=== PATIENT | female | born 1970 | race Caucasian/White ===

== ENCOUNTER 2016-12-20 16:10 | Emergency (ER) | payer BC ==
--- NOTE | 2016-12-20 17:06 | EDM.PDOC ---
ED HPI GENERAL MEDICAL PROBLEM - General Chief Complaint: Genitourinary Problem Stated Complaint: Dysuria Time Seen by Provider: 12/20/16 16:40 Source of Information: Reports: Patient History Limitations: Reports: No Limitations - History of Present Illness INITIAL COMMENTS - FREE TEXT/NARRATIVE: HISTORY AND PHYSICAL: History of present illness: [A she presents to the emergency room today with complaints of vaginal itching with discharge, irritation and discomfort to the internal and external genitalia , low back pain, appetite x 5 days. Reports that she thought [id number] Monistat insert with topical cream which she used 5 days ago. States she had mild relief with medication but continued to have symptoms. Continues to use the topical cream with no relief. This morning she woke up with low back pain, dark urine, and dysuria. Reports that she is and in a monogamous relationship with no concerns of STI's.] Review of systems: As per history of present illness and below otherwise all systems reviewed and negative. Past medical history: As per history of present illness and as reviewed below otherwise noncontributory. Surgical history: As per history of present illness and as reviewed below otherwise noncontributory. Social history: No reported history of drug or alcohol abuse. Family history: As per history of present illness and as reviewed below otherwise noncontributory. Physical exam: Gen.: 46-year-old female appears nontoxic. Appropriate for age HEENT: Atraumatic, normocephalic. Lungs: Clear to auscultation, breath sounds equal bilaterally, chest nontender. Heart: S1S2, regular, negative for clicks, rubs, or JVD. Abdomen: Soft, nondistended, mild suprapubic tenderness with palpation. Negative for masses or hepatosplenomegaly. Right costovertebral tenderness with palpation. Pelvis: Stable nontender. Genitourinary: External and internal genitalia appears inflamed and irritated. Yeast-like drainage noted. Genitalia is tender to touch. No speculum exam was completed at this time. Rectal: Deferred. Extremities: Atraumatic, negative for cords or calf pain. Neurovascular unremarkable. Neuro: Awake, alert, oriented. Motor and sensory unremarkable throughout. Exam nonfocal. Diagnostics: [UA, urine ] Therapeutics: [None] Impression: [Vulvovaginitis Cutaneous candidiasis, external genitalia] Plan: [Rx written for Diflucan 150 mg #2 sig one by mouth now, repeat in 3 days 0 refills, nystatin 100,000 units per gram #1 large tube sig apply to affected area 3 times a day 0 refills. Discussed with patient that her urinalysis appears unremarkable. Recommend she follow-up with her PCP if she is not improving later this week. Strict return precautions are reviewed with patient. All of her questions are answered and concerns are addressed.] Definitive disposition and diagnosis as appropriate pending reevaluation and review of above. 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: Endocrine/Metabolic History: Reports: Diabetes, Type II - Infectious Disease History Infectious Disease History: Reports: Chicken Pox - Past Surgical History Female Surgical History: Reports: Hysterectomy Social & Family History - Family History Family Medical History: Noncontributory Cardiac: Reports: Heart Failure, Hypertension, [place] - Tobacco Use Smoking Status *Q: Never Smoker Second Hand Smoke Exposure: No - Caffeine Use Caffeine Use: Reports: Coffee - Recreational Drug Use Recreational Drug Use: No ED ROS GENERAL - Review of Systems Review Of Systems: ROS reveals no pertinent complaints other than HPI. ED EXAM, RENAL/ - Physical Exam Exam: See Below (The history of present illness) Course - Vital Signs Last Recorded V/S: Last Vital Signs Temp 97.1 F 12/20/16 16:23 Pulse 90 12/20/16 16:23 Resp 20 12/20/16 16:23 BP 181/95 H 12/20/16 16:23 Pulse Ox 99 12/20/16 16:23 - Orders/Labs/Meds Labs: Laboratory Tests 12/20/16 12/20/16 Range/Units 16:48 16:48 Urine Color YELLOW Urine Appearance SLT CLOUDY Urine pH 6.0 (5.0-8.0) Ur Specific [place] 1.025 (1.001-1.035) Urine Protein NEGATIVE (NEGATIVE) mg/dL Urine Glucose (UA) >=1000 (NEGATIVE) mg/dL Urine Ketones NEGATIVE (NEGATIVE) mg/dL Urine Occult Blood SMALL H (NEGATIVE) Urine Nitrite NEGATIVE (NEGATIVE) Urine Bilirubin NEGATIVE (NEGATIVE) Urine Urobilinogen 4.0 H (<2.0) EU/dL Ur Leukocyte Esterase NEGATIVE (NEGATIVE) Urine RBC 1-2 (0-2/HPF) Urine WBC 3-5 (0-5/HPF) Ur Epithelial Cells MODERATE (NONE-FEW) Urine Bacteria FEW (NEGATIVE) Urine Yeast MODERATE Urine HCG, Qual NEGATIVE (NEGATIVE) Departure - Departure Time of Disposition: 17:41 Disposition: Home, Self-Care 01 Condition: Good Clinical Impression: Vulvovaginitis, Cutaneous candidiasis - Discharge Information Forms: ED Department Discharge Additional Instructions: The following information is given to patients seen in the emergency department who are being discharged to home. This information is to outline your options for follow-up care. We provide all patients seen in our emergency department with a follow-up referral. The need for follow-up, as well as the timing and circumstances, are variable depending upon the specifics of your emergency department visit. If you don't have a primary care physician on staff, we will provide you with a referral. We always advise you to contact your personal physician following an emergency department visit to inform them of the circumstance of the visit and for follow-up with them and/or the need for any referrals to a consulting specialist. The emergency department will also refer you to a specialist when appropriate. This referral assures that you have the opportunity for follow-up care with a specialist. All of these measure are taken in an effort to provide you with optimal care, which includes your follow-up. Under all circumstances we always encourage you to contact your private physician who remains a resource for coordinating your care. When calling for follow-up care, please make the office aware that this follow-up is from your recent emergency room visit. If for any reason you are refused follow-up, please contact the [facility] emergency department at and asked to speak to the emergency department charge nurse. [facility] [address] [place] [id number] Follow-up with your primary care provider at the clinic listed above in 48-72 hours. Take medications as prescribed. Return to ER as needed as discussed.
[2016-12-20 17:50] VITALS: BP 138/79
== END 2016-12-20 17:56 | disposition home or self-care (01) ==
LOC: MW.ED 16:10
DX: N76.0 Acute vaginitis (principal); B37.3 Candidiasis of vulva and vagina; E78.00 Pure hypercholesterolemia, unspecified; I10 Essential (primary) hypertension; J45.909 Unspecified asthma, uncomplicated; E11.9 Type 2 diabetes mellitus without complications; Z90.710 Acquired absence of both cervix and uterus; Z79.4 Long term (current) use of insulin; Z79.84 Long term (current) use of oral hypoglycemic drugs
CPT/HCPCS: 81001; 81025; 99283

== ENCOUNTER 2017-08-10 15:16 | Emergency (ER) | payer BC ==
[2017-08-10 15:39] VITALS: BP 171/77
--- NOTE | 2017-08-10 16:25 | EDM.PDOC ---
ED HPI GENERAL MEDICAL PROBLEM - General Chief Complaint: ENT Problem Stated Complaint: BLOODY NOSE 3RD TIME TODAY Time Seen by Provider: 08/10/17 16:05 Source of Information: Reports: Patient History Limitations: Reports: No Limitations - History of Present Illness INITIAL COMMENTS - FREE TEXT/NARRATIVE: HISTORY AND PHYSICAL: History of present illness: [Patient comes to the emergency room complaining of bloody she has had 3 today: 3 AM, 8:30 AM and 2:30 this afternoon. No known precipitating factor. No trauma. Checked her blood pressure at the time of her bloody nose this afternoon and had readings of 170s over 70s. Has been passing clots. States that she has filled 5 dish towels with blood. Was recently started on diclofenac for knee pain. Started medication on Tuesday. History of hypertension and type 2 diabetes. Most recent A1c was in May and was over 12. Denies headache, sore throat. No recent illness or infection. No chest pain shortness of breath and difficulty breathing.] Review of systems: As per history of present illness and below otherwise all systems reviewed and negative. Past medical history: As per history of present illness and as reviewed below otherwise noncontributory. Surgical history: As per history of present illness and as reviewed below otherwise noncontributory. Social history: No reported history of drug or alcohol abuse. Family history: As per history of present illness and as reviewed below otherwise noncontributory. Physical exam: HEENT: Atraumatic, normocephalic. Oral mucous membranes are pink and moist. Tonsillar swelling erythema or exudate. Dry blood in right nare. No active bleeding is appreciated. Unable to locate the source of bleeding. Neck supple, no lymphadenopathy. Lungs: Clear to auscultation, breath sounds equal bilaterally. Heart: S1S2, regular rate and rhythm. Abdomen: Soft, nondistended, nontender. Pelvis: Stable nontender. Genitourinary: Deferred. Rectal: Deferred. Extremities: Atraumatic. Neurovascular unremarkable. Neuro: Awake, alert, oriented. Motor and sensory unremarkable throughout. Exam nonfocal. Diagnostics: [CBC, BMP, PT/INR, TSH] Impression: [epistaxis ] Plan: [Cotton swabs soaked in lidocaine with epinephrine are inserted in R nare. Rhino Rocket are placed in R nare w/o difficulty. 8mL of air injected into bulb. Procedure is performed without difficulty. F/u in ER for removal in 72 hours. Strict return precautions are reviewed. ] Definitive disposition and diagnosis as appropriate pending reevaluation and review of above. 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: Musculoskeletal History: Reports: Fibromyalgia Endocrine/Metabolic History: Reports: Diabetes, Type II - Infectious Disease History Infectious Disease History: Reports: Chicken Pox - Past Surgical History Female Surgical History: Reports: Hysterectomy Social & Family History - Family History Family Medical History: Noncontributory Cardiac: Reports: Heart Failure, Hypertension, [place] Endocrine/Metabolic: Reports: Diabetes, type II - Tobacco Use Smoking Status *Q: Former Smoker Years of Tobacco use: 20 Packs/Tins Daily: 0 Used Tobacco, but Quit: Yes Month/Year Tobacco Last Used: 13 years ago Second Hand Smoke Exposure: No - Caffeine Use Caffeine Use: Reports: Coffee, Tea - Alcohol Use Days Per Week of Alcohol Use: 1 Number of Drinks Per Day: 2 Total Drinks Per Week: 2 - Recreational Drug Use Recreational Drug Use: No ED ROS ENT - Review of Systems Review Of Systems: ROS reveals no pertinent complaints other than HPI. ED EXAM, ENT - Physical Exam Exam: See Below Course - Vital Signs Last Recorded V/S: Last Vital Signs Temp 97.6 F 08/10/17 15:37 Pulse 93 08/10/17 15:37 Resp 18 08/10/17 15:37 BP 171/77 H 08/10/17 15:37 Pulse Ox 98 08/10/17 15:37 - Orders/Labs/Meds Labs: Laboratory Tests 08/10/17 08/10/17 08/10/17 Range/Units 16:30 16:30 16:30 WBC 4.49 (4.0-11.0) K/uL RBC 4.20 L (4.30-5.90) M/uL Hgb 11.4 L (12.0-16.0) g/dL Hct 34.7 L (36.0-46.0) % MCV 82.6 (80.0-98.0) fL MCH 27.1 (27.0-32.0) pg MCHC 32.9 (31.0-37.0) g/dL RDW Std Deviation 40.4 (28.0-62.0) fl RDW Coeff of Speedy 13 (11.0-15.0) % Plt Count 133 L (150-400) K/uL MPV 10.10 (7.40-12.00) fL Neut % (Auto) 72.6 (48.0-80.0) % Lymph % (Auto) 18.5 (16.0-40.0) % [place] % (Auto) 7.1 (0.0-15.0) % Eos % (Auto) 1.6 (0.0-7.0) % Baso % (Auto) 0.2 (0.0-1.5) % Neut # (Auto) 3.3 (1.4-5.7) K/uL Lymph # (Auto) 0.8 (0.6-2.4) K/uL [place] # (Auto) 0.3 (0.0-0.8) K/uL Eos # (Auto) 0.1 (0.0-0.7) K/uL Baso # (Auto) 0.0 (0.0-0.1) K/uL Nucleated RBC % 0.0 /100WBC Nucleated RBCs # 0 K/uL INR 1.04 APTT (18.6-31.3) SEC Sodium 142 (136-145) mmol/L Potassium 3.8 (3.5-5.1) mmol/L Chloride 106 (98-107) mmol/L Carbon Dioxide 28.8 (21.0-32.0) mmol/L BUN 19 H (7.0-18.0) mg/dL Creatinine 1.0 (0.6-1.0) mg/dL Est Cr Clr Drug Dosing 69.81 mL/min Estimated GFR (MDRD) > 60.0 ml/min Glucose 143 H (74-106) mg/dL Calcium 8.6 (8.5-10.1) mg/dL TSH 3rd Generation 1.69 (0.36-3.74) uIU/mL 08/10/17 Range/Units 16:30 WBC (4.0-11.0) K/uL RBC (4.30-5.90) M/uL Hgb (12.0-16.0) g/dL Hct (36.0-46.0) % MCV (80.0-98.0) fL MCH (27.0-32.0) pg MCHC (31.0-37.0) g/dL RDW Std Deviation (28.0-62.0) fl RDW Coeff of Speedy (11.0-15.0) % Plt Count (150-400) K/uL MPV (7.40-12.00) fL Neut % (Auto) (48.0-80.0) % Lymph % (Auto) (16.0-40.0) % [place] % (Auto) (0.0-15.0) % Eos % (Auto) (0.0-7.0) % Baso % (Auto) (0.0-1.5) % Neut # (Auto) (1.4-5.7) K/uL Lymph # (Auto) (0.6-2.4) K/uL [place] # (Auto) (0.0-0.8) K/uL Eos # (Auto) (0.0-0.7) K/uL Baso # (Auto) (0.0-0.1) K/uL Nucleated RBC % /100WBC Nucleated RBCs # K/uL INR APTT 27.5 (18.6-31.3) SEC Sodium (136-145) mmol/L Potassium (3.5-5.1) mmol/L Chloride (98-107) mmol/L Carbon Dioxide (21.0-32.0) mmol/L BUN (7.0-18.0) mg/dL Creatinine (0.6-1.0) mg/dL Est Cr Clr Drug Dosing mL/min Estimated GFR (MDRD) ml/min Glucose (74-106) mg/dL Calcium (8.5-10.1) mg/dL TSH 3rd Generation (0.36-3.74) uIU/mL Meds: Medications Discontinued Medications Generic Name Dose Route Start Last Admin Trade Name Cliff PRN Reason Stop Dose Admin Lidocaine/Epinephrine 20 ml 08/10/17 17:10 08/10/17 17:48 Xylocaine 1% With Epinephrine 1:100,000 INJECT 08/10/17 17:11 20 ml ONETIME ONE Administration Departure - Departure Time of Disposition: 17:15 Disposition: Home, Self-Care 01 Condition: Good Clinical Impression: Epistaxis - Discharge Information Instructions: Nosebleed, Adult, [id number] Referrals: Dianna Munoz PA [Primary Care Provider] - Forms: ED Department Discharge Additional Instructions: The following information is given to patients seen in the emergency department who are being discharged to home. This information is to outline your options for follow-up care. We provide all patients seen in our emergency department with a follow-up referral. The need for follow-up, as well as the timing and circumstances, are variable depending upon the specifics of your emergency department visit. If you don't have a primary care physician on staff, we will provide you with a referral. We always advise you to contact your personal physician following an emergency department visit to inform them of the circumstance of the visit and for follow-up with them and/or the need for any referrals to a consulting specialist. The emergency department will also refer you to a specialist when appropriate. This referral assures that you have the opportunity for follow-up care with a specialist. All of these measure are taken in an effort to provide you with optimal care, which includes your follow-up. Under all circumstances we always encourage you to contact your private physician who remains a resource for coordinating your care. When calling for follow-up care, please make the office aware that this follow-up is from your recent emergency room visit. If for any reason you are refused follow-up, please contact the [facility] emergency department at and asked to speak to the emergency department charge nurse. [facility] [address] [place] [id number] Return to the ER in 72 hours to have a Rhino Rocket removed. Take antibiotics as prescribed. Stop diclofenac. Return to ER as needed as discussed.
[2017-08-10] MEDS ORDERED: Lidocaine 1% with EPINEPHrine 1:100,000 20 ML MDV INJECT ONE (17:10)
[2017-08-10 17:12] LABS: CHLORIDE,CL 106 mmol/L (98-107); SODIUM,NA 142 mmol/L (136-145)
== END 2017-08-10 17:44 | disposition home or self-care (01) ==
LOC: MW.ED 15:16
DX: R04.0 Epistaxis (principal); I10 Essential (primary) hypertension; E11.9 Type 2 diabetes mellitus without complications; J45.909 Unspecified asthma, uncomplicated; Z87.891 Personal history of nicotine dependence
CPT/HCPCS: 30903; 36415; 80048; 84443; 85025; 85610; 85730; 99282; 99283

== ENCOUNTER 2018-09-06 08:29 | Observation (INO) | payer BC ==
[2018-09-06] MEDS ORDERED: Sodium Chloride 0.9% 10 ML Syringe FLUSH PRN (08:48)
[2018-09-06] MEDS ORDERED: Sodium Chloride 0.9% 1,000 ML IV ONE (08:48)
[2018-09-06] MEDS ORDERED: Sodium Chloride 0.9% 2.5 ML Syringe FLUSH PRN (08:48)
--- NOTE | 2018-09-06 08:53 | EDM.PDOC ---
ED HPI GENERAL MEDICAL PROBLEM - General Chief Complaint: Syncope Stated Complaint: SYNCOPE Time Seen by Provider: 09/06/18 08:39 - History of Present Illness INITIAL COMMENTS - FREE TEXT/NARRATIVE: HISTORY AND PHYSICAL: History of present illness: The patient is a 47-year-old male with a history of diabetes which is insulin requiring and follows in our clinic but has not been seen in the last one year and presents with a syncopal event that occurred at work. The patient says her blood sugar has been running in the 200 and 300s range and she has not followed up but she has been eating and drinking normally. The patient says she was having a normal morning when she bent over to pick something up and when she stood up she felt lightheaded and warm and then passed out briefly. 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 She currently complains of some neck soreness as well as a large lump on the left side of her scalp and is dizzy but not nauseated. She is awake alert and oriented and has no other complaints of extremity pain or back pain. She has been having some vague abdominal discomfort over the last few weeks which is not new or different. The patient had a total hysterectomy and denies . Patient has no cardiac history that she is aware of and has no syncope in the past. Review of systems: As per history of present illness and below otherwise all systems reviewed and negative. Past medical history: As per history of present illness and as reviewed below otherwise noncontributory. Surgical history: As per history of present illness and as reviewed below otherwise noncontributory. Social history: No reported history of drug or alcohol abuse. Family history: As per history of present illness and as reviewed below otherwise noncontributory. Physical exam: General: Well-developed well-nourished female who is nontoxic and is on a board and c-collar and the board was removed throughout the course of my examination but the c-collar was maintained. HEENT:normocephalic, pupils reactive, negative for conjunctival pallor or scleral icterus, mucous membranes moist, throat clear, neck supple, nontender, trachea midline. There is no evidence of any facial injury or or bony defects and TMs are normal bilaterally and there is no soft tissue swelling or bony defects of the face. There is a large scalp hematoma noted at the left parietal area which is tender but no bony defects or abrasions. There are no midline step -offs or defects appreciated of the cervical spine but there is some diffuse tenderness appreciated more on the left side so the c-collar was maintained Lungs: Clear to auscultation, breath sounds equal bilaterally, chest nontender. Heart: S1S2, regular rate and rhythm no overt murmurs Abdomen: Soft, nondistended, minimal diffuse tenderness without localization and bowel sounds are normoactive. Negative for masses or hepatosplenomegaly. Negative for costovertebral tenderness. Pelvis: Stable nontender. Genitourinary: Deferred. Rectal: Deferred. Extremities: Atraumatic, range of motion without defects or deformities or soft tissue swelling, negative for cords or calf pain. Neurovascular unremarkable. Neuro: Awake, alert, oriented. Cranial nerves II through XII unremarkable. Cerebellum unremarkable. Motor and sensory unremarkable throughout. Exam nonfocal. Back: There are no midline step-offs tenderness defects of the thoracic or lumbar spine no posterior rib or posterior pelvis tenderness and no soft tissue injuries are appreciated Diagnostics: EKG CBC CMP troponin TSH UA with reflex hemoglobin A1c chest x-ray CT scan of the head and C-spine [employer]: IV O2 monitor IV fluids Tylenol C-collar was removed after CT scan results were obtained 1025: This was discussed with our hospitalist Dr. Morris as well as with the patient and at bedside and we have all agreed on observation admission. Impression: Syncopal event, poorly controlled diabetes Definitive disposition and diagnosis as appropriate pending reevaluation and review of above. 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 ED EXAM, GENERAL - Physical Exam Exam: See Below (See dictation) Course - Vital Signs Last Recorded V/S: Last Vital Signs Temp 35.4 C 09/06/18 08:30 Pulse 81 09/06/18 08:30 Resp 18 09/06/18 08:30 BP 193/109 H 09/06/18 08:30 Pulse Ox 96 09/06/18 08:30 - Orders/Labs/Meds Orders: Active Orders 24 hr Category Date Time Status Patient Status [ADT] Stat ADT 09/06/18 10:25 Ordered Blood Glucose Check, Bedside [RC] ONETIME Care 09/06/18 08:47 Active Cardiac Monitoring [RC] . DIRECTED Care 09/06/18 08:47 Active EKG Documentation Completion [RC] STAT Care 09/06/18 08:47 Active Oxygen Therapy, ED [RC] ASDIRECTED Care 09/06/18 08:47 Active Pulse Oximetry [RC] ASDIRECTED Care 09/06/18 08:47 Active UA RFX SCAR AND CULT IF INDIC [URIN] Stat Lab 09/06/18 08:48 Ordered Sodium Chloride 0.9% [Saline Flush] Med 09/06/18 08:48 Active 10 ml FLUSH ASDIRECTED PRN Sodium Chloride 0.9% [Saline Flush] Med 09/06/18 08:48 Active 2.5 ml FLUSH ASDIRECTED PRN Saline Lock Insert [OM.PC] Stat Oth 09/06/18 08:47 Ordered Medication Orders Sodium Chloride (Saline Flush) 10 ml FLUSH ASDIRECTED PRN PRN Reason: Keep Vein Open Last Admin: 09/06/18 09:17 Dose: 10 ml Sodium Chloride (Saline Flush) 2.5 ml FLUSH ASDIRECTED PRN PRN Reason: Keep Vein Open Labs: Laboratory Tests 09/06/18 09/06/18 09/06/18 Range/Units 08:40 08:40 08:40 WBC 4.09 (4.0-11.0) K/uL RBC 4.81 (4.30-5.90) M/uL Hgb 13.2 (12.0-16.0) g/dL Hct 39.9 (36.0-46.0) % MCV 83.0 (80.0-98.0) fL MCH 27.4 (27.0-32.0) pg MCHC 33.1 (31.0-37.0) g/dL RDW Std Deviation 37.7 (28.0-62.0) fl RDW Coeff of Speedy 13 (11.0-15.0) % Plt Count 119 L (150-400) K/uL MPV 11.00 (7.40-12.00) fL Neut % (Auto) 73.9 (48.0-80.0) % Lymph % (Auto) 15.2 L (16.0-40.0) % [place] % (Auto) 9.5 (0.0-15.0) % Eos % (Auto) 1.2 (0.0-7.0) % Baso % (Auto) 0.2 (0.0-1.5) % Neut # (Auto) 3.0 (1.4-5.7) K/uL Lymph # (Auto) 0.6 (0.6-2.4) K/uL [place] # (Auto) 0.4 (0.0-0.8) K/uL Eos # (Auto) 0.1 (0.0-0.7) K/uL Baso # (Auto) 0.0 (0.0-0.1) K/uL Nucleated RBC % 0.0 /100WBC Nucleated RBCs # 0 K/uL Sodium 138 (136-145) mmol/L Potassium 4.2 (3.5-5.1) mmol/L Chloride 101 (98-107) mmol/L Carbon Dioxide 25.6 (21.0-32.0) mmol/L BUN 13 (7.0-18.0) mg/dL Creatinine 0.8 (0.6-1.0) mg/dL Est Cr Clr Drug Dosing 89.58 mL/min Estimated GFR (MDRD) > 60.0 ml/min Glucose 368 H (74-106) mg/dL Hemoglobin A1c 11.5 H (4.5-6.2) % Calcium 9.0 (8.5-10.1) mg/dL Total Bilirubin 0.8 (0.2-1.0) mg/dL AST 18 (15-37) IU/L ALT 44 (14-63) IU/L Alkaline Phosphatase 82 (46-116) U/L Troponin I < 0.050 (0.000-0.056) ng/mL Total Protein 7.0 (6.4-8.2) g/dL Albumin 3.6 (3.4-5.0) g/dL Globulin 3.4 (2.6-4.0) g/dL Albumin/Globulin Ratio 1.1 (0.9-1.6) TSH 3rd Generation 1.03 (0.36-3.74) uIU/mL Meds: Medications Generic Name Dose Route Start Last Admin Trade Name Freq PRN Reason Stop Dose Admin Sodium Chloride 10 ml 09/06/18 08:48 09/06/18 09:17 Saline Flush FLUSH 10 ml ASDIRECTED PRN Administration Keep Vein Open Sodium Chloride 2.5 ml 09/06/18 08:48 Saline Flush FLUSH ASDIRECTED PRN Keep Vein Open Discontinued Medications Generic Name Dose Route Start Last Admin Trade Name Freq PRN Reason Stop Dose Admin Acetaminophen 1,000 mg 09/06/18 10:13 Tylenol Extra Strength PO 09/06/18 10:14 ONETIME ONE Sodium Chloride 1,000 mls @ 999 mls/hr 09/06/18 08:48 09/06/18 09:12 Normal Saline IV 09/06/18 09:48 999 mls/hr STAT ONE Administration Departure - Departure Time of Disposition: 10:26 Disposition: Refer to Observation Condition: Good Clinical Impression: Syncope Qualifiers: Syncope type: unspecified Qualified Code(s): R55 - Syncope and collapse - Discharge Information Referrals: PCP,Unknown [Primary Care Provider] - Forms: ED Department Discharge - My Orders Last 24 Hours: My Active Orders 09/06/18 08:47 Blood Glucose Check, Bedside [RC] ONETIME Cardiac Monitoring [RC] . DIRECTED EKG Documentation Completion [RC] STAT Oxygen Therapy, ED [RC] ASDIRECTED Pulse Oximetry [RC] ASDIRECTED Saline Lock Insert [OM.PC] Stat 09/06/18 08:48 UA RFX SCAR AND CULT IF INDIC [URIN] Stat Sodium Chloride 0.9% [Saline Flush] 10 ml FLUSH ASDIRECTED PRN Sodium Chloride 0.9% [Saline Flush] 2.5 ml FLUSH ASDIRECTED PRN 09/06/18 10:25 Patient Status [ADT] Stat - Assessment/Plan Last 24 Hours: My Active Orders 09/06/18 08:47 Blood Glucose Check, Bedside [RC] ONETIME Cardiac Monitoring [RC] . DIRECTED EKG Documentation Completion [RC] STAT Oxygen Therapy, ED [RC] ASDIRECTED Pulse Oximetry [RC] ASDIRECTED Saline Lock Insert [OM.PC] Stat 09/06/18 08:48 UA RFX SCAR AND CULT IF INDIC [URIN] Stat Sodium Chloride 0.9% [Saline Flush] 10 ml FLUSH ASDIRECTED PRN Sodium Chloride 0.9% [Saline Flush] 2.5 ml FLUSH ASDIRECTED PRN 09/06/18 10:25 Patient Status [ADT] Stat
[2018-09-06 09:28] LABS: CHLORIDE,CL 101 mmol/L (98-107); SODIUM,NA 138 mmol/L (136-145)
[2018-09-06 09:32] LABS: HEMOGLOBIN A1C 11.5 % (4.5-6.2)
--- NOTE | 2018-09-06 09:34 | CR ---
EXAMINATION: Portable chest radiograph. HISTORY: Shortness of breath. FINDINGS: The trachea is midline. The cardiomediastinal silhouette is within normal limits. No consolidations, effusions or pneumothorax. Mild interstitial prominence noted bilaterally. Osseous structures appear unremarkable. IMPRESSION: 1. Interstitial prominence noted bilaterally, nonspecific. This could represent an atypical infectious process or early edema.
--- NOTE | 2018-09-06 09:47 | CT ---
EXAMINATION: Non contrast CT head. Coronal and sagittal reformats. HISTORY: Pain FINDINGS: No evidence of intra or extra axial hemorrhage, mass, midline shift, hydrocephalus or edema. No hypoattenuation changes in the major vascular territories to suggest acute infarct. No abnormal intracranial calcifications are detected. No evidence of substantial vascular calcifications. Paranasal sinuses and mastoid air cells are well aerated without substantial findings. Pituitary fossa appears unremarkable. Soft tissue hematoma overlying the left parietal region. Orbits and globes are symmetric. Calvarium is intact. No evidence of skull fracture. IMPRESSION: No acute intracranial findings.
--- NOTE | 2018-09-06 09:52 | CT ---
EXAMINATION: CT cervical spine HISTORY: Pain COMPARISON: None TECHNIQUE: Axial CT imaging obtained through the cervical spine without contrast. Coronal and sagittal reconstructions obtained. FINDINGS: There is straightening of the normal cervical lordosis. Vertebral body heights and disc spaces appear well-maintained. Bone mineralization is normal. There is no fracture or acute osseous abnormality. Paravertebral soft tissues appear normal. Multiple borderline lymph nodes noted within the superior mediastinum. Vague 1 cm pleural-based nodular area within the right upper lobe posteriorly. Likely mild interlobular septal thickening within the apices as well. IMPRESSION: 1. No acute cervical spinal abnormality. 2. Vague 1 cm pleural-based nodule within the right apex, short-term follow-up may be beneficial. 3. Possible mild intralobular septal thickening within the apices, this may suggest pulmonary edema. 4. Multiple nonspecific borderline superior mediastinal lymph nodes, possibly reactive however these could be followed up nodule.
[2018-09-06] MEDS ORDERED: Acetaminophen 500 MG Tab PO ONE (10:13)
--- NOTE | 2018-09-06 13:43 | PCM.HP ---
<Joanne Lezama M - Last Filed: 09/06/18 16:53> H&P History of Present Illness - General Date of Service: 09/06/18 Admit Problem/Dx: Admission Diagnosis/Problem Admission Diagnosis/Problem Syncope Source of Information: Patient History Limitations: Reports: No Limitations - History of Present Illness Initial Comments - Free Text/Narative: This 47 year old female with pmh of DM Type 2, non complaint with medication regimen, and sarcoidosis presented to the ED via EMS after she had a syncopal episode at work. She reports she has been feeling well prior to today and even up to event. She denies any recent URI symptoms. 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 She felt off and dizzy and was in the process of reaching around for her water bottle and then woke up with people around her and she was on the floor. She did hit her head, has a mild head ache and neck strain, she thinks from the C collar placed by EMS. She also has a large bump on the left side of her head which is tender. She denies blurred vision or double vision. She denies chest pain or SOB. She denies urinary concerns. No diarrhea or constipation and no abdominal pain. She reports she stopped taking her metformin 2 1/2 months ago as well as insulin, she was not seeing improvement with her blood sugars, so she figured Ill just stop all these medications. She denies recreational drug use, rare alcohol use, and no tobacco use, but is exposed to second hand smoke. In the ED Labwork WNL. Glucose 368 and A1c 11.5. Troponin negative. EKG SR with no acute ST segment changes, LVH noted. Head CT negative. CT cervical spine negative for acute cervical spine abnormalities. It did reveal vague 1 cm pleural based nodule in the R apex. Possible intralobular septal thickening, may suggest pulmonary edema, multiple non specific borderline superior mediastinal lymph nodes. She was given Tylenol for a headache. Admitted observation for syncope. left head Pain Score (Numeric/FACES): 8 - Related Data Allergies/Adverse Reactions: Allergies Allergy/AdvReac Type Severity Reaction Status Date / Time No Known Allergies Allergy Verified 09/06/18 08:48 Home Medications: Home Meds metFORMIN HCl [Metformin HCl] 1,000 mg PO BID 12/20/16 [History] Past Medical History HEENT History: Reports: None Cardiovascular History: Reports: High Cholesterol, Hypertension. Denies: Afib, Blood Clots/VTE/DVT, CAD, MD Respiratory History: Reports: Asthma, Other (See Below) (Sarcoidosis, with enlarged lymph nodes in chest) Gastrointestinal History: Reports: None. Denies: GERD, GI Bleed Genitourinary History: Reports: None. 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 Denies: CVA, Migraines, TIA Psychiatric History: Reports: None Endocrine/Metabolic History: Reports: Diabetes, Type II, Obesity/BMI 30+ Hematologic History: Reports: None Immunologic History: Reports: None Oncologic (Cancer) History: Reports: None Dermatologic History: Reports: None - Infectious Disease History Infectious Disease History: Reports: Chicken Pox - Past Surgical History Head Surgeries/Procedures: Reports: None HEENT Surgical History: Reports: None Respiratory Surgical History: Reports: Lung Biopsies GI Surgical History: Reports: None Female Surgical History: Reports: Hysterectomy Neurological Surgical History: Reports: None Oncologic Surgical History: Reports: None Dermatological Surgical History: Reports: None Social & Family History - Family History Family Medical History: Noncontributory Cardiac: Reports: Heart Failure, Hypertension, MD Endocrine/Metabolic: Reports: Diabetes, type II - Tobacco Use Smoking Status *Q: Never Smoker Second Hand Smoke Exposure: Yes - Caffeine Use Caffeine Use: Reports: Coffee - Alcohol Use Alcohol Use History: No - Recreational Drug Use Recreational Drug Use: No - Living Situation & Occupation Living situation: Reports: Occupation: Employed H&P Review of Systems - Review of Systems: Review Of Systems: See Below General: Reports: No Symptoms. Denies: Fever, Chills, Malaise, Weakness HEENT: Reports: Headaches, Vertigo. Denies: Ear Pain, Sinus Congestion, Visual Changes Pulmonary: Reports: No Symptoms. Denies: Shortness of Breath, Wheezing, Cough, Sputum Cardiovascular: Reports: Syncope. Denies: Chest Pain, Edema Gastrointestinal: Reports: No Symptoms. Denies: Abdominal Pain, Black Stool, Bloody Stool, Nausea, Vomiting Genitourinary: Reports: No Symptoms. Denies: Dysuria, Frequency, Burning Musculoskeletal: Reports: No Symptoms Skin: Reports: No Symptoms Psychiatric: Reports: No Symptoms Neurological: Reports: No Symptoms. Denies: Confusion, Headache, Numbness, Paresthesia, Tremors, Difficulty Walking, Weakness Hematologic/Lymphatic: Reports: No Symptoms Immunologic: Reports: No Symptoms Exam - Exam Exam: See Below - Vital Signs Vital Signs: Last Vital Signs Temp 97.4 F 09/06/18 11:25 Pulse 84 09/06/18 11:25 Resp 18 09/06/18 11:25 BP 179/82 H 09/06/18 11:25 Pulse Ox 97 09/06/18 11:25 Orthostatic Blood Pressure [ 146/73 Standing] Orthostatic Blood Pressure [ 143/74 Sitting] Orthostatic Blood Pressure [ 145/73 Supine] Weight: 122.47 kg - Exam General: Alert, Oriented, Cooperative HEENT: Conjunctiva Clear, Hearing Intact, Mucosa Moist & [place], Posterior Pharynx Clear, Pupils Reactive, TMs Clear, Other (swelling noted to L top of scalp from fall) Neck: Supple, Trachea Midline, Full Range of Motion. No: Lymphadenopathy Lungs: Clear to Auscultation, Normal Respiratory Effort Cardiovascular: Regular Rate, Regular Rhythm, Normal S1, Normal S2. No: Systolic Murmur GI/Abdominal Exam: Normal Bowel Sounds, Soft, Non-Tender, No Distention Extremities: Normal Inspection, Normal Range of Motion, Non-Tender, No Pedal Edema Neurological: Cranial Nerves Intact Neuro Extensive - Mental Status: Alert, Oriented x3 Neuro Extensive - Motor, Sensory, Reflexes: CN II-XII Intact, Normal Gait, Normal Reflexes, Other (Nystagmus noted with Head turn to R with increased dizziness, minimal when turning to L.) - Patient Data Lab Results Last 24 hrs: Laboratory Results - last 24 hr 09/06/18 09/06/18 09/06/18 Range/Units 08:40 08:40 08:40 WBC 4.09 (4.0-11.0) K/uL RBC 4.81 (4.30-5.90) M/uL Hgb 13.2 (12.0-16.0) g/dL Hct 39.9 (36.0-46.0) % MCV 83.0 (80.0-98.0) fL MCH 27.4 (27.0-32.0) pg MCHC 33.1 (31.0-37.0) g/dL RDW Std Deviation 37.7 (28.0-62.0) fl RDW Coeff of Speedy 13 (11.0-15.0) % Plt Count 119 L (150-400) K/uL MPV 11.00 (7.40-12.00) fL Neut % (Auto) 73.9 (48.0-80.0) % Lymph % (Auto) 15.2 L (16.0-40.0) % Mil[place] % (Auto) 9.5 (0.0-15.0) % Eos % (Auto) 1.2 (0.0-7.0) % Baso % (Auto) 0.2 (0.0-1.5) % Neut # (Auto) 3.0 (1.4-5.7) K/uL Lymph # (Auto) 0.6 (0.6-2.4) K/uL Mil[place] # (Auto) 0.4 (0.0-0.8) K/uL Eos # (Auto) 0.1 (0.0-0.7) K/uL Baso # (Auto) 0.0 (0.0-0.1) K/uL Nucleated RBC % 0.0 /100WBC Nucleated RBCs # 0 K/uL Sodium 138 (136-145) mmol/L Potassium 4.2 (3.5-5.1) mmol/L Chloride 101 (98-107) mmol/L Carbon Dioxide 25.6 (21.0-32.0) mmol/L BUN 13 (7.0-18.0) mg/dL Creatinine 0.8 (0.6-1.0) mg/dL Est Cr Clr Drug Dosing 89.58 mL/min Estimated GFR (MDRD) > 60.0 ml/min Glucose 368 H (74-106) mg/dL Hemoglobin A1c 11.5 H (4.5-6.2) % Calcium 9.0 (8.5-10.1) mg/dL Total Bilirubin 0.8 (0.2-1.0) mg/dL AST 18 (15-37) IU/L ALT 44 (14-63) IU/L Alkaline Phosphatase 82 (46-116) U/L Troponin I < 0.050 (0.000-0.056) ng/mL Total Protein 7.0 (6.4-8.2) g/dL Albumin 3.6 (3.4-5.0) g/dL Globulin 3.4 (2.6-4.0) g/dL Albumin/Globulin Ratio 1.1 (0.9-1.6) TSH 3rd Generation 1.03 (0.36-3.74) uIU/mL Urine Color Urine Appearance Urine pH (5.0-8.0) Ur Specific [place] (1.001-1.035) Urine Protein (NEGATIVE) mg/dL Urine Glucose (UA) (NEGATIVE) mg/dL Urine Ketones (NEGATIVE) mg/dL Urine Occult Blood (NEGATIVE) Urine Nitrite (NEGATIVE) Urine Bilirubin (NEGATIVE) Urine Urobilinogen (<2.0) EU/dL Ur Leukocyte Esterase (NEGATIVE) Urine RBC (0-2/HPF) Urine WBC (0-5/HPF) Ur Epithelial Cells (NONE-FEW) Urine Bacteria (NEGATIVE) Urine Yeast 09/06/18 Range/Units 12:20 WBC (4.0-11.0) K/uL RBC (4.30-5.90) M/uL Hgb (12.0-16.0) g/dL Hct (36.0-46.0) % MCV (80.0-98.0) fL MCH (27.0-32.0) pg MCHC (31.0-37.0) g/dL RDW Std Deviation (28.0-62.0) fl RDW Coeff of Speedy (11.0-15.0) % Plt Count (150-400) K/uL MPV (7.40-12.00) fL Neut % (Auto) (48.0-80.0) % Lymph % (Auto) (16.0-40.0) % [place] % (Auto) (0.0-15.0) % Eos % (Auto) (0.0-7.0) % Baso % (Auto) (0.0-1.5) % Neut # (Auto) (1.4-5.7) K/uL Lymph # (Auto) (0.6-2.4) K/uL [place] # (Auto) (0.0-0.8) K/uL Eos # (Auto) (0.0-0.7) K/uL Baso # (Auto) (0.0-0.1) K/uL Nucleated RBC % /100WBC Nucleated RBCs # K/uL Sodium (136-145) mmol/L Potassium (3.5-5.1) mmol/L Chloride (98-107) mmol/L Carbon Dioxide (21.0-32.0) mmol/L BUN (7.0-18.0) mg/dL Creatinine (0.6-1.0) mg/dL Est Cr Clr Drug Dosing mL/min Estimated GFR (MDRD) ml/min Glucose (74-106) mg/dL Hemoglobin A1c (4.5-6.2) % Calcium (8.5-10.1) mg/dL Total Bilirubin (0.2-1.0) mg/dL AST (15-37) IU/L ALT (14-63) IU/L Alkaline Phosphatase (46-116) U/L Troponin I (0.000-0.056) ng/mL Total Protein (6.4-8.2) g/dL Albumin (3.4-5.0) g/dL Globulin (2.6-4.0) g/dL Albumin/Globulin Ratio (0.9-1.6) TSH 3rd Generation (0.36-3.74) uIU/mL Urine Color YELLOW Urine Appearance SLT CLOUDY Urine pH 6.0 (5.0-8.0) Ur Specific [place] 1.020 (1.001-1.035) Urine Protein 30 H (NEGATIVE) mg/dL Urine Glucose (UA) >=1000 (NEGATIVE) mg/dL Urine Ketones NEGATIVE (NEGATIVE) mg/dL Urine Occult Blood TRACE-INTACT H (NEGATIVE) Urine Nitrite NEGATIVE (NEGATIVE) Urine Bilirubin NEGATIVE (NEGATIVE) Urine Urobilinogen 0.2 (<2.0) EU/dL Ur Leukocyte Esterase NEGATIVE (NEGATIVE) Urine RBC 0-1 (0-2/HPF) Urine WBC 0-1 (0-5/HPF) Ur Epithelial Cells OCCASIONAL (NONE-FEW) Urine Bacteria RARE (NEGATIVE) Urine Yeast MODERATE Result Diagrams: 09/06/18 08:40 09/06/18 08:40 EKG INTERPRETATION EKG Date: 09/06/18 Rhythm: NSR Rate (Beats/Min): 80 Roberts: LAD-Left Roberts Deviation P-Wave: Present QRS: Normal (LVH noted) ST-T: Normal QT: Normal - Problem List (1) Vertigo SNOMED Code(s): 157338281 ICD Code: R42 - DIZZINESS AND GIDDINESS Status: Acute Current Visit: Yes (2) Syncope SNOMED Code(s): 619486142 ICD Code: R55 - SYNCOPE AND COLLAPSE Status: Acute Current Visit: Yes Qualifiers: Syncope type: unspecified Qualified Code(s): R55 - Syncope and collapse (3) Sarcoidosis of lung SNOMED Code(s): 46866314 ICD Code: D86.0 - SARCOIDOSIS OF LUNG Status: Chronic Current Visit: Yes (4) DM type 2 (diabetes mellitus, type 2) SNOMED Code(s): 86283827 ICD Code: E11.9 - TYPE 2 DIABETES MELLITUS WITHOUT COMPLICATIONS Status: Chronic Current Visit: Yes Qualifiers: 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: without senior living use Diabetes mellitus complication status: with hyperglycemia Qualified Code(s): E11.65 - Type 2 diabetes mellitus with hyperglycemia (5) Non-compliance with treatment SNOMED Code(s): 5023167 ICD Code: Z91.19 - PATIENT'S NONCOMPLIANCE W OTH MEDICAL TREATMENT AND REGIMEN Status: Chronic Current Visit: Yes (6) Obesity SNOMED Code(s): 304464156, 161476912 ICD Code: E66.9 - OBESITY, UNSPECIFIED Status: Chronic Current Visit: Yes (7) Pulmonary nodule SNOMED Code(s): 358533277 ICD Code: R91.1 - SOLITARY PULMONARY NODULE Status: Chronic Current Visit : No Problem List Initiated/Reviewed/Updated: Yes Orders Last 24hrs: Active Orders 24 hr Category Date Time Status Patient Status [ADT] Stat ADT 09/06/18 10:25 Active Blood Glucose Check, Bedside [RC] ONETIME Care 09/06/18 08:47 Active Blood Glucose Check, Bedside [RC] TIDAC Care 09/06/18 12:47 Active Cardiac Monitoring [RC] . DIRECTED Care 09/06/18 08:47 Active EKG Documentation Completion [RC] STAT Care 09/06/18 08:47 Active Intake and Output [RC] QSHIFT Care 09/06/18 12:45 Active Orthostatic Vital Signs [RC] ASDIRECTED Care 09/06/18 11:17 Active Oxygen Therapy [RC] PRN Care 09/06/18 12:45 Active Oxygen Therapy, ED [RC] ASDIRECTED Care 09/06/18 08:47 Active Pulse Oximetry [RC] ASDIRECTED Care 09/06/18 08:47 Active Telemetry Monitoring [Cardiac Monitoring] [RC] . Care 09/06/18 12:46 Active DIRECTED Up With Assistance [RC] ASDIRECTED Care 09/06/18 12:45 Active Up to Chair [RC] ASDIRECTED Care 09/06/18 12:45 Active VTE/DVT Education [RC] PER UNIT ROUTINE Care 09/06/18 12:45 Active Vital Signs [RC] Q4H Care 09/06/18 12:45 Active Consult to DM [Consult to Diabetic Nurse Specialist] [ Cons 09/06/18 13:33 Ordered CONS] Routine Consult to Physical Therapy [PT Evaluation and Cons 09/06/18 13:33 Ordered Treatment] [CONS] Routine [place] Diet [DIET] Diet 09/06/18 Lunch Active Acetaminophen [Tylenol] Med 09/06/18 12:45 Active 650 mg PO Q4H PRN Insulin Aspart [NovoLOG] Med 09/06/18 12:47 Active See Protocol SUBCUT TIDAC Insulin Glarg,Human.Rec.Analog [LantUS Solostar] Med 09/06/18 21:00 Active 12 units SUBCUT BEDTIME Sodium Chloride 0.9% [Saline Flush] Med 09/06/18 08:48 Active 10 ml FLUSH ASDIRECTED PRN Sodium Chloride 0.9% [Saline Flush] Med 09/06/18 08:48 Active 2.5 ml FLUSH ASDIRECTED PRN Saline Lock Insert [OM.PC] Stat Oth 09/06/18 08:47 Ordered Resuscitation Status Routine Resus Stat 09/06/18 12:45 Ordered Medication Orders Acetaminophen (Tylenol) 650 mg PO Q4H PRN PRN Reason: Pain (mild 1-3) Insulin Aspart (Novolog) 0 unit SUBCUT TIDAC DUNIA; Protocol Insulin Glargine (Lantus Solostar) 12 units SUBCUT BEDTIME DUNIA Sodium Chloride (Saline Flush) 10 ml FLUSH ASDIRECTED PRN PRN Reason: Keep Vein Open Last Admin: 09/06/18 09:17 Dose: 10 ml Sodium Chloride (Saline Flush) 2.5 ml FLUSH ASDIRECTED PRN PRN Reason: Keep Vein Open Last Admin: 09/06/18 10:41 Dose: 2.5 ml Assessment/Plan Comment:: This 47 year old female admitted with syncope and noted to be non complaint with DM Type 2 treatment. 1. Vertigo: Consider BPPV due to nystagmus with movement of head to R. Consult PT for vestibular evaluation and treatment. Orthostatic BPs WNL. 2. DM Type 2: Discussed with her the concerns of not treating BP and the consequences of this. She verbally understood. She agreed with Novolog pre meals and Lantus tonight. Will Consult DM educator. 3. HTN: Elevated in the ED, reports BP is normally 120-140/80s. Will monitor, may consider starting KATHY if they remain elevated. VTE prophylaxis: SCDs Dispo: 1-2 days <Michael Morris - Last Filed: 09/06/18 17:01> H&P History of Present Illness - General Admit Problem/Dx: Admission Diagnosis/Problem Admission Diagnosis/Problem Syncope I have seen and examined to patient independently of Joanne Lezama CNP. I have discussed the case for care of this patient with her. I have reviewed and approve of the plan of care as outlined by GRAVITY PROSPECTING OBSERVER. Please see orders. Exam - Vital Signs Vital Signs: Last Vital Signs Temp 36.3 C 09/06/18 11:25 Pulse 84 09/06/18 11:25 Resp 18 09/06/18 11:25 BP 179/82 H 09/06/18 11:25 Pulse Ox 97 09/06/18 11:25 Orthostatic Blood Pressure [ 146/73 Standing] Orthostatic Blood Pressure [ 143/74 Sitting] Orthostatic Blood Pressure [ 145/73 Supine] - Patient Data Lab Results Last 24 hrs: Laboratory Results - last 24 hr 09/06/18 09/06/18 09/06/18 Range/Units 08:40 08:40 08:40 WBC 4.09 (4.0-11.0) K/uL RBC 4.81 (4.30-5.90) M/uL Hgb 13.2 (12.0-16.0) g/dL Hct 39.9 (36.0-46.0) % MCV 83.0 (80.0-98.0) fL MCH 27.4 (27.0-32.0) pg MCHC 33.1 (31.0-37.0) g/dL RDW Std Deviation 37.7 (28.0-62.0) fl RDW Coeff of Speedy 13 (11.0-15.0) % Plt Count 119 L (150-400) K/uL MPV 11.00 (7.40-12.00) fL Neut % (Auto) 73.9 (48.0-80.0) % Lymph % (Auto) 15.2 L (16.0-40.0) % [place] % (Auto) 9.5 (0.0-15.0) % Eos % (Auto) 1.2 (0.0-7.0) % Baso % (Auto) 0.2 (0.0-1.5) % Neut # (Auto) 3.0 (1.4-5.7) K/uL Lymph # (Auto) 0.6 (0.6-2.4) K/uL [place] # (Auto) 0.4 (0.0-0.8) K/uL Eos # (Auto) 0.1 (0.0-0.7) K/uL Baso # (Auto) 0.0 (0.0-0.1) K/uL Nucleated RBC % 0.0 /100WBC Nucleated RBCs # 0 K/uL Sodium 138 (136-145) mmol/L Potassium 4.2 (3.5-5.1) mmol/L Chloride 101 (98-107) mmol/L Carbon Dioxide 25.6 (21.0-32.0) mmol/L BUN 13 (7.0-18.0) mg/dL Creatinine 0.8 (0.6-1.0) mg/dL Est Cr Clr Drug Dosing 89.58 mL/min Estimated GFR (MDRD) > 60.0 ml/min Glucose 368 H (74-106) mg/dL POC Glucose (60-110) mg/dL Hemoglobin A1c 11.5 H (4.5-6.2) % Calcium 9.0 (8.5-10.1) mg/dL Total Bilirubin 0.8 (0.2-1.0) mg/dL AST 18 (15-37) IU/L ALT 44 (14-63) IU/L Alkaline Phosphatase 82 (46-116) U/L Troponin I < 0.050 (0.000-0.056) ng/mL Total Protein 7.0 (6.4-8.2) g/dL Albumin 3.6 (3.4-5.0) g/dL Globulin 3.4 (2.6-4.0) g/dL Albumin/Globulin Ratio 1.1 (0.9-1.6) TSH 3rd Generation 1.03 (0.36-3.74) uIU/mL Urine Color Urine Appearance Urine pH (5.0-8.0) Ur Specific [place] (1.001-1.035) Urine Protein (NEGATIVE) mg/dL Urine Glucose (UA) (NEGATIVE) mg/dL Urine Ketones (NEGATIVE) mg/dL Urine Occult Blood (NEGATIVE) Urine Nitrite (NEGATIVE) Urine Bilirubin (NEGATIVE) Urine Urobilinogen (<2.0) EU/dL Ur Leukocyte Esterase (NEGATIVE) Urine RBC (0-2/HPF) Urine WBC (0-5/HPF) Ur Epithelial Cells (NONE-FEW) Urine Bacteria (NEGATIVE) Urine Yeast 09/06/18 09/06/18 Range/Units 12:20 13:33 WBC (4.0-11.0) K/uL RBC (4.30-5.90) M/uL Hgb (12.0-16.0) g/dL Hct (36.0-46.0) % MCV (80.0-98.0) fL MCH (27.0-32.0) pg MCHC (31.0-37.0) g/dL RDW Std Deviation (28.0-62.0) fl RDW Coeff of Speedy (11.0-15.0) % Plt Count (150-400) K/uL MPV (7.40-12.00) fL Neut % (Auto) (48.0-80.0) % Lymph % (Auto) (16.0-40.0) % [place] % (Auto) (0.0-15.0) % Eos % (Auto) (0.0-7.0) % Baso % (Auto) (0.0-1.5) % Neut # (Auto) (1.4-5.7) K/uL Lymph # (Auto) (0.6-2.4) K/uL [place] # (Auto) (0.0-0.8) K/uL Eos # (Auto) (0.0-0.7) K/uL Baso # (Auto) (0.0-0.1) K/uL Nucleated RBC % /100WBC Nucleated RBCs # K/uL Sodium (136-145) mmol/L Potassium (3.5-5.1) mmol/L Chloride (98-107) mmol/L Carbon Dioxide (21.0-32.0) mmol/L BUN (7.0-18.0) mg/dL Creatinine (0.6-1.0) mg/dL Est Cr Clr Drug Dosing mL/min Estimated GFR (MDRD) ml/min Glucose (74-106) mg/dL POC Glucose 259 H (60-110) mg/dL Hemoglobin A1c (4.5-6.2) % Calcium (8.5-10.1) mg/dL Total Bilirubin (0.2-1.0) mg/dL AST (15-37) IU/L ALT (14-63) IU/L Alkaline Phosphatase (46-116) U/L Troponin I (0.000-0.056) ng/mL Total Protein (6.4-8.2) g/dL Albumin (3.4-5.0) g/dL Globulin (2.6-4.0) g/dL Albumin/Globulin Ratio (0.9-1.6) TSH 3rd Generation (0.36-3.74) uIU/mL Urine Color YELLOW Urine Appearance SLT CLOUDY Urine pH 6.0 (5.0-8.0) Ur Specific [place] 1.020 (1.001-1.035) Urine Protein 30 H (NEGATIVE) mg/dL Urine Glucose (UA) >=1000 (NEGATIVE) mg/dL Urine Ketones NEGATIVE (NEGATIVE) mg/dL Urine Occult Blood TRACE-INTACT H (NEGATIVE) Urine Nitrite NEGATIVE (NEGATIVE) Urine Bilirubin NEGATIVE (NEGATIVE) Urine Urobilinogen 0.2 (<2.0) EU/dL Ur Leukocyte Esterase NEGATIVE (NEGATIVE) Urine RBC 0-1 (0-2/HPF) Urine WBC 0-1 (0-5/HPF) Ur Epithelial Cells OCCASIONAL (NONE-FEW) Urine Bacteria RARE (NEGATIVE) Urine Yeast MODERATE Result Diagrams: 09/06/18 08:40 09/06/18 08:40 Orders Last 24hrs: Active Orders 24 hr Category Date Time Status Patient Status [ADT] Stat ADT 09/06/18 10:25 Active Blood Glucose Check, Bedside [RC] ONETIME Care 09/06/18 08:47 Active Blood Glucose Check, Bedside [RC] TIDAC Care 09/06/18 12:47 Active Cardiac Monitoring [RC] . DIRECTED Care 09/06/18 08:47 Active EKG Documentation Completion [RC] STAT Care 09/06/18 08:47 Active Intake and Output [RC] QSHIFT Care 09/06/18 12:45 Active Orthostatic Vital Signs [RC] ASDIRECTED Care 09/06/18 11:17 Active Oxygen Therapy [RC] PRN Care 09/06/18 12:45 Active Oxygen Therapy, ED [RC] ASDIRECTED Care 09/06/18 08:47 Active Pulse Oximetry [RC] ASDIRECTED Care 09/06/18 08:47 Active Telemetry Monitoring [Cardiac Monitoring] [RC] . Care 09/06/18 12:46 Active DIRECTED Up With Assistance [RC] ASDIRECTED Care 09/06/18 12:45 Active Up to Chair [RC] ASDIRECTED Care 09/06/18 12:45 Active VTE/DVT Education [RC] PER UNIT ROUTINE Care 09/06/18 12:45 Active Vital Signs [RC] Q4H Care 09/06/18 12:45 Active Consult to DM [Consult to Diabetic Nurse Specialist] [ Cons 09/06/18 13:33 Active CONS] Routine Consult to Physical Therapy [PT Evaluation and Cons 09/06/18 13:33 Active Treatment] [CONS] Routine [employer] [place] Diet [DIET] Diet 09/06/18 Lunch Active Acetaminophen [Tylenol] Med 09/06/18 12:45 Active 650 mg PO Q4H PRN Insulin Aspart [NovoLOG] Med 09/06/18 12:47 Active See Protocol SUBCUT TIDAC Insulin Glarg,Human.Rec.Analog [LantUS Solostar] Med 09/06/18 21:00 Active 12 units SUBCUT BEDTIME Sodium Chloride 0.9% [Saline Flush] Med 09/06/18 08:48 Active 10 ml FLUSH ASDIRECTED PRN Sodium Chloride 0.9% [Saline Flush] Med 09/06/18 08:48 Active 2.5 ml FLUSH ASDIRECTED PRN Saline Lock Insert [OM.PC] Stat Oth 09/06/18 08:47 Ordered Resuscitation Status Routine Resus Stat 09/06/18 12:45 Ordered Medication Orders Acetaminophen (Tylenol) 650 mg PO Q4H PRN PRN Reason: Pain (mild 1-3) Insulin Aspart (Novolog) 0 unit SUBCUT TIDAC DUNIA; Protocol Last Admin: 09/06/18 14:47 Dose: 6 units Insulin Glargine (Lantus Solostar) 12 units SUBCUT BEDTIME DUNIA Sodium Chloride (Saline Flush) 10 ml FLUSH ASDIRECTED PRN PRN Reason: Keep Vein Open Last Admin: 09/06/18 09:17 Dose: 10 ml Sodium Chloride (Saline Flush) 2.5 ml FLUSH ASDIRECTED PRN PRN Reason: Keep Vein Open Last Admin: 09/06/18 10:41 Dose: 2.5 ml
[2018-09-06] MEDS: Insulin Aspart 100 Units/ML 3 ML Pen SUBCUT SCH ×2 (14:47→18:16)
[2018-09-06] MEDS: Acetaminophen 325 MG Tab PO PRN (18:39)
[2018-09-06] MEDS ORDERED: Insulin Glargine,Human Rec. Analog 100 Units/ML 3 ML Pen SUBCUT SCH (21:00)
[2018-09-06] MEDS ORDERED: traMADol 50 MG Tab PO ONE (21:20)
[2018-09-07] MEDS: Acetaminophen 325 MG Tab PO PRN ×4 (03:51→21:22)
[2018-09-07] MEDS: Insulin Aspart 100 Units/ML 3 ML Pen SUBCUT SCH ×3 (07:49→18:22)
[2018-09-07] MEDS ORDERED: Gadobenate Dimeglumine 529 MG/ML 20 ML SDV IVPUSH STA (09:49)
--- NOTE | 2018-09-07 11:29 | PCM.PN ---
<Joanne Lezama M - Last Filed: 09/07/18 11:18> - General Info Date of Service: 09/07/18 Admission Dx/Problem (Free Text): Admission Diagnosis/Problem Admission Diagnosis/Problem Syncope Subjective Update: Feeling ok this morning, up with PT. and felt like she was going to pass out with examining vertebral artery. No further evaluation. No chest pain or SOB. - Review of Systems HEENT: Denies: Headaches, Visual Changes Pulmonary: Reports: No Symptoms. Denies: Shortness of Breath Cardiovascular: Reports: No Symptoms. Denies: Chest Pain Gastrointestinal: Reports: No Symptoms. Denies: Abdominal Pain, Nausea, Vomiting Genitourinary: Reports: No Symptoms Musculoskeletal: Reports: No Symptoms Skin: Reports: No Symptoms Neurological: Reports: Dizziness Psychiatric: Reports: No Symptoms - Patient Data Vitals - Most Recent: Last Vital Signs Temp 96.8 F 09/07/18 07:52 Pulse 71 09/07/18 07:52 Resp 17 09/07/18 07:52 BP 141/71 H 09/07/18 07:52 Pulse Ox 96 09/07/18 07:52 Orthostatic Blood Pressure [ 146/73 Standing] Orthostatic Blood Pressure [ 143/74 Sitting] Orthostatic Blood Pressure [ 145/73 Supine] Weight - Most Recent: 122.47 kg I&O - Last 24 Hours: Intake & Output 09/06/18 09/07/18 09/07/18 22:59 06:59 14:59 Intake Total 650 1700 Output Total 500 1900 Balance 150 -200 Lab Results Last 24 Hours: Laboratory Results - last 24 hr 09/06/18 09/06/18 09/06/18 Range/Units 12:20 13:33 17:29 POC Glucose 259 H 277 H (60-110) mg/dL Urine Color YELLOW Urine Appearance SLT CLOUDY Urine pH 6.0 (5.0-8.0) Ur Specific [place] 1.020 (1.001-1.035) Urine Protein 30 H (NEGATIVE) mg/dL Urine Glucose (UA) >=1000 (NEGATIVE) mg/dL Urine Ketones NEGATIVE (NEGATIVE) mg/dL Urine Occult Blood TRACE-INTACT H (NEGATIVE) Urine Nitrite NEGATIVE (NEGATIVE) Urine Bilirubin NEGATIVE (NEGATIVE) Urine Urobilinogen 0.2 (<2.0) EU/dL Ur Leukocyte Esterase NEGATIVE (NEGATIVE) Urine RBC 0-1 (0-2/HPF) Urine WBC 0-1 (0-5/HPF) Ur Epithelial Cells OCCASIONAL (NONE-FEW) Urine Bacteria RARE (NEGATIVE) Urine Yeast MODERATE 09/06/18 09/07/18 Range/Units 21:16 06:32 POC Glucose 213 H 220 H (60-110) mg/dL Urine Color Urine Appearance Urine pH (5.0-8.0) Ur Specific [place] (1.001-1.035) Urine Protein (NEGATIVE) mg/dL Urine Glucose (UA) (NEGATIVE) mg/dL Urine Ketones (NEGATIVE) mg/dL Urine Occult Blood (NEGATIVE) Urine Nitrite (NEGATIVE) Urine Bilirubin (NEGATIVE) Urine Urobilinogen (<2.0) EU/dL Ur Leukocyte Esterase (NEGATIVE) Urine RBC (0-2/HPF) Urine WBC (0-5/HPF) Ur Epithelial Cells (NONE-FEW) Urine Bacteria (NEGATIVE) Urine Yeast Med Orders - Current: Current Medications Acetaminophen (Tylenol) 650 mg PO Q4H PRN PRN Reason: Pain (mild 1-3) Last Admin: 09/07/18 09:14 Dose: 650 mg Insulin Aspart (Novolog) 0 unit SUBCUT [facility]AC [facility]; Protocol Last Admin: 09/07/18 07:49 Dose: 4 units Insulin Glargine (Lantus Solostar) 12 units SUBCUT BEDTIME DUNIA Last Admin: 09/06/18 21:34 Dose: 12 units Sodium Chloride (Saline Flush) 10 ml FLUSH ASDIRECTED PRN PRN Reason: Keep Vein Open Last Admin: 09/06/18 09:17 Dose: 10 ml Sodium Chloride (Saline Flush) 2.5 ml FLUSH ASDIRECTED PRN PRN Reason: Keep Vein Open Last Admin: 09/06/18 10:41 Dose: 2.5 ml Discontinued Medications Acetaminophen (Tylenol Extra Strength) 1,000 mg PO ONETIME ONE Stop: 09/06/18 10:14 Last Admin: 09/06/18 10:41 Dose: 1,000 mg Gadobenate Dimeglumine (Multihance) 20 ml IVPUSH ONETIME STA Stop: 09/07/18 09:50 Sodium Chloride (Normal Saline) 1,000 mls @ 999 mls/hr IV STAT ONE Stop: 09/06/18 09:48 Last Admin: 09/06/18 09:12 Dose: 999 mls/hr Tramadol HCl (Ultram) 50 mg PO ONETIME ONE Stop: 09/06/18 21:21 Last Admin: 09/06/18 21:32 Dose: 50 mg - Exam General: Alert, Oriented, Cooperative, Other (mild dizziness) Neck: Supple Lungs: Clear to Auscultation, Normal Respiratory Effort Cardiovascular: Regular Rate, Regular Rhythm GI/Abdominal Exam: Normal Bowel Sounds, Soft, Non-Tender Extremities: Normal Inspection, Normal Range of Motion, Non-Tender, No Pedal Edema Neurological: No New Focal Deficit Psy/Mental Status: Alert, Normal Affect, Normal Mood - Problem List & Annotations (1) Vertigo SNOMED Code(s): 679752592 Code(s): R42 - DIZZINESS AND GIDDINESS Status: Acute Current Visit: Yes (2) Syncope SNOMED Code(s): 976855024 Code(s): R55 - SYNCOPE AND COLLAPSE Status: Acute Current Visit: Yes Qualifiers: Syncope type: unspecified Qualified Code(s): R55 - Syncope and collapse (3) Sarcoidosis of lung SNOMED Code(s): 51845893 Code(s): D86.0 - SARCOIDOSIS OF LUNG Status: Chronic Current Visit: Yes (4) DM type 2 (diabetes mellitus, type 2) SNOMED Code(s): 68752764 Code(s): E11.9 - TYPE 2 DIABETES MELLITUS WITHOUT COMPLICATIONS Status: Chronic Current Visit: Yes Qualifiers: Diabetes mellitus senior care insulin use: without oysterman use Diabetes mellitus complication status: with hyperglycemia Qualified Code(s): E11.65 - Type 2 diabetes mellitus with hyperglycemia (5) Non-compliance with treatment SNOMED Code(s): 9150595 Code(s): Z91.19 - PATIENT'S NONCOMPLIANCE W OTH MEDICAL TREATMENT AND REGIMEN Status: Chronic Current Visit: Yes (6) Obesity SNOMED Code(s): 193985165, 158609096 Code(s): E66.9 - OBESITY, UNSPECIFIED Status: Chronic Current Visit: Yes (7) Pulmonary nodule SNOMED Code(s): 968721985 Code(s): R91.1 - SOLITARY PULMONARY NODULE Status: Chronic Current Visit : No - Problem List Review Problem List Initiated/Reviewed/Updated: Yes - My Orders Last 24 Hours: My Active Orders 09/06/18 11:17 Orthostatic Vital Signs [RC] ASDIRECTED 09/06/18 12:45 Intake and Output [RC] QSHIFT Oxygen Therapy [RC] PRN Up With Assistance [RC] ASDIRECTED Up to Chair [RC] ASDIRECTED VTE/DVT Education [RC] PER UNIT ROUTINE Vital Signs [RC] Q4H Acetaminophen [Tylenol] 650 mg PO Q4H PRN Resuscitation Status Routine 09/06/18 12:47 Blood Glucose Check, Bedside [RC] TIDAC Insulin Aspart [NovoLOG] See Protocol SUBCUT TIDAC 09/06/18 13:33 Consult to DM [Consult to Diabetic Nurse Specialist] [CONS] Routine Consult to Physical Therapy [PT Evaluation and Treatment] [CONS] Routine 09/06/18 21:00 Insulin Glarg,Human.Rec.Analog [LantUS Solostar] 12 units SUBCUT BEDTIME 09/06/18 Lunch [employer] Diet [DIET] 09/07/18 09:16 Ang Head wo Cont [MR] Urgent 09/07/18 09:17 Ang Neck w wo Cont [MR] Urgent - Plan Plan:: This 47 year old female admitted with syncope and noted to be non complaint with DM Type 2 treatment. 1. Vertigo: Consult PT for vestibular evaluation and treatment. PT saw this morning, when testing vertebral arteries, she nearly passed out. Will order MRA of head and neck. Orthostatic BPs WNL. 2. DM Type 2: Discussed with her the concerns of not treating BP and the consequences of this. She verbally understood. She agreed with Novolog pre meals and Lantus tonight. Will Consult DM educator. 3. HTN: Stabilized 120-140/80s. Will monitor, may consider starting KATHY if they remain elevated and findings on MRA. Lipid panel in am. VTE prophylaxis: SCDs Dispo: 1-2 days <Michael Morris - Last Filed: 09/07/18 13:15> - General Info Admission Dx/Problem (Free Text): I have seen and examined to patient independently of Joanne Lezama CNP. I have discussed the case for care of this patient with her. I have reviewed and approve of the plan of care as outlined by ANTONIO. Please see orders. - Patient Data Vitals - Most Recent: Last Vital Signs Temp 36.4 C 09/07/18 12:00 Pulse 70 09/07/18 12:00 Resp 18 09/07/18 12:00 BP 151/74 H 09/07/18 12:00 Pulse Ox 96 09/07/18 12:00 Orthostatic Blood Pressure [ 146/73 Standing] Orthostatic Blood Pressure [ 143/74 Sitting] Orthostatic Blood Pressure [ 145/73 Supine] I&O - Last 24 Hours: Intake & Output 09/06/18 09/07/18 09/07/18 22:59 06:59 14:59 Intake Total 650 1700 Output Total 500 1900 Balance 150 -200 Lab Results Last 24 Hours: Laboratory Results - last 24 hr 09/06/18 09/06/18 09/06/18 Range/Units 12:20 13:33 17:29 POC Glucose 259 H 277 H (60-110) mg/dL Urine RBC 0-1 (0-2/HPF) Urine WBC 0-1 (0-5/HPF) Ur Epithelial Cells OCCASIONAL (NONE-FEW) Urine Bacteria RARE (NEGATIVE) Urine Yeast MODERATE 09/06/18 09/07/18 09/07/18 Range/Units 21:16 06:32 11:43 POC Glucose 213 H 220 H 205 H (60-110) mg/dL Urine RBC (0-2/HPF) Urine WBC (0-5/HPF) Ur Epithelial Cells (NONE-FEW) Urine Bacteria (NEGATIVE) Urine Yeast Med Orders - Current: Current Medications Acetaminophen (Tylenol) 650 mg PO Q4H PRN PRN Reason: Pain (mild 1-3) Last Admin: 09/07/18 09:14 Dose: 650 mg Insulin Aspart (Novolog) 0 unit SUBCUT [facility]; Protocol Last Admin: 09/07/18 13:01 Dose: 4 units Insulin Glargine (Lantus Solostar) 12 units SUBCUT BEDTIME [facility] Last Admin: 09/06/18 21:34 Dose: 12 units Sodium Chloride (Saline Flush) 10 ml FLUSH ASDIRECTED PRN PRN Reason: Keep Vein Open Last Admin: 09/06/18 09:17 Dose: 10 ml Sodium Chloride (Saline Flush) 2.5 ml FLUSH ASDIRECTED PRN PRN Reason: Keep Vein Open Last Admin: 09/06/18 10:41 Dose: 2.5 ml Discontinued Medications Acetaminophen (Tylenol Extra Strength) 1,000 mg PO ONETIME ONE Stop: 09/06/18 10:14 Last Admin: 09/06/18 10:41 Dose: 1,000 mg Gadobenate Dimeglumine (Multihance) 20 ml IVPUSH ONETIME STA Stop: 09/07/18 09:50 Sodium Chloride (Normal Saline) 1,000 mls @ 999 mls/hr IV STAT ONE Stop: 09/06/18 09:48 Last Admin: 09/06/18 09:12 Dose: 999 mls/hr Tramadol HCl (Ultram) 50 mg PO ONETIME ONE Stop: 09/06/18 21:21 Last Admin: 09/06/18 21:32 Dose: 50 mg
--- NOTE | 2018-09-07 15:48 | MR ---
EXAMINATION: MRA head without contrast, MRA neck with and without contrast HISTORY: Syncope COMPARISON: CT dated 09/06/2018 TECHNIQUE: Axial [id number] imaging obtained through the neck with map reconstructions. Coronal pre and postcontrast imaging obtained of the neck with metal reconstructions. A total of 20 mL MultiHance was administered. FINDINGS: MRA neck: There is a normal three-vessel origin on the aortic arch. The common carotid arteries appear normal. The proximal internal carotid arteries are unremarkable. There is high-grade stenosis of the supraclinoid segment of the left ICA, also confirmed on the postcontrast imaging of the neck. The right internal carotid artery appears normal. The right vertebral artery is dominant. The left vertebral artery is diminutive and the origin is not well imaged. The basilar artery is normal. There is a origin of the right posterior cerebral artery. The left posterior cerebral artery appears normal. The middle and anterior cerebral arteries are otherwise unremarkable. Anterior communicating artery is normal. No aneurysm identified. IMPRESSION: 1. High-grade focal stenosis within the supraclinoid left ICA. 2. The right vertebral artery is dominant with a diminutive left vertebral artery. 3. origin right posterior cerebral artery.
--- NOTE | 2018-09-07 16:55 | PCM.SN ---
<Joanne Lezama M - Last Filed: 09/07/18 16:51> - Free Text/Narrative Note: MRA returned with high grade focal stenosis within the supraclinoid left ICA. I spoke with Dr Espinosa who directed me to Hardeep Talavera for further recommendations. I was able to speak with Dr Harris, Endovascular surgeon. He recommended medical management at this time versus invasive treatment. He felt the syncopal episode may be completely unrelated. He recommended blood pressure control, cholesterol control, and blood sugar control. He recommended adding ASA daily as well. Myself and Dr Morris spoke with patient and family regarding findings and discussion with Dr Harris. They are in agreement. We highly stressed compliance with medication regimen to reduce the risk of CVA in the future. Will start ASA , statin, and Lisinopril tonight. Increase Lantus. Will order fasting lipid panel for in the morning as well as c peptid. All questions and concerns addressed with family. <Michael Morris M - Last Filed: 09/07/18 17:11> - Free Text/Narrative Note: I have seen and examined to patient independently of Joanne Lezama CNP. I have discussed the case for care of this patient with her. I have reviewed and approve of the plan of care as outlined by ANTONIO. Please see orders.
[2018-09-07] MEDS: Aspirin 81 MG Tab.Chew PO SCH (17:40)
[2018-09-07] MEDS: Lisinopril 5 MG Tab PO SCH (17:41)
[2018-09-07] MEDS ORDERED: Insulin Glargine,Human Rec. Analog 100 Units/ML 3 ML Pen SUBCUT SCH (21:00)
[2018-09-07] MEDS ORDERED: atorvaSTATin 40 MG Tab PO SCH (21:00)
[2018-09-08 06:14] LABS: CHLORIDE,CL 103 mmol/L (98-107); SODIUM,NA 139 mmol/L (136-145)
[2018-09-08 08:12] VITALS: BP 139/86
[2018-09-08] MEDS: Insulin Aspart 100 Units/ML 3 ML Pen SUBCUT SCH (08:21)
[2018-09-08] MEDS: Aspirin 81 MG Tab.Chew PO SCH (08:24)
[2018-09-08] MEDS: Lisinopril 5 MG Tab PO SCH (08:24)
[2018-09-08] MEDS: Acetaminophen 325 MG Tab PO PRN (08:25)
[2018-09-08] MEDS ORDERED: Meclizine 25 MG Tab PO ONE (09:36)
--- NOTE | 2018-09-08 09:52 | PCM.DCSUM1 ---
<Joanne Lezama M - Last Filed: 09/08/18 10:49> Discharge Summary - Hospital Course Brief History: This 47 year old female with pmh of DM Type 2, non complaint with medication regimen, and sarcoidosis presented to the ED via EMS after she had a syncopal episode at work. She reports she has been feeling well prior to today and even up to event. She denies any recent URI symptoms. 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 She felt off and dizzy and was in the process of reaching around for her water bottle and then woke up with people around her and she was on the floor. She did hit her head, has a mild head ache and neck strain, she thinks from the C collar placed by EMS. She also has a large bump on the left side of her head which is tender. She denies blurred vision or double vision. She denies chest pain or SOB. She denies urinary concerns. No diarrhea or constipation and no abdominal pain. She reports she stopped taking her metformin 2 1/2 months ago as well as insulin, she was not seeing improvement with her blood sugars, so she figured Ill just stop all these medications. She denies recreational drug use, rare alcohol use, and no tobacco use, but is exposed to second hand smoke. In the ED Labwork WNL. Glucose 368 and A1c 11.5. Troponin negative. EKG SR with no acute ST segment changes, LVH noted. Head CT negative. CT cervical spine negative for acute cervical spine abnormalities. It did reveal vague 1 cm pleural based nodule in the R apex. Possible intralobular septal thickening, may suggest pulmonary edema, multiple non specific borderline superior mediastinal lymph nodes. She was given Tylenol for a headache. Admitted observation for syncope. Diagnosis: Stroke: No - Discharge Data Discharge Date: 09/08/18 Discharge Disposition: Home, Self-Care 01 Condition: Good - Discharge Diagnosis/Problem(s) (1) Vertigo SNOMED Code(s): 812923792 ICD Code: R42 - DIZZINESS AND GIDDINESS Status: Acute (2) Syncope SNOMED Code(s): 921346822 ICD Code: R55 - SYNCOPE AND COLLAPSE Status: Acute Qualifiers: Syncope type: unspecified Qualified Code(s): R55 - Syncope and collapse (3) Sarcoidosis of lung SNOMED Code(s): 53738921 ICD Code: D86.0 - SARCOIDOSIS OF LUNG Status: Chronic (4) DM type 2 (diabetes mellitus, type 2) SNOMED Code(s): 86293101 ICD Code: E11.9 - TYPE 2 DIABETES MELLITUS WITHOUT COMPLICATIONS Status: Chronic Qualifiers: Diabetes mellitus mcfp insulin use: without mcfp use Diabetes mellitus complication status: with hyperglycemia Qualified Code(s): E11.65 - Type 2 diabetes mellitus with hyperglycemia (5) Non-compliance with treatment SNOMED Code(s): 4601342 ICD Code: Z91.19 - PATIENT'S NONCOMPLIANCE W OTH MEDICAL TREATMENT AND REGIMEN Status: Chronic (6) Obesity SNOMED Code(s): 801691704, 726659657 ICD Code: E66.9 - OBESITY, UNSPECIFIED Status: Chronic (7) Pulmonary nodule SNOMED Code(s): 716718562 ICD Code: R91.1 - SOLITARY PULMONARY NODULE Status: Chronic (8) Internal carotid artery stenosis SNOMED Code(s): 992518253 ICD Code: I65.29 - OCCLUSION AND STENOSIS OF UNSPECIFIED CAROTID ARTERY Status: Acute Qualifiers: Laterality: left Qualified Code(s): I65.22 - Occlusion and stenosis of left carotid artery - Patient Summary/Data Consults: Consultations 09/06/18 13:33 Consult to DM [Consult to Diabetic Nurse Specialist] [CONS] Routine Consult to Physical Therapy [PT Evaluation and Treatment] [CONS] Routine - Patient Instructions Diet: Heart Healthy Diet, Diabetic Diet Activity: As Tolerated, Rest and Relax Today Showering/Bathing: May Shower Notify Provider of: Fever, Increased Pain, Swelling and Redness, Drainage, Nausea and/or Vomiting Other/Special Instructions: Monitor Blood sugars fasting in the morning, prior to each meal and at bedtime. Monitor BP every few days, keep log for primary care provider. - Discharge Plan *PRESCRIPTION DRUG MONITORING PROGRAM REVIEWED*: Not Applicable *COPY OF PRESCRIPTION DRUG MONITORING REPORT IN PATIENT YIN: Not Applicable Prescriptions/Med Rec: atorvaSTATin [Lipitor] 80 mg PO BEDTIME #60 tablet Insulin Aspart [NovoLOG] See Protocol SUBCUT TIDAC #1 box Insulin Degludec [Tresiba] 40 unit SQ BEDTIME #1 box Lisinopril [Prinivil] 5 mg PO DAILY #30 tablet metFORMIN HCl [Metformin HCl] 1,000 mg PO BID #60 tablet Pen Needle, Diabetic [Pen Needle] 1 each QID #1 box Home Medications: Home Meds Aspirin 81 mg PO DAILY tab.chew 09/08/18 [Rx] Insulin Aspart [NovoLOG] See Protocol SUBCUT TIDAC #1 box 09/08/18 [Rx] Insulin Degludec [Tresiba] 40 unit SQ BEDTIME #1 box 09/08/18 [Rx] Lisinopril [Prinivil] 5 mg PO DAILY #30 tablet 09/08/18 [Rx] Pen Needle, Diabetic [Pen Needle] 1 each QID #1 box 09/08/18 [Rx] atorvaSTATin [Lipitor] 80 mg PO BEDTIME #60 tablet 09/08/18 [Rx] metFORMIN HCl [Metformin HCl] 1,000 mg PO BID #60 tablet 09/08/18 [Rx] Oxygen Therapy Mode: Room Air Patient Handouts: Insulin Aspart injection, Coping With Diabetes, Near-Syncope , [id number], Type 2 Diabetes Mellitus, Self Care, Adult, [id number], Atorvastatin tablets, Lisinopril tablets, Metformin tablets, Insulin Degludec injection Referrals: Keiry Espinosa MD [Physician] - 11/23/18 3:00 pm (You have been placed on a cancellation list. If something comes up earlier, they will call you for a new appointment. ) Rachel Koch MD [Physician] - 09/19/18 10:00 am - Discharge Summary/Plan Comment DC Time >30 min.: No Discharge Summary/Plan Comment: Admitting Diagnoses: Syncope Discharge Diagnoses: Left ICA stenosis, high grade Vertigo HTN Dyslipidemia Other PMH: DM Type 2, A1c 11.5 Mehnaz was admitted secondary to syncopal episode at home. She had no lateralizing deficits or TIA like symptoms. She initially was being evaluated by PT for BPPV. She had another near syncopal event with PT when testing vertebral arteries. MRA of head and neck obtained secondary to this. This revealed high grade stenosis to supraclinoid left ICA. I initially spoke with Dr Espinosa regarding these findings and she directed me to [facility] in [place] for recommendations. I spoke with Dr Harris, Endovascular surgery. He recommended medical management as invasive therapy currently not recommended. He felt her syncope is likely unrelated. Telemetry has not shown any arrhythmia. She was started on statin therapy, Atorvastatin 80 mg, along with ASA and Lisinopril 5 mg. She will be continued on Tresiba at bedtime and Fiasp with meals. She will also be restarted on Metformin 1,000 mg daily. We discussed at length her new diagnoses and the extreme importance of compliance with diet and medications to reduce the risk of CVA. She was educated on side effects of new medications, including myalgias with high dose statins. She was told to call PCP if these should arise. She was also educated on signs of a stroke and educated if she or family notice these she should seek medical attention immediately. She and her verbalized understanding. We also discussed lifestyle change with diet and exercise, in which she says things will definitely be changing. As for vertigo, I will give her outpatient script for PT evaluation and treatment for vestibular assessment if she continues to have dizziness. Trial some Meclizine as well. She will be discharged home today. She is to follow up with Dr Espinosa, neurology, PCP, Dr Koch and Diabetic management. She is to return to ED or clinic if concerns should arise. - General Info Date of Service: 09/08/18 Admission Dx/Problem (Free Text: Syncope Subjective Update: Doing well this morning, mild to faint dizziness but otherwise is good. No chest pain or SOB. No focal neurologic symptoms. No visual concerns. Functional Status: Reports: Pain Controlled, Tolerating Diet, Ambulating, Urinating - Review of Systems General: Reports: No Symptoms. Denies: Fever, Weakness, Fatigue HEENT: Denies: Sinus Congestion, Sore Throat, Visual Changes Pulmonary: Reports: No Symptoms. Denies: Shortness of Breath, Cough, Sputum Cardiovascular: Reports: No Symptoms. Denies: Chest Pain, Palpitations, Edema Gastrointestinal: Reports: No Symptoms. Denies: Abdominal Pain, Nausea, Vomiting Genitourinary: Reports: No Symptoms Musculoskeletal: Reports: No Symptoms Skin: Reports: No Symptoms Neurological: Reports: Dizziness (mild). Denies: Numbness, Paresthesia, Trouble Speaking, Difficulty Walking, Change in Speech Psychiatric: Reports: No Symptoms - Patient Data Vitals - Most Recent: Last Vital Signs Temp 96.7 F 09/08/18 08:25 Pulse 74 09/08/18 08:00 Resp 18 09/08/18 08:00 BP 139/86 09/08/18 08:24 Pulse Ox 95 09/08/18 08:00 Orthostatic Blood Pressure [ 146/73 Standing] Orthostatic Blood Pressure [ 143/74 Sitting] Orthostatic Blood Pressure [ 145/73 Supine] Weight - Most Recent: 122.47 kg I&O - Last 24 hours: Intake & Output 09/07/18 09/08/18 09/08/18 22:59 06:59 14:59 Intake Total 890 740 Output Total 1900 4070 Balance -1010 -1110 Lab Results - Last 24 hrs: Laboratory Results - last 24 hr 09/07/18 09/07/18 09/07/18 Range/Units 11:43 16:35 21:15 WBC (4.0-11.0) K/uL RBC (4.30-5.90) M/uL Hgb (12.0-16.0) g/dL Hct (36.0-46.0) % MCV (80.0-98.0) fL MCH (27.0-32.0) pg MCHC (31.0-37.0) g/dL RDW Std Deviation (28.0-62.0) fl RDW Coeff of Speedy (11.0-15.0) % Plt Count (150-400) K/uL MPV (7.40-12.00) fL Neut % (Auto) (48.0-80.0) % Lymph % (Auto) (16.0-40.0) % [place] % (Auto) (0.0-15.0) % Eos % (Auto) (0.0-7.0) % Baso % (Auto) (0.0-1.5) % Neut # (Auto) (1.4-5.7) K/uL Lymph # (Auto) (0.6-2.4) K/uL [place] # (Auto) (0.0-0.8) K/uL Eos # (Auto) (0.0-0.7) K/uL Baso # (Auto) (0.0-0.1) K/uL Nucleated RBC % /100WBC Nucleated RBCs # K/uL Sodium (136-145) mmol/L Potassium (3.5-5.1) mmol/L Chloride (98-107) mmol/L Carbon Dioxide (21.0-32.0) mmol/L BUN (7.0-18.0) mg/dL Creatinine (0.6-1.0) mg/dL Est Cr Clr Drug Dosing mL/min Estimated GFR (MDRD) ml/min Glucose (74-106) mg/dL POC Glucose 205 H 218 H 199 H (60-110) mg/dL Calcium (8.5-10.1) mg/dL Magnesium (1.8-2.4) mg/dL Total Bilirubin (0.2-1.0) mg/dL AST (15-37) IU/L ALT (14-63) IU/L Alkaline Phosphatase (46-116) U/L Total Protein (6.4-8.2) g/dL Albumin (3.4-5.0) g/dL Globulin (2.6-4.0) g/dL Albumin/Globulin Ratio (0.9-1.6) Triglycerides (0-200) mg/dL Cholesterol (50-200) mg/dL LDL Cholesterol, Calc (60-180) mg/dL VLDL Cholesterol (5-55) mg/dL HDL Cholesterol (40-60) mg/dL Cholesterol/HDL Ratio (3.3-6.0) 09/08/18 09/08/18 09/08/18 Range/Units 05:08 05:08 06:24 WBC 3.76 L (4.0-11.0) K/uL RBC 4.65 (4.30-5.90) M/uL Hgb 12.7 (12.0-16.0) g/dL Hct 38.9 (36.0-46.0) % MCV 83.7 (80.0-98.0) fL MCH 27.3 (27.0-32.0) pg MCHC 32.6 (31.0-37.0) g/dL RDW Std Deviation 38.5 (28.0-62.0) fl RDW Coeff of Speedy 13 (11.0-15.0) % Plt Count 128 L (150-400) K/uL MPV 11.10 (7.40-12.00) fL Neut % (Auto) 64.9 (48.0-80.0) % Lymph % (Auto) 20.7 (16.0-40.0) % [place] % (Auto) 12.5 (0.0-15.0) % Eos % (Auto) 1.6 (0.0-7.0) % Baso % (Auto) 0.3 (0.0-1.5) % Neut # (Auto) 2.4 (1.4-5.7) K/uL Lymph # (Auto) 0.8 (0.6-2.4) K/uL [place] # (Auto) 0.5 (0.0-0.8) K/uL Eos # (Auto) 0.1 (0.0-0.7) K/uL Baso # (Auto) 0.0 (0.0-0.1) K/uL Nucleated RBC % 0.0 /100WBC Nucleated RBCs # 0 K/uL Sodium 139 (136-145) mmol/L Potassium 3.9 (3.5-5.1) mmol/L Chloride 103 (98-107) mmol/L Carbon Dioxide 30.0 (21.0-32.0) mmol/L BUN 13 (7.0-18.0) mg/dL Creatinine 0.7 (0.6-1.0) mg/dL Est Cr Clr Drug Dosing 102.38 mL/min Estimated GFR (MDRD) > 60.0 ml/min Glucose 194 H (74-106) mg/dL POC Glucose 200 H (60-110) mg/dL Calcium 8.9 (8.5-10.1) mg/dL Magnesium 1.8 (1.8-2.4) mg/dL Total Bilirubin 0.6 (0.2-1.0) mg/dL AST 21 (15-37) IU/L ALT 43 (14-63) IU/L Alkaline Phosphatase 73 (46-116) U/L Total Protein 6.7 (6.4-8.2) g/dL Albumin 3.3 L (3.4-5.0) g/dL Globulin 3.4 (2.6-4.0) g/dL Albumin/Globulin Ratio 1.0 (0.9-1.6) Triglycerides 199 (0-200) mg/dL Cholesterol 208 H (50-200) mg/dL LDL Cholesterol, Calc 134 (60-180) mg/dL VLDL Cholesterol 39 (5-55) mg/dL HDL Cholesterol 34 L (40-60) mg/dL Cholesterol/HDL Ratio 6.1 H (3.3-6.0) Med Orders - Current: Current Medications Acetaminophen (Tylenol) 650 mg PO Q4H PRN PRN Reason: Pain (mild 1-3) Last Admin: 09/08/18 08:25 Dose: 650 mg Aspirin (Aspirin) 81 mg PO DAILY [facility] Last Admin: 09/08/18 08:24 Dose: 81 mg Atorvastatin Calcium (Lipitor) 80 mg PO BEDTIME [facility] Last Admin: 09/07/18 21:22 Dose: 80 mg Insulin Aspart (Novolog) 0 unit SUBCUT TIDAC [facility]; Protocol Last Admin: 09/08/18 08:21 Dose: 4 units Insulin Glargine (Lantus Solostar) 20 units SUBCUT BEDTIME [facility] Last Admin: 09/07/18 21:23 Dose: 20 units Lisinopril (Prinivil) 5 mg PO DAILY [facility] Last Admin: 09/08/18 08:24 Dose: 5 mg Sodium Chloride (Saline Flush) 10 ml FLUSH ASDIRECTED PRN PRN Reason: Keep Vein Open Last Admin: 09/06/18 09:17 Dose: 10 ml Sodium Chloride (Saline Flush) 2.5 ml FLUSH ASDIRECTED PRN PRN Reason: Keep Vein Open Last Admin: 09/06/18 10:41 Dose: 2.5 ml Discontinued Medications Acetaminophen (Tylenol Extra Strength) 1,000 mg PO ONETIME ONE Stop: 09/06/18 10:14 Last Admin: 09/06/18 10:41 Dose: 1,000 mg Gadobenate Dimeglumine (Multihance) 20 ml IVPUSH ONETIME STA Stop: 09/07/18 09:50 Last Admin: 09/07/18 19:30 Dose: Not Given Sodium Chloride (Normal Saline) 1,000 mls @ 999 mls/hr IV STAT ONE Stop: 09/06/18 09:48 Last Admin: 09/06/18 09:12 Dose: 999 mls/hr Insulin Glargine (Lantus Solostar) 12 units SUBCUT BEDTIME [facility] Last Admin: 09/06/18 21:34 Dose: 12 units Meclizine HCl (Antivert) 25 mg PO ONETIME ONE Stop: 09/08/18 09:37 Last Admin: 09/08/18 09:47 Dose: 25 mg Tramadol HCl (Ultram) 50 mg PO ONETIME ONE Stop: 09/06/18 21:21 Last Admin: 09/06/18 21:32 Dose: 50 mg - Exam General: Reports: Alert, Oriented, Cooperative, No Acute Distress Lungs: Reports: Clear to Auscultation, Normal Respiratory Effort Cardiovascular: Reports: Regular Rate, Regular Rhythm GI/Abdominal Exam: Normal Bowel Sounds, Soft, Non-Tender Extremities: Normal Inspection, Normal Range of Motion, Non-Tender, No Pedal Edema Neurological: Reports: No New Focal Deficit Psy/Mental Status: Reports: Alert, Normal Affect, Normal Mood <Michael Morris - Last Filed: 09/08/18 13:07> Discharge Summary - Hospital Course HPI Initial Comments: I have seen and examined to patient independently of Joanne Lezama CNP. I have discussed the case for care of this patient with her. I have reviewed and approve of the plan of care as outlined by ANTONIO. Please see orders. Strongly counselled on maintaining tight blood glucose control. - Patient Summary/Data Consults: Consultations 09/06/18 13:33 Consult to DM [Consult to Diabetic Nurse Specialist] [CONS] Routine Consult to Physical Therapy [PT Evaluation and Treatment] [CONS] Routine - Patient Data Vitals - Most Recent: Last Vital Signs Temp 35.9 C 09/08/18 08:25 Pulse 74 09/08/18 08:00 Resp 18 09/08/18 08:00 BP 139/86 09/08/18 08:24 Pulse Ox 95 09/08/18 08:00 Orthostatic Blood Pressure [ 146/73 Standing] Orthostatic Blood Pressure [ 143/74 Sitting] Orthostatic Blood Pressure [ 145/73 Supine] I&O - Last 24 hours: Intake & Output 09/07/18 09/08/18 09/08/18 22:59 06:59 14:59 Intake Total 890 740 500 Output Total 1900 1850 900 Balance -1010 -1110 -400 Lab Results - Last 24 hrs: Laboratory Results - last 24 hr 09/07/18 09/07/18 09/08/18 Range/Units 16:35 21:15 05:08 WBC (4.0-11.0) K/uL RBC (4.30-5.90) M/uL Hgb (12.0-16.0) g/dL Hct (36.0-46.0) % MCV (80.0-98.0) fL MCH (27.0-32.0) pg MCHC (31.0-37.0) g/dL RDW Std Deviation (28.0-62.0) fl RDW Coeff of Speedy (11.0-15.0) % Plt Count (150-400) K/uL MPV (7.40-12.00) fL Neut % (Auto) (48.0-80.0) % Lymph % (Auto) (16.0-40.0) % [place] % (Auto) (0.0-15.0) % Eos % (Auto) (0.0-7.0) % Baso % (Auto) (0.0-1.5) % Neut # (Auto) (1.4-5.7) K/uL Lymph # (Auto) (0.6-2.4) K/uL [place] # (Auto) (0.0-0.8) K/uL Eos # (Auto) (0.0-0.7) K/uL Baso # (Auto) (0.0-0.1) K/uL Nucleated RBC % /100WBC Nucleated RBCs # K/uL Sodium 139 (136-145) mmol/L Potassium 3.9 (3.5-5.1) mmol/L Chloride 103 (98-107) mmol/L Carbon Dioxide 30.0 (21.0-32.0) mmol/L BUN 13 (7.0-18.0) mg/dL Creatinine 0.7 (0.6-1.0) mg/dL Est Cr Clr Drug Dosing 102.38 mL/min Estimated GFR (MDRD) > 60.0 ml/min Glucose 194 H (74-106) mg/dL POC Glucose 218 H 199 H (60-110) mg/dL Calcium 8.9 (8.5-10.1) mg/dL Magnesium 1.8 (1.8-2.4) mg/dL Total Bilirubin 0.6 (0.2-1.0) mg/dL AST 21 (15-37) IU/L ALT 43 (14-63) IU/L Alkaline Phosphatase 73 (46-116) U/L Total Protein 6.7 (6.4-8.2) g/dL Albumin 3.3 L (3.4-5.0) g/dL Globulin 3.4 (2.6-4.0) g/dL Albumin/Globulin Ratio 1.0 (0.9-1.6) Triglycerides 199 (0-200) mg/dL Cholesterol 208 H (50-200) mg/dL LDL Cholesterol, Calc 134 (60-180) mg/dL VLDL Cholesterol 39 (5-55) mg/dL HDL Cholesterol 34 L (40-60) mg/dL Cholesterol/HDL Ratio 6.1 H (3.3-6.0) 09/08/18 09/08/18 Range/Units 05:08 06:24 WBC 3.76 L (4.0-11.0) K/uL RBC 4.65 (4.30-5.90) M/uL Hgb 12.7 (12.0-16.0) g/dL Hct 38.9 (36.0-46.0) % MCV 83.7 (80.0-98.0) fL MCH 27.3 (27.0-32.0) pg MCHC 32.6 (31.0-37.0) g/dL RDW Std Deviation 38.5 (28.0-62.0) fl RDW Coeff of Speedy 13 (11.0-15.0) % Plt Count 128 L (150-400) K/uL MPV 11.10 (7.40-12.00) fL Neut % (Auto) 64.9 (48.0-80.0) % Lymph % (Auto) 20.7 (16.0-40.0) % [place] % (Auto) 12.5 (0.0-15.0) % Eos % (Auto) 1.6 (0.0-7.0) % Baso % (Auto) 0.3 (0.0-1.5) % Neut # (Auto) 2.4 (1.4-5.7) K/uL Lymph # (Auto) 0.8 (0.6-2.4) K/uL [place] # (Auto) 0.5 (0.0-0.8) K/uL Eos # (Auto) 0.1 (0.0-0.7) K/uL Baso # (Auto) 0.0 (0.0-0.1) K/uL Nucleated RBC % 0.0 /100WBC Nucleated RBCs # 0 K/uL Sodium (136-145) mmol/L Potassium (3.5-5.1) mmol/L Chloride (98-107) mmol/L Carbon Dioxide (21.0-32.0) mmol/L BUN (7.0-18.0) mg/dL Creatinine (0.6-1.0) mg/dL Est Cr Clr Drug Dosing mL/min Estimated GFR (MDRD) ml/min Glucose (74-106) mg/dL POC Glucose 200 H (60-110) mg/dL Calcium (8.5-10.1) mg/dL Magnesium (1.8-2.4) mg/dL Total Bilirubin (0.2-1.0) mg/dL AST (15-37) IU/L ALT (14-63) IU/L Alkaline Phosphatase (46-116) U/L Total Protein (6.4-8.2) g/dL Albumin (3.4-5.0) g/dL Globulin (2.6-4.0) g/dL Albumin/Globulin Ratio (0.9-1.6) Triglycerides (0-200) mg/dL Cholesterol (50-200) mg/dL LDL Cholesterol, Calc (60-180) mg/dL VLDL Cholesterol (5-55) mg/dL HDL Cholesterol (40-60) mg/dL Cholesterol/HDL Ratio (3.3-6.0) Med Orders - Current: Current Medications Discontinued Medications Acetaminophen (Tylenol Extra Strength) 1,000 mg PO ONETIME ONE Stop: 09/06/18 10:14 Last Admin: 09/06/18 10:41 Dose: 1,000 mg Acetaminophen (Tylenol) 650 mg PO Q4H PRN PRN Reason: Pain (mild 1-3) Last Admin: 09/08/18 08:25 Dose: 650 mg Aspirin (Aspirin) 81 mg PO DAILY [facility] Last Admin: 09/08/18 08:24 Dose: 81 mg Atorvastatin Calcium (Lipitor) 80 mg PO BEDTIME DUNIA Last Admin: 09/07/18 21:22 Dose: 80 mg Gadobenate Dimeglumine (Multihance) 20 ml IVPUSH ONETIME STA Stop: 09/07/18 09:50 Last Admin: 09/07/18 19:30 Dose: Not Given Sodium Chloride (Normal Saline) 1,000 mls @ 999 mls/hr IV STAT ONE Stop: 09/06/18 09:48 Last Admin: 09/06/18 09:12 Dose: 999 mls/hr Insulin Aspart (Novolog) 0 unit SUBCUT TIDAC [facility]; Protocol Last Admin: 09/08/18 08:21 Dose: 4 units Insulin Glargine (Lantus Solostar) 12 units SUBCUT BEDTIME [facility] Last Admin: 09/06/18 21:34 Dose: 12 units Insulin Glargine (Lantus Solostar) 20 units SUBCUT BEDTIME [facility] Last Admin: 09/07/18 21:23 Dose: 20 units Lisinopril (Prinivil) 5 mg PO DAILY [facility] Last Admin: 09/08/18 08:24 Dose: 5 mg Meclizine HCl (Antivert) 25 mg PO ONETIME ONE Stop: 09/08/18 09:37 Last Admin: 09/08/18 09:47 Dose: 25 mg Sodium Chloride (Saline Flush) 10 ml FLUSH ASDIRECTED PRN PRN Reason: Keep Vein Open Last Admin: 09/06/18 09:17 Dose: 10 ml Sodium Chloride (Saline Flush) 2.5 ml FLUSH ASDIRECTED PRN PRN Reason: Keep Vein Open Last Admin: 09/06/18 10:41 Dose: 2.5 ml Tramadol HCl (Ultram) 50 mg PO ONETIME ONE Stop: 09/06/18 21:21 Last Admin: 09/06/18 21:32 Dose: 50 mg
== END 2018-09-08 11:30 | disposition home or self-care (01) ==
LOC: MW.ED 08:29 → MW.MS 11:20
PROVIDERS: ADMIT Internal Medicine; ATTEND Internal Medicine
DX: R55 Syncope and collapse (principal); R42 Dizziness and giddiness; I65.22 Occlusion and stenosis of left carotid artery; I10 Essential (primary) hypertension; E11.65 Type 2 diabetes mellitus with hyperglycemia; E78.00 Pure hypercholesterolemia, unspecified; D86.0 Sarcoidosis of lung; J45.909 Unspecified asthma, uncomplicated; R91.1 Solitary pulmonary nodule; E66.9 Obesity, unspecified; Z68.41 Body mass index [BMI] 40.0-44.9, adult; Z91.19 Patient's noncompliance with other medical treatment and regimen; Z79.82 Long term (current) use of aspirin; Z79.4 Long term (current) use of insulin; Z79.899 Other long term (current) drug therapy
CPT/HCPCS: 36415; 70450; 70544; 70549; 71045; 72125; 80053; 80061; 81001; 82962; 83036; 83735; 84443; 84484; 84681; 85025; 93005; 96360; 97162; 99285; A9270; G0378; J1815; J7040; 99284

== ENCOUNTER 2018-09-20 10:08 | Emergency (ER) | payer BC ==
[2018-09-20] MEDS ORDERED: Sodium Chloride 0.9% 10 ML SDV IV PRN (10:12)
[2018-09-20] MEDS ORDERED: Sodium Chloride 0.9% 10 ML Syringe FLUSH PRN (10:12)
[2018-09-20] MEDS ORDERED: Labetalol 20 MG/4 ML Syringe IVPUSH ONE (10:12)
[2018-09-20] MEDS ORDERED: Sodium Chloride 0.9% 2.5 ML Syringe FLUSH PRN (10:12)
--- NOTE | 2018-09-20 10:12 | EDM.PDOC ---
ED HPI GENERAL MEDICAL PROBLEM - General Stated Complaint: WEAKNESS Time Seen by Provider: 09/20/18 10:10 Source of Information: Reports: Patient History Limitations: Reports: No Limitations - History of Present Illness INITIAL COMMENTS - FREE TEXT/NARRATIVE: History of present illness: []Patient arrives with history of dizziness that began at 7:30 this morning while driving into work and then noted left arm weakness and numbness at 9 AM. A stroke code was called patient's glucose was 104 she was noted to be hypertensive at 200/100. Patient had a syncopal episode and was worked up 2 weeks ago and worked up here here with an MRI/MRA. No cause was found. Review of systems: As per history of present illness and below otherwise all systems reviewed and negative. Past medical history: As per history of present illness and as reviewed below otherwise noncontributory. Surgical history: As per history of present illness and as reviewed below otherwise noncontributory. Social history: No reported history of drug or alcohol abuse. Family history: As per history of present illness and as reviewed below otherwise noncontributory. Physical exam: General: Well developed, well nourished in NAD HEENT: Atraumatic, normocephalic, pupils reactive, negative for conjunctival pallor or scleral icterus, mucous membranes moist, throat clear, neck supple, nontender, trachea midline. Lungs: Clear to auscultation, breath sounds equal bilaterally, chest nontender. Heart: S1S2, regular, negative for clicks, rubs, or JVD. Abdomen: NABS, Soft, nondistended, nontender. Negative for masses or hepatosplenomegaly. Negative for costovertebral tenderness. Pelvis: Stable nontender. Genitourinary: Deferred. Rectal: Deferred. Extremities: Atraumatic, negative for cords or calf pain. Neurovascular unremarkable. Neuro: Awake, alert, oriented. Left-sided facial droop noted Cerebellum unremarkable. Positive drip of left upper extremity and heel to olvera on left also decreased. Exam nonfocal. Skin:warm and dry Diagnostics: CT head-negative for bleed, CBC, chemistry, coags, troponin, EKG, NIH 9-12 fluctuating Therapeutics: Patient was given 20 mg labetalol for BP equals 200/[address] Espinosa and Dr. Light, neurologist at [facility], who recommended starting TPA ED Course: Stable, blood pressure was decreased with labetalol to 140/60s, TPA 9mg bolus was pushed at 11:02 and drip started. Flight crew was in the ED at bedside at the time of CK bolus and will be flying this patient to [facility]. Impression: CVA Prescriptions: N/a Plan: Patient is being transferred to [facility] to neurology by flight Definitive disposition and diagnosis as appropriate pending reevaluation and review of above. n - Related Data Allergies Allergy/AdvReac Type Severity Reaction Status Date / Time No Known Allergies Allergy Verified 09/20/18 10:16 Home Meds: Home Meds Aspirin 81 mg PO DAILY tab.chew 09/08/18 [Rx] Insulin Aspart [NovoLOG] See Protocol SUBCUT TIDAC #1 box 09/08/18 [Rx] Insulin Degludec [Tresiba] 40 unit SQ BEDTIME #1 box 09/08/18 [Rx] Lisinopril [Prinivil] 5 mg PO DAILY #30 tablet 09/08/18 [Rx] Pen Needle, Diabetic [Pen Needle] 1 each MC QID #1 box 09/08/18 [Rx] atorvaSTATin [Lipitor] 80 mg PO BEDTIME #60 tablet 09/08/18 [Rx] metFORMIN HCl [Metformin HCl] 1,000 mg PO BID #60 tablet 09/08/18 [Rx] Past Medical History HEENT History: Reports: None Cardiovascular History: Reports: High Cholesterol, Hypertension. Denies: Afib, Blood Clots/VTE/DVT, CAD, [place] Respiratory History: Reports: Asthma, Other (See Below) (Sarcoidosis, with enlarged lymph nodes in chest) Gastrointestinal History: Reports: None. Denies: GERD, GI Bleed Genitourinary History: Reports: None. 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 Denies: CVA, Migraines, TIA Psychiatric History: Reports: None Endocrine/Metabolic History: Reports: Diabetes, Type II, Obesity/BMI 30+ Hematologic History: Reports: None Immunologic History: Reports: None Oncologic (Cancer) History: Reports: None Dermatologic History: Reports: None - Infectious Disease History Infectious Disease History: Reports: Chicken Pox - Past Surgical History Head Surgeries/Procedures: Reports: None HEENT Surgical History: Reports: None Respiratory Surgical History: Reports: Lung Biopsies GI Surgical History: Reports: None Female Surgical History: Reports: Hysterectomy Neurological Surgical History: Reports: None Oncologic Surgical History: Reports: None Dermatological Surgical History: Reports: None Social & Family History - Family History Family Medical History: Noncontributory Cardiac: Reports: Heart Failure, Hypertension, [place] Endocrine/Metabolic: Reports: Diabetes, type II - Caffeine Use Caffeine Use: Reports: Coffee - Living Situation & Occupation Living situation: Reports: Occupation: Employed ED ROS GENERAL - Review of Systems Review Of Systems: ROS reveals no pertinent complaints other than HPI. ED EXAM, NEURO - Physical Exam Exam: See Below (See history of present illness) Course - Vital Signs Last Recorded V/S: Last Vital Signs Temp 97.1 F 09/20/18 11:03 Pulse 77 09/20/18 11:03 Resp 16 09/20/18 11:03 BP 145/67 H 09/20/18 11:03 Pulse Ox 97 09/20/18 11:03 - Orders/Labs/Meds Orders: Active Orders 24 hr Category Date Time Status Assess Neurological Status [RC] ASDIRECTED Care 09/20/18 10:12 Active Bedrest [RC] ASDIRECTED Care 09/20/18 10:12 Active Cardiac Monitoring [RC] . DIRECTED Care 09/20/18 10:12 Active EKG Documentation Completion [RC] STAT Care 09/20/18 10:12 Active Height and Weight [RC] UPON Care 09/20/18 10:12 Active Initiate Acute Stroke Protocol [RC] STAT Care 09/20/18 10:12 Active Insert Baird Catheter [Insert Urinary Catheter] [OM.PC] Care 09/20/18 11:30 Ordered Q24H NIH Stroke Scale [RC] ASDIRECTED Care 09/20/18 10:12 Active Nursing Bedside Swallow Screen [RC] ASDIRECTED Care 09/20/18 10:12 Active Oxygen Therapy [RC] ASDIRECTED Care 09/20/18 10:12 Active Stroke Education, General [RC] Click to Edit Care 09/20/18 10:12 Active Urinary Catheter Assessment [RC] ASDIRECTED Care 09/20/18 11:19 Active Vital Signs [RC] Q15M Care 09/20/18 10:12 Active Alteplase [Activase] Med 09/20/18 11:15 Active 9 mg IVPUSH .BOLUS Alteplase [Activase] 81 mg Med 09/20/18 11:15 Active Premix Bag 1 bag IV .INFUSION Sodium Chloride 0.9% [Normal Saline] Med 09/20/18 10:12 Active 10 ml IV ASDIRECTED PRN Sodium Chloride 0.9% [Saline Flush] Med 09/20/18 10:12 Active 10 ml FLUSH ASDIRECTED PRN Sodium Chloride 0.9% [Saline Flush] Med 09/20/18 10:12 Active 2.5 ml FLUSH ASDIRECTED PRN Peripheral IV Insertion Adult [OM.PC] Stat Ot 09/20/18 10:12 Ordered Peripheral IV Insertion Adult [OM.PC] Stat Ot 09/20/18 10:12 Ordered Medication Orders Alteplase, Recombinant (Activase) 9 mg IVPUSH .BOLUS [facility] Last Admin: 09/20/18 12:19 Dose: 9 mg Alteplase, Recombinant 81 mg/ (Premix) 0 mls @ 0 mls/hr IV .INFUSION [facility] Last Admin: 09/20/18 12:20 Dose: 81 mls/hr Sodium Chloride (Saline Flush) 10 ml FLUSH ASDIRECTED PRN PRN Reason: Keep Vein Open Sodium Chloride (Saline Flush) 2.5 ml FLUSH ASDIRECTED PRN PRN Reason: Keep Vein Open Sodium Chloride (Normal Saline) 10 ml IV ASDIRECTED PRN PRN Reason: IV Use Labs: Laboratory Tests 09/20/18 09/20/18 09/20/18 Range/Units 10:10 10:10 10:10 WBC 4.97 (4.0-11.0) K/uL RBC 4.72 (4.30-5.90) M/uL Hgb 13.0 (12.0-16.0) g/dL Hct 39.8 (36.0-46.0) % MCV 84.3 (80.0-98.0) fL MCH 27.5 (27.0-32.0) pg MCHC 32.7 (31.0-37.0) g/dL RDW Std Deviation 38.2 (28.0-62.0) fl RDW Coeff of Speedy 13 (11.0-15.0) % Plt Count 143 L (150-400) K/uL MPV 11.20 (7.40-12.00) fL Neut % (Auto) 68.2 (48.0-80.0) % Lymph % (Auto) 20.1 (16.0-40.0) % [place] % (Auto) 10.7 (0.0-15.0) % Eos % (Auto) 0.8 (0.0-7.0) % Baso % (Auto) 0.2 (0.0-1.5) % Neut # (Auto) 3.4 (1.4-5.7) K/uL Lymph # (Auto) 1.0 (0.6-2.4) K/uL [place] # (Auto) 0.5 (0.0-0.8) K/uL Eos # (Auto) 0.0 (0.0-0.7) K/uL Baso # (Auto) 0.0 (0.0-0.1) K/uL Nucleated RBC % 0.0 /100WBC Nucleated RBCs # 0 K/uL INR 1.00 APTT 28.0 (18.6-31.3) SEC Sodium 141 (136-145) mmol/L Potassium 4.2 (3.5-5.1) mmol/L Chloride 105 (98-107) mmol/L Carbon Dioxide 27.8 (21.0-32.0) mmol/L BUN 21 H (7.0-18.0) mg/dL Creatinine 0.7 (0.6-1.0) mg/dL Est Cr Clr Drug Dosing 102.38 mL/min Estimated GFR (MDRD) > 60.0 ml/min Glucose 166 H (74-106) mg/dL Calcium 9.2 (8.5-10.1) mg/dL Total Bilirubin 0.5 (0.2-1.0) mg/dL AST 24 (15-37) IU/L ALT 47 (14-63) IU/L Alkaline Phosphatase 111 (46-116) U/L Troponin I < 0.050 (0.000-0.056) ng/mL Total Protein 7.6 (6.4-8.2) g/dL Albumin 3.7 (3.4-5.0) g/dL Globulin 3.9 (2.6-4.0) g/dL Albumin/Globulin Ratio 0.9 (0.9-1.6) TSH 3rd Generation 1.49 (0.36-3.74) uIU/mL Meds: Medications Generic Name Dose Route Start Last Admin Trade Name Freq PRN Reason Stop Dose Admin Alteplase, Recombinant 9 mg 09/20/18 11:15 09/20/18 12:19 Activase IVPUSH 9 mg .BOLUS DUNIA Administration Alteplase, Recombinant 81 mg/ 0 mls @ 0 mls/hr 09/20/18 11:15 09/20/18 12:20 Premix IV 81 mls/hr .INFUSION DUNIA Administration Sodium Chloride 10 ml 09/20/18 10:12 Saline Flush FLUSH ASDIRECTED PRN Keep Vein Open Sodium Chloride 2.5 ml 09/20/18 10:12 Saline Flush FLUSH ASDIRECTED PRN Keep Vein Open Sodium Chloride 10 ml 09/20/18 10:12 Normal Saline IV ASDIRECTED PRN IV Use Discontinued Medications Generic Name Dose Route Start Last Admin Trade Name Freq PRN Reason Stop Dose Admin Alteplase, Recombinant Confirm 09/20/18 10:52 09/20/18 12:19 Activase Administered 09/20/18 10:53 Not Given Dose 100 mg .ROUTE .STK-MED ONE Labetalol HCl 20 mg 09/20/18 10:12 09/20/18 10:23 Normodyne IVPUSH 09/20/18 10:13 20 mg NOW ONE Administration Protocol Labetalol HCl Confirm 09/20/18 10:20 09/20/18 10:46 Normodyne Administered 09/20/18 10:21 Not Given Dose 100 mg .ROUTE .STK-MED ONE Departure - Departure Time of Disposition: 11:13 Disposition: Home, Self-Care 01 Condition: Serious Clinical Impression: CVA (cerebral vascular accident) Qualifiers: CVA mechanism: unspecified Qualified Code(s): I63.9 - Cerebral infarction, unspecified - Discharge Information *PRESCRIPTION DRUG MONITORING PROGRAM REVIEWED*: No *COPY OF PRESCRIPTION DRUG MONITORING REPORT IN PATIENT YIN: No Referrals: PCP,None [Primary Care Provider] - - My Orders Last 24 Hours: My Active Orders 09/20/18 10:12 Assess Neurological Status [RC] ASDIRECTED Bedrest [RC] ASDIRECTED Cardiac Monitoring [RC] . DIRECTED EKG Documentation Completion [RC] STAT Height and Weight [RC] UPON Initiate Acute Stroke Protocol [RC] STAT NIH Stroke Scale [RC] ASDIRECTED Nursing Bedside Swallow Screen [RC] ASDIRECTED Oxygen Therapy [RC] ASDIRECTED Stroke Education, General [RC] Click to Edit Vital Signs [RC] Q15M Sodium Chloride 0.9% [Normal Saline] 10 ml IV ASDIRECTED PRN Sodium Chloride 0.9% [Saline Flush] 10 ml FLUSH ASDIRECTED PRN Sodium Chloride 0.9% [Saline Flush] 2.5 ml FLUSH ASDIRECTED PRN Peripheral IV Insertion Adult [OM.PC] Stat Peripheral IV Insertion Adult [OM.PC] Stat 09/20/18 11:15 Alteplase [Activase] 9 mg IVPUSH .BOLUS Alteplase [Activase] 81 mg Premix Bag 1 bag IV .INFUSION 09/20/18 11:19 Urinary Catheter Assessment [RC] ASDIRECTED 09/20/18 11:30 Insert Baird Catheter [Insert Urinary Catheter] [OM.PC] Q24H - Assessment/Plan Last 24 Hours: My Active Orders 09/20/18 10:12 Assess Neurological Status [RC] ASDIRECTED Bedrest [RC] ASDIRECTED Cardiac Monitoring [RC] . DIRECTED EKG Documentation Completion [RC] STAT Height and Weight [RC] UPON Initiate Acute Stroke Protocol [RC] STAT NIH Stroke Scale [RC] ASDIRECTED Nursing Bedside Swallow Screen [RC] ASDIRECTED Oxygen Therapy [RC] ASDIRECTED Stroke Education, General [RC] Click to Edit Vital Signs [RC] Q15M Sodium Chloride 0.9% [Normal Saline] 10 ml IV ASDIRECTED PRN Sodium Chloride 0.9% [Saline Flush] 10 ml FLUSH ASDIRECTED PRN Sodium Chloride 0.9% [Saline Flush] 2.5 ml FLUSH ASDIRECTED PRN Peripheral IV Insertion Adult [OM.PC] Stat Peripheral IV Insertion Adult [OM.PC] Stat 09/20/18 11:15 Alteplase [Activase] 9 mg IVPUSH .BOLUS Alteplase [Activase] 81 mg Premix Bag 1 bag IV .INFUSION 09/20/18 11:19 Urinary Catheter Assessment [RC] ASDIRECTED 09/20/18 11:30 Insert Baird Catheter [Insert Urinary Catheter] [OM.PC] Q24H
[2018-09-20] MEDS ORDERED: Labetalol 100 MG/20 ML MDV ONE (10:20)
--- NOTE | 2018-09-20 10:31 | CT ---
EXAMINATION: Non contrast CT head. Coronal and sagittal reformats. HISTORY: Stroke code FINDINGS: No evidence of intra or extra axial hemorrhage, mass, midline shift, hydrocephalus or edema. No hypoattenuation changes in the major vascular territories to suggest acute infarct. No abnormal intracranial calcifications are detected. No evidence of substantial vascular calcifications. Paranasal sinuses and mastoid air cells are well aerated without substantial findings. Pituitary fossa appears unremarkable. Orbits and globes are symmetric. Degenerative changes noted within the temporomandibular joints, left greater than right. Calvarium is intact. No evidence of skull fracture. IMPRESSION: No acute intracranial findings. Above findings were called to the ER at 10:28 AM.
[2018-09-20 10:51] LABS: CHLORIDE,CL 105 mmol/L (98-107); SODIUM,NA 141 mmol/L (136-145)
[2018-09-20 11:04] VITALS: BP 145/67
[2018-09-20] MEDS ORDERED: Alteplase 81 MG in Premix Bag 1 BAG IV SCH (11:15)
[2018-09-20] MEDS ORDERED: Alteplase 81 MG in Premix Bag 1 BAG IV ONE (12:20)
--- NOTE | 2018-09-20 12:40 | EDM.PDOC ---
ED HPI GENERAL MEDICAL PROBLEM - General Chief Complaint: Neuro Symptoms/Deficits Stated Complaint: WEAKNESS Time Seen by Provider: 09/20/18 10:10 Source of Information: Reports: Patient History Limitations: Reports: No Limitations - History of Present Illness INITIAL COMMENTS - FREE TEXT/NARRATIVE: History of present illness: []Patient arrives with history of dizziness that began at 7:30 this morning while driving into work and then noted left arm weakness and numbness at 9 AM. A stroke code was called patient's glucose was 104 she was noted to be hypertensive at 200/100. Patient had a syncopal episode and was worked up 2 weeks ago and worked up here here with an MRI/MRA. No cause was found. Review of systems: As per history of present illness and below otherwise all systems reviewed and negative. Past medical history: As per history of present illness and as reviewed below otherwise noncontributory. Surgical history: As per history of present illness and as reviewed below otherwise noncontributory. Social history: 69 year old man with history of HTN, hypothyroidism, CAD, bipolar disorder presenting for follow up cognitive decline In April 2016 , one day, his hand writing was "gone". In 2015, his memory issues started. It was mild initially, short term issue immediately but progressed rapidly. He started making mistakes at work, and he stopped working in June 2016. His hand writing actually recovered over a year. He also has a history of impaired balance that was more severe when he was drinking 6 beers / day. 1.5 weeks ago, she had a syncopal episode and was admitted. MRA head and neck at that time was notable for severe stenosis of the left supraclinoid ICA. This morning at 7:30 am, she developed light-headedness while she was in car about to go into work. She decided to go home. Between 9 and 9:30, she developed numbness and weakness of the left side. It has been the same since it started. She still feels light headed. No history of stroke. No GI or bleeding, intracranial bleeding. after labetalol. She has poorly controlled DM. Glucose this am was 130s. - Related Data Allergies Allergy/AdvReac Type Severity Reaction Status Date / Time No Known Allergies Allergy Verified 09/20/18 10:16 Home Meds: Home Meds Aspirin 81 mg PO DAILY tab.chew 09/08/18 [Rx] Insulin Aspart [NovoLOG] See Protocol SUBCUT TIDAC #1 box 09/08/18 [Rx] Insulin Degludec [Tresiba] 40 unit SQ BEDTIME #1 box 09/08/18 [Rx] Lisinopril [Prinivil] 5 mg PO DAILY #30 tablet 09/08/18 [Rx] Pen Needle, Diabetic [Pen Needle] 1 each MC QID #1 box 09/08/18 [Rx] atorvaSTATin [Lipitor] 80 mg PO BEDTIME #60 tablet 09/08/18 [Rx] metFORMIN HCl [Metformin HCl] 1,000 mg PO BID #60 tablet 09/08/18 [Rx] Past Medical History HEENT History: Reports: None Cardiovascular History: Reports: High Cholesterol, Hypertension. Denies: Afib, Blood Clots/VTE/DVT, CAD, AR Respiratory History: Reports: Asthma, Other (See Below) (Sarcoidosis, with enlarged lymph nodes in chest) Gastrointestinal History: Reports: None. Denies: GERD, GI Bleed Genitourinary History: Reports: None. 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 Denies: CVA, Migraines, TIA Psychiatric History: Reports: None Endocrine/Metabolic History: Reports: Diabetes, Type II, Obesity/BMI 30+ Hematologic History: Reports: None Immunologic History: Reports: None Oncologic (Cancer) History: Reports: None Dermatologic History: Reports: None - Infectious Disease History Infectious Disease History: Reports: Chicken Pox - Past Surgical History Head Surgeries/Procedures: Reports: None HEENT Surgical History: Reports: None Respiratory Surgical History: Reports: Lung Biopsies GI Surgical History: Reports: None Female Surgical History: Reports: Hysterectomy Neurological Surgical History: Reports: None Oncologic Surgical History: Reports: None Dermatological Surgical History: Reports: None Social & Family History - Family History Family Medical History: Noncontributory Cardiac: Reports: Heart Failure, Hypertension, AR Endocrine/Metabolic: Reports: Diabetes, type II - Tobacco Use Smoking Status *Q: Never Smoker Second Hand Smoke Exposure: No - Caffeine Use Caffeine Use: Reports: Coffee - Recreational Drug Use Recreational Drug Use: No - Living Situation & Occupation Living situation: Reports: Occupation: Employed ED ROS GENERAL - Review of Systems Review Of Systems: See Below Constitutional: Reports: No Symptoms Respiratory: Reports: No Symptoms Cardiovascular: Reports: No Symptoms GI/Abdominal: Reports: No Symptoms Neurological: Reports: Dizziness, Syncope, Weakness Free Text/Narrative/Comment: Constitutional: No acute distress Psychiatric: Mood/Affect: blunted affect Neurological: Mental Status: General: Paucity of speech, blunted a Level of consciousness: Awake, alert. Orientation: Oriented to person, place, time and situation. Naming and repeation intact. Cranial Nerves: Pupils equally round and reactive to light. Visual horowitz impaired left hemifield. Gaze conjugate, EOMI. Sensation intact and symmetric to light touch. Facial strength is full and symmetric. Palate elevates symmetrically. Normal shrug bilaterally. Tongue protrudes midline Motor: Normal tone in all groups. Left arm and leg drift. Left arm drifts down without pronation. [place] in LUE/LLE Sensation: Sensation is decreased to light touch and temp left upper and lower limb. Deep tendon reflexes: Diminished . Coordination: Finger to nose intact, heel to olvera limited on left ED EXAM, NEURO - Physical Exam Exam: See Below Comments: Constitutional: No acute distress Psychiatric: Mood/Affect: blunted affect Neurological: Mental Status: General: Paucity of speech, blunted a Level of consciousness: Awake, alert. Orientation: Oriented to person, place, time and situation. Naming and repeation intact. Cranial Nerves: Pupils equally round and reactive to light. Visual horowitz impaired left hemifield. Gaze conjugate, EOMI. Sensation intact and symmetric to light touch. Facial strength is full and symmetric. Palate elevates symmetrically. Normal shrug bilaterally. Tongue protrudes midline Motor: Normal tone in all groups. Left arm and leg drift. Left arm drifts down without pronation. [place] in LUE/LLE Sensation: Sensation is decreased to light touch and temp left upper and lower limb. Deep tendon reflexes: Diminished . Coordination: Finger to nose intact, heel to olvera limited on left Course - Vital Signs Last Recorded V/S: Last Vital Signs Temp 36.2 C 09/20/18 11:03 Pulse 77 09/20/18 11:03 Resp 16 09/20/18 11:03 BP 145/67 H 09/20/18 11:03 Pulse Ox 97 09/20/18 11:03 - Orders/Labs/Meds Orders: Active Orders 24 hr Category Date Time Status Assess Neurological Status [RC] ASDIRECTED Care 09/20/18 10:12 Active Bedrest [RC] ASDIRECTED Care 09/20/18 10:12 Active Cardiac Monitoring [RC] . DIRECTED Care 09/20/18 10:12 Active EKG Documentation Completion [RC] STAT Care 09/20/18 10:12 Active Height and Weight [RC] UPON Care 09/20/18 10:12 Active Initiate Acute Stroke Protocol [RC] STAT Care 09/20/18 10:12 Active Insert Baird Catheter [Insert Urinary Catheter] [OM.PC] Care 09/20/18 11:30 Ordered Q24H NIH Stroke Scale [RC] ASDIRECTED Care 09/20/18 10:12 Active Nursing Bedside Swallow Screen [RC] ASDIRECTED Care 09/20/18 10:12 Active Oxygen Therapy [RC] ASDIRECTED Care 09/20/18 10:12 Active Stroke Education, General [] Click to Edit Care 09/20/18 10:12 Active Urinary Catheter Assessment [RC] ASDIRECTED Care 09/20/18 11:19 Active Vital Signs [RC] Q15M Care 09/20/18 10:12 Active Alteplase [Activase] Med 09/20/18 11:15 Active 9 mg IVPUSH .BOLUS Alteplase [Activase] 81 mg Med 09/20/18 11:15 Active Premix Bag 1 bag IV .INFUSION Sodium Chloride 0.9% [Normal Saline] Med 09/20/18 10:12 Active 10 ml IV ASDIRECTED PRN Sodium Chloride 0.9% [Saline Flush] Med 09/20/18 10:12 Active 10 ml FLUSH ASDIRECTED PRN Sodium Chloride 0.9% [Saline Flush] Med 09/20/18 10:12 Active 2.5 ml FLUSH ASDIRECTED PRN Peripheral IV Insertion Adult [OM.PC] Stat Oth 09/20/18 10:12 Ordered Peripheral IV Insertion Adult [OM.PC] Stat Oth 09/20/18 10:12 Ordered Medication Orders Alteplase, Recombinant (Activase) 9 mg IVPUSH .BOLUS DUNIA Last Admin: 09/20/18 12:19 Dose: 9 mg Alteplase, Recombinant 81 mg/ (Premix) 0 mls @ 0 mls/hr IV .INFUSION DUNIA Last Admin: 09/20/18 12:20 Dose: 81 mls/hr Sodium Chloride (Saline Flush) 10 ml FLUSH ASDIRECTED PRN PRN Reason: Keep Vein Open Sodium Chloride (Saline Flush) 2.5 ml FLUSH ASDIRECTED PRN PRN Reason: Keep Vein Open Sodium Chloride (Normal Saline) 10 ml IV ASDIRECTED PRN PRN Reason: IV Use Labs: Laboratory Tests 09/20/18 09/20/18 09/20/18 Range/Units 10:10 10:10 10:10 WBC 4.97 (4.0-11.0) K/uL RBC 4.72 (4.30-5.90) M/uL Hgb 13.0 (12.0-16.0) g/dL Hct 39.8 (36.0-46.0) % MCV 84.3 (80.0-98.0) fL MCH 27.5 (27.0-32.0) pg MCHC 32.7 (31.0-37.0) g/dL RDW Std Deviation 38.2 (28.0-62.0) fl RDW Coeff of Speedy 13 (11.0-15.0) % Plt Count 143 L (150-400) K/uL MPV 11.20 (7.40-12.00) fL Neut % (Auto) 68.2 (48.0-80.0) % Lymph % (Auto) 20.1 (16.0-40.0) % [place] % (Auto) 10.7 (0.0-15.0) % Eos % (Auto) 0.8 (0.0-7.0) % Baso % (Auto) 0.2 (0.0-1.5) % Neut # (Auto) 3.4 (1.4-5.7) K/uL Lymph # (Auto) 1.0 (0.6-2.4) K/uL [place] # (Auto) 0.5 (0.0-0.8) K/uL Eos # (Auto) 0.0 (0.0-0.7) K/uL Baso # (Auto) 0.0 (0.0-0.1) K/uL Nucleated RBC % 0.0 /100WBC Nucleated RBCs # 0 K/uL INR 1.00 APTT 28.0 (18.6-31.3) SEC Sodium 141 (136-145) mmol/L Potassium 4.2 (3.5-5.1) mmol/L Chloride 105 (98-107) mmol/L Carbon Dioxide 27.8 (21.0-32.0) mmol/L BUN 21 H (7.0-18.0) mg/dL Creatinine 0.7 (0.6-1.0) mg/dL Est Cr Clr Drug Dosing 102.38 mL/min Estimated GFR (MDRD) > 60.0 ml/min Glucose 166 H (74-106) mg/dL Calcium 9.2 (8.5-10.1) mg/dL Total Bilirubin 0.5 (0.2-1.0) mg/dL AST 24 (15-37) IU/L ALT 47 (14-63) IU/L Alkaline Phosphatase 111 (46-116) U/L Troponin I < 0.050 (0.000-0.056) ng/mL Total Protein 7.6 (6.4-8.2) g/dL Albumin 3.7 (3.4-5.0) g/dL Globulin 3.9 (2.6-4.0) g/dL Albumin/Globulin Ratio 0.9 (0.9-1.6) TSH 3rd Generation 1.49 (0.36-3.74) uIU/mL Meds: Medications Generic Name Dose Route Start Last Admin Trade Name Freq PRN Reason Stop Dose Admin Alteplase, Recombinant 9 mg 09/20/18 11:15 09/20/18 12:19 Activase IVPUSH 9 mg .BOLUS DUNIA Administration Alteplase, Recombinant 81 mg/ 0 mls @ 0 mls/hr 09/20/18 11:15 09/20/18 12:20 Premix IV 81 mls/hr .INFUSION DUNIA Administration Sodium Chloride 10 ml 09/20/18 10:12 Saline Flush FLUSH ASDIRECTED PRN Keep Vein Open Sodium Chloride 2.5 ml 09/20/18 10:12 Saline Flush FLUSH ASDIRECTED PRN Keep Vein Open Sodium Chloride 10 ml 09/20/18 10:12 Normal Saline IV ASDIRECTED PRN IV Use Discontinued Medications Generic Name Dose Route Start Last Admin Trade Name Freq PRN Reason Stop Dose Admin Alteplase, Recombinant Confirm 09/20/18 10:52 09/20/18 12:19 Activase Administered 09/20/18 10:53 Not Given Dose 100 mg .ROUTE .STK-MED ONE Labetalol HCl 20 mg 09/20/18 10:12 09/20/18 10:23 Normodyne IVPUSH 09/20/18 10:13 20 mg NOW ONE Administration Protocol Labetalol HCl Confirm 09/20/18 10:20 09/20/18 10:46 Normodyne Administered 09/20/18 10:21 Not Given Dose 100 mg .ROUTE .STK-MED ONE Departure - Departure Time of Disposition: 10:30 Disposition: Home, Self-Care 01 Condition: Serious Clinical Impression: CVA (cerebral vascular accident) Qualifiers: CVA mechanism: unspecified Qualified Code(s): I63.9 - Cerebral infarction, unspecified - Discharge Information *PRESCRIPTION DRUG MONITORING PROGRAM REVIEWED*: No *COPY OF PRESCRIPTION DRUG MONITORING REPORT IN PATIENT YIN: No Referrals: PCP,None [Primary Care Provider] - - Problem List & Annotations (1) CVA (cerebral vascular accident) SNOMED Code(s): 575196087 Code(s): I63.9 - CEREBRAL INFARCTION, UNSPECIFIED Status: Acute Current Visit: Yes Qualifiers: CVA mechanism: unspecified Qualified Code(s): I63.9 - Cerebral infarction, unspecified - Problem List Review Problem List Initiated/Reviewed/Updated: Yes - Assessment/Plan Assessment:: NIHSS 7 Suspected stroke with functional overlay. Symptoms are unrelated to L ICA stenosis (wrong side). TPA and transfer to [facility] as they have vascular neurologist and neurosurgeons to address treatment of severe intracranial stenosis, which is not available at [facility].
== END 2018-09-20 11:40 | disposition home or self-care (01) ==
LOC: MW.ED 10:08
DX: I63.9 Cerebral infarction, unspecified (principal); R29.707 NIHSS score 7; I10 Essential (primary) hypertension; E78.00 Pure hypercholesterolemia, unspecified; J45.909 Unspecified asthma, uncomplicated; E11.9 Type 2 diabetes mellitus without complications; Z79.4 Long term (current) use of insulin; Z79.82 Long term (current) use of aspirin; Z79.899 Other long term (current) drug therapy
CPT/HCPCS: 36415; 70450; 80053; 84443; 84484; 85025; 85610; 85730; 93005; 96365; 96375; 99285; A4217; J2997; J3490; 99283

== ENCOUNTER 2019-07-10 06:46 | Emergency (ER) | payer BC ==
[2019-07-10 08:05] VITALS: PULSE 94
[2019-07-10 08:08] VITALS: BP 179/88
[2019-07-10] MEDS ORDERED: Amoxicillin/Clavulanate K 875-125 MG Tab PO ONE (08:18)
--- NOTE | 2019-07-10 08:20 | EDM.PDOC ---
ED [facility] GENERAL MEDICAL PROBLEM - General Chief Complaint: ENT Problem Stated Complaint: RT EAR BLEEDING AND DRAINING Time Seen by Provider: 07/10/19 08:07 - History of Present Illness INITIAL COMMENTS - FREE TEXT/NARRATIVE: HPI 48-year-old morbidly obese female with DM II, medication noncompliance, IC stenosis, and CVA presents for evaluation of right ear pain of one day duration. No fevers, chills, changes in vision or hearing, headache. Patient reports she put a Q-tip that her ear this morning, no discovery, and scant amount bright red blood. Denies a history trauma, dental, or jaw pain. M/S/F/SocHx notable for: please see HPI; remainder reviewed with patient and in chart. ROS: Negative constitutional, eye, cardiovascular, pulmonary, GI, , MSK, skin , neurologic, psychiatric, endocrine unless noted in the HPI. Exam HR 94, RR 18, BP 179/88, T 36.1C, SaO2 97% on room air. Gen: Pleasant, non-toxic appearing, resting comfortably. Head: Normocephalic, atraumatic. Ears - Left TM clear, with the external auditory canal without erythema, inflammation, or swelling, mastoid nontender without overlying erythema, swelling, tenderness to palpation, or warmth. - Right TM with purulent effusion, with the external auditory canal with a mild area of excoriation and scant bright red blood without active bleeding and approximately 3 oclock position intimately lateral to the tympanic membrane, otherwise without erythema, inflammation, or swelling, mastoid nontender without overlying erythema, swelling, tenderness to palpation, or warmth. Eyes - Bilateral eyes without injection, swelling, or discharge, EOMI without pain, no proptosis or periorbital erythema, swelling, warmth, or tenderness. Mouth - Anterior oropharynx with MMM, no lesions appreciated, floor of the mouth is soft and without swelling. Posterior oropharynx without swelling, exudate, erythema, lesions, or post-nasal drip, uvula midline. Nose - Nares without crusting or discharge. Neck - Neck supple without posterior anterior cervical chain lymphadenopathy bilaterally. Resp: Clear to auscultation bilaterally, normal work of breathing without accessory muscle usage. Card: Regular rate and rhythm with no murmurs, rubs or gallops. Extremities warm and well perfused. GI: Non-tender to palpation throughout all quadrants, no masses or organomegaly appreciated. : Deferred MSK: No visible deformities, strength and tone visually normal. Skin: Normal color with no visible lesions. Neuro: No facial asymmetry, EOMI, PERRL, moving all extremities without visible deficit. Heme: Deferred MDM Previous chart, nursing note, and vitals reviewed. A: 48-year-old morbidly obese female with DM II, medication noncompliance, IC stenosis, and CVA presents for evaluation of right ear pain of one day duration. DDx: AOM, otitis externa, mastoiditis, trauma, dental or TMJ pain. Evaluation: Given the normal external auditory canals there is no evidence of otitis externa, mastoids are similarly unremarkable, there is no discernible trauma on history or exam[, and the patient also has no reported history of dental or jaw pain. Given the ear pain and effusion noted on exam, the patient was prescribed Augmentin and discharged with instructions for primary care physician follow up. Impression: Acute otitis media. right ear Pain Score (Numeric/FACES): 7 - Related Data Allergies Allergy/AdvReac Type Severity Reaction Status Date / Time No Known Allergies Allergy Verified 07/10/19 08:03 Home Meds: Home Meds Aspirin 81 mg PO DAILY tab.chew 09/08/18 [Rx] Insulin Aspart [NovoLOG] See Protocol SUBCUT TIDAC #1 box 09/08/18 [Rx] Insulin Degludec [Tresiba] 40 unit SQ BEDTIME #1 box 09/08/18 [Rx] Pen Needle, Diabetic [Pen Needle] 1 each QID #1 box 09/08/18 [Rx] atorvaSTATin [Lipitor] 80 mg PO BEDTIME #60 tablet 09/08/18 [Rx] lisinopriL [Prinivil] 5 mg PO DAILY #30 tablet 09/08/18 [Rx] Amoxicillin/Clavulanate K [Augmentin 875-125 MG] 1 tab PO BID #19 tablet [Rx] Sertraline HCl [Zoloft] 200 mg PO DAILY 07/10/19 [History] Past Medical History HEENT History: Reports: None Cardiovascular History: Reports: High Cholesterol, Hypertension Respiratory History: Reports: Asthma, Other (See Below) Gastrointestinal History: Reports: None Genitourinary History: Reports: None 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: Musculoskeletal History: Reports: Fibromyalgia Neurological History: Reports: CVA Psychiatric History: Reports: Depression Endocrine/Metabolic History: Reports: Diabetes, Type II, Obesity/BMI 30+ Hematologic History: Reports: None Immunologic History: Reports: None Oncologic (Cancer) History: Reports: None Dermatologic History: Reports: None - Infectious Disease History Infectious Disease History: Reports: Chicken Pox - Past Surgical History Head Surgeries/Procedures: Reports: None HEENT Surgical History: Reports: None Cardiovascular Surgical History: Reports: None Respiratory Surgical History: Reports: Lung Biopsies GI Surgical History: Reports: None Female Surgical History: Reports: Hysterectomy Endocrine Surgical History: Reports: None Neurological Surgical History: Reports: None Musculoskeletal Surgical History: Reports: None Oncologic Surgical History: Reports: None Dermatological Surgical History: Reports: None Social & Family History - Family History Family Medical History: Noncontributory Cardiac: Reports: Heart Failure, Hypertension, [place] Endocrine/Metabolic: Reports: Diabetes, type II - Tobacco Use Smoking Status *Q: Never Smoker Second Hand Smoke Exposure: No - Caffeine Use Caffeine Use: Reports: Coffee - Recreational Drug Use Recreational Drug Use: No - Living Situation & Occupation Living situation: Reports: Occupation: Employed ED ROS GENERAL - Review of Systems Review Of Systems: See Below ED EXAM, GENERAL - Physical Exam Exam: See Below Course - Vital Signs Last Recorded V/S: Last Vital Signs Temp 36.1 C 07/10/19 07:59 Pulse 94 07/10/19 07:59 Resp 18 07/10/19 07:59 BP 179/88 H 07/10/19 07:59 Pulse Ox 97 07/10/19 07:59 - Orders/Labs/Meds Orders: Active Orders 24 hr Category Date Time Status Amoxicillin/Clavulanate K [Augmentin 875 MG/125 MG] Med 07/10/19 08:18 Once 1 tab PO ONETIME ONE Departure - Departure Time of Disposition: 08:19 Disposition: Home, Self-Care 01 Clinical Impression: Otitis media - Discharge Information Prescriptions: Amoxicillin/Clavulanate K [Augmentin 875-125 MG] 1 tab PO BID #19 tablet Referrals: Rachel Koch MD [Primary Care Provider] - Additional Instructions: You were in seen in the [facility] Emergency Department for evaluation of ear pain. Please read and follow all of the instructions below. Please follow up with your primary care physician within 24 hours repeat evaluation of your right your infection as well as your asymptomatic hypertension. When calling for follow-up care, please make the office aware that this follow-up is from your recent emergency room visit. If for any reason you are refused follow-up, please contact the [facility] Emergency Department at and asked to speak to the emergency department charge nurse. Your care today was limited to identifying and treating emergent medical problems only. Many people have subtle differences in their test results that require follow up with their outpatient physician(s) to correctly determine if this represents a normal variation or concerning abnormality with respect to your specific health. The care given to you today was limited to identifying and treating emergent medical problems - you need to request a copy of all of your medical records from today's visit and follow up with your outpatient physician(s) to review both today's visit and your overall health. If you have any new symptoms or if you are at all concerned about your health please return immediately to the emergency department. Prescriptions: If you are uninsured or have financial difficulties with filling your prescription(s), you may consider using a free pharmacy discount service such as [employer] (Interface21) or [employer] (SCOUPY). These services allow you to search for a medication on your phone (or computer) and obtain a coupon that usually has a significant discount from the list reddy at a pharmacy. Your physician as well as [facility] does not have a financial relationship with either of these services. You may also wish to speak with your physician to determine if lower cost prescriptions are possible. Obtaining primary care: 1. [facility] provides pediatrics (children), family medicine (children, adults, and some obstetrical care), and internal medicine (adults). Further specialty care is also available. Same day appointments are available. They may be contacted at [phone] and are open Tuesday through Tuesday 8 AM to 5 PM. The [facility] are located at [facility], [address] [place] [address]. 2. [facility] offers family medicine, internal medicine, womens health, and further specialty care. [facility] may be contacted at [phone]. [facility] is located at [address] [place], [address]. 3. If you have health insurance, please also contact your insurer for a list of accepting providers under your policy, you may contact these providers for further health care. Occupational health: Work related injuries may consider following up with [facility], . Occupational health services are located at [address] [place] [id number] and are open Tuesday through Tuesday from 7: 30 am to 5:00 pm. Obstetrical and Gynecological Care: [facility], , Tuesday through Tuesday 8 AM to 5 PM. [address], [place] [address]. Eyecare: If you have an eye injury you should follow up with your woodwork salvage inspector or with [facility], at [phone] or [phone] , they are located at [address] [place] [address]. Dental Care Wyatt Norris DDS. [address] [place], [place]. Ph. [phone] Saqib Norris DDS MS. [address] [facility] [address], [place], [place]. Ph. Isai Gold DDS. [address] [place] [address]. Ph. [phone] Rory Metz DDS. [address] [facility] 4 [place], [place]. Ph. [phone] [facility]. [address] [facility] [address] [place], [place]. Ph. [phone] Meet Yoo DDS. [address] [facility]. Ph. [phone] [facility]. [address] [place], [place]. Ph. [phone] [facility]. [address] [place] [address], [place], [place]. Ph. [phone] [facility] [address] [place] [address]. Ph. [facility]. [address] [place] [address] [address] [place]. Ph. [facility]. [address] [facility] [address], [place], [place]. Ph. Acute otitis media - Infection of the middle ear. You were diagnosed with an infection of middle ear. These infections are most commonly caused by viruses and bacteria. Based upon the exam today, it appears that you have a bacterial infection. Expect the symptoms to remain similar or slightly worsen over the next 12- 24 hours. After that you should start noticing an improvement with treatment. Please take the full course of the prescribed antibiotic, even if you feel better. However, if you believe you are having a drug reaction, please discontinue the medication and follow up with your primary care physician or return to the emergency department (please read the drug precautions below). Please return to the emergency department if you have a headache, neck stiffness, rash, becomes sensitive to bright light, are lethargic, or if you are otherwise concerned about your health. If you have not significantly improved over the next 2-3 days, please follow up promptly with your physician for a repeat evaluation. Rarely a new infection may be present or a change in antibiotics may be needed. Amoxicillin/Clavulanic Acid (Brand Name: Augmentin) Please take this medication as prescribed. Please take the medication for the full duration of the precription. If you feel you are experiencing a side effect, please call your physician or the emergency department. This is a penicillin type medicine used to treat a wide variety of bacterial infections. Amoxicillin/Clavulanic Acid Side Effects: Diarrhea, nausea, or vomiting may occur. If any of these effects persist or worsen, tell the doctor or pharmacist promptly. Taking this medication with food will help to reduce stomach upset. Tell the doctor right away if any of these rare but serious side effects occur: dark urine, persistent nausea/vomiting, severe stomach/abdominal pain, yellowing eyes/skin, easy bruising/bleeding, new signs of infection (such as fever, persistent sore throat), unusual tiredness. This medication may rarely cause a severe intestinal condition (Clostridium difficile-associated diarrhea) due to a type of resistant bacteria. This condition may occur during treatment or weeks to months after treatment has stopped. Do not use anti-diarrhea products or narcotic pain medications if you have any of the following symptoms because these products may make them worse. Tell the doctor right away if you develop: persistent diarrhea, abdominal or stomach pain/cramping, blood/mucus in your stool. Use of this medication for prolonged or repeated periods may result in oral thrush or a new yeast infection. Contact the doctor if you notice white patches in your mouth, a change in vaginal discharge or other new symptoms. A very serious allergic reaction to this drug is rare. However, get medical help right away if you notice any symptoms of a serious allergic reaction, including: rash, itching/swelling (especially of the face/tongue/throat), severe dizziness, trouble breathing. Amoxicillin can commonly cause a mild rash that is usually not serious. However, you may not be able to tell it apart from a rare rash that could be a sign of a severe allergic reaction. Therefore, get medical help right away if you develop any rash. Amoxicillin/Clavulanic Acid Precautions: Before taking this product, tell your doctor or pharmacist if you are allergic to amoxicillin or clavulanic acid; or to penicillin or cephalosporin antibiotics; or if you have any other allergies. This product may contain inactive ingredients, which can cause allergic reactions or other problems. Talk to your pharmacist for more details. Before using this medication, tell the doctor or pharmacist your medical history, especially of: liver disease (including liver problems caused by previous use of amoxicillin/clavulanic acid), kidney disease, a certain type of viral infection (infectious mononucleosis). This medication may contain aspartame. If you have phenylketonuria (PKU) or any other condition that requires you to limit/avoid aspartame (or phenylalanine ) in your diet, ask your doctor or pharmacist about using this medication safely. Before having surgery, tell your doctor or dentist about all the products you use (including prescription drugs, nonprescription drugs, and herbal products). This product may cause live bacterial vaccines (such as typhoid vaccine) not to work as well. Therefore, do not have any immunizations/vaccinations while using this medication without the consent of your doctor. During , this medication should be used only when clearly needed. Discuss the risks and benefits with your doctor. This medication passes into breast milk. Consult your doctor before breast- feeding. Amoxicillin/Clavulanic Acid Drug Interactions: Drug interactions may change how your medications work or increase your risk for serious side effects. This document does not contain all possible drug interactions. Keep a list of all the products you use (including prescription/ nonprescription drugs and herbal products) and share it with your doctor and pharmacist. Do not start, stop, or change the dosage of any medicines without your doctor's approval. Products that may interact with this drug include: methotrexate. Although most antibiotics are unlikely to affect hormonal control such as pills, patch, or ring, a few antibiotics (such as rifampin, rifabutin) can decrease their effectiveness. This could result in . If you use hormonal control, ask your doctor or pharmacist for more details. This medication may interfere with certain laboratory tests (including certain urine glucose tests), possibly causing false test results. Make sure laboratory personnel and all your doctors know you use this drug. High Blood Pressure (Hypertension) When you were in the emergency department you had an abnormally high blood pressure. High blood pressure can be without symptoms. However high blood pressure can lead to many medical problems including kidney disease, strokes, and heart attacks. Your blood pressure may have been elevated due to pain or the stress of being in the emergency department, however half of people with an elevated blood pressure in the emergency department have intermission coordinator problems with high blood pressure. Please see your primary care physician in 2-3 days for a repeat check of your blood pressure. This may help prevent many health serious problems in the future. Please return to the emergency department if you develop any of the following: chest pain, shortness of breath, new or severe headache, changes in vision or hearing, weakness, or if you are otherwise concerned about your health. Sepsis Event Note - Evaluation Sepsis Screening Result: No Definite Risk - Focused Exam Vital Signs: Vital Signs Temp Pulse Resp BP Pulse Ox 07/10/19 07:59 36.1 C 94 18 179/88 H 97 Date Exam was Performed: 07/10/19 Time Exam was Performed: 08:19 - My Orders Last 24 Hours: My Active Orders 07/10/19 08:18 Amoxicillin/Clavulanate K [Augmentin 875 MG/125 MG] 1 tab PO ONETIME ONE - Assessment/Plan Last 24 Hours: My Active Orders 07/10/19 08:18 Amoxicillin/Clavulanate K [Augmentin 875 MG/125 MG] 1 tab PO ONETIME ONE
== END 2019-07-10 08:40 | disposition home or self-care (01) ==
LOC: MW.ED 07:43
DX: H66.91 Otitis media, unspecified, right ear (principal); I10 Essential (primary) hypertension; E78.00 Pure hypercholesterolemia, unspecified; E11.9 Type 2 diabetes mellitus without complications; J45.909 Unspecified asthma, uncomplicated; E66.9 Obesity, unspecified; Z68.42 Body mass index [BMI] 45.0-49.9, adult; Z86.73 Personal history of transient ischemic attack (TIA), and cerebral infarction without residual deficits; Z79.4 Long term (current) use of insulin; Z79.899 Other long term (current) drug therapy
CPT/HCPCS: 99282; A9270; 99283

== ENCOUNTER 2020-03-12 09:31 | Inpatient (IN) | payer BC ==
[2020-03-12] MEDS ORDERED: Sodium Chloride 0.9% 2.5 ML Syringe FLUSH PRN ×2 (09:47→14:01)
[2020-03-12] MEDS: Sodium Chloride 0.9% 10 ML Syringe FLUSH PRN (10:00)
[2020-03-12 10:22] LABS: BLOOD UREA NITROGEN,BUN 22 mg/dL (7.0-18.0); CARBON DIOXIDE,CO2 30.5 mmol/L (21.0-32.0); CHLORIDE,CL 102 mmol/L (98-107); GLUCOSE RANDOM 113 mg/dL (74-106); POTASSIUM,K 3.9 mmol/L (3.5-5.1); SODIUM,NA 141 mmol/L (136-145)
--- NOTE | 2020-03-12 10:39 | EDM.PDOC ---
ED HPI GENERAL MEDICAL PROBLEM - General Chief Complaint: Chest Pain Stated Complaint: CHEST PAIN Time Seen by Provider: 03/12/20 09:50 - History of Present Illness INITIAL COMMENTS - FREE TEXT/NARRATIVE: HISTORY AND PHYSICAL: History of present illness: Female with a history significant for hypertension, diabetes, asthma, sarcoidosis, coronary artery disease status post stent x2 in her proximal and mid LAD that was performed in [place] approximately 1 to 2 weeks ago who presents ER today complaining of left-sided sharp chest pain that started last night. Patient reports that when she was diagnosed with her coronary disease she had gone in for a routine physical. She reports that her routine physical exam consisted of a stress test that was abnormal resulting in a transfer for further evaluation which revealed an abnormal cardiac cath requiring 2 stents. patient reports that she was not experiencing any chest discomfort or pressure, shortness of breath, nausea, arm, back pain when she was diagnosed with her c oronary obstruction requiring stents. Patient reports that yesterday she started having a nonproductive cough. Patient reports yesterday while at work she started experiencing chest pain in the left midsternal region that she describes a sharp and pressure sensation. Patient denies any shortness of breath, diaphoresis, nausea, pain radiating to her arm jaw or back with this episode. Patient reports that the pain is worse when she walks and takes a deep breath in or coughs. She reports that there is no change when she sits and rests. Patient denies any calf tenderness although she reports that she does have bilateral lower extremity edema that she feels is secondary to retention. Patient reports that she took 1 sublingual nitroglycerin at home as well as aspirin without any change in her symptoms. Patient denies any tobacco, alcohol, drugs Patient reports that she has had a lung biopsy and was diagnosed with sarcoidosis Review of systems: As per history of present illness and below otherwise all systems reviewed and negative. Past medical history: As per history of present illness and as reviewed below otherwise noncontributory. Surgical history: As per history of present illness and as reviewed below otherwise noncontributory. Social history: No reported history of drug or alcohol abuse. Family history: As per history of present illness and as reviewed below otherwise noncontributory. Physical exam: Constitutional: Patient is oriented to person, place, and time. Appears well- developed and well-nourished. No distress. HEENT: Moist mucous membranes Head: Normocephalic and atraumatic Eyes: Right eye exhibits no discharge. Left eye exhibits no discharge. No scleral icterus Neck: Normal range of motion. No tracheal deviation present. Cardiovascular: Normal rate and regular rhythm. Pulmonary: Effort normal, no respiratory distress. Abdominal: No distention Musculoskeletal: Normal range of motion Neurologic: Alert and oriented to person, place and time. Skin: [place], warm and dry. Psychiatric: Normal mood and affect. Behavior is normal. Judgment and thought content normal. Nursing note and vital signs have been reviewed Patient's ER physical exam is significant for tenderness to palpation to her left anterior chest wall. Patient's pain is reproducible when asked take a deep breath then or cough in the ED. Diagnostics: Chest Xray: Normal cardiac silhouette No infiltrates or effusions identified. No PTX No evidence of acute bony fracture. As interpreted by ER MDCeleste Nayak EKG: Normal sinus rhythm heart rate of [address]-T wave abnormalities Normal axis No evidence of ST elevation ID As interpreted by ER physician: [employer]: Assessment and plan: This is a 49-year-old female who presents ER today complaining of chest pain. Patient's history is complicated by a recent stent that was placed secondary to abnormal test that were performed by her primary care physician. Patient reports that she has a stent in her proximal and mid LAD. Patient's pain today is sharp in nature and increases deep inspiration and palpation and cough. Although the pain in the ED appears to be more consistent with musculoskeletal discomfort given that it increases with deep inspiration and cough, given her history of hypertension, diabetes, recent coronary artery disease with stent placement, patient is extremely high risk and will need to be admitted to the hospital for observation. Patient's D-dimer was elevated. Patient received a CTA of her chest to rule out PE given her complaint of lower extremity edema. Case discussed with Dr. Davila who agrees with observation level of care. Definitive disposition and diagnosis as appropriate pending reevaluation and review of above. Chest Pain Score (Numeric/FACES): 6 - Related Data Allergies Allergy/AdvReac Type Severity Reaction Status Date / Time No Known Allergies Allergy Verified 03/12/20 09:43 Home Meds: Home Meds Aspirin 81 mg PO DAILY tab.chew 09/08/18 [Rx] Insulin Aspart [NovoLOG] See Protocol SUBCUT TIDAC #1 box 09/08/18 [Rx] Insulin Degludec [Tresiba] 40 unit SQ BEDTIME #1 box 09/08/18 [Rx] Pen Needle, Diabetic [Pen Needle] 1 each MC QID #1 box 09/08/18 [Rx] atorvaSTATin [Lipitor] 80 mg PO BEDTIME #60 tablet 09/08/18 [Rx] lisinopriL [Prinivil] 5 mg PO DAILY #30 tablet 09/08/18 [Rx] Amoxicillin/Clavulanate K [Augmentin 875-125 MG] 1 tab PO BID #19 tablet 07/10/19 [Rx] Sertraline HCl [Zoloft] 200 mg PO DAILY 07/10/19 [History] Past Medical History HEENT History: Reports: None Cardiovascular History: Reports: High Cholesterol, Hypertension, Stents Other Cardiovascular History: two stents placed on 02/28 at [facility] Respiratory History: Reports: Asthma, Other (See Below) Gastrointestinal History: Reports: None Genitourinary History: Reports: None IT SUPPORT SPECIALIST History: Reports: Musculoskeletal History: Reports: Fibromyalgia Neurological History: Reports: CVA Psychiatric History: Reports: Depression Endocrine/Metabolic History: Reports: Diabetes, Type II, Obesity/BMI 30+ Hematologic History: Reports: None Immunologic History: Reports: None Oncologic (Cancer) History: Reports: None Dermatologic History: Reports: None - Infectious Disease History Infectious Disease History: Reports: None - Past Surgical History Head Surgeries/Procedures: Reports: None HEENT Surgical History: Reports: None Cardiovascular Surgical History: Reports: None Respiratory Surgical History: Reports: Lung Biopsies GI Surgical History: Reports: None Female Surgical History: Reports: Hysterectomy Endocrine Surgical History: Reports: None Neurological Surgical History: Reports: None Musculoskeletal Surgical History: Reports: None Oncologic Surgical History: Reports: None Dermatological Surgical History: Reports: None Social & Family History - Family History Family Medical History: Noncontributory Cardiac: Reports: Heart Failure, Hypertension, ID Endocrine/Metabolic: Reports: Diabetes, type II - Tobacco Use Tobacco Use Status *Q: Never Tobacco User - Caffeine Use Caffeine Use: Reports: None - Recreational Drug Use Recreational Drug Use: No - Living Situation & Occupation Living situation: Reports: Occupation: Employed ED ROS GENERAL - Review of Systems Review Of Systems: See Below ED EXAM, GENERAL - Physical Exam Exam: See Below #1 Interpretation EKG Interpretation Comments: EKG: Normal sinus rhythm heart rate of [address]-T wave abnormalities Normal axis No evidence of ST elevation ID As interpreted by ER physician: Nael Course - Vital Signs Last Recorded V/S: Last Vital Signs Temp 97.6 F 03/12/20 09:44 Pulse 80 03/12/20 10:55 Resp 20 03/12/20 10:55 BP 163/71 H 03/12/20 10:55 Pulse Ox 94 L 03/12/20 10:55 - Orders/Labs/Meds Orders: Active Orders 24 hr Category Date Time Status Patient Status [ADT] Routine ADT 03/12/20 12:46 Ordered EKG Documentation Completion [RC] STAT Care 03/12/20 09:47 Active CORONAVIRUS COVID-19 EDDIE [MOLEC] Stat Lab 03/12/20 12:15 Received Sodium Chloride 0.9% [Saline Flush] Med 03/12/20 09:47 Active 10 ml FLUSH ASDIRECTED PRN Sodium Chloride 0.9% [Saline Flush] Med 03/12/20 09:47 Active 2.5 ml FLUSH ASDIRECTED PRN Saline Lock Insert [OM.PC] Stat Oth 03/12/20 09:47 Ordered Medication Orders Sodium Chloride (Saline Flush) 10 ml FLUSH ASDIRECTED PRN PRN Reason: Keep Vein Open Sodium Chloride (Saline Flush) 2.5 ml FLUSH ASDIRECTED PRN PRN Reason: Keep Vein Open Labs: Laboratory Tests 03/12/20 03/12/20 03/12/20 Range/Units 09:40 09:40 09:40 WBC 4.63 (4.0-11.0) K/uL RBC 4.29 L (4.30-5.90) M/uL Hgb 11.5 L (12.0-16.0) g/dL Hct 37.1 (36.0-46.0) % MCV 86.5 (80.0-98.0) fL MCH 26.8 L (27.0-32.0) pg MCHC 31.0 (31.0-37.0) g/dL RDW Std Deviation 42.9 (28.0-62.0) fl RDW Coeff of Speedy 14 (11.0-15.0) % Plt Count 146 L (150-400) K/uL MPV 10.60 (7.40-12.00) fL Neut % (Auto) 83.2 H (48.0-80.0) % Lymph % (Auto) 7.8 L (16.0-40.0) % [place] % (Auto) 7.3 (0.0-15.0) % Eos % (Auto) 1.5 (0.0-7.0) % Baso % (Auto) 0.2 (0.0-1.5) % Neut # (Auto) 3.9 (1.4-5.7) K/uL Lymph # (Auto) 0.4 L (0.6-2.4) K/uL [place] # (Auto) 0.3 (0.0-0.8) K/uL Eos # (Auto) 0.1 (0.0-0.7) K/uL Baso # (Auto) 0.0 (0.0-0.1) K/uL Nucleated RBC % 0.0 /100WBC Nucleated RBCs # 0 K/uL D-Dimer, Quantitative 1.28 H (0.0-0.50) mg/L FEU Sodium 141 (136-145) mmol/L Potassium 3.9 (3.5-5.1) mmol/L Chloride 102 (98-107) mmol/L Carbon Dioxide 30.5 (21.0-32.0) mmol/L BUN 22 H (7.0-18.0) mg/dL Creatinine 0.9 (0.6-1.0) mg/dL Est Cr Clr Drug Dosing 75.15 mL/min Estimated GFR (MDRD) > 60.0 ml/min Glucose 113 H (74-106) mg/dL Calcium 9.0 (8.5-10.1) mg/dL Total Bilirubin 0.8 (0.2-1.0) mg/dL AST 15 (15-37) IU/L ALT 34 (14-63) IU/L Alkaline Phosphatase 121 H (46-116) U/L Troponin I < 0.050 (0.000-0.056) ng/mL Total Protein 7.5 (6.4-8.2) g/dL Albumin 3.7 (3.4-5.0) g/dL Globulin 3.8 (2.6-4.0) g/dL Albumin/Globulin Ratio 1.0 (0.9-1.6) Meds: Medications Generic Name Dose Route Start Last Admin Trade Name Freq PRN Reason Stop Dose Admin Sodium Chloride 10 ml 03/12/20 09:47 Saline Flush FLUSH ASDIRECTED PRN Keep Vein Open Sodium Chloride 2.5 ml 03/12/20 09:47 Saline Flush FLUSH ASDIRECTED PRN Keep Vein Open Discontinued Medications Generic Name Dose Route Start Last Admin Trade Name Cliff PRN Reason Stop Dose Admin Iopamidol 75 ml 03/12/20 11:47 03/12/20 11:56 Isovue Multipack-370 (76%) IVPUSH 03/12/20 11:48 75 ml ONETIME STA Administration Departure - Departure Time of Disposition: 12:47 Disposition: Refer to Observation Condition: Good Clinical Impression: Acute coronary syndrome, Atypical chest pain - Discharge Information Referrals: PCP,None [Primary Care Provider] - Forms: ED Department Discharge Sepsis Event Note (ED) - Evaluation Sepsis Screening Result: No Definite Risk - Focused Exam Vital Signs: Vital Signs Temp Pulse Resp BP Pulse Ox 03/12/20 10:55 80 20 163/71 H 94 L 03/12/20 10:40 82 20 173/76 H 95 03/12/20 10:25 79 21 H 165/80 H 95 03/12/20 10:10 80 20 160/71 H 95 03/12/20 09:55 79 18 153/82 H 95 03/12/20 09:44 97.6 F 77 18 161/63 H 97 - My Orders Last 24 Hours: My Active Orders 03/12/20 09:47 EKG Documentation Completion [RC] STAT Sodium Chloride 0.9% [Saline Flush] 10 ml FLUSH ASDIRECTED PRN Sodium Chloride 0.9% [Saline Flush] 2.5 ml FLUSH ASDIRECTED PRN Saline Lock Insert [OM.PC] Stat 03/12/20 12:15 CORONAVIRUS COVID-19 EDDIE [MOLEC] Stat 03/12/20 12:46 Patient Status [ADT] Routine - Assessment/Plan Last 24 Hours: My Active Orders 03/12/20 09:47 EKG Documentation Completion [RC] STAT Sodium Chloride 0.9% [Saline Flush] 10 ml FLUSH ASDIRECTED PRN Sodium Chloride 0.9% [Saline Flush] 2.5 ml FLUSH ASDIRECTED PRN Saline Lock Insert [OM.PC] Stat 03/12/20 12:15 CORONAVIRUS COVID-19 EDDIE [MOLEC] Stat 03/12/20 12:46 Patient Status [ADT] Routine
--- NOTE | 2020-03-12 10:41 | CR ---
INDICATION: Chest pain COMPARISON: May 10, 2019 TECHNIQUE: Synovial portable chest radiograph FINDINGS: TUBES AND LINES: None. HEART AND MEDIASTINUM: Heart size top normal. LUNGS AND PLEURAL SPACES: Given soft tissue attenuation factors, AP technique and low lung volumes, the lungs appear to be clear.There pleural spaces are unremarkable. OSSEOUS STRUCTURES: Age-appropriate appearance. No acute focal finding. IMPRESSION: Top-normal size heart. Given technical factors, the lungs appear to be clear. Dictated by Lenny Bravo MD @ Mar 12 2020 10:38AM Signed by Dr. Lenny Bravo @ Mar 12 2020 10:40AM
[2020-03-12] MEDS ORDERED: Iopamidol 755 MG/ML 500 ML Multipack Bottle IVPUSH STA (11:47)
--- NOTE | 2020-03-12 12:26 | CT ---
INDICATION: Chest pain; elevated D-dimer. COMPARISON: CT coronary angio February 19, 2020; a report available for a chest CT with intravenous contrast dated June 07, 2015; images are not available . Technique: CT angio chest with intravenous contrast; coronal and sagittal reformats. FINDINGS: Evidence of bilateral pleural effusion as well as pericardial effusion. Normal size cardiac silhouette. Abnormal mediastinal and bilateral hilar lymphadenopathy; by report, appears stable when compared to 2016; rule out sarcoidosis. No evidence of pulmonary thromboembolism. no evidence of aortic aneurysm or dissection. Coronary artery calcifications. No discrete abnormal intra pulmonary nodular densities are identified. Limited CT through the upper abdomen is unremarkable. IMPRESSION: 1. No CT evidence of pulmonary thromboembolism. 2. No evidence of aortic aneurysm or dissection. 3. Evidence of bilateral pleural effusion and pericardial effusion. 4. Abnormal mediastinal and bilateral hilar lymphadenopathy; by comparing with the previous report, appears to be stable since 2016; rule out sarcoidosis; comparison with the actual imaging is suggested. Please note that all CT scans at this facility use dose modulation, iterative reconstruction, and/or weight-based dosing when appropriate to reduce radiation dose to as low as reasonably achievable. Dictated by Serafin Santo MD @ Mar 12 2020 12:18PM Signed by Dr. Serafin Santo @ Mar 12 2020 12:25PM
[2020-03-12] MEDS ORDERED: Ondansetron 4 MG/2 ML SDV IVPUSH PRN (14:01)
--- NOTE | 2020-03-12 14:01 | PCM.HP.2 ---
H&P History of Present Illness - General Date of Service: 03/12/20 Admit Problem/Dx: Admission Diagnosis/Problem Admission Diagnosis/Problem Chest pain with acute on chronic CHF exacerbation, acute hypoxic respiratory failure and COVID 19 infection Source of Information: Patient, Old Records (recent [facility] appointment) History Limitations: Reports: No Limitations - History of Present Illness Initial Comments - Free Text/Narative: This 49 year old female with pmh of DM type 2, HTN, HLD, diabetic neuropathy, and CAD with recent stent placement to proximal and mid LAD on 02/26/2020 presents to the ED with complaints of chest and and dyspnea. She reports the dyspnea has been present since her stent placement but progressively worsening along with leg swelling and all over feelings of being swollen. She reports she is short of breath with anything especially with movement and noted when lying flat. She reports the chest pain is mostly a pressure feeling with intermittent sharp pain with exertion that radiates to her back and neck at times. She reports some nausea. She reports a dry cough that started yesterday, with mild chills today but no overt fever. No productive cough. No headache. Feels very tired/fatigued. She denies urinary concerns. No diarrhea, constipation or black or bloody BMs. She used to smoke but quit 16 years ago, no alcohol use and no recreational drug use. Her mother and maternal grandfather of CAD in their late 40s and early 50s. In the ER no leukocytosis noted platelets 146,000 D-dimer mildly elevated at 1.28, BUN 22 creatinine 0.9 troponin was negative chest x-ray showed no acute cardiopulmonary concerns mildly enlarged heart. CTA of her chest was obtained which showed bilateral pleural effusions and a pericardial effusion. No PE noted EKG sinus rhythm heart rate [address] elevation or signs of acute ischemia. Blood pressure is elevated in the ER 160s- 170s/ 80s. Sats 89-90% on RA. Culture returned positive. She will be admitted inpatient for acute hypoxic respiratory failure, acute on chronic CHF and COVID-19 infection. PCP, Dr Koch Chest Pain Score (Numeric/FACES): 6 - Related Data Allergies/Adverse Reactions: Allergies Allergy/AdvReac Type Severity Reaction Status Date / Time No Known Allergies Allergy Verified 03/12/20 09:43 Home Medications: Home Meds Aspirin 81 mg PO DAILY tab.chew 09/08/18 [Rx] Insulin Aspart [NovoLOG] See Protocol SUBCUT TIDAC #1 box 09/08/18 [Rx] Insulin Degludec [Tresiba] 40 unit SQ BEDTIME #1 box 09/08/18 [Rx] Pen Needle, Diabetic [Pen Needle] 1 each MC QID #1 box 09/08/18 [Rx] atorvaSTATin [Lipitor] 80 mg PO BEDTIME #60 tablet 09/08/18 [Rx] lisinopriL [Prinivil] 5 mg PO DAILY #30 tablet 09/08/18 [Rx] Amoxicillin/Clavulanate K [Augmentin 875-125 MG] 1 tab PO BID #19 tablet 07/10/19 [Rx] Sertraline HCl [Zoloft] 200 mg PO DAILY 07/10/19 [History] Past Medical History HEENT History: Reports: None Cardiovascular History: Reports: CAD, Heart Failure, High Cholesterol, Hypertension, Stents. 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: Musculoskeletal History: Reports: Fibromyalgia Neurological History: Reports: CVA, Other (See Below) (carotid stenosis, L ICA) Psychiatric History: Reports: Depression Endocrine/Metabolic History: Reports: Diabetes, Type II, Obesity/BMI 30+ Hematologic History: Reports: None Immunologic History: Reports: None Oncologic (Cancer) History: Reports: None Dermatologic History: Reports: None - Infectious Disease History Infectious Disease History: Reports: None - Past Surgical History Head Surgeries/Procedures: Reports: None HEENT Surgical History: Reports: None Cardiovascular Surgical History: Reports: None Respiratory Surgical History: Reports: Lung Biopsies GI Surgical History: Reports: None Female Surgical History: Reports: Hysterectomy Endocrine Surgical History: Reports: None Neurological Surgical History: Reports: None Musculoskeletal Surgical History: Reports: None Oncologic Surgical History: Reports: None Dermatological Surgical History: Reports: None Social & Family History - Family History Cardiac: Reports: CAD (mother and maternal grandfather late 40s and early 50s from CAD), Heart Failure, Hypertension, MD Endocrine/Metabolic: Reports: Diabetes, type II - Tobacco Use Tobacco Use Status *Q: Former Tobacco User Tobacco Use Within Last Twelve Months: No Month/Year Tobacco Last Used: quit 16 years ago, very light smoker - Caffeine Use Caffeine Use: Reports: None - Alcohol Use Alcohol Use History: No Alcohol Use Frequency: Rarely - Recreational Drug Use Recreational Drug Use: No - Living Situation & Occupation Living situation: Reports: Occupation: Employed H&P Review of Systems - Review of Systems: Review Of Systems: See Below General: Reports: Chills, Malaise, Fatigue HEENT: Denies: Headaches, Sore Throat Pulmonary: Reports: Shortness of Breath Cardiovascular: Reports: Chest Pain, Dyspnea on Exertion, Orthopnea, Edema. Denies: Syncope Gastrointestinal: Reports: Nausea. Denies: Abdominal Pain, Black Stool, Bloody Stool, Vomiting Genitourinary: Reports: No Symptoms. Denies: Dysuria, Frequency, Burning Musculoskeletal: Reports: No Symptoms Skin: Reports: No Symptoms Psychiatric: Reports: No Symptoms Neurological: Reports: No Symptoms Exam - Exam Exam: See Below - Vital Signs Vital Signs: Last Vital Signs Temp 97.6 F 03/12/20 09:44 Pulse 88 03/12/20 13:11 Resp 18 03/12/20 13:11 BP 190/74 H 03/12/20 13:11 Pulse Ox 94 L 03/12/20 13:11 Weight: 153.768 kg - Exam Quality Assessment: Supplemental Oxygen, DVT Prophylaxis General: Alert, Oriented, Cooperative, Mild Distress (mild dyspnea with speech) HEENT: Conjunctiva Clear, Mucosa Moist & [place], Posterior Pharynx Clear Neck: Supple, JVD Lungs: Decreased Breath Sounds (bilaterally), Rales. No: Normal Respiratory Effort (dyspnea with speech and exertion) Cardiovascular: Regular Rate, Regular Rhythm GI/Abdominal Exam: Normal Bowel Sounds, Soft, Non-Tender Extremities: Normal Inspection, Normal Range of Motion, Pedal Edema (+2 edema with mild pitting) Skin: Warm, Dry, Intact Neuro Extensive - Mental Status: Alert, Oriented x3, Normal Mood/Affect Neuro Extensive - Motor, Sensory, Reflexes: CN II-XII Intact Psychiatric: Alert, Normal Affect, Normal Mood - Patient Data Lab Results Last 24 hrs: Laboratory Results - last 24 hr 03/12/20 03/12/20 03/12/20 Range/Units 09:40 09:40 09:40 WBC 4.63 (4.0-11.0) K/uL RBC 4.29 L (4.30-5.90) M/uL Hgb 11.5 L (12.0-16.0) g/dL Hct 37.1 (36.0-46.0) % MCV 86.5 (80.0-98.0) fL MCH 26.8 L (27.0-32.0) pg MCHC 31.0 (31.0-37.0) g/dL RDW Std Deviation 42.9 (28.0-62.0) fl RDW Coeff of Speedy 14 (11.0-15.0) % Plt Count 146 L (150-400) K/uL MPV 10.60 (7.40-12.00) fL Neut % (Auto) 83.2 H (48.0-80.0) % Lymph % (Auto) 7.8 L (16.0-40.0) % [place] % (Auto) 7.3 (0.0-15.0) % Eos % (Auto) 1.5 (0.0-7.0) % Baso % (Auto) 0.2 (0.0-1.5) % Neut # (Auto) 3.9 (1.4-5.7) K/uL Lymph # (Auto) 0.4 L (0.6-2.4) K/uL [place] # (Auto) 0.3 (0.0-0.8) K/uL Eos # (Auto) 0.1 (0.0-0.7) K/uL Baso # (Auto) 0.0 (0.0-0.1) K/uL Nucleated RBC % 0.0 /100WBC Nucleated RBCs # 0 K/uL D-Dimer, Quantitative 1.28 H (0.0-0.50) mg/L FEU Sodium 141 (136-145) mmol/L Potassium 3.9 (3.5-5.1) mmol/L Chloride 102 (98-107) mmol/L Carbon Dioxide 30.5 (21.0-32.0) mmol/L BUN 22 H (7.0-18.0) mg/dL Creatinine 0.9 (0.6-1.0) mg/dL Est Cr Clr Drug Dosing 75.15 mL/min Estimated GFR (MDRD) > 60.0 ml/min Glucose 113 H (74-106) mg/dL Calcium 9.0 (8.5-10.1) mg/dL Total Bilirubin 0.8 (0.2-1.0) mg/dL AST 15 (15-37) IU/L ALT 34 (14-63) IU/L Alkaline Phosphatase 121 H (46-116) U/L Troponin I < 0.050 (0.000-0.056) ng/mL Total Protein 7.5 (6.4-8.2) g/dL Albumin 3.7 (3.4-5.0) g/dL Globulin 3.8 (2.6-4.0) g/dL Albumin/Globulin Ratio 1.0 (0.9-1.6) SARS-CoV-2 RNA (EDDIE) (NEGATIVE) 03/12/20 Range/Units 12:15 WBC (4.0-11.0) K/uL RBC (4.30-5.90) M/uL Hgb (12.0-16.0) g/dL Hct (36.0-46.0) % MCV (80.0-98.0) fL MCH (27.0-32.0) pg MCHC (31.0-37.0) g/dL RDW Std Deviation (28.0-62.0) fl RDW Coeff of Speedy (11.0-15.0) % Plt Count (150-400) K/uL MPV (7.40-12.00) fL Neut % (Auto) (48.0-80.0) % Lymph % (Auto) (16.0-40.0) % [place] % (Auto) (0.0-15.0) % Eos % (Auto) (0.0-7.0) % Baso % (Auto) (0.0-1.5) % Neut # (Auto) (1.4-5.7) K/uL Lymph # (Auto) (0.6-2.4) K/uL [place] # (Auto) (0.0-0.8) K/uL Eos # (Auto) (0.0-0.7) K/uL Baso # (Auto) (0.0-0.1) K/uL Nucleated RBC % /100WBC Nucleated RBCs # K/uL D-Dimer, Quantitative (0.0-0.50) mg/L FEU Sodium (136-145) mmol/L Potassium (3.5-5.1) mmol/L Chloride (98-107) mmol/L Carbon Dioxide (21.0-32.0) mmol/L BUN (7.0-18.0) mg/dL Creatinine (0.6-1.0) mg/dL Est Cr Clr Drug Dosing mL/min Estimated GFR (MDRD) ml/min Glucose (74-106) mg/dL Calcium (8.5-10.1) mg/dL Total Bilirubin (0.2-1.0) mg/dL AST (15-37) IU/L ALT (14-63) IU/L Alkaline Phosphatase (46-116) U/L Troponin I (0.000-0.056) ng/mL Total Protein (6.4-8.2) g/dL Albumin (3.4-5.0) g/dL Globulin (2.6-4.0) g/dL Albumin/Globulin Ratio (0.9-1.6) SARS-CoV-2 RNA (EDDIE) POSITIVE H (NEGATIVE) Result Diagrams: 03/12/20 09:40 03/12/20 09:40 Sepsis Event Note - Evaluation Sepsis Screening Result: No Definite Risk - Focused Exam Vital Signs: Vital Signs Temp Pulse Resp BP Pulse Ox 03/12/20 13:11 88 18 190/74 H 94 L 03/12/20 12:40 87 17 155/91 H 92 L 03/12/20 12:25 89 19 173/78 H 93 L 03/12/20 12:11 89 18 209/97 H 94 L 03/12/20 11:55 86 18 177/84 H 92 L 03/12/20 11:10 82 18 165/77 H 94 L 03/12/20 10:55 80 20 163/71 H 94 L 03/12/20 10:40 82 20 173/76 H 95 03/12/20 10:25 79 21 H 165/80 H 95 03/12/20 10:10 80 20 160/71 H 95 03/12/20 09:55 79 18 153/82 H 95 03/12/20 09:44 97.6 F 77 18 161/63 H 97 - Problem List (1) Acute respiratory failure with hypoxia SNOMED Code(s): 26661101, 540740878 ICD Code: J96.01 - ACUTE RESPIRATORY FAILURE WITH HYPOXIA Status: Acute Current Visit: Yes (2) (HFpEF) heart failure with preserved ejection fraction SNOMED Code(s): 775644507 ICD Code: I50.30 - UNSPECIFIED DIASTOLIC (CONGESTIVE) HEART FAILURE Status: Acute Current Visit: Yes Qualifiers: Heart failure chronicity: acute on chronic Qualified Code(s): I50.33 - Acute on chronic diastolic (congestive) heart failure (3) COVID-19 SNOMED Code(s): 831090012 ICD Code: U07.1 - COVID-19 Status: Acute Current Visit: Yes (4) DM type 2 (diabetes mellitus, type 2) SNOMED Code(s): 94880937 ICD Code: E11.9 - TYPE 2 DIABETES MELLITUS WITHOUT COMPLICATIONS Status: Chronic Current Visit: No Qualifiers: 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 use Diabetes mellitus complication status: with hyperglycemia Qualified Code(s): E11.65 - Type 2 diabetes mellitus with hyperglycemia; Z79.4 - termination clerk (current) use of insulin (5) Obesity SNOMED Code(s): 374218099, 307158522 ICD Code: E66.9 - OBESITY, UNSPECIFIED Status: Chronic Current Visit: No (6) Carotid stenosis Status: Chronic Current Visit: Yes (7) CVA (cerebral vascular accident) SNOMED Code(s): 891568669 ICD Code: I63.9 - CEREBRAL INFARCTION, UNSPECIFIED Status: Acute Current Visit: No Qualifiers: CVA mechanism: unspecified Qualified Code(s): I63.9 - Cerebral infarction, unspecified (8) HTN (hypertension) SNOMED Code(s): 26745439 ICD Code: I10 - ESSENTIAL (PRIMARY) HYPERTENSION Status: Chronic Current Visit: Yes (9) HLD (hyperlipidemia) SNOMED Code(s): 86443733 ICD Code: E78.5 - HYPERLIPIDEMIA, UNSPECIFIED Status: Chronic Current Visit: Yes Problem List Initiated/Reviewed/Updated: Yes Orders Last 24hrs: Active Orders 24 hr Category Date Time Status Admission Status [Patient Status] [ADT] Stat ADT 03/12/20 13:26 Active EKG Documentation Completion [RC] STAT Care 03/12/20 09:47 Active Sodium Chloride 0.9% [Saline Flush] Med 03/12/20 09:47 Active 10 ml FLUSH ASDIRECTED PRN Sodium Chloride 0.9% [Saline Flush] Med 03/12/20 09:47 Active 2.5 ml FLUSH ASDIRECTED PRN Saline Lock Insert [OM.PC] Stat Oth 03/12/20 09:47 Ordered Medication Orders Sodium Chloride (Saline Flush) 10 ml FLUSH ASDIRECTED PRN PRN Reason: Keep Vein Open Sodium Chloride (Saline Flush) 2.5 ml FLUSH ASDIRECTED PRN PRN Reason: Keep Vein Open Assessment/Plan Comment:: 1. Acute on chronic HFpEF with acute hypoxic respiratory failure -Will start on Lasix 40 mg IV twice daily -Low sodium ADA diet with 2 L fluid restriction -Strict I's and O's and daily weights -We will continue her carvedilol 12.5 twice a day lisinopril 40 daily and amlodipine 5 mg once a day. -Recent echo shows left ventricular ejection fraction 55% mild LVH grade 1 diastolic dysfunction. - Obtain BNP - Monitor labwork daily - Dr Haddad notified of admission and symptoms 2. COVID-19 infection -Start Remdesivir 200 mg x 1 dose then 100 mg daily IV x4 days -Dexamethasone 6 mg p.o. daily x10 days -Oxygen therapy to keep sats greater than 92%, wean as possible -Encouraged proning or at least left lateral decubitus position -IS and flutter -Combivent inhaler every 4 hours as needed dyspnea -Lovenox 40 mg subcut daily - Monitor liver function daily - Did discuss Remdesivir treatment with patient including potential allergic reaction as well as liver dysfunction. She verbally agreed with treatment with this. 3. CAD/hypertension/CVA/Carotid stenosis - Continue aspirin and Plavix - Continue statin and Zetia - hx of high grade stenosis L ICA, with TPA administration and CVA in 2019. 4. Dm Type 2 -Uncontrolled, last A1c 9.8 - Hold Fiasp - Tresiba 50 units subcut daily or Lantus is she is unable to bring her own pen in. - NovoLog sliding scale with TIDAC VTE prophylaxis: Lovenox CODE STATUS: FULL CODE Dispo: 2 to 3 days pending improvement
[2020-03-12] MEDS ORDERED: Albuterol/Ipratropium 4 GM Inhalation Spray INH PRN (14:17)
[2020-03-12] MEDS ORDERED: 50% Dextrose in Water 50 ML Syringe IV PRN (14:18)
[2020-03-12] MEDS ORDERED: Glucagon,Human Recombinant 1 MG Vial IM PRN (14:18)
[2020-03-12] MEDS: Enoxaparin 40 MG/0.4 ML Syringe SUBCUT SCH (14:23)
[2020-03-12] MEDS: Furosemide 40 MG/4 ML VIAL IVPUSH SCH (14:24)
[2020-03-12] MEDS: Dexamethasone 4 MG Tab PO SCH (14:24)
[2020-03-12] MEDS ORDERED: Furosemide 40 MG/4 ML VIAL IVPUSH ONE (16:19)
[2020-03-12] MEDS: Insulin Aspart 100 Units/ML 3 ML Pen SUBCUT SCH (18:14)
[2020-03-12] MEDS: Carvedilol 12.5 MG Tab PO SCH (20:55)
[2020-03-12] MEDS ORDERED: Insulin Glargine,Human Rec. Analog 100 Units/ML 3 ML Pen SUBCUT SCH (21:00)
[2020-03-13 05:49] LABS: CARBON DIOXIDE,CO2 29.7 mmol/L (21.0-32.0); POTASSIUM,K 3.7 mmol/L (3.5-5.1)
[2020-03-13] MEDS: Insulin Aspart 100 Units/ML 3 ML Pen SUBCUT SCH ×3 (07:39→18:09)
[2020-03-13] MEDS ORDERED: amLODIPine 5 MG Tab PO SCH (09:00)
--- NOTE | 2020-03-13 09:22 | PCM.PN ---
- General Info Date of Service: 03/13/20 Admission Dx/Problem (Free Text): Admission Diagnosis/Problem Admission Diagnosis/Problem Chest pain with acute on chronic CHF exacerbation, acute hypoxic respiratory failure and COVID 19 infection Subjective Update: Feeling mild improvement with swelling this morning. Her legs feel last painful and tight. No chest pain. Reports significant dry hacking cough overnight. Nonproductive. Has some mild shortness of breath. She has been ambulating back and forth to the bathroom and her bed tolerating this well. No concerns this morning. Functional Status: Reports: Pain Controlled, Tolerating Diet, Ambulating, Urinating - Review of Systems General: Reports: Weakness, Fatigue, Malaise Pulmonary: Reports: Shortness of Breath, Cough. Denies: Sputum, Hemoptysis, Wheezing Cardiovascular: Reports: Dyspnea on Exertion, Edema. Denies: Chest Pain Gastrointestinal: Reports: Nausea. Denies: Abdominal Pain Genitourinary: Reports: No Symptoms. Denies: Dysuria, Frequency, Burning Musculoskeletal: Reports: No Symptoms. Denies: Neck Pain, Shoulder Pain Skin: Reports: No Symptoms Neurological: Reports: No Symptoms Psychiatric: Reports: No Symptoms - Patient Data Vitals - Most Recent: Last Vital Signs Temp 99.2 F 03/13/20 04:20 Pulse 85 03/13/20 04:20 Resp 18 03/13/20 04:20 BP 158/75 H 03/13/20 04:20 Pulse Ox 92 L 03/13/20 04:20 Weight - Most Recent: 149.504 kg I&O - Last 24 Hours: Intake & Output 03/12/20 03/13/20 03/13/20 22:59 06:59 14:59 Intake Total 1600 Output Total 1600 3000 Balance -1600 -1400 Lab Results Last 24 Hours: Laboratory Results - last 24 hr 03/12/20 03/12/20 03/12/20 Range/Units 09:40 09:40 09:40 WBC 4.63 (4.0-11.0) K/uL RBC 4.29 L (4.30-5.90) M/uL Hgb 11.5 L (12.0-16.0) g/dL Hct 37.1 (36.0-46.0) % MCV 86.5 (80.0-98.0) fL MCH 26.8 L (27.0-32.0) pg MCHC 31.0 (31.0-37.0) g/dL RDW Std Deviation 42.9 (28.0-62.0) fl RDW Coeff of Speedy 14 (11.0-15.0) % Plt Count 146 L (150-400) K/uL MPV 10.60 (7.40-12.00) fL Neut % (Auto) 83.2 H (48.0-80.0) % Lymph % (Auto) 7.8 L (16.0-40.0) % Blaine % (Auto) 7.3 (0.0-15.0) % Eos % (Auto) 1.5 (0.0-7.0) % Baso % (Auto) 0.2 (0.0-1.5) % Neut # (Auto) 3.9 (1.4-5.7) K/uL Lymph # (Auto) 0.4 L (0.6-2.4) K/uL Blaine # (Auto) 0.3 (0.0-0.8) K/uL Eos # (Auto) 0.1 (0.0-0.7) K/uL Baso # (Auto) 0.0 (0.0-0.1) K/uL Nucleated RBC % 0.0 /100WBC Nucleated RBCs # 0 K/uL D-Dimer, Quantitative 1.28 H (0.0-0.50) mg/L FEU Sodium 141 (136-145) mmol/L Potassium 3.9 (3.5-5.1) mmol/L Chloride 102 (98-107) mmol/L Carbon Dioxide 30.5 (21.0-32.0) mmol/L BUN 22 H (7.0-18.0) mg/dL Creatinine 0.9 (0.6-1.0) mg/dL Est Cr Clr Drug Dosing 75.15 mL/min Estimated GFR (MDRD) > 60.0 ml/min Glucose 113 H (74-106) mg/dL POC Glucose (60-110) mg/dL Calcium 9.0 (8.5-10.1) mg/dL Magnesium (1.8-2.4) mg/dL Total Bilirubin 0.8 (0.2-1.0) mg/dL AST 15 (15-37) IU/L ALT 34 (14-63) IU/L Alkaline Phosphatase 121 H (46-116) U/L Troponin I < 0.050 (0.000-0.056) ng/mL B-Natriuretic Peptide (<100) PG/ML Total Protein 7.5 (6.4-8.2) g/dL Albumin 3.7 (3.4-5.0) g/dL Globulin 3.8 (2.6-4.0) g/dL Albumin/Globulin Ratio 1.0 (0.9-1.6) SARS-CoV-2 RNA (EDDIE) (NEGATIVE) 03/12/20 03/12/20 03/12/20 Range/Units 09:40 12:15 15:10 WBC (4.0-11.0) K/uL RBC (4.30-5.90) M/uL Hgb (12.0-16.0) g/dL Hct (36.0-46.0) % MCV (80.0-98.0) fL MCH (27.0-32.0) pg MCHC (31.0-37.0) g/dL RDW Std Deviation (28.0-62.0) fl RDW Coeff of Speedy (11.0-15.0) % Plt Count (150-400) K/uL MPV (7.40-12.00) fL Neut % (Auto) (48.0-80.0) % Lymph % (Auto) (16.0-40.0) % Blaine % (Auto) (0.0-15.0) % Eos % (Auto) (0.0-7.0) % Baso % (Auto) (0.0-1.5) % Neut # (Auto) (1.4-5.7) K/uL Lymph # (Auto) (0.6-2.4) K/uL Blaine # (Auto) (0.0-0.8) K/uL Eos # (Auto) (0.0-0.7) K/uL Baso # (Auto) (0.0-0.1) K/uL Nucleated RBC % /100WBC Nucleated RBCs # K/uL D-Dimer, Quantitative (0.0-0.50) mg/L FEU Sodium (136-145) mmol/L Potassium (3.5-5.1) mmol/L Chloride (98-107) mmol/L Carbon Dioxide (21.0-32.0) mmol/L BUN (7.0-18.0) mg/dL Creatinine (0.6-1.0) mg/dL Est Cr Clr Drug Dosing mL/min Estimated GFR (MDRD) ml/min Glucose (74-106) mg/dL POC Glucose (60-110) mg/dL Calcium (8.5-10.1) mg/dL Magnesium (1.8-2.4) mg/dL Total Bilirubin (0.2-1.0) mg/dL AST (15-37) IU/L ALT (14-63) IU/L Alkaline Phosphatase (46-116) U/L Troponin I < 0.050 (0.000-0.056) ng/mL B-Natriuretic Peptide 60 (<100) PG/ML Total Protein (6.4-8.2) g/dL Albumin (3.4-5.0) g/dL Globulin (2.6-4.0) g/dL Albumin/Globulin Ratio (0.9-1.6) SARS-CoV-2 RNA (EDDIE) POSITIVE H (NEGATIVE) 03/12/20 03/12/20 03/12/20 Range/Units 16:04 20:58 21:10 WBC (4.0-11.0) K/uL RBC (4.30-5.90) M/uL Hgb (12.0-16.0) g/dL Hct (36.0-46.0) % MCV (80.0-98.0) fL MCH (27.0-32.0) pg MCHC (31.0-37.0) g/dL RDW Std Deviation (28.0-62.0) fl RDW Coeff of Speedy (11.0-15.0) % Plt Count (150-400) K/uL MPV (7.40-12.00) fL Neut % (Auto) (48.0-80.0) % Lymph % (Auto) (16.0-40.0) % Blaine % (Auto) (0.0-15.0) % Eos % (Auto) (0.0-7.0) % Baso % (Auto) (0.0-1.5) % Neut # (Auto) (1.4-5.7) K/uL Lymph # (Auto) (0.6-2.4) K/uL Blaine # (Auto) (0.0-0.8) K/uL Eos # (Auto) (0.0-0.7) K/uL Baso # (Auto) (0.0-0.1) K/uL Nucleated RBC % /100WBC Nucleated RBCs # K/uL D-Dimer, Quantitative (0.0-0.50) mg/L FEU Sodium (136-145) mmol/L Potassium (3.5-5.1) mmol/L Chloride (98-107) mmol/L Carbon Dioxide (21.0-32.0) mmol/L BUN (7.0-18.0) mg/dL Creatinine (0.6-1.0) mg/dL Est Cr Clr Drug Dosing mL/min Estimated GFR (MDRD) ml/min Glucose (74-106) mg/dL POC Glucose 143 H 249 H (60-110) mg/dL Calcium (8.5-10.1) mg/dL Magnesium (1.8-2.4) mg/dL Total Bilirubin (0.2-1.0) mg/dL AST (15-37) IU/L ALT (14-63) IU/L Alkaline Phosphatase (46-116) U/L Troponin I < 0.050 (0.000-0.056) ng/mL B-Natriuretic Peptide (<100) PG/ML Total Protein (6.4-8.2) g/dL Albumin (3.4-5.0) g/dL Globulin (2.6-4.0) g/dL Albumin/Globulin Ratio (0.9-1.6) SARS-CoV-2 RNA (EDDIE) (NEGATIVE) 03/13/20 03/13/20 03/13/20 Range/Units 05:00 05:00 06:39 WBC 2.75 L (4.0-11.0) K/uL RBC 3.75 L (4.30-5.90) M/uL Hgb 10.0 L (12.0-16.0) g/dL Hct 31.6 L (36.0-46.0) % MCV 84.3 (80.0-98.0) fL MCH 26.7 L (27.0-32.0) pg MCHC 31.6 (31.0-37.0) g/dL RDW Std Deviation 40.7 (28.0-62.0) fl RDW Coeff of Speedy 14 (11.0-15.0) % Plt Count 125 L (150-400) K/uL MPV 10.90 (7.40-12.00) fL Neut % (Auto) 79.6 (48.0-80.0) % Lymph % (Auto) 9.5 L (16.0-40.0) % Blaine % (Auto) 10.9 (0.0-15.0) % Eos % (Auto) 0.0 (0.0-7.0) % Baso % (Auto) 0.0 (0.0-1.5) % Neut # (Auto) 2.2 (1.4-5.7) K/uL Lymph # (Auto) 0.3 L (0.6-2.4) K/uL Blaine # (Auto) 0.3 (0.0-0.8) K/uL Eos # (Auto) 0.0 (0.0-0.7) K/uL Baso # (Auto) 0.0 (0.0-0.1) K/uL Nucleated RBC % 0.0 /100WBC Nucleated RBCs # 0 K/uL D-Dimer, Quantitative (0.0-0.50) mg/L FEU Sodium 138 (136-145) mmol/L Potassium 3.7 (3.5-5.1) mmol/L Chloride 101 (98-107) mmol/L Carbon Dioxide 29.7 (21.0-32.0) mmol/L BUN 22 H (7.0-18.0) mg/dL Creatinine 1.0 (0.6-1.0) mg/dL Est Cr Clr Drug Dosing 67.63 mL/min Estimated GFR (MDRD) 59.4 ml/min Glucose 255 H (74-106) mg/dL POC Glucose 200 H (60-110) mg/dL Calcium 8.7 (8.5-10.1) mg/dL Magnesium 1.7 L (1.8-2.4) mg/dL Total Bilirubin 0.6 (0.2-1.0) mg/dL AST 18 (15-37) IU/L ALT 30 (14-63) IU/L Alkaline Phosphatase 100 (46-116) U/L Troponin I (0.000-0.056) ng/mL B-Natriuretic Peptide (<100) PG/ML Total Protein 6.6 (6.4-8.2) g/dL Albumin 3.2 L (3.4-5.0) g/dL Globulin 3.4 (2.6-4.0) g/dL Albumin/Globulin Ratio 0.9 (0.9-1.6) SARS-CoV-2 RNA (EDDIE) (NEGATIVE) Med Orders - Current: Current Medications Acetaminophen (Tylenol) 650 mg PO Q4H PRN PRN Reason: Pain (Mild 1-3)/fever Albuterol/Ipratropium (Combivent Respimat) 0 gm INH Q4H PRN PRN Reason: Dyspnea Amlodipine Besylate (Norvasc) 5 mg PO DAILY [facility] Carvedilol (Coreg) 12.5 mg PO BID [facility] Last Admin: 03/12/20 20:55 Dose: 12.5 mg Documented by: Dexamethasone (Dexamethasone) 6 mg PO DAILY [facility] Stop: 03/21/20 09:01 Last Admin: 03/12/20 14:24 Dose: 6 mg Documented by: Dextrose/Water (Dextrose 50% In Water) 50 ml IV ASDIRECTED PRN PRN Reason: Hypoglycemia Enoxaparin Sodium (Lovenox) 40 mg SUBCUT Q24H [facility] Last Admin: 03/12/20 14:23 Dose: 40 mg Documented by: Furosemide (Lasix) 40 mg IVPUSH BIDDIURETIC [facility] Last Admin: 03/12/20 14:24 Dose: 40 mg Documented by: Glucagon (Glucagen) 1 mg IM ASDIRECTED PRN PRN Reason: Hypoglycemia Remdesivir 100 mg/ Sodium (Chloride) 100 mls @ 100 mls/hr IV Q24H [facility] Stop: 03/16/20 15:14 Insulin Aspart (Novolog) 0 unit SUBCUT TIDAC [facility]; Protocol Last Admin: 03/13/20 07:39 Dose: 2 units Documented by: Insulin Glargine (Lantus Solostar) 30 units SUBCUT BEDTIME [facility] Last Admin: 03/12/20 20:58 Dose: 30 units Documented by: Lisinopril (Prinivil) 40 mg PO DAILY [facility] Ondansetron HCl (Zofran) 4 mg IVPUSH Q4H PRN PRN Reason: Nausea Sodium Chloride (Saline Flush) 2.5 ml FLUSH ASDIRECTED PRN PRN Reason: Keep Vein Open Last Admin: 03/12/20 10:00 Dose: 2.5 ml Documented by: Discontinued Medications Furosemide (Lasix) 40 mg IVPUSH NOW ONE Stop: 03/12/20 16:20 Last Admin: 03/12/20 16:58 Dose: 40 mg Documented by: Remdesivir 200 mg/ Sodium (Chloride) 250 mls @ 250 mls/hr IV ONETIME ONE Stop: 03/12/20 14:13 Last Admin: 03/12/20 15:54 Dose: 250 mls/hr Documented by: Iopamidol (Isovue Multipack-370 (76%)) 75 ml IVPUSH ONETIME STA Stop: 03/12/20 11:48 Last Admin: 03/12/20 11:56 Dose: 75 ml Documented by: Sodium Chloride (Saline Flush) 10 ml FLUSH ASDIRECTED PRN PRN Reason: Keep Vein Open Last Admin: 03/12/20 10:00 Dose: 10 ml Documented by: Sodium Chloride (Saline Flush) 2.5 ml FLUSH ASDIRECTED PRN PRN Reason: Keep Vein Open Last Admin: 03/12/20 10:00 Dose: 2.5 ml Documented by: - Exam Quality Assessment: Supplemental Oxygen, DVT Prophylaxis (Lovenox) General: Alert, Oriented Neck: Supple, JVD (Improving) Lungs: Decreased Breath Sounds, Rales Cardiovascular: Regular Rate, Regular Rhythm GI/Abdominal Exam: Normal Bowel Sounds, Soft, Non-Tender Extremities: Normal Inspection, Normal Range of Motion, Non-Tender, Pedal Edema (+2 nonpitting with significant improvement from yesterday) Wound/Incisions: Healing Well Neurological: No New Focal Deficit Psy/Mental Status: Alert, Normal Affect, Normal Mood Sepsis Event Note - Evaluation Sepsis Screening Result: No Definite Risk - Focused Exam Vital Signs: Vital Signs Temp Pulse Resp BP Pulse Ox 03/13/20 04:20 99.2 F 85 18 158/75 H 92 L 03/12/20 23:02 97.9 F 82 18 154/65 H 92 L - Problem List & Annotations (1) Acute respiratory failure with hypoxia SNOMED Code(s): 55076185, 000804952 Code(s): J96.01 - ACUTE RESPIRATORY FAILURE WITH HYPOXIA Status: Acute Current Visit: Yes (2) (HFpEF) heart failure with preserved ejection fraction SNOMED Code(s): 758449288 Code(s): I50.30 - UNSPECIFIED DIASTOLIC (CONGESTIVE) HEART FAILURE Status: Acute Current Visit: Yes Qualifiers: Heart failure chronicity: acute on chronic Qualified Code(s): I50.33 - Acute on chronic diastolic (congestive) heart failure (3) COVID-19 SNOMED Code(s): 182956677 Code(s): U07.1 - COVID-19 Status: Acute Current Visit: Yes (4) DM type 2 (diabetes mellitus, type 2) SNOMED Code(s): 90812168 Code(s): E11.9 - TYPE 2 DIABETES MELLITUS WITHOUT COMPLICATIONS Status: Chronic Current Visit: No Qualifiers: Diabetes mellitus intermediate frame tender insulin use: with chcf use Diabetes mellitus complication status: with hyperglycemia Qualified Code(s): E11.65 - Type 2 diabetes mellitus with hyperglycemia; Z79.4 - buttermaker continuous churn (current) use of insulin (5) Obesity SNOMED Code(s): 664380065, 169893771 Code(s): E66.9 - OBESITY, UNSPECIFIED Status: Chronic Current Visit: No (6) Carotid stenosis Status: Chronic Current Visit: Yes (7) CVA (cerebral vascular accident) SNOMED Code(s): 446972842 Code(s): I63.9 - CEREBRAL INFARCTION, UNSPECIFIED Status: Acute Current Visit: No Qualifiers: CVA mechanism: unspecified Qualified Code(s): I63.9 - Cerebral infarction, unspecified (8) HTN (hypertension) SNOMED Code(s): 96819166 Code(s): I10 - ESSENTIAL (PRIMARY) HYPERTENSION Status: Chronic Current Visit: Yes (9) HLD (hyperlipidemia) SNOMED Code(s): 54088478 Code(s): E78.5 - HYPERLIPIDEMIA, UNSPECIFIED Status: Chronic Current Visit: Yes - Problem List Review Problem List Initiated/Reviewed/Updated: Yes - My Orders Last 24 Hours: My Active Orders 03/12/20 Lunch [employer] Diet [DIET] 03/12/20 14:01 Blood Glucose Check, Bedside [RC] TIDMEALS Height and Weight [RC] DAILY Oxygen Therapy [RC] PRN Up With Assistance [RC] ASDIRECTED Up to Chair [RC] ASDIRECTED VTE/DVT Education [RC] DAILY Vital Signs [RC] Q4H Acetaminophen [TylenoL] 650 mg PO Q4H PRN Ondansetron [Zofran] 4 mg IVPUSH Q4H PRN Sodium Chloride 0.9% [Saline Flush] 2.5 ml FLUSH ASDIRECTED PRN Saline Lock Insert [OM.PC] Routine Resuscitation Status Routine 03/12/20 14:14 Intake and Output Strict [RC] Q12H 03/12/20 14:15 Enoxaparin [Lovenox] 40 mg SUBCUT Q24H Furosemide [Lasix] 40 mg IVPUSH BIDDIURETIC dexAMETHasone 6 mg PO DAILY Isolation [COMM] Routine 03/12/20 14:16 Communication Order [RC] DAILY Nurse Communication: Isolation [RC] ASDIRECTED RT Incentive Spirometry [RC] Q1HWA RT Flutter Valve Therapy [RT Acapella] [RESPCARE] Routine 03/12/20 14:17 RT Post Treatment Assessment [RC] Click to Edit RT Pre-Treatment Assessment [RC] Click to Edit Albuterol/Ipratropium [Combivent Respimat] See Dose Instructions INH Q4H PRN 03/12/20 14:18 Dextrose 50% in Water 50 ml IV ASDIRECTED PRN Glucagon,Human Recombinant [GlucaGen] 1 mg IM ASDIRECTED PRN 03/12/20 15:00 Telemetry Monitoring [Cardiac Monitoring] [RC] Q8H 03/12/20 17:00 Insulin Aspart [NovoLOG] See Protocol SUBCUT TIDAC 03/12/20 21:00 Insulin Glarg,Human.Rec.Analog [LantUS Solostar] 30 units SUBCUT BEDTIME carvediloL [Coreg] 12.5 mg PO BID 03/13/20 09:00 amLODIPine [Norvasc] 5 mg PO DAILY lisinopriL [Prinivil] 40 mg PO DAILY 03/13/20 14:15 Remdesivir (Eua) [Remdesivir (EUA)] 100 mg Sodium Chloride 0.9% [Normal Saline] 100 ml IV Q24H 03/14/20 05:11 CBC WITH AUTO DIFF [HEME] AM COMPREHENSIVE METABOLIC PN,CMP [CHEM] AM MAGNESIUM [CHEM] AM 03/15/20 05:11 CBC WITH AUTO DIFF [HEME] AM COMPREHENSIVE METABOLIC PN,CMP [CHEM] AM MAGNESIUM [CHEM] AM - Plan Plan:: This 49-year-old female admitted with acute on chronic HFpEF with acute hypoxic respiratory failure and COVID-19 infection 1. Acute on chronic HFpEF with acute hypoxic respiratory failure -Continue Lasix 40 mg IV twice daily, had great diuresis. -3 L and down in weight. -Low sodium ADA diet with 2 L fluid restriction -Strict I's and O's and daily weights -continue her carvedilol 12.5 twice a day lisinopril 40 daily and amlodipine 5 mg once a day. -Recent echo shows left ventricular ejection fraction 55% mild LVH grade 1 diastolic dysfunction. We will repeat echo today. - BNP 60 - Monitor labwork daily - Dr Haddad notified of admission, agrees with current treatment plan. 2. COVID-19 infection -Continue remdesivir 100 mg daily IV x4 days -Dexamethasone 6 mg p.o. daily x10 days -Oxygen therapy to keep sats greater than 92%, wean as possible -Encouraged proning or at least left lateral decubitus position. Did talk more to her about this today encouraging this as much as possible along with the pathophysiology of how this to help oxygenation. She verbalized understanding -IS and flutter -Combivent inhaler every 4 hours as needed dyspnea -Lovenox 40 mg subcut daily - Monitor liver function daily 3. CAD/hypertension/CVA/Carotid stenosis -Blood pressure elevated this morning Dr. Prasad recommended increasing amlodipine to 10 mg. Will give 5 mg extra to equal 10 total today. - Continue aspirin and Plavix - Continue statin and Zetia - hx of high grade stenosis L ICA, with TPA administration and CVA in 2019. 4. Dm Type 2 -Uncontrolled, last A1c 9.8 - Hold Fiasp - Lantus 50 units subcutaneously in the evening - NovoLog sliding scale with TIDAC VTE prophylaxis: Lovenox CODE STATUS: FULL CODE Dispo: 2 to 3 days pending improvement.
[2020-03-13] MEDS ORDERED: Magnesium Sulfate/Water 2 GM/50 ML Premix Bag IV ONE (09:24)
[2020-03-13] MEDS ORDERED: Potassium Chloride 20 MEQ Tab.ER PO ONE (09:24)
[2020-03-13] MEDS ORDERED: Magnesium Sulfate/Water 2 GM/50 ML BAG IV ONE (09:45)
[2020-03-13] MEDS: Furosemide 40 MG/4 ML VIAL IVPUSH SCH ×2 (09:54→13:07)
[2020-03-13] MEDS: Lisinopril 10 MG Tab PO SCH (09:55)
[2020-03-13] MEDS: Carvedilol 12.5 MG Tab PO SCH ×2 (09:55→21:52)
[2020-03-13] MEDS: Dexamethasone 4 MG Tab PO SCH (09:55)
[2020-03-13] MEDS: Sodium Chloride 0.9% 10 ML Syringe FLUSH PRN (09:56)
[2020-03-13] MEDS: Clopidogrel 75 MG Tab PO SCH (10:15)
[2020-03-13] MEDS: Sertraline 100 MG Tab PO SCH (10:15)
[2020-03-13] MEDS: Aspirin 81 MG Tab.Chew PO SCH (10:15)
[2020-03-13] MEDS ORDERED: amLODIPine 5 MG Tab PO ONE (12:14)
[2020-03-13] MEDS: Benzonatate 100 MG Cap PO PRN ×2 (13:03→21:54)
[2020-03-13] MEDS: Enoxaparin 40 MG/0.4 ML Syringe SUBCUT SCH (14:45)
[2020-03-13] MEDS: REMDESIVIR (EUA) 100 MG in Sodium Chloride 0.9% 100 ML IV SCH (14:46)
[2020-03-13] MEDS: atorvaSTATin 40 MG Tab PO SCH (21:51)
[2020-03-13] MEDS: Acetaminophen 325 MG Tab PO PRN (21:54)
[2020-03-13] MEDS: Insulin Glargine,Human Rec. Analog 100 Units/ML 3 ML Pen SUBCUT SCH (21:58)
[2020-03-14 05:35] LABS: BLOOD UREA NITROGEN,BUN 23 mg/dL (7.0-18.0); CARBON DIOXIDE,CO2 32.6 mmol/L (21.0-32.0); CHLORIDE,CL 98 mmol/L (98-107); GLUCOSE RANDOM 332 mg/dL (74-106); POTASSIUM,K 4.2 mmol/L (3.5-5.1); SODIUM,NA 136 mmol/L (136-145)
[2020-03-14] MEDS: Benzonatate 100 MG Cap PO PRN ×2 (06:13→21:12)
[2020-03-14] MEDS: Insulin Aspart 100 Units/ML 3 ML Pen SUBCUT SCH ×5 (08:12→18:35)
[2020-03-14] MEDS: Omeprazole 20 MG Cap.CR PO SCH (08:15)
[2020-03-14] MEDS: Furosemide 40 MG/4 ML VIAL IVPUSH SCH ×2 (08:15→14:54)
[2020-03-14] MEDS: Sertraline 100 MG Tab PO SCH (08:16)
[2020-03-14] MEDS: Carvedilol 12.5 MG Tab PO SCH ×2 (08:16→21:13)
[2020-03-14] MEDS: amLODIPine 5 MG Tab PO SCH (08:16)
[2020-03-14] MEDS: Dexamethasone 4 MG Tab PO SCH (08:17)
[2020-03-14] MEDS: Aspirin 81 MG Tab.Chew PO SCH (08:17)
[2020-03-14] MEDS: Lisinopril 10 MG Tab PO SCH (08:17)
[2020-03-14] MEDS: Clopidogrel 75 MG Tab PO SCH (08:18)
[2020-03-14] MEDS ORDERED: Aspirin 81 MG Tab.Chew PO SCH (09:00)
--- NOTE | 2020-03-14 09:20 | PCM.PN ---
- General Info Date of Service: 03/14/20 Admission Dx/Problem (Free Text): Admission Diagnosis/Problem Admission Diagnosis/Problem Chest pain with acute on chronic CHF exacerbation, acute hypoxic respiratory failure and COVID 19 infection Subjective Update: Reports she is feeling better today, feels less edematous. Shortness of breath is significantly improved. She is walking to the bathroom without any oxygen. She did sleep with oxygen last night and slept mainly on her stomach. She denies any chest pain. No abdominal pain. Reports that coughing is getting worse remains nonproductive. Mary Rich are helping intermediately. Feels tired and fatigued. Functional Status: Reports: Pain Controlled, Tolerating Diet, Ambulating, Urinating - Review of Systems General: Reports: Fatigue, Malaise HEENT: Denies: Headaches, Sore Throat, Visual Changes Pulmonary: Reports: Shortness of Breath, Cough. Denies: Sputum, Hemoptysis, Wheezing Cardiovascular: Reports: Dyspnea on Exertion (Continues to improve), Edema (Improving). Denies: Chest Pain, Palpitations Gastrointestinal: Reports: No Symptoms. Denies: Abdominal Pain, Nausea, Vomiting Genitourinary: Reports: No Symptoms. Denies: Dysuria, Frequency Musculoskeletal: Reports: No Symptoms Skin: Reports: No Symptoms Neurological: Reports: No Symptoms Psychiatric: Reports: No Symptoms - Patient Data Vitals - Most Recent: Last Vital Signs Temp 98.9 F 03/14/20 08:00 Pulse 67 03/14/20 08:16 Resp 20 03/14/20 08:00 BP 159/79 H 03/14/20 08:17 Pulse Ox 94 L 03/14/20 08:00 Weight - Most Recent: 146.51 kg I&O - Last 24 Hours: Intake & Output 03/13/20 03/14/20 03/14/20 22:59 06:59 14:59 Intake Total 1640 1200 Output Total 3700 2700 Balance -2060 -1500 Lab Results Last 24 Hours: Laboratory Results - last 24 hr 03/13/20 03/13/20 03/14/20 Range/Units 12:16 18:05 05:03 WBC 2.16 L (4.0-11.0) K/uL RBC 3.89 L (4.30-5.90) M/uL Hgb 10.3 L (12.0-16.0) g/dL Hct 32.8 L (36.0-46.0) % MCV 84.3 (80.0-98.0) fL MCH 26.5 L (27.0-32.0) pg MCHC 31.4 (31.0-37.0) g/dL RDW Std Deviation 40.3 (28.0-62.0) fl RDW Coeff of Speedy 14 (11.0-15.0) % Plt Count 124 L (150-400) K/uL MPV 10.80 (7.40-12.00) fL Neut % (Auto) 70.4 (48.0-80.0) % Lymph % (Auto) 13.4 L (16.0-40.0) % Grant % (Auto) 16.2 H (0.0-15.0) % Eos % (Auto) 0.0 (0.0-7.0) % Baso % (Auto) 0.0 (0.0-1.5) % Neut # (Auto) 1.5 (1.4-5.7) K/uL Lymph # (Auto) 0.3 L (0.6-2.4) K/uL Grant # (Auto) 0.4 (0.0-0.8) K/uL Eos # (Auto) 0.0 (0.0-0.7) K/uL Baso # (Auto) 0.0 (0.0-0.1) K/uL Nucleated RBC % 0.0 /100WBC Nucleated RBCs # 0 K/uL Sodium (136-145) mmol/L Potassium (3.5-5.1) mmol/L Chloride (98-107) mmol/L Carbon Dioxide (21.0-32.0) mmol/L BUN (7.0-18.0) mg/dL Creatinine (0.6-1.0) mg/dL Est Cr Clr Drug Dosing mL/min Estimated GFR (MDRD) ml/min Glucose (74-106) mg/dL POC Glucose 267 H 301 H (60-110) mg/dL Calcium (8.5-10.1) mg/dL Magnesium (1.8-2.4) mg/dL Total Bilirubin (0.2-1.0) mg/dL AST (15-37) IU/L ALT (14-63) IU/L Alkaline Phosphatase (46-116) U/L Total Protein (6.4-8.2) g/dL Albumin (3.4-5.0) g/dL Globulin (2.6-4.0) g/dL Albumin/Globulin Ratio (0.9-1.6) 03/14/20 03/14/20 Range/Units 05:03 06:33 WBC (4.0-11.0) K/uL RBC (4.30-5.90) M/uL Hgb (12.0-16.0) g/dL Hct (36.0-46.0) % MCV (80.0-98.0) fL MCH (27.0-32.0) pg MCHC (31.0-37.0) g/dL RDW Std Deviation (28.0-62.0) fl RDW Coeff of Speedy (11.0-15.0) % Plt Count (150-400) K/uL MPV (7.40-12.00) fL Neut % (Auto) (48.0-80.0) % Lymph % (Auto) (16.0-40.0) % Grant % (Auto) (0.0-15.0) % Eos % (Auto) (0.0-7.0) % Baso % (Auto) (0.0-1.5) % Neut # (Auto) (1.4-5.7) K/uL Lymph # (Auto) (0.6-2.4) K/uL Grant # (Auto) (0.0-0.8) K/uL Eos # (Auto) (0.0-0.7) K/uL Baso # (Auto) (0.0-0.1) K/uL Nucleated RBC % /100WBC Nucleated RBCs # K/uL Sodium 136 (136-145) mmol/L Potassium 4.2 (3.5-5.1) mmol/L Chloride 98 (98-107) mmol/L Carbon Dioxide 32.6 H (21.0-32.0) mmol/L BUN 23 H (7.0-18.0) mg/dL Creatinine 0.9 (0.6-1.0) mg/dL Est Cr Clr Drug Dosing 75.15 mL/min Estimated GFR (MDRD) > 60.0 ml/min Glucose 332 H (74-106) mg/dL POC Glucose 337 H (60-110) mg/dL Calcium 8.7 (8.5-10.1) mg/dL Magnesium 1.9 (1.8-2.4) mg/dL Total Bilirubin 0.5 (0.2-1.0) mg/dL AST 22 (15-37) IU/L ALT 36 (14-63) IU/L Alkaline Phosphatase 107 (46-116) U/L Total Protein 6.9 (6.4-8.2) g/dL Albumin 3.3 L (3.4-5.0) g/dL Globulin 3.6 (2.6-4.0) g/dL Albumin/Globulin Ratio 0.9 (0.9-1.6) Med Orders - Current: Current Medications Acetaminophen (Tylenol) 650 mg PO Q4H PRN PRN Reason: Pain (Mild 1-3)/fever Last Admin: 03/13/20 21:54 Dose: 650 mg Documented by: Albuterol/Ipratropium (Combivent Respimat) 0 gm INH Q4H PRN PRN Reason: Dyspnea Amlodipine Besylate (Norvasc) 10 mg PO DAILY [facility] Last Admin: 03/14/20 08:16 Dose: 10 mg Documented by: Aspirin (Aspirin) 81 mg PO DAILY [facility] Last Admin: 03/14/20 08:17 Dose: 81 mg Documented by: Atorvastatin Calcium (Lipitor) 80 mg PO BEDTIME [facility] Last Admin: 03/13/20 21:51 Dose: 80 mg Documented by: Benzonatate (Tessalon Perles) 200 mg PO TID PRN PRN Reason: Cough Last Admin: 03/14/20 06:13 Dose: 200 mg Documented by: Carvedilol (Coreg) 25 mg PO BID [facility] Last Admin: 03/14/20 08:16 Dose: 25 mg Documented by: Clopidogrel Bisulfate (Plavix) 75 mg PO DAILY [facility] Last Admin: 03/14/20 08:18 Dose: 75 mg Documented by: Dexamethasone (Dexamethasone) 6 mg PO DAILY [facility] Stop: 03/21/20 09:01 Last Admin: 03/14/20 08:17 Dose: 6 mg Documented by: Dextrose/Water (Dextrose 50% In Water) 50 ml IV ASDIRECTED PRN PRN Reason: Hypoglycemia Enoxaparin Sodium (Lovenox) 40 mg SUBCUT Q24H [facility] Last Admin: 03/13/20 14:45 Dose: 40 mg Documented by: Furosemide (Lasix) 40 mg IVPUSH BIDDIURETIC [facility] Last Admin: 03/14/20 08:15 Dose: 40 mg Documented by: Glucagon (Glucagen) 1 mg IM ASDIRECTED PRN PRN Reason: Hypoglycemia Remdesivir 100 mg/ Sodium (Chloride) 100 mls @ 100 mls/hr IV Q24H [facility] Stop: 03/16/20 15:14 Last Admin: 03/13/20 14:46 Dose: 100 mls/hr Documented by: Insulin Aspart (Novolog) 0 unit SUBCUT TIDAC [facility]; Protocol Last Admin: 03/14/20 08:12 Dose: 4 units Documented by: Insulin Aspart (Novolog) 8 unit SUBCUT TIDAC [facility] Insulin Glargine (Lantus Solostar) 50 units SUBCUT BEDTIME [facility] Last Admin: 03/13/20 21:58 Dose: 50 unit Documented by: Lisinopril (Prinivil) 40 mg PO DAILY [facility] Last Admin: 03/14/20 08:17 Dose: 40 mg Documented by: Omeprazole (Omeprazole) 40 mg PO ACBREAKFAST [facility] Last Admin: 03/14/20 08:15 Dose: 40 mg Documented by: Ondansetron HCl (Zofran) 4 mg IVPUSH Q4H PRN PRN Reason: Nausea Sertraline HCl (Zoloft) 200 mg PO DAILY [facility] Last Admin: 03/14/20 08:16 Dose: 200 mg Documented by: Sodium Chloride (Saline Flush) 2.5 ml FLUSH ASDIRECTED PRN PRN Reason: Keep Vein Open Last Admin: 03/12/20 10:00 Dose: 2.5 ml Documented by: Discontinued Medications Amlodipine Besylate (Norvasc) 5 mg PO DAILY [facility] Last Admin: 03/13/20 09:55 Dose: 5 mg Documented by: Amlodipine Besylate (Norvasc) 5 mg PO ONETIME ONE Stop: 03/13/20 12:15 Last Admin: 03/13/20 13:02 Dose: 5 mg Documented by: Aspirin (Aspirin) 81 mg PO DAILY [facility] Carvedilol (Coreg) 12.5 mg PO BID [facility] Last Admin: 03/13/20 09:55 Dose: 12.5 mg Documented by: Furosemide (Lasix) 40 mg IVPUSH NOW ONE Stop: 03/12/20 16:20 Last Admin: 03/12/20 16:58 Dose: 40 mg Documented by: Remdesivir 200 mg/ Sodium (Chloride) 250 mls @ 250 mls/hr IV ONETIME ONE Stop: 03/12/20 14:13 Last Admin: 03/12/20 15:54 Dose: 250 mls/hr Documented by: Magnesium Sulfate (Magnesium Sulfate In Water Premix) 2 gm in 50 mls @ 50 mls/hr IV ONETIME ONE Stop: 03/13/20 10:44 Last Admin: 03/13/20 10:07 Dose: 50 mls/hr Documented by: Insulin Glargine (Lantus Solostar) 30 units SUBCUT BEDTIME [facility] Last Admin: 03/12/20 20:58 Dose: 30 units Documented by: Iopamidol (Isovue Multipack-370 (76%)) 75 ml IVPUSH ONETIME STA Stop: 03/12/20 11:48 Last Admin: 03/12/20 11:56 Dose: 75 ml Documented by: Potassium Chloride (Klor-Con M20) 40 meq PO ONETIME ONE Stop: 03/13/20 09:25 Last Admin: 03/13/20 10:06 Dose: 40 meq Documented by: Sodium Chloride (Saline Flush) 10 ml FLUSH ASDIRECTED PRN PRN Reason: Keep Vein Open Last Admin: 03/13/20 09:56 Dose: 10 ml Documented by: Sodium Chloride (Saline Flush) 2.5 ml FLUSH ASDIRECTED PRN PRN Reason: Keep Vein Open Last Admin: 03/12/20 10:00 Dose: 2.5 ml Documented by: - Exam General: Alert, Oriented, Cooperative, No Acute Distress Lungs: Normal Respiratory Effort, Decreased Breath Sounds Cardiovascular: Regular Rate, Regular Rhythm GI/Abdominal Exam: Normal Bowel Sounds, Soft, Non-Tender Extremities: Normal Inspection, Normal Range of Motion, Non-Tender, Pedal Edema (Continues to improve, +1 nonpitting) Neurological: No New Focal Deficit Psy/Mental Status: Alert, Normal Affect, Normal Mood Sepsis Event Note - Evaluation Sepsis Screening Result: No Definite Risk - Focused Exam Vital Signs: Vital Signs Temp Pulse Pulse Resp BP BP Pulse Ox 03/14/20 08:17 159/79 H 03/14/20 08:16 67 159/79 H 03/14/20 08:00 98.9 F 67 20 159/79 H 94 L 03/14/20 04:00 97.0 F 70 20 160/82 H 95 03/14/20 00:00 97.6 F 73 20 147/61 H 93 L 03/13/20 21:52 70 159/59 H - Problem List & Annotations (1) Acute respiratory failure with hypoxia SNOMED Code(s): 08643916, 646117851 Code(s): J96.01 - ACUTE RESPIRATORY FAILURE WITH HYPOXIA Status: Acute Current Visit: Yes (2) (HFpEF) heart failure with preserved ejection fraction SNOMED Code(s): 265760490 Code(s): I50.30 - UNSPECIFIED DIASTOLIC (CONGESTIVE) HEART FAILURE Status: Acute Current Visit: Yes Qualifiers: Heart failure chronicity: acute on chronic Qualified Code(s): I50.33 - Acute on chronic diastolic (congestive) heart failure (3) COVID-19 SNOMED Code(s): 572315079 Code(s): U07.1 - COVID-19 Status: Acute Current Visit: Yes (4) DM type 2 (diabetes mellitus, type 2) SNOMED Code(s): 35395698 Code(s): E11.9 - TYPE 2 DIABETES MELLITUS WITHOUT COMPLICATIONS Status: Chronic Current Visit: No Qualifiers: Diabetes mellitus exterminator helper termite insulin use: with exterminator helper termite use Diabetes mellitus complication status: with hyperglycemia Qualified Code(s): E11.65 - Type 2 diabetes mellitus with hyperglycemia; Z79.4 - intermediate teacher (current) use of insulin (5) Obesity SNOMED Code(s): 644887644, 363747755 Code(s): E66.9 - OBESITY, UNSPECIFIED Status: Chronic Current Visit: No (6) Carotid stenosis Status: Chronic Current Visit: Yes (7) CVA (cerebral vascular accident) SNOMED Code(s): 557198512 Code(s): I63.9 - CEREBRAL INFARCTION, UNSPECIFIED Status: Acute Current Visit: No Qualifiers: CVA mechanism: unspecified Qualified Code(s): I63.9 - Cerebral infarction, unspecified (8) HTN (hypertension) SNOMED Code(s): 14513537 Code(s): I10 - ESSENTIAL (PRIMARY) HYPERTENSION Status: Chronic Current Visit: Yes (9) HLD (hyperlipidemia) SNOMED Code(s): 39076580 Code(s): E78.5 - HYPERLIPIDEMIA, UNSPECIFIED Status: Chronic Current Visit: Yes - Problem List Review Problem List Initiated/Reviewed/Updated: Yes - My Orders Last 24 Hours: My Active Orders 03/13/20 09:00 lisinopriL [Prinivil] 40 mg PO DAILY 03/13/20 09:22 Benzonatate [Tessalon Perles] 200 mg PO TID PRN 03/13/20 09:58 Aspirin 81 mg PO DAILY 03/13/20 10:00 Clopidogrel [Plavix] 75 mg PO DAILY Sertraline [Zoloft] 200 mg PO DAILY 03/13/20 11:52 Echo Comp wo Cont [US] Urgent 03/13/20 14:15 Remdesivir (Eua) [Remdesivir (EUA)] 100 mg Sodium Chloride 0.9% [Normal Saline] 100 ml IV Q24H 03/13/20 21:00 Insulin Glarg,Human.Rec.Analog [LantUS Solostar] 50 units SUBCUT BEDTIME atorvaSTATin [Lipitor] 80 mg PO BEDTIME carvediloL [Coreg] 25 mg PO BID 03/14/20 07:30 Omeprazole 40 mg PO ACBREAKFAST 03/14/20 09:00 amLODIPine [Norvasc] 10 mg PO DAILY 03/14/20 09:14 Codeine/guaiFENesin [Robitussin AC] 5 ml PO Q6H PRN 03/14/20 11:30 Insulin Aspart [NovoLOG] 8 unit SUBCUT TIDAC 03/15/20 05:11 CBC WITH AUTO DIFF [HEME] AM COMPREHENSIVE METABOLIC PN,CMP [CHEM] AM MAGNESIUM [CHEM] AM - Plan Plan:: This 49-year-old female admitted with acute on chronic HFpEF with acute hypoxic respiratory failure and COVID-19 infection 1. Acute on chronic HFpEF -Continue Lasix 40 mg IV twice daily, continues to have good diuresis -Low sodium ADA diet with 2 L fluid restriction -Strict I's and O's and daily weights -carvedilol increased to 25 mg twice a day lisinopril 40 daily and amlodipine also increased to 10 mg once a day. -Echo pending - Monitor labwork daily - Dr Haddad notified of admission, agrees with current treatment plan. -Acute hypoxic respiratory failure resolved 2. COVID-19 infection -Feels more fatigue and coughing is worsening. Shortness of breath is stable. Currently on room air. -Continue remdesivir 100 mg daily IV x4 days -Dexamethasone 6 mg p.o. daily x10 days -Oxygen therapy to keep sats greater than 92%, wean as possible -Encouraged proning or at least left lateral decubitus position. Did talk more to her about this today encouraging this as much as possible along with the pathophysiology of how this to help oxygenation. She verbalized understanding -IS and flutter -Combivent inhaler every 4 hours as needed dyspnea -Lovenox 40 mg subcut daily - Monitor liver function daily -We will add guaifenesin with codeine as needed cough along with Tessalon Perles 3. CAD/hypertension/CVA/Carotid stenosis -Continue carvedilol 25 mg twice daily lisinopril 40 daily and amlodipine 10 mg daily for HTN - Continue aspirin and Plavix - Continue statin and Zetia - hx of high grade stenosis L ICA, with TPA administration and CVA in 2019. 4. Dm Type 2 -Blood sugars elevated likely secondary to dexamethasone -We will give 8 units with each meal plus sliding scale NovoLog -Uncontrolled, last A1c 9.8 - Hold Fiasp - Lantus 50 units subcutaneously in the evening - NovoLog sliding scale with TIDAC VTE prophylaxis: Lovenox CODE STATUS: FULL CODE Dispo: 2 to 3 days pending improvement.
[2020-03-14] MEDS: Codeine/guaiFENesin 10-100 MG/5 ML Syrup 5 ML Cup PO PRN (11:33)
[2020-03-14] MEDS: Enoxaparin 40 MG/0.4 ML Syringe SUBCUT SCH (14:54)
[2020-03-14] MEDS: REMDESIVIR (EUA) 100 MG in Sodium Chloride 0.9% 100 ML IV SCH (15:17)
[2020-03-14] MEDS: atorvaSTATin 40 MG Tab PO SCH (21:12)
[2020-03-14] MEDS: Acetaminophen 325 MG Tab PO PRN (21:12)
[2020-03-14] MEDS: Insulin Glargine,Human Rec. Analog 100 Units/ML 3 ML Pen SUBCUT SCH (21:14)
[2020-03-15] MEDS: Codeine/guaiFENesin 10-100 MG/5 ML Syrup 5 ML Cup PO PRN ×2 (04:02→18:59)
[2020-03-15 06:42] LABS: BLOOD UREA NITROGEN,BUN 25 mg/dL (7.0-18.0); CARBON DIOXIDE,CO2 33.8 mmol/L (21.0-32.0); CHLORIDE,CL 96 mmol/L (98-107); GLUCOSE RANDOM 253 mg/dL (74-106); POTASSIUM,K 3.8 mmol/L (3.5-5.1); SODIUM,NA 134 mmol/L (136-145)
[2020-03-15] MEDS: Insulin Aspart 100 Units/ML 3 ML Pen SUBCUT SCH ×6 (08:17→17:55)
[2020-03-15] MEDS: Furosemide 40 MG/4 ML VIAL IVPUSH SCH ×2 (08:20→14:44)
[2020-03-15] MEDS: Omeprazole 20 MG Cap.CR PO SCH (08:20)
[2020-03-15] MEDS: Sertraline 100 MG Tab PO SCH (10:03)
[2020-03-15] MEDS: amLODIPine 5 MG Tab PO SCH (10:03)
[2020-03-15] MEDS: Clopidogrel 75 MG Tab PO SCH (10:04)
[2020-03-15] MEDS: Carvedilol 12.5 MG Tab PO SCH ×2 (10:04→20:27)
[2020-03-15] MEDS: Lisinopril 10 MG Tab PO SCH (10:04)
[2020-03-15] MEDS: Dexamethasone 4 MG Tab PO SCH (10:04)
[2020-03-15] MEDS: Aspirin 81 MG Tab.Chew PO SCH (10:05)
[2020-03-15] MEDS: Benzonatate 100 MG Cap PO PRN ×2 (10:34→20:26)
[2020-03-15] MEDS: Enoxaparin 40 MG/0.4 ML Syringe SUBCUT SCH (14:44)
[2020-03-15] MEDS: REMDESIVIR (EUA) 100 MG in Sodium Chloride 0.9% 100 ML IV SCH (14:45)
--- NOTE | 2020-03-15 15:00 | PCM.PN ---
- General Info Date of Service: 03/15/20 - Review of Systems Systems Review Comment:: shortness of breath has improved, reports nonproductive cough - Patient Data Vitals - Most Recent: Last Vital Signs Temp 36.9 C 03/15/20 08:00 Pulse 84 03/15/20 10:04 Resp 18 03/15/20 08:00 BP 149/82 H 03/15/20 10:04 Pulse Ox 96 03/15/20 08:00 Weight - Most Recent: 142.8 kg I&O - Last 24 Hours: Intake & Output 03/14/20 03/15/20 03/15/20 22:59 06:59 14:59 Intake Total 1500 700 Output Total 4200 1500 Balance -2700 -800 Lab Results Last 24 Hours: Laboratory Results - last 24 hr 03/14/20 03/15/20 03/15/20 Range/Units 18:32 05:30 05:30 WBC 2.98 L (4.0-11.0) K/uL RBC 3.98 L (4.30-5.90) M/uL Hgb 10.6 L (12.0-16.0) g/dL Hct 33.0 L (36.0-46.0) % MCV 82.9 (80.0-98.0) fL MCH 26.6 L (27.0-32.0) pg MCHC 32.1 (31.0-37.0) g/dL RDW Std Deviation 39.6 (28.0-62.0) fl RDW Coeff of Speedy 13 (11.0-15.0) % Plt Count 142 L (150-400) K/uL MPV 11.00 (7.40-12.00) fL Neut % (Auto) 69.8 (48.0-80.0) % Lymph % (Auto) 15.8 L (16.0-40.0) % Toole % (Auto) 14.4 (0.0-15.0) % Eos % (Auto) 0.0 (0.0-7.0) % Baso % (Auto) 0.0 (0.0-1.5) % Neut # (Auto) 2.1 (1.4-5.7) K/uL Lymph # (Auto) 0.5 L (0.6-2.4) K/uL Toole # (Auto) 0.4 (0.0-0.8) K/uL Eos # (Auto) 0.0 (0.0-0.7) K/uL Baso # (Auto) 0.0 (0.0-0.1) K/uL Nucleated RBC % 0.0 /100WBC Nucleated RBCs # 0 K/uL Sodium 134 L (136-145) mmol/L Potassium 3.8 (3.5-5.1) mmol/L Chloride 96 L (98-107) mmol/L Carbon Dioxide 33.8 H (21.0-32.0) mmol/L BUN 25 H (7.0-18.0) mg/dL Creatinine 0.8 (0.6-1.0) mg/dL Est Cr Clr Drug Dosing 84.54 mL/min Estimated GFR (MDRD) > 60.0 ml/min Glucose 253 H (74-106) mg/dL POC Glucose 396 H (60-110) mg/dL Calcium 8.5 (8.5-10.1) mg/dL Magnesium 1.8 (1.8-2.4) mg/dL Total Bilirubin 0.5 (0.2-1.0) mg/dL AST 21 (15-37) IU/L ALT 34 (14-63) IU/L Alkaline Phosphatase 102 (46-116) U/L Total Protein 6.9 (6.4-8.2) g/dL Albumin 3.4 (3.4-5.0) g/dL Globulin 3.5 (2.6-4.0) g/dL Albumin/Globulin Ratio 1.0 (0.9-1.6) 03/15/20 03/15/20 Range/Units 06:18 12:30 WBC (4.0-11.0) K/uL RBC (4.30-5.90) M/uL Hgb (12.0-16.0) g/dL Hct (36.0-46.0) % MCV (80.0-98.0) fL MCH (27.0-32.0) pg MCHC (31.0-37.0) g/dL RDW Std Deviation (28.0-62.0) fl RDW Coeff of Speedy (11.0-15.0) % Plt Count (150-400) K/uL MPV (7.40-12.00) fL Neut % (Auto) (48.0-80.0) % Lymph % (Auto) (16.0-40.0) % Toole % (Auto) (0.0-15.0) % Eos % (Auto) (0.0-7.0) % Baso % (Auto) (0.0-1.5) % Neut # (Auto) (1.4-5.7) K/uL Lymph # (Auto) (0.6-2.4) K/uL Toole # (Auto) (0.0-0.8) K/uL Eos # (Auto) (0.0-0.7) K/uL Baso # (Auto) (0.0-0.1) K/uL Nucleated RBC % /100WBC Nucleated RBCs # K/uL Sodium (136-145) mmol/L Potassium (3.5-5.1) mmol/L Chloride (98-107) mmol/L Carbon Dioxide (21.0-32.0) mmol/L BUN (7.0-18.0) mg/dL Creatinine (0.6-1.0) mg/dL Est Cr Clr Drug Dosing mL/min Estimated GFR (MDRD) ml/min Glucose (74-106) mg/dL POC Glucose 237 H 136 H (60-110) mg/dL Calcium (8.5-10.1) mg/dL Magnesium (1.8-2.4) mg/dL Total Bilirubin (0.2-1.0) mg/dL AST (15-37) IU/L ALT (14-63) IU/L Alkaline Phosphatase (46-116) U/L Total Protein (6.4-8.2) g/dL Albumin (3.4-5.0) g/dL Globulin (2.6-4.0) g/dL Albumin/Globulin Ratio (0.9-1.6) Med Orders - Current: Current Medications Acetaminophen (Tylenol) 650 mg PO Q4H PRN PRN Reason: Pain (Mild 1-3)/fever Last Admin: 03/14/20 21:12 Dose: 650 mg Documented by: Albuterol/Ipratropium (Combivent Respimat) 0 gm INH Q4H PRN PRN Reason: Dyspnea Amlodipine Besylate (Norvasc) 10 mg PO DAILY [facility] Last Admin: 03/15/20 10:03 Dose: 10 mg Documented by: Aspirin (Aspirin) 81 mg PO DAILY [facility] Last Admin: 03/15/20 10:05 Dose: 81 mg Documented by: Atorvastatin Calcium (Lipitor) 80 mg PO BEDTIME [facility] Last Admin: 03/14/20 21:12 Dose: 80 mg Documented by: Benzonatate (Tessalon Perles) 200 mg PO TID PRN PRN Reason: Cough Last Admin: 03/15/20 10:34 Dose: 200 mg Documented by: Carvedilol (Coreg) 25 mg PO BID [facility] Last Admin: 03/15/20 10:04 Dose: 25 mg Documented by: Clopidogrel Bisulfate (Plavix) 75 mg PO DAILY [facility] Last Admin: 03/15/20 10:04 Dose: 75 mg Documented by: Dexamethasone (Dexamethasone) 6 mg PO DAILY [facility] Stop: 03/21/20 09:01 Last Admin: 03/15/20 10:04 Dose: 6 mg Documented by: Dextrose/Water (Dextrose 50% In Water) 50 ml IV ASDIRECTED PRN PRN Reason: Hypoglycemia Enoxaparin Sodium (Lovenox) 40 mg SUBCUT Q24H [facility] Last Admin: 03/15/20 14:44 Dose: 40 mg Documented by: Furosemide (Lasix) 40 mg IVPUSH BIDDIURETIC [facility] Last Admin: 03/15/20 14:44 Dose: 40 mg Documented by: Glucagon (Glucagen) 1 mg IM ASDIRECTED PRN PRN Reason: Hypoglycemia Guaifenesin/Codeine Phosphate (Robitussin Ac) 5 ml PO Q6H PRN PRN Reason: Cough Last Admin: 03/15/20 04:02 Dose: 5 ml Documented by: Remdesivir 100 mg/ Sodium (Chloride) 100 mls @ 100 mls/hr IV Q24H [facility] Stop: 03/16/20 15:14 Last Admin: 03/15/20 14:45 Dose: 100 mls/hr Documented by: Insulin Aspart (Novolog) 0 unit SUBCUT TIDAC [facility]; Protocol Last Admin: 03/15/20 12:55 Dose: Not Given Documented by: Insulin Aspart (Novolog) 8 unit SUBCUT TIDAC [facility] Last Admin: 03/15/20 13:02 Dose: 8 unit Documented by: Insulin Glargine (Lantus Solostar) 50 units SUBCUT BEDTIME [facility] Last Admin: 03/14/20 21:14 Dose: 50 unit Documented by: Lisinopril (Prinivil) 40 mg PO DAILY [facility] Last Admin: 03/15/20 10:04 Dose: 40 mg Documented by: Omeprazole (Omeprazole) 40 mg PO ACBREAKFAST [facility] Last Admin: 03/15/20 08:20 Dose: 40 mg Documented by: Ondansetron HCl (Zofran) 4 mg IVPUSH Q4H PRN PRN Reason: Nausea Sertraline HCl (Zoloft) 200 mg PO DAILY [facility] Last Admin: 03/15/20 10:03 Dose: 200 mg Documented by: Sodium Chloride (Saline Flush) 2.5 ml FLUSH ASDIRECTED PRN PRN Reason: Keep Vein Open Last Admin: 03/12/20 10:00 Dose: 2.5 ml Documented by: Discontinued Medications Amlodipine Besylate (Norvasc) 5 mg PO DAILY [facility] Last Admin: 03/13/20 09:55 Dose: 5 mg Documented by: Amlodipine Besylate (Norvasc) 5 mg PO ONETIME ONE Stop: 03/13/20 12:15 Last Admin: 03/13/20 13:02 Dose: 5 mg Documented by: Aspirin (Aspirin) 81 mg PO DAILY [facility] Carvedilol (Coreg) 12.5 mg PO BID [facility] Last Admin: 03/13/20 09:55 Dose: 12.5 mg Documented by: Furosemide (Lasix) 40 mg IVPUSH NOW ONE Stop: 03/12/20 16:20 Last Admin: 03/12/20 16:58 Dose: 40 mg Documented by: Remdesivir 200 mg/ Sodium (Chloride) 250 mls @ 250 mls/hr IV ONETIME ONE Stop: 03/12/20 14:13 Last Admin: 03/12/20 15:54 Dose: 250 mls/hr Documented by: Magnesium Sulfate (Magnesium Sulfate In Water Premix) 2 gm in 50 mls @ 50 mls/hr IV ONETIME ONE Stop: 03/13/20 10:44 Last Admin: 03/13/20 10:07 Dose: 50 mls/hr Documented by: Insulin Glargine (Lantus Solostar) 30 units SUBCUT BEDTIME [facility] Last Admin: 03/12/20 20:58 Dose: 30 units Documented by: Iopamidol (Isovue Multipack-370 (76%)) 75 ml IVPUSH ONETIME STA Stop: 03/12/20 11:48 Last Admin: 03/12/20 11:56 Dose: 75 ml Documented by: Potassium Chloride (Klor-Con M20) 40 meq PO ONETIME ONE Stop: 03/13/20 09:25 Last Admin: 03/13/20 10:06 Dose: 40 meq Documented by: Sodium Chloride (Saline Flush) 10 ml FLUSH ASDIRECTED PRN PRN Reason: Keep Vein Open Last Admin: 03/13/20 09:56 Dose: 10 ml Documented by: Sodium Chloride (Saline Flush) 2.5 ml FLUSH ASDIRECTED PRN PRN Reason: Keep Vein Open Last Admin: 03/12/20 10:00 Dose: 2.5 ml Documented by: - Exam General: Alert, Oriented Neck: Supple Cardiovascular: Regular Rate, Regular Rhythm Extremities: Non-Tender, No Pedal Edema Skin: Warm, Dry, Intact Neurological: No New Focal Deficit Sepsis Event Note - Evaluation Sepsis Screening Result: No Definite Risk - Focused Exam Vital Signs: Vital Signs Temp Pulse Pulse Resp BP BP Pulse Ox 03/15/20 10:04 84 149/82 H 03/15/20 10:03 149/82 H 03/15/20 08:00 36.9 C 62 18 149/65 H 96 03/15/20 04:05 35.9 C L 62 20 169/84 H 95 - Problem List Review Problem List Initiated/Reviewed/Updated: Yes - My Orders Last 24 Hours: My Active Orders 03/16/20 05:11 BASIC METABOLIC PANEL,BMP [CHEM] AM CBC WITH AUTO DIFF [HEME] AM MAGNESIUM [CHEM] AM - Plan Plan:: This 49-year-old female admitted with acute on chronic HFpEF with acute hypoxic respiratory failure and COVID-19 infection 1. Acute on chronic HFpEF -Continue Lasix 40 mg IV twice daily, continues to have good diuresis -Low sodium ADA diet with 2 L fluid restriction -Strict I's and O's and daily weights -carvedilol increased to 25 mg twice a day lisinopril 40 daily and amlodipine also increased to 10 mg once a day. -Echo reports EF of 60-65% - Monitor labwork daily 2. COVID-19 infection --Continue remdesivir 100 mg daily IV x4 days -Dexamethasone 6 mg p.o. daily x10 days -Lovenox 40 mg subcut daily - Monitor liver function daily 3. CAD/hypertension/CVA/Carotid stenosis -Continue carvedilol 25 mg twice daily lisinopril 40 daily and amlodipine 10 mg daily for HTN - Continue aspirin and Plavix - Continue statin and Zetia - hx of high grade stenosis L ICA, with TPA administration and CVA in 2019. 4. Dm Type 2 -Blood sugars elevated likely secondary to dexamethasone -We will give 8 units with each meal plus sliding scale NovoLog -Uncontrolled, last A1c 9.8 - Lantus 50 units subcutaneously in the evening - NovoLog sliding scale with TIDAC VTE prophylaxis: Lovenox CODE STATUS: FULL CODE Dispo: 2 to 3 days pending improvement.
[2020-03-15] MEDS: atorvaSTATin 40 MG Tab PO SCH (20:27)
[2020-03-15] MEDS: Acetaminophen 325 MG Tab PO PRN (20:30)
[2020-03-15] MEDS: Insulin Glargine,Human Rec. Analog 100 Units/ML 3 ML Pen SUBCUT SCH (20:36)
[2020-03-16] MEDS: Codeine/guaiFENesin 10-100 MG/5 ML Syrup 5 ML Cup PO PRN ×2 (03:44→21:19)
[2020-03-16 06:50] LABS: BLOOD UREA NITROGEN,BUN 27 mg/dL (7.0-18.0); CARBON DIOXIDE,CO2 33.9 mmol/L (21.0-32.0); CHLORIDE,CL 97 mmol/L (98-107); GLUCOSE RANDOM 325 mg/dL (74-106); SODIUM,NA 136 mmol/L (136-145)
[2020-03-16] MEDS: Insulin Aspart 100 Units/ML 3 ML Pen SUBCUT SCH ×6 (08:12→17:31)
[2020-03-16] MEDS: Omeprazole 20 MG Cap.CR PO SCH (08:15)
[2020-03-16] MEDS: Sertraline 100 MG Tab PO SCH (08:16)
[2020-03-16] MEDS: Furosemide 40 MG/4 ML VIAL IVPUSH SCH ×2 (08:16→14:40)
[2020-03-16] MEDS: Carvedilol 12.5 MG Tab PO SCH ×2 (08:17→21:18)
[2020-03-16] MEDS: Clopidogrel 75 MG Tab PO SCH (08:17)
[2020-03-16] MEDS: amLODIPine 5 MG Tab PO SCH (08:17)
[2020-03-16] MEDS: Aspirin 81 MG Tab.Chew PO SCH (08:17)
[2020-03-16] MEDS: Lisinopril 10 MG Tab PO SCH (08:17)
[2020-03-16] MEDS: Dexamethasone 4 MG Tab PO SCH (08:18)
[2020-03-16] MEDS: Benzonatate 100 MG Cap PO PRN (11:47)
--- NOTE | 2020-03-16 14:35 | PCM.PN ---
- General Info Date of Service: 03/16/20 Admission Dx/Problem (Free Text): Admission Diagnosis/Problem Admission Diagnosis/Problem Chest pain with acute on chronic CHF exacerbation, acute hypoxic respiratory failure and COVID 19 infection Subjective Update: feels better, breathing and swelling is better. Functional Status: Reports: Tolerating Diet, Ambulating, Urinating - Review of Systems General: Reports: Weakness. Denies: Fever, Fatigue, Malaise HEENT: Denies: Contact Lenses, Dysphasia, Ear Pain Pulmonary: Denies: Shortness of Breath, Pleuritic Chest Pain Cardiovascular: Denies: Chest Pain, Palpitations, Dyspnea on Exertion Gastrointestinal: Denies: Abdominal Pain, Constipation, Decreased Appetite Genitourinary: Denies: Dysuria, Frequency, Burning Musculoskeletal: Denies: Neck Pain, Shoulder Pain, Arm Pain - Patient Data Vitals - Most Recent: Last Vital Signs Temp 36.4 C 03/16/20 11:51 Pulse 62 03/16/20 11:51 Resp 18 03/16/20 11:51 BP 166/87 H 03/16/20 11:51 Pulse Ox 92 L 03/16/20 11:51 Weight - Most Recent: 141.475 kg I&O - Last 24 Hours: Intake & Output 03/15/20 03/16/20 03/16/20 22:59 06:59 14:59 Intake Total 800 800 Output Total 5040 2350 Balance -4240 -1550 Lab Results Last 24 Hours: Laboratory Results - last 24 hr 03/15/20 03/16/20 03/16/20 Range/Units 17:53 05:58 05:58 WBC 3.84 L (4.0-11.0) K/uL RBC 4.42 (4.30-5.90) M/uL Hgb 11.7 L (12.0-16.0) g/dL Hct 36.3 (36.0-46.0) % MCV 82.1 (80.0-98.0) fL MCH 26.5 L (27.0-32.0) pg MCHC 32.2 (31.0-37.0) g/dL RDW Std Deviation 39.2 (28.0-62.0) fl RDW Coeff of Speedy 13 (11.0-15.0) % Plt Count 142 L (150-400) K/uL MPV 10.90 (7.40-12.00) fL Neut % (Auto) 77.3 (48.0-80.0) % Lymph % (Auto) 12.0 L (16.0-40.0) % [place] % (Auto) 10.7 (0.0-15.0) % Eos % (Auto) 0.0 (0.0-7.0) % Baso % (Auto) 0.0 (0.0-1.5) % Neut # (Auto) 3.0 (1.4-5.7) K/uL Lymph # (Auto) 0.5 L (0.6-2.4) K/uL [place] # (Auto) 0.4 (0.0-0.8) K/uL Eos # (Auto) 0.0 (0.0-0.7) K/uL Baso # (Auto) 0.0 (0.0-0.1) K/uL Nucleated RBC % 0.0 /100WBC Nucleated RBCs # 0 K/uL Sodium 136 (136-145) mmol/L Potassium 4.0 (3.5-5.1) mmol/L Chloride 97 L (98-107) mmol/L Carbon Dioxide 33.9 H (21.0-32.0) mmol/L BUN 27 H (7.0-18.0) mg/dL Creatinine 0.9 (0.6-1.0) mg/dL Est Cr Clr Drug Dosing 75.15 mL/min Estimated GFR (MDRD) > 60.0 ml/min Glucose 325 H (74-106) mg/dL POC Glucose 213 H (60-110) mg/dL Calcium 8.7 (8.5-10.1) mg/dL Magnesium 1.9 (1.8-2.4) mg/dL 03/16/20 03/16/20 Range/Units 06:09 11:49 WBC (4.0-11.0) K/uL RBC (4.30-5.90) M/uL Hgb (12.0-16.0) g/dL Hct (36.0-46.0) % MCV (80.0-98.0) fL MCH (27.0-32.0) pg MCHC (31.0-37.0) g/dL RDW Std Deviation (28.0-62.0) fl RDW Coeff of Speedy (11.0-15.0) % Plt Count (150-400) K/uL MPV (7.40-12.00) fL Neut % (Auto) (48.0-80.0) % Lymph % (Auto) (16.0-40.0) % [place] % (Auto) (0.0-15.0) % Eos % (Auto) (0.0-7.0) % Baso % (Auto) (0.0-1.5) % Neut # (Auto) (1.4-5.7) K/uL Lymph # (Auto) (0.6-2.4) K/uL [place] # (Auto) (0.0-0.8) K/uL Eos # (Auto) (0.0-0.7) K/uL Baso # (Auto) (0.0-0.1) K/uL Nucleated RBC % /100WBC Nucleated RBCs # K/uL Sodium (136-145) mmol/L Potassium (3.5-5.1) mmol/L Chloride (98-107) mmol/L Carbon Dioxide (21.0-32.0) mmol/L BUN (7.0-18.0) mg/dL Creatinine (0.6-1.0) mg/dL Est Cr Clr Drug Dosing mL/min Estimated GFR (MDRD) ml/min Glucose (74-106) mg/dL POC Glucose 309 H 328 H (60-110) mg/dL Calcium (8.5-10.1) mg/dL Magnesium (1.8-2.4) mg/dL Med Orders - Current: Current Medications Acetaminophen (Tylenol) 650 mg PO Q4H PRN PRN Reason: Pain (Mild 1-3)/fever Last Admin: 03/15/20 20:30 Dose: 650 mg Documented by: Albuterol/Ipratropium (Combivent Respimat) 0 gm INH Q4H PRN PRN Reason: Dyspnea Amlodipine Besylate (Norvasc) 10 mg PO DAILY [facility] Last Admin: 03/16/20 08:17 Dose: 10 mg Documented by: Aspirin (Aspirin) 81 mg PO DAILY [facility] Last Admin: 03/16/20 08:17 Dose: 81 mg Documented by: Atorvastatin Calcium (Lipitor) 80 mg PO BEDTIME [facility] Last Admin: 03/15/20 20:27 Dose: 80 mg Documented by: Benzonatate (Tessalon Perles) 200 mg PO TID PRN PRN Reason: Cough Last Admin: 03/16/20 11:47 Dose: 200 mg Documented by: Carvedilol (Coreg) 25 mg PO BID [facility] Last Admin: 03/16/20 08:17 Dose: 25 mg Documented by: Clopidogrel Bisulfate (Plavix) 75 mg PO DAILY [facility] Last Admin: 03/16/20 08:17 Dose: 75 mg Documented by: Dexamethasone (Dexamethasone) 6 mg PO DAILY [facility] Stop: 03/21/20 09:01 Last Admin: 03/16/20 08:18 Dose: 6 mg Documented by: Dextrose/Water (Dextrose 50% In Water) 50 ml IV ASDIRECTED PRN PRN Reason: Hypoglycemia Enoxaparin Sodium (Lovenox) 40 mg SUBCUT Q24H [facility] Last Admin: 03/15/20 14:44 Dose: 40 mg Documented by: Furosemide (Lasix) 40 mg IVPUSH BIDDIURETIC [facility] Last Admin: 03/16/20 08:16 Dose: 40 mg Documented by: Glucagon (Glucagen) 1 mg IM ASDIRECTED PRN PRN Reason: Hypoglycemia Guaifenesin/Codeine Phosphate (Robitussin Ac) 5 ml PO Q6H PRN PRN Reason: Cough Last Admin: 03/16/20 03:44 Dose: 5 ml Documented by: Remdesivir 100 mg/ Sodium (Chloride) 100 mls @ 100 mls/hr IV Q24H [facility] Stop: 03/16/20 15:14 Last Admin: 03/15/20 14:45 Dose: 100 mls/hr Documented by: Insulin Aspart (Novolog) 0 unit SUBCUT TIDAC [facility]; Protocol Last Admin: 03/16/20 12:42 Dose: 4 units Documented by: Insulin Aspart (Novolog) 8 unit SUBCUT TIDAC [facility] Last Admin: 03/16/20 12:43 Dose: 8 unit Documented by: Insulin Glargine (Lantus Solostar) 50 units SUBCUT BEDTIME [facility] Last Admin: 03/15/20 20:36 Dose: 50 unit Documented by: Lisinopril (Prinivil) 40 mg PO DAILY [facility] Last Admin: 03/16/20 08:17 Dose: 40 mg Documented by: Omeprazole (Omeprazole) 40 mg PO ACBREAKFAST [facility] Last Admin: 03/16/20 08:15 Dose: 40 mg Documented by: Ondansetron HCl (Zofran) 4 mg IVPUSH Q4H PRN PRN Reason: Nausea Sertraline HCl (Zoloft) 200 mg PO DAILY [facility] Last Admin: 03/16/20 08:16 Dose: 200 mg Documented by: Sodium Chloride (Saline Flush) 2.5 ml FLUSH ASDIRECTED PRN PRN Reason: Keep Vein Open Last Admin: 03/12/20 10:00 Dose: 2.5 ml Documented by: Discontinued Medications Amlodipine Besylate (Norvasc) 5 mg PO DAILY [facility] Last Admin: 03/13/20 09:55 Dose: 5 mg Documented by: Amlodipine Besylate (Norvasc) 5 mg PO ONETIME ONE Stop: 03/13/20 12:15 Last Admin: 03/13/20 13:02 Dose: 5 mg Documented by: Aspirin (Aspirin) 81 mg PO DAILY [facility] Carvedilol (Coreg) 12.5 mg PO BID [facility] Last Admin: 03/13/20 09:55 Dose: 12.5 mg Documented by: Furosemide (Lasix) 40 mg IVPUSH NOW ONE Stop: 03/12/20 16:20 Last Admin: 03/12/20 16:58 Dose: 40 mg Documented by: Remdesivir 200 mg/ Sodium (Chloride) 250 mls @ 250 mls/hr IV ONETIME ONE Stop: 03/12/20 14:13 Last Admin: 03/12/20 15:54 Dose: 250 mls/hr Documented by: Magnesium Sulfate (Magnesium Sulfate In Water Premix) 2 gm in 50 mls @ 50 mls/hr IV ONETIME ONE Stop: 03/13/20 10:44 Last Admin: 03/13/20 10:07 Dose: 50 mls/hr Documented by: Insulin Glargine (Lantus Solostar) 30 units SUBCUT BEDTIME [facility] Last Admin: 03/12/20 20:58 Dose: 30 units Documented by: Iopamidol (Isovue Multipack-370 (76%)) 75 ml IVPUSH ONETIME STA Stop: 03/12/20 11:48 Last Admin: 03/12/20 11:56 Dose: 75 ml Documented by: Potassium Chloride (Klor-Con M20) 40 meq PO ONETIME ONE Stop: 03/13/20 09:25 Last Admin: 03/13/20 10:06 Dose: 40 meq Documented by: Sodium Chloride (Saline Flush) 10 ml FLUSH ASDIRECTED PRN PRN Reason: Keep Vein Open Last Admin: 03/13/20 09:56 Dose: 10 ml Documented by: Sodium Chloride (Saline Flush) 2.5 ml FLUSH ASDIRECTED PRN PRN Reason: Keep Vein Open Last Admin: 03/12/20 10:00 Dose: 2.5 ml Documented by: - Exam General: Alert, Oriented, Cooperative Neck: Supple Lungs: Normal Respiratory Effort, Crackles. No: Clear to Auscultation, Decreased Breath Sounds, Rhonchi, Wheezing Cardiovascular: Regular Rate, Regular Rhythm GI/Abdominal Exam: Normal Bowel Sounds, Soft, Non-Tender Extremities: Normal Inspection, Normal Range of Motion Sepsis Event Note - Evaluation Sepsis Screening Result: No Definite Risk - Focused Exam Vital Signs: Vital Signs Temp Pulse Pulse Resp BP BP Pulse Ox 03/16/20 11:51 36.4 C 62 18 166/87 H 92 L 03/16/20 08:17 62 163/87 H 03/16/20 08:00 36.4 C 62 20 163/87 H 92 L 03/16/20 03:45 36.2 C 66 20 167/95 H 95 - Problem List & Annotations (1) (HFpEF) heart failure with preserved ejection fraction SNOMED Code(s): 889918440 Code(s): I50.30 - UNSPECIFIED DIASTOLIC (CONGESTIVE) HEART FAILURE Status: Acute Current Visit: Yes Qualifiers: Heart failure chronicity: acute on chronic Qualified Code(s): I50.33 - Acute on chronic diastolic (congestive) heart failure (2) Acute coronary syndrome SNOMED Code(s): 577472842 Code(s): I24.9 - ACUTE ISCHEMIC HEART DISEASE, UNSPECIFIED Status: Acute Current Visit: Yes (3) Atypical chest pain SNOMED Code(s): 615355026 Code(s): R07.89 - OTHER CHEST PAIN Status: Acute Current Visit: Yes (4) COVID-19 SNOMED Code(s): 697707491 Code(s): U07.1 - COVID-19 Status: Acute Current Visit: Yes (5) Carotid stenosis Status: Chronic Current Visit: Yes (6) HLD (hyperlipidemia) SNOMED Code(s): 03181985 Code(s): E78.5 - HYPERLIPIDEMIA, UNSPECIFIED Status: Chronic Current Visit: Yes (7) HTN (hypertension) SNOMED Code(s): 37138982 Code(s): I10 - ESSENTIAL (PRIMARY) HYPERTENSION Status: Chronic Current Visit: Yes - Problem List Review Problem List Initiated/Reviewed/Updated: Yes - Plan Plan:: This 49-year-old female admitted with acute on chronic HFpEF with acute hypoxic respiratory failure and COVID-19 infection 1. Acute on chronic HFpEF -Continue Lasix 40 mg IV twice daily, continues to have good diuresis, -5L today , swutch to PO in AM -Low sodium ADA diet with 2 L fluid restriction -Strict I's and O's and daily weights -carvedilol increased to 25 mg twice a day lisinopril 40 daily and amlodipine also increased to 10 mg once a day. -Echo reports EF of 60-65% - Monitor labwork daily 2. COVID-19 infection --Continue remdesivir 100 mg daily IV x4 days -Dexamethasone 6 mg p.o. daily x10 days -Lovenox 40 mg subcut daily - Monitor liver function daily 3. CAD/hypertension/CVA/Carotid stenosis -Continue carvedilol 25 mg twice daily lisinopril 40 daily and amlodipine 10 mg daily for HTN - Continue aspirin and Plavix - Continue statin and Zetia - hx of high grade stenosis L ICA, with TPA administration and CVA in 2019. 4. Dm Type 2 -Blood sugars elevated likely secondary to dexamethasone -We will give 8 units with each meal plus sliding scale NovoLog -Uncontrolled, last A1c 9.8 - Lantus 50 units subcutaneously in the evening - NovoLog sliding scale with TIDAC VTE prophylaxis: Lovenox CODE STATUS: FULL CODE Dispo: 2 to 3 days pending improvement.
[2020-03-16] MEDS ORDERED: Magnesium Oxide 400 MG Tab PO ONE (14:37)
[2020-03-16] MEDS: Enoxaparin 40 MG/0.4 ML Syringe SUBCUT SCH (14:45)
[2020-03-16] MEDS: REMDESIVIR (EUA) 100 MG in Sodium Chloride 0.9% 100 ML IV SCH (14:46)
[2020-03-16] MEDS: Insulin Glargine,Human Rec. Analog 100 Units/ML 3 ML Pen SUBCUT SCH (21:19)
[2020-03-16] MEDS: atorvaSTATin 40 MG Tab PO SCH (21:19)
[2020-03-17] MEDS: Benzonatate 100 MG Cap PO PRN (04:45)
[2020-03-17 06:14] LABS: CARBON DIOXIDE,CO2 34.9 mmol/L (21.0-32.0)
[2020-03-17] MEDS: Omeprazole 20 MG Cap.CR PO SCH (06:35)
[2020-03-17 07:48] VITALS: PULSE 57
[2020-03-17] MEDS: Insulin Aspart 100 Units/ML 3 ML Pen SUBCUT SCH ×2 (07:50→07:51)
[2020-03-17] MEDS: Furosemide 40 MG/4 ML VIAL IVPUSH SCH (07:52)
[2020-03-17] MEDS: Dexamethasone 4 MG Tab PO SCH (08:53)
[2020-03-17] MEDS: Aspirin 81 MG Tab.Chew PO SCH (08:53)
[2020-03-17] MEDS: Clopidogrel 75 MG Tab PO SCH (08:54)
[2020-03-17] MEDS: amLODIPine 5 MG Tab PO SCH (08:54)
[2020-03-17] MEDS: Sertraline 100 MG Tab PO SCH (08:55)
[2020-03-17] MEDS: Lisinopril 10 MG Tab PO SCH (08:56)
[2020-03-17 08:57] VITALS: BP 112/52
[2020-03-17] MEDS ORDERED: Carvedilol 25 MG Tab PO SCH (09:00)
--- NOTE | 2020-03-17 10:28 | PCM.DCSUM1 ---
Discharge Summary - Hospital Course Brief History: This 49 year old female with pmh of DM type 2, HTN, HLD, diabetic neuropathy, and CAD with recent stent placement to proximal and mid LAD on 02/26/2020 presents to the ED with complaints of chest and and dyspnea. She reports the dyspnea has been present since her stent placement but progressively worsening along with leg swelling and all over feelings of being swollen. She reports she is short of breath with anything especially with movement and noted when lying flat. She reports the chest pain is mostly a pressure feeling with intermittent sharp pain with exertion that radiates to her back and neck at times. She reports some nausea. She reports a dry cough that started yesterday, with mild chills today but no overt fever. No productive cough. No headache. Feels very tired/fatigued. She denies urinary concerns. No diarrhea, constipation or black or bloody BMs. She used to smoke but quit 16 years ago, no alcohol use and no recreational drug use. Her mother and maternal grandfather of CAD in their late 40s and early 50s. In the ER no leukocytosis noted platelets 146,000 D-dimer mildly elevated at 1.28, BUN 22 creatinine 0.9 troponin was negative chest x-ray showed no acute cardiopulmonary concerns mildly enlarged heart. CTA of her chest was obtained which showed bilateral pleural effusions and a pericardial effusion. No PE noted EKG sinus rhythm heart rate [address] elevation or signs of acute ischemia. Blood pressure is elevated in the ER 160s- 170s/ 80s. Sats 89-90% on RA. Culture returned positive. She will be admitted inpatient for acute hypoxic respiratory failure, acute on chronic CHF and COVID-19 infection. PCP, Dr Koch Diagnosis: Stroke: No - Discharge Data Discharge Date: 03/17/20 Discharge Disposition: Home, Self-Care 01 Condition: Good - Referral to Home Health Primary Care Physician: PCP None - Discharge Diagnosis/Problem(s) (1) Acute respiratory failure with hypoxia SNOMED Code(s): 93128307, 431983556 ICD Code: J96.01 - ACUTE RESPIRATORY FAILURE WITH HYPOXIA Status: Acute (2) (HFpEF) heart failure with preserved ejection fraction SNOMED Code(s): 549987722 ICD Code: I50.30 - UNSPECIFIED DIASTOLIC (CONGESTIVE) HEART FAILURE Status: Acute Qualifiers: Heart failure chronicity: acute on chronic Qualified Code(s): I50.33 - Acute on chronic diastolic (congestive) heart failure (3) COVID-19 SNOMED Code(s): 284774363 ICD Code: U07.1 - COVID-19 Status: Acute (4) DM type 2 (diabetes mellitus, type 2) SNOMED Code(s): 41557969 ICD Code: E11.9 - TYPE 2 DIABETES MELLITUS WITHOUT COMPLICATIONS Status: Chronic Qualifiers: Diabetes mellitus longterm insulin use: with longterm use Diabetes mellitus complication status: with hyperglycemia Qualified Code(s): E11.65 - Type 2 diabetes mellitus with hyperglycemia; Z79.4 - senior living (current) use of insulin (5) Obesity SNOMED Code(s): 763768881, 043359221 ICD Code: E66.9 - OBESITY, UNSPECIFIED Status: Chronic Qualifiers: Serious obesity comorbidity presence: with serious comorbidity (6) Carotid stenosis Status: Chronic (7) CVA (cerebral vascular accident) SNOMED Code(s): 369603390 ICD Code: I63.9 - CEREBRAL INFARCTION, UNSPECIFIED Status: Acute Qualifiers: CVA mechanism: unspecified Qualified Code(s): I63.9 - Cerebral infarction, unspecified (8) HTN (hypertension) SNOMED Code(s): 84286370 ICD Code: I10 - ESSENTIAL (PRIMARY) HYPERTENSION Status: Chronic (9) HLD (hyperlipidemia) SNOMED Code(s): 42462643 ICD Code: E78.5 - HYPERLIPIDEMIA, UNSPECIFIED Status: Chronic - Patient Summary/Data Hospital Course: Admission diagnoses Acute respiratory failure with hypoxia Acute on chronic HFpEF COVID-19 infection Discharge diagnoses Acute respiratory failure with hypoxia-resolved Acute on chronic HFpEF COVID-19 infection Other PMH DM type II Obesity Carotid stenosis CVA HTN HLD This 49-year-old female was admitted with acute hypoxic respiratory failure secondary to acute on chronic HFpEF and COVID-19 infection. She was started on Lasix 40 mg IV twice daily along with low-sodium diet and fluid restriction. Dr. Prasad was notified of admission and agreed with treatment plan. Echo was obtained showing EF preserved at 65%, otherwise imaging poor quality unable to determine more information. During her time in the hospital she diuresed well 3 to 5 L daily on the 40 mg IV twice daily of Lasix. She was weaned off oxygen after 2 days in the hospital. And dyspnea improved significantly. Peripheral edema also improved. She went from 330 pounds on admission to 306 today which is her dry weight. During her stay amlodipine was increased to 10 mg daily along with Coreg increased to 25 mg twice daily due to hypertension. Pressure has been well controlled along with heart rate on these increased doses. She remains on lisinopril 40 mg as well. Regarding COVID-19 infection she was treated with dexamethasone 6 mg p.o. daily as well as Remdesivir 200 mg IV initially then 4 doses of 100 mg. This course was completed for total of 5 days. She continues to have dry hacking cough and mild shortness of breath but this is significantly improved. Continues to have fatigue during the day. She is currently afebrile. She was educated on quarantining for total of 20 days since she was hospitalized with severe illness. Work release was provided for another 2 weeks of quarantine. She was counseled on mask wearing at home as well as mask wearing while in public if it is that she needs to go out. She was also counseled on monitoring daily weights along with diet for increased sodium intake. She is monitor blood pressures at home and keep a log for Dr. Prasad, cardiology. I will stop her omeprazole due to her now being on Plavix. I will send prescription for Protonix for her to take instead. She is to follow-up with her PCP in 1 week and has an appointment to see Dr. Prasad on April 08. She is to return to the ER sooner if concerns should arise. - Patient Instructions Diet: Heart Healthy Diet, Diabetic Diet Fluid Restriction: 2000 mL Activity: As Tolerated, No Strenuous Activities, Rest and Relax Today Showering/Bathing: May Shower Notify Provider of: Fever, Increased Pain, Swelling and Redness, Drainage, Nausea and/or Vomiting Other/Special Instructions: Weigh yourself daily and log weights. If you should notice increase of 2 to 3 pounds in 1 to 2 days consider taking an extra Lasix. If you continue to gain weight please notify PCP or Dr. Prasad. Return to ER if chest pain returns. Monitor blood sugars closely at home with steroid use. Quarantine for a total of 20 days. End of quarantine would be April 01. Consider wearing a mask at home to limit exposure to others in the home. Also limit going out into the community, but if this is needed you must wear a mask at all times. - Discharge Plan *PRESCRIPTION DRUG MONITORING PROGRAM REVIEWED*: Not Applicable *COPY OF PRESCRIPTION DRUG MONITORING REPORT IN PATIENT YIN: Not Applicable Prescriptions/Med Rec: carvediloL [Coreg] 25 mg PO BID #60 tablet dexAMETHasone [Dexamethasone] 6 mg PO DAILY #6 tablet amLODIPine [Norvasc] 10 mg PO DAILY #60 tablet Pantoprazole Sodium [Protonix] 20 mg PO DAILY #30 tablet. Benzonatate [Tessalon Perle] 200 mg PO TID PRN #30 capsule PRN Reason: Cough Home Medications: Home Meds Aspirin 81 mg PO DAILY tab.chew 09/08/18 [Rx] Insulin Aspart [NovoLOG] See Protocol SUBCUT TIDAC #1 box 09/08/18 [Rx] Pen Needle, Diabetic [Pen Needle] 1 each MC QID #1 box 09/08/18 [Rx] atorvaSTATin [Lipitor] 80 mg PO BEDTIME #60 tablet 09/08/18 [Rx] Insulin Degludec [Tresiba] 56 unit SQ BEDTIME 03/12/20 [History] Clopidogrel [Plavix] 75 mg PO DAILY 03/13/20 [History] Fluticasone Propionate [Flovent HFA 110 MCG] 2 inh IH BID 03/13/20 [History] Furosemide 40 mg PO BID 03/13/20 [History] Nitroglycerin 0.4 mg SL .EVERY 5 MINUTES PRN 03/13/20 [History] Potassium Chloride [Klor-Con M20] 20 meq PO BID 03/13/20 [History] Sertraline [Zoloft] 200 mg PO DAILY 03/13/20 [History] atorvaSTATin [Lipitor] 80 mg PO DAILY 03/13/20 [History] Albuterol/Ipratropium [Combivent Respimat] 1 puff INH Q4H PRN inhaler 03/17/20 [Rx] Benzonatate [Tessalon Perle] 200 mg PO TID PRN #30 capsule 03/17/20 [Rx] Pantoprazole Sodium [Protonix] 20 mg PO DAILY #30 tablet. 03/17/20 [Rx] amLODIPine [Norvasc] 10 mg PO DAILY #60 tablet 03/17/20 [Rx] carvediloL [Coreg] 25 mg PO BID #60 tablet 03/17/20 [Rx] dexAMETHasone [Dexamethasone] 6 mg PO DAILY #6 tablet 03/17/20 [Rx] lisinopriL [Prinivil] 40 mg PO DAILY tablet 03/17/20 [Rx] Oxygen Therapy Mode: Room Air Patient Handouts: COVID-19 Frequently Asked Questions, Heart Failure, Self Care, [id number], COVID-19: How to Protect Yourself and Others - [facility] Referrals: Jayleen Haddad MD [Physician] - 04/08/20 3:00 pm Rachel Koch MD [Physician] - 03/28/20 9:30 am (Please arrive 15mins early, bring ID, insurance information and own mask.) - Discharge Summary/Plan Comment DC Time >30 min.: No - Patient Data Vitals - Most Recent: Last Vital Signs Temp 98.6 F 03/17/20 07:47 Pulse 57 L 03/17/20 08:55 Resp 18 03/17/20 07:47 BP 112/52 L 03/17/20 08:56 Pulse Ox 95 03/17/20 07:47 Weight - Most Recent: 141.475 kg I&O - Last 24 hours: Intake & Output 03/16/20 03/17/20 03/17/20 22:59 06:59 14:59 Intake Total 1610 1200 Output Total 3550 1500 Balance -1940 -300 Lab Results - Last 24 hrs: Laboratory Results - last 24 hr 03/16/20 03/16/20 03/16/20 Range/Units 11:49 17:24 21:17 WBC (4.0-11.0) K/uL RBC (4.30-5.90) M/uL Hgb (12.0-16.0) g/dL Hct (36.0-46.0) % MCV (80.0-98.0) fL MCH (27.0-32.0) pg MCHC (31.0-37.0) g/dL RDW Std Deviation (28.0-62.0) fl RDW Coeff of Speedy (11.0-15.0) % Plt Count (150-400) K/uL MPV (7.40-12.00) fL Neut % (Auto) (48.0-80.0) % Lymph % (Auto) (16.0-40.0) % [place] % (Auto) (0.0-15.0) % Eos % (Auto) (0.0-7.0) % Baso % (Auto) (0.0-1.5) % Neut # (Auto) (1.4-5.7) K/uL Lymph # (Auto) (0.6-2.4) K/uL [place] # (Auto) (0.0-0.8) K/uL Eos # (Auto) (0.0-0.7) K/uL Baso # (Auto) (0.0-0.1) K/uL Nucleated RBC % /100WBC Nucleated RBCs # K/uL Sodium (136-145) mmol/L Potassium (3.5-5.1) mmol/L Chloride (98-107) mmol/L Carbon Dioxide (21.0-32.0) mmol/L BUN (7.0-18.0) mg/dL Creatinine (0.6-1.0) mg/dL Est Cr Clr Drug Dosing mL/min Estimated GFR (MDRD) ml/min Glucose (74-106) mg/dL POC Glucose 328 H 333 H 355 H (60-110) mg/dL Calcium (8.5-10.1) mg/dL Phosphorus (2.6-4.7) mg/dL Magnesium (1.8-2.4) mg/dL 03/17/20 03/17/20 03/17/20 Range/Units 05:20 05:20 06:37 WBC 5.32 (4.0-11.0) K/uL RBC 4.83 (4.30-5.90) M/uL Hgb 12.7 (12.0-16.0) g/dL Hct 39.1 (36.0-46.0) % MCV 81.0 (80.0-98.0) fL MCH 26.3 L (27.0-32.0) pg MCHC 32.5 (31.0-37.0) g/dL RDW Std Deviation 38.4 (28.0-62.0) fl RDW Coeff of Speedy 13 (11.0-15.0) % Plt Count 160 (150-400) K/uL MPV 10.60 (7.40-12.00) fL Neut % (Auto) 79.7 (48.0-80.0) % Lymph % (Auto) 10.5 L (16.0-40.0) % [place] % (Auto) 9.8 (0.0-15.0) % Eos % (Auto) 0.0 (0.0-7.0) % Baso % (Auto) 0.0 (0.0-1.5) % Neut # (Auto) 4.2 (1.4-5.7) K/uL Lymph # (Auto) 0.6 (0.6-2.4) K/uL [place] # (Auto) 0.5 (0.0-0.8) K/uL Eos # (Auto) 0.0 (0.0-0.7) K/uL Baso # (Auto) 0.0 (0.0-0.1) K/uL Nucleated RBC % 0.0 /100WBC Nucleated RBCs # 0 K/uL Sodium 133 L (136-145) mmol/L Potassium 4.0 (3.5-5.1) mmol/L Chloride 95 L (98-107) mmol/L Carbon Dioxide 34.9 H (21.0-32.0) mmol/L BUN 28 H (7.0-18.0) mg/dL Creatinine 1.0 (0.6-1.0) mg/dL Est Cr Clr Drug Dosing 67.63 mL/min Estimated GFR (MDRD) 59.4 ml/min Glucose 264 H (74-106) mg/dL POC Glucose 244 H (60-110) mg/dL Calcium 9.1 (8.5-10.1) mg/dL Phosphorus 4.4 (2.6-4.7) mg/dL Magnesium 2.1 (1.8-2.4) mg/dL Med Orders - Current: Current Medications Acetaminophen (Tylenol) 650 mg PO Q4H PRN PRN Reason: Pain (Mild 1-3)/fever Last Admin: 03/15/20 20:30 Dose: 650 mg Documented by: Albuterol/Ipratropium (Combivent Respimat) 0 gm INH Q4H PRN PRN Reason: Dyspnea Last Admin: 03/17/20 04:47 Dose: 1 puff Documented by: Amlodipine Besylate (Norvasc) 10 mg PO DAILY [facility] Last Admin: 03/17/20 08:54 Dose: 10 mg Documented by: Aspirin (Aspirin) 81 mg PO DAILY [facility] Last Admin: 03/17/20 08:53 Dose: 81 mg Documented by: Atorvastatin Calcium (Lipitor) 80 mg PO BEDTIME [facility] Last Admin: 03/16/20 21:19 Dose: 80 mg Documented by: Benzonatate (Tessalon Perles) 200 mg PO TID PRN PRN Reason: Cough Last Admin: 03/17/20 04:45 Dose: 200 mg Documented by: Carvedilol (Coreg) 25 mg PO BID [facility] Last Admin: 03/17/20 08:55 Dose: 25 mg Documented by: Clopidogrel Bisulfate (Plavix) 75 mg PO DAILY [facility] Last Admin: 03/17/20 08:54 Dose: 75 mg Documented by: Dexamethasone (Dexamethasone) 6 mg PO DAILY [facility] Stop: 03/21/20 09:01 Last Admin: 03/17/20 08:53 Dose: 6 mg Documented by: Dextrose/Water (Dextrose 50% In Water) 50 ml IV ASDIRECTED PRN PRN Reason: Hypoglycemia Enoxaparin Sodium (Lovenox) 40 mg SUBCUT Q24H [facility] Last Admin: 03/16/20 14:45 Dose: 40 mg Documented by: Furosemide (Lasix) 40 mg IVPUSH BIDDIURETIC [facility] Last Admin: 03/17/20 07:52 Dose: 40 mg Documented by: Glucagon (Glucagen) 1 mg IM ASDIRECTED PRN PRN Reason: Hypoglycemia Guaifenesin/Codeine Phosphate (Robitussin Ac) 5 ml PO Q6H PRN PRN Reason: Cough Last Admin: 03/16/20 21:19 Dose: 5 ml Documented by: Insulin Aspart (Novolog) 0 unit SUBCUT TIDAC [facility]; Protocol Last Admin: 03/17/20 07:50 Dose: 2 units Documented by: Insulin Aspart (Novolog) 8 unit SUBCUT TIDAC [facility] Last Admin: 03/17/20 07:51 Dose: 8 unit Documented by: Insulin Glargine (Lantus Solostar) 50 units SUBCUT BEDTIME [facility] Last Admin: 03/16/20 21:19 Dose: 50 unit Documented by: Lisinopril (Prinivil) 40 mg PO DAILY [facility] Last Admin: 03/17/20 08:56 Dose: 40 mg Documented by: Omeprazole (Omeprazole) 40 mg PO ACBREAKFAST [facility] Last Admin: 03/17/20 06:35 Dose: 40 mg Documented by: Ondansetron HCl (Zofran) 4 mg IVPUSH Q4H PRN PRN Reason: Nausea Sertraline HCl (Zoloft) 200 mg PO DAILY [facility] Last Admin: 03/17/20 08:55 Dose: 200 mg Documented by: Sodium Chloride (Saline Flush) 2.5 ml FLUSH ASDIRECTED PRN PRN Reason: Keep Vein Open Last Admin: 03/12/20 10:00 Dose: 2.5 ml Documented by: Discontinued Medications Amlodipine Besylate (Norvasc) 5 mg PO DAILY [facility] Last Admin: 03/13/20 09:55 Dose: 5 mg Documented by: Amlodipine Besylate (Norvasc) 5 mg PO ONETIME ONE Stop: 03/13/20 12:15 Last Admin: 03/13/20 13:02 Dose: 5 mg Documented by: Aspirin (Aspirin) 81 mg PO DAILY [facility] Carvedilol (Coreg) 12.5 mg PO BID [facility] Last Admin: 03/13/20 09:55 Dose: 12.5 mg Documented by: Carvedilol (Coreg) 25 mg PO BID [facility] Last Admin: 03/16/20 21:18 Dose: 25 mg Documented by: Furosemide (Lasix) 40 mg IVPUSH NOW ONE Stop: 03/12/20 16:20 Last Admin: 03/12/20 16:58 Dose: 40 mg Documented by: Remdesivir 200 mg/ Sodium (Chloride) 250 mls @ 250 mls/hr IV ONETIME ONE Stop: 03/12/20 14:13 Last Admin: 03/12/20 15:54 Dose: 250 mls/hr Documented by: Remdesivir 100 mg/ Sodium (Chloride) 100 mls @ 100 mls/hr IV Q24H [facility] Stop: 03/16/20 15:14 Last Admin: 03/16/20 14:46 Dose: 100 mls/hr Documented by: Magnesium Sulfate (Magnesium Sulfate In Water Premix) 2 gm in 50 mls @ 50 mls/hr IV ONETIME ONE Stop: 03/13/20 10:44 Last Admin: 03/13/20 10:07 Dose: 50 mls/hr Documented by: Insulin Glargine (Lantus Solostar) 30 units SUBCUT BEDTIME [facility] Last Admin: 03/12/20 20:58 Dose: 30 units Documented by: Iopamidol (Isovue Multipack-370 (76%)) 75 ml IVPUSH ONETIME STA Stop: 03/12/20 11:48 Last Admin: 03/12/20 11:56 Dose: 75 ml Documented by: Magnesium Oxide (Magnesium Oxide) 400 mg PO ONETIME ONE Stop: 03/16/20 14:38 Last Admin: 03/16/20 14:59 Dose: 400 mg Documented by: Potassium Chloride (Klor-Con M20) 40 meq PO ONETIME ONE Stop: 03/13/20 09:25 Last Admin: 03/13/20 10:06 Dose: 40 meq Documented by: Sodium Chloride (Saline Flush) 10 ml FLUSH ASDIRECTED PRN PRN Reason: Keep Vein Open Last Admin: 03/13/20 09:56 Dose: 10 ml Documented by: Sodium Chloride (Saline Flush) 2.5 ml FLUSH ASDIRECTED PRN PRN Reason: Keep Vein Open Last Admin: 03/12/20 10:00 Dose: 2.5 ml Documented by:
--- NOTE | 2020-03-17 12:56 | ECHO ---
EXAM DATE: 03/12/20 PATIENT'S AGE: 49 The ECHO report has been scanned into [employer] and can be seen in this patient's EMR (Electronic Medical Record) under the REPORTS section. The report has also been scanned into PACS. [facility]
== END 2020-03-17 13:17 | disposition home or self-care (01) | DRG 137 ==
LOC: MW.ED 09:31 → MW.MS 13:26
PROVIDERS: ADMIT Internal Medicine; ATTEND Internal Medicine
PROC: 8E0ZXY6 Isolation (ICD-10-PCS; principal; 2020-03-12)
PROC: XW033E5 Introduction of Remdesivir Anti-infective into Peripheral Vein, Percutaneous Approach, New Technology Group 5 (ICD-10-PCS; 2020-03-12)
DX: U07.1 COVID-19 (principal); I50.33 Acute on chronic diastolic (congestive) heart failure; J96.01 Acute respiratory failure with hypoxia; E66.9 Obesity, unspecified; E11.65 Type 2 diabetes mellitus with hyperglycemia; I11.0 Hypertensive heart disease with heart failure; E78.5 Hyperlipidemia, unspecified; E11.42 Type 2 diabetes mellitus with diabetic polyneuropathy; I25.10 Atherosclerotic heart disease of native coronary artery without angina pectoris; E78.00 Pure hypercholesterolemia, unspecified; G47.30 Sleep apnea, unspecified; F32.9 Major depressive disorder, single episode, unspecified; M79.7 Fibromyalgia; J45.909 Unspecified asthma, uncomplicated; I65.29 Occlusion and stenosis of unspecified carotid artery; Z90.710 Acquired absence of both cervix and uterus; Z95.5 Presence of coronary angioplasty implant and graft; Z79.4 Long term (current) use of insulin; Z87.891 Personal history of nicotine dependence; Z86.73 Personal history of transient ischemic attack (TIA), and cerebral infarction without residual deficits; Z79.82 Long term (current) use of aspirin; Z79.899 Other long term (current) drug therapy
CPT/HCPCS: 36415; 71045; 71045-26; 71275; 71275-26; 80048; 80053; 82962; 83735; 83880; 84100; 84484; 85025; 85379; 93005; 93306; A9270-GY; J1650; J1815-GY; J1940; J3475; J7050; J8540; Q9967; U0002

== ENCOUNTER 2020-03-23 14:22 | Inpatient (IN) | payer BC ==
[2020-03-23] MEDS ORDERED: Sodium Chloride 0.9% 2.5 ML Syringe FLUSH PRN (14:25)
[2020-03-23] MEDS ORDERED: Sodium Chloride 0.9% 10 ML Syringe FLUSH PRN (14:25)
--- NOTE | 2020-03-23 14:28 | EDM.PDOC ---
ED HPI GENERAL MEDICAL PROBLEM - General Stated Complaint: EMS ARRIVAL Time Seen by Provider: 03/23/20 14:24 Source of Information: Reports: Patient History Limitations: Reports: No Limitations - History of Present Illness INITIAL COMMENTS - FREE TEXT/NARRATIVE: HISTORY AND PHYSICAL: History of present illness: Patient is a 49-year-old female who presents to the emergency room with complaints of numerous syncopal events, chest pain, shortness of breath, cough and fatigue over the past 2 to 3 days. She states at the end of February she had stents placed for coronary blockage. This was done in a controlled/elective setting. A few days after she started to have fluid retention in her lower extremities and felt short of breath. She presented to the emergency room on 03/12/2020 and was newly diagnosed with congestive heart failure and COVID-19. She states she was hospitalized until 03/17/20. She states she was started on Lasix and has lost over 40 pounds in water weight over the past 2 weeks. She also has had her blood pressure medications adjusted. Patient's COVID quarantine ended yesterday. She felt her COVID symptoms were improving but over the past 2 to 3 days has developed shortness of breath, cough and chest pain. This is improved with rest and worse with physical activity. She also has had several syncopal episodes, including a few today. She states she will go from lying to standing and feel very lightheaded and "before I know I am passed out". She does not recall if she has had any major hits to the head although has not had any pain to her head, headache, change in vision or confusion. 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 Patient denies any fever, chills, headache, change in vision, abdominal pain, nausea, vomiting, diarrhea, constipation or dysuria. Has not noted any blood in urine or stool. Patient has been eating and drinking appropriately. Review of systems: As per history of present illness and below otherwise all systems reviewed and negative. Past medical history: As per history of present illness and as reviewed below otherwise noncontributory. Surgical history: As per history of present illness and as reviewed below otherwise noncontributory. Social history: See social history for further information Family history: As per history of present illness and as reviewed below otherwise noncontributory. Physical exam: General: Well developed and well nourished 49-year-old female. Alert and orientated x 3. Nontoxic in appearance and in no acute distress. Vital signs are stable and have been reviewed by me. Nursing notes were reviewed. HEENT: Atraumatic, normocephalic, pupils equal and reactive bilaterally, negative for conjunctival pallor or scleral icterus, mucous membranes moist, TMs normal bilaterally, throat clear, neck supple, nontender, trachea midline. No drooling or trismus noted. No meningeal signs. No hot potato voice noted. Lungs: Clear to auscultation, breath sounds equal bilaterally, chest nontender. Normal work of breathing, no accessory muscles used. Heart: S1S2, regular rate and rhythm without overt murmur Abdomen: Soft, obese, nontender. Negative for masses or costovertebral tenderness. Skin: Large healing bruises to the upper abdomen early (states its from previous Lovenox shots). Otherwise skin is intact, warm, dry. No lesions or rashes noted. Hematologic: No petechiae or purpra. Mucosa appropriate color and normal nail bed color and refill. Extremities: Atraumatic, moves all extremities per self without difficulty or deficits, negative for cords or calf pain. No edema to bilateral upper or lower extremities. Neurovascular unremarkable. Neuro: Awake, alert, oriented. Cranial nerves II through XII unremarkable. Cerebellum unremarkable. Motor and sensory unremarkable throughout. Exam nonfocal. Psychiatric: Mood and affect are appropriate. Normal thought process. Answering questions appropriately. Notes: I did have Dr Wolff involved in this patients care as she is complex with multiple co-morbidities. He is agreeable with plan/direction of care. Patient's labs show she has an elevated D-dimer, will do a CTA of the chest to rule out PE. She also has elevated BUN/creatinine at 64/1.4. She did receive 1 liter of IV fluids and 324mg ASA per EMS upon arrival. Initial troponin is within normal limits. Patient initially tested positive for COVID-19 on 03/12/2020, she is off her quarantine and although she tested positive again today this could be just residual. We will continue with the contact precautions. Patient did have a significant drop in her blood pressure with her orthostatic vital signs and was symptomatic. CT of the chest shows no sign of acute PE. Lymph node enlargement is consistent with the history of sarcoidosis. Multifocal groundglass pulmonary opacities. Consider COVID-19 pneumonia. Trace pericardial fluid. Splenomegaly. All diagnostics are shared with the patient. She has been chest pain-free since being assessed by Dr. Wolff. She does have generalized headache and does request some Tylenol. Dr. Davila was consulted on this case and agreeable to taking her for further care and management. 1840: Lola here to see patient. Diagnostics: CBC, CMP, Troponin, EKG, CXR, Head CT, COVID, BNP, INR, CTA chest Therapeutics: IV fluids Impression: Chest pain r/o ND CORNELIA Syncope d/t orthostatic hypotension COVID - 19 Plan: Observation admission to Med/Surg with Telemetry Definitive disposition and diagnosis as appropriate pending reevaluation and review of above. Chest Pain Score (Numeric/FACES): 6 - Related Data Allergies Allergy/AdvReac Type Severity Reaction Status Date / Time No Known Allergies Allergy Verified 03/23/20 14:26 Home Meds: Home Meds Aspirin 81 mg PO DAILY tab.chew 09/08/18 [Rx] Insulin Aspart [NovoLOG] See Protocol SUBCUT TIDAC #1 box 09/08/18 [Rx] Pen Needle, Diabetic [Pen Needle] 1 each QID #1 box 09/08/18 [Rx] atorvaSTATin [Lipitor] 80 mg PO BEDTIME #60 tablet 09/08/18 [Rx] Insulin Degludec [Tresiba] 56 unit SQ BEDTIME 03/12/20 [History] Clopidogrel [Plavix] 75 mg PO DAILY 03/13/20 [History] Fluticasone Propionate [Flovent HFA 110 MCG] 2 inh IH BID 03/13/20 [History] Furosemide 40 mg PO BID 03/13/20 [History] Nitroglycerin 0.4 mg SL .EVERY 5 MINUTES PRN 03/13/20 [History] Potassium Chloride [Klor-Con M20] 20 meq PO BID 03/13/20 [History] Sertraline [Zoloft] 200 mg PO DAILY 03/13/20 [History] atorvaSTATin [Lipitor] 80 mg PO DAILY 03/13/20 [History] Albuterol/Ipratropium [Combivent Respimat] 1 puff INH Q4H PRN inhaler 11/09/20 [Rx] Benzonatate [Tessalon Perle] 200 mg PO TID PRN #30 capsule 03/17/20 [Rx] Pantoprazole Sodium [Protonix] 20 mg PO DAILY #30 tablet. 03/17/20 [Rx] amLODIPine [Norvasc] 10 mg PO DAILY #60 tablet 03/17/20 [Rx] carvediloL [Coreg] 25 mg PO BID #60 tablet 03/17/20 [Rx] lisinopriL [Prinivil] 40 mg PO DAILY tablet 03/17/20 [Rx] Past Medical History HEENT History: Reports: None Cardiovascular History: Reports: CAD, Heart Failure, High Cholesterol, Hypertension, Stents. 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: Musculoskeletal History: Reports: Fibromyalgia Neurological History: Reports: CVA, Other (See Below) (carotid stenosis, L ICA) Psychiatric History: Reports: Depression Endocrine/Metabolic History: Reports: Diabetes, Type II, Obesity/BMI 30+ Hematologic History: Reports: None Immunologic History: Reports: None Oncologic (Cancer) History: Reports: None Dermatologic History: Reports: None - Infectious Disease History Infectious Disease History: Reports: None - Past Surgical History Head Surgeries/Procedures: Reports: None HEENT Surgical History: Reports: None Cardiovascular Surgical History: Reports: None Respiratory Surgical History: Reports: Lung Biopsies GI Surgical History: Reports: None Female Surgical History: Reports: Hysterectomy Endocrine Surgical History: Reports: None Neurological Surgical History: Reports: None Musculoskeletal Surgical History: Reports: None Oncologic Surgical History: Reports: None Dermatological Surgical History: Reports: None Social & Family History - Family History Family Medical History: No Pertinent Family History Cardiac: Reports: CAD (mother and maternal grandfather late 40s and early 50s from CAD), Heart Failure, Hypertension, ND Endocrine/Metabolic: Reports: Diabetes, type II - Caffeine Use Caffeine Use: Reports: None Caffeine Use Comment: 1 cup coffee a day - Living Situation & Occupation Living situation: Reports: Occupation: Employed ED ROS GENERAL - Review of Systems Review Of Systems: Comprehensive ROS is negative, except as noted in HPI. ED EXAM, GENERAL - Physical Exam Exam: See Below (See dictation) Course - Vital Signs Last Recorded V/S: Last Vital Signs Temp 96.0 F L 03/23/20 14:29 Pulse 81 03/23/20 14:29 Resp 20 03/23/20 14:29 BP 95/58 L 03/23/20 14:29 Pulse Ox 99 03/23/20 14:29 - Orders/Labs/Meds Orders: Active Orders 24 hr Category Date Time Status EKG Documentation Completion [RC] STAT Care 03/23/20 14:25 Active Orthostatic Vital Signs [RC] ASDIRECTED Care 03/23/20 14:26 Active Sodium Chloride 0.9% [Normal Saline] 1,000 ml Med 03/23/20 18:08 Active IV STAT Sodium Chloride 0.9% [Saline Flush] Med 03/23/20 14:25 Active 10 ml FLUSH ASDIRECTED PRN Sodium Chloride 0.9% [Saline Flush] Med 03/23/20 14:25 Active 2.5 ml FLUSH ASDIRECTED PRN Saline Lock Insert [OM.PC] Stat Oth 03/23/20 14:25 Ordered Medication Orders Sodium Chloride (Normal Saline) 1,000 mls @ 999 mls/hr IV STAT ONE Stop: 03/23/20 19:08 Sodium Chloride (Saline Flush) 10 ml FLUSH ASDIRECTED PRN PRN Reason: Keep Vein Open Sodium Chloride (Saline Flush) 2.5 ml FLUSH ASDIRECTED PRN PRN Reason: Keep Vein Open Labs: Laboratory Tests 03/23/20 03/23/20 03/23/20 Range/Units 15:10 15:10 15:10 WBC 7.60 (4.0-11.0) K/uL RBC 4.93 (4.30-5.90) M/uL Hgb 13.1 (12.0-16.0) g/dL Hct 41.0 (36.0-46.0) % MCV 83.2 (80.0-98.0) fL MCH 26.6 L (27.0-32.0) pg MCHC 32.0 (31.0-37.0) g/dL RDW Std Deviation 40.8 (28.0-62.0) fl RDW Coeff of Speedy 14 (11.0-15.0) % Plt Count 113 L (150-400) K/uL MPV 11.50 (7.40-12.00) fL Neut % (Auto) 85.0 H (48.0-80.0) % Lymph % (Auto) 6.7 L (16.0-40.0) % [place] % (Auto) 7.9 (0.0-15.0) % Eos % (Auto) 0.4 (0.0-7.0) % Baso % (Auto) 0.0 (0.0-1.5) % Neut # (Auto) 6.5 H (1.4-5.7) K/uL Lymph # (Auto) 0.5 L (0.6-2.4) K/uL [place] # (Auto) 0.6 (0.0-0.8) K/uL Eos # (Auto) 0.0 (0.0-0.7) K/uL Baso # (Auto) 0.0 (0.0-0.1) K/uL Nucleated RBC % 0.0 /100WBC Nucleated RBCs # 0 K/uL INR D-Dimer, Quantitative 1.91 H (0.0-0.50) mg/L FEU Sodium 137 (136-145) mmol/L Potassium 4.5 (3.5-5.1) mmol/L Chloride 100 (98-107) mmol/L Carbon Dioxide 27.4 (21.0-32.0) mmol/L BUN 64 H (7.0-18.0) mg/dL Creatinine 1.4 H (0.6-1.0) mg/dL Est Cr Clr Drug Dosing 50.11 mL/min Estimated GFR (MDRD) 40.3 ml/min Glucose 137 H (74-106) mg/dL Calcium 8.6 (8.5-10.1) mg/dL Total Bilirubin 0.6 (0.2-1.0) mg/dL AST 16 (15-37) IU/L ALT 27 (14-63) IU/L Alkaline Phosphatase 99 (46-116) U/L Troponin I < 0.050 (0.000-0.056) ng/mL B-Natriuretic Peptide (<100) PG/ML Total Protein 6.9 (6.4-8.2) g/dL Albumin 2.9 L (3.4-5.0) g/dL Globulin 4.0 (2.6-4.0) g/dL Albumin/Globulin Ratio 0.7 L (0.9-1.6) Urine Color Urine Appearance Urine pH (5.0-8.0) Ur Specific [place] (1.001-1.035) Urine Protein (NEGATIVE) mg/dL Urine Glucose (UA) (NEGATIVE) mg/dL Urine Ketones (NEGATIVE) mg/dL Urine Occult Blood (NEGATIVE) Urine Nitrite (NEGATIVE) Urine Bilirubin (NEGATIVE) Urine Urobilinogen (<2.0) EU/dL Ur Leukocyte Esterase (NEGATIVE) SARS-CoV-2 RNA (EDDIE) (NEGATIVE) 03/23/20 03/23/20 03/23/20 Range/Units 15:10 15:10 15:35 WBC (4.0-11.0) K/uL RBC (4.30-5.90) M/uL Hgb (12.0-16.0) g/dL Hct (36.0-46.0) % MCV (80.0-98.0) fL MCH (27.0-32.0) pg MCHC (31.0-37.0) g/dL RDW Std Deviation (28.0-62.0) fl RDW Coeff of Speedy (11.0-15.0) % Plt Count (150-400) K/uL MPV (7.40-12.00) fL Neut % (Auto) (48.0-80.0) % Lymph % (Auto) (16.0-40.0) % [place] % (Auto) (0.0-15.0) % Eos % (Auto) (0.0-7.0) % Baso % (Auto) (0.0-1.5) % Neut # (Auto) (1.4-5.7) K/uL Lymph # (Auto) (0.6-2.4) K/uL [place] # (Auto) (0.0-0.8) K/uL Eos # (Auto) (0.0-0.7) K/uL Baso # (Auto) (0.0-0.1) K/uL Nucleated RBC % /100WBC Nucleated RBCs # K/uL INR 1.05 D-Dimer, Quantitative (0.0-0.50) mg/L FEU Sodium (136-145) mmol/L Potassium (3.5-5.1) mmol/L Chloride (98-107) mmol/L Carbon Dioxide (21.0-32.0) mmol/L BUN (7.0-18.0) mg/dL Creatinine (0.6-1.0) mg/dL Est Cr Clr Drug Dosing mL/min Estimated GFR (MDRD) ml/min Glucose (74-106) mg/dL Calcium (8.5-10.1) mg/dL Total Bilirubin (0.2-1.0) mg/dL AST (15-37) IU/L ALT (14-63) IU/L Alkaline Phosphatase (46-116) U/L Troponin I (0.000-0.056) ng/mL B-Natriuretic Peptide 13 (<100) PG/ML Total Protein (6.4-8.2) g/dL Albumin (3.4-5.0) g/dL Globulin (2.6-4.0) g/dL Albumin/Globulin Ratio (0.9-1.6) Urine Color Urine Appearance Urine pH (5.0-8.0) Ur Specific [place] (1.001-1.035) Urine Protein (NEGATIVE) mg/dL Urine Glucose (UA) (NEGATIVE) mg/dL Urine Ketones (NEGATIVE) mg/dL Urine Occult Blood (NEGATIVE) Urine Nitrite (NEGATIVE) Urine Bilirubin (NEGATIVE) Urine Urobilinogen (<2.0) EU/dL Ur Leukocyte Esterase (NEGATIVE) SARS-CoV-2 RNA (EDDIE) POSITIVE H (NEGATIVE) 03/23/20 03/23/20 Range/Units 18:10 18:16 WBC (4.0-11.0) K/uL RBC (4.30-5.90) M/uL Hgb (12.0-16.0) g/dL Hct (36.0-46.0) % MCV (80.0-98.0) fL MCH (27.0-32.0) pg MCHC (31.0-37.0) g/dL RDW Std Deviation (28.0-62.0) fl RDW Coeff of Speedy (11.0-15.0) % Plt Count (150-400) K/uL MPV (7.40-12.00) fL Neut % (Auto) (48.0-80.0) % Lymph % (Auto) (16.0-40.0) % [place] % (Auto) (0.0-15.0) % Eos % (Auto) (0.0-7.0) % Baso % (Auto) (0.0-1.5) % Neut # (Auto) (1.4-5.7) K/uL Lymph # (Auto) (0.6-2.4) K/uL [place] # (Auto) (0.0-0.8) K/uL Eos # (Auto) (0.0-0.7) K/uL Baso # (Auto) (0.0-0.1) K/uL Nucleated RBC % /100WBC Nucleated RBCs # K/uL INR D-Dimer, Quantitative (0.0-0.50) mg/L FEU Sodium (136-145) mmol/L Potassium (3.5-5.1) mmol/L Chloride (98-107) mmol/L Carbon Dioxide (21.0-32.0) mmol/L BUN (7.0-18.0) mg/dL Creatinine (0.6-1.0) mg/dL Est Cr Clr Drug Dosing mL/min Estimated GFR (MDRD) ml/min Glucose (74-106) mg/dL Calcium (8.5-10.1) mg/dL Total Bilirubin (0.2-1.0) mg/dL AST (15-37) IU/L ALT (14-63) IU/L Alkaline Phosphatase (46-116) U/L Troponin I < 0.050 (0.000-0.056) ng/mL B-Natriuretic Peptide (<100) PG/ML Total Protein (6.4-8.2) g/dL Albumin (3.4-5.0) g/dL Globulin (2.6-4.0) g/dL Albumin/Globulin Ratio (0.9-1.6) Urine Color YELLOW Urine Appearance CLEAR Urine pH 5.0 (5.0-8.0) Ur Specific [place] 1.020 (1.001-1.035) Urine Protein NEGATIVE (NEGATIVE) mg/dL Urine Glucose (UA) NEGATIVE (NEGATIVE) mg/dL Urine Ketones NEGATIVE (NEGATIVE) mg/dL Urine Occult Blood NEGATIVE (NEGATIVE) Urine Nitrite NEGATIVE (NEGATIVE) Urine Bilirubin NEGATIVE (NEGATIVE) Urine Urobilinogen 0.2 (<2.0) EU/dL Ur Leukocyte Esterase NEGATIVE (NEGATIVE) SARS-CoV-2 RNA (EDDIE) (NEGATIVE) Meds: Medications Generic Name Dose Route Start Last Admin Trade Name Freq PRN Reason Stop Dose Admin Sodium Chloride 1,000 mls @ 999 mls/hr 03/23/20 18:08 Normal Saline IV 03/23/20 19:08 STAT ONE Sodium Chloride 10 ml 03/23/20 14:25 Saline Flush FLUSH ASDIRECTED PRN Keep Vein Open Sodium Chloride 2.5 ml 03/23/20 14:25 Saline Flush FLUSH ASDIRECTED PRN Keep Vein Open Discontinued Medications Generic Name Dose Route Start Last Admin Trade Name Freq PRN Reason Stop Dose Admin Acetaminophen 650 mg 03/23/20 17:50 Tylenol PO 03/23/20 17:51 NOW ONE Fentanyl 100 mcg 03/23/20 16:28 Fentanyl IVPUSH 03/23/20 16:29 ONETIME ONE Iopamidol 100 ml 03/23/20 17:46 03/23/20 17:46 Isovue Multipack-370 (76%) IVPUSH 03/23/20 17:47 100 ml ONETIME ONE Administration Departure - Departure Time of Disposition: 18:55 Disposition: Refer to Observation Clinical Impression: COVID-19, Orthostatic hypotension, CORNELIA (acute kidney injury), Chest pain, rule out acute myocardial infarction Syncope Qualifiers: Syncope type: unspecified Qualified Code(s): R55 - Syncope and collapse - Discharge Information Sepsis Event Note (ED) - Focused Exam Vital Signs: Vital Signs Temp Pulse Resp BP Pulse Ox 03/23/20 14:29 96.0 F L 81 20 95/58 L 99 - My Orders Last 24 Hours: My Active Orders 03/23/20 14:25 EKG Documentation Completion [RC] STAT Sodium Chloride 0.9% [Saline Flush] 10 ml FLUSH ASDIRECTED PRN Sodium Chloride 0.9% [Saline Flush] 2.5 ml FLUSH ASDIRECTED PRN Saline Lock Insert [OM.PC] Stat 03/23/20 14:26 Orthostatic Vital Signs [RC] ASDIRECTED 03/23/20 18:08 Sodium Chloride 0.9% [Normal Saline] 1,000 ml IV STAT - Assessment/Plan Last 24 Hours: My Active Orders 03/23/20 14:25 EKG Documentation Completion [RC] STAT Sodium Chloride 0.9% [Saline Flush] 10 ml FLUSH ASDIRECTED PRN Sodium Chloride 0.9% [Saline Flush] 2.5 ml FLUSH ASDIRECTED PRN Saline Lock Insert [OM.PC] Stat 03/23/20 14:26 Orthostatic Vital Signs [RC] ASDIRECTED 03/23/20 18:08 Sodium Chloride 0.9% [Normal Saline] 1,000 ml IV STAT
[2020-03-23 15:40] LABS: BLOOD UREA NITROGEN,BUN 64 mg/dL (7.0-18.0); CARBON DIOXIDE,CO2 27.4 mmol/L (21.0-32.0); CHLORIDE,CL 100 mmol/L (98-107); GLUCOSE RANDOM 137 mg/dL (74-106); POTASSIUM,K 4.5 mmol/L (3.5-5.1); SODIUM,NA 137 mmol/L (136-145)
--- NOTE | 2020-03-23 16:25 | PCM.SN.2 ---
- Free Text/Narrative Note: The patient was presented to me by the mid-level provider, who sees patients independently as a licensed independent practitioner by [facility] and [facility] law. Up until the time that I was consulted and assumed supervision, the mid-level provider had been solely and independently caring for this patient and they were responsible for all aspects of care including performing the history and physical, formulating medical decision making, ordering medications, and ordering and evaluating testing. I have personally and independently seen and evaluated the patient at bedside and, if available, have spoken with the with the family. I agree with the history, physical, medical decision making, and plan of treatment as documented by the mid-level provider. I have performed the medical decision making for this patient, including assessing the results of all diagnostic testing and I have instructed the mid-level provider to document the results and carry through with the treatment plan that I deemed appropriate. If needed, any other comments, a focused physical examination, or my own medical decision making are documented below.. 49-year-old female with past medical history of recent stents x2, coronary disease, COVID-19 infection, congestive heart failure with preserved ejection fraction, hypertension, hyperlipidemia, pulmonary sarcoidosis, diabetes mellitus. Presenting today with several days of recurrent syncopal episodes, cough, and shortness of breath. Was hospitalized here from March 12 through the night for COVID-19 and congestive heart failure exacerbation. Several days prior to this she had 2 stents placed electively for coronary artery disease. When she was discharged from our hospital on March 17, she was started on furosemide and had several of her blood pressure medication dosages increased. Over the past several days she has had several syncopal episodes. She states that she has had 4 syncopal episodes today. She does not know if she struck her head. She is on Plavix and aspirin. She reports persistent lightheadedness when she stands up or changes positions to standing. She reports several episodes of intermittent pleuritic type chest pain described as "sharp". Earlier today. She is not having this chest pain at the moment. She does complain of some mild shortness of breath and does have a mild cough. Initially hemodynamically stable, not hypoxic or tachycardic. Twelve-lead EKG shows no acute ischemia. Labs show thrombocytopenia to 113,000. D-dimer elevated at 1.91. Metabolic panel shows elevated creatinine at 1.4 compared to baseline. Initial troponin is negative, BNP is negative. We are going to obtain a CT pulmonary angiogram to evaluate for pulmonary embolism. She was given full dose aspirin and currently has no chest discomfort. Anticipate that she will need to be admitted to the hospital on observation at a minimum given her history of coronary artery disease and multiple syncopal episodes, will need to have troponins trended and overnight telemetry monitoring and will need to have her blood pressure medications reevaluated. 1810: CT pulmonary angiogram looks like a COVID pattern but no obvious pulmonary embolism. We are going to do a second troponin and EKG and plan for overnight observation. 1826: CT pulmonary angiogram negative for pulmonary embolism but did demonstrate patchy bilateral groundglass opacities consistent with known Covid infection and pulmonary sarcoidosis. Will page the hospitalist for overnight admission observation.
[2020-03-23] MEDS ORDERED: fentaNYL 50 MCG/ML SDV IVPUSH ONE (16:28)
--- NOTE | 2020-03-23 16:58 | CR ---
INDICATION: Chest pain TECHNIQUE: Single view chest. Comparison chest x-ray 03/12/2020 FINDINGS: Stable enlarged cardiac silhouette. Low lung volumes. Lungs appear clear. Dictated by Nallely Villagomez MD @ Mar 23 2020 4:56PM Signed by Dr. Nallely Villagomez @ Mar 23 2020 4:57PM
[2020-03-23] MEDS ORDERED: Iopamidol 755 MG/ML 500 ML Multipack Bottle IVPUSH ONE (17:46)
[2020-03-23] MEDS ORDERED: Acetaminophen 325 MG Tab PO ONE (17:50)
[2020-03-23] MEDS ORDERED: Sodium Chloride 0.9% 1,000 ML IV ONE (18:08)
--- NOTE | 2020-03-23 18:21 | CT ---
INDICATION: Pleuritic chest pain Previous history of sarcoidosis. TECHNIQUE : CT scan of the chest. CTA PE protocol. IV contrast. 100 cc of Isovue intravenous FINDINGS: Pulmonary arteries:No pulmonary artery filling defects. Heart/mediastinum:Small amount of pericardial fluid. Enlarged symmetric bilateral mediastinal and hilar lymph nodes. Lungs and pleura:Patchy bilateral peripheral ground-glass opacities. Upper and lower lobe distribution. No effusion. Abdomen/skeletal:Spleen is enlarged. No skeletal abnormality. IMPRESSION: 1. No signs for acute pulmonary embolus. 2. Mediastinal and hilar lymph node enlargement compatible with a stated history of sarcoidosis. 3. Multifocal ground-glass pulmonary opacities. Consider COVID-19 pneumonia. 4. Trace pericardial fluid. 5. Splenomegaly. Please note that all CT scans at this facility use dose modulation, iterative reconstruction, and/or weight-based dosing when appropriate to reduce radiation dose to as low as reasonably achievable. Dictated by Alvaro Raphael MD @ Mar 23 2020 6:14PM Signed by Dr. Alvaro Raphael @ Mar 23 2020 6:20PM
--- NOTE | 2020-03-23 18:34 | CT ---
INDICATION : Falls. Syncope. TECHNIQUE : Noncontrast CT scan of brain. FINDINGS: No acute intra or extra-axial hemorrhage. The ventricles and sulci are normal size, shape and configuration. No visualized intracranial mass or additional abnormal attenuation. Bony calvarium is normal. Small mucous retention cyst maxillary sinus. Ethmoid mucosal thickening. IMPRESSION : No significant intracranial radiographic abnormality. Please note that all CT scans at this facility use dose modulation, iterative reconstruction, and/or weight-based dosing when appropriate to reduce radiation dose to as low as reasonably achievable. Dictated by Alvaro Raphael MD @ Mar 23 2020 6:14PM Signed by Dr. Alvaro Raphael @ Mar 23 2020 6:33PM
[2020-03-23] MEDS ORDERED: Ondansetron 4 MG Tab.DIS PO PRN (19:04)
[2020-03-23] MEDS ORDERED: Albuterol/Ipratropium 3.0-0.5 MG/3 ML Neb Soln NEB PRN (19:04)
[2020-03-23] MEDS ORDERED: Enoxaparin 40 MG/0.4 ML Syringe SUBCUT SCH (19:15)
[2020-03-23] MEDS ORDERED: Nitroglycerin 0.4 MG Tab.SL SL PRN (19:16)
--- NOTE | 2020-03-23 19:42 | PCM.HP.2 ---
H&P History of Present Illness - General Date of Service: 03/23/20 Admit Problem/Dx: Admission Diagnosis/Problem Admission Diagnosis/Problem Syncope due to orthostatic hypotension Source of Information: Patient History Limitations: Reports: No Limitations - History of Present Illness Initial Comments - Free Text/Narative: Patient is a 49-year-old female with a PMHx of CAD requiring stents 2x recently, CHF, HTN, HLD, DMII, TIA, as well as a recent admission for COVID 19. Pt returns with complaints of recurrent syncopal episodes, chest pain, shortness of breath, cough and fatigue since 3 days. Denies any alleviating or aggravating factors. Does mention associated chest pain 3/10 on the pain scale, described as a tightness intermittent in nature. Also shares that she recently had her BP medications adjusted prior to previous discharge. States that she records her blood pressures daily at home and has found a significant change of her systolic typically ranging in the 190's to 90's in the recent days. Furthermore, patient denies any fever, chills, headache, change in vision, abdominal pain, nausea, vomiting, diarrhea, constipation or dysuria or changes in weight or appetite. . Onset of Symptoms: Reports: Gradual Duration of Symptoms: Reports: Day(s): Chest Pain Score (Numeric/FACES): 6 - Related Data Allergies/Adverse Reactions: Allergies Allergy/AdvReac Type Severity Reaction Status Date / Time No Known Allergies Allergy Verified 03/23/20 14:26 Home Medications: Home Meds Aspirin 81 mg PO DAILY tab.chew 09/08/18 [Rx] Insulin Aspart [NovoLOG] See Protocol SUBCUT TIDAC #1 box 09/08/18 [Rx] Pen Needle, Diabetic [Pen Needle] 1 each QID #1 box 09/08/18 [Rx] atorvaSTATin [Lipitor] 80 mg PO BEDTIME #60 tablet 09/08/18 [Rx] Insulin Degludec [Tresiba] 56 unit SQ BEDTIME 03/12/20 [History] Clopidogrel [Plavix] 75 mg PO DAILY 03/13/20 [History] Fluticasone Propionate [Flovent HFA 110 MCG] 2 inh IH BID 03/13/20 [History] Furosemide 40 mg PO BID 03/13/20 [History] Nitroglycerin 0.4 mg SL .EVERY 5 MINUTES PRN 03/13/20 [History] Potassium Chloride [Klor-Con M20] 20 meq PO BID 03/13/20 [History] Sertraline [Zoloft] 200 mg PO DAILY 03/13/20 [History] atorvaSTATin [Lipitor] 80 mg PO DAILY 03/13/20 [History] Albuterol/Ipratropium [Combivent Respimat] 1 puff INH Q4H PRN inhaler 03/17/20 [Rx] Benzonatate [Tessalon Perle] 200 mg PO TID PRN #30 capsule 03/17/20 [Rx] Pantoprazole Sodium [Protonix] 20 mg PO DAILY #30 tablet. 03/17/20 [Rx] amLODIPine [Norvasc] 10 mg PO DAILY #60 tablet 03/17/20 [Rx] carvediloL [Coreg] 25 mg PO BID #60 tablet 03/17/20 [Rx] lisinopriL [Prinivil] 40 mg PO DAILY tablet 03/17/20 [Rx] Past Medical History HEENT History: Reports: None Cardiovascular History: Reports: CAD, Heart Failure, High Cholesterol, Hypertension, Stents. Denies: Afib, Arrhythmia Other Cardiovascular History: two stents placed to mid and proximal LAD on 02/29/[address] [facility] Respiratory History: Reports: Asthma, Sleep Apnea (currently being evaluated for by Dr Haddad) Gastrointestinal History: Reports: None Genitourinary History: Reports: None [employer] History: Reports: Musculoskeletal History: Reports: Fibromyalgia Neurological History: Reports: CVA, Other (See Below) (carotid stenosis, L ICA) Psychiatric History: Reports: Depression Endocrine/Metabolic History: Reports: Diabetes, Type II, Obesity/BMI 30+ Hematologic History: Reports: None Immunologic History: Reports: None Oncologic (Cancer) History: Reports: None Dermatologic History: Reports: None - Infectious Disease History Infectious Disease History: Reports: None - Past Surgical History Head Surgeries/Procedures: Reports: None HEENT Surgical History: Reports: None Cardiovascular Surgical History: Reports: None Respiratory Surgical History: Reports: Lung Biopsies GI Surgical History: Reports: None Female Surgical History: Reports: Hysterectomy Endocrine Surgical History: Reports: None Neurological Surgical History: Reports: None Musculoskeletal Surgical History: Reports: None Oncologic Surgical History: Reports: None Dermatological Surgical History: Reports: None Social & Family History - Family History Family Medical History: No Pertinent Family History Cardiac: Reports: CAD (mother and maternal grandfather late 40s and early 50s from CAD), Heart Failure, Hypertension, MS Endocrine/Metabolic: Reports: Diabetes, type II - Tobacco Use Tobacco Use Status *Q: Former Tobacco User Used Tobacco, but Quit: Yes Month/Year Tobacco Last Used: 15 - Caffeine Use Caffeine Use: Reports: None Caffeine Use Comment: 1 cup coffee a day - Recreational Drug Use Recreational Drug Use: No - Living Situation & Occupation Living situation: Reports: Occupation: Employed H&P Review of Systems - Review of Systems: Review Of Systems: See Below General: Reports: Weakness, Fatigue HEENT: Reports: No Symptoms Pulmonary: Reports: Shortness of Breath, Cough Cardiovascular: Reports: Chest Pain, Syncope, Blood Pressure Problem. Denies: Palpitations, Dyspnea on Exertion, Edema Gastrointestinal: Reports: No Symptoms Genitourinary: Reports: No Symptoms Musculoskeletal: Reports: No Symptoms Skin: Reports: No Symptoms Psychiatric: Reports: No Symptoms Neurological: Reports: No Symptoms Hematologic/Lymphatic: Reports: No Symptoms Immunologic: Reports: No Symptoms Exam - Exam Exam: See Below - Vital Signs Vital Signs: Last Vital Signs Temp 96.0 F L 03/23/20 14:29 Pulse 77 03/23/20 19:10 Resp 20 03/23/20 19:10 BP 95/58 L 03/23/20 14:29 Pulse Ox 94 L 03/23/20 19:10 Weight: 295 lb - Exam Quality Assessment: DVT Prophylaxis General: Alert, Oriented, Cooperative HEENT: Conjunctiva Clear, EOMI, Pupils Equal, Pupils Reactive, PERRLA Neck: Supple, Trachea Midline. No: JVD Lungs: Clear to Auscultation, Normal Respiratory Effort. No: Crackles, Rales, Rhonchi, Rub, Stridor Cardiovascular: Regular Rate, Regular Rhythm GI/Abdominal Exam: Normal Bowel Sounds, Soft, Non-Tender. No: Guarding, Rigid, Rebound, Tender Extremities: Normal Inspection, Normal Range of Motion, Non-Tender, No Pedal Edema, Normal Capillary Refill Peripheral Pulses: 2+: Brachial (L), Brachial (R), Popliteal (L), Popliteal (R) Skin: Warm, Dry, Intact Neurological: Cranial Nerves Intact, Reflexes Equal Bilateral Neuro Extensive - Mental Status: Alert, Oriented x3, Normal Mood/Affect, Normal Cognition, Memory Intact Neuro Extensive - Motor, Sensory, Reflexes: CN II-XII Intact DTR: 2+: Bicep (L), Bicep (R), Patella (L), Patella (R) Psychiatric: Alert, Normal Affect, Normal Mood - Patient Data Lab Results Last 24 hrs: Laboratory Results - last 24 hr 03/23/20 03/23/20 03/23/20 Range/Units 15:10 15:10 15:10 WBC 7.60 (4.0-11.0) K/uL RBC 4.93 (4.30-5.90) M/uL Hgb 13.1 (12.0-16.0) g/dL Hct 41.0 (36.0-46.0) % MCV 83.2 (80.0-98.0) fL MCH 26.6 L (27.0-32.0) pg MCHC 32.0 (31.0-37.0) g/dL RDW Std Deviation 40.8 (28.0-62.0) fl RDW Coeff of Speedy 14 (11.0-15.0) % Plt Count 113 L (150-400) K/uL MPV 11.50 (7.40-12.00) fL Neut % (Auto) 85.0 H (48.0-80.0) % Lymph % (Auto) 6.7 L (16.0-40.0) % [place] % (Auto) 7.9 (0.0-15.0) % Eos % (Auto) 0.4 (0.0-7.0) % Baso % (Auto) 0.0 (0.0-1.5) % Neut # (Auto) 6.5 H (1.4-5.7) K/uL Lymph # (Auto) 0.5 L (0.6-2.4) K/uL [place] # (Auto) 0.6 (0.0-0.8) K/uL Eos # (Auto) 0.0 (0.0-0.7) K/uL Baso # (Auto) 0.0 (0.0-0.1) K/uL Nucleated RBC % 0.0 /100WBC Nucleated RBCs # 0 K/uL INR D-Dimer, Quantitative 1.91 H (0.0-0.50) mg/L FEU Sodium 137 (136-145) mmol/L Potassium 4.5 (3.5-5.1) mmol/L Chloride 100 (98-107) mmol/L Carbon Dioxide 27.4 (21.0-32.0) mmol/L BUN 64 H (7.0-18.0) mg/dL Creatinine 1.4 H (0.6-1.0) mg/dL Est Cr Clr Drug Dosing 50.11 mL/min Estimated GFR (MDRD) 40.3 ml/min Glucose 137 H (74-106) mg/dL Calcium 8.6 (8.5-10.1) mg/dL Total Bilirubin 0.6 (0.2-1.0) mg/dL AST 16 (15-37) IU/L ALT 27 (14-63) IU/L Alkaline Phosphatase 99 (46-116) U/L Troponin I < 0.050 (0.000-0.056) ng/mL B-Natriuretic Peptide (<100) PG/ML Total Protein 6.9 (6.4-8.2) g/dL Albumin 2.9 L (3.4-5.0) g/dL Globulin 4.0 (2.6-4.0) g/dL Albumin/Globulin Ratio 0.7 L (0.9-1.6) Urine Color Urine Appearance Urine pH (5.0-8.0) Ur Specific [place] (1.001-1.035) Urine Protein (NEGATIVE) mg/dL Urine Glucose (UA) (NEGATIVE) mg/dL Urine Ketones (NEGATIVE) mg/dL Urine Occult Blood (NEGATIVE) Urine Nitrite (NEGATIVE) Urine Bilirubin (NEGATIVE) Urine Urobilinogen (<2.0) EU/dL Ur Leukocyte Esterase (NEGATIVE) SARS-CoV-2 RNA (EDDIE) (NEGATIVE) 03/23/20 03/23/20 03/23/20 Range/Units 15:10 15:10 15:35 WBC (4.0-11.0) K/uL RBC (4.30-5.90) M/uL Hgb (12.0-16.0) g/dL Hct (36.0-46.0) % MCV (80.0-98.0) fL MCH (27.0-32.0) pg MCHC (31.0-37.0) g/dL RDW Std Deviation (28.0-62.0) fl RDW Coeff of Speedy (11.0-15.0) % Plt Count (150-400) K/uL MPV (7.40-12.00) fL Neut % (Auto) (48.0-80.0) % Lymph % (Auto) (16.0-40.0) % [place] % (Auto) (0.0-15.0) % Eos % (Auto) (0.0-7.0) % Baso % (Auto) (0.0-1.5) % Neut # (Auto) (1.4-5.7) K/uL Lymph # (Auto) (0.6-2.4) K/uL [place] # (Auto) (0.0-0.8) K/uL Eos # (Auto) (0.0-0.7) K/uL Baso # (Auto) (0.0-0.1) K/uL Nucleated RBC % /100WBC Nucleated RBCs # K/uL INR 1.05 D-Dimer, Quantitative (0.0-0.50) mg/L FEU Sodium (136-145) mmol/L Potassium (3.5-5.1) mmol/L Chloride (98-107) mmol/L Carbon Dioxide (21.0-32.0) mmol/L BUN (7.0-18.0) mg/dL Creatinine (0.6-1.0) mg/dL Est Cr Clr Drug Dosing mL/min Estimated GFR (MDRD) ml/min Glucose (74-106) mg/dL Calcium (8.5-10.1) mg/dL Total Bilirubin (0.2-1.0) mg/dL AST (15-37) IU/L ALT (14-63) IU/L Alkaline Phosphatase (46-116) U/L Troponin I (0.000-0.056) ng/mL B-Natriuretic Peptide 13 (<100) PG/ML Total Protein (6.4-8.2) g/dL Albumin (3.4-5.0) g/dL Globulin (2.6-4.0) g/dL Albumin/Globulin Ratio (0.9-1.6) Urine Color Urine Appearance Urine pH (5.0-8.0) Ur Specific [place] (1.001-1.035) Urine Protein (NEGATIVE) mg/dL Urine Glucose (UA) (NEGATIVE) mg/dL Urine Ketones (NEGATIVE) mg/dL Urine Occult Blood (NEGATIVE) Urine Nitrite (NEGATIVE) Urine Bilirubin (NEGATIVE) Urine Urobilinogen (<2.0) EU/dL Ur Leukocyte Esterase (NEGATIVE) SARS-CoV-2 RNA (EDDIE) POSITIVE H (NEGATIVE) 03/23/20 03/23/20 Range/Units 18:10 18:16 WBC (4.0-11.0) K/uL RBC (4.30-5.90) M/uL Hgb (12.0-16.0) g/dL Hct (36.0-46.0) % MCV (80.0-98.0) fL MCH (27.0-32.0) pg MCHC (31.0-37.0) g/dL RDW Std Deviation (28.0-62.0) fl RDW Coeff of Speedy (11.0-15.0) % Plt Count (150-400) K/uL MPV (7.40-12.00) fL Neut % (Auto) (48.0-80.0) % Lymph % (Auto) (16.0-40.0) % [place] % (Auto) (0.0-15.0) % Eos % (Auto) (0.0-7.0) % Baso % (Auto) (0.0-1.5) % Neut # (Auto) (1.4-5.7) K/uL Lymph # (Auto) (0.6-2.4) K/uL [place] # (Auto) (0.0-0.8) K/uL Eos # (Auto) (0.0-0.7) K/uL Baso # (Auto) (0.0-0.1) K/uL Nucleated RBC % /100WBC Nucleated RBCs # K/uL INR D-Dimer, Quantitative (0.0-0.50) mg/L FEU Sodium (136-145) mmol/L Potassium (3.5-5.1) mmol/L Chloride (98-107) mmol/L Carbon Dioxide (21.0-32.0) mmol/L BUN (7.0-18.0) mg/dL Creatinine (0.6-1.0) mg/dL Est Cr Clr Drug Dosing mL/min Estimated GFR (MDRD) ml/min Glucose (74-106) mg/dL Calcium (8.5-10.1) mg/dL Total Bilirubin (0.2-1.0) mg/dL AST (15-37) IU/L ALT (14-63) IU/L Alkaline Phosphatase (46-116) U/L Troponin I < 0.050 (0.000-0.056) ng/mL B-Natriuretic Peptide (<100) PG/ML Total Protein (6.4-8.2) g/dL Albumin (3.4-5.0) g/dL Globulin (2.6-4.0) g/dL Albumin/Globulin Ratio (0.9-1.6) Urine Color YELLOW Urine Appearance CLEAR Urine pH 5.0 (5.0-8.0) Ur Specific [place] 1.020 (1.001-1.035) Urine Protein NEGATIVE (NEGATIVE) mg/dL Urine Glucose (UA) NEGATIVE (NEGATIVE) mg/dL Urine Ketones NEGATIVE (NEGATIVE) mg/dL Urine Occult Blood NEGATIVE (NEGATIVE) Urine Nitrite NEGATIVE (NEGATIVE) Urine Bilirubin NEGATIVE (NEGATIVE) Urine Urobilinogen 0.2 (<2.0) EU/dL Ur Leukocyte Esterase NEGATIVE (NEGATIVE) SARS-CoV-2 RNA (EDDIE) (NEGATIVE) Result Diagrams: 03/23/20 15:10 03/23/20 15:10 Sepsis Event Note - Evaluation Sepsis Screening Result: No Definite Risk - Focused Exam Vital Signs: Vital Signs Temp Pulse Resp BP Pulse Ox 03/23/20 19:10 77 20 94 L 03/23/20 14:29 96.0 F L 81 20 95/58 L 99 - Problem List (1) CORNELIA (acute kidney injury) SNOMED Code(s): 76291943, 10955896 ICD Code: N17.9 - ACUTE KIDNEY FAILURE, UNSPECIFIED Status: Acute Current Visit: Yes (2) COVID-19 SNOMED Code(s): 209057518 ICD Code: U07.1 - COVID-19 Status: Acute Current Visit: Yes (3) Chest pain, rule out acute myocardial infarction SNOMED Code(s): 48854782 ICD Code: R07.9 - CHEST PAIN, UNSPECIFIED Status: Acute Current Visit: Yes (4) Syncope SNOMED Code(s): 381091735 ICD Code: R55 - SYNCOPE AND COLLAPSE Status: Acute Current Visit: Yes Qualifiers: Syncope type: unspecified Qualified Code(s): R55 - Syncope and collapse Problem List Initiated/Reviewed/Updated: Yes Orders Last 24hrs: Active Orders 24 hr Category Date Time Status Admission Status [Patient Status] [ADT] Stat ADT 03/23/20 18:32 Active Antiembolic Devices [RC] PER UNIT ROUTINE Care 03/23/20 19:06 Ordered Blood Glucose Check, Bedside [RC] TIDMEALS Care 03/23/20 19:04 Ordered EKG Documentation Completion [RC] STAT Care 03/23/20 14:25 Active Orthostatic Vital Signs [RC] ASDIRECTED Care 03/23/20 14:26 Active Oxygen Therapy [RC] PRN Care 03/23/20 19:04 Ordered RT Aerosol Therapy [RC] ASDIRECTED Care 03/23/20 19:09 Active RT Post Treatment Assessment [RC] Click to Edit Care 03/23/20 19:21 Ordered RT Pre-Treatment Assessment [RC] Click to Edit Care 03/23/20 19:21 Ordered Telemetry Monitoring [Cardiac Monitoring] [RC] . Care 03/23/20 19:13 Ordered DIRECTED Up ad Samaria [RC] ASDIRECTED Care 03/23/20 19:04 Ordered VTE/DVT Education [RC] PER UNIT ROUTINE Care 03/23/20 19:04 Ordered Vital Signs [RC] Q4H Care 03/23/20 19:04 Ordered [place] [employer] Diet [DIET] Diet 03/23/20 Dinner Ordered Fluid Restriction [DIET] Diet 03/24/20 Breakfast Ordered Heart Healthy Diet [DIET] Diet 03/23/20 Dinner Ordered CBC WITH AUTO DIFF [HEME] AM Lab 03/24/20 05:11 Ordered COMPREHENSIVE METABOLIC PN,CMP [CHEM] AM Lab 03/24/20 05:11 Ordered LACTATE WITH REFLEX [BG] Stat Lab 03/23/20 19:21 Ordered MAGNESIUM [CHEM] AM Lab 03/24/20 05:11 Ordered MAGNESIUM [CHEM] Stat Lab 03/23/20 19:23 Ordered PHOSPHORUS [CHEM] AM Lab 03/24/20 05:11 Ordered Albuterol/Ipratropium [DuoNeb 3.0-0.5 MG/3 ML] Med 03/23/20 19:04 Ordered 3 ml NEB Q4HRRT PRN Aspirin Med 03/24/20 09:00 Ordered 81 mg PO DAILY Benzonatate [Tessalon Perles] Med 03/23/20 19:16 Ordered 200 mg PO TID PRN Clopidogrel [Plavix] Med 03/24/20 09:00 Ordered 75 mg PO DAILY Fluticasone Propionate [Flovent HFA 110 MCG] Med 03/23/20 21:00 Ordered 2 inh INH BID Levofloxacin/Dextrose 5%-Water [Levaquin in D5W 750 MG/ Med 03/23/20 19:15 Ordered 150 ML] 750 mg Premix Bag 1 bag IV Q48H Nitroglycerin [Nitrostat] Med 03/23/20 19:16 Ordered 0.4 mg SL .EVERY 5 MINUTES PRN Ondansetron [Zofran ODT] Med 03/23/20 19:04 Ordered 4 mg PO Q4H PRN Pantoprazole [ProTONIX] Med 03/24/20 09:00 Ordered 40 mg PO DAILY Sertraline [Zoloft] Med 03/24/20 09:00 Ordered 200 mg PO DAILY Sodium Chloride 0.9% [Saline Flush] Med 03/23/20 14:25 Active 10 ml FLUSH ASDIRECTED PRN Sodium Chloride 0.9% [Saline Flush] Med 03/23/20 14:25 Active 2.5 ml FLUSH ASDIRECTED PRN atorvaSTATin [Lipitor] Med 03/23/20 21:00 Ordered 80 mg PO BEDTIME dexAMETHasone Med 03/23/20 19:30 Ordered 6 mg PO DAILY Saline Lock Insert [OM.PC] Stat Oth 03/23/20 14:25 Ordered Sequential Compression Device [OM.PC] Per Unit Routine Oth 03/23/20 19:05 Ordered Resuscitation Status Routine Resus Stat 03/23/20 19:04 Ordered Medication Orders Albuterol/Ipratropium (Duoneb 3.0-0.5 Mg/3 Ml) 3 ml NEB Q4HRRT PRN PRN Reason: Shortness Of Breath/wheezing Aspirin (Aspirin) 81 mg PO DAILY DUNIA Atorvastatin Calcium (Lipitor) 80 mg PO BEDTIME DUNIA Benzonatate (Tessalon Perles) 200 mg PO TID PRN PRN Reason: Cough Clopidogrel Bisulfate (Plavix) 75 mg PO DAILY [facility] Dexamethasone (Dexamethasone) 6 mg PO DAILY [facility] Fluticasone Propionate (Flovent Hfa 110 Mcg) gm INH BID [facility] Levofloxacin/Dextrose 750 mg/ (Premix) 150 mls @ 100 mls/hr IV Q48H [facility] Nitroglycerin (Nitrostat) 0.4 mg SL .EVERY 5 MINUTES PRN PRN Reason: Chest Pain Ondansetron HCl (Zofran Odt) 4 mg PO Q4H PRN PRN Reason: nausea, able to take PO Pantoprazole Sodium (Protonix) 40 mg PO DAILY [facility] Sertraline HCl (Zoloft) 200 mg PO DAILY [facility] Sodium Chloride (Saline Flush) 10 ml FLUSH ASDIRECTED PRN PRN Reason: Keep Vein Open Last Admin: 03/23/20 19:05 Dose: 10 ml Documented by: JENNY Sodium Chloride (Saline Flush) 2.5 ml FLUSH ASDIRECTED PRN PRN Reason: Keep Vein Open Last Admin: 03/23/20 19:05 Dose: 2.5 ml Documented by: JENNY Assessment/Plan Comment:: Pt Is a 49 y/o F admitted multiple episodes of syncope, weakness, s.o.b, chest pain, with known recent diagnosis/ treatment of COVID 19. 1. Chest pain: s.o.b, left sided intermittent 07/16. Continue to monitor on Tele, trend Troponin's Q6 3x, EKG was normal, CXR- no acute cardiopulmonary findings. CT angio was negative for PE with COVID consist ground glass opacities. 2. Syncope: CT head- pending, electrolytes stable, will continue to monitor with morning BMP. Recent BP medication changes, states typically BP remains elevated as high as 190's systolic. After recent admission in the 90's. Therefore will hold BP medications. Can recheck orthostatics tomorrow. 3. CORNELIA- Bun 64, Cr 1.4, avoid nephrotoxic agents. Was given fluids in ED. H/o CHF, therefore limit fluids. 4.COVID 19: Restart on dexamethasone, combivent Q4H, Levaquin 750 Q48H renally dosed due to CORNELIA. Enoxaparin SubQ 40mg Q24H for DVT ppx. 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 Admit to [facility] for observation, GI ppx 40 pantoprazole, DVT ppx with enoxaparin/ SCD, Diabetic diet with TIDAC accuchecks, H/o CHF therefore strict I/O's and restrict to 2000ml fluids.
[2020-03-23] MEDS: Dexamethasone 4 MG Tab PO SCH (20:32)
[2020-03-23] MEDS: Levofloxacin/Dextrose 5%-Water 750 MG in Premix Bag 1 BAG IV SCH (20:34)
[2020-03-23] MEDS: Enoxaparin 40 MG/0.4 ML Syringe SUBCUT SCH (21:42)
[2020-03-23] MEDS: Fluticasone Propionate 110 MCG/Puff 12 GM Inhaler INH SCH (23:55)
[2020-03-24 06:15] LABS: CARBON DIOXIDE,CO2 25.6 mmol/L (21.0-32.0); POTASSIUM,K 5.3 mmol/L (3.5-5.1)
[2020-03-24] MEDS ORDERED: 50% Dextrose in Water 50 ML Syringe IV PRN ×2 (08:03→20:26)
[2020-03-24] MEDS ORDERED: Glucagon,Human Recombinant 1 MG Vial IM PRN ×4 (08:03→20:44)
--- NOTE | 2020-03-24 08:07 | PCM.PN ---
- General Info Date of Service: 03/24/20 Admission Dx/Problem (Free Text): Admission Diagnosis/Problem Admission Diagnosis/Problem Syncope due to orthostatic hypotension Subjective Update: Feeling very fatigued this morning with complaints of shortness of breath lilian cially with any exertion. Mild chest tightness almost burning within her lungs feeling. Nonproductive dry cough poor appetite. Reports that this shortness of breath is definitely different than previous admission. No peripheral edema Functional Status: Reports: Pain Controlled, Tolerating Diet, Ambulating (To bathroom and back), Urinating - Review of Systems General: Reports: Weakness (Generalized), Malaise HEENT: Reports: Headaches, Sinus Congestion, Sore Throat Pulmonary: Reports: Shortness of Breath, Pleuritic Chest Pain (Burning in her lungs), Cough. Denies: Hemoptysis, Wheezing Cardiovascular: Reports: Dyspnea on Exertion. Denies: Edema Gastrointestinal: Reports: No Symptoms. Denies: Abdominal Pain, Nausea, Vomiting Genitourinary: Reports: No Symptoms Musculoskeletal: Reports: No Symptoms Skin: Reports: No Symptoms Neurological: Reports: No Symptoms Psychiatric: Reports: No Symptoms - Patient Data Vitals - Most Recent: Last Vital Signs Temp 96.3 F L 03/24/20 03:00 Pulse 74 03/24/20 03:00 Resp 20 03/24/20 03:00 BP 130/65 03/24/20 03:00 Pulse Ox 94 L 03/24/20 05:30 Orthostatic Blood Pressure [ 71/37 Standing] Orthostatic Blood Pressure [ 79/40 Sitting] Orthostatic Blood Pressure [ 101/66 Supine] Weight - Most Recent: 136.667 kg I&O - Last 24 Hours: Intake & Output 03/23/20 03/24/20 03/24/20 22:59 06:59 14:59 Intake Total 2150 Output Total 1000 Balance 1150 Lab Results Last 24 Hours: Laboratory Results - last 24 hr 03/23/20 03/23/20 03/23/20 Range/Units 15:10 15:10 15:10 WBC 7.60 (4.0-11.0) K/uL RBC 4.93 (4.30-5.90) M/uL Hgb 13.1 (12.0-16.0) g/dL Hct 41.0 (36.0-46.0) % MCV 83.2 (80.0-98.0) fL MCH 26.6 L (27.0-32.0) pg MCHC 32.0 (31.0-37.0) g/dL RDW Std Deviation 40.8 (28.0-62.0) fl RDW Coeff of Speedy 14 (11.0-15.0) % Plt Count 113 L (150-400) K/uL MPV 11.50 (7.40-12.00) fL Neut % (Auto) 85.0 H (48.0-80.0) % Lymph % (Auto) 6.7 L (16.0-40.0) % [place] % (Auto) 7.9 (0.0-15.0) % Eos % (Auto) 0.4 (0.0-7.0) % Baso % (Auto) 0.0 (0.0-1.5) % Neut # (Auto) 6.5 H (1.4-5.7) K/uL Lymph # (Auto) 0.5 L (0.6-2.4) K/uL [place]igo # (Auto) 0.6 (0.0-0.8) K/uL Eos # (Auto) 0.0 (0.0-0.7) K/uL Baso # (Auto) 0.0 (0.0-0.1) K/uL Nucleated RBC % 0.0 /100WBC Nucleated RBCs # 0 K/uL INR D-Dimer, Quantitative 1.91 H (0.0-0.50) mg/L FEU Lactate (0.20-2.00) mmol/L Sodium 137 (136-145) mmol/L Potassium 4.5 (3.5-5.1) mmol/L Chloride 100 (98-107) mmol/L Carbon Dioxide 27.4 (21.0-32.0) mmol/L BUN 64 H (7.0-18.0) mg/dL Creatinine 1.4 H (0.6-1.0) mg/dL Est Cr Clr Drug Dosing 50.11 mL/min Estimated GFR (MDRD) 40.3 ml/min Glucose 137 H (74-106) mg/dL POC Glucose (60-110) mg/dL Calcium 8.6 (8.5-10.1) mg/dL Phosphorus (2.6-4.7) mg/dL Magnesium (1.8-2.4) mg/dL Total Bilirubin 0.6 (0.2-1.0) mg/dL AST 16 (15-37) IU/L ALT 27 (14-63) IU/L Alkaline Phosphatase 99 (46-116) U/L Troponin I < 0.050 (0.000-0.056) ng/mL B-Natriuretic Peptide (<100) PG/ML Total Protein 6.9 (6.4-8.2) g/dL Albumin 2.9 L (3.4-5.0) g/dL Globulin 4.0 (2.6-4.0) g/dL Albumin/Globulin Ratio 0.7 L (0.9-1.6) Urine Color Urine Appearance Urine pH (5.0-8.0) Ur Specific Newton (1.001-1.035) Urine Protein (NEGATIVE) mg/dL Urine Glucose (UA) (NEGATIVE) mg/dL Urine Ketones (NEGATIVE) mg/dL Urine Occult Blood (NEGATIVE) Urine Nitrite (NEGATIVE) Urine Bilirubin (NEGATIVE) Urine Urobilinogen (<2.0) EU/dL Ur Leukocyte Esterase (NEGATIVE) SARS-CoV-2 RNA (EDDIE) (NEGATIVE) 03/23/20 03/23/20 03/23/20 Range/Units 15:10 15:10 15:35 WBC (4.0-11.0) K/uL RBC (4.30-5.90) M/uL Hgb (12.0-16.0) g/dL Hct (36.0-46.0) % MCV (80.0-98.0) fL MCH (27.0-32.0) pg MCHC (31.0-37.0) g/dL RDW Std Deviation (28.0-62.0) fl RDW Coeff of Speedy (11.0-15.0) % Plt Count (150-400) K/uL MPV (7.40-12.00) fL Neut % (Auto) (48.0-80.0) % Lymph % (Auto) (16.0-40.0) % Vigo % (Auto) (0.0-15.0) % Eos % (Auto) (0.0-7.0) % Baso % (Auto) (0.0-1.5) % Neut # (Auto) (1.4-5.7) K/uL Lymph # (Auto) (0.6-2.4) K/uL [place]igo # (Auto) (0.0-0.8) K/uL Eos # (Auto) (0.0-0.7) K/uL Baso # (Auto) (0.0-0.1) K/uL Nucleated RBC % /100WBC Nucleated RBCs # K/uL INR 1.05 D-Dimer, Quantitative (0.0-0.50) mg/L FEU Lactate (0.20-2.00) mmol/L Sodium (136-145) mmol/L Potassium (3.5-5.1) mmol/L Chloride (98-107) mmol/L Carbon Dioxide (21.0-32.0) mmol/L BUN (7.0-18.0) mg/dL Creatinine (0.6-1.0) mg/dL Est Cr Clr Drug Dosing mL/min Estimated GFR (MDRD) ml/min Glucose (74-106) mg/dL POC Glucose (60-110) mg/dL Calcium (8.5-10.1) mg/dL Phosphorus (2.6-4.7) mg/dL Magnesium (1.8-2.4) mg/dL Total Bilirubin (0.2-1.0) mg/dL AST (15-37) IU/L ALT (14-63) IU/L Alkaline Phosphatase (46-116) U/L Troponin I (0.000-0.056) ng/mL B-Natriuretic Peptide 13 (<100) PG/ML Total Protein (6.4-8.2) g/dL Albumin (3.4-5.0) g/dL Globulin (2.6-4.0) g/dL Albumin/Globulin Ratio (0.9-1.6) Urine Color Urine Appearance Urine pH (5.0-8.0) Ur Specific Newton (1.001-1.035) Urine Protein (NEGATIVE) mg/dL Urine Glucose (UA) (NEGATIVE) mg/dL Urine Ketones (NEGATIVE) mg/dL Urine Occult Blood (NEGATIVE) Urine Nitrite (NEGATIVE) Urine Bilirubin (NEGATIVE) Urine Urobilinogen (<2.0) EU/dL Ur Leukocyte Esterase (NEGATIVE) SARS-CoV-2 RNA (EDDIE) POSITIVE H (NEGATIVE) 03/23/20 03/23/20 03/23/20 Range/Units 18:10 18:16 19:40 WBC (4.0-11.0) K/uL RBC (4.30-5.90) M/uL Hgb (12.0-16.0) g/dL Hct (36.0-46.0) % MCV (80.0-98.0) fL MCH (27.0-32.0) pg MCHC (31.0-37.0) g/dL RDW Std Deviation (28.0-62.0) fl RDW Coeff of Speedy (11.0-15.0) % Plt Count (150-400) K/uL MPV (7.40-12.00) fL Neut % (Auto) (48.0-80.0) % Lymph % (Auto) (16.0-40.0) % Vigo % (Auto) (0.0-15.0) % Eos % (Auto) (0.0-7.0) % Baso % (Auto) (0.0-1.5) % Neut # (Auto) (1.4-5.7) K/uL Lymph # (Auto) (0.6-2.4) K/uL Vigo # (Auto) (0.0-0.8) K/uL Eos # (Auto) (0.0-0.7) K/uL Baso # (Auto) (0.0-0.1) K/uL Nucleated RBC % /100WBC Nucleated RBCs # K/uL INR D-Dimer, Quantitative (0.0-0.50) mg/L FEU Lactate 1.0 (0.20-2.00) mmol/L Sodium (136-145) mmol/L Potassium (3.5-5.1) mmol/L Chloride (98-107) mmol/L Carbon Dioxide (21.0-32.0) mmol/L BUN (7.0-18.0) mg/dL Creatinine (0.6-1.0) mg/dL Est Cr Clr Drug Dosing mL/min Estimated GFR (MDRD) ml/min Glucose (74-106) mg/dL POC Glucose (60-110) mg/dL Calcium (8.5-10.1) mg/dL Phosphorus (2.6-4.7) mg/dL Magnesium (1.8-2.4) mg/dL Total Bilirubin (0.2-1.0) mg/dL AST (15-37) IU/L ALT (14-63) IU/L Alkaline Phosphatase (46-116) U/L Troponin I < 0.050 (0.000-0.056) ng/mL B-Natriuretic Peptide (<100) PG/ML Total Protein (6.4-8.2) g/dL Albumin (3.4-5.0) g/dL Globulin (2.6-4.0) g/dL Albumin/Globulin Ratio (0.9-1.6) Urine Color YELLOW Urine Appearance CLEAR Urine pH 5.0 (5.0-8.0) Ur Specific [place] 1.020 (1.001-1.035) Urine Protein NEGATIVE (NEGATIVE) mg/dL Urine Glucose (UA) NEGATIVE (NEGATIVE) mg/dL Urine Ketones NEGATIVE (NEGATIVE) mg/dL Urine Occult Blood NEGATIVE (NEGATIVE) Urine Nitrite NEGATIVE (NEGATIVE) Urine Bilirubin NEGATIVE (NEGATIVE) Urine Urobilinogen 0.2 (<2.0) EU/dL Ur Leukocyte Esterase NEGATIVE (NEGATIVE) SARS-CoV-2 RNA (EDDIE) (NEGATIVE) 03/23/20 03/24/20 03/24/20 Range/Units 19:40 05:30 05:40 WBC 3.94 L (4.0-11.0) K/uL RBC 4.67 (4.30-5.90) M/uL Hgb 12.5 (12.0-16.0) g/dL Hct 39.1 (36.0-46.0) % MCV 83.7 (80.0-98.0) fL MCH 26.8 L (27.0-32.0) pg MCHC 32.0 (31.0-37.0) g/dL RDW Std Deviation 41.5 (28.0-62.0) fl RDW Coeff of Speedy 14 (11.0-15.0) % Plt Count 100 L (150-400) K/uL MPV 11.40 (7.40-12.00) fL Neut % (Auto) 87.8 H (48.0-80.0) % Lymph % (Auto) 8.1 L (16.0-40.0) % [place]igo % (Auto) 4.1 (0.0-15.0) % Eos % (Auto) 0.0 (0.0-7.0) % Baso % (Auto) 0.0 (0.0-1.5) % Neut # (Auto) 3.5 (1.4-5.7) K/uL Lymph # (Auto) 0.3 L (0.6-2.4) K/uL Vigo # (Auto) 0.2 (0.0-0.8) K/uL Eos # (Auto) 0.0 (0.0-0.7) K/uL Baso # (Auto) 0.0 (0.0-0.1) K/uL Nucleated RBC % 0.0 /100WBC Nucleated RBCs # 0 K/uL INR D-Dimer, Quantitative (0.0-0.50) mg/L FEU Lactate (0.20-2.00) mmol/L Sodium (136-145) mmol/L Potassium (3.5-5.1) mmol/L Chloride (98-107) mmol/L Carbon Dioxide (21.0-32.0) mmol/L BUN (7.0-18.0) mg/dL Creatinine (0.6-1.0) mg/dL Est Cr Clr Drug Dosing mL/min Estimated GFR (MDRD) ml/min Glucose (74-106) mg/dL POC Glucose 380 H (60-110) mg/dL Calcium (8.5-10.1) mg/dL Phosphorus (2.6-4.7) mg/dL Magnesium 1.9 (1.8-2.4) mg/dL Total Bilirubin (0.2-1.0) mg/dL AST (15-37) IU/L ALT (14-63) IU/L Alkaline Phosphatase (46-116) U/L Troponin I (0.000-0.056) ng/mL B-Natriuretic Peptide (<100) PG/ML Total Protein (6.4-8.2) g/dL Albumin (3.4-5.0) g/dL Globulin (2.6-4.0) g/dL Albumin/Globulin Ratio (0.9-1.6) Urine Color Urine Appearance Urine pH (5.0-8.0) Ur Specific Newton (1.001-1.035) Urine Protein (NEGATIVE) mg/dL Urine Glucose (UA) (NEGATIVE) mg/dL Urine Ketones (NEGATIVE) mg/dL Urine Occult Blood (NEGATIVE) Urine Nitrite (NEGATIVE) Urine Bilirubin (NEGATIVE) Urine Urobilinogen (<2.0) EU/dL Ur Leukocyte Esterase (NEGATIVE) SARS-CoV-2 RNA (EDDIE) (NEGATIVE) 03/24/20 Range/Units 05:40 WBC (4.0-11.0) K/uL RBC (4.30-5.90) M/uL Hgb (12.0-16.0) g/dL Hct (36.0-46.0) % MCV (80.0-98.0) fL MCH (27.0-32.0) pg MCHC (31.0-37.0) g/dL RDW Std Deviation (28.0-62.0) fl RDW Coeff of Speedy (11.0-15.0) % Plt Count (150-400) K/uL MPV (7.40-12.00) fL Neut % (Auto) (48.0-80.0) % Lymph % (Auto) (16.0-40.0) % Vigo % (Auto) (0.0-15.0) % Eos % (Auto) (0.0-7.0) % Baso % (Auto) (0.0-1.5) % Neut # (Auto) (1.4-5.7) K/uL Lymph # (Auto) (0.6-2.4) K/uL Vigo # (Auto) (0.0-0.8) K/uL Eos # (Auto) (0.0-0.7) K/uL Baso # (Auto) (0.0-0.1) K/uL Nucleated RBC % /100WBC Nucleated RBCs # K/uL INR D-Dimer, Quantitative (0.0-0.50) mg/L FEU Lactate (0.20-2.00) mmol/L Sodium 135 L (136-145) mmol/L Potassium 5.3 H (3.5-5.1) mmol/L Chloride 100 (98-107) mmol/L Carbon Dioxide 25.6 (21.0-32.0) mmol/L BUN 62 H (7.0-18.0) mg/dL Creatinine 1.4 H (0.6-1.0) mg/dL Est Cr Clr Drug Dosing 50.11 mL/min Estimated GFR (MDRD) 40.3 ml/min Glucose 340 H (74-106) mg/dL POC Glucose (60-110) mg/dL Calcium 8.3 L (8.5-10.1) mg/dL Phosphorus 4.9 H (2.6-4.7) mg/dL Magnesium 2.2 (1.8-2.4) mg/dL Total Bilirubin 0.4 (0.2-1.0) mg/dL AST 19 (15-37) IU/L ALT 27 (14-63) IU/L Alkaline Phosphatase 90 (46-116) U/L Troponin I (0.000-0.056) ng/mL B-Natriuretic Peptide (<100) PG/ML Total Protein 6.8 (6.4-8.2) g/dL Albumin 2.6 L (3.4-5.0) g/dL Globulin 4.2 H (2.6-4.0) g/dL Albumin/Globulin Ratio 0.6 L (0.9-1.6) Urine Color Urine Appearance Urine pH (5.0-8.0) Ur Specific Newton (1.001-1.035) Urine Protein (NEGATIVE) mg/dL Urine Glucose (UA) (NEGATIVE) mg/dL Urine Ketones (NEGATIVE) mg/dL Urine Occult Blood (NEGATIVE) Urine Nitrite (NEGATIVE) Urine Bilirubin (NEGATIVE) Urine Urobilinogen (<2.0) EU/dL Ur Leukocyte Esterase (NEGATIVE) SARS-CoV-2 RNA (EDDIE) (NEGATIVE) Med Orders - Current: Current Medications Albuterol/Ipratropium (Duoneb 3.0-0.5 Mg/3 Ml) 3 ml NEB Q4HRRT PRN PRN Reason: Shortness Of Breath/wheezing Aspirin (Aspirin) 81 mg PO DAILY DUNIA Atorvastatin Calcium (Lipitor) 80 mg PO BEDTIME DUNIA Last Admin: 03/24/20 00:00 Dose: 80 mg Documented by: Benzonatate (Tessalon Perles) 200 mg PO TID PRN PRN Reason: Cough Last Admin: 03/24/20 00:00 Dose: 200 mg Documented by: Clopidogrel Bisulfate (Plavix) 75 mg PO DAILY [facility] Dexamethasone (Dexamethasone) 6 mg PO DAILY [facility] Last Admin: 03/23/20 20:32 Dose: 6 mg Documented by: Dextrose/Water (Dextrose 50% In Water) 50 ml IV ASDIRECTED PRN PRN Reason: Hypoglycemia Enoxaparin Sodium (Lovenox) 40 mg SUBCUT BEDTIME [facility] Last Admin: 03/23/20 21:42 Dose: 40 mg Documented by: Fluticasone Propionate (Flovent Hfa 110 Mcg) 0 gm INH BID [facility] Last Admin: 03/23/20 23:55 Dose: Not Given Documented by: Glucagon (Glucagen) 1 mg IM ASDIRECTED PRN PRN Reason: Hypoglycemia Levofloxacin/Dextrose 750 mg/ (Premix) 150 mls @ 100 mls/hr IV Q24H [facility] Last Admin: 03/23/20 20:34 Dose: 100 mls/hr Documented by: Insulin Aspart (Novolog) 0 unit SUBCUT TIDAC [facility]; Protocol Insulin Aspart (Novolog) 4 unit SUBCUT TIDAC [facility] Nitroglycerin (Nitrostat) 0.4 mg SL .EVERY 5 MINUTES PRN PRN Reason: Chest Pain Ondansetron HCl (Zofran Odt) 4 mg PO Q4H PRN PRN Reason: nausea, able to take PO Pantoprazole Sodium (Protonix) 40 mg PO DAILY [facility] Sertraline HCl (Zoloft) 200 mg PO DAILY [facility] Sodium Chloride (Saline Flush) 10 ml FLUSH ASDIRECTED PRN PRN Reason: Keep Vein Open Last Admin: 03/23/20 19:05 Dose: 10 ml Documented by: Sodium Chloride (Saline Flush) 2.5 ml FLUSH ASDIRECTED PRN PRN Reason: Keep Vein Open Last Admin: 03/23/20 19:05 Dose: 2.5 ml Documented by: Discontinued Medications Acetaminophen (Tylenol) 650 mg PO NOW ONE Stop: 03/23/20 17:51 Last Admin: 03/23/20 19:08 Dose: 650 mg Documented by: Enoxaparin Sodium (Lovenox) 40 mg SUBCUT Q24H [facility] Last Admin: 03/23/20 23:08 Dose: Not Given Documented by: Fentanyl (Fentanyl) 100 mcg IVPUSH ONETIME ONE Stop: 03/23/20 16:29 Last Admin: 03/23/20 19:06 Dose: Not Given Documented by: Sodium Chloride (Normal Saline) 1,000 mls @ 999 mls/hr IV STAT ONE Stop: 03/23/20 19:08 Last Admin: 03/23/20 19:08 Dose: 999 mls/hr Documented by: Iopamidol (Isovue Multipack-370 (76%)) 100 ml IVPUSH ONETIME ONE Stop: 03/23/20 17:47 Last Admin: 03/23/20 17:46 Dose: 100 ml Documented by: - Exam General: Alert, Oriented, Cooperative, Mild Distress (Dyspnea) HEENT: Mucous Membr. Moist/[place] Neck: Supple Lungs: Decreased Breath Sounds, Crackles, Rhonchi. No: Normal Respiratory Effort (Dyspnea) Cardiovascular: Regular Rate, Regular Rhythm, No Murmurs GI/Abdominal Exam: Normal Bowel Sounds, Soft, Non-Tender Back Exam: Normal Inspection, Full Range of Motion Extremities: Normal Inspection, Normal Range of Motion, Non-Tender, No Pedal Edema Neurological: No New Focal Deficit Psy/Mental Status: Alert, Normal Affect, Normal Mood Sepsis Event Note - Evaluation Sepsis Screening Result: No Definite Risk - Focused Exam Vital Signs: Vital Signs Temp Pulse Resp BP Pulse Ox 03/24/20 05:30 94 L 03/24/20 03:00 96.3 F L 74 20 130/65 92 L 03/23/20 23:44 97.3 F 72 20 99/65 92 L - Problem List & Annotations (1) CORNELIA (acute kidney injury) SNOMED Code(s): 55652686, 28259865 Code(s): N17.9 - ACUTE KIDNEY FAILURE, UNSPECIFIED Status: Acute Current Visit: Yes (2) COVID-19 SNOMED Code(s): 114580026 Code(s): U07.1 - COVID-19 Status: Acute Current Visit: Yes (3) Chest pain, rule out acute myocardial infarction SNOMED Code(s): 13413676 Code(s): R07.9 - CHEST PAIN, UNSPECIFIED Status: Acute Current Visit: Yes (4) Orthostatic hypotension SNOMED Code(s): 97891370 Code(s): I95.1 - ORTHOSTATIC HYPOTENSION Status: Acute Current Visit: Yes (5) Syncope SNOMED Code(s): 388861317 Code(s): R55 - SYNCOPE AND COLLAPSE Status: Acute Current Visit: Yes Qualifiers: Syncope type: unspecified Qualified Code(s): R55 - Syncope and collapse (6) (HFpEF) heart failure with preserved ejection fraction SNOMED Code(s): 380795795 Code(s): I50.30 - UNSPECIFIED DIASTOLIC (CONGESTIVE) HEART FAILURE Status: Acute Current Visit: No Qualifiers: Heart failure chronicity: acute on chronic Qualified Code(s): I50.33 - Acute on chronic diastolic (congestive) heart failure (7) Acute respiratory failure with hypoxia SNOMED Code(s): 48336046, 278954532 Code(s): J96.01 - ACUTE RESPIRATORY FAILURE WITH HYPOXIA Status: Acute Current Visit: No (8) DM type 2 (diabetes mellitus, type 2) SNOMED Code(s): 64364590 Code(s): E11.9 - TYPE 2 DIABETES MELLITUS WITHOUT COMPLICATIONS Status: Chronic Current Visit: No Qualifiers: Diabetes mellitus exterminator helper termite insulin use: with exterminator helper termite use Diabetes mellitus complication status: with hyperglycemia Qualified Code(s): E11.65 - Type 2 diabetes mellitus with hyperglycemia; Z79.4 - longterm (current) use of insulin (9) HLD (hyperlipidemia) SNOMED Code(s): 28853621 Code(s): E78.5 - HYPERLIPIDEMIA, UNSPECIFIED Status: Chronic Current Visit: No (10) HTN (hypertension) SNOMED Code(s): 12257653 Code(s): I10 - ESSENTIAL (PRIMARY) HYPERTENSION Status: Chronic Current Visit: No (11) Obesity SNOMED Code(s): 770034466, 202212960 Code(s): E66.9 - OBESITY, UNSPECIFIED Status: Chronic Current Visit: No Qualifiers: Serious obesity comorbidity presence: with serious comorbidity (12) History of CVA (cerebrovascular accident) SNOMED Code(s): 004656353 Code(s): Z86.73 - PRSNL HX OF TIA (TIA), AND CEREB INFRC W/O RESID DEFICITS Status: Acute Current Visit: Yes - Problem List Review Problem List Initiated/Reviewed/Updated: Yes - My Orders Last 24 Hours: My Active Orders 03/24/20 08:03 Dextrose 50% in Water 50 ml IV ASDIRECTED PRN Glucagon,Human Recombinant [GlucaGen] 1 mg IM ASDIRECTED PRN 03/24/20 08:04 Insulin Aspart [NovoLOG] See Protocol SUBCUT TIDAC 03/24/20 08:05 Height and Weight [RC] DAILY Intake and Output Strict [RC] ASDIRECTED 03/24/20 11:30 Insulin Aspart [NovoLOG] 4 unit SUBCUT TIDA - Plan Plan:: This 49-year-old female admitted with multiple syncopal episodes at home with weakness shortness of breath 1. Syncope -Orthostatic hypotension noted, improved today -Holding most antihypertensives will restart Coreg at lower dose. -Blood pressure is improving no further syncopal episodes. -Monitor on telemetry -Troponins trended due to some chest pain. All negative chest pain likely secondary to COVID-19 infection. No acute ACS suspected 2. COVID-19 infection -Feels more fatigue and coughing is worsening. -Currently on 5 to 6 L high flow nasal cannula -Completed remdesivir 5-day treatment course -Dexamethasone 6 mg p.o. daily, did not complete 10-day course previous admission. -Oxygen therapy to keep sats greater than 92%, wean as possible -Encouraged proning or at least left lateral decubitus position. Did talk more to her about this today encouraging this as much as possible along with the pathophysiology of how this to help oxygenation. She verbalized understanding -IS and flutter -Combivent inhaler every 4 hours as needed dyspnea -Lovenox 40 mg subcut daily - Monitor liver function daily -We will add guaifenesin with codeine as needed cough along with Tessalon Perles 3. CORNELIA -BUN 64 creatinine 1.4 stable from admission -Recently had significant diuresis with aggressive Lasix -Hold lisinopril -Antihypertensives were increased on previous admission under guidance of cardiology. Likely had significant drop in BP causing CORNELIA. -Avoid nephrotoxic medications 4. HFpEF/CAD/hypertension/CVA/Carotid stenosis -Daily weights strict I's and O's -Restart carvedilol 12.5 mg twice daily -Hold amlodipine and lisinopril for now. - Continue aspirin and Plavix - Continue statin and Zetia - hx of high grade stenosis L ICA, with TPA administration and CVA in 2019. 5. Dm Type 2 -Blood sugars elevated likely secondary to dexamethasone -We will give 8 units with each meal plus sliding scale NovoLog - Lantus 50 units subcutaneously in the evening - NovoLog sliding scale with TIDAC VTE prophylaxis: Lovenox CODE STATUS: FULL CODE Dispo: 2 to 3 days pending improvement.
[2020-03-24] MEDS: Pantoprazole 40 MG Tab.CR PO SCH (08:24)
[2020-03-24] MEDS: Sertraline 100 MG Tab PO SCH (08:24)
[2020-03-24] MEDS: Clopidogrel 75 MG Tab PO SCH (08:25)
[2020-03-24] MEDS: Aspirin 81 MG Tab.Chew PO SCH (08:25)
[2020-03-24] MEDS: Dexamethasone 4 MG Tab PO SCH (08:25)
[2020-03-24] MEDS: Insulin Aspart 100 Units/ML 3 ML Pen SUBCUT SCH ×4 (08:26→18:55)
[2020-03-24] MEDS: Fluticasone Propionate 110 MCG/Puff 12 GM Inhaler INH SCH ×2 (10:01→21:00)
[2020-03-24] MEDS ORDERED: Insulin Aspart 100 Units/ML 3 ML Pen SUBCUT SCH (11:30)
[2020-03-24] MEDS: Carvedilol 12.5 MG Tab PO SCH ×2 (11:51→19:59)
[2020-03-24] MEDS ORDERED: Insulin Aspart 100 Units/ML 3 ML Pen SUBCUT ONE ×2 (12:03→20:44)
[2020-03-24] MEDS: Benzonatate 100 MG Cap PO PRN ×3 (12:16→20:00)
[2020-03-24] MEDS: Albuterol/Ipratropium 4 GM Inhalation Spray INH SCH ×3 (12:42→23:24)
[2020-03-24 18:35] LABS: CARBON DIOXIDE,CO2 23.4 mmol/L (21.0-32.0); POTASSIUM,K 4.9 mmol/L (3.5-5.1)
[2020-03-24] MEDS: Levofloxacin/Dextrose 5%-Water 750 MG in Premix Bag 1 BAG IV SCH (19:58)
[2020-03-24] MEDS: Enoxaparin 40 MG/0.4 ML Syringe SUBCUT SCH (20:00)
[2020-03-24] MEDS: atorvaSTATin 40 MG Tab PO SCH ×2 (20:00)
[2020-03-24] MEDS ORDERED: Insulin Regular, Human 100 Units/ML 10 ML Vial SUBCUT ONE (20:26)
[2020-03-24] MEDS ORDERED: 50% Dextrose in Water 50 ML Syringe IVPUSH PRN ×2 (20:30→20:44)
[2020-03-24] MEDS: Insulin Glargine,Human Rec. Analog 100 Units/ML 3 ML Pen SUBCUT SCH (20:58)
[2020-03-25] MEDS: Albuterol/Ipratropium 4 GM Inhalation Spray INH SCH ×4 (05:52→23:43)
[2020-03-25 07:14] LABS: BLOOD UREA NITROGEN,BUN 40 mg/dL (7.0-18.0); CARBON DIOXIDE,CO2 26.2 mmol/L (21.0-32.0); CHLORIDE,CL 103 mmol/L (98-107); GLUCOSE RANDOM 261 mg/dL (74-106); POTASSIUM,K 4.5 mmol/L (3.5-5.1); SODIUM,NA 136 mmol/L (136-145)
--- NOTE | 2020-03-25 08:10 | PCM.PN ---
- General Info Date of Service: 03/25/20 Admission Dx/Problem (Free Text): Admission Diagnosis/Problem Admission Diagnosis/Problem Syncope due to orthostatic hypotension Subjective Update: Feeling mildly less short of breath today but continues to have overall body a ches and pains. Continues to deny any peripheral edema. Feels fatigued and generalized malaise. No other complaints. Functional Status: Reports: Pain Controlled, Tolerating Diet, Ambulating, Urinating - Review of Systems General: Reports: Weakness (Generalized), Fatigue, Malaise HEENT: Reports: Sinus Congestion. Denies: Headaches Pulmonary: Reports: Shortness of Breath (Mild improvement), Cough. Denies: Sputum, Wheezing Cardiovascular: Reports: Dyspnea on Exertion Gastrointestinal: Reports: No Symptoms. Denies: Abdominal Pain, Nausea, Vomiting Genitourinary: Reports: No Symptoms. Denies: Dysuria, Frequency, Burning Musculoskeletal: Reports: No Symptoms Skin: Reports: No Symptoms Neurological: Reports: No Symptoms Psychiatric: Reports: No Symptoms - Patient Data Vitals - Most Recent: Last Vital Signs Temp 96.8 F L 03/25/20 03:00 Pulse 73 03/25/20 03:00 Resp 20 03/25/20 03:00 BP 141/86 H 03/25/20 03:00 Pulse Ox 93 L 03/25/20 03:00 Orthostatic Blood Pressure [ 71/37 Standing] Orthostatic Blood Pressure [ 79/40 Sitting] Orthostatic Blood Pressure [ 101/66 Supine] Weight - Most Recent: 135.533 kg I&O - Last 24 Hours: Intake & Output 03/24/20 03/25/20 03/25/20 22:59 06:59 14:59 Intake Total 950 1000 Output Total 1500 1450 Balance -550 -450 Lab Results Last 24 Hours: Laboratory Results - last 24 hr 03/24/20 03/24/20 03/24/20 Range/Units 05:40 11:56 17:05 WBC (4.0-11.0) K/uL RBC (4.30-5.90) M/uL Hgb (12.0-16.0) g/dL Hct (36.0-46.0) % MCV (80.0-98.0) fL MCH (27.0-32.0) pg MCHC (31.0-37.0) g/dL RDW Std Deviation (28.0-62.0) fl RDW Coeff of Speedy (11.0-15.0) % Plt Count (150-400) K/uL MPV (7.40-12.00) fL Neut % (Auto) (48.0-80.0) % Lymph % (Auto) (16.0-40.0) % [place] % (Auto) (0.0-15.0) % Eos % (Auto) (0.0-7.0) % Baso % (Auto) (0.0-1.5) % Neut # (Auto) (1.4-5.7) K/uL Lymph # (Auto) (0.6-2.4) K/uL [place] # (Auto) (0.0-0.8) K/uL Eos # (Auto) (0.0-0.7) K/uL Baso # (Auto) (0.0-0.1) K/uL Nucleated RBC % /100WBC Nucleated RBCs # K/uL Sodium 130 L (136-145) mmol/L Potassium 4.9 (3.5-5.1) mmol/L Chloride 98 (98-107) mmol/L Carbon Dioxide 23.4 (21.0-32.0) mmol/L BUN 52 H (7.0-18.0) mg/dL Creatinine 1.2 H (0.6-1.0) mg/dL Est Cr Clr Drug Dosing 58.46 mL/min Estimated GFR (MDRD) 48.2 ml/min Glucose 482 H (74-106) mg/dL POC Glucose 460 H (60-110) mg/dL Calcium 8.7 (8.5-10.1) mg/dL Magnesium (1.8-2.4) mg/dL Troponin I < 0.050 (0.000-0.056) ng/mL 03/24/20 03/24/20 03/24/20 Range/Units 17:28 18:51 23:15 WBC (4.0-11.0) K/uL RBC (4.30-5.90) M/uL Hgb (12.0-16.0) g/dL Hct (36.0-46.0) % MCV (80.0-98.0) fL MCH (27.0-32.0) pg MCHC (31.0-37.0) g/dL RDW Std Deviation (28.0-62.0) fl RDW Coeff of Speedy (11.0-15.0) % Plt Count (150-400) K/uL MPV (7.40-12.00) fL Neut % (Auto) (48.0-80.0) % Lymph % (Auto) (16.0-40.0) % [place] % (Auto) (0.0-15.0) % Eos % (Auto) (0.0-7.0) % Baso % (Auto) (0.0-1.5) % Neut # (Auto) (1.4-5.7) K/uL Lymph # (Auto) (0.6-2.4) K/uL [place] # (Auto) (0.0-0.8) K/uL Eos # (Auto) (0.0-0.7) K/uL Baso # (Auto) (0.0-0.1) K/uL Nucleated RBC % /100WBC Nucleated RBCs # K/uL Sodium (136-145) mmol/L Potassium (3.5-5.1) mmol/L Chloride (98-107) mmol/L Carbon Dioxide (21.0-32.0) mmol/L BUN (7.0-18.0) mg/dL Creatinine (0.6-1.0) mg/dL Est Cr Clr Drug Dosing mL/min Estimated GFR (MDRD) ml/min Glucose (74-106) mg/dL POC Glucose 468 H > 500 H 334 H (60-110) mg/dL Calcium (8.5-10.1) mg/dL Magnesium (1.8-2.4) mg/dL Troponin I (0.000-0.056) ng/mL 03/25/20 03/25/20 03/25/20 Range/Units 06:03 06:45 06:45 WBC 6.21 (4.0-11.0) K/uL RBC 4.41 (4.30-5.90) M/uL Hgb 11.7 L (12.0-16.0) g/dL Hct 35.9 L (36.0-46.0) % MCV 81.4 (80.0-98.0) fL MCH 26.5 L (27.0-32.0) pg MCHC 32.6 (31.0-37.0) g/dL RDW Std Deviation 39.7 (28.0-62.0) fl RDW Coeff of Speedy 13 (11.0-15.0) % Plt Count 102 L (150-400) K/uL MPV 11.00 (7.40-12.00) fL Neut % (Auto) 88.6 H (48.0-80.0) % Lymph % (Auto) 4.8 L (16.0-40.0) % [place] % (Auto) 6.6 (0.0-15.0) % Eos % (Auto) 0.0 (0.0-7.0) % Baso % (Auto) 0.0 (0.0-1.5) % Neut # (Auto) 5.5 (1.4-5.7) K/uL Lymph # (Auto) 0.3 L (0.6-2.4) K/uL [place] # (Auto) 0.4 (0.0-0.8) K/uL Eos # (Auto) 0.0 (0.0-0.7) K/uL Baso # (Auto) 0.0 (0.0-0.1) K/uL Nucleated RBC % 0.0 /100WBC Nucleated RBCs # 0 K/uL Sodium 136 (136-145) mmol/L Potassium 4.5 (3.5-5.1) mmol/L Chloride 103 (98-107) mmol/L Carbon Dioxide 26.2 (21.0-32.0) mmol/L BUN 40 H (7.0-18.0) mg/dL Creatinine 0.9 (0.6-1.0) mg/dL Est Cr Clr Drug Dosing 77.95 mL/min Estimated GFR (MDRD) > 60.0 ml/min Glucose 261 H (74-106) mg/dL POC Glucose 266 H (60-110) mg/dL Calcium 8.5 (8.5-10.1) mg/dL Magnesium 2.2 (1.8-2.4) mg/dL Troponin I (0.000-0.056) ng/mL Med Orders - Current: Current Medications Albuterol/Ipratropium (Duoneb 3.0-0.5 Mg/3 Ml) 3 ml NEB Q4HRRT PRN PRN Reason: Shortness Of Breath/wheezing Albuterol/Ipratropium (Combivent Respimat) 0 gm INH QID [facility] Last Admin: 03/25/20 05:52 Dose: 1 inhalation Documented by: Aspirin (Aspirin) 81 mg PO DAILY [facility] Last Admin: 03/24/20 08:25 Dose: 81 mg Documented by: Atorvastatin Calcium (Lipitor) 80 mg PO BEDTIME [facility] Last Admin: 03/24/20 20:00 Dose: 80 mg Documented by: Benzonatate (Tessalon Perles) 200 mg PO TID PRN PRN Reason: Cough Last Admin: 03/24/20 20:00 Dose: 200 mg Documented by: Carvedilol (Coreg) 12.5 mg PO BID [facility] Last Admin: 03/24/20 19:59 Dose: 12.5 mg Documented by: Clopidogrel Bisulfate (Plavix) 75 mg PO DAILY [facility] Last Admin: 03/24/20 08:25 Dose: 75 mg Documented by: Dexamethasone (Dexamethasone) 6 mg PO DAILY [facility] Last Admin: 03/24/20 08:25 Dose: 6 mg Documented by: Dextrose/Water (Dextrose 50% In Water) 50 ml IVPUSH ASDIRECTED PRN PRN Reason: Hypoglycemia Enoxaparin Sodium (Lovenox) 40 mg SUBCUT BEDTIME [facility] Last Admin: 03/24/20 20:00 Dose: 40 mg Documented by: Fluticasone Propionate (Flovent Hfa 110 Mcg) 0 gm INH BID [facility] Last Admin: 03/24/20 21:00 Dose: 2 puff Documented by: Glucagon (Glucagen) 1 mg IM ASDIRECTED PRN PRN Reason: Hypoglycemia Levofloxacin/Dextrose 750 mg/ (Premix) 150 mls @ 100 mls/hr IV Q24H [facility] Last Admin: 03/24/20 19:58 Dose: 100 mls/hr Documented by: Insulin Aspart (Novolog) 0 unit SUBCUT TIDAC [facility]; Protocol Last Admin: 03/24/20 18:55 Dose: 10 units Documented by: Insulin Aspart (Novolog) 8 unit SUBCUT TIDAC [facility] Last Admin: 03/24/20 17:34 Dose: 8 units Documented by: Insulin Glargine (Lantus Solostar) 50 units SUBCUT BEDTIME [facility] Last Admin: 03/24/20 20:58 Dose: 50 units Documented by: Nitroglycerin (Nitrostat) 0.4 mg SL .EVERY 5 MINUTES PRN PRN Reason: Chest Pain Nystatin (Nystop) 0 gm TOP TID [facility] Ondansetron HCl (Zofran Odt) 4 mg PO Q4H PRN PRN Reason: nausea, able to take PO Pantoprazole Sodium (Protonix) 40 mg PO DAILY [facility] Last Admin: 03/24/20 08:24 Dose: 40 mg Documented by: Sertraline HCl (Zoloft) 200 mg PO DAILY [facility] Last Admin: 03/24/20 08:24 Dose: 200 mg Documented by: Sodium Chloride (Saline Flush) 10 ml FLUSH ASDIRECTED PRN PRN Reason: Keep Vein Open Last Admin: 03/23/20 19:05 Dose: 10 ml Documented by: Sodium Chloride (Saline Flush) 2.5 ml FLUSH ASDIRECTED PRN PRN Reason: Keep Vein Open Last Admin: 03/23/20 19:05 Dose: 2.5 ml Documented by: Discontinued Medications Acetaminophen (Tylenol) 650 mg PO NOW ONE Stop: 03/23/20 17:51 Last Admin: 03/23/20 19:08 Dose: 650 mg Documented by: Dextrose/Water (Dextrose 50% In Water) 50 ml IV ASDIRECTED PRN PRN Reason: Hypoglycemia Dextrose/Water (Dextrose 50% In Water) 50 ml IV ASDIRECTED PRN PRN Reason: Hypoglycemia Dextrose/Water (Dextrose 50% In Water) 50 ml IVPUSH ASDIRECTED PRN PRN Reason: Hypoglycemia Enoxaparin Sodium (Lovenox) 40 mg SUBCUT Q24H [facility] Last Admin: 03/23/20 23:08 Dose: Not Given Documented by: Fentanyl (Fentanyl) 100 mcg IVPUSH ONETIME ONE Stop: 03/23/20 16:29 Last Admin: 03/23/20 19:06 Dose: Not Given Documented by: Glucagon (Glucagen) 1 mg IM ASDIRECTED PRN PRN Reason: Hypoglycemia Glucagon (Glucagen) 1 mg IM ASDIRECTED PRN PRN Reason: Hypoglycemia Glucagon (Glucagen) 1 mg IM ASDIRECTED PRN PRN Reason: Hypoglycemia Sodium Chloride (Normal Saline) 1,000 mls @ 999 mls/hr IV STAT ONE Stop: 03/23/20 19:08 Last Admin: 03/23/20 19:08 Dose: 999 mls/hr Documented by: Insulin Aspart (Novolog) 4 unit SUBCUT TIDAC [facility] Last Admin: 03/24/20 12:34 Dose: Not Given Documented by: Insulin Aspart (Novolog) 15 unit SUBCUT ONETIME ONE Stop: 03/24/20 12:04 Last Admin: 03/24/20 12:16 Dose: 15 units Documented by: Insulin Aspart (Novolog) 15 unit SUBCUT ONETIME ONE Stop: 03/24/20 20:45 Last Admin: 03/24/20 21:05 Dose: 15 unit Documented by: Iopamidol (Isovue Multipack-370 (76%)) 100 ml IVPUSH ONETIME ONE Stop: 03/23/20 17:47 Last Admin: 03/23/20 17:46 Dose: 100 ml Documented by: - Exam Quality Assessment: Supplemental Oxygen (4 to 5 L), DVT Prophylaxis (Lovenox) General: Alert, Oriented, Cooperative, No Acute Distress Lungs: Normal Respiratory Effort, Crackles (Bibasilar mild) Cardiovascular: Regular Rate, Regular Rhythm GI/Abdominal Exam: Normal Bowel Sounds, Soft, Non-Tender Extremities: Normal Inspection, Normal Range of Motion, Non-Tender, No Pedal Edema Wound/Incisions: Healing Well Neurological: No New Focal Deficit Psy/Mental Status: Alert, Normal Affect, Normal Mood Sepsis Event Note - Evaluation Sepsis Screening Result: No Definite Risk - Focused Exam Vital Signs: Vital Signs Temp Pulse Resp BP Pulse Ox 03/25/20 03:00 96.8 F L 73 20 141/86 H 93 L 03/24/20 23:19 96.1 F L 78 20 140/78 92 L - Problem List & Annotations (1) CORNELIA (acute kidney injury) SNOMED Code(s): 69277596, 42569489 Code(s): N17.9 - ACUTE KIDNEY FAILURE, UNSPECIFIED Status: Acute Current Visit: Yes (2) COVID-19 SNOMED Code(s): 322640855 Code(s): U07.1 - COVID-19 Status: Acute Current Visit: Yes (3) Chest pain, rule out acute myocardial infarction SNOMED Code(s): 12133304 Code(s): R07.9 - CHEST PAIN, UNSPECIFIED Status: Acute Current Visit: Yes (4) Orthostatic hypotension SNOMED Code(s): 91631196 Code(s): I95.1 - ORTHOSTATIC HYPOTENSION Status: Acute Current Visit: Yes (5) Syncope SNOMED Code(s): 453254638 Code(s): R55 - SYNCOPE AND COLLAPSE Status: Acute Current Visit: Yes Qualifiers: Syncope type: unspecified Qualified Code(s): R55 - Syncope and collapse (6) (HFpEF) heart failure with preserved ejection fraction SNOMED Code(s): 213437211 Code(s): I50.30 - UNSPECIFIED DIASTOLIC (CONGESTIVE) HEART FAILURE Status: Acute Current Visit: No Qualifiers: Heart failure chronicity: acute on chronic Qualified Code(s): I50.33 - Acute on chronic diastolic (congestive) heart failure (7) Acute respiratory failure with hypoxia SNOMED Code(s): 91209630, 591925848 Code(s): J96.01 - ACUTE RESPIRATORY FAILURE WITH HYPOXIA Status: Acute Current Visit: No (8) DM type 2 (diabetes mellitus, type 2) SNOMED Code(s): 02018638 Code(s): E11.9 - TYPE 2 DIABETES MELLITUS WITHOUT COMPLICATIONS Status: Chronic Current Visit: No Qualifiers: Diabetes mellitus group home insulin use: with terminologist use Diabetes mellitus complication status: with hyperglycemia Qualified Code(s): E11.65 - Type 2 diabetes mellitus with hyperglycemia; Z79.4 - long term care phlebotomist (current) use of insulin (9) HLD (hyperlipidemia) SNOMED Code(s): 54754109 Code(s): E78.5 - HYPERLIPIDEMIA, UNSPECIFIED Status: Chronic Current Visit: No (10) HTN (hypertension) SNOMED Code(s): 11272276 Code(s): I10 - ESSENTIAL (PRIMARY) HYPERTENSION Status: Chronic Current Visit: No (11) Obesity SNOMED Code(s): 336548487, 487452238 Code(s): E66.9 - OBESITY, UNSPECIFIED Status: Chronic Current Visit: No Qualifiers: Serious obesity comorbidity presence: with serious comorbidity (12) History of CVA (cerebrovascular accident) SNOMED Code(s): 014129825 Code(s): Z86.73 - PRSNL HX OF TIA (TIA), AND CEREB INFRC W/O RESID DEFICITS Status: Acute Current Visit: Yes - Problem List Review Problem List Initiated/Reviewed/Updated: Yes - My Orders Last 24 Hours: My Active Orders 03/24/20 08:04 Insulin Aspart [NovoLOG] See Protocol SUBCUT TIDAC 03/24/20 08:05 Height and Weight [RC] DAILY Intake and Output Strict [RC] Q12H 03/24/20 10:41 RT Post Treatment Assessment [RC] Click to Edit RT Pre-Treatment Assessment [RC] Click to Edit 03/24/20 10:45 carvediloL [Coreg] 12.5 mg PO BID 03/24/20 12:00 Albuterol/Ipratropium [Combivent Respimat] See Dose Instructions INH QID 03/24/20 17:00 Insulin Aspart [NovoLOG] 8 unit SUBCUT TIDAC 03/25/20 08:09 Nystatin [Nystop] See Dose Instructions TOP TID 03/26/20 05:11 BASIC METABOLIC PANEL,BMP [CHEM] AM CBC WITH AUTO DIFF [HEME] AM MG [MAGNESIUM] [CHEM] AM 03/27/20 05:11 BASIC METABOLIC PANEL,BMP [CHEM] AM CBC WITH AUTO DIFF [HEME] AM MG [MAGNESIUM] [CHEM] AM - Plan Plan:: This 49-year-old female admitted with multiple syncopal episodes at home with weakness shortness of breath 1. Syncope -Orthostatic hypotension noted, improved today -Continue Coreg at lower dose, will continue to hold other antihypertensives as she still is slightly orthostatic. -Blood pressure is improving no further syncopal episodes. -Monitor on telemetry, no arrhythmias 2. COVID-19 infection -Mild improvement but continues to have significant fatigue and body aches -Oxygen needs continue to improve slowly 4 to 5 L today. -Continue dexamethasone 6 mg p.o. daily -Oxygen therapy to keep sats greater than 92%, wean as possible -Encouraged proning or at least left lateral decubitus position. -IS and flutter -Combivent inhaler every 4 hours as needed dyspnea -Lovenox 40 mg subcut daily - Monitor liver function daily -Continue guaifenesin with codeine as needed cough along with Tessalon Perles 3. CORNELIA -BUN 40 Cr 0.9 -Significantly improved we will continue to monitor -Avoid nephrotoxic medications 4. HFpEF/CAD/hypertension/CVA/Carotid stenosis -Daily weights strict I's and O's -Continue carvedilol 12.5 mg twice daily -Hold amlodipine and lisinopril for now. - Continue aspirin and Plavix - Continue statin and Zetia - hx of high grade stenosis L ICA, with TPA administration and CVA in 2019. 5. Dm Type 2 -Blood sugars elevated likely secondary to dexamethasone -NovoLog 20 units with each meal - Lantus 50 units subcutaneously in the evening - NovoLog sliding scale with TIDAC VTE prophylaxis: Lovenox CODE STATUS: FULL CODE Dispo: 2 to 3 days pending improvement.
[2020-03-25] MEDS: Insulin Aspart 100 Units/ML 3 ML Pen SUBCUT SCH ×6 (08:27→18:08)
[2020-03-25] MEDS: Clopidogrel 75 MG Tab PO SCH (08:30)
[2020-03-25] MEDS: Pantoprazole 40 MG Tab.CR PO SCH (08:30)
[2020-03-25] MEDS: Carvedilol 12.5 MG Tab PO SCH ×2 (08:31→20:35)
[2020-03-25] MEDS: Dexamethasone 4 MG Tab PO SCH (08:31)
[2020-03-25] MEDS: Aspirin 81 MG Tab.Chew PO SCH (08:31)
[2020-03-25] MEDS: Fluticasone Propionate 110 MCG/Puff 12 GM Inhaler INH SCH ×2 (08:58→20:40)
[2020-03-25] MEDS: Sertraline 100 MG Tab PO SCH (09:28)
[2020-03-25] MEDS: Nystatin Topical Powder 15 GM Bottle TOP SCH ×3 (10:40→23:44)
[2020-03-25] MEDS: Benzonatate 100 MG Cap PO PRN ×2 (10:40→20:35)
[2020-03-25] MEDS: Acetaminophen 325 MG Tab PO PRN (20:35)
[2020-03-25] MEDS: Levofloxacin/Dextrose 5%-Water 750 MG in Premix Bag 1 BAG IV SCH (20:35)
[2020-03-25] MEDS: atorvaSTATin 40 MG Tab PO SCH (20:35)
[2020-03-25] MEDS: Enoxaparin 40 MG/0.4 ML Syringe SUBCUT SCH (20:36)
[2020-03-25] MEDS: Insulin Glargine,Human Rec. Analog 100 Units/ML 3 ML Pen SUBCUT SCH (20:40)
[2020-03-26] MEDS: Albuterol/Ipratropium 4 GM Inhalation Spray INH SCH ×4 (06:20→23:18)
[2020-03-26 06:22] LABS: BLOOD UREA NITROGEN,BUN 29 mg/dL (7.0-18.0); CARBON DIOXIDE,CO2 29.3 mmol/L (21.0-32.0); CHLORIDE,CL 100 mmol/L (98-107); GLUCOSE RANDOM 265 mg/dL (74-106); POTASSIUM,K 5.1 mmol/L (3.5-5.1); SODIUM,NA 135 mmol/L (136-145)
--- NOTE | 2020-03-26 08:15 | PCM.PN ---
- General Info Date of Service: 03/26/20 Admission Dx/Problem (Free Text): Admission Diagnosis/Problem Admission Diagnosis/Problem Syncope due to orthostatic hypotension Subjective Update: Feeling fatigued morning. Reports significant shortness of breath when walking to the bathroom around 4 this morning. She needed high levels of oxygen upwards of 13 L but then was weaned back down to 7 L after she had settled back into bed. Reports chest tightness no chest pain dry cough. And generalized fatigue and malaise. Functional Status: Reports: Pain Controlled, Tolerating Diet, Ambulating - Review of Systems General: Reports: Fatigue, Malaise (Generalized) HEENT: Reports: No Symptoms. Denies: Headaches, Visual Changes Pulmonary: Reports: Shortness of Breath, Pleuritic Chest Pain, Cough Cardiovascular: Reports: No Symptoms Gastrointestinal: Denies: Abdominal Pain, Nausea, Vomiting Genitourinary: Reports: No Symptoms. Denies: Dysuria, Frequency Musculoskeletal: Reports: No Symptoms. Denies: Neck Pain, Shoulder Pain Skin: Reports: No Symptoms Neurological: Reports: No Symptoms Psychiatric: Reports: No Symptoms - Patient Data Vitals - Most Recent: Last Vital Signs Temp 96.2 F L 03/26/20 04:00 Pulse 74 03/26/20 04:00 Resp 22 H 03/26/20 04:00 BP 140/75 03/26/20 04:00 Pulse Ox 90 L 03/26/20 04:00 Orthostatic Blood Pressure [ 71/37 Standing] Orthostatic Blood Pressure [ 79/40 Sitting] Orthostatic Blood Pressure [ 101/66 Supine] Weight - Most Recent: 134.853 kg I&O - Last 24 Hours: Intake & Output 03/25/20 03/26/20 03/26/20 22:59 06:59 14:59 Intake Total 940 400 Output Total 800 1250 Balance 140 -850 Lab Results Last 24 Hours: Laboratory Results - last 24 hr 03/25/20 03/25/20 03/25/20 Range/Units 13:15 17:21 20:28 WBC (4.0-11.0) K/uL RBC (4.30-5.90) M/uL Hgb (12.0-16.0) g/dL Hct (36.0-46.0) % MCV (80.0-98.0) fL MCH (27.0-32.0) pg MCHC (31.0-37.0) g/dL RDW Std Deviation (28.0-62.0) fl RDW Coeff of Speedy (11.0-15.0) % Plt Count (150-400) K/uL MPV (7.40-12.00) fL Neut % (Auto) (48.0-80.0) % Lymph % (Auto) (16.0-40.0) % [place] % (Auto) (0.0-15.0) % Eos % (Auto) (0.0-7.0) % Baso % (Auto) (0.0-1.5) % Neut # (Auto) (1.4-5.7) K/uL Lymph # (Auto) (0.6-2.4) K/uL [place] # (Auto) (0.0-0.8) K/uL Eos # (Auto) (0.0-0.7) K/uL Baso # (Auto) (0.0-0.1) K/uL Nucleated RBC % /100WBC Nucleated RBCs # K/uL Sodium (136-145) mmol/L Potassium (3.5-5.1) mmol/L Chloride (98-107) mmol/L Carbon Dioxide (21.0-32.0) mmol/L BUN (7.0-18.0) mg/dL Creatinine (0.6-1.0) mg/dL Est Cr Clr Drug Dosing mL/min Estimated GFR (MDRD) ml/min Glucose (74-106) mg/dL POC Glucose 254 H 328 H 402 H (60-110) mg/dL Calcium (8.5-10.1) mg/dL Magnesium (1.8-2.4) mg/dL 03/26/20 03/26/20 03/26/20 Range/Units 05:55 05:55 06:24 WBC 5.88 (4.0-11.0) K/uL RBC 4.53 (4.30-5.90) M/uL Hgb 12.1 (12.0-16.0) g/dL Hct 37.0 (36.0-46.0) % MCV 81.7 (80.0-98.0) fL MCH 26.7 L (27.0-32.0) pg MCHC 32.7 (31.0-37.0) g/dL RDW Std Deviation 39.5 (28.0-62.0) fl RDW Coeff of Speedy 13 (11.0-15.0) % Plt Count 107 L (150-400) K/uL MPV 10.70 (7.40-12.00) fL Neut % (Auto) 89.1 H (48.0-80.0) % Lymph % (Auto) 5.1 L (16.0-40.0) % [place] % (Auto) 5.8 (0.0-15.0) % Eos % (Auto) 0.0 (0.0-7.0) % Baso % (Auto) 0.0 (0.0-1.5) % Neut # (Auto) 5.2 (1.4-5.7) K/uL Lymph # (Auto) 0.3 L (0.6-2.4) K/uL [place] # (Auto) 0.3 (0.0-0.8) K/uL Eos # (Auto) 0.0 (0.0-0.7) K/uL Baso # (Auto) 0.0 (0.0-0.1) K/uL Nucleated RBC % 0.0 /100WBC Nucleated RBCs # 0 K/uL Sodium 135 L (136-145) mmol/L Potassium 5.1 (3.5-5.1) mmol/L Chloride 100 (98-107) mmol/L Carbon Dioxide 29.3 (21.0-32.0) mmol/L BUN 29 H (7.0-18.0) mg/dL Creatinine 0.9 (0.6-1.0) mg/dL Est Cr Clr Drug Dosing 77.95 mL/min Estimated GFR (MDRD) > 60.0 ml/min Glucose 265 H (74-106) mg/dL POC Glucose 259 H (60-110) mg/dL Calcium 8.6 (8.5-10.1) mg/dL Magnesium 2.1 (1.8-2.4) mg/dL Med Orders - Current: Current Medications Acetaminophen (Tylenol) 650 mg PO Q4H PRN PRN Reason: Pain Last Admin: 03/25/20 20:35 Dose: 650 mg Documented by: Albuterol/Ipratropium (Duoneb 3.0-0.5 Mg/3 Ml) 3 ml NEB Q4HRRT PRN PRN Reason: Shortness Of Breath/wheezing Albuterol/Ipratropium (Combivent Respimat) 0 gm INH QID [facility] Last Admin: 03/26/20 06:20 Dose: 1 inhalation Documented by: Aspirin (Aspirin) 81 mg PO DAILY [facility] Last Admin: 03/25/20 08:31 Dose: 81 mg Documented by: Atorvastatin Calcium (Lipitor) 80 mg PO BEDTIME [facility] Last Admin: 03/25/20 20:35 Dose: 80 mg Documented by: Benzonatate (Tessalon Perles) 200 mg PO TID PRN PRN Reason: Cough Last Admin: 03/25/20 20:35 Dose: 200 mg Documented by: Carvedilol (Coreg) 12.5 mg PO BID [facility] Last Admin: 03/25/20 20:35 Dose: 12.5 mg Documented by: Clopidogrel Bisulfate (Plavix) 75 mg PO DAILY [facility] Last Admin: 03/25/20 08:30 Dose: 75 mg Documented by: Dexamethasone (Dexamethasone) 6 mg PO DAILY [facility] Last Admin: 03/25/20 08:31 Dose: 6 mg Documented by: Dextrose/Water (Dextrose 50% In Water) 50 ml IVPUSH ASDIRECTED PRN PRN Reason: Hypoglycemia Enoxaparin Sodium (Lovenox) 40 mg SUBCUT BEDTIME [facility] Last Admin: 03/25/20 20:36 Dose: 40 mg Documented by: Fluticasone Propionate (Flovent Hfa 110 Mcg) 0 gm INH BID [facility] Last Admin: 03/25/20 20:40 Dose: 2 puff Documented by: Glucagon (Glucagen) 1 mg IM ASDIRECTED PRN PRN Reason: Hypoglycemia Levofloxacin/Dextrose 750 mg/ (Premix) 150 mls @ 100 mls/hr IV Q24H [facility] Last Admin: 03/25/20 20:35 Dose: 100 mls/hr Documented by: Insulin Aspart (Novolog) 20 unit SUBCUT TIDAC [facility] Last Admin: 03/25/20 18:08 Dose: 20 unit Documented by: Insulin Glargine (Lantus Solostar) 50 units SUBCUT BEDTIME [facility] Last Admin: 03/25/20 20:40 Dose: 50 units Documented by: Nitroglycerin (Nitrostat) 0.4 mg SL .EVERY 5 MINUTES PRN PRN Reason: Chest Pain Nystatin (Nystop) 0 gm TOP TID [facility] Last Admin: 03/25/20 23:44 Dose: Not Given Documented by: Ondansetron HCl (Zofran Odt) 4 mg PO Q4H PRN PRN Reason: nausea, able to take PO Pantoprazole Sodium (Protonix) 40 mg PO DAILY [facility] Last Admin: 03/25/20 08:30 Dose: 40 mg Documented by: Sertraline HCl (Zoloft) 200 mg PO DAILY [facility] Last Admin: 03/25/20 09:28 Dose: Not Given Documented by: Sodium Chloride (Saline Flush) 10 ml FLUSH ASDIRECTED PRN PRN Reason: Keep Vein Open Last Admin: 03/23/20 19:05 Dose: 10 ml Documented by: Sodium Chloride (Saline Flush) 2.5 ml FLUSH ASDIRECTED PRN PRN Reason: Keep Vein Open Last Admin: 03/23/20 19:05 Dose: 2.5 ml Documented by: Discontinued Medications Acetaminophen (Tylenol) 650 mg PO NOW ONE Stop: 03/23/20 17:51 Last Admin: 03/23/20 19:08 Dose: 650 mg Documented by: Dextrose/Water (Dextrose 50% In Water) 50 ml IV ASDIRECTED PRN PRN Reason: Hypoglycemia Dextrose/Water (Dextrose 50% In Water) 50 ml IV ASDIRECTED PRN PRN Reason: Hypoglycemia Dextrose/Water (Dextrose 50% In Water) 50 ml IVPUSH ASDIRECTED PRN PRN Reason: Hypoglycemia Enoxaparin Sodium (Lovenox) 40 mg SUBCUT Q24H [facility] Last Admin: 03/23/20 23:08 Dose: Not Given Documented by: Fentanyl (Fentanyl) 100 mcg IVPUSH ONETIME ONE Stop: 03/23/20 16:29 Last Admin: 03/23/20 19:06 Dose: Not Given Documented by: Glucagon (Glucagen) 1 mg IM ASDIRECTED PRN PRN Reason: Hypoglycemia Glucagon (Glucagen) 1 mg IM ASDIRECTED PRN PRN Reason: Hypoglycemia Glucagon (Glucagen) 1 mg IM ASDIRECTED PRN PRN Reason: Hypoglycemia Sodium Chloride (Normal Saline) 1,000 mls @ 999 mls/hr IV STAT ONE Stop: 03/23/20 19:08 Last Admin: 03/23/20 19:08 Dose: 999 mls/hr Documented by: Insulin Aspart (Novolog) 0 unit SUBCUT TIDAC [facility]; Protocol Last Admin: 03/25/20 13:20 Dose: Not Given Documented by: Insulin Aspart (Novolog) 4 unit SUBCUT TIDAC [facility] Last Admin: 03/24/20 12:34 Dose: Not Given Documented by: Insulin Aspart (Novolog) 15 unit SUBCUT ONETIME ONE Stop: 03/24/20 12:04 Last Admin: 03/24/20 12:16 Dose: 15 units Documented by: Insulin Aspart (Novolog) 8 unit SUBCUT TIDAC [facility] Last Admin: 03/25/20 13:21 Dose: Not Given Documented by: Insulin Aspart (Novolog) 15 unit SUBCUT ONETIME ONE Stop: 03/24/20 20:45 Last Admin: 03/24/20 21:05 Dose: 15 unit Documented by: Iopamidol (Isovue Multipack-370 (76%)) 100 ml IVPUSH ONETIME ONE Stop: 03/23/20 17:47 Last Admin: 03/23/20 17:46 Dose: 100 ml Documented by: - Exam General: Alert, Oriented, Cooperative, No Acute Distress Lungs: Decreased Breath Sounds, Crackles. No: Normal Respiratory Effort (Dyspnea) Cardiovascular: Regular Rate, Regular Rhythm GI/Abdominal Exam: Normal Bowel Sounds, Soft, Non-Tender Back Exam: Normal Inspection, Full Range of Motion Extremities: Normal Inspection, Normal Range of Motion, Non-Tender, No Pedal Edema Neurological: No New Focal Deficit Psy/Mental Status: Alert, Normal Affect, Normal Mood Sepsis Event Note - Evaluation Sepsis Screening Result: No Definite Risk - Focused Exam Vital Signs: Vital Signs Temp Pulse Pulse Resp BP BP BP 03/26/20 04:00 96.2 F L 74 22 H 140/75 03/25/20 23:41 96.0 F L 70 20 138/80 03/25/20 20:35 75 137/91 H 03/25/20 20:29 96.9 F 75 20 137/91 H Pulse Ox 03/26/20 04:00 90 L 03/25/20 23:41 95 03/25/20 20:35 03/25/20 20:29 94 L - Problem List & Annotations (1) CORNELIA (acute kidney injury) SNOMED Code(s): 23500526, 87999822 Code(s): N17.9 - ACUTE KIDNEY FAILURE, UNSPECIFIED Status: Acute Current Visit: Yes (2) COVID-19 SNOMED Code(s): 408674175 Code(s): U07.1 - COVID-19 Status: Acute Current Visit: Yes (3) Chest pain, rule out acute myocardial infarction SNOMED Code(s): 47077934 Code(s): R07.9 - CHEST PAIN, UNSPECIFIED Status: Acute Current Visit: Yes (4) Orthostatic hypotension SNOMED Code(s): 15805405 Code(s): I95.1 - ORTHOSTATIC HYPOTENSION Status: Acute Current Visit: Yes (5) Syncope SNOMED Code(s): 632279724 Code(s): R55 - SYNCOPE AND COLLAPSE Status: Acute Current Visit: Yes Qualifiers: Syncope type: unspecified Qualified Code(s): R55 - Syncope and collapse (6) (HFpEF) heart failure with preserved ejection fraction SNOMED Code(s): 411156264 Code(s): I50.30 - UNSPECIFIED DIASTOLIC (CONGESTIVE) HEART FAILURE Status: Acute Current Visit: No Qualifiers: Heart failure chronicity: acute on chronic Qualified Code(s): I50.33 - Acute on chronic diastolic (congestive) heart failure (7) Acute respiratory failure with hypoxia SNOMED Code(s): 28612251, 400010711 Code(s): J96.01 - ACUTE RESPIRATORY FAILURE WITH HYPOXIA Status: Acute Current Visit: No (8) DM type 2 (diabetes mellitus, type 2) SNOMED Code(s): 03571805 Code(s): E11.9 - TYPE 2 DIABETES MELLITUS WITHOUT COMPLICATIONS Status: Chronic Current Visit: No Qualifiers: Diabetes mellitus usp insulin use: with usp use Diabetes mellitus complication status: with hyperglycemia Qualified Code(s): E11.65 - Type 2 diabetes mellitus with hyperglycemia; Z79.4 - longterm (current) use of insulin (9) HLD (hyperlipidemia) SNOMED Code(s): 77850750 Code(s): E78.5 - HYPERLIPIDEMIA, UNSPECIFIED Status: Chronic Current Visit: No (10) HTN (hypertension) SNOMED Code(s): 50517780 Code(s): I10 - ESSENTIAL (PRIMARY) HYPERTENSION Status: Chronic Current Visit: No (11) Obesity SNOMED Code(s): 614210882, 342138403 Code(s): E66.9 - OBESITY, UNSPECIFIED Status: Chronic Current Visit: No Qualifiers: Serious obesity comorbidity presence: with serious comorbidity (12) History of CVA (cerebrovascular accident) SNOMED Code(s): 364864747 Code(s): Z86.73 - PRSNL HX OF TIA (TIA), AND CEREB INFRC W/O RESID DEFICITS Status: Acute Current Visit: Yes - Problem List Review Problem List Initiated/Reviewed/Updated: Yes - My Orders Last 24 Hours: My Active Orders 03/25/20 08:09 Nystatin [Nystop] See Dose Instructions TOP TID 03/25/20 11:34 Patient Status [ADT] Stat 03/25/20 11:36 Insulin Aspart [NovoLOG] 20 unit SUBCUT TIDAC 03/25/20 12:20 Acetaminophen [TylenoL] 650 mg PO Q4H PRN 03/27/20 05:11 BASIC METABOLIC PANEL,BMP [CHEM] AM CBC WITH AUTO DIFF [HEME] AM MG [MAGNESIUM] [CHEM] AM - Plan Plan:: This 49-year-old female admitted with multiple syncopal episodes at home with weakness shortness of breath 1. Syncope -Obtain orthostatic vital signs today - Continue Coreg - Blood pressure is improving no further syncopal episodes. - Monitor on telemetry, no arrhythmias 2. COVID-19 infection -Mild improvement but continues to have significant fatigue and body aches -Oxygen needs continue at 5 to 6 L today. -Continue dexamethasone 6 mg p.o. daily -Oxygen therapy to keep sats greater than 92%, wean as possible -Encouraged proning or at least left lateral decubitus position. -IS and flutter -Combivent inhaler every 4 hours as needed dyspnea -Lovenox 40 mg subcut twice daily - Monitor liver function daily -Continue guaifenesin with codeine as needed cough along with Tessalon Perles 3. CORNELIA -BUN 20 Cr 0.9 -Significantly improved we will continue to monitor -Avoid nephrotoxic medications 4. HFpEF/CAD/hypertension/CVA/Carotid stenosis -Daily weights strict I's and O's -Continue carvedilol 12.5 mg twice daily -Hold amlodipine and lisinopril for now. - Continue aspirin and Plavix - Continue statin and Zetia - hx of high grade stenosis L ICA, with TPA administration and CVA in 2019. 5. Dm Type 2 -Blood sugars elevated likely secondary to dexamethasone -NovoLog 20 units with each meal - Lantus 50 units subcutaneously in the evening - NovoLog sliding scale with TIDAC VTE prophylaxis: Lovenox twice daily CODE STATUS: FULL CODE Dispo: 2 to 3 days pending improvement. Updated , Adorno, he is in agreement of treatment plan will keep posted on any further changes.
[2020-03-26] MEDS: Nystatin Topical Powder 15 GM Bottle TOP SCH ×3 (08:35→21:02)
[2020-03-26] MEDS: Insulin Aspart 100 Units/ML 3 ML Pen SUBCUT SCH ×4 (08:36→23:20)
[2020-03-26] MEDS: Pantoprazole 40 MG Tab.CR PO SCH (08:38)
[2020-03-26] MEDS: Dexamethasone 4 MG Tab PO SCH (08:38)
[2020-03-26] MEDS: Clopidogrel 75 MG Tab PO SCH (08:38)
[2020-03-26] MEDS: Aspirin 81 MG Tab.Chew PO SCH (08:38)
[2020-03-26] MEDS: Acetaminophen 325 MG Tab PO PRN ×2 (08:39→20:37)
[2020-03-26] MEDS: Carvedilol 12.5 MG Tab PO SCH ×2 (08:40→20:16)
[2020-03-26] MEDS: Sertraline 100 MG Tab PO SCH (08:40)
[2020-03-26] MEDS: Fluticasone Propionate 110 MCG/Puff 12 GM Inhaler INH SCH ×2 (08:46→20:54)
[2020-03-26] MEDS ORDERED: Furosemide 20 MG/2 ML VIAL IVPUSH ONE (11:01)
[2020-03-26] MEDS: Enoxaparin 40 MG/0.4 ML Syringe SUBCUT SCH ×2 (12:43→20:14)
[2020-03-26] MEDS: Levofloxacin/Dextrose 5%-Water 750 MG in Premix Bag 1 BAG IV SCH (20:16)
[2020-03-26] MEDS: atorvaSTATin 40 MG Tab PO SCH (20:37)
[2020-03-26] MEDS: Insulin Glargine,Human Rec. Analog 100 Units/ML 3 ML Pen SUBCUT SCH (20:52)
[2020-03-26] MEDS ORDERED: Glucagon,Human Recombinant 1 MG Vial IM PRN (21:16)
[2020-03-26] MEDS ORDERED: 50% Dextrose in Water 50 ML Syringe IVPUSH PRN (21:16)
[2020-03-26] MEDS ORDERED: Insulin Aspart 100 Units/ML 3 ML Pen SUBCUT ONE (21:18)
[2020-03-27] MEDS: Albuterol/Ipratropium 4 GM Inhalation Spray INH SCH ×4 (06:03→23:23)
[2020-03-27 06:27] LABS: BLOOD UREA NITROGEN,BUN 28 mg/dL (7.0-18.0); CARBON DIOXIDE,CO2 28.3 mmol/L (21.0-32.0); CHLORIDE,CL 100 mmol/L (98-107); GLUCOSE RANDOM 160 mg/dL (74-106); POTASSIUM,K 4.6 mmol/L (3.5-5.1); SODIUM,NA 137 mmol/L (136-145)
[2020-03-27] MEDS: Nystatin Topical Powder 15 GM Bottle TOP SCH ×4 (06:42→21:45)
--- NOTE | 2020-03-27 08:12 | PCM.PN ---
- General Info Date of Service: 03/27/20 Admission Dx/Problem (Free Text): Admission Diagnosis/Problem Admission Diagnosis/Problem Syncope due to orthostatic hypotension Subjective Update: Had significant shortness of breath this morning while checking orthostatics. She needed to increase oxygen to 10 L to keep sats above 90. After that episode she is feeling much better I was able to wean her back down to 6 L nasal cannula satting 93%. She reported some mild quick chest pain without event. Pain quickly resolved within seconds. Chest x-ray obtained at that time as well as troponin. She is feeling much improved but did feel dizzy during that event. Functional Status: Reports: Pain Controlled, Tolerating Diet, Ambulating, Urinating - Review of Systems General: Reports: No Symptoms. Denies: Weakness, Fatigue HEENT: Reports: No Symptoms. Denies: Headaches, Visual Changes Pulmonary: Reports: Shortness of Breath, Cough (Dry) Cardiovascular: Reports: Dyspnea on Exertion, Lightheadedness (With position change) Gastrointestinal: Reports: No Symptoms. Denies: Abdominal Pain, Nausea, Vomi ting Genitourinary: Reports: No Symptoms. Denies: Dysuria, Frequency Musculoskeletal: Reports: No Symptoms. Denies: Neck Pain, Shoulder Pain Skin: Reports: No Symptoms Neurological: Reports: No Symptoms Psychiatric: Reports: No Symptoms - Patient Data Vitals - Most Recent: Last Vital Signs Temp 96.4 F L 03/27/20 05:40 Pulse 69 03/27/20 05:40 Resp 18 03/27/20 05:40 BP 132/68 03/27/20 05:40 Pulse Ox 90 L 03/27/20 06:35 Orthostatic Blood Pressure [ 102/46 Standing] Orthostatic Blood Pressure [ 100/62 Sitting] Orthostatic Blood Pressure [ 121/65 Supine] Weight - Most Recent: 133.764 kg I&O - Last 24 Hours: Intake & Output 03/26/20 03/27/20 03/27/20 22:59 06:59 14:59 Intake Total 950 880 Output Total 1100 1400 Balance -150 -520 Lab Results Last 24 Hours: Laboratory Results - last 24 hr 03/26/20 03/26/20 03/26/20 Range/Units 12:41 18:42 20:36 WBC (4.0-11.0) K/uL RBC (4.30-5.90) M/uL Hgb (12.0-16.0) g/dL Hct (36.0-46.0) % MCV (80.0-98.0) fL MCH (27.0-32.0) pg MCHC (31.0-37.0) g/dL RDW Std Deviation (28.0-62.0) fl RDW Coeff of Speedy (11.0-15.0) % Plt Count (150-400) K/uL MPV (7.40-12.00) fL Neut % (Auto) (48.0-80.0) % Lymph % (Auto) (16.0-40.0) % [place] % (Auto) (0.0-15.0) % Eos % (Auto) (0.0-7.0) % Baso % (Auto) (0.0-1.5) % Neut # (Auto) (1.4-5.7) K/uL Lymph # (Auto) (0.6-2.4) K/uL [place] # (Auto) (0.0-0.8) K/uL Eos # (Auto) (0.0-0.7) K/uL Baso # (Auto) (0.0-0.1) K/uL Nucleated RBC % /100WBC Nucleated RBCs # K/uL Sodium (136-145) mmol/L Potassium (3.5-5.1) mmol/L Chloride (98-107) mmol/L Carbon Dioxide (21.0-32.0) mmol/L BUN (7.0-18.0) mg/dL Creatinine (0.6-1.0) mg/dL Est Cr Clr Drug Dosing mL/min Estimated GFR (MDRD) ml/min Glucose (74-106) mg/dL POC Glucose 279 H 316 H > 500 H (60-110) mg/dL Calcium (8.5-10.1) mg/dL Magnesium (1.8-2.4) mg/dL 03/26/20 03/27/20 03/27/20 Range/Units 23:12 01:02 05:40 WBC 5.49 (4.0-11.0) K/uL RBC 4.63 (4.30-5.90) M/uL Hgb 12.2 (12.0-16.0) g/dL Hct 37.4 (36.0-46.0) % MCV 80.8 (80.0-98.0) fL MCH 26.3 L (27.0-32.0) pg MCHC 32.6 (31.0-37.0) g/dL RDW Std Deviation 39.0 (28.0-62.0) fl RDW Coeff of Speedy 13 (11.0-15.0) % Plt Count 113 L (150-400) K/uL MPV 10.50 (7.40-12.00) fL Neut % (Auto) 87.8 H (48.0-80.0) % Lymph % (Auto) 5.8 L (16.0-40.0) % [place] % (Auto) 6.4 (0.0-15.0) % Eos % (Auto) 0.0 (0.0-7.0) % Baso % (Auto) 0.0 (0.0-1.5) % Neut # (Auto) 4.8 (1.4-5.7) K/uL Lymph # (Auto) 0.3 L (0.6-2.4) K/uL [place] # (Auto) 0.4 (0.0-0.8) K/uL Eos # (Auto) 0.0 (0.0-0.7) K/uL Baso # (Auto) 0.0 (0.0-0.1) K/uL Nucleated RBC % 0.0 /100WBC Nucleated RBCs # 0 K/uL Sodium (136-145) mmol/L Potassium (3.5-5.1) mmol/L Chloride (98-107) mmol/L Carbon Dioxide (21.0-32.0) mmol/L BUN (7.0-18.0) mg/dL Creatinine (0.6-1.0) mg/dL Est Cr Clr Drug Dosing mL/min Estimated GFR (MDRD) ml/min Glucose (74-106) mg/dL POC Glucose 404 H 277 H (60-110) mg/dL Calcium (8.5-10.1) mg/dL Magnesium (1.8-2.4) mg/dL 03/27/20 03/27/20 Range/Units 05:40 06:40 WBC (4.0-11.0) K/uL RBC (4.30-5.90) M/uL Hgb (12.0-16.0) g/dL Hct (36.0-46.0) % MCV (80.0-98.0) fL MCH (27.0-32.0) pg MCHC (31.0-37.0) g/dL RDW Std Deviation (28.0-62.0) fl RDW Coeff of Speedy (11.0-15.0) % Plt Count (150-400) K/uL MPV (7.40-12.00) fL Neut % (Auto) (48.0-80.0) % Lymph % (Auto) (16.0-40.0) % [place] % (Auto) (0.0-15.0) % Eos % (Auto) (0.0-7.0) % Baso % (Auto) (0.0-1.5) % Neut # (Auto) (1.4-5.7) K/uL Lymph # (Auto) (0.6-2.4) K/uL [place] # (Auto) (0.0-0.8) K/uL Eos # (Auto) (0.0-0.7) K/uL Baso # (Auto) (0.0-0.1) K/uL Nucleated RBC % /100WBC Nucleated RBCs # K/uL Sodium 137 (136-145) mmol/L Potassium 4.6 (3.5-5.1) mmol/L Chloride 100 (98-107) mmol/L Carbon Dioxide 28.3 (21.0-32.0) mmol/L BUN 28 H (7.0-18.0) mg/dL Creatinine 0.9 (0.6-1.0) mg/dL Est Cr Clr Drug Dosing 77.95 mL/min Estimated GFR (MDRD) > 60.0 ml/min Glucose 160 H (74-106) mg/dL POC Glucose 158 H (60-110) mg/dL Calcium 8.9 (8.5-10.1) mg/dL Magnesium 2.1 (1.8-2.4) mg/dL Med Orders - Current: Current Medications Acetaminophen (Tylenol) 650 mg PO Q4H PRN PRN Reason: Pain Last Admin: 03/26/20 20:37 Dose: 650 mg Documented by: Albuterol/Ipratropium (Duoneb 3.0-0.5 Mg/3 Ml) 3 ml NEB Q4HRRT PRN PRN Reason: Shortness Of Breath/wheezing Albuterol/Ipratropium (Combivent Respimat) 0 gm INH QID [facility] Last Admin: 03/27/20 06:03 Dose: 1 inhalation Documented by: Aspirin (Aspirin) 81 mg PO DAILY [facility] Last Admin: 03/26/20 08:38 Dose: 81 mg Documented by: Atorvastatin Calcium (Lipitor) 80 mg PO BEDTIME [facility] Last Admin: 03/26/20 20:37 Dose: 80 mg Documented by: Benzonatate (Tessalon Perles) 200 mg PO TID PRN PRN Reason: Cough Last Admin: 03/25/20 20:35 Dose: 200 mg Documented by: Carvedilol (Coreg) 12.5 mg PO BID [facility] Last Admin: 03/26/20 20:16 Dose: 12.5 mg Documented by: Clopidogrel Bisulfate (Plavix) 75 mg PO DAILY [facility] Last Admin: 03/26/20 08:38 Dose: 75 mg Documented by: Dexamethasone (Dexamethasone) 6 mg PO DAILY [facility] Last Admin: 03/26/20 08:38 Dose: 6 mg Documented by: Dextrose/Water (Dextrose 50% In Water) 50 ml IVPUSH ASDIRECTED PRN PRN Reason: Hypoglycemia Enoxaparin Sodium (Lovenox) 40 mg SUBCUT BID [facility] Last Admin: 03/26/20 20:14 Dose: 40 mg Documented by: Fluticasone Propionate (Flovent Hfa 110 Mcg) 0 gm INH BID [facility] Last Admin: 03/26/20 20:54 Dose: 2 puff Documented by: Glucagon (Glucagen) 1 mg IM ASDIRECTED PRN PRN Reason: Hypoglycemia Levofloxacin/Dextrose 750 mg/ (Premix) 150 mls @ 100 mls/hr IV Q24H [facility] Last Admin: 03/26/20 20:16 Dose: 100 mls/hr Documented by: Insulin Aspart (Novolog) 20 unit SUBCUT TIDAC [facility] Last Admin: 03/26/20 18:43 Dose: 20 unit Documented by: Insulin Aspart (Novolog) 0 unit SUBCUT TIDAC [facility]; Protocol Last Admin: 03/26/20 23:20 Dose: 10 unit Documented by: Insulin Glargine (Lantus Solostar) 50 units SUBCUT BEDTIME [facility] Last Admin: 03/26/20 20:52 Dose: 50 units Documented by: Nitroglycerin (Nitrostat) 0.4 mg SL .EVERY 5 MINUTES PRN PRN Reason: Chest Pain Nystatin (Nystop) 0 gm TOP TID [facility] Last Admin: 03/27/20 06:42 Dose: 1 applic Documented by: Ondansetron HCl (Zofran Odt) 4 mg PO Q4H PRN PRN Reason: nausea, able to take PO Pantoprazole Sodium (Protonix) 40 mg PO DAILY [facility] Last Admin: 03/26/20 08:38 Dose: 40 mg Documented by: Sertraline HCl (Zoloft) 200 mg PO DAILY [facility] Last Admin: 03/26/20 08:40 Dose: Not Given Documented by: Sodium Chloride (Saline Flush) 10 ml FLUSH ASDIRECTED PRN PRN Reason: Keep Vein Open Last Admin: 03/23/20 19:05 Dose: 10 ml Documented by: Sodium Chloride (Saline Flush) 2.5 ml FLUSH ASDIRECTED PRN PRN Reason: Keep Vein Open Last Admin: 03/23/20 19:05 Dose: 2.5 ml Documented by: Discontinued Medications Acetaminophen (Tylenol) 650 mg PO NOW ONE Stop: 03/23/20 17:51 Last Admin: 03/23/20 19:08 Dose: 650 mg Documented by: Dextrose/Water (Dextrose 50% In Water) 50 ml IV ASDIRECTED PRN PRN Reason: Hypoglycemia Dextrose/Water (Dextrose 50% In Water) 50 ml IV ASDIRECTED PRN PRN Reason: Hypoglycemia Dextrose/Water (Dextrose 50% In Water) 50 ml IVPUSH ASDIRECTED PRN PRN Reason: Hypoglycemia Dextrose/Water (Dextrose 50% In Water) 50 ml IVPUSH ASDIRECTED PRN PRN Reason: Hypoglycemia Enoxaparin Sodium (Lovenox) 40 mg SUBCUT Q24H [facility] Last Admin: 03/23/20 23:08 Dose: Not Given Documented by: Enoxaparin Sodium (Lovenox) 40 mg SUBCUT BEDTIME [facility] Last Admin: 03/25/20 20:36 Dose: 40 mg Documented by: Fentanyl (Fentanyl) 100 mcg IVPUSH ONETIME ONE Stop: 03/23/20 16:29 Last Admin: 03/23/20 19:06 Dose: Not Given Documented by: Furosemide (Lasix) 20 mg IVPUSH ONETIME ONE Stop: 03/26/20 11:02 Last Admin: 03/26/20 12:43 Dose: 20 mg Documented by: Glucagon (Glucagen) 1 mg IM ASDIRECTED PRN PRN Reason: Hypoglycemia Glucagon (Glucagen) 1 mg IM ASDIRECTED PRN PRN Reason: Hypoglycemia Glucagon (Glucagen) 1 mg IM ASDIRECTED PRN PRN Reason: Hypoglycemia Glucagon (Glucagen) 1 mg IM ASDIRECTED PRN PRN Reason: Hypoglycemia Sodium Chloride (Normal Saline) 1,000 mls @ 999 mls/hr IV STAT ONE Stop: 03/23/20 19:08 Last Admin: 03/23/20 19:08 Dose: 999 mls/hr Documented by: [facility] Protocol Last Admin: 03/25/20 13:20 Dose: Not Given Documented by: [facility]ulin [facility] ([facility]olog) [facility] Last Admin: 03/24/20 12:34 Dose: Not Given Documented by: Insulin Aspart (Novolog) 15 unit SUBCUT ONETIME ONE Stop: 03/24/20 12:04 Last Admin: 03/24/20 12:16 Dose: 15 units Documented by: [facility]ulin Aspart ([facility]olog) [facility] Last Admin: 03/25/20 13:21 Dose: Not Given Documented by: Insulin Aspart (Novolog) 15 unit SUBCUT ONETIME ONE Stop: 03/24/20 20:45 Last Admin: 03/24/20 21:05 Dose: 15 unit Documented by: Insulin Aspart (Novolog) 20 unit SUBCUT ONETIME ONE Stop: 03/27/20 21:19 Insulin Aspart (Novolog) 0 unit SUBCUT TIDAC [facility]; Protocol Insulin Aspart (Novolog) 20 unit SUBCUT ONETIME ONE Stop: 03/26/20 21:19 Last Admin: 03/26/20 21:35 Dose: 20 unit Documented by: Iopamidol (Isovue Multipack-370 (76%)) 100 ml IVPUSH ONETIME ONE Stop: 03/23/20 17:47 Last Admin: 03/23/20 17:46 Dose: 100 ml Documented by: - Exam Quality Assessment: Supplemental Oxygen (6 L), DVT Prophylaxis (Lovenox twice daily) General: Alert, Oriented, Cooperative, No Acute Distress Lungs: Clear to Auscultation, Normal Respiratory Effort Cardiovascular: Regular Rate, Regular Rhythm GI/Abdominal Exam: Normal Bowel Sounds, Soft, Non-Tender Back Exam: Normal Inspection, Full Range of Motion Extremities: Normal Inspection, Normal Range of Motion, Non-Tender, No Pedal Edema Neurological: No New Focal Deficit Psy/Mental Status: Alert, Normal Affect, Normal Mood Sepsis Event Note - Evaluation Sepsis Screening Result: No Definite Risk - Focused Exam Vital Signs: Vital Signs Temp Pulse Pulse Resp BP BP Pulse Ox 03/27/20 06:35 90 L 03/27/20 06:30 78 L 03/27/20 05:40 96.4 F L 69 18 132/68 93 L 03/27/20 01:02 96.2 F L 69 18 136/67 93 L 03/26/20 20:16 71 128/75 - Problem List & Annotations (1) CORNELIA (acute kidney injury) SNOMED Code(s): 08108050, 59675182 Code(s): N17.9 - ACUTE KIDNEY FAILURE, UNSPECIFIED Status: Acute Current Visit: Yes (2) COVID-19 SNOMED Code(s): 290327746 Code(s): U07.1 - COVID-19 Status: Acute Current Visit: Yes (3) Chest pain, rule out acute myocardial infarction SNOMED Code(s): 41693651 Code(s): R07.9 - CHEST PAIN, UNSPECIFIED Status: Acute Current Visit: Yes (4) Orthostatic hypotension SNOMED Code(s): 94947116 Code(s): I95.1 - ORTHOSTATIC HYPOTENSION Status: Acute Current Visit: Yes (5) Syncope SNOMED Code(s): 353254035 Code(s): R55 - SYNCOPE AND COLLAPSE Status: Acute Current Visit: Yes Qualifiers: Syncope type: unspecified Qualified Code(s): R55 - Syncope and collapse (6) (HFpEF) heart failure with preserved ejection fraction SNOMED Code(s): 204727534 Code(s): I50.30 - UNSPECIFIED DIASTOLIC (CONGESTIVE) HEART FAILURE Status: Acute Current Visit: No Qualifiers: Heart failure chronicity: acute on chronic Qualified Code(s): I50.33 - Acute on chronic diastolic (congestive) heart failure (7) Acute respiratory failure with hypoxia SNOMED Code(s): 47227427, 952958364 Code(s): J96.01 - ACUTE RESPIRATORY FAILURE WITH HYPOXIA Status: Acute Current Visit: No (8) DM type 2 (diabetes mellitus, type 2) SNOMED Code(s): 95548518 Code(s): E11.9 - TYPE 2 DIABETES MELLITUS WITHOUT COMPLICATIONS Status: Chronic Current Visit: No Qualifiers: 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: with fci use Diabetes mellitus complication status: with hyperglycemia Qualified Code(s): E11.65 - Type 2 diabetes mellitus with hyperglycemia; Z79.4 - long-term (current) use of insulin (9) HLD (hyperlipidemia) SNOMED Code(s): 18260524 Code(s): E78.5 - HYPERLIPIDEMIA, UNSPECIFIED Status: Chronic Current Visit: No (10) HTN (hypertension) SNOMED Code(s): 42588653 Code(s): I10 - ESSENTIAL (PRIMARY) HYPERTENSION Status: Chronic Current Visit: No (11) Obesity SNOMED Code(s): 405415874, 791632529 Code(s): E66.9 - OBESITY, UNSPECIFIED Status: Chronic Current Visit: No Qualifiers: Serious obesity comorbidity presence: with serious comorbidity (12) History of CVA (cerebrovascular accident) SNOMED Code(s): 992838406 Code(s): Z86.73 - PRSNL HX OF TIA (TIA), AND CEREB INFRC W/O RESID DEFICITS Status: Acute Current Visit: Yes - Problem List Review Problem List Initiated/Reviewed/Updated: Yes - My Orders Last 24 Hours: My Active Orders 03/26/20 12:17 Enoxaparin [Lovenox] 40 mg SUBCUT BID - Plan Plan:: This 49-year-old female admitted with multiple syncopal episodes at home with weakness shortness of breath 1. Syncope -Obtain orthostatic vital signs today, continues to be orthostatic. - Continue Coreg - Monitor on telemetry, no arrhythmias 2. COVID-19 infection -Mild improvement -Oxygen needs continue at 5 to 6 L today. -Continue dexamethasone 6 mg p.o. daily -Oxygen therapy to keep sats greater than 92%, wean as possible -Encouraged proning or at least left lateral decubitus position. -IS and flutter -Combivent inhaler every 4 hours as needed dyspnea -Lovenox 40 mg subcut twice daily - Monitor liver function daily -Continue guaifenesin with codeine as needed cough along with Tessalon Perles -Chest x-ray this morning stable - Due to chest pain and significant hypoxia this morning will obtain repeat CTA to rule out PE. 3. CORNELIA -Resolved 4. HFpEF/CAD/hypertension/CVA/Carotid stenosis -Daily weights strict I's and O's -Continue carvedilol 12.5 mg twice daily -Hold amlodipine and lisinopril for now. - Continue aspirin and Plavix - Continue statin and Zetia - hx of high grade stenosis L ICA, with TPA administration and CVA in 2019. 5. Dm Type 2 -Blood sugars elevated likely secondary to dexamethasone -NovoLog 20 units with each meal - Lantus 50 units subcutaneously in the evening - NovoLog sliding scale with TIDAC VTE prophylaxis: Lovenox twice daily CODE STATUS: FULL CODE Dispo: 2 to 3 days pending improvement.
--- NOTE | 2020-03-27 08:24 | CR ---
Indication: Hypoxia. COVID positive. Technique: Chest 1 view Comparison: CT chest March 23, 2020. Findings/Impression: Cardiovascular and mediastinum: Heart size and vasculature are normal in caliber and appearance. Lungs and pleural space: Subtle ill-defined bilateral pulmonary infiltrates consistent with COVID pneumonia are not significantly changed. No effusions and no pneumothorax. Bones and soft tissues: No acute findings. Dictated by Chalo Duran MD @ Mar 27 2020 8:21AM Signed by Dr. Chalo Duran @ Mar 27 2020 8:22AM
[2020-03-27] MEDS: Sertraline 100 MG Tab PO SCH (09:38)
[2020-03-27] MEDS: Insulin Aspart 100 Units/ML 3 ML Pen SUBCUT SCH ×6 (09:39→17:58)
[2020-03-27] MEDS: Enoxaparin 40 MG/0.4 ML Syringe SUBCUT SCH ×2 (09:42→20:12)
[2020-03-27] MEDS: Dexamethasone 4 MG Tab PO SCH (09:43)
[2020-03-27] MEDS: Acetaminophen 325 MG Tab PO PRN ×2 (09:44→21:15)
[2020-03-27] MEDS: Clopidogrel 75 MG Tab PO SCH (09:45)
[2020-03-27] MEDS: Pantoprazole 40 MG Tab.CR PO SCH (09:45)
[2020-03-27] MEDS: Carvedilol 12.5 MG Tab PO SCH ×2 (09:47→20:12)
[2020-03-27] MEDS: Fluticasone Propionate 110 MCG/Puff 12 GM Inhaler INH SCH ×2 (09:49→20:09)
[2020-03-27] MEDS: Aspirin 81 MG Tab.Chew PO SCH (09:49)
[2020-03-27] MEDS ORDERED: Iopamidol 755 MG/ML 500 ML Multipack Bottle IVPUSH STA ×2 (12:51→14:05)
--- NOTE | 2020-03-27 14:26 | CT ---
Indication: Coronavirus, shortness of breath Technique: Volumetric multidetector CT images of the chest were obtained after the administration of IV contrast. 100 cc Isovue 370 Comparison: CT chest March 23, 2020 Findings: The thoracic inlet and thyroid gland are unremarkable. The thoracic aorta is nonaneurysmal. There is no central filling defect to suggest pulmonary embolism. There are reactive mediastinal, hilar and subcarinal nodes similar to previous exam. There is traction bronchiectasis within the lung bases central bronchial thickening. There are extensive ground-glass opacities seen throughout the bilateral hemithoraces commensurate with extensive multifocal infiltrates which are similar to previous exam. There is no evidence of pulmonary mass or suspicious pulmonary nodule. The partially visualized upper abdominal structures demonstrate hepatosplenomegaly, similar to previous exam. The thoracic vertebral body heights remain intact alignment without significant degenerative change or acute osseous abnormality. Impression: No evidence of pulmonary embolus. Extensive reactive mediastinal adenopathy with diffuse ground-glass and interstitial opacities similar to previous exam commensurate with history of coronavirus Please note that all CT scans at this facility use dose modulation, iterative reconstruction, and/or weight-based dosing when appropriate to reduce radiation dose to as low as reasonably achievable. Dictated by Ernesto Ohara MD @ Mar 27 2020 2:18PM Signed by Dr. Ernesto Ohara @ Mar 27 2020 2:25PM
[2020-03-27] MEDS: Benzonatate 100 MG Cap PO PRN (20:10)
[2020-03-27] MEDS: Levofloxacin/Dextrose 5%-Water 750 MG in Premix Bag 1 BAG IV SCH (20:10)
[2020-03-27] MEDS: Insulin Glargine,Human Rec. Analog 100 Units/ML 3 ML Pen SUBCUT SCH (20:11)
[2020-03-27] MEDS: atorvaSTATin 40 MG Tab PO SCH (20:11)
[2020-03-27] MEDS ORDERED: Insulin Aspart 100 Units/ML 3 ML Pen SUBCUT ONE (21:18)
[2020-03-27] MEDS ORDERED: Insulin Aspart 100 Units/ML 3 ML Pen SUBCUT SCH (22:30)
[2020-03-28] MEDS: Nystatin Topical Powder 15 GM Bottle TOP SCH ×3 (05:06→22:43)
[2020-03-28] MEDS: Albuterol/Ipratropium 4 GM Inhalation Spray INH SCH ×4 (05:06→23:31)
[2020-03-28 06:26] LABS: BLOOD UREA NITROGEN,BUN 25 mg/dL (7.0-18.0); CARBON DIOXIDE,CO2 27.8 mmol/L (21.0-32.0); CHLORIDE,CL 100 mmol/L (98-107); GLUCOSE RANDOM 171 mg/dL (74-106); POTASSIUM,K 3.8 mmol/L (3.5-5.1); SODIUM,NA 137 mmol/L (136-145)
[2020-03-28] MEDS: Insulin Aspart 100 Units/ML 3 ML Pen SUBCUT SCH ×6 (07:37→17:47)
--- NOTE | 2020-03-28 08:05 | PCM.PN ---
- General Info Date of Service: 03/28/20 Admission Dx/Problem (Free Text): Admission Diagnosis/Problem Admission Diagnosis/Problem Syncope due to orthostatic hypotension Subjective Update: Feeling mildly improved. Reports that she is feeling really well last evening but seems like every morning she feels poorly that improved slowly during the day. Denies any chest pain. Dry cough. Tolerating diet well. Reports mild dizziness when she still gets up to the bathroom. Functional Status: Reports: Pain Controlled, Tolerating Diet, Ambulating - Review of Systems General: Reports: Weakness, Fatigue, Malaise HEENT: Reports: Sinus Congestion. Denies: Headaches Pulmonary: Reports: Shortness of Breath, Cough (Try). Denies: Wheezing Cardiovascular: Reports: Lightheadedness (And dizziness with ambulation). Denies: Chest Pain Gastrointestinal: Reports: No Symptoms. Denies: Abdominal Pain, Decreased Appetite, Nausea, Vomiting Genitourinary: Reports: No Symptoms. Denies: Dysuria, Frequency, Burning Musculoskeletal: Reports: No Symptoms Skin: Reports: No Symptoms Neurological: Reports: No Symptoms Psychiatric: Reports: No Symptoms - Patient Data Vitals - Most Recent: Last Vital Signs Temp 97.9 F 03/28/20 07:35 Pulse 76 03/28/20 07:35 Resp 20 03/28/20 07:35 BP 122/67 03/28/20 07:35 Pulse Ox 89 L 03/28/20 07:35 Orthostatic Blood Pressure [ 102/46 Standing] Orthostatic Blood Pressure [ 100/62 Sitting] Orthostatic Blood Pressure [ 121/65 Supine] Weight - Most Recent: 133.084 kg I&O - Last 24 Hours: Intake & Output 03/27/20 03/28/20 03/28/20 22:59 06:59 14:59 Intake Total 900 990 Output Total 1400 800 Balance -500 190 Lab Results Last 24 Hours: Laboratory Results - last 24 hr 03/27/20 03/27/20 03/27/20 Range/Units 08:09 12:58 17:55 WBC (4.0-11.0) K/uL RBC (4.30-5.90) M/uL Hgb (12.0-16.0) g/dL Hct (36.0-46.0) % MCV (80.0-98.0) fL MCH (27.0-32.0) pg MCHC (31.0-37.0) g/dL RDW Std Deviation (28.0-62.0) fl RDW Coeff of Speedy (11.0-15.0) % Plt Count (150-400) K/uL MPV (7.40-12.00) fL Neut % (Auto) (48.0-80.0) % Lymph % (Auto) (16.0-40.0) % Branch % (Auto) (0.0-15.0) % Eos % (Auto) (0.0-7.0) % Baso % (Auto) (0.0-1.5) % Neut # (Auto) (1.4-5.7) K/uL Lymph # (Auto) (0.6-2.4) K/uL Branch # (Auto) (0.0-0.8) K/uL Eos # (Auto) (0.0-0.7) K/uL Baso # (Auto) (0.0-0.1) K/uL Nucleated RBC % /100WBC Nucleated RBCs # K/uL Sodium (136-145) mmol/L Potassium (3.5-5.1) mmol/L Chloride (98-107) mmol/L Carbon Dioxide (21.0-32.0) mmol/L BUN (7.0-18.0) mg/dL Creatinine (0.6-1.0) mg/dL Est Cr Clr Drug Dosing mL/min Estimated GFR (MDRD) ml/min Glucose (74-106) mg/dL POC Glucose 153 H 184 H (60-110) mg/dL Calcium (8.5-10.1) mg/dL Magnesium (1.8-2.4) mg/dL Total Bilirubin (0.2-1.0) mg/dL AST (15-37) IU/L ALT (14-63) IU/L Alkaline Phosphatase (46-116) U/L Troponin I < 0.050 (0.000-0.056) ng/mL Total Protein (6.4-8.2) g/dL Albumin (3.4-5.0) g/dL Globulin (2.6-4.0) g/dL Albumin/Globulin Ratio (0.9-1.6) 11/03/28/20 03/28/20 Range/Units 20:22 05:40 05:40 WBC 6.23 (4.0-11.0) K/uL RBC 4.82 (4.30-5.90) M/uL Hgb 12.7 (12.0-16.0) g/dL Hct 39.2 (36.0-46.0) % MCV 81.3 (80.0-98.0) fL MCH 26.3 L (27.0-32.0) pg MCHC 32.4 (31.0-37.0) g/dL RDW Std Deviation 39.6 (28.0-62.0) fl RDW Coeff of Speedy 13 (11.0-15.0) % Plt Count 121 L (150-400) K/uL MPV 10.80 (7.40-12.00) fL Neut % (Auto) 88.9 H (48.0-80.0) % Lymph % (Auto) 5.9 L (16.0-40.0) % Branch % (Auto) 5.0 (0.0-15.0) % Eos % (Auto) 0.0 (0.0-7.0) % Baso % (Auto) 0.2 (0.0-1.5) % Neut # (Auto) 5.5 (1.4-5.7) K/uL Lymph # (Auto) 0.4 L (0.6-2.4) K/uL Branch # (Auto) 0.3 (0.0-0.8) K/uL Eos # (Auto) 0.0 (0.0-0.7) K/uL Baso # (Auto) 0.0 (0.0-0.1) K/uL Nucleated RBC % 0.0 /100WBC Nucleated RBCs # 0 K/uL Sodium 137 (136-145) mmol/L Potassium 3.8 (3.5-5.1) mmol/L Chloride 100 (98-107) mmol/L Carbon Dioxide 27.8 (21.0-32.0) mmol/L BUN 25 H (7.0-18.0) mg/dL Creatinine 0.9 (0.6-1.0) mg/dL Est Cr Clr Drug Dosing 77.95 mL/min Estimated GFR (MDRD) > 60.0 ml/min Glucose 171 H (74-106) mg/dL POC Glucose 195 H (60-110) mg/dL Calcium 8.5 (8.5-10.1) mg/dL Magnesium 1.9 (1.8-2.4) mg/dL Total Bilirubin 0.4 (0.2-1.0) mg/dL AST 18 (15-37) IU/L ALT 27 (14-63) IU/L Alkaline Phosphatase 94 (46-116) U/L Troponin I (0.000-0.056) ng/mL Total Protein 6.9 (6.4-8.2) g/dL Albumin 2.6 L (3.4-5.0) g/dL Globulin 4.3 H (2.6-4.0) g/dL Albumin/Globulin Ratio 0.6 L (0.9-1.6) 20/20 Range/Units 06:12 WBC (4.0-11.0) K/uL RBC (4.30-5.90) M/uL Hgb (12.0-16.0) g/dL Hct (36.0-46.0) % MCV (80.0-98.0) fL MCH (27.0-32.0) pg MCHC (31.0-37.0) g/dL RDW Std Deviation (28.0-62.0) fl RDW Coeff of Speedy (11.0-15.0) % Plt Count (150-400) K/uL MPV (7.40-12.00) fL Neut % (Auto) (48.0-80.0) % Lymph % (Auto) (16.0-40.0) % Branch % (Auto) (0.0-15.0) % Eos % (Auto) (0.0-7.0) % Baso % (Auto) (0.0-1.5) % Neut # (Auto) (1.4-5.7) K/uL Lymph # (Auto) (0.6-2.4) K/uL Branch # (Auto) (0.0-0.8) K/uL Eos # (Auto) (0.0-0.7) K/uL Baso # (Auto) (0.0-0.1) K/uL Nucleated RBC % /100WBC Nucleated RBCs # K/uL Sodium (136-145) mmol/L Potassium (3.5-5.1) mmol/L Chloride (98-107) mmol/L Carbon Dioxide (21.0-32.0) mmol/L BUN (7.0-18.0) mg/dL Creatinine (0.6-1.0) mg/dL Est Cr Clr Drug Dosing mL/min Estimated GFR (MDRD) ml/min Glucose (74-106) mg/dL POC Glucose 199 H (60-110) mg/dL Calcium (8.5-10.1) mg/dL Magnesium (1.8-2.4) mg/dL Total Bilirubin (0.2-1.0) mg/dL AST (15-37) IU/L ALT (14-63) IU/L Alkaline Phosphatase (46-116) U/L Troponin I (0.000-0.056) ng/mL Total Protein (6.4-8.2) g/dL Albumin (3.4-5.0) g/dL Globulin (2.6-4.0) g/dL Albumin/Globulin Ratio (0.9-1.6) Med Orders - Current: Current Medications Acetaminophen (Tylenol) 650 mg PO Q4H PRN PRN Reason: Pain Last Admin: 03/27/20 21:15 Dose: 650 mg Documented by: Albuterol/Ipratropium (Duoneb 3.0-0.5 Mg/3 Ml) 3 ml NEB Q4HRRT PRN PRN Reason: Shortness Of Breath/wheezing Albuterol/Ipratropium (Combivent Respimat) 0 gm INH QID [facility] Last Admin: 03/28/20 05:06 Dose: 1 inhalation Documented by: Aspirin (Aspirin) 81 mg PO DAILY [facility] Last Admin: 03/27/20 09:49 Dose: 81 mg Documented by: Atorvastatin Calcium (Lipitor) 80 mg PO BEDTIME [facility] Last Admin: 03/27/20 20:11 Dose: 80 mg Documented by: Benzonatate (Tessalon Perles) 200 mg PO TID PRN PRN Reason: Cough Last Admin: 03/27/20 20:10 Dose: 200 mg Documented by: Carvedilol (Coreg) 12.5 mg PO BID [facility] Last Admin: 03/27/20 20:12 Dose: 12.5 mg Documented by: Clopidogrel Bisulfate (Plavix) 75 mg PO DAILY [facility] Last Admin: 03/27/20 09:45 Dose: 75 mg Documented by: Dexamethasone (Dexamethasone) 6 mg PO DAILY [facility] Last Admin: 03/27/20 09:43 Dose: 6 mg Documented by: Dextrose/Water (Dextrose 50% In Water) 50 ml IVPUSH ASDIRECTED PRN PRN Reason: Hypoglycemia Enoxaparin Sodium (Lovenox) 40 mg SUBCUT BID [facility] Last Admin: 03/27/20 20:12 Dose: 40 mg Documented by: Fluticasone Propionate (Flovent Hfa 110 Mcg) 0 gm INH BID [facility] Last Admin: 03/27/20 20:09 Dose: 2 puff Documented by: Glucagon (Glucagen) 1 mg IM ASDIRECTED PRN PRN Reason: Hypoglycemia Levofloxacin/Dextrose 750 mg/ (Premix) 150 mls @ 100 mls/hr IV Q24H [facility] Last Admin: 03/27/20 20:10 Dose: 100 mls/hr Documented by: Insulin Aspart (Novolog) 20 unit SUBCUT TIDAC [facility] Last Admin: 03/28/20 07:37 Dose: 20 unit Documented by: Insulin Aspart (Novolog) 0 unit SUBCUT TIDAC [facility]; Protocol Last Admin: 03/28/20 07:38 Dose: 2 unit Documented by: Insulin Glargine (Lantus Solostar) 50 units SUBCUT BEDTIME [facility] Last Admin: 03/27/20 20:11 Dose: 50 units Documented by: Nitroglycerin (Nitrostat) 0.4 mg SL .EVERY 5 MINUTES PRN PRN Reason: Chest Pain Nystatin (Nystop) 0 gm TOP TID [facility] Last Admin: 03/28/20 05:06 Dose: Not Given Documented by: Ondansetron HCl (Zofran Odt) 4 mg PO Q4H PRN PRN Reason: nausea, able to take PO Pantoprazole Sodium (Protonix) 40 mg PO DAILY [facility] Last Admin: 03/27/20 09:45 Dose: 40 mg Documented by: Sertraline HCl (Zoloft) 200 mg PO DAILY [facility] Last Admin: 03/27/20 09:38 Dose: Not Given Documented by: Sodium Chloride (Saline Flush) 10 ml FLUSH ASDIRECTED PRN PRN Reason: Keep Vein Open Last Admin: 03/23/20 19:05 Dose: 10 ml Documented by: Sodium Chloride (Saline Flush) 2.5 ml FLUSH ASDIRECTED PRN PRN Reason: Keep Vein Open Last Admin: 03/23/20 19:05 Dose: 2.5 ml Documented by: Discontinued Medications Acetaminophen (Tylenol) 650 mg PO NOW ONE Stop: 03/23/20 17:51 Last Admin: 03/23/20 19:08 Dose: 650 mg Documented by: Dextrose/Water (Dextrose 50% In Water) 50 ml IV ASDIRECTED PRN PRN Reason: Hypoglycemia Dextrose/Water (Dextrose 50% In Water) 50 ml IV ASDIRECTED PRN PRN Reason: Hypoglycemia Dextrose/Water (Dextrose 50% In Water) 50 ml IVPUSH ASDIRECTED PRN PRN Reason: Hypoglycemia Dextrose/Water (Dextrose 50% In Water) 50 ml IVPUSH ASDIRECTED PRN PRN Reason: Hypoglycemia Enoxaparin Sodium (Lovenox) 40 mg SUBCUT Q24H [facility] Last Admin: 03/23/20 23:08 Dose: Not Given Documented by: Enoxaparin Sodium (Lovenox) 40 mg SUBCUT BEDTIME [facility] Last Admin: 03/25/20 20:36 Dose: 40 mg Documented by: Fentanyl (Fentanyl) 100 mcg IVPUSH ONETIME ONE Stop: 03/23/20 16:29 Last Admin: 03/23/20 19:06 Dose: Not Given Documented by: Furosemide (Lasix) 20 mg IVPUSH ONETIME ONE Stop: 03/26/20 11:02 Last Admin: 03/26/20 12:43 Dose: 20 mg Documented by: Glucagon (Glucagen) 1 mg IM ASDIRECTED PRN PRN Reason: Hypoglycemia Glucagon (Glucagen) 1 mg IM ASDIRECTED PRN PRN Reason: Hypoglycemia Glucagon (Glucagen) 1 mg IM ASDIRECTED PRN PRN Reason: Hypoglycemia Glucagon (Glucagen) 1 mg IM ASDIRECTED PRN PRN Reason: Hypoglycemia Sodium Chloride (Normal Saline) 1,000 mls @ 999 mls/hr IV STAT ONE Stop: 03/23/20 19:08 Last Admin: 03/23/20 19:08 Dose: 999 mls/hr Documented by: Insulin Aspart (Novolog) 0 unit SUBCUT TIDAC [facility]; Protocol Last Admin: 03/25/20 13:20 Dose: Not Given Documented by: Insulin Aspart (Novolog) 4 unit SUBCUT TIDAC [facility] Last Admin: 03/24/20 12:34 Dose: Not Given Documented by: Insulin Aspart (Novolog) 15 unit SUBCUT ONETIME ONE Stop: 03/24/20 12:04 Last Admin: 03/24/20 12:16 Dose: 15 units Documented by: Insulin Aspart (Novolog) [facility] Last Admin: 03/25/20 13:21 Dose: Not Given Documented by: Insulin Aspart (Novolog) 15 unit SUBCUT ONETIME ONE Stop: 03/24/20 20:45 Last Admin: 03/24/20 21:05 Dose: 15 unit Documented by: Insulin Aspart (Novolog) 20 unit SUBCUT ONETIME ONE Stop: 03/27/20 21:19 Insulin Aspart (Novolog) [facility]; Protocol Insulin Aspart (Novolog) 20 unit SUBCUT ONETIME ONE Stop: 03/26/20 21:19 Last Admin: 03/26/20 21:35 Dose: 20 unit Documented by: Iopamidol (Isovue Multipack-370 (76%)) 100 ml IVPUSH ONETIME ONE Stop: 03/23/20 17:47 Last Admin: 03/23/20 17:46 Dose: 100 ml Documented by: Iopamidol (Isovue Multipack-370 (76%)) 100 ml IVPUSH ONETIME STA Stop: 03/27/20 12:52 Last Admin: 03/27/20 12:52 Dose: 100 ml Documented by: Iopamidol (Isovue Multipack-370 (76%)) 100 ml IVPUSH ONETIME STA Stop: 03/27/20 14:06 Last Admin: 03/27/20 21:46 Dose: Not Given Documented by: - Exam Quality Assessment: Supplemental Oxygen (6 to 7 L high flow nasal cannula), DVT Prophylaxis (Lovenox) General: Alert, Oriented, Cooperative, No Acute Distress Lungs: Decreased Breath Sounds, Crackles (Fine crackles bilaterally continues to improve). No: Normal Respiratory Effort (Dyspnea) Cardiovascular: Regular Rate, Regular Rhythm GI/Abdominal Exam: Normal Bowel Sounds, Soft, Non-Tender Extremities: Normal Inspection, Non-Tender, No Pedal Edema, Normal Capillary Refill Wound/Incisions: Healing Well Neurological: No New Focal Deficit Psy/Mental Status: Alert, Normal Affect, Normal Mood Sepsis Event Note - Evaluation Sepsis Screening Result: No Definite Risk - Focused Exam Vital Signs: Vital Signs Temp Pulse Pulse Resp BP BP Pulse Ox 03/28/20 07:35 97.9 F 76 20 122/67 89 L 03/27/20 23:05 96.1 F L 78 20 134/99 H 90 L 03/27/20 20:23 96.4 F L 70 20 135/71 90 L 03/27/20 20:12 70 135/71 - Problem List & Annotations (1) CORNELIA (acute kidney injury) SNOMED Code(s): 35191593, 44830077 Code(s): N17.9 - ACUTE KIDNEY FAILURE, UNSPECIFIED Status: Acute Current Visit: Yes (2) COVID-19 SNOMED Code(s): 638529394 Code(s): U07.1 - COVID-19 Status: Acute Current Visit: Yes (3) Chest pain, rule out acute myocardial infarction SNOMED Code(s): 19769254 Code(s): R07.9 - CHEST PAIN, UNSPECIFIED Status: Acute Current Visit: Yes (4) Orthostatic hypotension SNOMED Code(s): 55388840 Code(s): I95.1 - ORTHOSTATIC HYPOTENSION Status: Acute Current Visit: Yes (5) Syncope SNOMED Code(s): 079941951 Code(s): R55 - SYNCOPE AND COLLAPSE Status: Acute Current Visit: Yes Qualifiers: Syncope type: unspecified Qualified Code(s): R55 - Syncope and collapse (6) (HFpEF) heart failure with preserved ejection fraction SNOMED Code(s): 095858674 Code(s): I50.30 - UNSPECIFIED DIASTOLIC (CONGESTIVE) HEART FAILURE Status: Acute Current Visit: No Qualifiers: Heart failure chronicity: acute on chronic Qualified Code(s): I50.33 - Acute on chronic diastolic (congestive) heart failure (7) Acute respiratory failure with hypoxia SNOMED Code(s): 08499951, 039394960 Code(s): J96.01 - ACUTE RESPIRATORY FAILURE WITH HYPOXIA Status: Acute Current Visit: No (8) DM type 2 (diabetes mellitus, type 2) SNOMED Code(s): 32476329 Code(s): E11.9 - TYPE 2 DIABETES MELLITUS WITHOUT COMPLICATIONS Status: Chronic Current Visit: No Qualifiers: Diabetes mellitus 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 Diabetes mellitus complication status: with hyperglycemia Qualified Code(s): E11.65 - Type 2 diabetes mellitus with hyperglycemia; Z79.4 - athletics director (current) use of insulin (9) HLD (hyperlipidemia) SNOMED Code(s): 68663353 Code(s): E78.5 - HYPERLIPIDEMIA, UNSPECIFIED Status: Chronic Current Visit: No (10) HTN (hypertension) SNOMED Code(s): 76190566 Code(s): I10 - ESSENTIAL (PRIMARY) HYPERTENSION Status: Chronic Current Visit: No (11) Obesity SNOMED Code(s): 023309994, 040614771 Code(s): E66.9 - OBESITY, UNSPECIFIED Status: Chronic Current Visit: No Qualifiers: Serious obesity comorbidity presence: with serious comorbidity (12) History of CVA (cerebrovascular accident) SNOMED Code(s): 334995568 Code(s): Z86.73 - PRSNL HX OF TIA (TIA), AND CEREB INFRC W/O RESID DEFICITS Status: Acute Current Visit: Yes - Problem List Review Problem List Initiated/Reviewed/Updated: Yes - My Orders Last 24 Hours: My Active Orders 03/29/20 05:11 CBC WITH AUTO DIFF [HEME] AM COMPREHENSIVE METABOLIC PN,CMP [CHEM] AM MG [MAGNESIUM] [CHEM] AM 03/30/20 05:11 CBC WITH AUTO DIFF [HEME] AM COMPREHENSIVE METABOLIC PN,CMP [CHEM] AM MG [MAGNESIUM] [CHEM] AM - Plan Plan:: This 49-year-old female admitted with multiple syncopal episodes at home with weakness shortness of breath 1. Syncope -Continues to be orthostatic. Dizziness with position change. - Continue Coreg - Monitor on telemetry, no arrhythmias 2. COVID-19 infection -Mild improvement -Oxygen needs continue at 5 to 6 L today. -Continue dexamethasone 6 mg p.o. daily today is day 5 -Oxygen therapy to keep sats greater than 92%, wean as possible -Encouraged proning or at least left lateral decubitus position. -IS and flutter -Combivent inhaler every 4 hours as needed dyspnea -Lovenox 40 mg subcut twice daily - Monitor liver function daily -Continue guaifenesin with codeine as needed cough along with Tessalon Perles -Repeat CTA shows no pulmonary embolism continued stable groundglass opacities bilaterally. 3. HFpEF/CAD/hypertension/CVA/Carotid stenosis -Daily weights strict I's and O's -Continue carvedilol 12.5 mg twice daily -Hold amlodipine and lisinopril for now. - Continue aspirin and Plavix - Continue statin and Zetia - hx of high grade stenosis L ICA, with TPA administration and CVA in 2019. 4. Dm Type 2 -Blood sugars continue to be well controlled -NovoLog 20 units with each meal, plus SSI - Lantus 50 units subcutaneously in the evening VTE prophylaxis: Lovenox twice daily CODE STATUS: FULL CODE Dispo: 2 to 3 days pending improvement.
[2020-03-28] MEDS: Fluticasone Propionate 110 MCG/Puff 12 GM Inhaler INH SCH ×2 (08:49→20:52)
[2020-03-28] MEDS: Aspirin 81 MG Tab.Chew PO SCH (09:26)
[2020-03-28] MEDS: Pantoprazole 40 MG Tab.CR PO SCH (09:26)
[2020-03-28] MEDS: Clopidogrel 75 MG Tab PO SCH (09:26)
[2020-03-28] MEDS: Enoxaparin 40 MG/0.4 ML Syringe SUBCUT SCH ×2 (09:27→20:23)
[2020-03-28] MEDS: Dexamethasone 4 MG Tab PO SCH (09:27)
[2020-03-28] MEDS: Sertraline 100 MG Tab PO SCH (09:27)
[2020-03-28] MEDS: Carvedilol 12.5 MG Tab PO SCH ×2 (09:27→20:15)
[2020-03-28] MEDS: Benzonatate 100 MG Cap PO PRN ×2 (09:27→17:45)
[2020-03-28] MEDS: Acetaminophen 325 MG Tab PO PRN ×2 (12:39→20:22)
[2020-03-28] MEDS: Levofloxacin/Dextrose 5%-Water 750 MG in Premix Bag 1 BAG IV SCH (20:15)
[2020-03-28] MEDS: atorvaSTATin 40 MG Tab PO SCH (20:15)
[2020-03-28] MEDS: Insulin Glargine,Human Rec. Analog 100 Units/ML 3 ML Pen SUBCUT SCH (20:25)
[2020-03-29] MEDS: Albuterol/Ipratropium 4 GM Inhalation Spray INH SCH ×4 (06:21→23:53)
[2020-03-29 06:58] LABS: BLOOD UREA NITROGEN,BUN 25 mg/dL (7.0-18.0); CHLORIDE,CL 102 mmol/L (98-107); GLUCOSE RANDOM 101 mg/dL (74-106); POTASSIUM,K 4.3 mmol/L (3.5-5.1); SODIUM,NA 138 mmol/L (136-145)
[2020-03-29] MEDS: Insulin Aspart 100 Units/ML 3 ML Pen SUBCUT SCH ×6 (07:10→17:46)
[2020-03-29] MEDS: Nystatin Topical Powder 15 GM Bottle TOP SCH ×3 (07:11→21:03)
[2020-03-29] MEDS ORDERED: Glucagon,Human Recombinant 1 MG Vial IM PRN (07:54)
[2020-03-29] MEDS ORDERED: 50% Dextrose in Water 50 ML Syringe IV PRN (07:54)
[2020-03-29] MEDS: Dexamethasone 4 MG Tab PO SCH (08:12)
[2020-03-29] MEDS: Clopidogrel 75 MG Tab PO SCH (08:12)
[2020-03-29] MEDS: Aspirin 81 MG Tab.Chew PO SCH (08:13)
[2020-03-29] MEDS: Enoxaparin 40 MG/0.4 ML Syringe SUBCUT SCH ×2 (08:13→20:36)
[2020-03-29] MEDS: Sertraline 100 MG Tab PO SCH (08:13)
[2020-03-29] MEDS: Pantoprazole 40 MG Tab.CR PO SCH (08:13)
[2020-03-29] MEDS: Carvedilol 12.5 MG Tab PO SCH ×2 (08:17→20:24)
[2020-03-29] MEDS: Insulin Aspart 100 Units/ML 3 ML Pen SUBCUT ONE (08:20)
[2020-03-29] MEDS: Fluticasone Propionate 110 MCG/Puff 12 GM Inhaler INH SCH ×2 (08:25→20:36)
[2020-03-29] MEDS: Acetaminophen 325 MG Tab PO PRN (12:00)
[2020-03-29] MEDS: Benzonatate 100 MG Cap PO PRN (12:02)
--- NOTE | 2020-03-29 13:58 | PCM.PN ---
- General Info Date of Service: 03/29/20 Subjective Update: Patient states that she has SOB while ambulating. Also states cough at times. Denies fever, chills, nausea, vomiting. States abdominal pain in RUQ and RLQ with loose stools. - Review of Systems General: Denies: Fever, Chills Pulmonary: Reports: Cough. Denies: Shortness of Breath, Pleuritic Chest Pain Cardiovascular: Reports: Dyspnea on Exertion. Denies: Chest Pain, Palpitations Gastrointestinal: Reports: Abdominal Pain Musculoskeletal: Denies: Back Pain Neurological: Denies: Dizziness, Headache - Patient Data Vitals - Most Recent: Last Vital Signs Temp 97.0 F 03/29/20 11:49 Pulse 73 03/29/20 11:49 Resp 16 03/29/20 11:49 BP 123/69 03/29/20 11:49 Pulse Ox 89 L 03/29/20 11:49 Orthostatic Blood Pressure [ 102/46 Standing] Orthostatic Blood Pressure [ 100/62 Sitting] Orthostatic Blood Pressure [ 121/65 Supine] Weight - Most Recent: 293 lb 6.4 oz I&O - Last 24 Hours: Intake & Output 03/28/20 03/29/20 03/29/20 22:59 06:59 14:59 Intake Total 650 550 202 Output Total 1000 1600 Balance -350 -1050 202 Lab Results Last 24 Hours: Laboratory Results - last 24 hr 03/28/20 03/28/20 03/29/20 Range/Units 17:44 20:25 06:04 WBC 8.08 (4.0-11.0) K/uL RBC 4.67 (4.30-5.90) M/uL Hgb 12.3 (12.0-16.0) g/dL Hct 38.2 (36.0-46.0) % MCV 81.8 (80.0-98.0) fL MCH 26.3 L (27.0-32.0) pg MCHC 32.2 (31.0-37.0) g/dL RDW Std Deviation 39.3 (28.0-62.0) fl RDW Coeff of Speedy 13 (11.0-15.0) % Plt Count 117 L (150-400) K/uL MPV 10.60 (7.40-12.00) fL Neut % (Auto) 91.5 H (48.0-80.0) % Lymph % (Auto) 4.1 L (16.0-40.0) % [place] % (Auto) 4.3 (0.0-15.0) % Eos % (Auto) 0.1 (0.0-7.0) % Baso % (Auto) 0.0 (0.0-1.5) % Neut # (Auto) 7.4 H (1.4-5.7) K/uL Lymph # (Auto) 0.3 L (0.6-2.4) K/uL [place] # (Auto) 0.4 (0.0-0.8) K/uL Eos # (Auto) 0.0 (0.0-0.7) K/uL Baso # (Auto) 0.0 (0.0-0.1) K/uL Nucleated RBC % 0.0 /100WBC Nucleated RBCs # 0 K/uL Sodium (136-145) mmol/L Potassium (3.5-5.1) mmol/L Chloride (98-107) mmol/L Carbon Dioxide (21.0-32.0) mmol/L BUN (7.0-18.0) mg/dL Creatinine (0.6-1.0) mg/dL Est Cr Clr Drug Dosing mL/min Estimated GFR (MDRD) ml/min Glucose (74-106) mg/dL POC Glucose 185 H 285 H (60-110) mg/dL Calcium (8.5-10.1) mg/dL Magnesium (1.8-2.4) mg/dL Total Bilirubin (0.2-1.0) mg/dL AST (15-37) IU/L ALT (14-63) IU/L Alkaline Phosphatase (46-116) U/L Total Protein (6.4-8.2) g/dL Albumin (3.4-5.0) g/dL Globulin (2.6-4.0) g/dL Albumin/Globulin Ratio (0.9-1.6) 03/29/20 03/29/20 03/29/20 Range/Units 06:04 07:10 12:00 WBC (4.0-11.0) K/uL RBC (4.30-5.90) M/uL Hgb (12.0-16.0) g/dL Hct (36.0-46.0) % MCV (80.0-98.0) fL MCH (27.0-32.0) pg MCHC (31.0-37.0) g/dL RDW Std Deviation (28.0-62.0) fl RDW Coeff of Speedy (11.0-15.0) % Plt Count (150-400) K/uL MPV (7.40-12.00) fL Neut % (Auto) (48.0-80.0) % Lymph % (Auto) (16.0-40.0) % [place] % (Auto) (0.0-15.0) % Eos % (Auto) (0.0-7.0) % Baso % (Auto) (0.0-1.5) % Neut # (Auto) (1.4-5.7) K/uL Lymph # (Auto) (0.6-2.4) K/uL [place] # (Auto) (0.0-0.8) K/uL Eos # (Auto) (0.0-0.7) K/uL Baso # (Auto) (0.0-0.1) K/uL Nucleated RBC % /100WBC Nucleated RBCs # K/uL Sodium 138 (136-145) mmol/L Potassium 4.3 (3.5-5.1) mmol/L Chloride 102 (98-107) mmol/L Carbon Dioxide 31.0 (21.0-32.0) mmol/L BUN 25 H (7.0-18.0) mg/dL Creatinine 0.8 (0.6-1.0) mg/dL Est Cr Clr Drug Dosing 87.70 mL/min Estimated GFR (MDRD) > 60.0 ml/min Glucose 101 (74-106) mg/dL POC Glucose 104 118 H (60-110) mg/dL Calcium 8.7 (8.5-10.1) mg/dL Magnesium 1.9 (1.8-2.4) mg/dL Total Bilirubin 0.4 (0.2-1.0) mg/dL AST 17 (15-37) IU/L ALT 24 (14-63) IU/L Alkaline Phosphatase 88 (46-116) U/L Total Protein 6.8 (6.4-8.2) g/dL Albumin 2.5 L (3.4-5.0) g/dL Globulin 4.3 H (2.6-4.0) g/dL Albumin/Globulin Ratio 0.6 L (0.9-1.6) Med Orders - Current: Current Medications Acetaminophen (Tylenol) 650 mg PO Q4H PRN PRN Reason: Pain Last Admin: 03/29/20 12:00 Dose: 650 mg Documented by: Albuterol/Ipratropium (Duoneb 3.0-0.5 Mg/3 Ml) 3 ml NEB Q4HRRT PRN PRN Reason: Shortness Of Breath/wheezing Albuterol/Ipratropium (Combivent Respimat) 0 gm INH QID [facility] Last Admin: 03/29/20 06:21 Dose: 1 inhalation Documented by: Aspirin (Aspirin) 81 mg PO DAILY [facility] Last Admin: 03/29/20 08:13 Dose: 81 mg Documented by: Atorvastatin Calcium (Lipitor) 80 mg PO BEDTIME [facility] Last Admin: 03/28/20 20:15 Dose: 80 mg Documented by: Benzonatate (Tessalon Perles) 200 mg PO TID PRN PRN Reason: Cough Last Admin: 03/29/20 12:02 Dose: 200 mg Documented by: Carvedilol (Coreg) 12.5 mg PO BID [facility] Last Admin: 03/29/20 08:17 Dose: 12.5 mg Documented by: Clopidogrel Bisulfate (Plavix) 75 mg PO DAILY [facility] Last Admin: 03/29/20 08:12 Dose: 75 mg Documented by: Dexamethasone (Dexamethasone) 6 mg PO DAILY [facility] Last Admin: 03/29/20 08:12 Dose: 6 mg Documented by: Dextrose/Water (Dextrose 50% In Water) 50 ml IVPUSH ASDIRECTED PRN PRN Reason: Hypoglycemia Dextrose/Water (Dextrose 50% In Water) 50 ml IV ASDIRECTED PRN PRN Reason: Hypoglycemia Enoxaparin Sodium (Lovenox) 40 mg SUBCUT BID [facility] Last Admin: 03/29/20 08:13 Dose: 40 mg Documented by: Fluticasone Propionate (Flovent Hfa 110 Mcg) 0 gm INH BID [facility] Last Admin: 03/29/20 08:25 Dose: 2 puff Documented by: Glucagon (Glucagen) 1 mg IM ASDIRECTED PRN PRN Reason: Hypoglycemia Glucagon (Glucagen) 1 mg IM ASDIRECTED PRN PRN Reason: Hypoglycemia Levofloxacin/Dextrose 750 mg/ (Premix) 150 mls @ 100 mls/hr IV Q24H [facility] Last Admin: 03/28/20 20:15 Dose: 100 mls/hr Documented by: Insulin Aspart (Novolog) 20 unit SUBCUT TIDAC [facility] Last Admin: 03/29/20 12:06 Dose: 20 unit Documented by: Insulin Aspart (Novolog) 0 unit SUBCUT TIDAC [facility]; Protocol Last Admin: 03/29/20 12:07 Dose: Not Given Documented by: Insulin Aspart (Novolog) 10 unit SUBCUT ACBREAKFAST ONE Stop: 03/30/20 08:01 Last Admin: 03/29/20 08:20 Dose: 10 unit Documented by: Insulin Glargine (Lantus Solostar) 50 units SUBCUT BEDTIME [facility] Last Admin: 03/28/20 20:25 Dose: 50 units Documented by: Nitroglycerin (Nitrostat) 0.4 mg SL .EVERY 5 MINUTES PRN PRN Reason: Chest Pain Nystatin (Nystop) 0 gm TOP TID [facility] Last Admin: 03/29/20 07:11 Dose: 1 applic Documented by: Ondansetron HCl (Zofran Odt) 4 mg PO Q4H PRN PRN Reason: nausea, able to take PO Pantoprazole Sodium (Protonix) 40 mg PO DAILY [facility] Last Admin: 03/29/20 08:13 Dose: 40 mg Documented by: Sertraline HCl (Zoloft) 200 mg PO DAILY [facility] Last Admin: 03/29/20 08:13 Dose: 200 mg Documented by: Sodium Chloride (Saline Flush) 10 ml FLUSH ASDIRECTED PRN PRN Reason: Keep Vein Open Last Admin: 03/23/20 19:05 Dose: 10 ml Documented by: Sodium Chloride (Saline Flush) 2.5 ml FLUSH ASDIRECTED PRN PRN Reason: Keep Vein Open Last Admin: 03/23/20 19:05 Dose: 2.5 ml Documented by: Discontinued Medications Acetaminophen (Tylenol) 650 mg PO NOW ONE Stop: 03/23/20 17:51 Last Admin: 03/23/20 19:08 Dose: 650 mg Documented by: Dextrose/Water (Dextrose 50% In Water) 50 ml IV ASDIRECTED PRN PRN Reason: Hypoglycemia Dextrose/Water (Dextrose 50% In Water) 50 ml IV ASDIRECTED PRN PRN Reason: Hypoglycemia Dextrose/Water (Dextrose 50% In Water) 50 ml IVPUSH ASDIRECTED PRN PRN Reason: Hypoglycemia Dextrose/Water (Dextrose 50% In Water) 50 ml IVPUSH ASDIRECTED PRN PRN Reason: Hypoglycemia Enoxaparin Sodium (Lovenox) 40 mg SUBCUT Q24H [facility] Last Admin: 03/23/20 23:08 Dose: Not Given Documented by: Enoxaparin Sodium (Lovenox) 40 mg SUBCUT BEDTIME [facility] Last Admin: 03/25/20 20:36 Dose: 40 mg Documented by: Fentanyl (Fentanyl) 100 mcg IVPUSH ONETIME ONE Stop: 03/23/20 16:29 Last Admin: 03/23/20 19:06 Dose: Not Given Documented by: Furosemide (Lasix) 20 mg IVPUSH ONETIME ONE Stop: 03/26/20 11:02 Last Admin: 03/26/20 12:43 Dose: 20 mg Documented by: Glucagon (Glucagen) 1 mg IM ASDIRECTED PRN PRN Reason: Hypoglycemia Glucagon (Glucagen) 1 mg IM ASDIRECTED PRN PRN Reason: Hypoglycemia Glucagon (Glucagen) 1 mg IM ASDIRECTED PRN PRN Reason: Hypoglycemia Glucagon (Glucagen) 1 mg IM ASDIRECTED PRN PRN Reason: Hypoglycemia Sodium Chloride (Normal Saline) 1,000 mls @ 999 mls/hr IV STAT ONE Stop: 03/23/20 19:08 Last Admin: 03/23/20 19:08 Dose: 999 mls/hr Documented by: Insulin Aspart (Novolog) 0 unit SUBCUT TIDAC [facility]; Protocol Last Admin: 03/25/20 13:20 Dose: Not Given Documented by: Insulin Aspart (Novolog) 4 unit SUBCUT TIDAC [facility] Last Admin: 03/24/20 12:34 Dose: Not Given Documented by: Insulin Aspart (Novolog) 15 unit SUBCUT ONETIME ONE Stop: 03/24/20 12:04 Last Admin: 03/24/20 12:16 Dose: 15 units Documented by: [facility] Admin: 11/17/20 13:21 Dose: Not Given Documented by: Insulin Aspart (Novolog) 15 unit SUBCUT ONETIME ONE Stop: 03/24/20 20:45 Last Admin: 03/24/20 21:05 Dose: 15 unit Documented by: Insulin Aspart (Novolog) 20 unit SUBCUT ONETIME ONE Stop: 03/27/20 21:19 Insulin Aspart (Novolog) 0 unit SUBCUT [facility]; Protocol Insulin Aspart (Novolog) 20 unit SUBCUT ONETIME ONE Stop: 03/26/20 21:19 Last Admin: 03/26/20 21:35 Dose: 20 unit Documented by: Iopamidol (Isovue Multipack-370 (76%)) 100 ml IVPUSH ONETIME ONE Stop: 03/23/20 17:47 Last Admin: 03/23/20 17:46 Dose: 100 ml Documented by: Iopamidol (Isovue Multipack-370 (76%)) 100 ml IVPUSH ONETIME STA Stop: 03/27/20 12:52 Last Admin: 03/27/20 12:52 Dose: 100 ml Documented by: Iopamidol (Isovue Multipack-370 (76%)) 100 ml IVPUSH ONETIME STA Stop: 03/27/20 14:06 Last Admin: 03/27/20 21:46 Dose: Not Given Documented by: - Exam Quality Assessment: Supplemental Oxygen General: Alert Lungs: Clear to Auscultation, Normal Respiratory Effort Cardiovascular: Regular Rate, Regular Rhythm GI/Abdominal Exam: Normal Bowel Sounds, Soft, Non-Tender Psy/Mental Status: Alert, Normal Mood Sepsis Event Note - Evaluation Sepsis Screening Result: No Definite Risk - Focused Exam Vital Signs: Vital Signs Temp Pulse Pulse Resp BP BP BP 03/29/20 11:49 97.0 F 73 16 123/69 03/29/20 08:17 73 120/78 03/29/20 08:15 96.9 F 73 17 120/78 03/29/20 04:16 03/29/20 03:51 96.3 F L 76 20 121/60 Pulse Ox 03/29/20 11:49 89 L 03/29/20 08:17 03/29/20 08:15 92 L 03/29/20 04:16 92 L 03/29/20 03:51 - Problem List Review Problem List Initiated/Reviewed/Updated: Yes - My Orders Last 24 Hours: My Active Orders 03/29/20 07:54 Dextrose 50% in Water 50 ml IV ASDIRECTED PRN Glucagon,Human Recombinant [GlucaGen] 1 mg IM ASDIRECTED PRN 03/30/20 08:00 Insulin Aspart [NovoLOG] 10 unit SUBCUT ACBREAKFAST ONE - Plan Plan:: Syncope Continues to be orthostatic. Dizziness with position change. Continue Coreg Monitor on telemetry, no arrhythmias COVID-19 infection Oxygen needs continue at 5L today. Continue dexamethasone 6 mg p.o. daily Oxygen therapy to keep sats greater than 92%, wean as possible Encouraged proning or at least left lateral decubitus position. IS and flutter Combivent inhaler every 4 hours as needed dyspnea Lovenox 40 mg subcut twice daily Continue guaifenesin with codeine as needed cough along with Tessandy Rich CAD/hypertension/CVA/Carotid stenosis Daily weights strict I's and O's Continue carvedilol 12.5 mg twice daily Hold amlodipine and lisinopril for now. Continue aspirin and Plavix Continue statin and Zetia Dm Type 2 Patient regularly gets NovoLog 20 units with each meal, plus SSI. This moring Patient given 10 units due to blood sugar of 104. Resume 20 units with further meals based on glucose levels AC MEALS Lantus 50 units subcutaneously in the evening
[2020-03-29] MEDS: Levofloxacin/Dextrose 5%-Water 750 MG in Premix Bag 1 BAG IV SCH (20:22)
[2020-03-29] MEDS: atorvaSTATin 40 MG Tab PO SCH (20:28)
[2020-03-29] MEDS: Insulin Glargine,Human Rec. Analog 100 Units/ML 3 ML Pen SUBCUT SCH (20:34)
[2020-03-30] MEDS: Benzonatate 100 MG Cap PO PRN ×2 (02:51→09:41)
[2020-03-30 06:58] LABS: BLOOD UREA NITROGEN,BUN 25 mg/dL (7.0-18.0); CARBON DIOXIDE,CO2 30.1 mmol/L (21.0-32.0); CHLORIDE,CL 102 mmol/L (98-107); GLUCOSE RANDOM 99 mg/dL (74-106); POTASSIUM,K 4.3 mmol/L (3.5-5.1); SODIUM,NA 138 mmol/L (136-145)
[2020-03-30] MEDS: Albuterol/Ipratropium 4 GM Inhalation Spray INH SCH ×2 (07:03→12:25)
[2020-03-30] MEDS: Nystatin Topical Powder 15 GM Bottle TOP SCH ×3 (07:04→23:40)
[2020-03-30] MEDS: Insulin Aspart 100 Units/ML 3 ML Pen SUBCUT SCH ×6 (07:17→17:34)
[2020-03-30] MEDS: Insulin Aspart 100 Units/ML 3 ML Pen SUBCUT ONE (08:14)
[2020-03-30] MEDS: Fluticasone Propionate 110 MCG/Puff 12 GM Inhaler INH SCH ×2 (08:18→22:22)
--- NOTE | 2020-03-30 09:28 | PCM.PN ---
- General Info Date of Service: 03/30/20 - Review of Systems Systems Review Comment:: patient felt faint while standing on scale today layed back in bed and passed out briefly, symptoms did not linger long, blood pressure stable, was noted to be hypoxic in the 70s so was placed on 10 L NC and now satting 90% - Patient Data Vitals - Most Recent: Last Vital Signs Temp 36.0 C L 03/30/20 08:05 Pulse 73 03/30/20 08:05 Resp 18 03/30/20 08:05 BP 108/62 03/30/20 08:05 Pulse Ox 90 L 03/30/20 08:18 Orthostatic Blood Pressure [ 102/46 Standing] Orthostatic Blood Pressure [ 100/62 Sitting] Orthostatic Blood Pressure [ 121/65 Supine] Weight - Most Recent: 133.1 kg I&O - Last 24 Hours: Intake & Output 03/29/20 03/30/20 03/30/20 22:59 06:59 14:59 Intake Total 1122 520 Output Total 1400 1250 Balance -278 -730 Lab Results Last 24 Hours: Laboratory Results - last 24 hr 03/29/20 03/29/20 03/30/20 Range/Units 12:00 16:53 06:20 WBC 9.02 (4.0-11.0) K/uL RBC 4.53 (4.30-5.90) M/uL Hgb 12.1 (12.0-16.0) g/dL Hct 37.0 (36.0-46.0) % MCV 81.7 (80.0-98.0) fL MCH 26.7 L (27.0-32.0) pg MCHC 32.7 (31.0-37.0) g/dL RDW Std Deviation 39.5 (28.0-62.0) fl RDW Coeff of Speedy 13 (11.0-15.0) % Plt Count 113 L (150-400) K/uL MPV 10.20 (7.40-12.00) fL Neut % (Auto) 91.4 H (48.0-80.0) % Lymph % (Auto) 4.9 L (16.0-40.0) % [place] % (Auto) 3.4 (0.0-15.0) % Eos % (Auto) 0.3 (0.0-7.0) % Baso % (Auto) 0.0 (0.0-1.5) % Neut # (Auto) 8.2 H (1.4-5.7) K/uL Lymph # (Auto) 0.4 L (0.6-2.4) K/uL [place] # (Auto) 0.3 (0.0-0.8) K/uL Eos # (Auto) 0.0 (0.0-0.7) K/uL Baso # (Auto) 0.0 (0.0-0.1) K/uL Nucleated RBC % 0.0 /100WBC Nucleated RBCs # 0 K/uL Sodium (136-145) mmol/L Potassium (3.5-5.1) mmol/L Chloride (98-107) mmol/L Carbon Dioxide (21.0-32.0) mmol/L BUN (7.0-18.0) mg/dL Creatinine (0.6-1.0) mg/dL Est Cr Clr Drug Dosing mL/min Estimated GFR (MDRD) ml/min Glucose (74-106) mg/dL POC Glucose 118 H 184 H (60-110) mg/dL Calcium (8.5-10.1) mg/dL Magnesium (1.8-2.4) mg/dL Total Bilirubin (0.2-1.0) mg/dL AST (15-37) IU/L ALT (14-63) IU/L Alkaline Phosphatase (46-116) U/L Total Protein (6.4-8.2) g/dL Albumin (3.4-5.0) g/dL Globulin (2.6-4.0) g/dL Albumin/Globulin Ratio (0.9-1.6) 03/30/20 03/30/20 Range/Units 06:20 07:02 WBC (4.0-11.0) K/uL RBC (4.30-5.90) M/uL Hgb (12.0-16.0) g/dL Hct (36.0-46.0) % MCV (80.0-98.0) fL MCH (27.0-32.0) pg MCHC (31.0-37.0) g/dL RDW Std Deviation (28.0-62.0) fl RDW Coeff of Speedy (11.0-15.0) % Plt Count (150-400) K/uL MPV (7.40-12.00) fL Neut % (Auto) (48.0-80.0) % Lymph % (Auto) (16.0-40.0) % [place] % (Auto) (0.0-15.0) % Eos % (Auto) (0.0-7.0) % Baso % (Auto) (0.0-1.5) % Neut # (Auto) (1.4-5.7) K/uL Lymph # (Auto) (0.6-2.4) K/uL [place] # (Auto) (0.0-0.8) K/uL Eos # (Auto) (0.0-0.7) K/uL Baso # (Auto) (0.0-0.1) K/uL Nucleated RBC % /100WBC Nucleated RBCs # K/uL Sodium 138 (136-145) mmol/L Potassium 4.3 (3.5-5.1) mmol/L Chloride 102 (98-107) mmol/L Carbon Dioxide 30.1 (21.0-32.0) mmol/L BUN 25 H (7.0-18.0) mg/dL Creatinine 0.8 (0.6-1.0) mg/dL Est Cr Clr Drug Dosing 87.70 mL/min Estimated GFR (MDRD) > 60.0 ml/min Glucose 99 (74-106) mg/dL POC Glucose 111 H (60-110) mg/dL Calcium 8.8 (8.5-10.1) mg/dL Magnesium 2.0 (1.8-2.4) mg/dL Total Bilirubin 0.4 (0.2-1.0) mg/dL AST 15 (15-37) IU/L ALT 23 (14-63) IU/L Alkaline Phosphatase 85 (46-116) U/L Total Protein 6.7 (6.4-8.2) g/dL Albumin 2.5 L (3.4-5.0) g/dL Globulin 4.2 H (2.6-4.0) g/dL Albumin/Globulin Ratio 0.6 L (0.9-1.6) Med Orders - Current: Current Medications Acetaminophen (Tylenol) 650 mg PO Q4H PRN PRN Reason: Pain Last Admin: 03/29/20 12:00 Dose: 650 mg Documented by: Albuterol/Ipratropium (Duoneb 3.0-0.5 Mg/3 Ml) 3 ml NEB Q4HRRT PRN PRN Reason: Shortness Of Breath/wheezing Albuterol/Ipratropium (Combivent Respimat) [address] [facility] Last Admin: 03/30/20 07:03 Dose: 1 inhalation Documented by: Aspirin (Aspirin) [address] [facility] Last Admin: 03/29/20 08:13 Dose: 81 mg Documented by: Atorvastatin Calcium (Lipitor) [address] [facility] Last Admin: 03/29/20 20:28 Dose: 80 mg Documented by: Benzonatate (Tessalon Perles) 200 mg PO TID PRN PRN Reason: Cough Last Admin: 03/30/20 02:51 Dose: 200 mg Documented by: Carvedilol (Coreg) 12.[address] [facility] Last Admin: 03/29/20 20:24 Dose: 12.5 mg Documented by: Clopidogrel Bisulfate (Plavix) [address] [facility] Last Admin: 03/29/20 08:12 Dose: 75 mg Documented by: Dexamethasone (Dexamethasone) [address] [facility] Last Admin: 03/29/20 08:12 Dose: 6 mg Documented by: Dextrose/Water (Dextrose 50% In Water) 50 ml IVPUSH ASDIRECTED PRN PRN Reason: Hypoglycemia Dextrose/Water (Dextrose 50% In Water) 50 ml IV ASDIRECTED PRN PRN Reason: Hypoglycemia Enoxaparin Sodium (Lovenox) [address] [facility] Last Admin: 03/29/20 20:36 Dose: 40 mg Documented by: Fluticasone Propionate (Flovent Hfa 110 Mcg) [address] [facility] Last Admin: 03/30/20 08:18 Dose: 2 puff Documented by: Glucagon (Glucagen) 1 mg IM ASDIRECTED PRN PRN Reason: Hypoglycemia Glucagon (Glucagen) 1 mg IM ASDIRECTED PRN PRN Reason: Hypoglycemia Levofloxacin/Dextrose 750 mg/ (Premix) 150 mls @ 100 mls/hr IV Q24H [facility] Last Admin: 03/29/20 20:22 Dose: 100 mls/hr Documented by: Insulin Aspart (Novolog) [address] [facility] Last Admin: 03/30/20 08:13 Dose: 20 unit Documented by: Insulin Aspart (Novolog) [address] [facility]; Protocol Last Admin: 03/30/20 07:17 Dose: Not Given Documented by: Insulin Glargine (Lantus Solostar) [address] [facility] Last Admin: 03/29/20 20:34 Dose: 50 units Documented by: Nitroglycerin (Nitrostat) 0.4 mg SL .EVERY 5 MINUTES PRN PRN Reason: Chest Pain Nystatin (Nystop) [address] [facility] Last Admin: 03/30/20 07:04 Dose: Not Given Documented by: Ondansetron HCl (Zofran Odt) 4 mg PO Q4H PRN PRN Reason: nausea, able to take PO Pantoprazole Sodium (Protonix) [address] [facility] Last Admin: 03/29/20 08:13 Dose: 40 mg Documented by: Sertraline HCl (Zoloft) [address] [facility] Last Admin: 03/29/20 08:13 Dose: 200 mg Documented by: Sodium Chloride (Saline Flush) 10 ml FLUSH ASDIRECTED PRN PRN Reason: Keep Vein Open Last Admin: 03/23/20 19:05 Dose: 10 ml Documented by: Sodium Chloride (Saline Flush) 2.5 ml FLUSH ASDIRECTED PRN PRN Reason: Keep Vein Open Last Admin: 03/23/20 19:05 Dose: 2.5 ml Documented by: Discontinued Medications Acetaminophen (Tylenol) 650 mg PO NOW ONE Stop: 03/23/20 17:51 Last Admin: 03/23/20 19:08 Dose: 650 mg Documented by: Dextrose/Water (Dextrose 50% In Water) 50 ml IV ASDIRECTED PRN PRN Reason: Hypoglycemia Dextrose/Water (Dextrose 50% In Water) 50 ml IV ASDIRECTED PRN PRN Reason: Hypoglycemia Dextrose/Water (Dextrose 50% In Water) 50 ml IVPUSH ASDIRECTED PRN PRN Reason: Hypoglycemia Dextrose/Water (Dextrose 50% In Water) 50 ml IVPUSH ASDIRECTED PRN PRN Reason: Hypoglycemia Enoxaparin Sodium (Lovenox) [address] [facility] Last Admin: 03/23/20 23:08 Dose: Not Given Documented by: Enoxaparin Sodium (Lovenox) 40 mg SUBCUT BEDTIME [facility] Last Admin: 03/25/20 20:36 Dose: 40 mg Documented by: Fentanyl (Fentanyl) 100 mcg IVPUSH ONETIME ONE Stop: 03/23/20 16:29 Last Admin: 03/23/20 19:06 Dose: Not Given Documented by: Furosemide (Lasix) 20 mg IVPUSH ONETIME ONE Stop: 03/26/20 11:02 Last Admin: 03/26/20 12:43 Dose: 20 mg Documented by: Glucagon (Glucagen) 1 mg IM ASDIRECTED PRN PRN Reason: Hypoglycemia Glucagon (Glucagen) 1 mg IM ASDIRECTED PRN PRN Reason: Hypoglycemia Glucagon (Glucagen) 1 mg IM ASDIRECTED PRN PRN Reason: Hypoglycemia Glucagon (Glucagen) 1 mg IM ASDIRECTED PRN PRN Reason: Hypoglycemia Sodium Chloride (Normal Saline) 1,000 mls @ 999 mls/hr IV STAT ONE Stop: 03/23/20 19:08 Last Admin: 03/23/20 19:08 Dose: 999 mls/hr Documented by: Insulin Aspart (Novolog) 0 unit SUBCUT [facility]; Protocol Last Admin: 03/25/20 13:20 Dose: Not Given Documented by: [facility]) [facility] Last Admin: 03/24/20 12:34 Dose: Not Given Documented by: Insulin Aspart (Novolog) 15 unit SUBCUT ONETIME ONE Stop: 03/24/20 12:04 Last Admin: 03/24/20 12:16 Dose: 15 units Documented by: Insulin Aspart (Novolog) [facility] Last Admin: 03/25/20 13:21 Dose: Not Given Documented by: Insulin Aspart (Novolog) 15 unit SUBCUT ONETIME ONE Stop: 03/24/20 20:45 Last Admin: 03/24/20 21:05 Dose: 15 unit Documented by: Insulin Aspart (Novolog) 20 unit SUBCUT ONETIME ONE Stop: 03/27/20 21:19 [facility] ([facility]olog[facility]; Protocol Insulin Aspart (Novolog) 20 unit SUBCUT ONETIME ONE Stop: 03/26/20 21:19 Last Admin: 03/26/20 21:35 Dose: 20 unit Documented by: Insulin Aspart (Novolog) 10 unit SUBCUT ACBREAKFAST ONE Stop: 03/30/20 08:01 Last Admin: 03/30/20 08:14 Dose: Not Given Documented by: Iopamidol (Isovue Multipack-370 (76%)) 100 ml IVPUSH ONETIME ONE Stop: 03/23/20 17:47 Last Admin: 03/23/20 17:46 Dose: 100 ml Documented by: Iopamidol (Isovue Multipack-370 (76%)) 100 ml IVPUSH ONETIME STA Stop: 03/27/20 12:52 Last Admin: 03/27/20 12:52 Dose: 100 ml Documented by: Iopamidol (Isovue Multipack-370 (76%)) 100 ml IVPUSH ONETIME STA Stop: 03/27/20 14:06 Last Admin: 03/27/20 21:46 Dose: Not Given Documented by: - Exam General: Alert, Oriented Neck: Supple Lungs: Clear to Auscultation, Normal Respiratory Effort Cardiovascular: Regular Rate, Regular Rhythm GI/Abdominal Exam: Soft, Non-Tender, No Distention Extremities: Non-Tender, No Pedal Edema Skin: Warm, Dry, Intact Neurological: No New Focal Deficit Sepsis Event Note - Evaluation Sepsis Screening Result: No Definite Risk - Focused Exam Vital Signs: Vital Signs Temp Pulse Resp BP BP Pulse Ox 03/30/20 08:18 90 L 03/30/20 08:05 36.0 C L 73 18 108/62 03/30/20 04:00 36.5 C 68 18 128/65 95 03/30/20 00:00 36.7 C 72 19 125/64 96 03/29/20 22:00 36.7 C 72 18 122/65 91 L - Problem List Review Problem List Initiated/Reviewed/Updated: Yes - Plan Plan:: Syncope Continues to be orthostatic. Dizziness with position change. Hypoxia from covid may be worsening symptoms Continue Coreg Monitor on telemetry, no arrhythmias COVID-19 infection continue NC O2 Continue dexamethasone 6 mg p.o. daily Oxygen therapy to keep sats greater than 92%, wean as possible Encouraged proning or at least left lateral decubitus position. IS and flutter Combivent inhaler every 4 hours as needed dyspnea Lovenox 40 mg subcut twice daily Continue guaifenesin with codeine as needed cough along with Mary Rich CAD/hypertension/CVA/Carotid stenosis Daily weights strict I's and O's Continue carvedilol 12.5 mg twice daily Hold amlodipine and lisinopril for now. Continue aspirin and Plavix Continue statin and Zetia
[2020-03-30] MEDS: Aspirin 81 MG Tab.Chew PO SCH (09:35)
[2020-03-30] MEDS: Sertraline 100 MG Tab PO SCH (09:35)
[2020-03-30] MEDS: Clopidogrel 75 MG Tab PO SCH (09:36)
[2020-03-30] MEDS: Dexamethasone 4 MG Tab PO SCH (09:36)
[2020-03-30] MEDS: Carvedilol 12.5 MG Tab PO SCH ×2 (09:37→22:17)
[2020-03-30] MEDS: Pantoprazole 40 MG Tab.CR PO SCH (09:38)
[2020-03-30] MEDS: Enoxaparin 40 MG/0.4 ML Syringe SUBCUT SCH ×2 (09:38→22:17)
[2020-03-30] MEDS: Acetaminophen 325 MG Tab PO PRN ×3 (09:41→22:16)
--- NOTE | 2020-03-30 14:45 | CR ---
INDICATION: Hypoxia TECHNIQUE: Single view chest. Prior chest x-ray could not be retrieved at the time of interpretation. 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 Diffuse ground-glass opacities without significant change. Dictated by Nallely Villagomez MD @ Mar 30 2020 2:42PM Signed by Dr. Nallely Villagomez @ Mar 30 2020 2:45PM
[2020-03-30] MEDS: Albuterol/Ipratropium 4 GM Inhalation Spray INH PRN ×2 (17:33→22:22)
[2020-03-30] MEDS: Levofloxacin/Dextrose 5%-Water 750 MG in Premix Bag 1 BAG IV SCH (20:00)
[2020-03-30] MEDS: atorvaSTATin 40 MG Tab PO SCH (22:17)
[2020-03-30] MEDS: Insulin Glargine,Human Rec. Analog 100 Units/ML 3 ML Pen SUBCUT SCH (22:19)
[2020-03-31] MEDS: Acetaminophen 325 MG Tab PO PRN ×3 (06:23→22:10)
[2020-03-31] MEDS: Benzonatate 100 MG Cap PO PRN ×2 (06:23→22:10)
[2020-03-31] MEDS: Fluticasone Propionate 110 MCG/Puff 12 GM Inhaler INH SCH ×3 (06:25→20:47)
[2020-03-31] MEDS: Albuterol/Ipratropium 4 GM Inhalation Spray INH PRN (06:25)
[2020-03-31] MEDS: Nystatin Topical Powder 15 GM Bottle TOP SCH ×3 (06:51→22:11)
--- NOTE | 2020-03-31 08:16 | PCM.PN ---
- General Info Date of Service: 03/31/20 Admission Dx/Problem (Free Text): Admission Diagnosis/Problem Admission Diagnosis/Problem Syncope due to orthostatic hypotension Subjective Update: Doing ok this morning, dyspnea continues intermittently. Lays on left side samantha quently, unable to tolerate prone. No chest pain and no further syncopal episodes. Functional Status: Reports: Pain Controlled, Tolerating Diet - Review of Systems General: Reports: Fatigue, Malaise Pulmonary: Reports: Shortness of Breath, Cough. Denies: Sputum Cardiovascular: Reports: Dyspnea on Exertion, Lightheadedness. Denies: Chest Pain, Edema Gastrointestinal: Reports: No Symptoms. Denies: Abdominal Pain, Nausea, Vomiting Genitourinary: Reports: No Symptoms. Denies: Dysuria, Frequency Musculoskeletal: Reports: No Symptoms Skin: Reports: No Symptoms Neurological: Reports: No Symptoms Psychiatric: Reports: No Symptoms - Patient Data Vitals - Most Recent: Last Vital Signs Temp 96.6 F L 03/31/20 03:54 Pulse 70 03/31/20 03:54 Resp 20 03/31/20 03:54 BP 115/64 03/31/20 03:54 Pulse Ox 93 L 03/31/20 03:54 Orthostatic Blood Pressure [ 102/46 Standing] Orthostatic Blood Pressure [ 100/62 Sitting] Orthostatic Blood Pressure [ 121/65 Supine] Weight - Most Recent: 134.9 kg I&O - Last 24 Hours: Intake & Output 03/30/20 03/31/20 03/31/20 22:59 06:59 14:59 Intake Total 1244 730 Output Total 650 Balance 594 730 Lab Results Last 24 Hours: Laboratory Results - last 24 hr 03/30/20 03/30/20 03/31/20 Range/Units 11:54 16:19 06:29 POC Glucose 139 H 201 H 268 H (60-110) mg/dL Med Orders - Current: Current Medications Acetaminophen (Tylenol) 650 mg PO Q4H PRN PRN Reason: Pain Last Admin: 03/31/20 06:23 Dose: 650 mg Documented by: Albuterol/Ipratropium (Duoneb 3.0-0.5 Mg/3 Ml) 3 ml NEB Q4HRRT PRN PRN Reason: Shortness Of Breath/wheezing Albuterol/Ipratropium (Combivent Respimat) 0 gm INH Q4HRRT PRN PRN Reason: Shortness of Breath Last Admin: 03/31/20 06:25 Dose: 1 puff Documented by: Aspirin (Aspirin) 81 mg PO DAILY [facility] Last Admin: 03/30/20 09:35 Dose: 81 mg Documented by: Atorvastatin Calcium (Lipitor) 80 mg PO BEDTIME [facility] Last Admin: 03/30/20 22:17 Dose: 80 mg Documented by: Benzonatate (Tessalon Perles) 200 mg PO TID PRN PRN Reason: Cough Last Admin: 03/31/20 06:23 Dose: 200 mg Documented by: Carvedilol (Coreg) 12.5 mg PO BID [facility] Last Admin: 03/30/20 22:17 Dose: 12.5 mg Documented by: Clopidogrel Bisulfate (Plavix) 75 mg PO DAILY [facility] Last Admin: 03/30/20 09:36 Dose: 75 mg Documented by: Dexamethasone (Dexamethasone) 6 mg PO DAILY [facility] Stop: 04/01/20 09:01 Last Admin: 03/30/20 09:36 Dose: 6 mg Documented by: Dextrose/Water (Dextrose 50% In Water) 50 ml IVPUSH ASDIRECTED PRN PRN Reason: Hypoglycemia Enoxaparin Sodium (Lovenox) 40 mg SUBCUT BID [facility] Last Admin: 03/30/20 22:17 Dose: 40 mg Documented by: Fluticasone Propionate (Flovent Hfa 110 Mcg) 0 gm INH BID [facility] Last Admin: 03/31/20 06:25 Dose: 2 puff Documented by: Glucagon (Glucagen) 1 mg IM ASDIRECTED PRN PRN Reason: Hypoglycemia Levofloxacin/Dextrose 750 mg/ (Premix) 150 mls @ 100 mls/hr IV Q24H [facility] Last Admin: 03/30/20 20:00 Dose: 100 mls/hr Documented by: Insulin Aspart (Novolog) 20 unit SUBCUT TIDAC [facility] Last Admin: 03/30/20 17:34 Dose: 20 unit Documented by: Insulin Aspart (Novolog) 0 unit SUBCUT [facility]ID[facility]; Protocol Last Admin: 03/30/20 17:34 Dose: 4 unit Documented by: Insulin Glargine (Lantus Solostar) 50 units SUBCUT BEDTIME [facility] Last Admin: 03/30/20 22:19 Dose: 50 units Documented by: Nitroglycerin (Nitrostat) 0.4 mg SL .EVERY 5 MINUTES PRN PRN Reason: Chest Pain Nystatin (Nystop) 0 gm TOP TID [facility] Last Admin: 03/31/20 06:51 Dose: Not Given Documented by: Ondansetron HCl (Zofran Odt) 4 mg PO Q4H PRN PRN Reason: nausea, able to take PO Pantoprazole Sodium (Protonix) 40 mg PO DAILY [facility] Last Admin: 03/30/20 09:38 Dose: 40 mg Documented by: Sertraline HCl (Zoloft) 200 mg PO DAILY [facility] Last Admin: 03/30/20 09:35 Dose: 200 mg Documented by: Sodium Chloride (Saline Flush) 10 ml FLUSH ASDIRECTED PRN PRN Reason: Keep Vein Open Last Admin: 03/23/20 19:05 Dose: 10 ml Documented by: Sodium Chloride (Saline Flush) 2.5 ml FLUSH ASDIRECTED PRN PRN Reason: Keep Vein Open Last Admin: 03/23/20 19:05 Dose: 2.5 ml Documented by: Discontinued Medications Acetaminophen (Tylenol) 650 mg PO NOW ONE Stop: 03/23/20 17:51 Last Admin: 03/23/20 19:08 Dose: 650 mg Documented by: Albuterol/Ipratropium (Combivent Respimat) 0 gm INH QID [facility] Last Admin: 03/30/20 12:25 Dose: 1 inhalation Documented by: Dextrose/Water (Dextrose 50% In Water) 50 ml IV ASDIRECTED PRN PRN Reason: Hypoglycemia Dextrose/Water (Dextrose 50% In Water) 50 ml IV ASDIRECTED PRN PRN Reason: Hypoglycemia Dextrose/Water (Dextrose 50% In Water) 50 ml IVPUSH ASDIRECTED PRN PRN Reason: Hypoglycemia Dextrose/Water (Dextrose 50% In Water) 50 ml IVPUSH ASDIRECTED PRN PRN Reason: Hypoglycemia Dextrose/Water (Dextrose 50% In Water) 50 ml IV ASDIRECTED PRN PRN Reason: Hypoglycemia Enoxaparin Sodium (Lovenox) 40 mg SUBCUT Q24H [facility] Last Admin: 03/23/20 23:08 Dose: Not Given Documented by: Enoxaparin Sodium (Lovenox) 40 mg SUBCUT BEDTIME [facility] Last Admin: 03/25/20 20:36 Dose: 40 mg Documented by: Fentanyl (Fentanyl) 100 mcg IVPUSH ONETIME ONE Stop: 03/23/20 16:29 Last Admin: 03/23/20 19:06 Dose: Not Given Documented by: Furosemide (Lasix) 20 mg IVPUSH ONETIME ONE Stop: 03/26/20 11:02 Last Admin: 03/26/20 12:43 Dose: 20 mg Documented by: Glucagon (Glucagen) 1 mg IM ASDIRECTED PRN PRN Reason: Hypoglycemia Glucagon (Glucagen) 1 mg IM ASDIRECTED PRN PRN Reason: Hypoglycemia Glucagon (Glucagen) 1 mg IM ASDIRECTED PRN PRN Reason: Hypoglycemia Glucagon (Glucagen) 1 mg IM ASDIRECTED PRN PRN Reason: Hypoglycemia Glucagon (Glucagen) 1 mg IM ASDIRECTED PRN PRN Reason: Hypoglycemia Sodium Chloride (Normal Saline) 1,000 mls @ 999 mls/hr IV STAT ONE Stop: 03/23/20 19:08 Last Admin: 03/23/20 19:08 Dose: 999 mls/hr Documented by: Insulin Asp[facility] ([facility]) [facility]; Protocol Last Admin: 03/25/20 13:20 Dose: Not Given Documented by: Insulin Aspart (Novolog) [facility] Last Admin: 03/24/20 12:34 Dose: Not Given Documented by: Insulin Aspart (Novolog) 15 unit SUBCUT ONETIME ONE Stop: 03/24/20 12:04 Last Admin: 03/24/20 12:16 Dose: 15 units Documented by: Insulin Aspart (Novolog) [facility] Last Admin: 03/25/20 13:21 Dose: Not Given Documented by: Insulin Aspart (Novolog) 15 unit SUBCUT ONETIME ONE Stop: 03/24/20 20:45 Last Admin: 03/24/20 21:05 Dose: 15 unit Documented by: Insulin Aspart (Novolog) 20 unit SUBCUT ONETIME ONE Stop: 03/27/20 21:19 Insulin Aspart (Novolog) 0 unit SUBCUT TIDAC [facility]; Protocol Insulin Aspart (Novolog) 20 unit SUBCUT ONETIME ONE Stop: 03/26/20 21:19 Last Admin: 03/26/20 21:35 Dose: 20 unit Documented by: Insulin Aspart (Novolog) 10 unit SUBCUT [facility] ONE Stop: 03/30/20 08:01 Last Admin: 03/30/20 08:14 Dose: Not Given Documented by: Iopamidol (Isovue Multipack-370 (76%)) 100 ml IVPUSH ONETIME ONE Stop: 03/23/20 17:47 Last Admin: 03/23/20 17:46 Dose: 100 ml Documented by: Iopamidol (Isovue Multipack-370 (76%)) 100 ml IVPUSH ONETIME STA Stop: 03/27/20 12:52 Last Admin: 03/27/20 12:52 Dose: 100 ml Documented by: Iopamidol (Isovue Multipack-370 (76%)) 100 ml IVPUSH ONETIME STA Stop: 03/27/20 14:06 Last Admin: 03/27/20 21:46 Dose: Not Given Documented by: - Exam General: Alert, Oriented, Cooperative, No Acute Distress HEENT: Pupils Equal, Pupils Reactive Neck: Supple Lungs: Decreased Breath Sounds. No: Normal Respiratory Effort Cardiovascular: Regular Rate, Regular Rhythm GI/Abdominal Exam: Normal Bowel Sounds, Soft, Non-Tender Back Exam: Normal Inspection, Full Range of Motion Extremities: Normal Inspection, Normal Range of Motion, Non-Tender, No Pedal Edema Neurological: No New Focal Deficit, Cranial Nerves Intact Psy/Mental Status: Alert, Normal Affect Sepsis Event Note - Evaluation Sepsis Screening Result: No Definite Risk - Focused Exam Vital Signs: Vital Signs Temp Pulse Pulse Resp BP BP BP 03/31/20 03:54 96.6 F L 70 20 115/64 03/31/20 00:21 69 20 03/30/20 22:23 96.4 F L 71 18 145/88 H 03/30/20 22:17 71 145/88 H Pulse Ox 03/31/20 03:54 93 L 03/31/20 00:21 97 03/30/20 22:23 96 03/30/20 22:17 - Problem List & Annotations (1) CORNELIA (acute kidney injury) SNOMED Code(s): 99096129, 43651186 Code(s): N17.9 - ACUTE KIDNEY FAILURE, UNSPECIFIED Status: Resolved Current Visit: Yes (2) COVID-19 SNOMED Code(s): 323521575 Code(s): U07.1 - COVID-19 Status: Acute Current Visit: Yes (3) Chest pain, rule out acute myocardial infarction SNOMED Code(s): 53704060 Code(s): R07.9 - CHEST PAIN, UNSPECIFIED Status: Resolved Current Visit: Yes (4) Orthostatic hypotension SNOMED Code(s): 55119532 Code(s): I95.1 - ORTHOSTATIC HYPOTENSION Status: Acute Current Visit: Yes (5) Syncope SNOMED Code(s): 511108256 Code(s): R55 - SYNCOPE AND COLLAPSE Status: Acute Current Visit: Yes Qualifiers: Syncope type: unspecified Qualified Code(s): R55 - Syncope and collapse (6) (HFpEF) heart failure with preserved ejection fraction SNOMED Code(s): 812812045 Code(s): I50.30 - UNSPECIFIED DIASTOLIC (CONGESTIVE) HEART FAILURE Status: Acute Current Visit: No Qualifiers: Heart failure chronicity: acute on chronic Qualified Code(s): I50.33 - Acute on chronic diastolic (congestive) heart failure (7) Acute respiratory failure with hypoxia SNOMED Code(s): 22523047, 393003219 Code(s): J96.01 - ACUTE RESPIRATORY FAILURE WITH HYPOXIA Status: Acute Current Visit: No (8) DM type 2 (diabetes mellitus, type 2) SNOMED Code(s): 62578453 Code(s): E11.9 - TYPE 2 DIABETES MELLITUS WITHOUT COMPLICATIONS Status: Chronic Current Visit: No Qualifiers: Diabetes mellitus jail insulin use: with jail use Diabetes mellitus complication status: with hyperglycemia Qualified Code(s): E11.65 - Type 2 diabetes mellitus with hyperglycemia; Z79.4 - manager long term care (current) use of insulin (9) HLD (hyperlipidemia) SNOMED Code(s): 66358821 Code(s): E78.5 - HYPERLIPIDEMIA, UNSPECIFIED Status: Chronic Current Visit: No (10) HTN (hypertension) SNOMED Code(s): 23836858 Code(s): I10 - ESSENTIAL (PRIMARY) HYPERTENSION Status: Chronic Current Visit: No (11) Obesity SNOMED Code(s): 714444863, 506679091 Code(s): E66.9 - OBESITY, UNSPECIFIED Status: Chronic Current Visit: No Qualifiers: Serious obesity comorbidity presence: with serious comorbidity (12) History of CVA (cerebrovascular accident) SNOMED Code(s): 559246632 Code(s): Z86.73 - PRSNL HX OF TIA (TIA), AND CEREB INFRC W/O RESID DEFICITS Status: Acute Current Visit: Yes - Problem List Review Problem List Initiated/Reviewed/Updated: Yes - Plan Plan:: This 49-year-old female admitted with multiple syncopal episodes at home with weakness shortness of breath 1. COVID-19 pneumonia with acute hypoxic respiratory failure - Continues to have dizziness and hypoxia with movement. needing increased oxygen demands with walking to bathroom. - Mild improvement - Oxygen needs continue at 5 to 6 L today. - Continue dexamethasone 6 mg p.o. daily today is day 8, will continue for 10 days total. - Oxygen therapy to keep sats greater than 92%, wean as possible - Encouraged proning or at least left lateral decubitus position. - IS and flutter - Combivent inhaler every 4 hours as needed dyspnea - Lovenox 40 mg subcut twice daily - Monitor liver function daily - Guaifenesin with codeine as needed cough along with Tessalon Perles 2. HFpEF/CAD/hypertension/CVA/Carotid stenosis - Daily weights strict I's and O's - Restart Lasxi 40 mg PO today. - Continue carvedilol 12.5 mg twice daily - Holding amlodipine and lisinopril due to orthostatic hypotension - Continue aspirin and Plavix - Continue statin and Zetia 3. Dm Type 2 - Blood sugars continue to be well controlled - NovoLog 20 units with each meal, plus SSI - Lantus 50 units subcutaneously in the evening VTE prophylaxis: Lovenox twice daily CODE STATUS: FULL CODE Dispo: 2 to 3 days pending improvement.
[2020-03-31] MEDS: Insulin Aspart 100 Units/ML 3 ML Pen SUBCUT SCH ×6 (08:32→18:40)
[2020-03-31] MEDS: Pantoprazole 40 MG Tab.CR PO SCH (08:35)
[2020-03-31] MEDS: Sertraline 100 MG Tab PO SCH (08:45)
[2020-03-31] MEDS: Carvedilol 12.5 MG Tab PO SCH ×2 (08:46→20:47)
[2020-03-31] MEDS: Clopidogrel 75 MG Tab PO SCH (08:46)
[2020-03-31] MEDS: Aspirin 81 MG Tab.Chew PO SCH (08:47)
[2020-03-31] MEDS: Dexamethasone 4 MG Tab PO SCH (08:47)
[2020-03-31] MEDS: Enoxaparin 40 MG/0.4 ML Syringe SUBCUT SCH ×2 (08:48→20:48)
[2020-03-31] MEDS: Furosemide 40 MG Tab PO SCH (12:39)
[2020-03-31] MEDS: atorvaSTATin 40 MG Tab PO SCH (20:47)
[2020-03-31] MEDS: Insulin Glargine,Human Rec. Analog 100 Units/ML 3 ML Pen SUBCUT SCH (20:48)
[2020-04-01] MEDS: Nystatin Topical Powder 15 GM Bottle TOP SCH ×3 (06:44→21:11)
[2020-04-01 06:59] LABS: BLOOD UREA NITROGEN,BUN 25 mg/dL (7.0-18.0); CARBON DIOXIDE,CO2 32.7 mmol/L (21.0-32.0); CHLORIDE,CL 101 mmol/L (98-107); GLUCOSE RANDOM 121 mg/dL (74-106); POTASSIUM,K 4.4 mmol/L (3.5-5.1); SODIUM,NA 138 mmol/L (136-145)
--- NOTE | 2020-04-01 08:14 | PCM.PN ---
- General Info Date of Service: 04/01/20 Admission Dx/Problem (Free Text): Admission Diagnosis/Problem Admission Diagnosis/Problem COVID 19 pneumonia, acute hypoxic respiratory failure, syncope Subjective Update: Continues to feel shortness of breath with exertion. Denies any chest pain. Tends to have mornings that are worse with increased oxygen needs then as the day goes on needs to drop to 5 to 6 L nasal cannula. Reports appetite since overnight. Requesting something for her nasal dryness. Cough continues but is dry nonproductive no peripheral edema. Functional Status: Reports: Pain Controlled, Tolerating Diet. Denies: Ambula ting (Using bedside commode due to exertional hypoxia and dyspnea) - Review of Systems General: Reports: Fatigue, Malaise HEENT: Reports: Sinus Congestion, Other (Bloody nose overnight) Pulmonary: Reports: Shortness of Breath, Cough (Dry) Cardiovascular: Reports: Dyspnea on Exertion Gastrointestinal: Reports: No Symptoms. Denies: Abdominal Pain, Nausea, Vomiting Genitourinary: Reports: No Symptoms. Denies: Dysuria, Frequency, Burning Musculoskeletal: Reports: No Symptoms Skin: Reports: No Symptoms Neurological: Reports: No Symptoms Psychiatric: Reports: No Symptoms - Patient Data Vitals - Most Recent: Last Vital Signs Temp 97.7 F 04/01/20 04:05 Pulse 72 04/01/20 04:05 Resp 20 04/01/20 05:35 BP 132/75 04/01/20 04:05 Pulse Ox 92 L 04/01/20 05:35 Orthostatic Blood Pressure [ 102/46 Standing] Orthostatic Blood Pressure [ 100/62 Sitting] Orthostatic Blood Pressure [ 121/65 Supine] Weight - Most Recent: 132.993 kg I&O - Last 24 Hours: Intake & Output 03/31/20 04/01/20 04/01/20 22:59 06:59 14:59 Intake Total 850 650 Output Total 600 950 Balance 250 -300 Lab Results Last 24 Hours: Laboratory Results - last 24 hr 03/31/20 03/31/20 03/31/20 Range/Units 12:19 18:33 20:46 WBC (4.0-11.0) K/uL RBC (4.30-5.90) M/uL Hgb (12.0-16.0) g/dL Hct (36.0-46.0) % MCV (80.0-98.0) fL MCH (27.0-32.0) pg MCHC (31.0-37.0) g/dL RDW Std Deviation (28.0-62.0) fl RDW Coeff of Speedy (11.0-15.0) % Plt Count (150-400) K/uL MPV (7.40-12.00) fL Neut % (Auto) (48.0-80.0) % Lymph % (Auto) (16.0-40.0) % [place] % (Auto) (0.0-15.0) % Eos % (Auto) (0.0-7.0) % Baso % (Auto) (0.0-1.5) % Neut # (Auto) (1.4-5.7) K/uL Lymph # (Auto) (0.6-2.4) K/uL [place] # (Auto) (0.0-0.8) K/uL Eos # (Auto) (0.0-0.7) K/uL Baso # (Auto) (0.0-0.1) K/uL Nucleated RBC % /100WBC Nucleated RBCs # K/uL Sodium (136-145) mmol/L Potassium (3.5-5.1) mmol/L Chloride (98-107) mmol/L Carbon Dioxide (21.0-32.0) mmol/L BUN (7.0-18.0) mg/dL Creatinine (0.6-1.0) mg/dL Est Cr Clr Drug Dosing mL/min Estimated GFR (MDRD) ml/min Glucose (74-106) mg/dL POC Glucose 295 H 324 H 348 H (60-110) mg/dL Calcium (8.5-10.1) mg/dL Magnesium (1.8-2.4) mg/dL 04/01/20 04/01/20 04/01/20 Range/Units 06:16 06:32 06:32 WBC 8.73 (4.0-11.0) K/uL RBC 4.48 (4.30-5.90) M/uL Hgb 12.0 (12.0-16.0) g/dL Hct 36.9 (36.0-46.0) % MCV 82.4 (80.0-98.0) fL MCH 26.8 L (27.0-32.0) pg MCHC 32.5 (31.0-37.0) g/dL RDW Std Deviation 39.9 (28.0-62.0) fl RDW Coeff of Speedy 13 (11.0-15.0) % Plt Count 135 L (150-400) K/uL MPV 10.50 (7.40-12.00) fL Neut % (Auto) 93.0 H (48.0-80.0) % Lymph % (Auto) 4.2 L (16.0-40.0) % [place] % (Auto) 2.5 (0.0-15.0) % Eos % (Auto) 0.3 (0.0-7.0) % Baso % (Auto) 0.0 (0.0-1.5) % Neut # (Auto) 8.1 H (1.4-5.7) K/uL Lymph # (Auto) 0.4 L (0.6-2.4) K/uL [place] # (Auto) 0.2 (0.0-0.8) K/uL Eos # (Auto) 0.0 (0.0-0.7) K/uL Baso # (Auto) 0.0 (0.0-0.1) K/uL Nucleated RBC % 0.0 /100WBC Nucleated RBCs # 0 K/uL Sodium 138 (136-145) mmol/L Potassium 4.4 (3.5-5.1) mmol/L Chloride 101 (98-107) mmol/L Carbon Dioxide 32.7 H (21.0-32.0) mmol/L BUN 25 H (7.0-18.0) mg/dL Creatinine 0.8 (0.6-1.0) mg/dL Est Cr Clr Drug Dosing 87.70 mL/min Estimated GFR (MDRD) > 60.0 ml/min Glucose 121 H (74-106) mg/dL POC Glucose 121 H (60-110) mg/dL Calcium 8.8 (8.5-10.1) mg/dL Magnesium 2.0 (1.8-2.4) mg/dL Med Orders - Current: Current Medications Acetaminophen (Tylenol) 650 mg PO Q4H PRN PRN Reason: Pain Last Admin: 03/31/20 22:10 Dose: 650 mg Documented by: Albuterol/Ipratropium (Duoneb 3.0-0.5 Mg/3 Ml) 3 ml NEB Q4HRRT PRN PRN Reason: Shortness Of Breath/wheezing Albuterol/Ipratropium (Combivent Respimat) 0 gm INH Q4HRRT PRN PRN Reason: Shortness of Breath Last Admin: 03/31/20 06:25 Dose: 1 puff Documented by: Aspirin (Aspirin) 81 mg PO DAILY [facility] Last Admin: 03/31/20 08:47 Dose: 81 mg Documented by: Atorvastatin Calcium (Lipitor) 80 mg PO BEDTIME [facility] Last Admin: 03/31/20 20:47 Dose: 80 mg Documented by: Benzonatate (Tessalon Perles) 200 mg PO TID PRN PRN Reason: Cough Last Admin: 03/31/20 22:10 Dose: 200 mg Documented by: Carvedilol (Coreg) 12.5 mg PO BID [facility] Last Admin: 03/31/20 20:47 Dose: 12.5 mg Documented by: Clopidogrel Bisulfate (Plavix) 75 mg PO DAILY [facility] Last Admin: 03/31/20 08:46 Dose: 75 mg Documented by: Dexamethasone (Dexamethasone) 6 mg PO DAILY [facility] Stop: 04/01/20 09:01 Last Admin: 03/31/20 08:47 Dose: 6 mg Documented by: Dextrose/Water (Dextrose 50% In Water) 50 ml IVPUSH ASDIRECTED PRN PRN Reason: Hypoglycemia Enoxaparin Sodium (Lovenox) 40 mg SUBCUT BID [facility] Last Admin: 03/31/20 20:48 Dose: 40 mg Documented by: Fluticasone Propionate (Flovent Hfa 110 Mcg) 0 gm INH BID [facility] Last Admin: 03/31/20 20:47 Dose: 2 puff Documented by: Furosemide (Lasix) 40 mg PO DAILY [facility] Last Admin: 03/31/20 12:39 Dose: 40 mg Documented by: Glucagon (Glucagen) 1 mg IM ASDIRECTED PRN PRN Reason: Hypoglycemia Insulin Aspart (Novolog) 20 unit SUBCUT TIDAC [facility] Last Admin: 03/31/20 18:39 Dose: 20 unit Documented by: Insulin Aspart (Novolog) 0 unit SUBCUT TIDAC [facility]; Protocol Last Admin: 03/31/20 18:40 Dose: 8 unit Documented by: Insulin Glargine (Lantus Solostar) 50 units SUBCUT BEDTIME [facility] Last Admin: 03/31/20 20:48 Dose: 50 units Documented by: Nitroglycerin (Nitrostat) 0.4 mg SL .EVERY 5 MINUTES PRN PRN Reason: Chest Pain Nystatin (Nystop) 0 gm TOP TID [facility] Last Admin: 04/01/20 06:44 Dose: Not Given Documented by: Ondansetron HCl (Zofran Odt) 4 mg PO Q4H PRN PRN Reason: nausea, able to take PO Pantoprazole Sodium (Protonix) 40 mg PO DAILY [facility] Last Admin: 03/31/20 08:35 Dose: 40 mg Documented by: Sertraline HCl (Zoloft) 200 mg PO DAILY [facility] Last Admin: 03/31/20 08:45 Dose: 200 mg Documented by: Sodium Chloride (Saline Flush) 10 ml FLUSH ASDIRECTED PRN PRN Reason: Keep Vein Open Last Admin: 03/23/20 19:05 Dose: 10 ml Documented by: Sodium Chloride (Saline Flush) 2.5 ml FLUSH ASDIRECTED PRN PRN Reason: Keep Vein Open Last Admin: 03/23/20 19:05 Dose: 2.5 ml Documented by: Discontinued Medications Acetaminophen (Tylenol) 650 mg PO NOW ONE Stop: 03/23/20 17:51 Last Admin: 03/23/20 19:08 Dose: 650 mg Documented by: Albuterol/Ipratropium (Combivent Respimat) 0 gm INH QID [facility] Last Admin: 03/30/20 12:25 Dose: 1 inhalation Documented by: Dextrose/Water (Dextrose 50% In Water) 50 ml IV ASDIRECTED PRN PRN Reason: Hypoglycemia Dextrose/Water (Dextrose 50% In Water) 50 ml IV ASDIRECTED PRN PRN Reason: Hypoglycemia Dextrose/Water (Dextrose 50% In Water) 50 ml IVPUSH ASDIRECTED PRN PRN Reason: Hypoglycemia Dextrose/Water (Dextrose 50% In Water) 50 ml IVPUSH ASDIRECTED PRN PRN Reason: Hypoglycemia Dextrose/Water (Dextrose 50% In Water) 50 ml IV ASDIRECTED PRN PRN Reason: Hypoglycemia Enoxaparin Sodium (Lovenox) 40 mg SUBCUT Q24H [facility] Last Admin: 03/23/20 23:08 Dose: Not Given Documented by: Enoxaparin Sodium (Lovenox) 40 mg SUBCUT BEDTIME [facility] Last Admin: 03/25/20 20:36 Dose: 40 mg Documented by: Fentanyl (Fentanyl) 100 mcg IVPUSH ONETIME ONE Stop: 03/23/20 16:29 Last Admin: 03/23/20 19:06 Dose: Not Given Documented by: Furosemide (Lasix) 20 mg IVPUSH ONETIME ONE Stop: 03/26/20 11:02 Last Admin: 03/26/20 12:43 Dose: 20 mg Documented by: Glucagon (Glucagen) 1 mg IM ASDIRECTED PRN PRN Reason: Hypoglycemia Glucagon (Glucagen) 1 mg IM ASDIRECTED PRN PRN Reason: Hypoglycemia Glucagon (Glucagen) 1 mg IM ASDIRECTED PRN PRN Reason: Hypoglycemia Glucagon (Glucagen) 1 mg IM ASDIRECTED PRN PRN Reason: Hypoglycemia Glucagon (Glucagen) 1 mg IM ASDIRECTED PRN PRN Reason: Hypoglycemia Sodium Chloride (Normal Saline) 1,000 mls @ 999 mls/hr IV STAT ONE Stop: 03/23/20 19:08 Last Admin: 03/23/20 19:08 Dose: 999 mls/hr Documented by: Levofloxacin/Dextrose 750 mg/ (Premix) 150 mls @ 100 mls/hr IV Q24H [facility] Last Admin: 03/30/20 20:00 Dose: 100 mls/hr Documented by: [facility]) [facility] Protocol Last Admin: 03/25/20 13:20 Dose: Not Given Documented by: Insulin Aspart (Novolog) 4 unit SUBCUT TIDAC [facility] Last Admin: 03/24/20 12:34 Dose: Not Given Documented by: Insulin Aspart (Novolog) 15 unit SUBCUT ONETIME ONE Stop: 03/24/20 12:04 Last Admin: 03/24/20 12:16 Dose: 15 units Documented by: Insulin Aspart (Novolog) 8 unit SUBCUT TIDAC [facility] Last Admin: 03/25/20 13:21 Dose: Not Given Documented by: Insulin Aspart (Novolog) 15 unit SUBCUT ONETIME ONE Stop: 03/24/20 20:45 Last Admin: 03/24/20 21:05 Dose: 15 unit Documented by: Insulin Aspart (Novolog) 20 unit SUBCUT ONETIME ONE Stop: 03/27/20 21:19 Insulin Aspart (Novolog) 0 unit SUBCUT TIDAC [facility]; Protocol Insulin Aspart (Novolog) 20 unit SUBCUT ONETIME ONE Stop: 03/26/20 21:19 Last Admin: 03/26/20 21:35 Dose: 20 unit Documented by: Insulin Aspart (Novolog) 10 unit SUBCUT ACBREAKFAST ONE Stop: 03/30/20 08:01 Last Admin: 03/30/20 08:14 Dose: Not Given Documented by: Iopamidol (Isovue Multipack-370 (76%)) 100 ml IVPUSH ONETIME ONE Stop: 03/23/20 17:47 Last Admin: 03/23/20 17:46 Dose: 100 ml Documented by: Iopamidol (Isovue Multipack-370 (76%)) 100 ml IVPUSH ONETIME STA Stop: 03/27/20 12:52 Last Admin: 03/27/20 12:52 Dose: 100 ml Documented by: Iopamidol (Isovue Multipack-370 (76%)) 100 ml IVPUSH ONETIME STA Stop: 03/27/20 14:06 Last Admin: 03/27/20 21:46 Dose: Not Given Documented by: - Exam Quality Assessment: Supplemental Oxygen, DVT Prophylaxis General: Alert, Oriented, Cooperative, No Acute Distress HEENT: Pupils Equal, Pupils Reactive, Other (Old blood noted around nares. Saw Vaseline on bedside table counseled she is not to use Vaseline within her nares. Will order saline gel for this) Neck: Supple Lungs: Decreased Breath Sounds, Crackles (Bibasilar and fine). No: Normal Respiratory Effort (Dyspnea with exertion) Cardiovascular: Regular Rate, Regular Rhythm, No Murmurs GI/Abdominal Exam: Normal Bowel Sounds, Soft, Non-Tender Extremities: Normal Inspection, Normal Range of Motion, Non-Tender, No Pedal Edema Wound/Incisions: Healing Well Neurological: No New Focal Deficit Psy/Mental Status: Alert, Normal Affect, Normal Mood Sepsis Event Note - Evaluation Sepsis Screening Result: No Definite Risk - Focused Exam Vital Signs: Vital Signs Temp Pulse Pulse Resp BP BP Pulse Ox 04/01/20 05:35 20 92 L 04/01/20 04:05 97.7 F 72 18 132/75 95 03/31/20 23:39 98 F 74 18 138/78 94 L 03/31/20 20:47 72 128/71 03/31/20 20:41 97.4 F 72 18 128/71 94 L - Problem List & Annotations (1) CORNELIA (acute kidney injury) SNOMED Code(s): 48513092, 57901130 Code(s): N17.9 - ACUTE KIDNEY FAILURE, UNSPECIFIED Status: Resolved Current Visit: Yes (2) COVID-19 SNOMED Code(s): 229815618 Code(s): U07.1 - COVID-19 Status: Acute Current Visit: Yes (3) Chest pain, rule out acute myocardial infarction SNOMED Code(s): 96281665 Code(s): R07.9 - CHEST PAIN, UNSPECIFIED Status: Resolved Current Visit: Yes (4) Orthostatic hypotension SNOMED Code(s): 39697042 Code(s): I95.1 - ORTHOSTATIC HYPOTENSION Status: Acute Current Visit: Yes (5) Syncope SNOMED Code(s): 780645163 Code(s): R55 - SYNCOPE AND COLLAPSE Status: Acute Current Visit: Yes Qualifiers: Syncope type: unspecified Qualified Code(s): R55 - Syncope and collapse (6) (HFpEF) heart failure with preserved ejection fraction SNOMED Code(s): 373134072 Code(s): I50.30 - UNSPECIFIED DIASTOLIC (CONGESTIVE) HEART FAILURE Status: Acute Current Visit: No Qualifiers: Heart failure chronicity: acute on chronic Qualified Code(s): I50.33 - Acute on chronic diastolic (congestive) heart failure (7) Acute respiratory failure with hypoxia SNOMED Code(s): 30788832, 071365267 Code(s): J96.01 - ACUTE RESPIRATORY FAILURE WITH HYPOXIA Status: Acute Current Visit: No (8) DM type 2 (diabetes mellitus, type 2) SNOMED Code(s): 12036121 Code(s): E11.9 - TYPE 2 DIABETES MELLITUS WITHOUT COMPLICATIONS Status: Chronic Current Visit: No Qualifiers: 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: with termite control service representative use Diabetes mellitus complication status: with hyperglycemia Qualified Code(s): E11.65 - Type 2 diabetes mellitus with hyperglycemia; Z79.4 - senior living (current) use of insulin (9) HLD (hyperlipidemia) SNOMED Code(s): 44341770 Code(s): E78.5 - HYPERLIPIDEMIA, UNSPECIFIED Status: Chronic Current Visit: No (10) HTN (hypertension) SNOMED Code(s): 31266347 Code(s): I10 - ESSENTIAL (PRIMARY) HYPERTENSION Status: Chronic Current Visit: No (11) Obesity SNOMED Code(s): 483562424, 319402872 Code(s): E66.9 - OBESITY, UNSPECIFIED Status: Chronic Current Visit: No Qualifiers: Serious obesity comorbidity presence: with serious comorbidity (12) History of CVA (cerebrovascular accident) SNOMED Code(s): 077239456 Code(s): Z86.73 - PRSNL HX OF TIA (TIA), AND CEREB INFRC W/O RESID DEFICITS Status: Acute Current Visit: Yes - Problem List Review Problem List Initiated/Reviewed/Updated: Yes - My Orders Last 24 Hours: My Active Orders 03/31/20 11:30 Furosemide [Lasix] 40 mg PO DAILY 04/02/20 05:11 BASIC METABOLIC PANEL,BMP [CHEM] AM CBC WITH AUTO DIFF [HEME] AM MAGNESIUM [CHEM] AM 04/03/20 05:11 BASIC METABOLIC PANEL,BMP [CHEM] AM CBC WITH AUTO DIFF [HEME] AM MAGNESIUM [CHEM] AM 04/04/20 05:11 BASIC METABOLIC PANEL,BMP [CHEM] AM CBC WITH AUTO DIFF [HEME] AM MAGNESIUM [CHEM] AM - Plan Plan:: This 49-year-old female admitted with multiple syncopal episodes at home with weakness shortness of breath 1. COVID-19 pneumonia with acute hypoxic respiratory failure - Continues to have dizziness and hypoxia with movement. needing increased oxygen demands with walking to bathroom. - Mild improvement - Oxygen needs continue at 5 to 6 L today. -Completed course of dexamethasone and Levaquin - Oxygen therapy to keep sats greater than 92%, wean as possible - Encouraged proning or at least left lateral decubitus position. - IS and flutter - Combivent inhaler every 4 hours as needed dyspnea - Guaifenesin with codeine as needed cough along with Tessalon Perles - AYR nasal saline gel for nasal dryness. Educated on not using Vaseline to nares while on oxygen. 2. HFpEF/CAD/hypertension/CVA/Carotid stenosis - Daily weights strict I's and O's - Restart Lasix 40 mg PO today. - Continue carvedilol 12.5 mg twice daily - Holding amlodipine and lisinopril due to orthostatic hypotension - Continue aspirin and Plavix - Continue statin and Zetia 3. Dm Type 2 - Blood sugars continue to be well controlled - NovoLog 20 units with each meal, plus SSI - Lantus 50 units subcutaneously in the evening VTE prophylaxis: Lovenox twice daily CODE STATUS: FULL CODE Dispo: 2 to 3 days pending improvement.
[2020-04-01] MEDS: Insulin Aspart 100 Units/ML 3 ML Pen SUBCUT SCH ×6 (08:25→16:43)
[2020-04-01] MEDS: Enoxaparin 40 MG/0.4 ML Syringe SUBCUT SCH ×2 (08:28→21:14)
[2020-04-01] MEDS: Sertraline 100 MG Tab PO SCH (08:30)
[2020-04-01] MEDS: Furosemide 40 MG Tab PO SCH (08:31)
[2020-04-01] MEDS: Aspirin 81 MG Tab.Chew PO SCH (08:31)
[2020-04-01] MEDS: Dexamethasone 4 MG Tab PO SCH (08:32)
[2020-04-01] MEDS: Pantoprazole 40 MG Tab.CR PO SCH (08:32)
[2020-04-01] MEDS: Clopidogrel 75 MG Tab PO SCH (08:32)
[2020-04-01] MEDS: Carvedilol 12.5 MG Tab PO SCH ×2 (08:36→21:13)
[2020-04-01] MEDS: Albuterol/Ipratropium 4 GM Inhalation Spray INH PRN ×2 (09:10→21:11)
[2020-04-01] MEDS: Fluticasone Propionate 110 MCG/Puff 12 GM Inhaler INH SCH ×2 (09:11→21:11)
[2020-04-01] MEDS: Aloe Vera/Sodium Chloride Gel 14.1 GM Tube NAS PRN (10:13)
[2020-04-01] MEDS: Acetaminophen 325 MG Tab PO PRN ×2 (10:18→21:13)
[2020-04-01] MEDS: Benzonatate 100 MG Cap PO PRN ×2 (10:19→21:12)
[2020-04-01] MEDS: atorvaSTATin 40 MG Tab PO SCH (21:13)
[2020-04-01] MEDS: Insulin Glargine,Human Rec. Analog 100 Units/ML 3 ML Pen SUBCUT SCH (21:15)
[2020-04-02] MEDS: Nystatin Topical Powder 15 GM Bottle TOP SCH ×3 (05:16→21:42)
[2020-04-02 07:16] LABS: BLOOD UREA NITROGEN,BUN 28 mg/dL (7.0-18.0); CARBON DIOXIDE,CO2 34.1 mmol/L (21.0-32.0); CHLORIDE,CL 102 mmol/L (98-107); GLUCOSE RANDOM 133 mg/dL (74-106); POTASSIUM,K 4.3 mmol/L (3.5-5.1); SODIUM,NA 138 mmol/L (136-145)
[2020-04-02] MEDS: Aspirin 81 MG Tab.Chew PO SCH (08:12)
[2020-04-02] MEDS: Furosemide 40 MG Tab PO SCH (08:13)
[2020-04-02] MEDS: Pantoprazole 40 MG Tab.CR PO SCH (08:13)
[2020-04-02] MEDS: Sertraline 100 MG Tab PO SCH (08:13)
[2020-04-02] MEDS: Clopidogrel 75 MG Tab PO SCH (08:13)
[2020-04-02] MEDS: Enoxaparin 40 MG/0.4 ML Syringe SUBCUT SCH ×2 (08:13→21:36)
[2020-04-02] MEDS: Carvedilol 12.5 MG Tab PO SCH ×2 (08:16→21:30)
[2020-04-02] MEDS: Insulin Aspart 100 Units/ML 3 ML Pen SUBCUT SCH ×6 (08:19→17:40)
[2020-04-02] MEDS: Fluticasone Propionate 110 MCG/Puff 12 GM Inhaler INH SCH ×2 (08:27→21:41)
[2020-04-02] MEDS: Albuterol/Ipratropium 4 GM Inhalation Spray INH PRN (09:54)
[2020-04-02] MEDS: Acetaminophen 325 MG Tab PO PRN ×2 (09:58→18:31)
[2020-04-02] MEDS: Benzonatate 100 MG Cap PO PRN (09:59)
--- NOTE | 2020-04-02 11:31 | PCM.PN ---
- General Info Date of Service: 04/02/20 Admission Dx/Problem (Free Text): Admission Diagnosis/Problem Admission Diagnosis/Problem COVID 19 pneumonia, acute hypoxic respiratory failure, syncope Subjective Update: Continues to feel shortness of breath with exertion, still feels dizzy when getting up. Denies any chest pain. per nursing patient isnt engaging in much ICS, is mostly laying on her back and barely getting out of bed, Functional Status: Reports: Pain Controlled, Tolerating Diet, Urinating - Review of Systems General: Reports: Weakness. Denies: Fever, Fatigue, Malaise, Chills Pulmonary: Reports: Shortness of Breath, Cough. Denies: Pleuritic Chest Pain Cardiovascular: Reports: Dyspnea on Exertion. Denies: Chest Pain, Palpitations, Orthopnea Gastrointestinal: Denies: Abdominal Pain, Constipation, Decreased Appetite, Diarrhea Genitourinary: Denies: Dysuria, Frequency, Burning - Patient Data Vitals - Most Recent: Last Vital Signs Temp 35.7 C L 04/02/20 08:23 Pulse 78 04/02/20 10:15 Resp 18 04/02/20 10:09 BP 107/63 04/02/20 10:15 Pulse Ox 93 L 04/02/20 10:09 Orthostatic Blood Pressure [ 102/46 Standing] Orthostatic Blood Pressure [ 100/62 Sitting] Orthostatic Blood Pressure [ 121/65 Supine] Weight - Most Recent: 132.494 kg I&O - Last 24 Hours: Intake & Output 04/01/20 04/02/20 04/02/20 22:59 06:59 14:59 Intake Total 908 650 Output Total 2650 850 Balance -1742 -200 Lab Results Last 24 Hours: Laboratory Results - last 24 hr 04/01/20 04/01/20 04/02/20 Range/Units 11:28 16:41 06:00 WBC 7.20 (4.0-11.0) K/uL RBC 4.20 L (4.30-5.90) M/uL Hgb 11.2 L (12.0-16.0) g/dL Hct 34.6 L (36.0-46.0) % MCV 82.4 (80.0-98.0) fL MCH 26.7 L (27.0-32.0) pg MCHC 32.4 (31.0-37.0) g/dL RDW Std Deviation 40.6 (28.0-62.0) fl RDW Coeff of Speedy 13 (11.0-15.0) % Plt Count 120 L (150-400) K/uL MPV 10.10 (7.40-12.00) fL Neut % (Auto) 90.0 H (48.0-80.0) % Lymph % (Auto) 5.1 L (16.0-40.0) % Crook % (Auto) 3.8 (0.0-15.0) % Eos % (Auto) 1.1 (0.0-7.0) % Baso % (Auto) 0.0 (0.0-1.5) % Neut # (Auto) 6.5 H (1.4-5.7) K/uL Lymph # (Auto) 0.4 L (0.6-2.4) K/uL Crook # (Auto) 0.3 (0.0-0.8) K/uL Eos # (Auto) 0.1 (0.0-0.7) K/uL Baso # (Auto) 0.0 (0.0-0.1) K/uL Nucleated RBC % 0.0 /100WBC Nucleated RBCs # 0 K/uL Sodium (136-145) mmol/L Potassium (3.5-5.1) mmol/L Chloride (98-107) mmol/L Carbon Dioxide (21.0-32.0) mmol/L BUN (7.0-18.0) mg/dL Creatinine (0.6-1.0) mg/dL Est Cr Clr Drug Dosing mL/min Estimated GFR (MDRD) ml/min Glucose (74-106) mg/dL POC Glucose 137 H 225 H (60-110) mg/dL Calcium (8.5-10.1) mg/dL Magnesium (1.8-2.4) mg/dL 04/02/20 04/02/20 Range/Units 06:00 06:25 WBC (4.0-11.0) K/uL RBC (4.30-5.90) M/uL Hgb (12.0-16.0) g/dL Hct (36.0-46.0) % MCV (80.0-98.0) fL MCH (27.0-32.0) pg MCHC (31.0-37.0) g/dL RDW Std Deviation (28.0-62.0) fl RDW Coeff of Speedy (11.0-15.0) % Plt Count (150-400) K/uL MPV (7.40-12.00) fL Neut % (Auto) (48.0-80.0) % Lymph % (Auto) (16.0-40.0) % Crook % (Auto) (0.0-15.0) % Eos % (Auto) (0.0-7.0) % Baso % (Auto) (0.0-1.5) % Neut # (Auto) (1.4-5.7) K/uL Lymph # (Auto) (0.6-2.4) K/uL Crook # (Auto) (0.0-0.8) K/uL Eos # (Auto) (0.0-0.7) K/uL Baso # (Auto) (0.0-0.1) K/uL Nucleated RBC % /100WBC Nucleated RBCs # K/uL Sodium 138 (136-145) mmol/L Potassium 4.3 (3.5-5.1) mmol/L Chloride 102 (98-107) mmol/L Carbon Dioxide 34.1 H (21.0-32.0) mmol/L BUN 28 H (7.0-18.0) mg/dL Creatinine 0.8 (0.6-1.0) mg/dL Est Cr Clr Drug Dosing 87.70 mL/min Estimated GFR (MDRD) > 60.0 ml/min Glucose 133 H (74-106) mg/dL POC Glucose 137 H (60-110) mg/dL Calcium 8.8 (8.5-10.1) mg/dL Magnesium 2.0 (1.8-2.4) mg/dL Med Orders - Current: Current Medications Acetaminophen (Tylenol) 650 mg PO Q4H PRN PRN Reason: Pain Last Admin: 04/02/20 09:58 Dose: 650 mg Documented by: Albuterol/Ipratropium (Duoneb 3.0-0.5 Mg/3 Ml) 3 ml NEB Q4HRRT PRN PRN Reason: Shortness Of Breath/wheezing Albuterol/Ipratropium (Combivent Respimat) 0 gm INH Q4HRRT PRN PRN Reason: Shortness of Breath Last Admin: 04/02/20 09:54 Dose: 1 puff Documented by: Aspirin (Aspirin) 81 mg PO DAILY [facility] Last Admin: 04/02/20 08:12 Dose: 81 mg Documented by: Atorvastatin Calcium (Lipitor) 80 mg PO BEDTIME [facility] Last Admin: 04/01/20 21:13 Dose: 80 mg Documented by: Benzonatate (Tessalon Perles) 200 mg PO TID PRN PRN Reason: Cough Last Admin: 04/02/20 09:59 Dose: 200 mg Documented by: Carvedilol (Coreg) 12.5 mg PO BID [facility] Last Admin: 04/02/20 08:16 Dose: Not Given Documented by: Clopidogrel Bisulfate (Plavix) 75 mg PO DAILY [facility] Last Admin: 04/02/20 08:13 Dose: 75 mg Documented by: Dextrose/Water (Dextrose 50% In Water) 50 ml IVPUSH ASDIRECTED PRN PRN Reason: Hypoglycemia Enoxaparin Sodium (Lovenox) 40 mg SUBCUT BID [facility] Last Admin: 04/02/20 08:13 Dose: 40 mg Documented by: Fluticasone Propionate (Flovent Hfa 110 Mcg) 0 gm INH BID [facility] Last Admin: 04/02/20 08:27 Dose: 2 puff Documented by: Furosemide (Lasix) 40 mg PO DAILY [facility] Last Admin: 04/02/20 08:13 Dose: 40 mg Documented by: Glucagon (Glucagen) 1 mg IM ASDIRECTED PRN PRN Reason: Hypoglycemia Insulin Aspart (Novolog) 20 unit SUBCUT TIDAC [facility] Last Admin: 04/02/20 08:19 Dose: 20 unit Documented by: Insulin Aspart (Novolog) 0 unit SUBCUT TIDAC [facility]; Protocol Last Admin: 04/02/20 08:19 Dose: Not Given Documented by: Insulin Glargine (Lantus Solostar) 50 units SUBCUT BEDTIME [facility] Last Admin: 04/01/20 21:15 Dose: 50 units Documented by: Nitroglycerin (Nitrostat) 0.4 mg SL .EVERY 5 MINUTES PRN PRN Reason: Chest Pain Nystatin (Nystop) 0 gm TOP TID [facility] Last Admin: 04/02/20 05:16 Dose: Not Given Documented by: Ondansetron HCl (Zofran Odt) 4 mg PO Q4H PRN PRN Reason: nausea, able to take PO Pantoprazole Sodium (Protonix) 40 mg PO DAILY [facility] Last Admin: 04/02/20 08:13 Dose: 40 mg Documented by: Sertraline HCl (Zoloft) 200 mg PO DAILY [facility] Last Admin: 04/02/20 08:13 Dose: 200 mg Documented by: Sodium Chloride (Saline Flush) 10 ml FLUSH ASDIRECTED PRN PRN Reason: Keep Vein Open Last Admin: 03/23/20 19:05 Dose: 10 ml Documented by: Sodium Chloride (Saline Flush) 2.5 ml FLUSH ASDIRECTED PRN PRN Reason: Keep Vein Open Last Admin: 03/23/20 19:05 Dose: 2.5 ml Documented by: Sodium Chloride ([place] Saline Nasal Gel) 0 gm EZE ASDIRECTED PRN PRN Reason: Nasal Dryness Last Admin: 04/01/20 10:13 Dose: 1 each Documented by: Discontinued Medications Acetaminophen (Tylenol) 650 mg PO NOW ONE Stop: 03/23/20 17:51 Last Admin: 03/23/20 19:08 Dose: 650 mg Documented by: Albuterol/Ipratropium (Combivent Respimat) 0 gm INH QID [facility] Last Admin: 03/30/20 12:25 Dose: 1 inhalation Documented by: Dexamethasone (Dexamethasone) 6 mg PO DAILY [facility] Stop: 04/01/20 09:01 Last Admin: 04/01/20 08:32 Dose: 6 mg Documented by: Dextrose/Water (Dextrose 50% In Water) 50 ml IV ASDIRECTED PRN PRN Reason: Hypoglycemia Dextrose/Water (Dextrose 50% In Water) 50 ml IV ASDIRECTED PRN PRN Reason: Hypoglycemia Dextrose/Water (Dextrose 50% In Water) 50 ml IVPUSH ASDIRECTED PRN PRN Reason: Hypoglycemia Dextrose/Water (Dextrose 50% In Water) 50 ml IVPUSH ASDIRECTED PRN PRN Reason: Hypoglycemia Dextrose/Water (Dextrose 50% In Water) 50 ml IV ASDIRECTED PRN PRN Reason: Hypoglycemia Enoxaparin Sodium (Lovenox) 40 mg SUBCUT Q24H [facility] Last Admin: 03/23/20 23:08 Dose: Not Given Documented by: Enoxaparin Sodium (Lovenox) 40 mg SUBCUT BEDTIME [facility] Last Admin: 03/25/20 20:36 Dose: 40 mg Documented by: Fentanyl (Fentanyl) 100 mcg IVPUSH ONETIME ONE Stop: 03/23/20 16:29 Last Admin: 03/23/20 19:06 Dose: Not Given Documented by: Furosemide (Lasix) 20 mg IVPUSH ONETIME ONE Stop: 03/26/20 11:02 Last Admin: 03/26/20 12:43 Dose: 20 mg Documented by: Glucagon (Glucagen) 1 mg IM ASDIRECTED PRN PRN Reason: Hypoglycemia Glucagon (Glucagen) 1 mg IM ASDIRECTED PRN PRN Reason: Hypoglycemia Glucagon (Glucagen) 1 mg IM ASDIRECTED PRN PRN Reason: Hypoglycemia Glucagon (Glucagen) 1 mg IM ASDIRECTED PRN PRN Reason: Hypoglycemia Glucagon (Glucagen) 1 mg IM ASDIRECTED PRN PRN Reason: Hypoglycemia Sodium Chloride (Normal Saline) 1,000 mls @ 999 mls/hr IV STAT ONE Stop: 03/23/20 19:08 Last Admin: 03/23/20 19:08 Dose: 999 mls/hr Documented by: Levofloxacin/Dextrose 750 mg/ (Premix) 150 mls @ 100 mls/hr IV Q24H [facility] Last Admin: 03/30/20 20:00 Dose: 100 mls/hr Documented by: Insulin Aspart (Novolog) 0 unit SUBCUT TIDAC [facility]; Protocol Last Admin: 03/25/20 13:20 Dose: Not Given Documented by: Insulin Aspart (Novolog) 4 unit SUBCUT TIDAC [facility] Last Admin: 03/24/20 12:34 Dose: Not Given Documented by: Insulin Aspart (Novolog) 15 unit SUBCUT ONETIME ONE Stop: 03/24/20 12:04 Last Admin: 03/24/20 12:16 Dose: 15 units Documented by: Insulin Aspart (Novolog) 8 unit SUBCUT TIDAC [facility] Last Admin: 03/25/20 13:21 Dose: Not Given Documented by: Insulin Aspart (Novolog) 15 unit SUBCUT ONETIME ONE Stop: 03/24/20 20:45 Last Admin: 03/24/20 21:05 Dose: 15 unit Documented by: Insulin Aspart (Novolog) 20 unit SUBCUT ONETIME ONE Stop: 03/27/20 21:19 Insulin Aspart (Novolog) 0 unit SUBCUT TIDAC [facility]; Protocol Insulin Aspart (Novolog) 20 unit SUBCUT ONETIME ONE Stop: 03/26/20 21:19 Last Admin: 03/26/20 21:35 Dose: 20 unit Documented by: Insulin Aspart (Novolog) 10 unit SUBCUT ACBREAKFAST ONE Stop: 03/30/20 08:01 Last Admin: 03/30/20 08:14 Dose: Not Given Documented by: Iopamidol (Isovue Multipack-370 (76%)) 100 ml IVPUSH ONETIME ONE Stop: 03/23/20 17:47 Last Admin: 03/23/20 17:46 Dose: 100 ml Documented by: Iopamidol (Isovue Multipack-370 (76%)) 100 ml IVPUSH ONETIME STA Stop: 03/27/20 12:52 Last Admin: 03/27/20 12:52 Dose: 100 ml Documented by: Iopamidol (Isovue Multipack-370 (76%)) 100 ml IVPUSH ONETIME STA Stop: 03/27/20 14:06 Last Admin: 03/27/20 21:46 Dose: Not Given Documented by: - Exam Quality Assessment: Supplemental Oxygen General: Alert, Oriented Neck: Supple Lungs: Decreased Breath Sounds, Crackles, Rales Cardiovascular: Regular Rate, Regular Rhythm GI/Abdominal Exam: Normal Bowel Sounds, Soft, Non-Tender Extremities: Normal Inspection, Normal Range of Motion Peripheral Pulses: 3+: Popliteal (R), Posterior Tibial (L) Sepsis Event Note - Evaluation Sepsis Screening Result: No Definite Risk - Focused Exam Vital Signs: Vital Signs Temp Pulse Pulse Resp BP BP BP 04/02/20 10:15 78 107/63 04/02/20 10:09 81 18 83/51 L 04/02/20 08:23 35.7 C L 79 16 96/55 L 04/02/20 08:16 75 96/55 L 04/02/20 04:46 33.3 C L 72 18 101/58 L 04/02/20 00:12 72 18 Pulse Ox 04/02/20 10:15 04/02/20 10:09 93 L 04/02/20 08:23 96 04/02/20 08:16 04/02/20 04:46 92 L 04/02/20 00:12 95 - Problem List & Annotations (1) COVID-19 SNOMED Code(s): 983689049 Code(s): U07.1 - COVID-19 Status: Acute Current Visit: Yes (2) History of CVA (cerebrovascular accident) SNOMED Code(s): 433472464 Code(s): Z86.73 - PRSNL HX OF TIA (TIA), AND CEREB INFRC W/O RESID DEFICITS Status: Acute Current Visit: Yes (3) Orthostatic hypotension SNOMED Code(s): 70792957 Code(s): I95.1 - ORTHOSTATIC HYPOTENSION Status: Acute Current Visit: Yes (4) Syncope SNOMED Code(s): 933611390 Code(s): R55 - SYNCOPE AND COLLAPSE Status: Acute Current Visit: Yes Qualifiers: Syncope type: unspecified Qualified Code(s): R55 - Syncope and collapse (5) CORNELIA (acute kidney injury) SNOMED Code(s): 02134302, 79032337 Code(s): N17.9 - ACUTE KIDNEY FAILURE, UNSPECIFIED Status: Resolved Current Visit: Yes (6) Chest pain, rule out acute myocardial infarction SNOMED Code(s): 07557757 Code(s): R07.9 - CHEST PAIN, UNSPECIFIED Status: Resolved Current Visit: Yes (7) (HFpEF) heart failure with preserved ejection fraction SNOMED Code(s): 033679570 Code(s): I50.30 - UNSPECIFIED DIASTOLIC (CONGESTIVE) HEART FAILURE Status: Acute Current Visit: No Qualifiers: Heart failure chronicity: acute on chronic Qualified Code(s): I50.33 - Acute on chronic diastolic (congestive) heart failure (8) Acute coronary syndrome SNOMED Code(s): 248987915 Code(s): I24.9 - ACUTE ISCHEMIC HEART DISEASE, UNSPECIFIED Status: Acute Current Visit: No (9) Acute respiratory failure with hypoxia SNOMED Code(s): 83417411, 791409380 Code(s): J96.01 - ACUTE RESPIRATORY FAILURE WITH HYPOXIA Status: Acute Current Visit: No - Problem List Review Problem List Initiated/Reviewed/Updated: Yes - Plan Plan:: This 49-year-old female admitted with multiple syncopal episodes at home with weakness shortness of breath 1. COVID-19 pneumonia with acute hypoxic respiratory failure - Continues to have dizziness and hypoxia with movement. needing increased oxygen demands with walking to bathroom. - Mild improvement - Oxygen needs continue at 10 L today. -Completed course of dexamethasone and Levaquin - Oxygen therapy to keep sats greater than 92%, wean as possible - Encouraged proning or at least left lateral decubitus position. - IS and flutter - Combivent inhaler every 4 hours as needed dyspnea - Guaifenesin with codeine as needed cough along with Tessalon Perles - AYR nasal saline gel for nasal dryness. Educated on not using Vaseline to nares while on oxygen. - Reenforced importance of proning, and frequent ICS 2. HFpEF/CAD/hypertension/CVA/Carotid stenosis - Daily weights strict I's and O's - Restart Lasix 40 mg PO today, may need extra dose of lasix today - Continue carvedilol 12.5 mg twice daily - Holding amlodipine and lisinopril due to orthostatic hypotension - Continue aspirin and Plavix - Continue statin and Zetia 3. Dm Type 2 - Blood sugars continue to be well controlled - NovoLog 20 units with each meal, plus SSI - Lantus 50 units subcutaneously in the evening VTE prophylaxis: Lovenox twice daily CODE STATUS: FULL CODE Dispo: 2 to 3 days pending improvement.
[2020-04-02] MEDS ORDERED: Furosemide 20 MG/2 ML VIAL IVPUSH ONE (13:06)
[2020-04-02] MEDS: atorvaSTATin 40 MG Tab PO SCH (21:35)
[2020-04-02] MEDS: Insulin Glargine,Human Rec. Analog 100 Units/ML 3 ML Pen SUBCUT SCH (21:39)
[2020-04-03] MEDS: Nystatin Topical Powder 15 GM Bottle TOP SCH ×3 (05:59→22:45)
[2020-04-03] MEDS: Insulin Aspart 100 Units/ML 3 ML Pen SUBCUT SCH ×6 (06:50→17:34)
[2020-04-03 07:24] LABS: BLOOD UREA NITROGEN,BUN 35 mg/dL (7.0-18.0); CARBON DIOXIDE,CO2 31.6 mmol/L (21.0-32.0); CHLORIDE,CL 101 mmol/L (98-107); GLUCOSE RANDOM 82 mg/dL (74-106); POTASSIUM,K 4.7 mmol/L (3.5-5.1); SODIUM,NA 138 mmol/L (136-145)
[2020-04-03] MEDS: Acetaminophen 325 MG Tab PO PRN ×2 (08:19→21:00)
[2020-04-03] MEDS: Benzonatate 100 MG Cap PO PRN ×2 (08:19→21:00)
[2020-04-03] MEDS: Clopidogrel 75 MG Tab PO SCH (08:20)
[2020-04-03] MEDS: Sertraline 100 MG Tab PO SCH (08:21)
[2020-04-03] MEDS: Pantoprazole 40 MG Tab.CR PO SCH (08:21)
[2020-04-03] MEDS: Furosemide 40 MG Tab PO SCH (08:21)
[2020-04-03] MEDS: Aspirin 81 MG Tab.Chew PO SCH (08:22)
[2020-04-03] MEDS: Fluticasone Propionate 110 MCG/Puff 12 GM Inhaler INH SCH ×2 (08:23→21:03)
[2020-04-03] MEDS: Enoxaparin 40 MG/0.4 ML Syringe SUBCUT SCH ×2 (08:24→21:01)
[2020-04-03] MEDS: Carvedilol 12.5 MG Tab PO SCH ×2 (11:58→20:59)
--- NOTE | 2020-04-03 13:17 | PCM.PN ---
- General Info Date of Service: 04/03/20 Admission Dx/Problem (Free Text): Admission Diagnosis/Problem Admission Diagnosis/Problem COVID 19 pneumonia, acute hypoxic respiratory failure, syncope Subjective Update: Continues to feel shortness of breath with exertion, but recovery time has improved, dizziness is better. has been using IS and getting OOB to chair often, Functional Status: Reports: Pain Controlled, Tolerating Diet, Ambulating, Urinating - Review of Systems General: Reports: Weakness. Denies: Fever, Fatigue, Malaise Pulmonary: Reports: Shortness of Breath. Denies: Pleuritic Chest Pain, Cough, Sputum Cardiovascular: Reports: Dyspnea on Exertion. Denies: Chest Pain, Palpitations, Orthopnea Gastrointestinal: Denies: Abdominal Pain, Constipation, Decreased Appetite Genitourinary: Denies: Dysuria, Frequency, Burning Musculoskeletal: Denies: Neck Pain, Shoulder Pain, Arm Pain, Hand Pain Skin: Reports: Dryness. Denies: Cyanosis, Jaundice, Mottled - Patient Data Vitals - Most Recent: Last Vital Signs Temp 35.9 C L 04/03/20 08:27 Pulse 88 04/03/20 08:27 Resp 20 04/03/20 08:27 BP 97/66 04/03/20 08:27 Pulse Ox 99 04/03/20 08:27 Orthostatic Blood Pressure [ 102/46 Standing] Orthostatic Blood Pressure [ 100/62 Sitting] Orthostatic Blood Pressure [ 121/65 Supine] Weight - Most Recent: 133.7 kg I&O - Last 24 Hours: Intake & Output 04/02/20 04/03/20 04/03/20 22:59 06:59 14:59 Intake Total 825 800 Balance 825 800 Lab Results Last 24 Hours: Laboratory Results - last 24 hr 04/02/20 04/02/20 04/03/20 Range/Units 15:45 21:38 06:42 WBC (4.0-11.0) K/uL RBC (4.30-5.90) M/uL Hgb (12.0-16.0) g/dL Hct (36.0-46.0) % MCV (80.0-98.0) fL MCH (27.0-32.0) pg MCHC (31.0-37.0) g/dL RDW Std Deviation (28.0-62.0) fl RDW Coeff of Speedy (11.0-15.0) % Plt Count (150-400) K/uL MPV (7.40-12.00) fL Neut % (Auto) (48.0-80.0) % Lymph % (Auto) (16.0-40.0) % Braxton % (Auto) (0.0-15.0) % Eos % (Auto) (0.0-7.0) % Baso % (Auto) (0.0-1.5) % Neut # (Auto) (1.4-5.7) K/uL Lymph # (Auto) (0.6-2.4) K/uL Braxton # (Auto) (0.0-0.8) K/uL Eos # (Auto) (0.0-0.7) K/uL Baso # (Auto) (0.0-0.1) K/uL Nucleated RBC % /100WBC Nucleated RBCs # K/uL Sodium (136-145) mmol/L Potassium (3.5-5.1) mmol/L Chloride (98-107) mmol/L Carbon Dioxide (21.0-32.0) mmol/L BUN (7.0-18.0) mg/dL Creatinine (0.6-1.0) mg/dL Est Cr Clr Drug Dosing mL/min Estimated GFR (MDRD) ml/min Glucose (74-106) mg/dL POC Glucose 151 H 106 92 (60-110) mg/dL Calcium (8.5-10.1) mg/dL Magnesium (1.8-2.4) mg/dL 04/03/20 04/03/20 04/03/20 Range/Units 06:43 06:43 12:26 WBC 6.67 (4.0-11.0) K/uL RBC 4.27 L (4.30-5.90) M/uL Hgb 11.3 L (12.0-16.0) g/dL Hct 35.6 L (36.0-46.0) % MCV 83.4 (80.0-98.0) fL MCH 26.5 L (27.0-32.0) pg MCHC 31.7 (31.0-37.0) g/dL RDW Std Deviation 41.2 (28.0-62.0) fl RDW Coeff of Speedy 14 (11.0-15.0) % Plt Count 121 L (150-400) K/uL MPV 10.20 (7.40-12.00) fL Neut % (Auto) 88.1 H (48.0-80.0) % Lymph % (Auto) 6.1 L (16.0-40.0) % Braxton % (Auto) 3.6 (0.0-15.0) % Eos % (Auto) 2.2 (0.0-7.0) % Baso % (Auto) 0.0 (0.0-1.5) % Neut # (Auto) 5.9 H (1.4-5.7) K/uL Lymph # (Auto) 0.4 L (0.6-2.4) K/uL Braxton # (Auto) 0.2 (0.0-0.8) K/uL Eos # (Auto) 0.2 (0.0-0.7) K/uL Baso # (Auto) 0.0 (0.0-0.1) K/uL Nucleated RBC % 0.0 /100WBC Nucleated RBCs # 0 K/uL Sodium 138 (136-145) mmol/L Potassium 4.7 (3.5-5.1) mmol/L Chloride 101 (98-107) mmol/L Carbon Dioxide 31.6 (21.0-32.0) mmol/L BUN 35 H (7.0-18.0) mg/dL Creatinine 0.8 (0.6-1.0) mg/dL Est Cr Clr Drug Dosing 87.70 mL/min Estimated GFR (MDRD) > 60.0 ml/min Glucose 82 (74-106) mg/dL POC Glucose 119 H (60-110) mg/dL Calcium 8.8 (8.5-10.1) mg/dL Magnesium 2.1 (1.8-2.4) mg/dL Med Orders - Current: Current Medications Acetaminophen (Tylenol) 650 mg PO Q4H PRN PRN Reason: Pain Last Admin: 04/03/20 08:19 Dose: 650 mg Documented by: Albuterol/Ipratropium (Duoneb 3.0-0.5 Mg/3 Ml) 3 ml NEB Q4HRRT PRN PRN Reason: Shortness Of Breath/wheezing Albuterol/Ipratropium (Combivent Respimat) 0 gm INH Q4HRRT PRN PRN Reason: Shortness of Breath Last Admin: 04/02/20 09:54 Dose: 1 puff Documented by: Aspirin (Aspirin) 81 mg PO DAILY [facility] Last Admin: 04/03/20 08:22 Dose: 81 mg Documented by: Atorvastatin Calcium (Lipitor) 80 mg PO BEDTIME [facility] Last Admin: 04/02/20 21:35 Dose: 80 mg Documented by: Benzonatate (Tessalon Perles) 200 mg PO TID PRN PRN Reason: Cough Last Admin: 04/03/20 08:19 Dose: 200 mg Documented by: Carvedilol (Coreg) 12.5 mg PO BID [facility] Last Admin: 04/03/20 11:58 Dose: Not Given Documented by: Clopidogrel Bisulfate (Plavix) 75 mg PO DAILY [facility] Last Admin: 04/03/20 08:20 Dose: 75 mg Documented by: Dextrose/Water (Dextrose 50% In Water) 50 ml IVPUSH ASDIRECTED PRN PRN Reason: Hypoglycemia Enoxaparin Sodium (Lovenox) 40 mg SUBCUT BID [facility] Last Admin: 04/03/20 08:24 Dose: 40 mg Documented by: Fluticasone Propionate (Flovent Hfa 110 Mcg) 0 gm INH BID [facility] Last Admin: 04/03/20 08:23 Dose: 2 puff Documented by: Furosemide (Lasix) 40 mg PO DAILY [facility] Last Admin: 04/03/20 08:21 Dose: 40 mg Documented by: Glucagon (Glucagen) 1 mg IM ASDIRECTED PRN PRN Reason: Hypoglycemia Insulin Aspart (Novolog) 20 unit SUBCUT TIDAC [facility] Last Admin: 04/03/20 12:29 Dose: 20 unit Documented by: Insulin Aspart (Novolog) 0 unit SUBCUT TIDAC [facility]; Protocol Last Admin: 04/03/20 12:28 Dose: Not Given Documented by: Insulin Glargine (Lantus Solostar) 50 units SUBCUT BEDTIME [facility] Last Admin: 04/02/20 21:39 Dose: 50 units Documented by: Nitroglycerin (Nitrostat) 0.4 mg SL .EVERY 5 MINUTES PRN PRN Reason: Chest Pain Nystatin (Nystop) 0 gm TOP TID [facility] Last Admin: 04/03/20 05:59 Dose: Not Given Documented by: Ondansetron HCl (Zofran Odt) 4 mg PO Q4H PRN PRN Reason: nausea, able to take PO Pantoprazole Sodium (Protonix) 40 mg PO DAILY [facility] Last Admin: 04/03/20 08:21 Dose: 40 mg Documented by: Sertraline HCl (Zoloft) 200 mg PO DAILY [facility] Last Admin: 04/03/20 08:21 Dose: 200 mg Documented by: Sodium Chloride (Saline Flush) 10 ml FLUSH ASDIRECTED PRN PRN Reason: Keep Vein Open Last Admin: 03/23/20 19:05 Dose: 10 ml Documented by: Sodium Chloride (Saline Flush) 2.5 ml FLUSH ASDIRECTED PRN PRN Reason: Keep Vein Open Last Admin: 03/23/20 19:05 Dose: 2.5 ml Documented by: Sodium Chloride ([place] Saline Nasal Gel) 0 gm EZE ASDIRECTED PRN PRN Reason: Nasal Dryness Last Admin: 04/01/20 10:13 Dose: 1 each Documented by: Discontinued Medications Acetaminophen (Tylenol) 650 mg PO NOW ONE Stop: 03/23/20 17:51 Last Admin: 03/23/20 19:08 Dose: 650 mg Documented by: Albuterol/Ipratropium (Combivent Respimat) 0 gm INH QID [facility] Last Admin: 03/30/20 12:25 Dose: 1 inhalation Documented by: Dexamethasone (Dexamethasone) 6 mg PO DAILY [facility] Stop: 04/01/20 09:01 Last Admin: 04/01/20 08:32 Dose: 6 mg Documented by: Dextrose/Water (Dextrose 50% In Water) 50 ml IV ASDIRECTED PRN PRN Reason: Hypoglycemia Dextrose/Water (Dextrose 50% In Water) 50 ml IV ASDIRECTED PRN PRN Reason: Hypoglycemia Dextrose/Water (Dextrose 50% In Water) 50 ml IVPUSH ASDIRECTED PRN PRN Reason: Hypoglycemia Dextrose/Water (Dextrose 50% In Water) 50 ml IVPUSH ASDIRECTED PRN PRN Reason: Hypoglycemia Dextrose/Water (Dextrose 50% In Water) 50 ml IV ASDIRECTED PRN PRN Reason: Hypoglycemia Enoxaparin Sodium (Lovenox) 40 mg SUBCUT Q24H [facility] Last Admin: 03/23/20 23:08 Dose: Not Given Documented by: Enoxaparin Sodium (Lovenox) 40 mg SUBCUT BEDTIME [facility] Last Admin: 03/25/20 20:36 Dose: 40 mg Documented by: Fentanyl (Fentanyl) 100 mcg IVPUSH ONETIME ONE Stop: 03/23/20 16:29 Last Admin: 03/23/20 19:06 Dose: Not Given Documented by: Furosemide (Lasix) 20 mg IVPUSH ONETIME ONE Stop: 03/26/20 11:02 Last Admin: 03/26/20 12:43 Dose: 20 mg Documented by: Furosemide (Lasix) 20 mg IVPUSH ONETIME ONE Stop: 04/02/20 13:07 Last Admin: 04/02/20 14:12 Dose: 20 mg Documented by: Glucagon (Glucagen) 1 mg IM ASDIRECTED PRN PRN Reason: Hypoglycemia Glucagon (Glucagen) 1 mg IM ASDIRECTED PRN PRN Reason: Hypoglycemia Glucagon (Glucagen) 1 mg IM ASDIRECTED PRN PRN Reason: Hypoglycemia Glucagon (Glucagen) 1 mg IM ASDIRECTED PRN PRN Reason: Hypoglycemia Glucagon (Glucagen) 1 mg IM ASDIRECTED PRN PRN Reason: Hypoglycemia Sodium Chloride (Normal Saline) 1,000 mls @ 999 mls/hr IV STAT ONE Stop: 03/23/20 19:08 Last Admin: 03/23/20 19:08 Dose: 999 mls/hr Documented by: Levofloxacin/Dextrose 750 mg/ (Premix) 150 mls @ 100 mls/hr IV Q24H [facility] Last Admin: 03/30/20 20:00 Dose: 100 mls/hr Documented by: Insulin Aspart (Novolog) 0 unit SUBCUT TIDAC [facility]; Protocol Last Admin: 03/25/20 13:20 Dose: Not Given Documented by: [facility] Last Admin: 03/24/20 12:34 Dose: Not Given Documented by: Insulin Aspart (Novolog) 15 unit SUBCUT ONETIME ONE Stop: 03/24/20 12:04 Last Admin: 03/24/20 12:16 Dose: 15 units Documented by: Insulin Aspart (Novolog) [facility] Last Admin: 03/25/20 13:21 Dose: Not Given Documented by: Insulin Aspart (Novolog) 15 unit SUBCUT ONETIME ONE Stop: 03/24/20 20:45 Last Admin: 03/24/20 21:05 Dose: 15 unit Documented by: Insulin Aspart (Novolog) 20 unit SUBCUT ONETIME ONE Stop: 03/27/20 21:19 Insulin Aspart (Novolog) 0 unit SUBCUT TIDAC [facility]; Protocol Insulin Aspart (Novolog) 20 unit SUBCUT ONETIME ONE Stop: 03/26/20 21:19 Last Admin: 03/26/20 21:35 Dose: 20 unit Documented by: Insulin Aspart (Novolog) 10 unit SUBCUT ACBREAKFAST ONE Stop: 03/30/20 08:01 Last Admin: 03/30/20 08:14 Dose: Not Given Documented by: Iopamidol (Isovue Multipack-370 (76%)) 100 ml IVPUSH ONETIME ONE Stop: 03/23/20 17:47 Last Admin: 03/23/20 17:46 Dose: 100 ml Documented by: Iopamidol (Isovue Multipack-370 (76%)) 100 ml IVPUSH ONETIME STA Stop: 03/27/20 12:52 Last Admin: 03/27/20 12:52 Dose: 100 ml Documented by: Iopamidol (Isovue Multipack-370 (76%)) 100 ml IVPUSH ONETIME STA Stop: 03/27/20 14:06 Last Admin: 03/27/20 21:46 Dose: Not Given Documented by: - Exam Quality Assessment: Supplemental Oxygen General: Alert, Oriented, Cooperative, No Acute Distress Neck: Supple Lungs: Normal Respiratory Effort, Decreased Breath Sounds, Rales Cardiovascular: Regular Rate, Regular Rhythm GI/Abdominal Exam: Normal Bowel Sounds, Soft, Non-Tender Sepsis Event Note - Evaluation Sepsis Screening Result: No Definite Risk - Focused Exam Vital Signs: Vital Signs Temp Pulse Resp BP Pulse Ox 04/03/20 08:27 35.9 C L 88 20 97/66 99 04/03/20 04:30 36.2 C 75 20 105/54 L 95 - Problem List & Annotations (1) COVID-19 SNOMED Code(s): 885842513 Code(s): U07.1 - COVID-19 Status: Acute Current Visit: Yes (2) History of CVA (cerebrovascular accident) SNOMED Code(s): 766594313 Code(s): Z86.73 - PRSNL HX OF TIA (TIA), AND CEREB INFRC W/O RESID DEFICITS Status: Acute Current Visit: Yes (3) Orthostatic hypotension SNOMED Code(s): 34222955 Code(s): I95.1 - ORTHOSTATIC HYPOTENSION Status: Acute Current Visit: Yes (4) Syncope SNOMED Code(s): 392572489 Code(s): R55 - SYNCOPE AND COLLAPSE Status: Acute Current Visit: Yes Qualifiers: Syncope type: unspecified Qualified Code(s): R55 - Syncope and collapse (5) CORNELIA (acute kidney injury) SNOMED Code(s): 57379239, 75150361 Code(s): N17.9 - ACUTE KIDNEY FAILURE, UNSPECIFIED Status: Resolved Current Visit: Yes (6) Chest pain, rule out acute myocardial infarction SNOMED Code(s): 44075356 Code(s): R07.9 - CHEST PAIN, UNSPECIFIED Status: Resolved Current Visit: Yes (7) (HFpEF) heart failure with preserved ejection fraction SNOMED Code(s): 679017974 Code(s): I50.30 - UNSPECIFIED DIASTOLIC (CONGESTIVE) HEART FAILURE Status: Acute Current Visit: No Qualifiers: Heart failure chronicity: acute on chronic Qualified Code(s): I50.33 - Acute on chronic diastolic (congestive) heart failure (8) Acute coronary syndrome SNOMED Code(s): 364958785 Code(s): I24.9 - ACUTE ISCHEMIC HEART DISEASE, UNSPECIFIED Status: Acute Current Visit: No (9) Acute respiratory failure with hypoxia SNOMED Code(s): 15485606, 540776948 Code(s): J96.01 - ACUTE RESPIRATORY FAILURE WITH HYPOXIA Status: Acute Current Visit: No - Problem List Review Problem List Initiated/Reviewed/Updated: Yes - My Orders Last 24 Hours: My Active Orders 04/02/20 13:05 Flutter Valve Therapy [RT Chest Physiotherapy] [RC] ASDIRECTED - Plan Plan:: This 49-year-old female admitted with multiple syncopal episodes at home with weakness shortness of breath 1. COVID-19 pneumonia with acute hypoxic respiratory failure - Some improvement in dizziness - Oxygen needs continue at 10 L today, wean off as able. -Completed course of dexamethasone and Levaquin - Oxygen therapy to keep sats greater than 92%, wean as possible - Encouraged proning or at least left lateral decubitus position. - IS and flutter - Combivent inhaler every 4 hours as needed dyspnea - Guaifenesin with codeine as needed cough along with Tessalon Perles - AYR nasal saline gel for nasal dryness. Educated on not using Vaseline to nares while on oxygen. - Reenforced importance of proning, and frequent ICS 2. HFpEF/CAD/hypertension/CVA/Carotid stenosis - Daily weights strict I's and O's - Restart Lasix 40 mg PO today, negative balance today - Continue carvedilol 12.5 mg twice daily - Holding amlodipine and lisinopril due to orthostatic hypotension - Continue aspirin and Plavix - Continue statin and Zetia 3. Dm Type 2 - Blood sugars continue to be well controlled - NovoLog 20 units with each meal, plus SSI - Lantus 50 units subcutaneously in the evening VTE prophylaxis: Lovenox twice daily CODE STATUS: FULL CODE Dispo: 2 to 3 days pending improvement.
[2020-04-03] MEDS: atorvaSTATin 40 MG Tab PO SCH (20:59)
[2020-04-03] MEDS: Insulin Glargine,Human Rec. Analog 100 Units/ML 3 ML Pen SUBCUT SCH (21:04)
[2020-04-04] MEDS: Insulin Aspart 100 Units/ML 3 ML Pen SUBCUT SCH ×6 (06:44→18:10)
[2020-04-04 06:56] LABS: BLOOD UREA NITROGEN,BUN 35 mg/dL (7.0-18.0); CARBON DIOXIDE,CO2 33.7 mmol/L (21.0-32.0); CHLORIDE,CL 101 mmol/L (98-107); GLUCOSE RANDOM 72 mg/dL (74-106); POTASSIUM,K 4.1 mmol/L (3.5-5.1); SODIUM,NA 138 mmol/L (136-145)
[2020-04-04] MEDS: Acetaminophen 325 MG Tab PO PRN ×2 (09:28→21:04)
[2020-04-04] MEDS: Benzonatate 100 MG Cap PO PRN ×2 (09:29→21:03)
[2020-04-04] MEDS: Clopidogrel 75 MG Tab PO SCH (09:29)
[2020-04-04] MEDS: Pantoprazole 40 MG Tab.CR PO SCH (09:30)
[2020-04-04] MEDS: Furosemide 40 MG Tab PO SCH (09:30)
[2020-04-04] MEDS: Aspirin 81 MG Tab.Chew PO SCH (09:30)
[2020-04-04] MEDS: Sertraline 100 MG Tab PO SCH (09:34)
[2020-04-04] MEDS: Nystatin Topical Powder 15 GM Bottle TOP SCH ×3 (09:36→21:23)
[2020-04-04] MEDS: Fluticasone Propionate 110 MCG/Puff 12 GM Inhaler INH SCH ×2 (09:37→21:02)
[2020-04-04] MEDS: Carvedilol 12.5 MG Tab PO SCH (11:24)
[2020-04-04] MEDS: Carvedilol 6.25 MG Tab PO SCH ×2 (11:25→21:04)
[2020-04-04] MEDS: Enoxaparin 40 MG/0.4 ML Syringe SUBCUT SCH ×2 (11:26→21:03)
--- NOTE | 2020-04-04 12:34 | PCM.PN ---
- General Info Date of Service: 04/04/20 Admission Dx/Problem (Free Text): Admission Diagnosis/Problem Admission Diagnosis/Problem COVID 19 pneumonia, acute hypoxic respiratory failure, syncope Subjective Update: sitting in chair, feels much better, oxygen requirement has improved significantly Functional Status: Reports: Pain Controlled, Tolerating Diet, Ambulating, Urinating - Review of Systems General: Denies: Fever, Weakness, Fatigue Pulmonary: Reports: Shortness of Breath. Denies: Pleuritic Chest Pain, Cough Cardiovascular: Reports: Dyspnea on Exertion. Denies: Chest Pain, Palpitations Gastrointestinal: Denies: Abdominal Pain, Constipation, Decreased Appetite Genitourinary: Denies: Dysuria, Frequency, Burning - Patient Data Vitals - Most Recent: Last Vital Signs Temp 36.2 C 04/04/20 11:22 Pulse 76 04/04/20 11:25 Resp 18 04/04/20 11:22 BP 113/64 04/04/20 11:25 Pulse Ox 98 04/04/20 11:22 Orthostatic Blood Pressure [ 102/46 Standing] Orthostatic Blood Pressure [ 100/62 Sitting] Orthostatic Blood Pressure [ 121/65 Supine] Weight - Most Recent: 133.6 kg I&O - Last 24 Hours: Intake & Output 04/03/20 04/04/20 04/04/20 22:59 06:59 14:59 Intake Total 1000 1070 Output Total 1200 1900 Balance -200 -830 Lab Results Last 24 Hours: Laboratory Results - last 24 hr 04/03/20 04/04/20 04/04/20 Range/Units 17:32 05:52 05:52 WBC 4.62 (4.0-11.0) K/uL RBC 3.99 L (4.30-5.90) M/uL Hgb 10.5 L (12.0-16.0) g/dL Hct 33.5 L (36.0-46.0) % MCV 84.0 (80.0-98.0) fL MCH 26.3 L (27.0-32.0) pg MCHC 31.3 (31.0-37.0) g/dL RDW Std Deviation 41.4 (28.0-62.0) fl RDW Coeff of Speedy 14 (11.0-15.0) % Plt Count 114 L (150-400) K/uL MPV 10.00 (7.40-12.00) fL Neut % (Auto) 79.7 (48.0-80.0) % Lymph % (Auto) 9.5 L (16.0-40.0) % [place] % (Auto) 6.5 (0.0-15.0) % Eos % (Auto) 4.1 (0.0-7.0) % Baso % (Auto) 0.2 (0.0-1.5) % Neut # (Auto) 3.7 (1.4-5.7) K/uL Lymph # (Auto) 0.4 L (0.6-2.4) K/uL [place] # (Auto) 0.3 (0.0-0.8) K/uL Eos # (Auto) 0.2 (0.0-0.7) K/uL Baso # (Auto) 0.0 (0.0-0.1) K/uL Nucleated RBC % 0.0 /100WBC Nucleated RBCs # 0 K/uL Sodium 138 (136-145) mmol/L Potassium 4.1 (3.5-5.1) mmol/L Chloride 101 (98-107) mmol/L Carbon Dioxide 33.7 H (21.0-32.0) mmol/L BUN 35 H (7.0-18.0) mg/dL Creatinine 0.9 (0.6-1.0) mg/dL Est Cr Clr Drug Dosing 77.95 mL/min Estimated GFR (MDRD) > 60.0 ml/min Glucose 72 L (74-106) mg/dL POC Glucose 106 (60-110) mg/dL Calcium 8.4 L (8.5-10.1) mg/dL Phosphorus 4.2 (2.6-4.7) mg/dL Magnesium 2.2 (1.8-2.4) mg/dL Total Bilirubin 0.3 (0.2-1.0) mg/dL AST 18 (15-37) IU/L ALT 21 (14-63) IU/L Alkaline Phosphatase 73 (46-116) U/L Total Protein 6.5 (6.4-8.2) g/dL Albumin 2.0 L (3.4-5.0) g/dL Globulin 4.5 H (2.6-4.0) g/dL Albumin/Globulin Ratio 0.4 L (0.9-1.6) 04/04/20 04/04/20 Range/Units 06:39 12:28 WBC (4.0-11.0) K/uL RBC (4.30-5.90) M/uL Hgb (12.0-16.0) g/dL Hct (36.0-46.0) % MCV (80.0-98.0) fL MCH (27.0-32.0) pg MCHC (31.0-37.0) g/dL RDW Std Deviation (28.0-62.0) fl RDW Coeff of Speedy (11.0-15.0) % Plt Count (150-400) K/uL MPV (7.40-12.00) fL Neut % (Auto) (48.0-80.0) % Lymph % (Auto) (16.0-40.0) % [place] % (Auto) (0.0-15.0) % Eos % (Auto) (0.0-7.0) % Baso % (Auto) (0.0-1.5) % Neut # (Auto) (1.4-5.7) K/uL Lymph # (Auto) (0.6-2.4) K/uL [place] # (Auto) (0.0-0.8) K/uL Eos # (Auto) (0.0-0.7) K/uL Baso # (Auto) (0.0-0.1) K/uL Nucleated RBC % /100WBC Nucleated RBCs # K/uL Sodium (136-145) mmol/L Potassium (3.5-5.1) mmol/L Chloride (98-107) mmol/L Carbon Dioxide (21.0-32.0) mmol/L BUN (7.0-18.0) mg/dL Creatinine (0.6-1.0) mg/dL Est Cr Clr Drug Dosing mL/min Estimated GFR (MDRD) ml/min Glucose (74-106) mg/dL POC Glucose 84 98 (60-110) mg/dL Calcium (8.5-10.1) mg/dL Phosphorus (2.6-4.7) mg/dL Magnesium (1.8-2.4) mg/dL Total Bilirubin (0.2-1.0) mg/dL AST (15-37) IU/L ALT (14-63) IU/L Alkaline Phosphatase (46-116) U/L Total Protein (6.4-8.2) g/dL Albumin (3.4-5.0) g/dL Globulin (2.6-4.0) g/dL Albumin/Globulin Ratio (0.9-1.6) Med Orders - Current: Current Medications Acetaminophen (Tylenol) 650 mg PO Q4H PRN PRN Reason: Pain Last Admin: 04/04/20 09:28 Dose: 650 mg Documented by: Albuterol/Ipratropium (Duoneb 3.0-0.5 Mg/3 Ml) 3 ml NEB Q4HRRT PRN PRN Reason: Shortness Of Breath/wheezing Albuterol/Ipratropium (Combivent Respimat) 0 gm INH Q4HRRT PRN PRN Reason: Shortness of Breath Last Admin: 04/02/20 09:54 Dose: 1 puff Documented by: Aspirin (Aspirin) 81 mg PO DAILY [facility] Last Admin: 04/04/20 09:30 Dose: 81 mg Documented by: Atorvastatin Calcium (Lipitor) 80 mg PO BEDTIME [facility] Last Admin: 04/03/20 20:59 Dose: 80 mg Documented by: Benzonatate (Tessalon Perles) 200 mg PO TID PRN PRN Reason: Cough Last Admin: 04/04/20 09:29 Dose: 200 mg Documented by: Carvedilol (Coreg) 6.25 mg PO BID [facility] Last Admin: 04/04/20 11:25 Dose: 6.25 mg Documented by: Clopidogrel Bisulfate (Plavix) 75 mg PO DAILY [facility] Last Admin: 04/04/20 09:29 Dose: 75 mg Documented by: Dextrose/Water (Dextrose 50% In Water) 50 ml IVPUSH ASDIRECTED PRN PRN Reason: Hypoglycemia Enoxaparin Sodium (Lovenox) 40 mg SUBCUT BID [facility] Last Admin: 04/04/20 11:26 Dose: 40 mg Documented by: Fluticasone Propionate (Flovent Hfa 110 Mcg) 0 gm INH BID [facility] Last Admin: 04/04/20 09:37 Dose: 1 puff Documented by: Furosemide (Lasix) 40 mg PO DAILY [facility] Last Admin: 04/04/20 09:30 Dose: 40 mg Documented by: Glucagon (Glucagen) 1 mg IM ASDIRECTED PRN PRN Reason: Hypoglycemia Insulin Aspart (Novolog) 20 unit SUBCUT TIDAC [facility] Last Admin: 04/04/20 12:30 Dose: 20 unit Documented by: Insulin Aspart (Novolog) 0 unit SUBCUT TIDAC [facility]; Protocol Last Admin: 04/04/20 12:30 Dose: Not Given Documented by: Insulin Glargine (Lantus Solostar) 50 units SUBCUT BEDTIME [facility] Last Admin: 04/03/20 21:04 Dose: 50 units Documented by: Nitroglycerin (Nitrostat) 0.4 mg SL .EVERY 5 MINUTES PRN PRN Reason: Chest Pain Nystatin (Nystop) 0 gm TOP TID [facility] Last Admin: 04/04/20 09:36 Dose: 1 applic Documented by: Ondansetron HCl (Zofran Odt) 4 mg PO Q4H PRN PRN Reason: nausea, able to take PO Pantoprazole Sodium (Protonix) 40 mg PO DAILY [facility] Last Admin: 04/04/20 09:30 Dose: 40 mg Documented by: Sertraline HCl (Zoloft) 200 mg PO DAILY [facility] Last Admin: 04/04/20 09:34 Dose: Not Given Documented by: Sodium Chloride (Saline Flush) 10 ml FLUSH ASDIRECTED PRN PRN Reason: Keep Vein Open Last Admin: 03/23/20 19:05 Dose: 10 ml Documented by: Sodium Chloride (Saline Flush) 2.5 ml FLUSH ASDIRECTED PRN PRN Reason: Keep Vein Open Last Admin: 03/23/20 19:05 Dose: 2.5 ml Documented by: Sodium Chloride ([place] Saline Nasal Gel) 0 gm EZE ASDIRECTED PRN PRN Reason: Nasal Dryness Last Admin: 04/01/20 10:13 Dose: 1 each Documented by: Discontinued Medications Acetaminophen (Tylenol) 650 mg PO NOW ONE Stop: 03/23/20 17:51 Last Admin: 03/23/20 19:08 Dose: 650 mg Documented by: Albuterol/Ipratropium (Combivent Respimat) 0 gm INH QID [facility] Last Admin: 03/30/20 12:25 Dose: 1 inhalation Documented by: Carvedilol (Coreg) 12.5 mg PO BID [facility] Last Admin: 04/04/20 11:24 Dose: Not Given Documented by: Dexamethasone (Dexamethasone) 6 mg PO DAILY [facility] Stop: 04/01/20 09:01 Last Admin: 04/01/20 08:32 Dose: 6 mg Documented by: Dextrose/Water (Dextrose 50% In Water) 50 ml IV ASDIRECTED PRN PRN Reason: Hypoglycemia Dextrose/Water (Dextrose 50% In Water) 50 ml IV ASDIRECTED PRN PRN Reason: Hypoglycemia Dextrose/Water (Dextrose 50% In Water) 50 ml IVPUSH ASDIRECTED PRN PRN Reason: Hypoglycemia Dextrose/Water (Dextrose 50% In Water) 50 ml IVPUSH ASDIRECTED PRN PRN Reason: Hypoglycemia Dextrose/Water (Dextrose 50% In Water) 50 ml IV ASDIRECTED PRN PRN Reason: Hypoglycemia Enoxaparin Sodium (Lovenox) 40 mg SUBCUT Q24H [facility] Last Admin: 03/23/20 23:08 Dose: Not Given Documented by: Enoxaparin Sodium (Lovenox) 40 mg SUBCUT BEDTIME [facility] Last Admin: 03/25/20 20:36 Dose: 40 mg Documented by: Fentanyl (Fentanyl) 100 mcg IVPUSH ONETIME ONE Stop: 03/23/20 16:29 Last Admin: 03/23/20 19:06 Dose: Not Given Documented by: Furosemide (Lasix) 20 mg IVPUSH ONETIME ONE Stop: 03/26/20 11:02 Last Admin: 03/26/20 12:43 Dose: 20 mg Documented by: Furosemide (Lasix) 20 mg IVPUSH ONETIME ONE Stop: 04/02/20 13:07 Last Admin: 04/02/20 14:12 Dose: 20 mg Documented by: Glucagon (Glucagen) 1 mg IM ASDIRECTED PRN PRN Reason: Hypoglycemia Glucagon (Glucagen) 1 mg IM ASDIRECTED PRN PRN Reason: Hypoglycemia Glucagon (Glucagen) 1 mg IM ASDIRECTED PRN PRN Reason: Hypoglycemia Glucagon (Glucagen) 1 mg IM ASDIRECTED PRN PRN Reason: Hypoglycemia Glucagon (Glucagen) 1 mg IM ASDIRECTED PRN PRN Reason: Hypoglycemia Sodium Chloride (Normal Saline) 1,000 mls @ 999 mls/hr IV STAT ONE Stop: 03/23/20 19:08 Last Admin: 03/23/20 19:08 Dose: 999 mls/hr Documented by: Levofloxacin/Dextrose 750 mg/ (Premix) 150 mls @ 100 mls/hr IV Q24H [facility] Last Admin: 03/30/20 20:00 Dose: 100 mls/hr Documented by: Insulin Aspart (Novolog) 0 unit SUBCUT TIDAC [facility]; Protocol Last Admin: 03/25/20 13:20 Dose: Not Given Documented by: Insulin Aspart (Novolog) 4 unit SUBCUT TIDAC [facility] Last Admin: 03/24/20 12:34 Dose: Not Given Documented by: Insulin Aspart (Novolog) 15 unit SUBCUT ONETIME ONE Stop: 03/24/20 12:04 Last Admin: 03/24/20 12:16 Dose: 15 units Documented by: Insulin Aspart (Novolog) 8 unit SUBCUT TIDAC [facility] Last Admin: 03/25/20 13:21 Dose: Not Given Documented by: Insulin Aspart (Novolog) 15 unit SUBCUT ONETIME ONE Stop: 03/24/20 20:45 Last Admin: 03/24/20 21:05 Dose: 15 unit Documented by: Insulin Aspart (Novolog) 20 unit SUBCUT ONETIME ONE Stop: 03/27/20 21:19 [facility] Insulin Aspart (Novolog) 20 unit SUBCUT ONETIME ONE Stop: 03/26/20 21:19 Last Admin: 03/26/20 21:35 Dose: 20 unit Documented by: Insulin Aspart (Novolog) 10 unit SUBCUT ACBREAKFAST ONE Stop: 03/30/20 08:01 Last Admin: 03/30/20 08:14 Dose: Not Given Documented by: Iopamidol (Isovue Multipack-370 (76%)) 100 ml IVPUSH ONETIME ONE Stop: 03/23/20 17:47 Last Admin: 03/23/20 17:46 Dose: 100 ml Documented by: Iopamidol (Isovue Multipack-370 (76%)) 100 ml IVPUSH ONETIME STA Stop: 03/27/20 12:52 Last Admin: 03/27/20 12:52 Dose: 100 ml Documented by: Iopamidol (Isovue Multipack-370 (76%)) 100 ml IVPUSH ONETIME STA Stop: 03/27/20 14:06 Last Admin: 03/27/20 21:46 Dose: Not Given Documented by: - Exam Quality Assessment: Supplemental Oxygen General: Alert, Oriented, Cooperative Neck: Supple Lungs: Normal Respiratory Effort, Decreased Breath Sounds (improved), Rales Cardiovascular: Regular Rate, Regular Rhythm, No Murmurs GI/Abdominal Exam: Normal Bowel Sounds, Soft, Non-Tender Sepsis Event Note - Evaluation Sepsis Screening Result: No Definite Risk - Focused Exam Vital Signs: Vital Signs Temp Pulse Pulse Resp BP BP Pulse Ox 04/04/20 11:25 76 113/64 04/04/20 11:22 36.2 C 76 18 113/64 98 04/04/20 09:00 36.4 C 76 20 98/65 100 04/04/20 05:16 98 04/04/20 04:45 20 94 L 04/04/20 04:40 20 79 L 04/04/20 04:32 36.1 C 78 20 98/54 L 98 04/04/20 01:00 19 98 - Problem List & Annotations (1) COVID-19 SNOMED Code(s): 601003325 Code(s): U07.1 - COVID-19 Status: Acute Current Visit: Yes (2) History of CVA (cerebrovascular accident) SNOMED Code(s): 953721676 Code(s): Z86.73 - PRSNL HX OF TIA (TIA), AND CEREB INFRC W/O RESID DEFICITS Status: Acute Current Visit: Yes (3) Orthostatic hypotension SNOMED Code(s): 53035638 Code(s): I95.1 - ORTHOSTATIC HYPOTENSION Status: Acute Current Visit: Yes (4) Syncope SNOMED Code(s): 688015487 Code(s): R55 - SYNCOPE AND COLLAPSE Status: Acute Current Visit: Yes Qualifiers: Syncope type: unspecified Qualified Code(s): R55 - Syncope and collapse (5) CORNELIA (acute kidney injury) SNOMED Code(s): 87910417, 56220160 Code(s): N17.9 - ACUTE KIDNEY FAILURE, UNSPECIFIED Status: Resolved Current Visit: Yes (6) Chest pain, rule out acute myocardial infarction SNOMED Code(s): 90291154 Code(s): R07.9 - CHEST PAIN, UNSPECIFIED Status: Resolved Current Visit: Yes (7) (HFpEF) heart failure with preserved ejection fraction SNOMED Code(s): 039834666 Code(s): I50.30 - UNSPECIFIED DIASTOLIC (CONGESTIVE) HEART FAILURE Status: Acute Current Visit: No Qualifiers: Heart failure chronicity: acute on chronic Qualified Code(s): I50.33 - Acute on chronic diastolic (congestive) heart failure (8) Acute coronary syndrome SNOMED Code(s): 303815626 Code(s): I24.9 - ACUTE ISCHEMIC HEART DISEASE, UNSPECIFIED Status: Acute Current Visit: No (9) Acute respiratory failure with hypoxia SNOMED Code(s): 72789085, 568877285 Code(s): J96.01 - ACUTE RESPIRATORY FAILURE WITH HYPOXIA Status: Acute Current Visit: No - Problem List Review Problem List Initiated/Reviewed/Updated: Yes - Plan Plan:: This 49-year-old female admitted with multiple syncopal episodes at home with weakness shortness of breath 1. COVID-19 pneumonia with acute hypoxic respiratory failure - Some improvement in dizziness - Oxygen requirement has improved to 5 lts. -Completed course of dexamethasone and Levaquin - Oxygen therapy to keep sats greater than 92%, wean as possible - Encouraged proning or at least left lateral decubitus position. - IS and flutter - Combivent inhaler every 4 hours as needed dyspnea - Guaifenesin with codeine as needed cough along with Tessalon Perles - AYR nasal saline gel for nasal dryness. Educated on not using Vaseline to nares while on oxygen. - Reenforced importance of proning, and frequent ICS -Pelsor of BiPAP today for few hours 2. HFpEF/CAD/hypertension/CVA/Carotid stenosis - Daily weights strict I's and O's - Restart Lasix 40 mg PO today, negative balance today - decrease dose of carvedilol secondary to soft pressures - Holding amlodipine and lisinopril due to orthostatic hypotension - Continue aspirin and Plavix - Continue statin and Zetia 3. Dm Type 2 - Blood sugars continue to be well controlled - NovoLog 20 units with each meal, plus SSI - Lantus 50 units subcutaneously in the evening VTE prophylaxis: Lovenox twice daily CODE STATUS: FULL CODE Dispo: 2 to 3 days pending improvement.
[2020-04-04] MEDS: Albuterol/Ipratropium 4 GM Inhalation Spray INH PRN (21:02)
[2020-04-04] MEDS: atorvaSTATin 40 MG Tab PO SCH (21:04)
[2020-04-04] MEDS: Insulin Glargine,Human Rec. Analog 100 Units/ML 3 ML Pen SUBCUT SCH (21:11)
[2020-04-05] MEDS: Nystatin Topical Powder 15 GM Bottle TOP SCH ×3 (05:29→21:54)
[2020-04-05 07:34] LABS: BLOOD UREA NITROGEN,BUN 31 mg/dL (7.0-18.0); CARBON DIOXIDE,CO2 31.8 mmol/L (21.0-32.0); CHLORIDE,CL 102 mmol/L (98-107); GLUCOSE RANDOM 124 mg/dL (74-106); POTASSIUM,K 4.3 mmol/L (3.5-5.1); SODIUM,NA 137 mmol/L (136-145)
[2020-04-05] MEDS: Clopidogrel 75 MG Tab PO SCH (08:30)
[2020-04-05] MEDS: Furosemide 40 MG Tab PO SCH (08:30)
[2020-04-05] MEDS: Aspirin 81 MG Tab.Chew PO SCH (08:30)
[2020-04-05] MEDS: Carvedilol 6.25 MG Tab PO SCH ×2 (08:30→20:47)
[2020-04-05] MEDS: Benzonatate 100 MG Cap PO PRN ×2 (08:30→20:47)
[2020-04-05] MEDS: Pantoprazole 40 MG Tab.CR PO SCH (08:31)
[2020-04-05] MEDS: Acetaminophen 325 MG Tab PO PRN ×3 (08:31→20:47)
[2020-04-05] MEDS: Enoxaparin 40 MG/0.4 ML Syringe SUBCUT SCH ×2 (08:31→20:47)
[2020-04-05] MEDS: Insulin Aspart 100 Units/ML 3 ML Pen SUBCUT SCH ×6 (08:33→18:08)
[2020-04-05] MEDS: Sertraline 100 MG Tab PO SCH (08:40)
[2020-04-05] MEDS: Fluticasone Propionate 110 MCG/Puff 12 GM Inhaler INH SCH ×2 (08:40→20:51)
--- NOTE | 2020-04-05 13:07 | PCM.PN ---
- General Info Date of Service: 04/05/20 Admission Dx/Problem (Free Text): Admission Diagnosis/Problem Admission Diagnosis/Problem COVID 19 pneumonia, acute hypoxic respiratory failure, syncope Subjective Update: sitting in chair, feels much better, oxygen requirement has improved significantly Functional Status: Reports: Tolerating Diet, Ambulating, Urinating - Review of Systems General: Reports: Fever, Weakness, Fatigue Pulmonary: Denies: Shortness of Breath, Cough, Sputum, Hemoptysis, Wheezing Cardiovascular: Reports: Dyspnea on Exertion. Denies: Chest Pain, Palpitations Gastrointestinal: Denies: Abdominal Pain, Constipation, Decreased Appetite, Diarrhea Musculoskeletal: Denies: Neck Pain, Shoulder Pain, Arm Pain, Hand Pain Skin: Denies: Cyanosis, Jaundice, Mottled, Pallor Neurological: Denies: Confusion, Dizziness, Headache, Numbness - Patient Data Vitals - Most Recent: Last Vital Signs Temp 36.0 C L 04/05/20 12:00 Pulse 79 04/05/20 12:00 Resp 18 04/05/20 12:00 BP 104/70 04/05/20 12:00 Pulse Ox 95 04/05/20 12:00 Orthostatic Blood Pressure [ 102/46 Standing] Orthostatic Blood Pressure [ 100/62 Sitting] Orthostatic Blood Pressure [ 121/65 Supine] Weight - Most Recent: 133.447 kg I&O - Last 24 Hours: Intake & Output 04/04/20 04/05/20 04/05/20 22:59 06:59 14:59 Intake Total 1410 800 Output Total 1150 1900 Balance 260 -1100 Lab Results Last 24 Hours: Laboratory Results - last 24 hr 04/04/20 04/04/20 04/05/20 Range/Units 17:42 20:59 06:21 WBC (4.0-11.0) K/uL RBC (4.30-5.90) M/uL Hgb (12.0-16.0) g/dL Hct (36.0-46.0) % MCV (80.0-98.0) fL MCH (27.0-32.0) pg MCHC (31.0-37.0) g/dL RDW Std Deviation (28.0-62.0) fl RDW Coeff of Speedy (11.0-15.0) % Plt Count (150-400) K/uL MPV (7.40-12.00) fL Neut % (Auto) (48.0-80.0) % Lymph % (Auto) (16.0-40.0) % [place] % (Auto) (0.0-15.0) % Eos % (Auto) (0.0-7.0) % Baso % (Auto) (0.0-1.5) % Neut # (Auto) (1.4-5.7) K/uL Lymph # (Auto) (0.6-2.4) K/uL [place] # (Auto) (0.0-0.8) K/uL Eos # (Auto) (0.0-0.7) K/uL Baso # (Auto) (0.0-0.1) K/uL Nucleated RBC % /100WBC Nucleated RBCs # K/uL Sodium (136-145) mmol/L Potassium (3.5-5.1) mmol/L Chloride (98-107) mmol/L Carbon Dioxide (21.0-32.0) mmol/L BUN (7.0-18.0) mg/dL Creatinine (0.6-1.0) mg/dL Est Cr Clr Drug Dosing mL/min Estimated GFR (MDRD) ml/min Glucose (74-106) mg/dL POC Glucose 58 L 149 H 129 H (60-110) mg/dL Calcium (8.5-10.1) mg/dL Total Bilirubin (0.2-1.0) mg/dL AST (15-37) IU/L ALT (14-63) IU/L Alkaline Phosphatase (46-116) U/L Total Protein (6.4-8.2) g/dL Albumin (3.4-5.0) g/dL Globulin (2.6-4.0) g/dL Albumin/Globulin Ratio (0.9-1.6) 04/05/20 04/05/20 04/05/20 Range/Units 06:25 06:25 12:09 WBC 4.63 (4.0-11.0) K/uL RBC 3.82 L (4.30-5.90) M/uL Hgb 10.2 L (12.0-16.0) g/dL Hct 32.3 L (36.0-46.0) % MCV 84.6 (80.0-98.0) fL MCH 26.7 L (27.0-32.0) pg MCHC 31.6 (31.0-37.0) g/dL RDW Std Deviation 41.8 (28.0-62.0) fl RDW Coeff of Speedy 14 (11.0-15.0) % Plt Count 125 L (150-400) K/uL MPV 10.00 (7.40-12.00) fL Neut % (Auto) 79.2 (48.0-80.0) % Lymph % (Auto) 8.9 L (16.0-40.0) % [place] % (Auto) 8.2 (0.0-15.0) % Eos % (Auto) 3.7 (0.0-7.0) % Baso % (Auto) 0.0 (0.0-1.5) % Neut # (Auto) 3.7 (1.4-5.7) K/uL Lymph # (Auto) 0.4 L (0.6-2.4) K/uL [place] # (Auto) 0.4 (0.0-0.8) K/uL Eos # (Auto) 0.2 (0.0-0.7) K/uL Baso # (Auto) 0.0 (0.0-0.1) K/uL Nucleated RBC % 0.0 /100WBC Nucleated RBCs # 0 K/uL Sodium 137 (136-145) mmol/L Potassium 4.3 (3.5-5.1) mmol/L Chloride 102 (98-107) mmol/L Carbon Dioxide 31.8 (21.0-32.0) mmol/L BUN 31 H (7.0-18.0) mg/dL Creatinine 0.9 (0.6-1.0) mg/dL Est Cr Clr Drug Dosing 77.95 mL/min Estimated GFR (MDRD) > 60.0 ml/min Glucose 124 H (74-106) mg/dL POC Glucose 132 H (60-110) mg/dL Calcium 8.3 L (8.5-10.1) mg/dL Total Bilirubin 0.3 (0.2-1.0) mg/dL AST 19 (15-37) IU/L ALT 23 (14-63) IU/L Alkaline Phosphatase 76 (46-116) U/L Total Protein 6.4 (6.4-8.2) g/dL Albumin 2.0 L (3.4-5.0) g/dL Globulin 4.4 H (2.6-4.0) g/dL Albumin/Globulin Ratio 0.5 L (0.9-1.6) Med Orders - Current: Current Medications Acetaminophen (Tylenol) 650 mg PO Q4H PRN PRN Reason: Pain Last Admin: 04/05/20 08:31 Dose: 650 mg Documented by: Albuterol/Ipratropium (Duoneb 3.0-0.5 Mg/3 Ml) 3 ml NEB Q4HRRT PRN PRN Reason: Shortness Of Breath/wheezing Albuterol/Ipratropium (Combivent Respimat) 0 gm INH Q4HRRT PRN PRN Reason: Shortness of Breath Last Admin: 04/04/20 21:02 Dose: 1 puff Documented by: Aspirin (Aspirin) 81 mg PO DAILY [facility] Last Admin: 04/05/20 08:30 Dose: 81 mg Documented by: Atorvastatin Calcium (Lipitor) 80 mg PO BEDTIME [facility] Last Admin: 04/04/20 21:04 Dose: 80 mg Documented by: Benzonatate (Tessalon Perles) 200 mg PO TID PRN PRN Reason: Cough Last Admin: 04/05/20 08:30 Dose: 200 mg Documented by: Carvedilol (Coreg) 6.25 mg PO BID [facility] Last Admin: 04/05/20 08:30 Dose: 6.25 mg Documented by: Clopidogrel Bisulfate (Plavix) 75 mg PO DAILY [facility] Last Admin: 04/05/20 08:30 Dose: 75 mg Documented by: Dextrose/Water (Dextrose 50% In Water) 50 ml IVPUSH ASDIRECTED PRN PRN Reason: Hypoglycemia Enoxaparin Sodium (Lovenox) 40 mg SUBCUT BID [facility] Last Admin: 04/05/20 08:31 Dose: 40 mg Documented by: Fluticasone Propionate (Flovent Hfa 110 Mcg) 0 gm INH BID [facility] Last Admin: 04/05/20 08:40 Dose: 1 puff Documented by: Furosemide (Lasix) 40 mg PO DAILY [facility] Last Admin: 04/05/20 08:30 Dose: 40 mg Documented by: Glucagon (Glucagen) 1 mg IM ASDIRECTED PRN PRN Reason: Hypoglycemia Insulin Aspart (Novolog) 20 unit SUBCUT TIDAC [facility] Last Admin: 04/05/20 12:15 Dose: 20 unit Documented by: Insulin Aspart (Novolog) 0 unit SUBCUT TIDAC [facility]; Protocol Last Admin: 04/05/20 12:16 Dose: Not Given Documented by: Insulin Glargine (Lantus Solostar) 50 units SUBCUT BEDTIME [facility] Last Admin: 04/04/20 21:11 Dose: Not Given Documented by: Nitroglycerin (Nitrostat) 0.4 mg SL .EVERY 5 MINUTES PRN PRN Reason: Chest Pain Nystatin (Nystop) 0 gm TOP TID [facility] Last Admin: 04/05/20 05:29 Dose: Not Given Documented by: Ondansetron HCl (Zofran Odt) 4 mg PO Q4H PRN PRN Reason: nausea, able to take PO Pantoprazole Sodium (Protonix) 40 mg PO DAILY [facility] Last Admin: 04/05/20 08:31 Dose: 40 mg Documented by: Sertraline HCl (Zoloft) 200 mg PO DAILY [facility] Last Admin: 04/05/20 08:40 Dose: Not Given Documented by: Sodium Chloride (Saline Flush) 10 ml FLUSH ASDIRECTED PRN PRN Reason: Keep Vein Open Last Admin: 03/23/20 19:05 Dose: 10 ml Documented by: Sodium Chloride (Saline Flush) 2.5 ml FLUSH ASDIRECTED PRN PRN Reason: Keep Vein Open Last Admin: 03/23/20 19:05 Dose: 2.5 ml Documented by: Sodium Chloride ([place] Saline Nasal Gel) 0 gm EZE ASDIRECTED PRN PRN Reason: Nasal Dryness Last Admin: 04/01/20 10:13 Dose: 1 each Documented by: Discontinued Medications Acetaminophen (Tylenol) 650 mg PO NOW ONE Stop: 03/23/20 17:51 Last Admin: 03/23/20 19:08 Dose: 650 mg Documented by: Albuterol/Ipratropium (Combivent Respimat) 0 gm INH QID [facility] Last Admin: 03/30/20 12:25 Dose: 1 inhalation Documented by: Carvedilol (Coreg) 12.5 mg PO BID [facility] Last Admin: 04/04/20 11:24 Dose: Not Given Documented by: Dexamethasone (Dexamethasone) 6 mg PO DAILY [facility] Stop: 04/01/20 09:01 Last Admin: 04/01/20 08:32 Dose: 6 mg Documented by: Dextrose/Water (Dextrose 50% In Water) 50 ml IV ASDIRECTED PRN PRN Reason: Hypoglycemia Dextrose/Water (Dextrose 50% In Water) 50 ml IV ASDIRECTED PRN PRN Reason: Hypoglycemia Dextrose/Water (Dextrose 50% In Water) 50 ml IVPUSH ASDIRECTED PRN PRN Reason: Hypoglycemia Dextrose/Water (Dextrose 50% In Water) 50 ml IVPUSH ASDIRECTED PRN PRN Reason: Hypoglycemia Dextrose/Water (Dextrose 50% In Water) 50 ml IV ASDIRECTED PRN PRN Reason: Hypoglycemia Enoxaparin Sodium (Lovenox) 40 mg SUBCUT Q24H [facility] Last Admin: 03/23/20 23:08 Dose: Not Given Documented by: Enoxaparin Sodium (Lovenox) 40 mg SUBCUT BEDTIME [facility] Last Admin: 03/25/20 20:36 Dose: 40 mg Documented by: Fentanyl (Fentanyl) 100 mcg IVPUSH ONETIME ONE Stop: 03/23/20 16:29 Last Admin: 03/23/20 19:06 Dose: Not Given Documented by: Furosemide (Lasix) 20 mg IVPUSH ONETIME ONE Stop: 03/26/20 11:02 Last Admin: 03/26/20 12:43 Dose: 20 mg Documented by: Furosemide (Lasix) 20 mg IVPUSH ONETIME ONE Stop: 04/02/20 13:07 Last Admin: 04/02/20 14:12 Dose: 20 mg Documented by: Glucagon (Glucagen) 1 mg IM ASDIRECTED PRN PRN Reason: Hypoglycemia Glucagon (Glucagen) 1 mg IM ASDIRECTED PRN PRN Reason: Hypoglycemia Glucagon (Glucagen) 1 mg IM ASDIRECTED PRN PRN Reason: Hypoglycemia Glucagon (Glucagen) 1 mg IM ASDIRECTED PRN PRN Reason: Hypoglycemia Glucagon (Glucagen) 1 mg IM ASDIRECTED PRN PRN Reason: Hypoglycemia Sodium Chloride (Normal Saline) 1,000 mls @ 999 mls/hr IV STAT ONE Stop: 03/23/20 19:08 Last Admin: 03/23/20 19:08 Dose: 999 mls/hr Documented by: Levofloxacin/Dextrose 750 mg/ (Premix) 150 mls @ 100 mls/hr IV Q24H [facility] Last Admin: 03/30/20 20:00 Dose: 100 mls/hr Documented by: Insulin Aspart (Novolog) 0 unit SUBCUT TIDAC [facility]; Protocol Last Admin: 03/25/20 13:20 Dose: Not Given Documented by: Insulin Aspart (Novolog) 4 unit SUBCUT TIDAC [facility] Last Admin: 03/24/20 12:34 Dose: Not Given Documented by: Insulin Aspart (Novolog) 15 unit SUBCUT ONETIME ONE Stop: 03/24/20 12:04 Last Admin: 03/24/20 12:16 Dose: 15 units Documented by: Insulin Aspart (Novolog) 8 unit SUBCUT TIDAC [facility] Last Admin: 03/25/20 13:21 Dose: Not Given Documented by: Insulin Aspart (Novolog) 15 unit SUBCUT ONETIME ONE Stop: 03/24/20 20:45 Last Admin: 03/24/20 21:05 Dose: 15 unit Documented by: Insulin Aspart (Novolog) 20 unit SUBCUT ONETIME ONE Stop: 03/27/20 21:19 [facility] Insulin Aspart (Novolog) 20 unit SUBCUT ONETIME ONE Stop: 03/26/20 21:19 Last Admin: 03/26/20 21:35 Dose: 20 unit Documented by: Insulin Aspart (Novolog) 10 unit SUBCUT ACBREAKFAST ONE Stop: 03/30/20 08:01 Last Admin: 03/30/20 08:14 Dose: Not Given Documented by: Iopamidol (Isovue Multipack-370 (76%)) 100 ml IVPUSH ONETIME ONE Stop: 03/23/20 17:47 Last Admin: 03/23/20 17:46 Dose: 100 ml Documented by: Iopamidol (Isovue Multipack-370 (76%)) 100 ml IVPUSH ONETIME STA Stop: 03/27/20 12:52 Last Admin: 03/27/20 12:52 Dose: 100 ml Documented by: Iopamidol (Isovue Multipack-370 (76%)) 100 ml IVPUSH ONETIME STA Stop: 03/27/20 14:06 Last Admin: 03/27/20 21:46 Dose: Not Given Documented by: - Exam Quality Assessment: Supplemental Oxygen General: Alert, Oriented, Cooperative, No Acute Distress Lungs: Clear to Auscultation, Normal Respiratory Effort Cardiovascular: Regular Rate, Regular Rhythm GI/Abdominal Exam: Normal Bowel Sounds, Soft, Non-Tender Sepsis Event Note - Evaluation Sepsis Screening Result: No Definite Risk - Focused Exam Vital Signs: Vital Signs Temp Pulse Pulse Resp BP BP Pulse Ox 04/05/20 12:00 36.0 C L 79 18 104/70 95 04/05/20 08:30 89 125/69 04/05/20 08:00 35.9 C L 89 18 125/69 94 L 04/05/20 04:05 36.2 C 88 18 118/66 95 - Problem List & Annotations (1) COVID-19 SNOMED Code(s): 919885316 Code(s): U07.1 - COVID-19 Status: Acute Current Visit: Yes (2) History of CVA (cerebrovascular accident) SNOMED Code(s): 318587323 Code(s): Z86.73 - PRSNL HX OF TIA (TIA), AND CEREB INFRC W/O RESID DEFICITS Status: Acute Current Visit: Yes (3) Orthostatic hypotension SNOMED Code(s): 41643429 Code(s): I95.1 - ORTHOSTATIC HYPOTENSION Status: Acute Current Visit: Yes (4) Syncope SNOMED Code(s): 280629775 Code(s): R55 - SYNCOPE AND COLLAPSE Status: Acute Current Visit: Yes Qualifiers: Syncope type: unspecified Qualified Code(s): R55 - Syncope and collapse (5) CORNELIA (acute kidney injury) SNOMED Code(s): 73879097, 49107000 Code(s): N17.9 - ACUTE KIDNEY FAILURE, UNSPECIFIED Status: Resolved Current Visit: Yes (6) Chest pain, rule out acute myocardial infarction SNOMED Code(s): 97769850 Code(s): R07.9 - CHEST PAIN, UNSPECIFIED Status: Resolved Current Visit: Yes (7) (HFpEF) heart failure with preserved ejection fraction SNOMED Code(s): 523639395 Code(s): I50.30 - UNSPECIFIED DIASTOLIC (CONGESTIVE) HEART FAILURE Status: Acute Current Visit: No Qualifiers: Heart failure chronicity: acute on chronic Qualified Code(s): I50.33 - Acute on chronic diastolic (congestive) heart failure (8) Acute coronary syndrome SNOMED Code(s): 576348765 Code(s): I24.9 - ACUTE ISCHEMIC HEART DISEASE, UNSPECIFIED Status: Acute Current Visit: No (9) Acute respiratory failure with hypoxia SNOMED Code(s): 22841760, 259390284 Code(s): J96.01 - ACUTE RESPIRATORY FAILURE WITH HYPOXIA Status: Acute Current Visit: No - Problem List Review Problem List Initiated/Reviewed/Updated: Yes - Plan Plan:: This 49-year-old female admitted with multiple syncopal episodes at home with weakness shortness of breath 1. COVID-19 pneumonia with acute hypoxic respiratory failure - Dizziness mostly resolved - Oxygen requirement has improved to 5 lts. -Completed course of dexamethasone and Levaquin - Oxygen therapy to keep sats greater than 92%, wean as possible, doing much better - Encouraged proning or at least left lateral decubitus position. - IS and flutter - Combivent inhaler every 4 hours as needed dyspnea - Guaifenesin with codeine as needed cough along with Tessalon Perles - AYR nasal saline gel for nasal dryness. Educated on not using Vaseline to nares while on oxygen. - Reenforced importance of proning, and frequent ICS -[place] of BiPAP today for few hours 2. HFpEF/CAD/hypertension/CVA/Carotid stenosis - Daily weights strict I's and O's - Restart Lasix 40 mg PO today, negative balance today - decrease dose of carvedilol secondary to soft pressures - Holding amlodipine and lisinopril due to orthostatic hypotension - Continue aspirin and Plavix - Continue statin and Zetia 3. Dm Type 2 - Blood sugars continue to be well controlled - NovoLog 20 units with each meal, plus SSI - Lantus 50 units subcutaneously in the evening VTE prophylaxis: Lovenox twice daily CODE STATUS: FULL CODE Dispo: possible dc on Tuesday
[2020-04-05] MEDS: atorvaSTATin 40 MG Tab PO SCH (20:47)
[2020-04-05] MEDS: Albuterol/Ipratropium 4 GM Inhalation Spray INH PRN (20:51)
[2020-04-05] MEDS: Insulin Glargine,Human Rec. Analog 100 Units/ML 3 ML Pen SUBCUT SCH (20:51)
[2020-04-06] MEDS: Nystatin Topical Powder 15 GM Bottle TOP SCH ×3 (05:02→21:25)
[2020-04-06 06:29] LABS: BLOOD UREA NITROGEN,BUN 23 mg/dL (7.0-18.0); CARBON DIOXIDE,CO2 33.6 mmol/L (21.0-32.0); CHLORIDE,CL 105 mmol/L (98-107); GLUCOSE RANDOM 136 mg/dL (74-106); POTASSIUM,K 4.4 mmol/L (3.5-5.1); SODIUM,NA 141 mmol/L (136-145)
[2020-04-06] MEDS: Insulin Aspart 100 Units/ML 3 ML Pen SUBCUT SCH ×6 (08:27→17:46)
[2020-04-06] MEDS: Clopidogrel 75 MG Tab PO SCH (08:30)
[2020-04-06] MEDS: Furosemide 40 MG Tab PO SCH (08:30)
[2020-04-06] MEDS: Aspirin 81 MG Tab.Chew PO SCH (08:30)
[2020-04-06] MEDS: Benzonatate 100 MG Cap PO PRN ×2 (08:30→21:22)
[2020-04-06] MEDS: Acetaminophen 325 MG Tab PO PRN ×2 (08:31→21:22)
[2020-04-06] MEDS: Carvedilol 6.25 MG Tab PO SCH ×2 (08:31→21:50)
[2020-04-06] MEDS: Pantoprazole 40 MG Tab.CR PO SCH (08:31)
[2020-04-06] MEDS: Enoxaparin 40 MG/0.4 ML Syringe SUBCUT SCH ×2 (08:36→21:24)
[2020-04-06] MEDS: Sertraline 100 MG Tab PO SCH (08:42)
[2020-04-06] MEDS: Fluticasone Propionate 110 MCG/Puff 12 GM Inhaler INH SCH ×2 (08:42→21:24)
--- NOTE | 2020-04-06 13:31 | PCM.PN ---
- General Info Date of Service: 04/06/20 Admission Dx/Problem (Free Text): Admission Diagnosis/Problem Admission Diagnosis/Problem COVID 19 pneumonia, acute hypoxic respiratory failure, syncope Subjective Update: sitting in chair, feels much better, oxygen requirement has further improved significantly - Review of Systems General: Denies: Fever, Weakness Pulmonary: Denies: Shortness of Breath, Pleuritic Chest Pain, Cough Cardiovascular: Reports: Dyspnea on Exertion. Denies: Chest Pain, Palpitations Gastrointestinal: Denies: Abdominal Pain, Constipation, Decreased Appetite Genitourinary: Denies: Dysuria, Frequency, Burning, Retention Musculoskeletal: Denies: Neck Pain, Shoulder Pain, Arm Pain Skin: Denies: Cyanosis, Jaundice, Mottled Neurological: Reports: Dizziness (improving). Denies: Confusion, Headache, Numbness - Patient Data Vitals - Most Recent: Last Vital Signs Temp 36.0 C L 04/06/20 12:10 Pulse 81 04/06/20 12:10 Resp 18 04/06/20 12:10 BP 103/60 04/06/20 12:10 Pulse Ox 96 04/06/20 12:19 Orthostatic Blood Pressure [ 102/46 Standing] Orthostatic Blood Pressure [ 100/62 Sitting] Orthostatic Blood Pressure [ 121/65 Supine] Weight - Most Recent: 134.445 kg I&O - Last 24 Hours: Intake & Output 04/05/20 04/06/20 04/06/20 22:59 06:59 14:59 Intake Total 1200 750 Output Total 1450 600 Balance -250 150 Lab Results Last 24 Hours: Laboratory Results - last 24 hr 04/05/20 04/05/20 04/06/20 Range/Units 18:06 20:42 06:00 WBC 3.46 L (4.0-11.0) K/uL RBC 3.70 L (4.30-5.90) M/uL Hgb 10.0 L (12.0-16.0) g/dL Hct 31.5 L (36.0-46.0) % MCV 85.1 (80.0-98.0) fL MCH 27.0 (27.0-32.0) pg MCHC 31.7 (31.0-37.0) g/dL RDW Std Deviation 41.2 (28.0-62.0) fl RDW Coeff of Speedy 13 (11.0-15.0) % Plt Count 108 L (150-400) K/uL MPV 9.40 (7.40-12.00) fL Neut % (Auto) 69.7 (48.0-80.0) % Lymph % (Auto) 12.1 L (16.0-40.0) % Grand % (Auto) 12.7 (0.0-15.0) % Eos % (Auto) 5.2 (0.0-7.0) % Baso % (Auto) 0.3 (0.0-1.5) % Neut # (Auto) 2.4 (1.4-5.7) K/uL Lymph # (Auto) 0.4 L (0.6-2.4) K/uL Grand # (Auto) 0.4 (0.0-0.8) K/uL Eos # (Auto) 0.2 (0.0-0.7) K/uL Baso # (Auto) 0.0 (0.0-0.1) K/uL Nucleated RBC % 0.0 /100WBC Nucleated RBCs # 0 K/uL Sodium (136-145) mmol/L Potassium (3.5-5.1) mmol/L Chloride (98-107) mmol/L Carbon Dioxide (21.0-32.0) mmol/L BUN (7.0-18.0) mg/dL Creatinine (0.6-1.0) mg/dL Est Cr Clr Drug Dosing mL/min Estimated GFR (MDRD) ml/min Glucose (74-106) mg/dL POC Glucose 170 H 165 H (60-110) mg/dL Calcium (8.5-10.1) mg/dL Phosphorus (2.6-4.7) mg/dL Magnesium (1.8-2.4) mg/dL 04/06/20 04/06/20 04/06/20 Range/Units 06:00 06:18 12:16 WBC (4.0-11.0) K/uL RBC (4.30-5.90) M/uL Hgb (12.0-16.0) g/dL Hct (36.0-46.0) % MCV (80.0-98.0) fL MCH (27.0-32.0) pg MCHC (31.0-37.0) g/dL RDW Std Deviation (28.0-62.0) fl RDW Coeff of Speedy (11.0-15.0) % Plt Count (150-400) K/uL MPV (7.40-12.00) fL Neut % (Auto) (48.0-80.0) % Lymph % (Auto) (16.0-40.0) % Grand % (Auto) (0.0-15.0) % Eos % (Auto) (0.0-7.0) % Baso % (Auto) (0.0-1.5) % Neut # (Auto) (1.4-5.7) K/uL Lymph # (Auto) (0.6-2.4) K/uL Grand # (Auto) (0.0-0.8) K/uL Eos # (Auto) (0.0-0.7) K/uL Baso # (Auto) (0.0-0.1) K/uL Nucleated RBC % /100WBC Nucleated RBCs # K/uL Sodium 141 (136-145) mmol/L Potassium 4.4 (3.5-5.1) mmol/L Chloride 105 (98-107) mmol/L Carbon Dioxide 33.6 H (21.0-32.0) mmol/L BUN 23 H (7.0-18.0) mg/dL Creatinine 0.9 (0.6-1.0) mg/dL Est Cr Clr Drug Dosing 77.95 mL/min Estimated GFR (MDRD) > 60.0 ml/min Glucose 136 H (74-106) mg/dL POC Glucose 159 H 129 H (60-110) mg/dL Calcium 8.1 L (8.5-10.1) mg/dL Phosphorus 3.1 (2.6-4.7) mg/dL Magnesium 2.2 (1.8-2.4) mg/dL Med Orders - Current: Current Medications Acetaminophen (Tylenol) 650 mg PO Q4H PRN PRN Reason: Pain Last Admin: 04/06/20 08:31 Dose: 650 mg Documented by: Albuterol/Ipratropium (Duoneb 3.0-0.5 Mg/3 Ml) 3 ml NEB Q4HRRT PRN PRN Reason: Shortness Of Breath/wheezing Albuterol/Ipratropium (Combivent Respimat) 0 gm INH Q4HRRT PRN PRN Reason: Shortness of Breath Last Admin: 04/05/20 20:51 Dose: 1 puff Documented by: Aspirin (Aspirin) 81 mg PO DAILY [facility] Last Admin: 04/06/20 08:30 Dose: 81 mg Documented by: Atorvastatin Calcium (Lipitor) 80 mg PO BEDTIME [facility] Last Admin: 04/05/20 20:47 Dose: 80 mg Documented by: Benzonatate (Tessalon Perles) 200 mg PO TID PRN PRN Reason: Cough Last Admin: 04/06/20 08:30 Dose: 200 mg Documented by: Carvedilol (Coreg) 6.25 mg PO BID [facility] Last Admin: 04/06/20 08:31 Dose: 6.25 mg Documented by: Clopidogrel Bisulfate (Plavix) 75 mg PO DAILY [facility] Last Admin: 04/06/20 08:30 Dose: 75 mg Documented by: Dextrose/Water (Dextrose 50% In Water) 50 ml IVPUSH ASDIRECTED PRN PRN Reason: Hypoglycemia Enoxaparin Sodium (Lovenox) 40 mg SUBCUT BID [facility] Last Admin: 04/06/20 08:36 Dose: 40 mg Documented by: Fluticasone Propionate (Flovent Hfa 110 Mcg) 0 gm INH BID [facility] Last Admin: 04/06/20 08:42 Dose: 1 puff Documented by: Furosemide (Lasix) 40 mg PO DAILY [facility] Last Admin: 04/06/20 08:30 Dose: 40 mg Documented by: Glucagon (Glucagen) 1 mg IM ASDIRECTED PRN PRN Reason: Hypoglycemia Insulin Aspart (Novolog) 20 unit SUBCUT TIDAC [facility] Last Admin: 04/06/20 12:27 Dose: 20 unit Documented by: Insulin Aspart (Novolog) 0 unit SUBCUT TIDAC [facility]; Protocol Last Admin: 04/06/20 12:27 Dose: Not Given Documented by: Insulin Glargine (Lantus Solostar) 50 units SUBCUT BEDTIME [facility] Last Admin: 04/05/20 20:51 Dose: 50 units Documented by: Nitroglycerin (Nitrostat) 0.4 mg SL .EVERY 5 MINUTES PRN PRN Reason: Chest Pain Nystatin (Nystop) 0 gm TOP TID [facility] Last Admin: 04/06/20 05:02 Dose: Not Given Documented by: Ondansetron HCl (Zofran Odt) 4 mg PO Q4H PRN PRN Reason: nausea, able to take PO Pantoprazole Sodium (Protonix) 40 mg PO DAILY [facility] Last Admin: 04/06/20 08:31 Dose: 40 mg Documented by: Sertraline HCl (Zoloft) 200 mg PO DAILY [facility] Last Admin: 04/06/20 08:42 Dose: Not Given Documented by: Sodium Chloride (Saline Flush) 10 ml FLUSH ASDIRECTED PRN PRN Reason: Keep Vein Open Last Admin: 03/23/20 19:05 Dose: 10 ml Documented by: Sodium Chloride (Saline Flush) 2.5 ml FLUSH ASDIRECTED PRN PRN Reason: Keep Vein Open Last Admin: 03/23/20 19:05 Dose: 2.5 ml Documented by: Sodium Chloride ([place] Saline Nasal Gel) 0 gm EZE ASDIRECTED PRN PRN Reason: Nasal Dryness Last Admin: 04/01/20 10:13 Dose: 1 each Documented by: Discontinued Medications Acetaminophen (Tylenol) 650 mg PO NOW ONE Stop: 03/23/20 17:51 Last Admin: 03/23/20 19:08 Dose: 650 mg Documented by: Albuterol/Ipratropium (Combivent Respimat) 0 gm INH QID [facility] Last Admin: 03/30/20 12:25 Dose: 1 inhalation Documented by: Carvedilol (Coreg) 12.5 mg PO BID [facility] Last Admin: 04/04/20 11:24 Dose: Not Given Documented by: Dexamethasone (Dexamethasone) 6 mg PO DAILY [facility] Stop: 04/01/20 09:01 Last Admin: 04/01/20 08:32 Dose: 6 mg Documented by: Dextrose/Water (Dextrose 50% In Water) 50 ml IV ASDIRECTED PRN PRN Reason: Hypoglycemia Dextrose/Water (Dextrose 50% In Water) 50 ml IV ASDIRECTED PRN PRN Reason: Hypoglycemia Dextrose/Water (Dextrose 50% In Water) 50 ml IVPUSH ASDIRECTED PRN PRN Reason: Hypoglycemia Dextrose/Water (Dextrose 50% In Water) 50 ml IVPUSH ASDIRECTED PRN PRN Reason: Hypoglycemia Dextrose/Water (Dextrose 50% In Water) 50 ml IV ASDIRECTED PRN PRN Reason: Hypoglycemia Enoxaparin Sodium (Lovenox) 40 mg SUBCUT Q24H [facility] Last Admin: 03/23/20 23:08 Dose: Not Given Documented by: Enoxaparin Sodium (Lovenox) 40 mg SUBCUT BEDTIME [facility] Last Admin: 03/25/20 20:36 Dose: 40 mg Documented by: Fentanyl (Fentanyl) 100 mcg IVPUSH ONETIME ONE Stop: 03/23/20 16:29 Last Admin: 03/23/20 19:06 Dose: Not Given Documented by: Furosemide (Lasix) 20 mg IVPUSH ONETIME ONE Stop: 03/26/20 11:02 Last Admin: 03/26/20 12:43 Dose: 20 mg Documented by: Furosemide (Lasix) 20 mg IVPUSH ONETIME ONE Stop: 04/02/20 13:07 Last Admin: 04/02/20 14:12 Dose: 20 mg Documented by: Glucagon (Glucagen) 1 mg IM ASDIRECTED PRN PRN Reason: Hypoglycemia Glucagon (Glucagen) 1 mg IM ASDIRECTED PRN PRN Reason: Hypoglycemia Glucagon (Glucagen) 1 mg IM ASDIRECTED PRN PRN Reason: Hypoglycemia Glucagon (Glucagen) 1 mg IM ASDIRECTED PRN PRN Reason: Hypoglycemia Glucagon (Glucagen) 1 mg IM ASDIRECTED PRN PRN Reason: Hypoglycemia Sodium Chloride (Normal Saline) 1,000 mls @ 999 mls/hr IV STAT ONE Stop: 03/23/20 19:08 Last Admin: 03/23/20 19:08 Dose: 999 mls/hr Documented by: Levofloxacin/Dextrose 750 mg/ (Premix) 150 mls @ 100 mls/hr IV Q24H [facility] Last Admin: 03/30/20 20:00 Dose: 100 mls/hr Documented by: Insulin Aspart (Novolog) 0 unit SUBCUT TIDAC [facility]; Protocol Last Admin: 03/25/20 13:20 Dose: Not Given Documented by: Insulin Aspart (Novolog) 4 unit SUBCUT TIDAC [facility] Last Admin: 03/24/20 12:34 Dose: Not Given Documented by: Insulin Aspart (Novolog) 15 unit SUBCUT ONETIME ONE Stop: 03/24/20 12:04 Last Admin: 03/24/20 12:16 Dose: 15 units Documented by: Insulin Aspart (Novolog) 8 unit SUBCUT TIDAC [facility] Last Admin: 03/25/20 13:21 Dose: Not Given Documented by: Insulin Aspart (Novolog) 15 unit SUBCUT ONETIME ONE Stop: 03/24/20 20:45 Last Admin: 03/24/20 21:05 Dose: 15 unit Documented by: Insulin Aspart (Novolog) 20 unit SUBCUT ONETIME ONE Stop: 03/27/20 21:19 Insulin Aspart (Novolog) 0 unit SUBCUT TIDAC [facility]; Protocol Insulin Aspart (Novolog) 20 unit SUBCUT ONETIME ONE Stop: 03/26/20 21:19 Last Admin: 03/26/20 21:35 Dose: 20 unit Documented by: Insulin Aspart (Novolog) 10 unit SUBCUT ACBREAKFAST ONE Stop: 03/30/20 08:01 Last Admin: 03/30/20 08:14 Dose: Not Given Documented by: Iopamidol (Isovue Multipack-370 (76%)) 100 ml IVPUSH ONETIME ONE Stop: 03/23/20 17:47 Last Admin: 03/23/20 17:46 Dose: 100 ml Documented by: Iopamidol (Isovue Multipack-370 (76%)) 100 ml IVPUSH ONETIME STA Stop: 03/27/20 12:52 Last Admin: 03/27/20 12:52 Dose: 100 ml Documented by: Iopamidol (Isovue Multipack-370 (76%)) 100 ml IVPUSH ONETIME STA Stop: 03/27/20 14:06 Last Admin: 03/27/20 21:46 Dose: Not Given Documented by: - Exam Quality Assessment: Supplemental Oxygen General: Alert, Oriented Neck: Supple, Trachea Midline Lungs: Clear to Auscultation, Normal Respiratory Effort, Crackles (improved) GI/Abdominal Exam: Normal Bowel Sounds, Soft, Non-Tender, Distended Sepsis Event Note - Evaluation Sepsis Screening Result: No Definite Risk - Focused Exam Vital Signs: Vital Signs Temp Pulse Pulse Resp BP BP Pulse Ox 04/06/20 12:19 96 04/06/20 12:10 36.0 C L 81 18 103/60 97 04/06/20 08:31 84 120/77 04/06/20 08:00 36.8 C 81 18 120/77 94 L 04/06/20 04:00 35.9 C L 79 18 113/64 96 - Problem List & Annotations (1) COVID-19 SNOMED Code(s): 990853419 Code(s): U07.1 - COVID-19 Status: Acute Current Visit: Yes (2) History of CVA (cerebrovascular accident) SNOMED Code(s): 026604428 Code(s): Z86.73 - PRSNL HX OF TIA (TIA), AND CEREB INFRC W/O RESID DEFICITS Status: Acute Current Visit: Yes (3) Orthostatic hypotension SNOMED Code(s): 18486310 Code(s): I95.1 - ORTHOSTATIC HYPOTENSION Status: Acute Current Visit: Yes (4) Syncope SNOMED Code(s): 639127796 Code(s): R55 - SYNCOPE AND COLLAPSE Status: Acute Current Visit: Yes Qualifiers: Syncope type: unspecified Qualified Code(s): R55 - Syncope and collapse (5) CORNELIA (acute kidney injury) SNOMED Code(s): 71004671, 42443992 Code(s): N17.9 - ACUTE KIDNEY FAILURE, UNSPECIFIED Status: Resolved Current Visit: Yes (6) Chest pain, rule out acute myocardial infarction SNOMED Code(s): 84173946 Code(s): R07.9 - CHEST PAIN, UNSPECIFIED Status: Resolved Current Visit: Yes (7) (HFpEF) heart failure with preserved ejection fraction SNOMED Code(s): 244811467 Code(s): I50.30 - UNSPECIFIED DIASTOLIC (CONGESTIVE) HEART FAILURE Status: Acute Current Visit: No Qualifiers: Heart failure chronicity: acute on chronic Qualified Code(s): I50.33 - Acute on chronic diastolic (congestive) heart failure (8) Acute coronary syndrome SNOMED Code(s): 965677928 Code(s): I24.9 - ACUTE ISCHEMIC HEART DISEASE, UNSPECIFIED Status: Acute Current Visit: No (9) Acute respiratory failure with hypoxia SNOMED Code(s): 64681454, 646288938 Code(s): J96.01 - ACUTE RESPIRATORY FAILURE WITH HYPOXIA Status: Acute Current Visit: No - Problem List Review Problem List Initiated/Reviewed/Updated: Yes - Plan Plan:: This 49-year-old female admitted with multiple syncopal episodes at home with weakness shortness of breath 1. COVID-19 pneumonia with acute hypoxic respiratory failure - Dizziness mostly resolved - Oxygen requirement has improved to 2 lts. -Completed course of dexamethasone and Levaquin - Oxygen therapy to keep sats greater than 92%, wean as possible, doing much better - Encouraged proning or at least left lateral decubitus position. - IS and flutter - Combivent inhaler every 4 hours as needed dyspnea - Guaifenesin with codeine as needed cough along with Tessalon Perles - AYR nasal saline gel for nasal dryness. Educated on not using Vaseline to nares while on oxygen. - Reenforced importance of proning, and frequent ICS -[place] of BiPAP today for few hours 2. HFpEF/CAD/hypertension/CVA/Carotid stenosis - Daily weights strict I's and O's - Restart Lasix 40 mg PO today, negative balance today - decrease dose of carvedilol secondary to soft pressures - Holding amlodipine and lisinopril due to orthostatic hypotension - Continue aspirin and Plavix - Continue statin and Zetia 3. Dm Type 2 - Blood sugars continue to be well controlled - NovoLog 20 units with each meal, plus SSI - Lantus 50 units subcutaneously in the evening VTE prophylaxis: Lovenox twice daily CODE STATUS: FULL CODE Dispo: possible dc on Tuesday
[2020-04-06] MEDS: atorvaSTATin 40 MG Tab PO SCH (21:23)
[2020-04-06] MEDS: Insulin Glargine,Human Rec. Analog 100 Units/ML 3 ML Pen SUBCUT SCH (21:51)
[2020-04-07] MEDS: Nystatin Topical Powder 15 GM Bottle TOP SCH ×3 (05:07→21:45)
[2020-04-07 06:36] LABS: BLOOD UREA NITROGEN,BUN 21 mg/dL (7.0-18.0); CARBON DIOXIDE,CO2 31.4 mmol/L (21.0-32.0); CHLORIDE,CL 104 mmol/L (98-107); GLUCOSE RANDOM 210 mg/dL (74-106); SODIUM,NA 138 mmol/L (136-145)
[2020-04-07] MEDS: Clopidogrel 75 MG Tab PO SCH (08:39)
[2020-04-07] MEDS: Benzonatate 100 MG Cap PO PRN ×2 (08:39→21:42)
[2020-04-07] MEDS: Pantoprazole 40 MG Tab.CR PO SCH (08:40)
[2020-04-07] MEDS: Carvedilol 6.25 MG Tab PO SCH ×2 (08:40→20:02)
[2020-04-07] MEDS: Furosemide 40 MG Tab PO SCH (08:40)
[2020-04-07] MEDS: Aspirin 81 MG Tab.Chew PO SCH (08:40)
[2020-04-07] MEDS: Acetaminophen 325 MG Tab PO PRN ×2 (08:40→21:41)
[2020-04-07] MEDS: Enoxaparin 40 MG/0.4 ML Syringe SUBCUT SCH (08:59)
[2020-04-07] MEDS: Insulin Aspart 100 Units/ML 3 ML Pen SUBCUT SCH ×6 (09:04→17:53)
[2020-04-07] MEDS: Fluticasone Propionate 110 MCG/Puff 12 GM Inhaler INH SCH ×2 (09:08→20:02)
[2020-04-07] MEDS: Sertraline 100 MG Tab PO SCH (09:08)
--- NOTE | 2020-04-07 12:00 | PCM.PN ---
- General Info Date of Service: 04/07/20 Admission Dx/Problem (Free Text): Admission Diagnosis/Problem Admission Diagnosis/Problem COVID 19 pneumonia, acute hypoxic respiratory failure, syncope Subjective Update: Continues to steadily improve. No chest pain. Reports dyspnea when up and ambulating. Nursing checked ambulatory oxygen this morning reports she is needing upwards of 4 L to keep sats at 90% with activity. Encouraged aggressive I-S and activity up in the room as tolerated. Functional Status: Reports: Pain Controlled, Tolerating Diet, Ambulating, Urinating - Review of Systems General: Reports: No Symptoms HEENT: Reports: No Symptoms. Denies: Headaches, Visual Changes Pulmonary: Reports: Shortness of Breath. Denies: Cough Cardiovascular: Reports: Dyspnea on Exertion. Denies: Edema, Lightheadedness Gastrointestinal: Reports: No Symptoms. Denies: Abdominal Pain, Nausea, Vomitin g Genitourinary: Reports: No Symptoms. Denies: Dysuria, Frequency, Burning Musculoskeletal: Reports: No Symptoms Skin: Reports: No Symptoms Neurological: Reports: No Symptoms Psychiatric: Reports: No Symptoms - Patient Data Vitals - Most Recent: Last Vital Signs Temp 96.3 F L 04/07/20 10:53 Pulse 79 04/07/20 10:53 Resp 20 04/07/20 10:53 BP 118/78 04/07/20 10:53 Pulse Ox 97 04/07/20 10:53 Orthostatic Blood Pressure [ 102/46 Standing] Orthostatic Blood Pressure [ 100/62 Sitting] Orthostatic Blood Pressure [ 121/65 Supine] Weight - Most Recent: 133.628 kg I&O - Last 24 Hours: Intake & Output 04/06/20 04/07/20 04/07/20 22:59 06:59 14:59 Intake Total 1050 1000 Output Total 2000 1100 Balance -950 -100 Lab Results Last 24 Hours: Laboratory Results - last 24 hr 04/06/20 04/06/20 04/06/20 Range/Units 12:16 17:44 21:19 WBC (4.0-11.0) K/uL RBC (4.30-5.90) M/uL Hgb (12.0-16.0) g/dL Hct (36.0-46.0) % MCV (80.0-98.0) fL MCH (27.0-32.0) pg MCHC (31.0-37.0) g/dL RDW Std Deviation (28.0-62.0) fl RDW Coeff of Speedy (11.0-15.0) % Plt Count (150-400) K/uL MPV (7.40-12.00) fL Neut % (Auto) (48.0-80.0) % Lymph % (Auto) (16.0-40.0) % [place] % (Auto) (0.0-15.0) % Eos % (Auto) (0.0-7.0) % Baso % (Auto) (0.0-1.5) % Neut # (Auto) (1.4-5.7) K/uL Lymph # (Auto) (0.6-2.4) K/uL [place] # (Auto) (0.0-0.8) K/uL Eos # (Auto) (0.0-0.7) K/uL Baso # (Auto) (0.0-0.1) K/uL Nucleated RBC % /100WBC Nucleated RBCs # K/uL Sodium (136-145) mmol/L Potassium (3.5-5.1) mmol/L Chloride (98-107) mmol/L Carbon Dioxide (21.0-32.0) mmol/L BUN (7.0-18.0) mg/dL Creatinine (0.6-1.0) mg/dL Est Cr Clr Drug Dosing mL/min Estimated GFR (MDRD) ml/min Glucose (74-106) mg/dL POC Glucose 129 H 128 H 120 H (60-110) mg/dL Calcium (8.5-10.1) mg/dL Phosphorus (2.6-4.7) mg/dL Magnesium (1.8-2.4) mg/dL 04/07/20 04/07/20 04/07/20 Range/Units 05:55 05:55 06:23 WBC 3.45 L (4.0-11.0) K/uL RBC 3.68 L (4.30-5.90) M/uL Hgb 9.6 L (12.0-16.0) g/dL Hct 31.4 L (36.0-46.0) % MCV 85.3 (80.0-98.0) fL MCH 26.1 L (27.0-32.0) pg MCHC 30.6 L (31.0-37.0) g/dL RDW Std Deviation 42.4 (28.0-62.0) fl RDW Coeff of Speedy 14 (11.0-15.0) % Plt Count 109 L (150-400) K/uL MPV 9.70 (7.40-12.00) fL Neut % (Auto) 65.5 (48.0-80.0) % Lymph % (Auto) 16.8 (16.0-40.0) % [place] % (Auto) 12.2 (0.0-15.0) % Eos % (Auto) 5.5 (0.0-7.0) % Baso % (Auto) 0.0 (0.0-1.5) % Neut # (Auto) 2.3 (1.4-5.7) K/uL Lymph # (Auto) 0.6 (0.6-2.4) K/uL [place] # (Auto) 0.4 (0.0-0.8) K/uL Eos # (Auto) 0.2 (0.0-0.7) K/uL Baso # (Auto) 0.0 (0.0-0.1) K/uL Nucleated RBC % 0.0 /100WBC Nucleated RBCs # 0 K/uL Sodium 138 (136-145) mmol/L Potassium 4.0 (3.5-5.1) mmol/L Chloride 104 (98-107) mmol/L Carbon Dioxide 31.4 (21.0-32.0) mmol/L BUN 21 H (7.0-18.0) mg/dL Creatinine 0.9 (0.6-1.0) mg/dL Est Cr Clr Drug Dosing 77.95 mL/min Estimated GFR (MDRD) > 60.0 ml/min Glucose 210 H (74-106) mg/dL POC Glucose 232 H (60-110) mg/dL Calcium 8.0 L (8.5-10.1) mg/dL Phosphorus 2.8 (2.6-4.7) mg/dL Magnesium 2.0 (1.8-2.4) mg/dL Med Orders - Current: Current Medications Acetaminophen (Tylenol) 650 mg PO Q4H PRN PRN Reason: Pain Last Admin: 04/07/20 08:40 Dose: 650 mg Documented by: Albuterol/Ipratropium (Duoneb 3.0-0.5 Mg/3 Ml) 3 ml NEB Q4HRRT PRN PRN Reason: Shortness Of Breath/wheezing Albuterol/Ipratropium (Combivent Respimat) 0 gm INH Q4HRRT PRN PRN Reason: Shortness of Breath Last Admin: 04/05/20 20:51 Dose: 1 puff Documented by: Aspirin (Aspirin) 81 mg PO DAILY [facility] Last Admin: 04/07/20 08:40 Dose: 81 mg Documented by: Atorvastatin Calcium (Lipitor) 80 mg PO BEDTIME [facility] Last Admin: 04/06/20 21:23 Dose: 80 mg Documented by: Benzonatate (Tessalon Perles) 200 mg PO TID PRN PRN Reason: Cough Last Admin: 04/07/20 08:39 Dose: 200 mg Documented by: Carvedilol (Coreg) 6.25 mg PO BID [facility] Last Admin: 04/07/20 08:40 Dose: 6.25 mg Documented by: Clopidogrel Bisulfate (Plavix) 75 mg PO DAILY [facility] Last Admin: 04/07/20 08:39 Dose: 75 mg Documented by: Dextrose/Water (Dextrose 50% In Water) 50 ml IVPUSH ASDIRECTED PRN PRN Reason: Hypoglycemia Enoxaparin Sodium (Lovenox) 40 mg SUBCUT DAILY [facility] Fluticasone Propionate (Flovent Hfa 110 Mcg) 0 gm INH BID [facility] Last Admin: 04/07/20 09:08 Dose: 1 puff Documented by: Furosemide (Lasix) 40 mg PO DAILY [facility] Last Admin: 04/07/20 08:40 Dose: 40 mg Documented by: Glucagon (Glucagen) 1 mg IM ASDIRECTED PRN PRN Reason: Hypoglycemia Insulin Aspart (Novolog) 20 unit SUBCUT TIDAC [facility] Last Admin: 04/07/20 09:05 Dose: 20 unit Documented by: Insulin Aspart (Novolog) 0 unit SUBCUT TIDAC [facility]; Protocol Last Admin: 04/07/20 09:04 Dose: 4 unit Documented by: Insulin Glargine (Lantus Solostar) 50 units SUBCUT BEDTIME [facility] Last Admin: 04/06/20 21:51 Dose: 50 units Documented by: Nitroglycerin (Nitrostat) 0.4 mg SL .EVERY 5 MINUTES PRN PRN Reason: Chest Pain Nystatin (Nystop) 0 gm TOP TID [facility] Last Admin: 04/07/20 05:07 Dose: Not Given Documented by: Ondansetron HCl (Zofran Odt) 4 mg PO Q4H PRN PRN Reason: nausea, able to take PO Pantoprazole Sodium (Protonix) 40 mg PO DAILY [facility] Last Admin: 04/07/20 08:40 Dose: 40 mg Documented by: Sertraline HCl (Zoloft) 200 mg PO DAILY [facility] Last Admin: 04/07/20 09:08 Dose: Not Given Documented by: Sodium Chloride (Saline Flush) 10 ml FLUSH ASDIRECTED PRN PRN Reason: Keep Vein Open Last Admin: 03/23/20 19:05 Dose: 10 ml Documented by: Sodium Chloride (Saline Flush) 2.5 ml FLUSH ASDIRECTED PRN PRN Reason: Keep Vein Open Last Admin: 03/23/20 19:05 Dose: 2.5 ml Documented by: Sodium Chloride ([place] Saline Nasal Gel) 0 gm EZE ASDIRECTED PRN PRN Reason: Nasal Dryness Last Admin: 04/01/20 10:13 Dose: 1 each Documented by: Discontinued Medications Acetaminophen (Tylenol) 650 mg PO NOW ONE Stop: 03/23/20 17:51 Last Admin: 03/23/20 19:08 Dose: 650 mg Documented by: Albuterol/Ipratropium (Combivent Respimat) 0 gm INH QID [facility] Last Admin: 03/30/20 12:25 Dose: 1 inhalation Documented by: Carvedilol (Coreg) 12.5 mg PO BID [facility] Last Admin: 04/04/20 11:24 Dose: Not Given Documented by: Dexamethasone (Dexamethasone) 6 mg PO DAILY [facility] Stop: 04/01/20 09:01 Last Admin: 04/01/20 08:32 Dose: 6 mg Documented by: Dextrose/Water (Dextrose 50% In Water) 50 ml IV ASDIRECTED PRN PRN Reason: Hypoglycemia Dextrose/Water (Dextrose 50% In Water) 50 ml IV ASDIRECTED PRN PRN Reason: Hypoglycemia Dextrose/Water (Dextrose 50% In Water) 50 ml IVPUSH ASDIRECTED PRN PRN Reason: Hypoglycemia Dextrose/Water (Dextrose 50% In Water) 50 ml IVPUSH ASDIRECTED PRN PRN Reason: Hypoglycemia Dextrose/Water (Dextrose 50% In Water) 50 ml IV ASDIRECTED PRN PRN Reason: Hypoglycemia Enoxaparin Sodium (Lovenox) 40 mg SUBCUT Q24H [facility] Last Admin: 03/23/20 23:08 Dose: Not Given Documented by: Enoxaparin Sodium (Lovenox) 40 mg SUBCUT BEDTIME [facility] Last Admin: 03/25/20 20:36 Dose: 40 mg Documented by: Enoxaparin Sodium (Lovenox) 40 mg SUBCUT BID [facility] Last Admin: 04/07/20 08:59 Dose: 40 mg Documented by: Fentanyl (Fentanyl) 100 mcg IVPUSH ONETIME ONE Stop: 03/23/20 16:29 Last Admin: 03/23/20 19:06 Dose: Not Given Documented by: Furosemide (Lasix) 20 mg IVPUSH ONETIME ONE Stop: 03/26/20 11:02 Last Admin: 03/26/20 12:43 Dose: 20 mg Documented by: Furosemide (Lasix) 20 mg IVPUSH ONETIME ONE Stop: 04/02/20 13:07 Last Admin: 04/02/20 14:12 Dose: 20 mg Documented by: Glucagon (Glucagen) 1 mg IM ASDIRECTED PRN PRN Reason: Hypoglycemia Glucagon (Glucagen) 1 mg IM ASDIRECTED PRN PRN Reason: Hypoglycemia Glucagon (Glucagen) 1 mg IM ASDIRECTED PRN PRN Reason: Hypoglycemia Glucagon (Glucagen) 1 mg IM ASDIRECTED PRN PRN Reason: Hypoglycemia Glucagon (Glucagen) 1 mg IM ASDIRECTED PRN PRN Reason: Hypoglycemia Sodium Chloride (Normal Saline) 1,000 mls @ 999 mls/hr IV STAT ONE Stop: 03/23/20 19:08 Last Admin: 03/23/20 19:08 Dose: 999 mls/hr Documented by: Levofloxacin/Dextrose 750 mg/ (Premix) 150 mls @ 100 mls/hr IV Q24H [facility] Last Admin: 03/30/20 20:00 Dose: 100 mls/hr Documented by: Insulin Aspart (Novolog) 0 unit SUBCUT TIDAC [facility]; Protocol Last Admin: 03/25/20 13:20 Dose: Not Given Documented by: Insulin Aspart (Novolog) 4 unit SUBCUT TIDAC [facility] Last Admin: 03/24/20 12:34 Dose: Not Given Documented by: Insulin Aspart (Novolog) 15 unit SUBCUT ONETIME ONE Stop: 03/24/20 12:04 Last Admin: 03/24/20 12:16 Dose: 15 units Documented by: Insulin Aspart (Novolog) 8 unit SUBCUT TIDAC [facility] Last Admin: 03/25/20 13:21 Dose: Not Given Documented by: Insulin Aspart (Novolog) 15 unit SUBCUT ONETIME ONE Stop: 03/24/20 20:45 Last Admin: 03/24/20 21:05 Dose: 15 unit Documented by: Insulin Aspart (Novolog) 20 unit SUBCUT ONETIME ONE Stop: 03/27/20 21:19 [facility] Insulin Aspart (Novolog) 20 unit SUBCUT ONETIME ONE Stop: 03/26/20 21:19 Last Admin: 03/26/20 21:35 Dose: 20 unit Documented by: Insulin Aspart (Novolog) 10 unit SUBCUT ACBREAKFAST ONE Stop: 03/30/20 08:01 Last Admin: 03/30/20 08:14 Dose: Not Given Documented by: Iopamidol (Isovue Multipack-370 (76%)) 100 ml IVPUSH ONETIME ONE Stop: 03/23/20 17:47 Last Admin: 03/23/20 17:46 Dose: 100 ml Documented by: Iopamidol (Isovue Multipack-370 (76%)) 100 ml IVPUSH ONETIME STA Stop: 03/27/20 12:52 Last Admin: 03/27/20 12:52 Dose: 100 ml Documented by: Iopamidol (Isovue Multipack-370 (76%)) 100 ml IVPUSH ONETIME STA Stop: 03/27/20 14:06 Last Admin: 03/27/20 21:46 Dose: Not Given Documented by: - Exam General: Alert, Oriented, Cooperative, No Acute Distress Lungs: Normal Respiratory Effort (Dyspnea with activity), Decreased Breath Sounds Cardiovascular: Regular Rate, Regular Rhythm, No Murmurs GI/Abdominal Exam: Normal Bowel Sounds, Soft, Non-Tender Extremities: Normal Inspection, Normal Range of Motion, Non-Tender, No Pedal Edema Neurological: No New Focal Deficit Psy/Mental Status: Alert, Normal Affect, Normal Mood Sepsis Event Note - Evaluation Sepsis Screening Result: No Definite Risk - Focused Exam Vital Signs: Vital Signs Temp Pulse Pulse Resp BP BP Pulse Ox 04/07/20 10:53 96.3 F L 79 20 118/78 97 04/07/20 08:40 91 139/76 04/07/20 08:37 97.8 F 81 18 139/76 95 04/07/20 05:03 97.5 F 75 19 110/60 95 04/07/20 03:37 78 97 04/07/20 01:43 75 97 04/07/20 00:17 97 F 86 17 126/63 97 - Problem List & Annotations (1) CORNELIA (acute kidney injury) SNOMED Code(s): 91708634, 38861932 Code(s): N17.9 - ACUTE KIDNEY FAILURE, UNSPECIFIED Status: Resolved Current Visit: Yes (2) COVID-19 SNOMED Code(s): 334096609 Code(s): U07.1 - COVID-19 Status: Acute Current Visit: Yes (3) Chest pain, rule out acute myocardial infarction SNOMED Code(s): 41224515 Code(s): R07.9 - CHEST PAIN, UNSPECIFIED Status: Resolved Current Visit: Yes (4) Orthostatic hypotension SNOMED Code(s): 83741970 Code(s): I95.1 - ORTHOSTATIC HYPOTENSION Status: Acute Current Visit: Yes (5) Syncope SNOMED Code(s): 226871178 Code(s): R55 - SYNCOPE AND COLLAPSE Status: Acute Current Visit: Yes Qualifiers: Syncope type: unspecified Qualified Code(s): R55 - Syncope and collapse (6) (HFpEF) heart failure with preserved ejection fraction SNOMED Code(s): 772889120 Code(s): I50.30 - UNSPECIFIED DIASTOLIC (CONGESTIVE) HEART FAILURE Status: Acute Current Visit: No Qualifiers: Heart failure chronicity: acute on chronic Qualified Code(s): I50.33 - Acute on chronic diastolic (congestive) heart failure (7) Acute respiratory failure with hypoxia SNOMED Code(s): 02783743, 145599922 Code(s): J96.01 - ACUTE RESPIRATORY FAILURE WITH HYPOXIA Status: Acute Current Visit: No (8) DM type 2 (diabetes mellitus, type 2) SNOMED Code(s): 00682775 Code(s): E11.9 - TYPE 2 DIABETES MELLITUS WITHOUT COMPLICATIONS Status: Chronic Current Visit: No Qualifiers: Diabetes mellitus snf insulin use: with snf use Diabetes mellitus complication status: with hyperglycemia Qualified Code(s): E11.65 - Type 2 diabetes mellitus with hyperglycemia; 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 (9) HLD (hyperlipidemia) SNOMED Code(s): 12683790 Code(s): E78.5 - HYPERLIPIDEMIA, UNSPECIFIED Status: Chronic Current Visit: No (10) HTN (hypertension) SNOMED Code(s): 09222633 Code(s): I10 - ESSENTIAL (PRIMARY) HYPERTENSION Status: Chronic Current Visit: No (11) Obesity SNOMED Code(s): 464303448, 717024915 Code(s): E66.9 - OBESITY, UNSPECIFIED Status: Chronic Current Visit: No Qualifiers: Serious obesity comorbidity presence: with serious comorbidity (12) History of CVA (cerebrovascular accident) SNOMED Code(s): 915076687 Code(s): Z86.73 - PRSNL HX OF TIA (TIA), AND CEREB INFRC W/O RESID DEFICITS Status: Acute Current Visit: Yes - Problem List Review Problem List Initiated/Reviewed/Updated: Yes - My Orders Last 24 Hours: My Active Orders 04/08/20 09:00 Enoxaparin [Lovenox] 40 mg SUBCUT DAILY - Plan Plan:: This 49-year-old female admitted with multiple syncopal episodes at home with weakness shortness of breath 1. COVID-19 pneumonia with acute hypoxic respiratory failure - Dizziness mostly resolved - Oxygen requirement has improved to 2 L -Completed course of dexamethasone and Levaquin - Oxygen therapy to keep sats greater than 92%, wean as possible, doing much better - Encouraged proning or at least left lateral decubitus position. - IS and flutter - Combivent inhaler every 4 hours as needed dyspnea - Guaifenesin with codeine as needed cough along with Tessalon Perles - AYR nasal saline gel for nasal dryness. Educated on not using Vaseline to nares while on oxygen. - Reenforced importance of proning, and frequent ICS -Encouraged to keep up with activity likely home soon but oxygen needs with activity need to decrease slightly.-Oxygen saturations with activity is dropped to 80s on 2 L needing upwards of 4 to 5 L with activity to keep sats 90%. 2. HFpEF/CAD/hypertension/CVA/Carotid stenosis - Daily weights strict I's and O's - Lasix 40 mg PO today, negative balance today - carvedilol 6.25 twice daily - Holding amlodipine and lisinopril due to orthostatic hypotension - Continue aspirin and Plavix - Continue statin and Zetia -We will need close follow-up with cardiology to slowly restart medications after acute illness 3. Dm Type 2 - Blood sugars continue to be well controlled - NovoLog 20 units with each meal, plus SSI - Lantus 50 units subcutaneously in the evening VTE prophylaxis: Lovenox daily CODE STATUS: FULL CODE Dispo: Possible discharge in next coming days as oxygen requirements with activity decrease. Patient will be discharged home with walker. She has had deconditioning due to extended length of stay of hospitalization and acute illness. She is in need of a walker with 4 wheels and a seat as activity and tolerance is quite limited. She is in need of rest periods and would benefit from a walker with a seat. She will also likely have oxygen therapy at home.
[2020-04-07] MEDS: atorvaSTATin 40 MG Tab PO SCH (20:02)
[2020-04-07] MEDS: Aloe Vera/Sodium Chloride Gel 14.1 GM Tube NAS PRN (21:42)
[2020-04-07] MEDS: Insulin Glargine,Human Rec. Analog 100 Units/ML 3 ML Pen SUBCUT SCH (21:44)
[2020-04-08] MEDS: Nystatin Topical Powder 15 GM Bottle TOP SCH (06:17)
[2020-04-08 07:06] LABS: BLOOD UREA NITROGEN,BUN 17 mg/dL (7.0-18.0); CARBON DIOXIDE,CO2 31.6 mmol/L (21.0-32.0); CHLORIDE,CL 105 mmol/L (98-107); GLUCOSE RANDOM 136 mg/dL (74-106); POTASSIUM,K 4.3 mmol/L (3.5-5.1); SODIUM,NA 141 mmol/L (136-145)
[2020-04-08] MEDS: Insulin Aspart 100 Units/ML 3 ML Pen SUBCUT SCH ×4 (07:34→12:12)
[2020-04-08] MEDS: Sertraline 100 MG Tab PO SCH (08:52)
[2020-04-08] MEDS: Aspirin 81 MG Tab.Chew PO SCH (08:52)
[2020-04-08] MEDS: Clopidogrel 75 MG Tab PO SCH (08:52)
[2020-04-08] MEDS: Carvedilol 6.25 MG Tab PO SCH (08:53)
[2020-04-08] MEDS: Pantoprazole 40 MG Tab.CR PO SCH (08:53)
[2020-04-08] MEDS: Furosemide 40 MG Tab PO SCH (08:53)
[2020-04-08] MEDS ORDERED: Enoxaparin 40 MG/0.4 ML Syringe SUBCUT SCH (09:00)
[2020-04-08] MEDS: Fluticasone Propionate 110 MCG/Puff 12 GM Inhaler INH SCH (09:25)
--- NOTE | 2020-04-08 13:16 | PCM.DCSUM1 ---
Discharge Summary - Hospital Course Brief History: Patient is a 49-year-old female with a PMHx of CAD requiring stents 2x recently, CHF, HTN, HLD, DMII, TIA, as well as a recent admission for COVID 19. Pt returns with complaints of recurrent syncopal episodes, chest pain, shortness of breath, cough and fatigue since 3 days. Denies any alleviating or aggravating factors. Does mention associated chest pain 3/10 on the pain scale, described as a tightness intermittent in nature. Also shares that she recently had her BP medications adjusted prior to previous discharge. States that she records her blood pressures daily at home and has found a significant change of her systolic typically ranging in the 190's to 90's in the recent days. Furthermore, patient denies any fever, chills, headache, change in vision, abdominal pain, nausea, vomiting, diarrhea, constipation or dysuria or changes in weight or appetite. Diagnosis: Stroke: No Modified Magdy Scale: No Symptoms at All Modified Audubon Scale Score: 0 - Discharge Data Discharge Date: 04/08/20 Discharge Disposition: Home, Self-Care 01 Condition: Stable - Referral to Home Health Primary Care Physician: Rachel Koch MD - Discharge Diagnosis/Problem(s) (1) CORNELIA (acute kidney injury) SNOMED Code(s): 70870988, 21025631 ICD Code: N17.9 - ACUTE KIDNEY FAILURE, UNSPECIFIED Status: Resolved Current Visit: Yes (2) COVID-19 SNOMED Code(s): 983185143 ICD Code: U07.1 - COVID-19 Status: Acute Current Visit: Yes (3) Chest pain, rule out acute myocardial infarction SNOMED Code(s): 86306246 ICD Code: R07.9 - CHEST PAIN, UNSPECIFIED Status: Resolved Current Visit: Yes (4) Orthostatic hypotension SNOMED Code(s): 06743999 ICD Code: I95.1 - ORTHOSTATIC HYPOTENSION Status: Acute Current Visit: Yes (5) Syncope SNOMED Code(s): 136487602 ICD Code: R55 - SYNCOPE AND COLLAPSE Status: Acute Current Visit: Yes Qualifiers: Syncope type: unspecified Qualified Code(s): R55 - Syncope and collapse (6) (HFpEF) heart failure with preserved ejection fraction SNOMED Code(s): 783198274 ICD Code: I50.30 - UNSPECIFIED DIASTOLIC (CONGESTIVE) HEART FAILURE Status: Acute Current Visit: No Qualifiers: Heart failure chronicity: acute on chronic Qualified Code(s): I50.33 - Acute on chronic diastolic (congestive) heart failure (7) Acute respiratory failure with hypoxia SNOMED Code(s): 01663312, 989010794 ICD Code: J96.01 - ACUTE RESPIRATORY FAILURE WITH HYPOXIA Status: Acute Current Visit: No (8) DM type 2 (diabetes mellitus, type 2) SNOMED Code(s): 01688908 ICD Code: E11.9 - TYPE 2 DIABETES MELLITUS WITHOUT COMPLICATIONS Status: Chronic Current Visit: No Qualifiers: Diabetes mellitus moth exterminator insulin use: with halfway use Diabetes mellitus complication status: with hyperglycemia Qualified Code(s): E11.65 - Type 2 diabetes mellitus with hyperglycemia; Z79.4 - exterminator termite (current) use of insulin (9) HLD (hyperlipidemia) SNOMED Code(s): 85179488 ICD Code: E78.5 - HYPERLIPIDEMIA, UNSPECIFIED Status: Chronic Current Visit: No (10) HTN (hypertension) SNOMED Code(s): 92844518 ICD Code: I10 - ESSENTIAL (PRIMARY) HYPERTENSION Status: Chronic Current Visit: No (11) Obesity SNOMED Code(s): 737747984, 259471989 ICD Code: E66.9 - OBESITY, UNSPECIFIED Status: Chronic Current Visit: No Qualifiers: Serious obesity comorbidity presence: with serious comorbidity (12) History of CVA (cerebrovascular accident) SNOMED Code(s): 297641410 ICD Code: Z86.73 - PRSNL HX OF TIA (TIA), AND CEREB INFRC W/O RESID DEFICITS Status: Acute Current Visit: Yes (13) Physical deconditioning SNOMED Code(s): 57819667596348 ICD Code: R53.81 - OTHER MALAISE Status: Acute Current Visit: Yes (14) Unsteady gait SNOMED Code(s): 49167356 ICD Code: R26.81 - UNSTEADINESS ON FEET Status: Acute Current Visit: Yes - Patient Summary/Data Hospital Course: Admission diagnoses Acute respiratory failure with hypoxia Syncope COVID-19 infection Orthostatic hypotension Discharge diagnoses Acute respiratory failure with hypoxia-resolved COVID-19 infection Syncope resolved CORNELIA resolved Other PMH DM type II Obesity Carotid stenosis CVA HTN HLD HFpEF Maria was admitted secondary to syncope along with noted orthostatic hypotension. She is also noted to be significantly hypoxic she was recently discharged from the hospital secondary to acute on chronic heart failure exacerbation and was found to be Covid positive. She reported after the weekend she had significant hypoxia and fatigue and malaise at home. Along with blood pressures that had dropped significantly from baseline. During her admission previous she was treated aggressively with diuretics along with dose adjustments of medications for heart failure. When she was admitted she was placed on high flow nasal cannula. She had previously received full treatment with remdesivir and part treatment with dexamethasone. She was placed then on Levaquin as well as dexamethasone. She was also treated with IV fluids for CORNELIA which resolved along with holding Lasix. She continued had significant orthostatic hypotension during her stay which improved recently. Blood pressure medications have been on hold Coreg and Lasix have slowly been restarted. Today spironolactone as well as lisinopril remain on hold secondary to softer blood pressures. These will need to be restarted as an outpatient and close monitoring by PCP and/or cardiology. She had significant length of stay secondary to acute hypoxic respiratory failure and the need for high amounts of oxygen. She remained on 10 L for a large period of her admission. She was placed on BiPAP 04/02 which then significantly improved oxygenation. She was monitored and ruled out for pulmonary emboli with CTA x2. She was treated with Lovenox 40 mg twice daily to prevent any clotting. Today she remains on 2 L nasal cannula at rest satting in the mid to low 90s. On room air she drops to 89%. With exercise her oxygen dropped to 80% on room air. At 3 L nasal cannula exercise she is satting 90%. She will be discharged home with 2 L nasal cannula oxygen to increase to 3 L with activity as needed. I did discuss at length with her continue to monitor her weight and heart failure medications. She will need close follow-up with PCP. I did speak with her regarding discharge and all questions were asked and answered. She will be discharged home today continue home medications including Coreg Lasix Plavix aspirin. Other medications including diabetic medications continue at home dosing. Dexamethasone was completed as well as Levaquin. She is to return to PCP and cardiology as scheduled return to ER or clinic sooner if concerns should arise. She is to monitor oxygen saturations at home with pulse oximetry. and her both state they have a monitor at home. - Patient Instructions Diet: Heart Healthy Diet, Diabetic Diet Activity: No Strenuous Activities Driving: Do Not Drive Showering/Bathing: May Shower Notify Provider of: Fever, Increased Pain, Swelling and Redness, Drainage, Nausea and/or Vomiting Other/Special Instructions: monitor weight daily. Monitor oxygen saturations. Keep above 90%. If you notice them dropping below 90% significant amount of time and feeling more short of breath please return to ER for evaluation - Discharge Plan *PRESCRIPTION DRUG MONITORING PROGRAM REVIEWED*: No *COPY OF PRESCRIPTION DRUG MONITORING REPORT IN PATIENT YIN: No Prescriptions/Med Rec: Aloe Vera/Sodium Chloride [Ponca Saline Nasal Gel] 1 applic EZE Q2H PRN #1 tube PRN Reason: Nasal Dryness carvediloL [Coreg] 6.25 mg PO BID #60 tablet Home Medications: Home Meds Aspirin 81 mg PO DAILY tab.chew 09/08/18 [Rx] Insulin Aspart [NovoLOG] See Protocol SUBCUT TIDAC #1 box 09/08/18 [Rx] Pen Needle, Diabetic [Pen Needle] 1 each MC QID #1 box 09/08/18 [Rx] atorvaSTATin [Lipitor] 80 mg PO BEDTIME #60 tablet 09/08/18 [Rx] Insulin Degludec [Tresiba] 56 unit SQ BEDTIME 03/12/20 [History] Clopidogrel [Plavix] 75 mg PO DAILY 03/13/20 [History] Fluticasone Propionate [Flovent HFA 110 MCG] 2 inh IH BID 03/13/20 [History] Nitroglycerin 0.4 mg SL .EVERY 5 MINUTES PRN 03/13/20 [History] Potassium Chloride [Klor-Con M20] 20 meq PO BID 03/13/20 [History] Sertraline [Zoloft] 200 mg PO DAILY 03/13/20 [History] Albuterol/Ipratropium [Combivent Respimat] 1 puff INH Q4H PRN inhaler 03/17/20 [Rx] Benzonatate [Tessalon Perle] 200 mg PO TID PRN #30 capsule 03/17/20 [Rx] Pantoprazole Sodium [Protonix] 20 mg PO DAILY #30 tablet.dr 03/17/20 [Rx] Acetaminophen [Tylenol] 650 mg PO Q4H PRN tablet 12/01/20 [Rx] Aloe Vera/Sodium Chloride [Ponca Saline Nasal Gel] 1 applic EZE Q2H PRN #1 tube 04/08/20 [Rx] Furosemide 40 mg PO DAILY #0 04/08/20 [Rx] Furosemide [Lasix] 40 mg PO DAILY tablet 04/08/20 [Rx] Spironolactone [Aldactone] 12.5 mg PO DAILY #0 04/08/20 [Rx] amLODIPine [Norvasc] 10 mg PO DAILY #60 tablet 04/08/20 [Rx] carvediloL [Coreg] 6.25 mg PO BID #60 tablet 04/08/20 [Rx] lisinopriL [Lisinopril] 5 mg PO DAILY #0 04/08/20 [Rx] Oxygen Therapy Mode: Nasal Cannula Oxygen Flow Rate (L/min): 2 Maintain SPO2% less than: 90 Patient Handouts: COVID-19 Frequently Asked Questions, COVID-19, COVID-19: How to Protect Yourself and Others - CDC, Prevent the Spread of COVID-19 if You Are Sick - [facility] [place] 2] Referrals: Jayleen Haddad MD [Physician] - 05/15/20 2:00 pm Zulema Martinez NP [Nurse Practitioner] - 04/21/20 2:00 pm - Discharge Summary/Plan Comment DC Time >30 min.: Yes (Arranging discharge and ordering oxygen) - Patient Data Vitals - Most Recent: Last Vital Signs Temp 97.2 F 04/08/20 07:47 Pulse 78 04/08/20 08:53 Resp 18 04/08/20 07:47 BP 116/57 L 04/08/20 08:53 Pulse Ox 96 04/08/20 07:47 Orthostatic Blood Pressure [ 102/46 Standing] Orthostatic Blood Pressure [ 100/62 Sitting] Orthostatic Blood Pressure [ 121/65 Supine] Weight - Most Recent: 135.034 kg I&O - Last 24 hours: Intake & Output 04/07/20 04/08/20 04/08/20 22:59 06:59 14:59 Intake Total 500 Output Total 750 Balance -250 Lab Results - Last 24 hrs: Laboratory Results - last 24 hr 11/30/20 11/30/20 12/01/20 Range/Units 17:51 21:40 06:20 WBC (4.0-11.0) K/uL RBC (4.30-5.90) M/uL Hgb (12.0-16.0) g/dL Hct (36.0-46.0) % MCV (80.0-98.0) fL MCH (27.0-32.0) pg MCHC (31.0-37.0) g/dL RDW Std Deviation (28.0-62.0) fl RDW Coeff of Speedy (11.0-15.0) % Plt Count (150-400) K/uL MPV (7.40-12.00) fL Neut % (Auto) (48.0-80.0) % Lymph % (Auto) (16.0-40.0) % [place] % (Auto) (0.0-15.0) % Eos % (Auto) (0.0-7.0) % Baso % (Auto) (0.0-1.5) % Neut # (Auto) (1.4-5.7) K/uL Lymph # (Auto) (0.6-2.4) K/uL [place] # (Auto) (0.0-0.8) K/uL Eos # (Auto) (0.0-0.7) K/uL Baso # (Auto) (0.0-0.1) K/uL Nucleated RBC % /100WBC Nucleated RBCs # K/uL Sodium (136-145) mmol/L Potassium (3.5-5.1) mmol/L Chloride (98-107) mmol/L Carbon Dioxide (21.0-32.0) mmol/L BUN (7.0-18.0) mg/dL Creatinine (0.6-1.0) mg/dL Est Cr Clr Drug Dosing mL/min Estimated GFR (MDRD) ml/min Glucose (74-106) mg/dL POC Glucose 145 H 181 H 125 H (60-110) mg/dL Calcium (8.5-10.1) mg/dL Magnesium (1.8-2.4) mg/dL 04/08/20 04/08/20 04/08/20 Range/Units 06:30 06:30 12:09 WBC 2.77 L (4.0-11.0) K/uL RBC 3.83 L (4.30-5.90) M/uL Hgb 10.2 L (12.0-16.0) g/dL Hct 32.6 L (36.0-46.0) % MCV 85.1 (80.0-98.0) fL MCH 26.6 L (27.0-32.0) pg MCHC 31.3 (31.0-37.0) g/dL RDW Std Deviation 41.5 (28.0-62.0) fl RDW Coeff of Speedy 13 (11.0-15.0) % Plt Count 112 L (150-400) K/uL MPV 9.60 (7.40-12.00) fL Neut % (Auto) 66.4 (48.0-80.0) % Lymph % (Auto) 15.5 L (16.0-40.0) % [place] % (Auto) 12.3 (0.0-15.0) % Eos % (Auto) 5.4 (0.0-7.0) % Baso % (Auto) 0.4 (0.0-1.5) % Neut # (Auto) 1.8 (1.4-5.7) K/uL Lymph # (Auto) 0.4 L (0.6-2.4) K/uL [place] # (Auto) 0.3 (0.0-0.8) K/uL Eos # (Auto) 0.2 (0.0-0.7) K/uL Baso # (Auto) 0.0 (0.0-0.1) K/uL Nucleated RBC % 0.8 /100WBC Nucleated RBCs # 0 K/uL Sodium 141 (136-145) mmol/L Potassium 4.3 (3.5-5.1) mmol/L Chloride 105 (98-107) mmol/L Carbon Dioxide 31.6 (21.0-32.0) mmol/L BUN 17 (7.0-18.0) mg/dL Creatinine 0.7 (0.6-1.0) mg/dL Est Cr Clr Drug Dosing 100.22 mL/min Estimated GFR (MDRD) > 60.0 ml/min Glucose 136 H (74-106) mg/dL POC Glucose 169 H (60-110) mg/dL Calcium 8.3 L (8.5-10.1) mg/dL Magnesium 2.0 (1.8-2.4) mg/dL Med Orders - Current: Current Medications Acetaminophen (Tylenol) 650 mg PO Q4H PRN PRN Reason: Pain Last Admin: 04/07/20 21:41 Dose: 650 mg Documented by: Albuterol/Ipratropium (Duoneb 3.0-0.5 Mg/3 Ml) 3 ml NEB Q4HRRT PRN PRN Reason: Shortness Of Breath/wheezing Albuterol/Ipratropium (Combivent Respimat) 0 gm INH Q4HRRT PRN PRN Reason: Shortness of Breath Last Admin: 04/05/20 20:51 Dose: 1 puff Documented by: Aspirin (Aspirin) 81 mg PO DAILY [facility] Last Admin: 04/08/20 08:52 Dose: 81 mg Documented by: Atorvastatin Calcium (Lipitor) 80 mg PO BEDTIME [facility] Last Admin: 04/07/20 20:02 Dose: 80 mg Documented by: Benzonatate (Tessalon Perles) 200 mg PO TID PRN PRN Reason: Cough Last Admin: 04/07/20 21:42 Dose: 200 mg Documented by: Carvedilol (Coreg) 6.25 mg PO BID [facility] Last Admin: 04/08/20 08:53 Dose: 6.25 mg Documented by: Clopidogrel Bisulfate (Plavix) 75 mg PO DAILY [facility] Last Admin: 04/08/20 08:52 Dose: 75 mg Documented by: Dextrose/Water (Dextrose 50% In Water) 50 ml IVPUSH ASDIRECTED PRN PRN Reason: Hypoglycemia Enoxaparin Sodium (Lovenox) 40 mg SUBCUT DAILY [facility] Last Admin: 04/08/20 08:54 Dose: 40 mg Documented by: Fluticasone Propionate (Flovent Hfa 110 Mcg) 0 gm INH BID [facility] Last Admin: 04/08/20 09:25 Dose: 1 puff Documented by: Furosemide (Lasix) 40 mg PO DAILY [facility] Last Admin: 04/08/20 08:53 Dose: 40 mg Documented by: Glucagon (Glucagen) 1 mg IM ASDIRECTED PRN PRN Reason: Hypoglycemia Insulin Aspart (Novolog) 20 unit SUBCUT TIDAC [facility] Last Admin: 04/08/20 12:11 Dose: 20 unit Documented by: Insulin Aspart (Novolog) 0 unit SUBCUT TIDAC [facility]; Protocol Last Admin: 04/08/20 12:12 Dose: 2 unit Documented by: Insulin Glargine (Lantus Solostar) 50 units SUBCUT BEDTIME [facility] Last Admin: 04/07/20 21:44 Dose: 50 units Documented by: Nitroglycerin (Nitrostat) 0.4 mg SL .EVERY 5 MINUTES PRN PRN Reason: Chest Pain Nystatin (Nystop) 0 gm TOP TID [facility] Last Admin: 04/08/20 06:17 Dose: 1 applic Documented by: Ondansetron HCl (Zofran Odt) 4 mg PO Q4H PRN PRN Reason: nausea, able to take PO Pantoprazole Sodium (Protonix) 40 mg PO DAILY [facility] Last Admin: 04/08/20 08:53 Dose: 40 mg Documented by: Sertraline HCl (Zoloft) 200 mg PO DAILY [facility] Last Admin: 04/08/20 08:52 Dose: 200 mg Documented by: Sodium Chloride (Saline Flush) 10 ml FLUSH ASDIRECTED PRN PRN Reason: Keep Vein Open Last Admin: 03/23/20 19:05 Dose: 10 ml Documented by: Sodium Chloride (Saline Flush) 2.5 ml FLUSH ASDIRECTED PRN PRN Reason: Keep Vein Open Last Admin: 03/23/20 19:05 Dose: 2.5 ml Documented by: Sodium Chloride (Ponca Saline Nasal Gel) 0 gm EZE ASDIRECTED PRN PRN Reason: Nasal Dryness Last Admin: 04/07/20 21:42 Dose: 1 each Documented by: Discontinued Medications Acetaminophen (Tylenol) 650 mg PO NOW ONE Stop: 03/23/20 17:51 Last Admin: 03/23/20 19:08 Dose: 650 mg Documented by: Albuterol/Ipratropium (Combivent Respimat) 0 gm INH QID [facility] Last Admin: 03/30/20 12:25 Dose: 1 inhalation Documented by: Carvedilol (Coreg) 12.5 mg PO BID [facility] Last Admin: 04/04/20 11:24 Dose: Not Given Documented by: Dexamethasone (Dexamethasone) 6 mg PO DAILY [facility] Stop: 04/01/20 09:01 Last Admin: 04/01/20 08:32 Dose: 6 mg Documented by: Dextrose/Water (Dextrose 50% In Water) 50 ml IV ASDIRECTED PRN PRN Reason: Hypoglycemia Dextrose/Water (Dextrose 50% In Water) 50 ml IV ASDIRECTED PRN PRN Reason: Hypoglycemia Dextrose/Water (Dextrose 50% In Water) 50 ml IVPUSH ASDIRECTED PRN PRN Reason: Hypoglycemia Dextrose/Water (Dextrose 50% In Water) 50 ml IVPUSH ASDIRECTED PRN PRN Reason: Hypoglycemia Dextrose/Water (Dextrose 50% In Water) 50 ml IV ASDIRECTED PRN PRN Reason: Hypoglycemia Enoxaparin Sodium (Lovenox) 40 mg SUBCUT Q24H [facility] Last Admin: 03/23/20 23:08 Dose: Not Given Documented by: Enoxaparin Sodium (Lovenox) 40 mg SUBCUT BEDTIME [facility] Last Admin: 03/25/20 20:36 Dose: 40 mg Documented by: Enoxaparin Sodium (Lovenox) 40 mg SUBCUT BID [facility] Last Admin: 04/07/20 08:59 Dose: 40 mg Documented by: Fentanyl (Fentanyl) 100 mcg IVPUSH ONETIME ONE Stop: 03/23/20 16:29 Last Admin: 03/23/20 19:06 Dose: Not Given Documented by: Furosemide (Lasix) 20 mg IVPUSH ONETIME ONE Stop: 03/26/20 11:02 Last Admin: 03/26/20 12:43 Dose: 20 mg Documented by: Furosemide (Lasix) 20 mg IVPUSH ONETIME ONE Stop: 04/02/20 13:07 Last Admin: 04/02/20 14:12 Dose: 20 mg Documented by: Glucagon (Glucagen) 1 mg IM ASDIRECTED PRN PRN Reason: Hypoglycemia Glucagon (Glucagen) 1 mg IM ASDIRECTED PRN PRN Reason: Hypoglycemia Glucagon (Glucagen) 1 mg IM ASDIRECTED PRN PRN Reason: Hypoglycemia Glucagon (Glucagen) 1 mg IM ASDIRECTED PRN PRN Reason: Hypoglycemia Glucagon (Glucagen) 1 mg IM ASDIRECTED PRN PRN Reason: Hypoglycemia Sodium Chloride (Normal Saline) 1,000 mls @ 999 mls/hr IV STAT ONE Stop: 03/23/20 19:08 Last Admin: 03/23/20 19:08 Dose: 999 mls/hr Documented by: Levofloxacin/Dextrose 750 mg/ (Premix) 150 mls @ 100 mls/hr IV Q24H [facility] Last Admin: 03/30/20 20:00 Dose: 100 mls/hr Documented by: Insulin Aspart (Novolog) 0 unit SUBCUT TIDAC [facility]; Protocol Last Admin: 03/25/20 13:20 Dose: Not Given Documented by: Insulin Aspart (Novolog) 4 unit SUBCUT TIDAC [facility] Last Admin: 03/24/20 12:34 Dose: Not Given Documented by: Insulin Aspart (Novolog) 15 unit SUBCUT ONETIME ONE Stop: 03/24/20 12:04 Last Admin: 03/24/20 12:16 Dose: 15 units Documented by: Insulin Aspart (Novolog) 8 unit SUBCUT TIDAC [facility] Last Admin: 03/25/20 13:21 Dose: Not Given Documented by: Insulin Aspart (Novolog) 15 unit SUBCUT ONETIME ONE Stop: 03/24/20 20:45 Last Admin: 03/24/20 21:05 Dose: 15 unit Documented by: Insulin Aspart (Novolog) 20 unit SUBCUT ONETIME ONE Stop: 03/27/20 21:19 [facility] Protocol Insulin Aspart (Novolog) 20 unit SUBCUT ONETIME ONE Stop: 03/26/20 21:19 Last Admin: 03/26/20 21:35 Dose: 20 unit Documented by: Insulin Aspart (Novolog) 10 unit SUBCUT ACBREAKFAST ONE Stop: 03/30/20 08:01 Last Admin: 03/30/20 08:14 Dose: Not Given Documented by: Iopamidol (Isovue Multipack-370 (76%)) 100 ml IVPUSH ONETIME ONE Stop: 03/23/20 17:47 Last Admin: 03/23/20 17:46 Dose: 100 ml Documented by: Iopamidol (Isovue Multipack-370 (76%)) 100 ml IVPUSH ONETIME STA Stop: 03/27/20 12:52 Last Admin: 03/27/20 12:52 Dose: 100 ml Documented by: Iopamidol (Isovue Multipack-370 (76%)) 100 ml IVPUSH ONETIME STA Stop: 03/27/20 14:06 Last Admin: 03/27/20 21:46 Dose: Not Given Documented by:
[2020-04-08] MEDS: Benzonatate 100 MG Cap PO PRN (13:45)
[2020-04-08] MEDS: Acetaminophen 325 MG Tab PO PRN (13:46)
[2020-04-08 13:54] VITALS: BP 98/59; PULSE 83
== END 2020-04-08 15:50 | disposition home or self-care (01) | DRG 137 ==
LOC: MW.ED 14:22 → MW.MS 18:32 → OBSVTOIN 03-25 11:34 → MW.MS 03-28 17:13
PROVIDERS: ADMIT Internal Medicine; ATTEND Internal Medicine
PROC: 5A0945A Assistance with Respiratory Ventilation, 24-96 Consecutive Hours, High Flow/Velocity Cannula (ICD-10-PCS; principal; 2020-03-25)
PROC: 5A09457 Assistance with Respiratory Ventilation, 24-96 Consecutive Hours, Continuous Positive Airway Pressure (ICD-10-PCS; 2020-04-02)
DX: U07.1 COVID-19 (principal); J96.01 Acute respiratory failure with hypoxia; J12.89 Other viral pneumonia; N17.9 Acute kidney failure, unspecified; R07.9 Chest pain, unspecified; I95.1 Orthostatic hypotension; I50.32 Chronic diastolic (congestive) heart failure; E78.5 Hyperlipidemia, unspecified; E66.9 Obesity, unspecified; R26.81 Unsteadiness on feet; I65.29 Occlusion and stenosis of unspecified carotid artery; I11.0 Hypertensive heart disease with heart failure; I24.9 Acute ischemic heart disease, unspecified; E11.9 Type 2 diabetes mellitus without complications; I25.10 Atherosclerotic heart disease of native coronary artery without angina pectoris; G47.30 Sleep apnea, unspecified; J45.909 Unspecified asthma, uncomplicated; M79.7 Fibromyalgia; Z86.73 Personal history of transient ischemic attack (TIA), and cerebral infarction without residual deficits; Z79.82 Long term (current) use of aspirin; Z79.4 Long term (current) use of insulin; Z79.899 Other long term (current) drug therapy; Z79.02 Long term (current) use of antithrombotics/antiplatelets; Z95.5 Presence of coronary angioplasty implant and graft; Z90.710 Acquired absence of both cervix and uterus; Z87.891 Personal history of nicotine dependence
CPT/HCPCS: 36415; 70450; 70450-26; 71045; 71045-26; 71275; 71275-26; 80048; 80053; 81003; 82962; 83605; 83735; 83880; 84100; 84484; 85025; 85379; 85610; 93005; 93010; 94640; 94660; 94664; 96365; 96372; 96376; 99219; 99226; 99232; 99233; 99239; 99284; 99285-25; A9270-GY; G0378; J1650; J1815-GY; J1940; J1956; J7030; J8540; Q9967; U0002

== ENCOUNTER 2020-04-15 13:01 | Inpatient (IN) | payer BC ==
[2020-04-15] MEDS ORDERED: Sodium Chloride 0.9% 2.5 ML Syringe FLUSH PRN (13:10)
[2020-04-15] MEDS ORDERED: Sodium Chloride 0.9% 10 ML Syringe FLUSH PRN (13:10)
--- NOTE | 2020-04-15 13:22 | EDM.PDOC ---
ED HPI GENERAL MEDICAL PROBLEM - General Stated Complaint: TRAUMA ALERT Time Seen by Provider: 04/15/20 13:08 Source of Information: Reports: Patient, EMS History Limitations: Reports: No Limitations - History of Present Illness INITIAL COMMENTS - FREE TEXT/NARRATIVE: 49-year-old female with history of hypoxic respiratory failure, DM 2, sarcoidosis, CHF, pneumonia, Covid on March 23, 2020, CVA, DM, ICA stenosis, ACS was brought in as a trauma alert after she passed out having a bowel movement on the toilet just prior to arrival. She did hit her head with LOC of 30 seconds. She is currently on Plavix. She admits to pain to her left shoulder, headache, neck pain. C-collar placed by EMS prior to arrival. She is normally on 2 L oxygen at home and will increase it to 3 L when ambulating. EMS found her today hypoxic at 85% on 4 L and increased her to 6 L nasal cannula. In the ER here she is 88% on 4 L and we increased it to 6 L. ROS: A 10-point review of systems, other than pertinent positives and negatives as stated per HPI, is otherwise negative Past medical history: No additional pertinent history Past Surgical history: No additional pertinent history Social history: No additional pertinent history Family history: No additional pertinent history PHYSICAL EXAM General: AOx4, GCS = 15, morbid obesity , no distress HEENT: dry mucous membrane, no loose dentition, positive swelling to lower lip, no laceration to the lower lip. Neck: in c-collar Cardiac: S1S2 RRR Respiratory: CTAB, no crackles or rales, no wheezing Abdomen: Soft, nontender, no rebound or guarding, nondistended, no pulsatile mass. Back: nontender Musculoskeletal: NVI distally, left shoulder tenderness, no deformity. Neuro: No focal deficits, CN 2 - 12 WNL. - Related Data Allergies Allergy/AdvReac Type Severity Reaction Status Date / Time No Known Allergies Allergy Verified 03/23/20 23:18 Home Meds: Home Meds Aspirin 81 mg PO DAILY tab.chew 09/08/18 [Rx] Insulin Aspart [NovoLOG] See Protocol SUBCUT TIDAC #1 box 09/08/18 [Rx] Pen Needle, Diabetic [Pen Needle] 1 each MC QID #1 box 09/08/18 [Rx] atorvaSTATin [Lipitor] 80 mg PO BEDTIME #60 tablet 09/08/18 [Rx] Insulin Degludec [Tresiba] 56 unit SQ BEDTIME 03/12/20 [History] Clopidogrel [Plavix] 75 mg PO DAILY 03/13/20 [History] Fluticasone Propionate [Flovent HFA 110 MCG] 2 inh IH BID 03/13/20 [History] Nitroglycerin 0.4 mg SL .EVERY 5 MINUTES PRN 03/13/20 [History] Potassium Chloride [Klor-Con M20] 20 meq PO BID 03/13/20 [History] Sertraline [Zoloft] 200 mg PO DAILY 03/13/20 [History] Albuterol/Ipratropium [Combivent Respimat] 1 puff INH Q4H PRN inhaler 03/17/20 [Rx] Benzonatate [Tessalon Perle] 200 mg PO TID PRN #30 capsule 03/17/20 [Rx] Pantoprazole Sodium [Protonix] 20 mg PO DAILY #30 tablet. 03/17/20 [Rx] Acetaminophen [Tylenol] 650 mg PO Q4H PRN tablet 04/08/20 [Rx] Aloe Vera/Sodium Chloride [Culdesac Saline Nasal Gel] 1 applic EZE Q2H PRN #1 tube 04/08/20 [Rx] Furosemide 40 mg PO DAILY #0 04/08/20 [Rx] Furosemide [Lasix] 40 mg PO DAILY tablet 04/08/20 [Rx] Spironolactone [Aldactone] 12.5 mg PO DAILY #0 04/08/20 [Rx] amLODIPine [Norvasc] 10 mg PO DAILY #60 tablet 04/08/20 [Rx] carvediloL [Coreg] 6.25 mg PO BID #60 tablet 04/08/20 [Rx] lisinopriL [Lisinopril] 5 mg PO DAILY #0 04/08/20 [Rx] Past Medical History HEENT History: Reports: None Cardiovascular History: Reports: CAD, Heart Failure, High Cholesterol, Hypertension, Stents Other Cardiovascular History: two stents placed to mid and proximal LAD on 02/29/2020 at [facility] Respiratory History: Reports: Asthma, Sleep Apnea Gastrointestinal History: Reports: None Genitourinary History: Reports: None 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: Musculoskeletal History: Reports: Fibromyalgia Neurological History: Reports: CVA, Other (See Below) Psychiatric History: Reports: Depression Endocrine/Metabolic History: Reports: Diabetes, Type II, Obesity/BMI 30+ Hematologic History: Reports: None Immunologic History: Reports: None Oncologic (Cancer) History: Reports: None Dermatologic History: Reports: None - Infectious Disease History Infectious Disease History: Reports: None - Past Surgical History Head Surgeries/Procedures: Reports: None HEENT Surgical History: Reports: None Cardiovascular Surgical History: Reports: None Respiratory Surgical History: Reports: Lung Biopsies GI Surgical History: Reports: None Female Surgical History: Reports: Hysterectomy Endocrine Surgical History: Reports: None Neurological Surgical History: Reports: None Musculoskeletal Surgical History: Reports: None Oncologic Surgical History: Reports: None Dermatological Surgical History: Reports: None Social & Family History - Family History Family Medical History: No Pertinent Family History Cardiac: Reports: CAD, Heart Failure, Hypertension, MD Endocrine/Metabolic: Reports: Diabetes, type II - Caffeine Use Caffeine Use: Reports: Coffee, Soda Caffeine Use Comment: 1 cup coffee a day - Living Situation & Occupation Living situation: Reports: Occupation: Employed ED ROS GENERAL - Review of Systems Review Of Systems: See Below (see dictation) ED EXAM, GENERAL - Physical Exam Exam: See Below (see dictation) #1 Interpretation EKG Interpretation Comments: Heart rate = 85 bpm, normal sinus rhythm, normal QRS interval, no STEMI. EKG and rhythm strip interpreted by me at 1432 Course - Vital Signs Last Recorded V/S: Last Vital Signs Temp 96 F L 04/15/20 13:01 Pulse 90 04/15/20 13:01 Resp 19 04/15/20 13:01 BP 140/74 04/15/20 13:01 Pulse Ox 96 04/15/20 13:01 - Orders/Labs/Meds Orders: Active Orders 24 hr Category Date Time Status Patient Status [ADT] Routine ADT 04/15/20 18:18 Ordered Cardiac Monitoring [RC] . DIRECTED Care 04/15/20 13:10 Active EKG Documentation Completion [RC] STAT Care 04/15/20 13:11 Active Nurse Communication: Isolation [RC] ASDIRECTED Care 04/15/20 15:37 Active Pulse Oximetry [RC] ASDIRECTED Care 04/15/20 13:10 Active CORONAVIRUS COVID-19 EDDIE [MOLEC] Stat Lab 04/15/20 13:15 Ordered CULTURE BLOOD [BC] Stat Lab 04/15/20 15:32 Received CULTURE BLOOD [BC] Stat Lab 04/15/20 15:53 Received PROCALCITONIN [REF] Stat Lab 04/15/20 13:20 Received UA W/SCAR RFLX IF INDICATED [URIN] Stat Lab 04/15/20 13:11 Ordered Sodium Chloride 0.9% [Saline Flush] Med 04/15/20 13:10 Active 10 ml FLUSH ASDIRECTED PRN Sodium Chloride 0.9% [Saline Flush] Med 04/15/20 13:10 Active 2.5 ml FLUSH ASDIRECTED PRN Blood Culture x2 Reflex Set [OM.PC] Stat Oth 04/15/20 13:11 Ordered Isolation [COMM] Stat Oth 04/15/20 15:36 Active Saline Lock Insert [OM.PC] Stat Oth 04/15/20 13:10 Ordered Medication Orders Sodium Chloride (Saline Flush) 10 ml FLUSH ASDIRECTED PRN PRN Reason: Keep Vein Open Sodium Chloride (Saline Flush) 2.5 ml FLUSH ASDIRECTED PRN PRN Reason: Keep Vein Open Labs: Laboratory Tests 04/15/20 04/15/20 04/15/20 Range/Units 13:20 13:20 13:20 WBC 3.63 L (4.0-11.0) K/uL RBC 3.69 L (4.30-5.90) M/uL Hgb 9.8 L (12.0-16.0) g/dL Hct 31.8 L (36.0-46.0) % MCV 86.2 (80.0-98.0) fL MCH 26.6 L (27.0-32.0) pg MCHC 30.8 L (31.0-37.0) g/dL RDW Std Deviation 45.4 (28.0-62.0) fl RDW Coeff of Speedy 15 (11.0-15.0) % Plt Count 142 L (150-400) K/uL MPV 10.20 (7.40-12.00) fL Neut % (Auto) 69.7 (48.0-80.0) % Lymph % (Auto) 14.3 L (16.0-40.0) % Weber % (Auto) 13.5 (0.0-15.0) % Eos % (Auto) 2.5 (0.0-7.0) % Baso % (Auto) 0.0 (0.0-1.5) % Neut # (Auto) 2.5 (1.4-5.7) K/uL Lymph # (Auto) 0.5 L (0.6-2.4) K/uL Weber # (Auto) 0.5 (0.0-0.8) K/uL Eos # (Auto) 0.1 (0.0-0.7) K/uL Baso # (Auto) 0.0 (0.0-0.1) K/uL Nucleated RBC % 0.0 /100WBC Nucleated RBCs # 0 K/uL INR APTT (18.6-31.3) SEC D-Dimer, Quantitative (0.0-0.50) mg/L FEU ABG pH (7.35-7.45) ABG pCO2 (35-45) mmHG ABG pO2 (75-100) mmHG ABG HCO3 (22-26) mEq/L ABG Total CO2 ABG Base Excess (-2.0-2.0) Lactate 3.1 H* (0.20-2.00) mmol/L Sodium 140 (136-145) mmol/L Potassium 4.0 (3.5-5.1) mmol/L Chloride 104 (98-107) mmol/L Carbon Dioxide 26.2 (21.0-32.0) mmol/L BUN 12 (7.0-18.0) mg/dL Creatinine 0.8 (0.6-1.0) mg/dL Est Cr Clr Drug Dosing TNP Estimated GFR (MDRD) > 60.0 ml/min Glucose 203 H (74-106) mg/dL Calcium 8.2 L (8.5-10.1) mg/dL Phosphorus 4.0 (2.6-4.7) mg/dL Magnesium 1.7 L (1.8-2.4) mg/dL Ferritin (8-252) ng/mL Total Bilirubin 0.5 (0.2-1.0) mg/dL AST 20 (15-37) IU/L ALT 33 (14-63) IU/L Alkaline Phosphatase 97 (46-116) U/L Lactate Dehydrogenase (81-234) U/L Troponin I < 0.050 (0.000-0.056) ng/mL C-Reactive Protein (0.00-0.90) mg/dL B-Natriuretic Peptide (<100) PG/ML Total Protein 6.2 L (6.4-8.2) g/dL Albumin 2.4 L (3.4-5.0) g/dL Globulin 3.8 (2.6-4.0) g/dL Albumin/Globulin Ratio 0.6 L (0.9-1.6) Blood Type Antibody Screen 04/15/20 04/15/20 04/15/20 Range/Units 13:20 13:20 13:20 WBC (4.0-11.0) K/uL RBC (4.30-5.90) M/uL Hgb (12.0-16.0) g/dL Hct (36.0-46.0) % MCV (80.0-98.0) fL MCH (27.0-32.0) pg MCHC (31.0-37.0) g/dL RDW Std Deviation (28.0-62.0) fl RDW Coeff of Speedy (11.0-15.0) % Plt Count (150-400) K/uL MPV (7.40-12.00) fL Neut % (Auto) (48.0-80.0) % Lymph % (Auto) (16.0-40.0) % Weber % (Auto) (0.0-15.0) % Eos % (Auto) (0.0-7.0) % Baso % (Auto) (0.0-1.5) % Neut # (Auto) (1.4-5.7) K/uL Lymph # (Auto) (0.6-2.4) K/uL Weber # (Auto) (0.0-0.8) K/uL Eos # (Auto) (0.0-0.7) K/uL Baso # (Auto) (0.0-0.1) K/uL Nucleated RBC % /100WBC Nucleated RBCs # K/uL INR 1.08 APTT 33.0 H (18.6-31.3) SEC D-Dimer, Quantitative (0.0-0.50) mg/L FEU ABG pH (7.35-7.45) ABG pCO2 (35-45) mmHG ABG pO2 (75-100) mmHG ABG HCO3 (22-26) mEq/L ABG Total CO2 ABG Base Excess (-2.0-2.0) Lactate (0.20-2.00) mmol/L Sodium (136-145) mmol/L Potassium (3.5-5.1) mmol/L Chloride (98-107) mmol/L Carbon Dioxide (21.0-32.0) mmol/L BUN (7.0-18.0) mg/dL Creatinine (0.6-1.0) mg/dL Est Cr Clr Drug Dosing Estimated GFR (MDRD) ml/min Glucose (74-106) mg/dL Calcium (8.5-10.1) mg/dL Phosphorus (2.6-4.7) mg/dL Magnesium (1.8-2.4) mg/dL Ferritin (8-252) ng/mL Total Bilirubin (0.2-1.0) mg/dL AST (15-37) IU/L ALT (14-63) IU/L Alkaline Phosphatase (46-116) U/L Lactate Dehydrogenase 390 H (81-234) U/L Troponin I (0.000-0.056) ng/mL C-Reactive Protein 9.60 H (0.00-0.90) mg/dL B-Natriuretic Peptide 94 (<100) PG/ML Total Protein (6.4-8.2) g/dL Albumin (3.4-5.0) g/dL Globulin (2.6-4.0) g/dL Albumin/Globulin Ratio (0.9-1.6) Blood Type Antibody Screen 04/15/20 04/15/20 04/15/20 Range/Units 13:20 13:20 13:48 WBC (4.0-11.0) K/uL RBC (4.30-5.90) M/uL Hgb (12.0-16.0) g/dL Hct (36.0-46.0) % MCV (80.0-98.0) fL MCH (27.0-32.0) pg MCHC (31.0-37.0) g/dL RDW Std Deviation (28.0-62.0) fl RDW Coeff of Speedy (11.0-15.0) % Plt Count (150-400) K/uL MPV (7.40-12.00) fL Neut % (Auto) (48.0-80.0) % Lymph % (Auto) (16.0-40.0) % Weber % (Auto) (0.0-15.0) % Eos % (Auto) (0.0-7.0) % Baso % (Auto) (0.0-1.5) % Neut # (Auto) (1.4-5.7) K/uL Lymph # (Auto) (0.6-2.4) K/uL Weber # (Auto) (0.0-0.8) K/uL Eos # (Auto) (0.0-0.7) K/uL Baso # (Auto) (0.0-0.1) K/uL Nucleated RBC % /100WBC Nucleated RBCs # K/uL INR APTT (18.6-31.3) SEC D-Dimer, Quantitative 1.48 H (0.0-0.50) mg/L FEU ABG pH 7.435 (7.35-7.45) ABG pCO2 43 (35-45) mmHG ABG pO2 107 H (75-100) mmHG ABG HCO3 29 H (22-26) mEq/L ABG Total CO2 27.0 ABG Base Excess 4.1 H (-2.0-2.0) Lactate (0.20-2.00) mmol/L Sodium (136-145) mmol/L Potassium (3.5-5.1) mmol/L Chloride (98-107) mmol/L Carbon Dioxide (21.0-32.0) mmol/L BUN (7.0-18.0) mg/dL Creatinine (0.6-1.0) mg/dL Est Cr Clr Drug Dosing Estimated GFR (MDRD) ml/min Glucose (74-106) mg/dL Calcium (8.5-10.1) mg/dL Phosphorus (2.6-4.7) mg/dL Magnesium (1.8-2.4) mg/dL Ferritin 278 H (8-252) ng/mL Total Bilirubin (0.2-1.0) mg/dL AST (15-37) IU/L ALT (14-63) IU/L Alkaline Phosphatase (46-116) U/L Lactate Dehydrogenase (81-234) U/L Troponin I (0.000-0.056) ng/mL C-Reactive Protein (0.00-0.90) mg/dL B-Natriuretic Peptide (<100) PG/ML Total Protein (6.4-8.2) g/dL Albumin (3.4-5.0) g/dL Globulin (2.6-4.0) g/dL Albumin/Globulin Ratio (0.9-1.6) Blood Type Antibody Screen 04/15/20 04/15/20 04/15/20 Range/Units 15:32 15:53 18:12 WBC (4.0-11.0) K/uL RBC (4.30-5.90) M/uL Hgb (12.0-16.0) g/dL Hct (36.0-46.0) % MCV (80.0-98.0) fL MCH (27.0-32.0) pg MCHC (31.0-37.0) g/dL RDW Std Deviation (28.0-62.0) fl RDW Coeff of Speedy (11.0-15.0) % Plt Count (150-400) K/uL MPV (7.40-12.00) fL Neut % (Auto) (48.0-80.0) % Lymph % (Auto) (16.0-40.0) % Weber % (Auto) (0.0-15.0) % Eos % (Auto) (0.0-7.0) % Baso % (Auto) (0.0-1.5) % Neut # (Auto) (1.4-5.7) K/uL Lymph # (Auto) (0.6-2.4) K/uL Weber # (Auto) (0.0-0.8) K/uL Eos # (Auto) (0.0-0.7) K/uL Baso # (Auto) (0.0-0.1) K/uL Nucleated RBC % /100WBC Nucleated RBCs # K/uL INR APTT (18.6-31.3) SEC D-Dimer, Quantitative (0.0-0.50) mg/L FEU ABG pH (7.35-7.45) ABG pCO2 (35-45) mmHG ABG pO2 (75-100) mmHG ABG HCO3 (22-26) mEq/L ABG Total CO2 ABG Base Excess (-2.0-2.0) Lactate 1.0 0.9 (0.20-2.00) mmol/L Sodium (136-145) mmol/L Potassium (3.5-5.1) mmol/L Chloride (98-107) mmol/L Carbon Dioxide (21.0-32.0) mmol/L BUN (7.0-18.0) mg/dL Creatinine (0.6-1.0) mg/dL Est Cr Clr Drug Dosing Estimated GFR (MDRD) ml/min Glucose (74-106) mg/dL Calcium (8.5-10.1) mg/dL Phosphorus (2.6-4.7) mg/dL Magnesium (1.8-2.4) mg/dL Ferritin (8-252) ng/mL Total Bilirubin (0.2-1.0) mg/dL AST (15-37) IU/L ALT (14-63) IU/L Alkaline Phosphatase (46-116) U/L Lactate Dehydrogenase (81-234) U/L Troponin I (0.000-0.056) ng/mL C-Reactive Protein (0.00-0.90) mg/dL B-Natriuretic Peptide (<100) PG/ML Total Protein (6.4-8.2) g/dL Albumin (3.4-5.0) g/dL Globulin (2.6-4.0) g/dL Albumin/Globulin Ratio (0.9-1.6) Blood Type O NEGATIVE Antibody Screen NEGATIVE Meds: Medications Generic Name Dose Route Start Last Admin Trade Name Freq PRN Reason Stop Dose Admin Sodium Chloride 10 ml 04/15/20 13:10 Saline Flush FLUSH ASDIRECTED PRN Keep Vein Open Sodium Chloride 2.5 ml 04/15/20 13:10 Saline Flush FLUSH ASDIRECTED PRN Keep Vein Open Discontinued Medications Generic Name Dose Route Start Last Admin Trade Name Cliff PRN Reason Stop Dose Admin Cefepime HCl 2 gm/ Premix 50 mls @ 100 mls/hr 04/15/20 15:11 04/15/20 16:26 IV 04/15/20 15:40 100 mls/hr ONETIME ONE Administration Vancomycin HCl 2 gm/ Premix 400 mls @ 200 mls/hr 04/15/20 16:00 04/15/20 16:25 IV 04/15/20 17:59 200 mls/hr ONETIME ONE Administration Iopamidol 80 ml 04/15/20 16:52 04/15/20 16:52 Isovue Multipack-370 (76%) IVPUSH 04/15/20 16:53 80 ml ONETIME STA Administration Vancomycin HCl 2,250 mg 04/15/20 15:17 04/15/20 16:26 Vancomycin IV 04/15/20 15:18 Not Given STAT STA - Re-Assessments/Exams Free Text/Narrative Re-Assessment/Exam: 04/15/20 18:[address] fuller, who agrees to admit patient. The hospitalist's documentation supersedes all other documentation on this patient with regard to any conflicts or discrepancies from this point forward. Any emergency conditions have been treated to the ability of the ED prior to admission. Departure - Departure Time of Disposition: 18:19 Disposition: Refer to Observation Condition: Good Clinical Impression: Healthcare-associated pneumonia, Hypoxia Syncope Qualifiers: Syncope type: unspecified Qualified Code(s): R55 - Syncope and collapse - Discharge Information *PRESCRIPTION DRUG MONITORING PROGRAM REVIEWED*: Not Applicable *COPY OF PRESCRIPTION DRUG MONITORING REPORT IN PATIENT YIN: Not Applicable Instructions: Hypoxemia Referrals: Rachel Koch MD [Primary Care Provider] - Sepsis Event Note (ED) - Focused Exam Vital Signs: Vital Signs Temp Pulse Resp BP Pulse Ox 04/15/20 13:01 96 F L 90 19 140/74 96 - My Orders Last 24 Hours: My Active Orders 04/15/20 13:10 Cardiac Monitoring [RC] . DIRECTED Pulse Oximetry [RC] ASDIRECTED Sodium Chloride 0.9% [Saline Flush] 10 ml FLUSH ASDIRECTED PRN Sodium Chloride 0.9% [Saline Flush] 2.5 ml FLUSH ASDIRECTED PRN Saline Lock Insert [OM.PC] Stat 04/15/20 13:11 EKG Documentation Completion [RC] STAT UA W/SCAR RFLX IF INDICATED [URIN] Stat Blood Culture x2 Reflex Set [OM.PC] Stat 04/15/20 13:15 CORONAVIRUS COVID-19 EDDIE [MOLEC] Stat 04/15/20 13:20 PROCALCITONIN [REF] Stat 04/15/20 15:32 CULTURE BLOOD [BC] Stat 04/15/20 15:36 Isolation [COMM] Stat 04/15/20 15:37 Nurse Communication: Isolation [RC] ASDIRECTED 04/15/20 15:53 CULTURE BLOOD [BC] Stat 04/15/20 18:18 Patient Status [ADT] Routine - Assessment/Plan Last 24 Hours: My Active Orders 04/15/20 13:10 Cardiac Monitoring [RC] . DIRECTED Pulse Oximetry [RC] ASDIRECTED Sodium Chloride 0.9% [Saline Flush] 10 ml FLUSH ASDIRECTED PRN Sodium Chloride 0.9% [Saline Flush] 2.5 ml FLUSH ASDIRECTED PRN Saline Lock Insert [OM.PC] Stat 04/15/20 13:11 EKG Documentation Completion [RC] STAT UA W/SCAR RFLX IF INDICATED [URIN] Stat Blood Culture x2 Reflex Set [OM.PC] Stat 04/15/20 13:15 CORONAVIRUS COVID-19 EDDIE [MOLEC] Stat 04/15/20 13:20 PROCALCITONIN [REF] Stat 04/15/20 15:32 CULTURE BLOOD [BC] Stat 04/15/20 15:36 Isolation [COMM] Stat 04/15/20 15:37 Nurse Communication: Isolation [RC] ASDIRECTED 04/15/20 15:53 CULTURE BLOOD [BC] Stat 04/15/20 18:18 Patient Status [ADT] Routine
--- NOTE | 2020-04-15 14:28 | CT ---
Indication: Fall Technique: Volumetric multidetector CT images of the head were obtained without the administration of low osmolar intravenous contrast. Comparison: None available Findings: There is no intra-axial or extra-axial fluid collection. There is no mass effect or midline shift. The ventricles and sulci are normal in size and position for age. There is questionable if old lacune versus Virchow Javier space in the right basal ganglia. The brain parenchyma is grossly preserved in attenuation and ferrell-white differentiation. The orbits and their contents are grossly within normal limits. The bony calvarium is grossly intact. There is minimal mucosal thickening within the paranasal sinuses and bubbly secretion in the ethmoid air cells. The mastoid air cells are well aerated. Impression: No acute intracranial abnormality. Please note that all CT scans at this facility use dose modulation, iterative reconstruction, and/or weight-based dosing when appropriate to reduce radiation dose to as low as reasonably achievable. Dictated by Ernesto Ohara MD @ Apr 15 2020 2:20PM Signed by Dr. Ernesto Ohara @ Apr 15 2020 2:25PM
[2020-04-15 14:29] LABS: BLOOD UREA NITROGEN,BUN 12 mg/dL (7.0-18.0); CARBON DIOXIDE,CO2 26.2 mmol/L (21.0-32.0); CHLORIDE,CL 104 mmol/L (98-107); GLUCOSE RANDOM 203 mg/dL (74-106); SODIUM,NA 140 mmol/L (136-145)
--- NOTE | 2020-04-15 14:36 | CT ---
Indication: Fall Technique: Volumetric multidetector CT images of the cervical spine were obtained without the administration of IV contrast. Comparison: None available. Findings: The cervical vertebral body heights are grossly maintained. There is mild straightening of the normal cervical lordosis with trace anterolisthesis of C4 on C5. The intervertebral discs are grossly preserved in height with minimal early degenerative osteophyte formation.. There is moderate facet arthrosis appreciated. The visualized lung apices demonstrate extensive interstitial and airspace opacities likely representing multifocal infiltrates. Additionally, there is demonstration of a pathologically enlarged right supraclavicular lymph node on series 8, image 58 measuring up to 3.3 centimeters in greatest dimension. Impression: Mild degenerative changes of the cervical spine without evidence of displaced fracture. Incidental note is made of a pathologic right supraclavicular lymph node measuring 3.3 centimeters for which further evaluation with focal ultrasound versus CT soft tissue neck with contrast may be useful for improved characterization. Please note that all CT scans at this facility use dose modulation, iterative reconstruction, and/or weight-based dosing when appropriate to reduce radiation dose to as low as reasonably achievable. Dictated by Ernesto Ohara MD @ Apr 15 2020 2:20PM Signed by Dr. Ernesto Ohara @ Apr 15 2020 2:34PM
--- NOTE | 2020-04-15 15:01 | CT ---
Indication: Fall Technique: Volumetric multidetector CT images of the chest were obtained without the administration of IV contrast. Comparison: CT angiography March 27, 2020 Findings: There is demonstration of a pathologic right infraclavicular lymph node seen on series 3, image 118 measuring 2.7 centimeters, poorly visualized on comparison due to contrast bolus. The thoracic aorta is nonaneurysmal. There are again seen multiple bulky mediastinal and hilar lymph nodes similar to previous exam the largest in the right paratracheal space measuring up to 3.7 centimeters. There is central bronchial thickening again noted. Otherwise the trachea as well aerated. There is progression of previously seen ground-glass opacities with overall increased airspace consolidation, pulmonary reticulation and additional ground-glass opacities likely representing progression of multifocal viral infiltrates. There is demonstration of small basilar pleural effusions with adjacent compressive atelectasis. There is demonstration of trace pericardial fluid. There is no evidence of pulmonary mass or suspicious pulmonary nodule. The partially visualized upper abdomen again demonstrates hepatosplenomegaly. The thoracic vertebral body heights are grossly maintained with mild multi-level degenerative disc disease. There is no significant spondylolisthesis or displaced fracture. Impression: Overall progression and worsening of multiple interstitial, ground-glass and airspace opacities of the bilateral hemithoraces likely representing worsening bilateral infiltrates with new trace basilar pleural effusions. Extensive pathologically enlarged mediastinal and hilar lymph nodes are again seen with improved characterization of a pathologic right infraclavicular lymph node. These could represent reactive changes however a superimposed underlying lymphoproliferative malignancy is not entirely excluded. Correlate with history of clinical symptoms. Please note that all CT scans at this facility use dose modulation, iterative reconstruction, and/or weight-based dosing when appropriate to reduce radiation dose to as low as reasonably achievable. Dictated by Ernesto Ohara MD @ Apr 15 2020 2:50PM Signed by Dr. Ernesto Ohara @ Apr 15 2020 2:59PM
[2020-04-15] MEDS ORDERED: Cefepime 2 GM in Premix Bag 1 BAG IV ONE (15:11)
[2020-04-15] MEDS ORDERED: Vancomycin 500 MG SDV IV STA (15:17)
--- NOTE | 2020-04-15 15:56 | CR ---
Indication: Pain and fall Comparison: CT chest without contrast January 14 Technique: AP and scapular Y views left shoulder were obtained Findings: There is no displaced fracture or dislocation. Degenerative change of the acromioclavicular and glenohumeral joints are appreciated with marginal osteophyte formation. The soft tissues are unremarkable. Impression: Degenerative changes of the shoulder without evidence of definite acute osseous abnormality. Dictated by Ernesto Ohara MD @ Apr 15 2020 3:49PM Signed by Dr. Ernesto Ohara @ Apr 15 2020 3:55PM
[2020-04-15] MEDS ORDERED: Vancomycin/Water for INJ (PEG) 2 GM in Premix Bag 1 BAG IV ONE (16:00)
[2020-04-15] MEDS ORDERED: Iopamidol 755 MG/ML 500 ML Multipack Bottle IVPUSH STA (16:52)
--- NOTE | 2020-04-15 17:41 | CT ---
Indication: Dyspnea, rule out pulmonary embolus Technique: Volumetric multidetector CT images of the chest were obtained after the administration of IV contrast. 80 cc Isovue 370 low osmolar Comparison: CT chest without contrast April 15, [address] angiography March 27, 2020 Findings: The thoracic inlet again demonstrates partial visualization of a enlarged right infraclavicular lymph node, better appreciated on recent comparison. The thoracic aorta is nonaneurysmal. There is no central filling defect to suggest pulmonary embolism. There are extensive pathologically enlarged mediastinal, hilar and subcarinal lymph nodes again seen. There is moderate central bronchial thickening with traction bronchiectasis. 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 There is no evidence of pulmonary mass or suspicious pulmonary nodule. The partially visualized upper abdomen again demonstrates moderate hepatosplenomegaly. The thoracic vertebral body heights remain intact alignment without significant degenerative change or acute osseous abnormality. Impression: No evidence of pulmonary embolus. Overall no significant change in recent noncontrast comparison with extensive progression of interstitial and airspace opacities as well as small bibasilar pleural effusions. Extensive pathologic supraclavicular, mediastinal, hilar and subcarinal lymph nodes are again seen which could be reactive in nature, however underlying lymphoproliferative malignancy such as lymphoma is not entirely excluded. Follow-up with additional surveillance and/or bronchoscopy and tissue sampling is recommended if there remains persisting concern. Please note that all CT scans at this facility use dose modulation, iterative reconstruction, and/or weight-based dosing when appropriate to reduce radiation dose to as low as reasonably achievable. Dictated by Ernesto Ohara MD @ Apr 15 2020 5:29PM Signed by Dr. Ernesto Ohara @ Apr 15 2020 5:39PM
--- NOTE | 2020-04-15 18:44 | PCM.HP.2 ---
<RashidTrevor - Last Filed: 04/15/20 20:24> H&P History of Present Illness - General Date of Service: 04/15/20 Admit Problem/Dx: Admission Diagnosis/Problem Admission Diagnosis/Problem Pneumonia - History of Present Illness Initial Comments - Free Text/Narative: 49 year-old female admitted for acute on chronic hypoxic respiratory failure, with a known history of COVID-19 infection requiring 2 L of oxygen at rest. Patient has a past medical history to include CAD with 2 stents on Plavix, heart failure, sleep apnea, fibromyalgia, sarcoidosis, diabetes type 2. Patient was positive for COVID-19 on March 23, 2020. Patient states that she was on the bathroom this afternoon when she passed out having a bowel movement. Patient states that she did hit her head. Patient also states that she had her left shoulder and possibly her head. Patient noted to be hypoxic during ED admiss ion, per documentation 88% O2 saturation on 4 L which is increased to 6 L. Patient was discharged home from the medical floor on April 08 for acute hypoxic respiratory failure secondary to COVID-19 infection. Since discharge patient has been using roughly 2 L of oxygen at home which increases to 3 L with ambulation. Patient was treated with remdesivir, dexamethasone, IV fluids, IV antibiotics. Patient required roughly 10 L of oxygen for a large period of her prior admission. Patient states that she has had a bout of orthostatic hypotension previously which she believes was due to very high dosages of blood pressure medications. On admission white blood cell count 3.63, ABG pH 7.4, troponin negative X1, BNP 94. CTA negative for pulmonary embolism, chest CT impression multiple inter stitial groundglass and airspace opacities, pleural effusions, enlarged mediastinal and hilar lymph nodes. Shoulder x-ray impression, no displacement fractures or dislocations. Head CT negative, no acute intracranial abnormalities. Cervical spine CT shows no evidence of displaced fractures. - Related Data Allergies/Adverse Reactions: Allergies Allergy/AdvReac Type Severity Reaction Status Date / Time No Known Allergies Allergy Verified 04/15/20 22:48 Home Medications: Home Meds Aspirin 81 mg PO DAILY tab.chew 09/08/18 [Rx] Insulin Aspart [NovoLOG] See Protocol SUBCUT TIDAC #1 box 09/08/18 [Rx] Pen Needle, Diabetic [Pen Needle] 1 each QID #1 box 09/08/18 [Rx] atorvaSTATin [Lipitor] 80 mg PO BEDTIME #60 tablet 09/08/18 [Rx] Insulin Degludec [Tresiba] 56 unit SQ BEDTIME 03/12/20 [History] Clopidogrel [Plavix] 75 mg PO DAILY 03/13/20 [History] Fluticasone Propionate [Flovent HFA 110 MCG] 2 inh IH BID 03/13/20 [History] Nitroglycerin 0.4 mg SL .EVERY 5 MINUTES PRN 03/13/20 [History] Potassium Chloride [Klor-Con M20] 20 meq PO BID 03/13/20 [History] Albuterol/Ipratropium [Combivent Respimat] 1 puff INH Q4H PRN inhaler 03/17/20 [Rx] Benzonatate [Tessalon Perle] 200 mg PO TID PRN #30 capsule 03/17/20 [Rx] Pantoprazole Sodium [Protonix] 20 mg PO DAILY #30 tablet. 03/17/20 [Rx] Acetaminophen [Tylenol] 650 mg PO Q4H PRN tablet 04/08/20 [Rx] Aloe Vera/Sodium Chloride [[place] Saline Nasal Gel] 1 applic EZE Q2H PRN #1 tube 04/08/20 [Rx] Furosemide 40 mg PO DAILY #0 04/08/20 [Rx] Furosemide [Lasix] 40 mg PO DAILY tablet 04/08/20 [Rx] carvediloL [Coreg] 6.25 mg PO BID #60 tablet 04/08/20 [Rx] Furosemide 40 mg PO DAILY PRN 04/16/20 [History] Past Medical History HEENT History: Reports: None Cardiovascular History: Reports: CAD, Heart Failure, High Cholesterol, Hypertension, Stents Other Cardiovascular History: two stents placed to mid and proximal LAD on 02/29/2020 at [facility] Respiratory History: Reports: Asthma, Sleep Apnea Gastrointestinal History: Reports: None Genitourinary History: Reports: None 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: Musculoskeletal History: Reports: Fibromyalgia Neurological History: Reports: CVA, Other (See Below) Psychiatric History: Reports: Depression Endocrine/Metabolic History: Reports: Diabetes, Type II, Obesity/BMI 30+ Hematologic History: Reports: None Immunologic History: Reports: None Oncologic (Cancer) History: Reports: None Dermatologic History: Reports: None - Infectious Disease History Infectious Disease History: Reports: None - Past Surgical History Head Surgeries/Procedures: Reports: None HEENT Surgical History: Reports: None Cardiovascular Surgical History: Reports: None Respiratory Surgical History: Reports: Lung Biopsies GI Surgical History: Reports: None Female Surgical History: Reports: Hysterectomy Endocrine Surgical History: Reports: None Neurological Surgical History: Reports: None Musculoskeletal Surgical History: Reports: None Oncologic Surgical History: Reports: None Dermatological Surgical History: Reports: None Social & Family History - Family History Family Medical History: No Pertinent Family History Cardiac: Reports: CAD, Heart Failure, Hypertension, [place] Endocrine/Metabolic: Reports: Diabetes, type II - Tobacco Use Tobacco Use Status *Q: Never Tobacco User - Caffeine Use Caffeine Use: Reports: Coffee, Soda Caffeine Use Comment: 1 cup coffee a day - Recreational Drug Use Recreational Drug Use: No - Living Situation & Occupation Living situation: Reports: Occupation: Employed H&P Review of Systems - Review of Systems: Review Of Systems: See Below General: Denies: Fever, Chills Pulmonary: Reports: Shortness of Breath. Denies: Wheezing Cardiovascular: Reports: Dyspnea on Exertion. Denies: Chest Pain, Palpitations Gastrointestinal: Denies: Abdominal Pain, Diarrhea, Nausea Psychiatric: Denies: Confusion, Depression Neurological: Denies: Confusion, Dizziness, Headache Exam - Exam Exam: See Below - Vital Signs Vital Signs: Last Vital Signs Temp 96 F L 04/15/20 13:01 Pulse 86 04/15/20 18:30 Resp 19 04/15/20 13:01 BP 190/99 H 04/15/20 18:30 Pulse Ox 96 04/15/20 18:30 Weight: 136.985 kg - Exam Quality Assessment: Supplemental Oxygen General: Alert, Oriented Lungs: Clear to Auscultation, Normal Respiratory Effort Cardiovascular: Regular Rate, Regular Rhythm GI/Abdominal Exam: Soft, Non-Tender Neuro Extensive - Mental Status: Alert, Oriented x3 - Patient Data Lab Results Last 24 hrs: Laboratory Results - last 24 hr 04/15/20 04/15/20 04/15/20 Range/Units 13:20 13:20 13:20 WBC 3.63 L (4.0-11.0) K/uL RBC 3.69 L (4.30-5.90) M/uL Hgb 9.8 L (12.0-16.0) g/dL Hct 31.8 L (36.0-46.0) % MCV 86.2 (80.0-98.0) fL MCH 26.6 L (27.0-32.0) pg MCHC 30.8 L (31.0-37.0) g/dL RDW Std Deviation 45.4 (28.0-62.0) fl RDW Coeff of Speedy 15 (11.0-15.0) % Plt Count 142 L (150-400) K/uL MPV 10.20 (7.40-12.00) fL Neut % (Auto) 69.7 (48.0-80.0) % Lymph % (Auto) 14.3 L (16.0-40.0) % Davidson % (Auto) 13.5 (0.0-15.0) % Eos % (Auto) 2.5 (0.0-7.0) % Baso % (Auto) 0.0 (0.0-1.5) % Neut # (Auto) 2.5 (1.4-5.7) K/uL Lymph # (Auto) 0.5 L (0.6-2.4) K/uL Davidson # (Auto) 0.5 (0.0-0.8) K/uL Eos # (Auto) 0.1 (0.0-0.7) K/uL Baso # (Auto) 0.0 (0.0-0.1) K/uL Nucleated RBC % 0.0 /100WBC Nucleated RBCs # 0 K/uL INR APTT (18.6-31.3) SEC D-Dimer, Quantitative (0.0-0.50) mg/L FEU ABG pH (7.35-7.45) ABG pCO2 (35-45) mmHG ABG pO2 (75-100) mmHG ABG HCO3 (22-26) mEq/L ABG Total CO2 ABG Base Excess (-2.0-2.0) Lactate 3.1 H* (0.20-2.00) mmol/L Sodium 140 (136-145) mmol/L Potassium 4.0 (3.5-5.1) mmol/L Chloride 104 (98-107) mmol/L Carbon Dioxide 26.2 (21.0-32.0) mmol/L BUN 12 (7.0-18.0) mg/dL Creatinine 0.8 (0.6-1.0) mg/dL Est Cr Clr Drug Dosing TNP Estimated GFR (MDRD) > 60.0 ml/min Glucose 203 H (74-106) mg/dL Calcium 8.2 L (8.5-10.1) mg/dL Phosphorus 4.0 (2.6-4.7) mg/dL Magnesium 1.7 L (1.8-2.4) mg/dL Ferritin (8-252) ng/mL Total Bilirubin 0.5 (0.2-1.0) mg/dL AST 20 (15-37) IU/L ALT 33 (14-63) IU/L Alkaline Phosphatase 97 (46-116) U/L Lactate Dehydrogenase (81-234) U/L Troponin I < 0.050 (0.000-0.056) ng/mL C-Reactive Protein (0.00-0.90) mg/dL B-Natriuretic Peptide (<100) PG/ML Total Protein 6.2 L (6.4-8.2) g/dL Albumin 2.4 L (3.4-5.0) g/dL Globulin 3.8 (2.6-4.0) g/dL Albumin/Globulin Ratio 0.6 L (0.9-1.6) Blood Type Antibody Screen 04/15/20 04/15/20 04/15/20 Range/Units 13:20 13:20 13:20 WBC (4.0-11.0) K/uL RBC (4.30-5.90) M/uL Hgb (12.0-16.0) g/dL Hct (36.0-46.0) % MCV (80.0-98.0) fL MCH (27.0-32.0) pg MCHC (31.0-37.0) g/dL RDW Std Deviation (28.0-62.0) fl RDW Coeff of Speedy (11.0-15.0) % Plt Count (150-400) K/uL MPV (7.40-12.00) fL Neut % (Auto) (48.0-80.0) % Lymph % (Auto) (16.0-40.0) % Davidson % (Auto) (0.0-15.0) % Eos % (Auto) (0.0-7.0) % Baso % (Auto) (0.0-1.5) % Neut # (Auto) (1.4-5.7) K/uL Lymph # (Auto) (0.6-2.4) K/uL Davidson # (Auto) (0.0-0.8) K/uL Eos # (Auto) (0.0-0.7) K/uL Baso # (Auto) (0.0-0.1) K/uL Nucleated RBC % /100WBC Nucleated RBCs # K/uL INR 1.08 APTT 33.0 H (18.6-31.3) SEC D-Dimer, Quantitative (0.0-0.50) mg/L FEU ABG pH (7.35-7.45) ABG pCO2 (35-45) mmHG ABG pO2 (75-100) mmHG ABG HCO3 (22-26) mEq/L ABG Total CO2 ABG Base Excess (-2.0-2.0) Lactate (0.20-2.00) mmol/L Sodium (136-145) mmol/L Potassium (3.5-5.1) mmol/L Chloride (98-107) mmol/L Carbon Dioxide (21.0-32.0) mmol/L BUN (7.0-18.0) mg/dL Creatinine (0.6-1.0) mg/dL Est Cr Clr Drug Dosing Estimated GFR (MDRD) ml/min Glucose (74-106) mg/dL Calcium (8.5-10.1) mg/dL Phosphorus (2.6-4.7) mg/dL Magnesium (1.8-2.4) mg/dL Ferritin (8-252) ng/mL Total Bilirubin (0.2-1.0) mg/dL AST (15-37) IU/L ALT (14-63) IU/L Alkaline Phosphatase (46-116) U/L Lactate Dehydrogenase 390 H (81-234) U/L Troponin I (0.000-0.056) ng/mL C-Reactive Protein 9.60 H (0.00-0.90) mg/dL B-Natriuretic Peptide 94 (<100) PG/ML Total Protein (6.4-8.2) g/dL Albumin (3.4-5.0) g/dL Globulin (2.6-4.0) g/dL Albumin/Globulin Ratio (0.9-1.6) Blood Type Antibody Screen 04/15/20 04/15/20 04/15/20 Range/Units 13:20 13:20 13:48 WBC (4.0-11.0) K/uL RBC (4.30-5.90) M/uL Hgb (12.0-16.0) g/dL Hct (36.0-46.0) % MCV (80.0-98.0) fL MCH (27.0-32.0) pg MCHC (31.0-37.0) g/dL RDW Std Deviation (28.0-62.0) fl RDW Coeff of Speedy (11.0-15.0) % Plt Count (150-400) K/uL MPV (7.40-12.00) fL Neut % (Auto) (48.0-80.0) % Lymph % (Auto) (16.0-40.0) % Davidson % (Auto) (0.0-15.0) % Eos % (Auto) (0.0-7.0) % Baso % (Auto) (0.0-1.5) % Neut # (Auto) (1.4-5.7) K/uL Lymph # (Auto) (0.6-2.4) K/uL Davidson # (Auto) (0.0-0.8) K/uL Eos # (Auto) (0.0-0.7) K/uL Baso # (Auto) (0.0-0.1) K/uL Nucleated RBC % /100WBC Nucleated RBCs # K/uL INR APTT (18.6-31.3) SEC D-Dimer, Quantitative 1.48 H (0.0-0.50) mg/L FEU ABG pH 7.435 (7.35-7.45) ABG pCO2 43 (35-45) mmHG ABG pO2 107 H (75-100) mmHG ABG HCO3 29 H (22-26) mEq/L ABG Total CO2 27.0 ABG Base Excess 4.1 H (-2.0-2.0) Lactate (0.20-2.00) mmol/L Sodium (136-145) mmol/L Potassium (3.5-5.1) mmol/L Chloride (98-107) mmol/L Carbon Dioxide (21.0-32.0) mmol/L BUN (7.0-18.0) mg/dL Creatinine (0.6-1.0) mg/dL Est Cr Clr Drug Dosing Estimated GFR (MDRD) ml/min Glucose (74-106) mg/dL Calcium (8.5-10.1) mg/dL Phosphorus (2.6-4.7) mg/dL Magnesium (1.8-2.4) mg/dL Ferritin 278 H (8-252) ng/mL Total Bilirubin (0.2-1.0) mg/dL AST (15-37) IU/L ALT (14-63) IU/L Alkaline Phosphatase (46-116) U/L Lactate Dehydrogenase (81-234) U/L Troponin I (0.000-0.056) ng/mL C-Reactive Protein (0.00-0.90) mg/dL B-Natriuretic Peptide (<100) PG/ML Total Protein (6.4-8.2) g/dL Albumin (3.4-5.0) g/dL Globulin (2.6-4.0) g/dL Albumin/Globulin Ratio (0.9-1.6) Blood Type Antibody Screen 04/15/20 04/15/20 04/15/20 Range/Units 15:32 15:53 18:12 WBC (4.0-11.0) K/uL RBC (4.30-5.90) M/uL Hgb (12.0-16.0) g/dL Hct (36.0-46.0) % MCV (80.0-98.0) fL MCH (27.0-32.0) pg MCHC (31.0-37.0) g/dL RDW Std Deviation (28.0-62.0) fl RDW Coeff of Speedy (11.0-15.0) % Plt Count (150-400) K/uL MPV (7.40-12.00) fL Neut % (Auto) (48.0-80.0) % Lymph % (Auto) (16.0-40.0) % Davidson % (Auto) (0.0-15.0) % Eos % (Auto) (0.0-7.0) % Baso % (Auto) (0.0-1.5) % Neut # (Auto) (1.4-5.7) K/uL Lymph # (Auto) (0.6-2.4) K/uL Davidson # (Auto) (0.0-0.8) K/uL Eos # (Auto) (0.0-0.7) K/uL Baso # (Auto) (0.0-0.1) K/uL Nucleated RBC % /100WBC Nucleated RBCs # K/uL INR APTT (18.6-31.3) SEC D-Dimer, Quantitative (0.0-0.50) mg/L FEU ABG pH (7.35-7.45) ABG pCO2 (35-45) mmHG ABG pO2 (75-100) mmHG ABG HCO3 (22-26) mEq/L ABG Total CO2 ABG Base Excess (-2.0-2.0) Lactate 1.0 0.9 (0.20-2.00) mmol/L Sodium (136-145) mmol/L Potassium (3.5-5.1) mmol/L Chloride (98-107) mmol/L Carbon Dioxide (21.0-32.0) mmol/L BUN (7.0-18.0) mg/dL Creatinine (0.6-1.0) mg/dL Est Cr Clr Drug Dosing Estimated GFR (MDRD) ml/min Glucose (74-106) mg/dL Calcium (8.5-10.1) mg/dL Phosphorus (2.6-4.7) mg/dL Magnesium (1.8-2.4) mg/dL Ferritin (8-252) ng/mL Total Bilirubin (0.2-1.0) mg/dL AST (15-37) IU/L ALT (14-63) IU/L Alkaline Phosphatase (46-116) U/L Lactate Dehydrogenase (81-234) U/L Troponin I (0.000-0.056) ng/mL C-Reactive Protein (0.00-0.90) mg/dL B-Natriuretic Peptide (<100) PG/ML Total Protein (6.4-8.2) g/dL Albumin (3.4-5.0) g/dL Globulin (2.6-4.0) g/dL Albumin/Globulin Ratio (0.9-1.6) Blood Type O NEGATIVE Antibody Screen NEGATIVE Result Diagrams: 04/15/20 13:20 04/15/20 13:20 Sepsis Event Note - Evaluation Sepsis Screening Result: No Definite Risk - Focused Exam Vital Signs: Vital Signs Temp Pulse Resp BP Pulse Ox 04/15/20 18:30 86 190/99 H 96 04/15/20 18:08 83 192/91 H 96 04/15/20 17:08 98 167/92 H 88 L 04/15/20 16:07 83 161/80 H 98 04/15/20 15:07 80 151/79 H 99 04/15/20 14:22 84 150/78 H 99 04/15/20 13:20 90 131/68 04/15/20 13:01 96 F L 90 19 140/74 96 - Problem List (1) Healthcare-associated pneumonia SNOMED Code(s): 605249282, 295451086 ICD Code: J18.9 - PNEUMONIA, UNSPECIFIED ORGANISM Status: Acute Current Visit: Yes (2) Hypoxia SNOMED Code(s): 695986020 ICD Code: R09.02 - HYPOXEMIA Status: Acute Current Visit: Yes (3) Syncope SNOMED Code(s): 856150177 ICD Code: R55 - SYNCOPE AND COLLAPSE Status: Acute Current Visit: Yes Qualifiers: Syncope type: unspecified Qualified Code(s): R55 - Syncope and collapse (4) Acute coronary syndrome SNOMED Code(s): 658195399 ICD Code: I24.9 - ACUTE ISCHEMIC HEART DISEASE, UNSPECIFIED Status: Acute Current Visit: No (5) Acute respiratory failure with hypoxia SNOMED Code(s): 73154663, 899901159 ICD Code: J96.01 - ACUTE RESPIRATORY FAILURE WITH HYPOXIA Status: Acute Current Visit: Yes (6) COVID-19 SNOMED Code(s): 187448570 ICD Code: U07.1 - COVID-19 Status: Acute Current Visit: No (7) History of CVA (cerebrovascular accident) SNOMED Code(s): 800211037 ICD Code: Z86.73 - PRSNL HX OF TIA (TIA), AND CEREB INFRC W/O RESID DEFICITS Status: Acute Current Visit: No (8) Orthostatic hypotension SNOMED Code(s): 91516498 ICD Code: I95.1 - ORTHOSTATIC HYPOTENSION Status: Acute Current Visit: No (9) DM type 2 (diabetes mellitus, type 2) SNOMED Code(s): 86581171 ICD Code: E11.9 - TYPE 2 DIABETES MELLITUS WITHOUT COMPLICATIONS Status: Chronic Current Visit: Yes Qualifiers: 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: with group home use Diabetes mellitus complication status: with hyperglycemia Qualified Code(s): E11.65 - Type 2 diabetes mellitus with hyperglycemia; Z79.4 - residential (current) use of insulin (10) HLD (hyperlipidemia) SNOMED Code(s): 67365758 ICD Code: E78.5 - HYPERLIPIDEMIA, UNSPECIFIED Status: Chronic Current Visit: No (11) HTN (hypertension) SNOMED Code(s): 06701464 ICD Code: I10 - ESSENTIAL (PRIMARY) HYPERTENSION Status: Chronic Current Visit: Yes (12) Obesity SNOMED Code(s): 307960211, 308961072 ICD Code: E66.9 - OBESITY, UNSPECIFIED Status: Chronic Current Visit: Yes Qualifiers: Serious obesity comorbidity presence: with serious comorbidity (13) Sarcoidosis of lung SNOMED Code(s): 88187309 ICD Code: D86.0 - SARCOIDOSIS OF LUNG Status: Chronic Current Visit: Yes Problem List Initiated/Reviewed/Updated: Yes Orders Last 24hrs: Active Orders 24 hr Category Date Time Status Patient Status [ADT] Routine ADT 04/15/20 18:18 Active Cardiac Monitoring [RC] . DIRECTED Care 04/15/20 13:10 Active EKG Documentation Completion [RC] STAT Care 04/15/20 13:11 Active Nurse Communication: Isolation [RC] ASDIRECTED Care 04/15/20 15:37 Active Pulse Oximetry [RC] ASDIRECTED Care 04/15/20 13:10 Active CULTURE BLOOD [BC] Stat Lab 04/15/20 15:32 Received CULTURE BLOOD [BC] Stat Lab 04/15/20 15:53 Received PROCALCITONIN [REF] Stat Lab 04/15/20 13:20 Received UA W/RAMOS RFLX IF INDICATED [URIN] Stat Lab 04/15/20 13:11 Ordered Sodium Chloride 0.9% [Saline Flush] Med 04/15/20 13:10 Active 10 ml FLUSH ASDIRECTED PRN Sodium Chloride 0.9% [Saline Flush] Med 04/15/20 13:10 Active 2.5 ml FLUSH ASDIRECTED PRN Blood Culture x2 Reflex Set [OM.PC] Stat Ot 04/15/20 13:11 Ordered Isolation [COMM] Stat Ot 04/15/20 15:36 Active Saline Lock Insert [OM.PC] Stat Ot 04/15/20 13:10 Ordered Medication Orders Sodium Chloride (Saline Flush) 10 ml FLUSH ASDIRECTED PRN PRN Reason: Keep Vein Open Sodium Chloride (Saline Flush) 2.5 ml FLUSH ASDIRECTED PRN PRN Reason: Keep Vein Open Assessment/Plan Comment:: Acute on chronic hypoxic respiratory failure secondary to pneumonia, possibly HAP- IV fluids, use with caution due to patient's history of heart failure, IV antibiotics, duo nebs, incentive spirometry, Gram cultures pending, check and replete electrolytes as needed, oxygen support as needed, Lovenox 40 twice daily, SSI <Minna Sales - Last Filed: 04/16/20 21:16> H&P History of Present Illness - General Admit Problem/Dx: Admission Diagnosis/Problem Admission Diagnosis/Problem Pneumonia Exam - Vital Signs Vital Signs: Last Vital Signs Temp 35.9 C L 04/16/20 19:34 Pulse 89 04/16/20 20:26 Resp 16 04/16/20 19:34 BP 102/61 04/16/20 20:26 Pulse Ox 93 L 04/16/20 19:34 Orthostatic Blood Pressure [ 147/83 Standing] Orthostatic Blood Pressure [ 102/61 Sitting] Orthostatic Blood Pressure [ 141/76 Supine] - Patient Data Lab Results Last 24 hrs: Laboratory Results - last 24 hr 04/15/20 04/15/20 04/15/20 Range/Units 13:48 15:32 20:17 WBC (4.0-11.0) K/uL RBC (4.30-5.90) M/uL Hgb (12.0-16.0) g/dL Hct (36.0-46.0) % MCV (80.0-98.0) fL MCH (27.0-32.0) pg MCHC (31.0-37.0) g/dL RDW Std Deviation (28.0-62.0) fl RDW Coeff of Speedy (11.0-15.0) % Plt Count (150-400) K/uL MPV (7.40-12.00) fL Neut % (Auto) (48.0-80.0) % Lymph % (Auto) (16.0-40.0) % Davidson % (Auto) (0.0-15.0) % Eos % (Auto) (0.0-7.0) % Baso % (Auto) (0.0-1.5) % Neut # (Auto) (1.4-5.7) K/uL Lymph # (Auto) (0.6-2.4) K/uL Davidson # (Auto) (0.0-0.8) K/uL Eos # (Auto) (0.0-0.7) K/uL Baso # (Auto) (0.0-0.1) K/uL Nucleated RBC % /100WBC Nucleated RBCs # K/uL ABG pH 7.435 (7.35-7.45) ABG pCO2 43 (35-45) mmHG ABG pO2 107 H (75-100) mmHG ABG HCO3 29 H (22-26) mEq/L ABG Total CO2 27.0 ABG Base Excess 4.1 H (-2.0-2.0) Sodium (136-145) mmol/L Potassium (3.5-5.1) mmol/L Chloride (98-107) mmol/L Carbon Dioxide (21.0-32.0) mmol/L BUN (7.0-18.0) mg/dL Creatinine (0.6-1.0) mg/dL Est Cr Clr Drug Dosing mL/min Estimated GFR (MDRD) ml/min Glucose (74-106) mg/dL POC Glucose 170 H (60-110) mg/dL Calcium (8.5-10.1) mg/dL Phosphorus (2.6-4.7) mg/dL Magnesium (1.8-2.4) mg/dL Total Bilirubin (0.2-1.0) mg/dL AST (15-37) IU/L ALT (14-63) IU/L Alkaline Phosphatase (46-116) U/L Total Protein (6.4-8.2) g/dL Albumin (3.4-5.0) g/dL Globulin (2.6-4.0) g/dL Albumin/Globulin Ratio (0.9-1.6) Urine Color Urine Appearance Urine pH (5.0-8.0) Ur Specific Golden (1.001-1.035) Urine Protein (NEGATIVE) mg/dL Urine Glucose (UA) (NEGATIVE) mg/dL Urine Ketones (NEGATIVE) mg/dL Urine Occult Blood (NEGATIVE) Urine Nitrite (NEGATIVE) Urine Bilirubin (NEGATIVE) Urine Urobilinogen (<2.0) EU/dL Ur Leukocyte Esterase (NEGATIVE) Urine RBC (0-2/HPF) Urine WBC (0-5/HPF) Ur Epithelial Cells (NONE-FEW) Urine Bacteria (NEGATIVE) Urine Mucus (NONE-MOD) Blood Type O NEGATIVE Antibody Screen NEGATIVE Crossmatch See Detail 04/15/20 04/16/20 04/16/20 Range/Units 22:25 05:20 05:20 WBC 3.42 L (4.0-11.0) K/uL RBC 3.18 L (4.30-5.90) M/uL Hgb 8.3 L (12.0-16.0) g/dL Hct 27.4 L (36.0-46.0) % MCV 86.2 (80.0-98.0) fL MCH 26.1 L (27.0-32.0) pg MCHC 30.3 L (31.0-37.0) g/dL RDW Std Deviation 46.5 (28.0-62.0) fl RDW Coeff of Speedy 15 (11.0-15.0) % Plt Count 141 L (150-400) K/uL MPV 9.80 (7.40-12.00) fL Neut % (Auto) 63.4 (48.0-80.0) % Lymph % (Auto) 16.1 (16.0-40.0) % Davidson % (Auto) 16.1 H (0.0-15.0) % Eos % (Auto) 4.1 (0.0-7.0) % Baso % (Auto) 0.3 (0.0-1.5) % Neut # (Auto) 2.2 (1.4-5.7) K/uL Lymph # (Auto) 0.6 (0.6-2.4) K/uL Davidson # (Auto) 0.6 (0.0-0.8) K/uL Eos # (Auto) 0.1 (0.0-0.7) K/uL Baso # (Auto) 0.0 (0.0-0.1) K/uL Nucleated RBC % 0.0 /100WBC Nucleated RBCs # 0 K/uL ABG pH (7.35-7.45) ABG pCO2 (35-45) mmHG ABG pO2 (75-100) mmHG ABG HCO3 (22-26) mEq/L ABG Total CO2 ABG Base Excess (-2.0-2.0) Sodium 139 (136-145) mmol/L Potassium 3.8 (3.5-5.1) mmol/L Chloride 105 (98-107) mmol/L Carbon Dioxide 27.4 (21.0-32.0) mmol/L BUN 13 (7.0-18.0) mg/dL Creatinine 0.7 (0.6-1.0) mg/dL Est Cr Clr Drug Dosing 100.22 mL/min Estimated GFR (MDRD) > 60.0 ml/min Glucose 208 H (74-106) mg/dL POC Glucose (60-110) mg/dL Calcium 8.1 L (8.5-10.1) mg/dL Phosphorus 3.6 (2.6-4.7) mg/dL Magnesium 1.8 (1.8-2.4) mg/dL Total Bilirubin 0.5 (0.2-1.0) mg/dL AST 11 L (15-37) IU/L ALT 27 (14-63) IU/L Alkaline Phosphatase 75 (46-116) U/L Total Protein 6.1 L (6.4-8.2) g/dL Albumin 2.0 L (3.4-5.0) g/dL Globulin 4.1 H (2.6-4.0) g/dL Albumin/Globulin Ratio 0.5 L (0.9-1.6) Urine Color YELLOW Urine Appearance CLEAR Urine pH 5.0 (5.0-8.0) Ur Specific Golden 1.025 (1.001-1.035) Urine Protein TRACE H (NEGATIVE) mg/dL Urine Glucose (UA) NEGATIVE (NEGATIVE) mg/dL Urine Ketones NEGATIVE (NEGATIVE) mg/dL Urine Occult Blood NEGATIVE (NEGATIVE) Urine Nitrite NEGATIVE (NEGATIVE) Urine Bilirubin NEGATIVE (NEGATIVE) Urine Urobilinogen 1.0 (<2.0) EU/dL Ur Leukocyte Esterase NEGATIVE (NEGATIVE) Urine RBC NONE SEEN (0-2/HPF) Urine WBC 0-1 (0-5/HPF) Ur Epithelial Cells OCCASIONAL (NONE-FEW) Urine Bacteria 2+ H (NEGATIVE) Urine Mucus LIGHT (NONE-MOD) Blood Type Antibody Screen Crossmatch 04/16/20 04/16/20 04/16/20 Range/Units 06:13 12:13 17:31 WBC (4.0-11.0) K/uL RBC (4.30-5.90) M/uL Hgb (12.0-16.0) g/dL Hct (36.0-46.0) % MCV (80.0-98.0) fL MCH (27.0-32.0) pg MCHC (31.0-37.0) g/dL RDW Std Deviation (28.0-62.0) fl RDW Coeff of Speedy (11.0-15.0) % Plt Count (150-400) K/uL MPV (7.40-12.00) fL Neut % (Auto) (48.0-80.0) % Lymph % (Auto) (16.0-40.0) % Davidson % (Auto) (0.0-15.0) % Eos % (Auto) (0.0-7.0) % Baso % (Auto) (0.0-1.5) % Neut # (Auto) (1.4-5.7) K/uL Lymph # (Auto) (0.6-2.4) K/uL Davidson # (Auto) (0.0-0.8) K/uL Eos # (Auto) (0.0-0.7) K/uL Baso # (Auto) (0.0-0.1) K/uL Nucleated RBC % /100WBC Nucleated RBCs # K/uL ABG pH (7.35-7.45) ABG pCO2 (35-45) mmHG ABG pO2 (75-100) mmHG ABG HCO3 (22-26) mEq/L ABG Total CO2 ABG Base Excess (-2.0-2.0) Sodium (136-145) mmol/L Potassium (3.5-5.1) mmol/L Chloride (98-107) mmol/L Carbon Dioxide (21.0-32.0) mmol/L BUN (7.0-18.0) mg/dL Creatinine (0.6-1.0) mg/dL Est Cr Clr Drug Dosing mL/min Estimated GFR (MDRD) ml/min Glucose (74-106) mg/dL POC Glucose 198 H 223 H 174 H (60-110) mg/dL Calcium (8.5-10.1) mg/dL Phosphorus (2.6-4.7) mg/dL Magnesium (1.8-2.4) mg/dL Total Bilirubin (0.2-1.0) mg/dL AST (15-37) IU/L ALT (14-63) IU/L Alkaline Phosphatase (46-116) U/L Total Protein (6.4-8.2) g/dL Albumin (3.4-5.0) g/dL Globulin (2.6-4.0) g/dL Albumin/Globulin Ratio (0.9-1.6) Urine Color Urine Appearance Urine pH (5.0-8.0) Ur Specific Golden (1.001-1.035) Urine Protein (NEGATIVE) mg/dL Urine Glucose (UA) (NEGATIVE) mg/dL Urine Ketones (NEGATIVE) mg/dL Urine Occult Blood (NEGATIVE) Urine Nitrite (NEGATIVE) Urine Bilirubin (NEGATIVE) Urine Urobilinogen (<2.0) EU/dL Ur Leukocyte Esterase (NEGATIVE) Urine RBC (0-2/HPF) Urine WBC (0-5/HPF) Ur Epithelial Cells (NONE-FEW) Urine Bacteria (NEGATIVE) Urine Mucus (NONE-MOD) Blood Type Antibody Screen Crossmatch 04/16/20 Range/Units 20:40 WBC (4.0-11.0) K/uL RBC (4.30-5.90) M/uL Hgb (12.0-16.0) g/dL Hct (36.0-46.0) % MCV (80.0-98.0) fL MCH (27.0-32.0) pg MCHC (31.0-37.0) g/dL RDW Std Deviation (28.0-62.0) fl RDW Coeff of Speedy (11.0-15.0) % Plt Count (150-400) K/uL MPV (7.40-12.00) fL Neut % (Auto) (48.0-80.0) % Lymph % (Auto) (16.0-40.0) % Davidson % (Auto) (0.0-15.0) % Eos % (Auto) (0.0-7.0) % Baso % (Auto) (0.0-1.5) % Neut # (Auto) (1.4-5.7) K/uL Lymph # (Auto) (0.6-2.4) K/uL Davidson # (Auto) (0.0-0.8) K/uL Eos # (Auto) (0.0-0.7) K/uL Baso # (Auto) (0.0-0.1) K/uL Nucleated RBC % /100WBC Nucleated RBCs # K/uL ABG pH (7.35-7.45) ABG pCO2 (35-45) mmHG ABG pO2 (75-100) mmHG ABG HCO3 (22-26) mEq/L ABG Total CO2 ABG Base Excess (-2.0-2.0) Sodium (136-145) mmol/L Potassium (3.5-5.1) mmol/L Chloride (98-107) mmol/L Carbon Dioxide (21.0-32.0) mmol/L BUN (7.0-18.0) mg/dL Creatinine (0.6-1.0) mg/dL Est Cr Clr Drug Dosing mL/min Estimated GFR (MDRD) ml/min Glucose (74-106) mg/dL POC Glucose 149 H (60-110) mg/dL Calcium (8.5-10.1) mg/dL Phosphorus (2.6-4.7) mg/dL Magnesium (1.8-2.4) mg/dL Total Bilirubin (0.2-1.0) mg/dL AST (15-37) IU/L ALT (14-63) IU/L Alkaline Phosphatase (46-116) U/L Total Protein (6.4-8.2) g/dL Albumin (3.4-5.0) g/dL Globulin (2.6-4.0) g/dL Albumin/Globulin Ratio (0.9-1.6) Urine Color Urine Appearance Urine pH (5.0-8.0) Ur Specific Golden (1.001-1.035) Urine Protein (NEGATIVE) mg/dL Urine Glucose (UA) (NEGATIVE) mg/dL Urine Ketones (NEGATIVE) mg/dL Urine Occult Blood (NEGATIVE) Urine Nitrite (NEGATIVE) Urine Bilirubin (NEGATIVE) Urine Urobilinogen (<2.0) EU/dL Ur Leukocyte Esterase (NEGATIVE) Urine RBC (0-2/HPF) Urine WBC (0-5/HPF) Ur Epithelial Cells (NONE-FEW) Urine Bacteria (NEGATIVE) Urine Mucus (NONE-MOD) Blood Type Antibody Screen Crossmatch Result Diagrams: 04/16/20 05:20 04/16/20 05:20 Ramos Results Last 24 hrs: Microbiology 04/15/20 15:53 Aerobic Blood Culture - Preliminary Blood - Venous - Lab Draw NO GROWTH AFTER 1 DAY Anaerobic Blood Culture - Preliminary NO GROWTH AFTER 1 DAY 04/15/20 15:32 Aerobic Blood Culture - Preliminary Blood - Venous NO GROWTH AFTER 1 DAY Anaerobic Blood Culture - Preliminary NO GROWTH AFTER 1 DAY 04/16/20 12:35 Stool Occult Blood (RAMOS) - Final Stool / Feces Sepsis Event Note - Focused Exam Vital Signs: Vital Signs Temp Temp Pulse Pulse Resp BP BP 04/16/20 20:26 89 102/61 04/16/20 19:34 35.9 C L 84 16 123/72 04/16/20 19:00 36.8 C 82 20 04/16/20 16:19 36.7 C 77 18 04/16/20 16:04 36.8 C 80 18 04/16/20 16:00 36.8 C 86 20 123/68 04/16/20 12:00 36.2 C 86 18 149/84 H 04/16/20 09:42 82 123/68 BP Pulse Ox 04/16/20 20:26 04/16/20 19:34 93 L 04/16/20 19:00 125/68 93 L 04/16/20 16:19 123/74 94 L 04/16/20 16:04 116/67 95 04/16/20 16:00 93 L 04/16/20 12:00 93 L 04/16/20 09:42 Orders Last 24hrs: Active Orders 24 hr Category Date Time Status Patient Status [ADT] Routine ADT 04/16/20 11:42 Active Influenza Vaccine Charge [RC] .DISCHARGE Care 04/15/20 22:32 Active Orthostatic Vital Signs [RC] ASDIRECTED Care 04/16/20 17:31 Active Telemetry Monitoring [Cardiac Monitoring] [RC] Q8H Care 04/16/20 09:40 Active Verify Patient Consent Obtain [RC] ASDIRECTED Care 04/16/20 11:39 Active CBC WITH AUTO DIFF [HEME] AM Lab 04/17/20 05:11 Ordered CMP [COMPREHENSIVE METABOLIC PN,CMP] [CHEM] AM Lab 04/17/20 05:11 Ordered CULTURE URINE [RM] Routine Lab 04/16/20 11:38 Ordered HEMOGLOBIN/HEMATOCRIT,HH [HEME] Routine Lab 04/16/20 21:08 Received VANCOMYCIN TROUGH [CHEM] Timed Lab 04/17/20 06:45 Ordered Aspirin [Halfprin] Med 04/16/20 09:00 Active 81 mg PO DAILY Cefepime [Maxipime in D5W 2 GM/50 ML] 2 gm Med 04/15/20 23:30 Active Premix Bag 1 bag IV Q8H Clopidogrel [Plavix] Med 04/16/20 09:00 Active 75 mg PO DAILY Doxycycline [Vibramycin] Med 04/16/20 11:45 Active 100 mg PO BID Enoxaparin [Lovenox] Med 04/15/20 21:00 Active 40 mg SUBCUT BID Insulin Aspart [NovoLOG] Med 04/16/20 11:30 Active 20 unit SUBCUT TIDAC Insulin Aspart [NovoLOG] Med 04/16/20 07:30 Active See Protocol SUBCUT TIDAC Insulin Glarg,Human.Rec.Analog [LantUS Solostar] Med 04/16/20 21:00 Active 50 units SUBCUT BEDTIME Ondansetron [Zofran] Med 04/16/20 18:46 Active 4 mg IVPUSH Q8H PRN Sertraline [Zoloft] Med 04/16/20 09:00 Active 200 mg PO DAILY Vancomycin/Water for INJ (PEG) [Vancomycin 2 GM/400 ML Med 04/16/20 19:15 Active Premix] 2 gm Premix Bag 1 bag IV Q12H carvediloL [Coreg] Med 04/15/20 21:00 Active 6.25 mg PO BID lisinopriL [Prinivil] Med 04/16/20 09:00 Active 5 mg PO DAILY Transfuse Red Blood Cells [COMM] Routine Oth 04/16/20 11:38 Ordered Medication Orders Acetaminophen (Tylenol) 650 mg PO Q4H PRN PRN Reason: Pain (Mild 1-3)/fever Last Admin: 04/16/20 19:02 Dose: 650 mg Documented by: Admin: 04/16/20 00:02 Dose: 650 mg Documented by: KASEY Albuterol/Ipratropium (Duoneb 3.0-0.5 Mg/3 Ml) 3 ml NEB Q4HRRT PRN PRN Reason: Shortness Of Breath/wheezing Aspirin (Halfprin) 81 mg PO DAILY [facility] Last Admin: 04/16/20 09:42 Dose: 81 mg Documented by: ADARSH Carvedilol (Coreg) 6.25 mg PO BID [facility] Last Admin: 04/16/20 20:26 Dose: 6.25 mg Documented by: Admin: 04/16/20 09:42 Dose: 6.25 mg Documented by: Admin: 04/15/20 21:58 Dose: 6.25 mg Documented by: KASEY Clopidogrel Bisulfate (Plavix) 75 mg PO DAILY [facility] Last Admin: 04/16/20 09:42 Dose: 75 mg Documented by: ADARSH Dextrose/Water (Dextrose 50% In Water) 50 ml IV ASDIRECTED PRN PRN Reason: Hypoglycemia Docusate Sodium (Colace) 100 mg PO BID PRN PRN Reason: Constipation Doxycycline Hyclate (Vibramycin) 100 mg PO BID [facility] Last Admin: 04/16/20 20:25 Dose: 100 mg Documented by: Admin: 04/16/20 13:18 Dose: 100 mg Documented by: ADARSH Enoxaparin Sodium (Lovenox) 40 mg SUBCUT BID [facility] Last Admin: 04/16/20 20:27 Dose: 40 mg Documented by: Admin: 04/16/20 09:43 Dose: 40 mg Documented by: Admin: 04/15/20 21:59 Dose: 40 mg Documented by: KASEY Glucagon (Glucagen) 1 mg IM ASDIRECTED PRN PRN Reason: Hypoglycemia Cefepime HCl 2 gm/ Premix 50 mls @ 100 mls/hr IV Q8H [facility] Last Admin: 04/16/20 15:16 Dose: 100 mls/hr Documented by: Infusion: 04/16/20 10:08 Dose: 100 mls/hr Documented by: Admin: 04/16/20 09:38 Dose: 100 mls/hr Documented by: Infusion: 04/16/20 00:31 Dose: 100 mls/hr Documented by: Admin: 04/16/20 00:01 Dose: 100 mls/hr Documented by: KASEY Vancomycin HCl 2 gm/ Premix 400 mls @ 200 mls/hr IV Q12H [facility] Last Admin: 04/16/20 19:33 Dose: 200 mls/hr Documented by: NUBIA Insulin Aspart (Novolog) 0 unit SUBCUT TIDAC [facility]; Protocol Last Admin: 04/16/20 18:15 Dose: 1 unit Documented by: Admin: 04/16/20 13:19 Dose: 2 unit Documented by: Admin: 04/16/20 08:19 Dose: 1 unit Documented by: KASEY Insulin Aspart (Novolog) 20 unit SUBCUT TIDAC [facility] Last Admin: 04/16/20 18:16 Dose: 20 units Documented by: Admin: 04/16/20 13:18 Dose: 20 units Documented by: Admin: 04/16/20 09:54 Dose: 20 units Documented by: ADARSH Insulin Glargine (Lantus Solostar) 50 units SUBCUT BEDTIME [facility] Last Admin: 04/16/20 20:40 Dose: 50 units Documented by: NUBIA Lisinopril (Prinivil) 5 mg PO DAILY [facility] Last Admin: 04/16/20 09:42 Dose: 5 mg Documented by: ADARSH Ondansetron HCl (Zofran) 4 mg IVPUSH Q8H PRN PRN Reason: Nausea/Vomiting Last Admin: 04/16/20 19:02 Dose: 4 mg Documented by: ADARSH Sertraline HCl (Zoloft) 200 mg PO DAILY [facility] Last Admin: 04/16/20 09:42 Dose: 200 mg Documented by: ADARSH Sodium Chloride (Saline Flush) 10 ml FLUSH ASDIRECTED PRN PRN Reason: Keep Vein Open Sodium Chloride (Saline Flush) 2.5 ml FLUSH ASDIRECTED PRN PRN Reason: Keep Vein Open Vancomycin HCl (Pharmacy To Dose - Vancomycin) 1 dose .XX ASDIRECTED DUNIA Assessment/Plan Comment:: I performed a history and physical exam of the patient and discussed management with resident. I have reviewed the residents note and agree with documented findings and plan unless otherwise specified in my note.
[2020-04-15] MEDS ORDERED: Albuterol/Ipratropium 3.0-0.5 MG/3 ML Neb Soln NEB PRN (18:45)
[2020-04-15] MEDS ORDERED: Docusate Sodium 100 MG Cap PO PRN (18:45)
[2020-04-15] MEDS ORDERED: Cefepime 2 GM in Premix Bag 1 BAG IV SCH (19:00)
[2020-04-15] MEDS ORDERED: Glucagon,Human Recombinant 1 MG Vial IM PRN (19:17)
[2020-04-15] MEDS ORDERED: 50% Dextrose in Water 50 ML Syringe IV PRN (19:17)
[2020-04-15] MEDS: Carvedilol 6.25 MG Tab PO SCH (21:58)
[2020-04-15] MEDS: Enoxaparin 40 MG/0.4 ML Syringe SUBCUT SCH (21:59)
[2020-04-16] MEDS: Cefepime 2 GM in Premix Bag 1 BAG IV SCH ×4 (00:01→23:04)
[2020-04-16] MEDS: Acetaminophen 325 MG Tab PO PRN ×2 (00:02→19:02)
[2020-04-16] MEDS ORDERED: Vancomycin/Water for INJ (PEG) 2 GM in Premix Bag 1 BAG IV SCH (03:30)
[2020-04-16 05:54] LABS: BLOOD UREA NITROGEN,BUN 13 mg/dL (7.0-18.0); CARBON DIOXIDE,CO2 27.4 mmol/L (21.0-32.0); CHLORIDE,CL 105 mmol/L (98-107); GLUCOSE RANDOM 208 mg/dL (74-106); POTASSIUM,K 3.8 mmol/L (3.5-5.1); SODIUM,NA 139 mmol/L (136-145)
[2020-04-16] MEDS: Insulin Aspart 100 Units/ML 3 ML Pen SUBCUT SCH ×6 (08:19→18:16)
[2020-04-16] MEDS ORDERED: Sertraline 100 MG Tab PO SCH (09:00)
[2020-04-16] MEDS ORDERED: FLU Vacc QS2020-21 36MOS UP/PF 60 MCG/0.5 ML Syringe IM ONE (09:00)
[2020-04-16] MEDS ORDERED: Lisinopril 5 MG Tab PO SCH (09:00)
[2020-04-16] MEDS: Aspirin 81 MG Tab.EC PO SCH (09:42)
[2020-04-16] MEDS: Clopidogrel 75 MG Tab PO SCH (09:42)
[2020-04-16] MEDS: Carvedilol 6.25 MG Tab PO SCH ×2 (09:42→20:26)
[2020-04-16] MEDS: Enoxaparin 40 MG/0.4 ML Syringe SUBCUT SCH ×2 (09:43→20:27)
[2020-04-16] MEDS: Doxycycline 100 MG Cap PO SCH ×2 (13:18→20:25)
--- NOTE | 2020-04-16 15:02 | PCM.PN ---
<Trevor Crawford - Last Filed: 04/16/20 17:38> - General Info Date of Service: 04/16/20 Subjective Update: Patient states shortness of breath with ambulation. Denies fever, chills, nausea, vomiting, abdominal pain, diarrhea. - Review of Systems General: Reports: Weakness, Fatigue. Denies: Fever, Chills Pulmonary: Reports: Shortness of Breath. Denies: Pleuritic Chest Pain, Cough Cardiovascular: Reports: Dyspnea on Exertion. Denies: Chest Pain Gastrointestinal: Denies: Abdominal Pain, Nausea, Vomiting Neurological: Denies: Confusion, Dizziness - Patient Data Vitals - Most Recent: Last Vital Signs Temp 98.2 F 04/16/20 08:00 Pulse 82 04/16/20 09:42 Resp 18 04/16/20 08:00 BP 123/68 04/16/20 09:42 Pulse Ox 95 04/16/20 08:00 Weight - Most Recent: 137.8 kg I&O - Last 24 Hours: Intake & Output 04/15/20 04/16/20 04/16/20 22:59 06:59 14:59 Intake Total 360 Output Total 600 Balance -240 Lab Results Last 24 Hours: Laboratory Results - last 24 hr 04/15/20 04/15/20 04/15/20 Range/Units 13:20 13:20 13:20 WBC (4.0-11.0) K/uL RBC (4.30-5.90) M/uL Hgb (12.0-16.0) g/dL Hct (36.0-46.0) % MCV (80.0-98.0) fL MCH (27.0-32.0) pg MCHC (31.0-37.0) g/dL RDW Std Deviation (28.0-62.0) fl RDW Coeff of Speedy (11.0-15.0) % Plt Count (150-400) K/uL MPV (7.40-12.00) fL Neut % (Auto) (48.0-80.0) % Lymph % (Auto) (16.0-40.0) % [place] % (Auto) (0.0-15.0) % Eos % (Auto) (0.0-7.0) % Baso % (Auto) (0.0-1.5) % Neut # (Auto) (1.4-5.7) K/uL Lymph # (Auto) (0.6-2.4) K/uL [place] # (Auto) (0.0-0.8) K/uL Eos # (Auto) (0.0-0.7) K/uL Baso # (Auto) (0.0-0.1) K/uL Nucleated RBC % /100WBC Nucleated RBCs # K/uL D-Dimer, Quantitative 1.48 H (0.0-0.50) mg/L FEU Lactate (0.20-2.00) mmol/L Sodium (136-145) mmol/L Potassium (3.5-5.1) mmol/L Chloride (98-107) mmol/L Carbon Dioxide (21.0-32.0) mmol/L BUN (7.0-18.0) mg/dL Creatinine (0.6-1.0) mg/dL Est Cr Clr Drug Dosing mL/min Estimated GFR (MDRD) ml/min Glucose (74-106) mg/dL POC Glucose (60-110) mg/dL Calcium (8.5-10.1) mg/dL Phosphorus (2.6-4.7) mg/dL Magnesium (1.8-2.4) mg/dL Ferritin 278 H (8-252) ng/mL Total Bilirubin (0.2-1.0) mg/dL AST (15-37) IU/L ALT (14-63) IU/L Alkaline Phosphatase (46-116) U/L Lactate Dehydrogenase 390 H (81-234) U/L C-Reactive Protein 9.60 H (0.00-0.90) mg/dL Total Protein (6.4-8.2) g/dL Albumin (3.4-5.0) g/dL Globulin (2.6-4.0) g/dL Albumin/Globulin Ratio (0.9-1.6) Urine Color Urine Appearance Urine pH (5.0-8.0) Ur Specific [place] (1.001-1.035) Urine Protein (NEGATIVE) mg/dL Urine Glucose (UA) (NEGATIVE) mg/dL Urine Ketones (NEGATIVE) mg/dL Urine Occult Blood (NEGATIVE) Urine Nitrite (NEGATIVE) Urine Bilirubin (NEGATIVE) Urine Urobilinogen (<2.0) EU/dL Ur Leukocyte Esterase (NEGATIVE) Urine RBC (0-2/HPF) Urine WBC (0-5/HPF) Ur Epithelial Cells (NONE-FEW) Urine Bacteria (NEGATIVE) Urine Mucus (NONE-MOD) Blood Type Antibody Screen Crossmatch 04/15/20 04/15/20 04/15/20 Range/Units 15:32 15:53 18:12 WBC (4.0-11.0) K/uL RBC (4.30-5.90) M/uL Hgb (12.0-16.0) g/dL Hct (36.0-46.0) % MCV (80.0-98.0) fL MCH (27.0-32.0) pg MCHC (31.0-37.0) g/dL RDW Std Deviation (28.0-62.0) fl RDW Coeff of Speedy (11.0-15.0) % Plt Count (150-400) K/uL MPV (7.40-12.00) fL Neut % (Auto) (48.0-80.0) % Lymph % (Auto) (16.0-40.0) % [place] % (Auto) (0.0-15.0) % Eos % (Auto) (0.0-7.0) % Baso % (Auto) (0.0-1.5) % Neut # (Auto) (1.4-5.7) K/uL Lymph # (Auto) (0.6-2.4) K/uL [place] # (Auto) (0.0-0.8) K/uL Eos # (Auto) (0.0-0.7) K/uL Baso # (Auto) (0.0-0.1) K/uL Nucleated RBC % /100WBC Nucleated RBCs # K/uL D-Dimer, Quantitative (0.0-0.50) mg/L FEU Lactate 1.0 0.9 (0.20-2.00) mmol/L Sodium (136-145) mmol/L Potassium (3.5-5.1) mmol/L Chloride (98-107) mmol/L Carbon Dioxide (21.0-32.0) mmol/L BUN (7.0-18.0) mg/dL Creatinine (0.6-1.0) mg/dL Est Cr Clr Drug Dosing mL/min Estimated GFR (MDRD) ml/min Glucose (74-106) mg/dL POC Glucose (60-110) mg/dL Calcium (8.5-10.1) mg/dL Phosphorus (2.6-4.7) mg/dL Magnesium (1.8-2.4) mg/dL Ferritin (8-252) ng/mL Total Bilirubin (0.2-1.0) mg/dL AST (15-37) IU/L ALT (14-63) IU/L Alkaline Phosphatase (46-116) U/L Lactate Dehydrogenase (81-234) U/L C-Reactive Protein (0.00-0.90) mg/dL Total Protein (6.4-8.2) g/dL Albumin (3.4-5.0) g/dL Globulin (2.6-4.0) g/dL Albumin/Globulin Ratio (0.9-1.6) Urine Color Urine Appearance Urine pH (5.0-8.0) Ur Specific [place] (1.001-1.035) Urine Protein (NEGATIVE) mg/dL Urine Glucose (UA) (NEGATIVE) mg/dL Urine Ketones (NEGATIVE) mg/dL Urine Occult Blood (NEGATIVE) Urine Nitrite (NEGATIVE) Urine Bilirubin (NEGATIVE) Urine Urobilinogen (<2.0) EU/dL Ur Leukocyte Esterase (NEGATIVE) Urine RBC (0-2/HPF) Urine WBC (0-5/HPF) Ur Epithelial Cells (NONE-FEW) Urine Bacteria (NEGATIVE) Urine Mucus (NONE-MOD) Blood Type O NEGATIVE Antibody Screen NEGATIVE Crossmatch See Detail 04/15/20 04/15/20 04/16/20 Range/Units 20:17 22:25 05:20 WBC 3.42 L (4.0-11.0) K/uL RBC 3.18 L (4.30-5.90) M/uL Hgb 8.3 L (12.0-16.0) g/dL Hct 27.4 L (36.0-46.0) % MCV 86.2 (80.0-98.0) fL MCH 26.1 L (27.0-32.0) pg MCHC 30.3 L (31.0-37.0) g/dL RDW Std Deviation 46.5 (28.0-62.0) fl RDW Coeff of Speedy 15 (11.0-15.0) % Plt Count 141 L (150-400) K/uL MPV 9.80 (7.40-12.00) fL Neut % (Auto) 63.4 (48.0-80.0) % Lymph % (Auto) 16.1 (16.0-40.0) % [place] % (Auto) 16.1 H (0.0-15.0) % Eos % (Auto) 4.1 (0.0-7.0) % Baso % (Auto) 0.3 (0.0-1.5) % Neut # (Auto) 2.2 (1.4-5.7) K/uL Lymph # (Auto) 0.6 (0.6-2.4) K/uL [place] # (Auto) 0.6 (0.0-0.8) K/uL Eos # (Auto) 0.1 (0.0-0.7) K/uL Baso # (Auto) 0.0 (0.0-0.1) K/uL Nucleated RBC % 0.0 /100WBC Nucleated RBCs # 0 K/uL D-Dimer, Quantitative (0.0-0.50) mg/L FEU Lactate (0.20-2.00) mmol/L Sodium (136-145) mmol/L Potassium (3.5-5.1) mmol/L Chloride (98-107) mmol/L Carbon Dioxide (21.0-32.0) mmol/L BUN (7.0-18.0) mg/dL Creatinine (0.6-1.0) mg/dL Est Cr Clr Drug Dosing mL/min Estimated GFR (MDRD) ml/min Glucose (74-106) mg/dL POC Glucose 170 H (60-110) mg/dL Calcium (8.5-10.1) mg/dL Phosphorus (2.6-4.7) mg/dL Magnesium (1.8-2.4) mg/dL Ferritin (8-252) ng/mL Total Bilirubin (0.2-1.0) mg/dL AST (15-37) IU/L ALT (14-63) IU/L Alkaline Phosphatase (46-116) U/L Lactate Dehydrogenase (81-234) U/L C-Reactive Protein (0.00-0.90) mg/dL Total Protein (6.4-8.2) g/dL Albumin (3.4-5.0) g/dL Globulin (2.6-4.0) g/dL Albumin/Globulin Ratio (0.9-1.6) Urine Color YELLOW Urine Appearance CLEAR Urine pH 5.0 (5.0-8.0) Ur Specific [place] 1.025 (1.001-1.035) Urine Protein TRACE H (NEGATIVE) mg/dL Urine Glucose (UA) NEGATIVE (NEGATIVE) mg/dL Urine Ketones NEGATIVE (NEGATIVE) mg/dL Urine Occult Blood NEGATIVE (NEGATIVE) Urine Nitrite NEGATIVE (NEGATIVE) Urine Bilirubin NEGATIVE (NEGATIVE) Urine Urobilinogen 1.0 (<2.0) EU/dL Ur Leukocyte Esterase NEGATIVE (NEGATIVE) Urine RBC NONE SEEN (0-2/HPF) Urine WBC 0-1 (0-5/HPF) Ur Epithelial Cells OCCASIONAL (NONE-FEW) Urine Bacteria 2+ H (NEGATIVE) Urine Mucus LIGHT (NONE-MOD) Blood Type Antibody Screen Crossmatch 04/16/20 04/16/20 04/16/20 Range/Units 05:20 06:13 12:13 WBC (4.0-11.0) K/uL RBC (4.30-5.90) M/uL Hgb (12.0-16.0) g/dL Hct (36.0-46.0) % MCV (80.0-98.0) fL MCH (27.0-32.0) pg MCHC (31.0-37.0) g/dL RDW Std Deviation (28.0-62.0) fl RDW Coeff of Speedy (11.0-15.0) % Plt Count (150-400) K/uL MPV (7.40-12.00) fL Neut % (Auto) (48.0-80.0) % Lymph % (Auto) (16.0-40.0) % [place] % (Auto) (0.0-15.0) % Eos % (Auto) (0.0-7.0) % Baso % (Auto) (0.0-1.5) % Neut # (Auto) (1.4-5.7) K/uL Lymph # (Auto) (0.6-2.4) K/uL [place] # (Auto) (0.0-0.8) K/uL Eos # (Auto) (0.0-0.7) K/uL Baso # (Auto) (0.0-0.1) K/uL Nucleated RBC % /100WBC Nucleated RBCs # K/uL D-Dimer, Quantitative (0.0-0.50) mg/L FEU Lactate (0.20-2.00) mmol/L Sodium 139 (136-145) mmol/L Potassium 3.8 (3.5-5.1) mmol/L Chloride 105 (98-107) mmol/L Carbon Dioxide 27.4 (21.0-32.0) mmol/L BUN 13 (7.0-18.0) mg/dL Creatinine 0.7 (0.6-1.0) mg/dL Est Cr Clr Drug Dosing 100.22 mL/min Estimated GFR (MDRD) > 60.0 ml/min Glucose 208 H (74-106) mg/dL POC Glucose 198 H 223 H (60-110) mg/dL Calcium 8.1 L (8.5-10.1) mg/dL Phosphorus 3.6 (2.6-4.7) mg/dL Magnesium 1.8 (1.8-2.4) mg/dL Ferritin (8-252) ng/mL Total Bilirubin 0.5 (0.2-1.0) mg/dL AST 11 L (15-37) IU/L ALT 27 (14-63) IU/L Alkaline Phosphatase 75 (46-116) U/L Lactate Dehydrogenase (81-234) U/L C-Reactive Protein (0.00-0.90) mg/dL Total Protein 6.1 L (6.4-8.2) g/dL Albumin 2.0 L (3.4-5.0) g/dL Globulin 4.1 H (2.6-4.0) g/dL Albumin/Globulin Ratio 0.5 L (0.9-1.6) Urine Color Urine Appearance Urine pH (5.0-8.0) Ur Specific [place] (1.001-1.035) Urine Protein (NEGATIVE) mg/dL Urine Glucose (UA) (NEGATIVE) mg/dL Urine Ketones (NEGATIVE) mg/dL Urine Occult Blood (NEGATIVE) Urine Nitrite (NEGATIVE) Urine Bilirubin (NEGATIVE) Urine Urobilinogen (<2.0) EU/dL Ur Leukocyte Esterase (NEGATIVE) Urine RBC (0-2/HPF) Urine WBC (0-5/HPF) Ur Epithelial Cells (NONE-FEW) Urine Bacteria (NEGATIVE) Urine Mucus (NONE-MOD) Blood Type Antibody Screen Crossmatch Ramos Results Last 24 Hours: Microbiology 04/16/20 12:35 Stool Occult Blood (RAMOS) - Final Stool / Feces Med Orders - Current: Current Medications Acetaminophen (Tylenol) 650 mg PO Q4H PRN PRN Reason: Pain (Mild 1-3)/fever Last Admin: 04/16/20 00:02 Dose: 650 mg Documented by: Albuterol/Ipratropium (Duoneb 3.0-0.5 Mg/3 Ml) 3 ml NEB Q4HRRT PRN PRN Reason: Shortness Of Breath/wheezing Aspirin (Halfprin) 81 mg PO DAILY [facility] Last Admin: 04/16/20 09:42 Dose: 81 mg Documented by: Carvedilol (Coreg) 6.25 mg PO BID [facility] Last Admin: 04/16/20 09:42 Dose: 6.25 mg Documented by: Clopidogrel Bisulfate (Plavix) 75 mg PO DAILY [facility] Last Admin: 04/16/20 09:42 Dose: 75 mg Documented by: Dextrose/Water (Dextrose 50% In Water) 50 ml IV ASDIRECTED PRN PRN Reason: Hypoglycemia Docusate Sodium (Colace) 100 mg PO BID PRN PRN Reason: Constipation Doxycycline Hyclate (Vibramycin) 100 mg PO BID [facility] Last Admin: 04/16/20 13:18 Dose: 100 mg Documented by: Enoxaparin Sodium (Lovenox) 40 mg SUBCUT BID [facility] Last Admin: 04/16/20 09:43 Dose: 40 mg Documented by: Glucagon (Glucagen) 1 mg IM ASDIRECTED PRN PRN Reason: Hypoglycemia Cefepime HCl 2 gm/ Premix 50 mls @ 100 mls/hr IV Q8H [facility] Last Admin: 04/16/20 09:38 Dose: 100 mls/hr Documented by: Vancomycin HCl 2 gm/ Premix 400 mls @ 200 mls/hr IV Q12H [facility] Insulin Aspart (Novolog) 0 unit SUBCUT TIDAC [facility]; Protocol Last Admin: 04/16/20 13:19 Dose: 2 unit Documented by: Insulin Aspart (Novolog) [facility] Last Admin: 04/16/20 13:18 Dose: 20 units Documented by: Lisinopril (Prinivil) 5 mg PO DAILY [facility] Last Admin: 04/16/20 09:42 Dose: 5 mg Documented by: Sertraline HCl (Zoloft) 200 mg PO DAILY [facility] Last Admin: 04/16/20 09:42 Dose: 200 mg Documented by: Sodium Chloride (Saline Flush) 10 ml FLUSH ASDIRECTED PRN PRN Reason: Keep Vein Open Sodium Chloride (Saline Flush) 2.5 ml FLUSH ASDIRECTED PRN PRN Reason: Keep Vein Open Vancomycin HCl (Pharmacy To Dose - Vancomycin) 1 dose .XX ASDIRECTED [facility] Discontinued Medications Cefepime HCl 2 gm/ Premix 50 mls @ 100 mls/hr IV ONETIME ONE Stop: 04/15/20 15:40 Last Admin: 04/15/20 16:26 Dose: 100 mls/hr Documented by: Vancomycin HCl 2 gm/ Premix 400 mls @ 200 mls/hr IV ONETIME ONE Stop: 04/15/20 17:59 Last Admin: 04/15/20 16:25 Dose: 200 mls/hr Documented by: Cefepime HCl 2 gm/ Premix 50 mls @ 100 mls/hr IV Q8H [facility] Vancomycin HCl 2 gm/ Premix 400 mls @ 200 mls/hr IV Q12H [facility] Last Admin: 04/16/20 07:15 Dose: 200 mls/hr Documented by: Influenza Virus Vaccine (Pharmacy To Dose - Influenza Vaccine) 1 each IM ONETIME ONE Stop: 04/15/20 22:33 Influenza Virus Vaccine (Afluria Quad 2020-21 (3yr Up)) 60 mcg IM .ONCE ONE Stop: 04/16/20 09:01 Iopamidol (Isovue Multipack-370 (76%)) 80 ml IVPUSH ONETIME STA Stop: 04/15/20 16:53 Last Admin: 04/15/20 16:52 Dose: 80 ml Documented by: Vancomycin HCl (Vancomycin) 2,250 mg IV STAT STA Stop: 04/15/20 15:18 Last Admin: 04/15/20 16:26 Dose: Not Given Documented by: - Exam Quality Assessment: Supplemental Oxygen (2.5-3L N/C) General: Alert, Oriented Lungs: Clear to Auscultation, Normal Respiratory Effort Cardiovascular: Regular Rate, Regular Rhythm GI/Abdominal Exam: Normal Bowel Sounds, Soft, Non-Tender Psy/Mental Status: Alert Sepsis Event Note - Evaluation Sepsis Screening Result: No Definite Risk - Focused Exam Vital Signs: Vital Signs Temp Pulse Pulse Resp BP BP Pulse Ox 04/16/20 09:42 82 123/68 04/16/20 08:00 98.2 F 82 18 126/69 95 04/16/20 04:00 97.9 F 82 16 93/54 L 91 L - Problem List & Annotations (1) Healthcare-associated pneumonia SNOMED Code(s): 955208988, 130223066 Code(s): J18.9 - PNEUMONIA, UNSPECIFIED ORGANISM Status: Acute (2) Hypoxia SNOMED Code(s): 411938621 Code(s): R09.02 - HYPOXEMIA Status: Acute (3) Syncope SNOMED Code(s): 350363257 Code(s): R55 - SYNCOPE AND COLLAPSE Status: Acute Qualifiers: Syncope type: unspecified Qualified Code(s): R55 - Syncope and collapse (4) Acute coronary syndrome SNOMED Code(s): 222567976 Code(s): I24.9 - ACUTE ISCHEMIC HEART DISEASE, UNSPECIFIED Status: Acute (5) Acute respiratory failure with hypoxia SNOMED Code(s): 72090854, 374072622 Code(s): J96.01 - ACUTE RESPIRATORY FAILURE WITH HYPOXIA Status: Acute (6) COVID-19 SNOMED Code(s): 190077880 Code(s): U07.1 - COVID-19 Status: Acute (7) History of CVA (cerebrovascular accident) SNOMED Code(s): 498224081 Code(s): Z86.73 - PRSNL HX OF TIA (TIA), AND CEREB INFRC W/O RESID DEFICITS Status: Acute (8) Orthostatic hypotension SNOMED Code(s): 44040016 Code(s): I95.1 - ORTHOSTATIC HYPOTENSION Status: Acute (9) DM type 2 (diabetes mellitus, type 2) SNOMED Code(s): 21738663 Code(s): E11.9 - TYPE 2 DIABETES MELLITUS WITHOUT COMPLICATIONS Status: Chronic Qualifiers: Diabetes mellitus long-term insulin use: with lobsterman use Diabetes mellitus complication status: with hyperglycemia Qualified Code(s): E11.65 - Type 2 diabetes mellitus with hyperglycemia; Z79.4 - group home (current) use of insulin (10) HLD (hyperlipidemia) SNOMED Code(s): 95146939 Code(s): E78.5 - HYPERLIPIDEMIA, UNSPECIFIED Status: Chronic (11) HTN (hypertension) SNOMED Code(s): 15813004 Code(s): I10 - ESSENTIAL (PRIMARY) HYPERTENSION Status: Chronic (12) Obesity SNOMED Code(s): 993834159, 088896209 Code(s): E66.9 - OBESITY, UNSPECIFIED Status: Chronic Qualifiers: Serious obesity comorbidity presence: with serious comorbidity (13) Sarcoidosis of lung SNOMED Code(s): 99215206 Code(s): D86.0 - SARCOIDOSIS OF LUNG Status: Chronic - Problem List Review Problem List Initiated/Reviewed/Updated: Yes - My Orders Last 24 Hours: My Active Orders 04/15/20 Dinner [employer] Diet [DIET] 04/15/20 18:45 Oxygen Therapy [RC] PRN VTE/DVT Education [RC] PER UNIT ROUTINE Vital Signs [RC] Q4H Acetaminophen [TylenoL] 650 mg PO Q4H PRN Albuterol/Ipratropium [DuoNeb 3.0-0.5 MG/3 ML] 3 ml NEB Q4HRRT PRN Docusate Sodium [Colace] 100 mg PO BID PRN Resuscitation Status Routine 04/15/20 18:47 RT Aerosol Therapy [RC] ASDIRECTED 04/15/20 19:00 Pharmacy to Dose - Vancomycin 1 dose .XX ASDIRECTED 04/15/20 19:17 Dextrose 50% in Water 50 ml IV ASDIRECTED PRN Glucagon,Human Recombinant [GlucaGen] 1 mg IM ASDIRECTED PRN 04/15/20 19:18 Accu Check [Blood Glucose Check, Bedside] [RC] WITHMEALSANDBED 04/15/20 21:00 Enoxaparin [Lovenox] 40 mg SUBCUT BID carvediloL [Coreg] 6.25 mg PO BID 04/15/20 23:30 Cefepime [Maxipime in D5W 2 GM/50 ML] 2 gm Premix Bag 1 bag IV Q8H 04/16/20 07:30 Insulin Aspart [NovoLOG] See Protocol SUBCUT TIDAC 04/16/20 09:00 Aspirin [Halfprin] 81 mg PO DAILY Clopidogrel [Plavix] 75 mg PO DAILY Sertraline [Zoloft] 200 mg PO DAILY lisinopriL [Prinivil] 5 mg PO DAILY 04/16/20 09:40 Telemetry Monitoring [Cardiac Monitoring] [RC] . DIRECTED - Plan Plan:: Acute on chronic hypoxic respiratory failure secondary to pneumonia, possibly HAP- IV vancomycin, cefepime, doxycycline po, duo-nebs, incentive spirometry, Gram cultures pending, check and replete electrolytes as needed, oxygen support as needed, Lovenox 40 twice daily, SSI, orthostatic vitals AnemiaHgb 8.3, transfuse 1 unit blood, recheck H&H. Occult stool ordered Diabetesinsulin sliding scale, NovoLog 3 times daily AC, diabetic diet CADPlavix, Coreg twice daily, lisinopril <Minna Sales - Last Filed: 04/20/20 19:03> - Patient Data Vitals - Most Recent: Last Vital Signs Temp 36.6 C 04/19/20 19:00 Pulse 85 04/19/20 19:00 Resp 18 04/19/20 19:00 BP 148/84 H 04/19/20 19:00 Pulse Ox 95 04/19/20 19:00 Orthostatic Blood Pressure [ 131/82 Standing] Orthostatic Blood Pressure [ 114/70 Sitting] Orthostatic Blood Pressure [ 148/84 Supine] Ramos Results Last 24 Hours: Microbiology 04/15/20 15:53 Aerobic Blood Culture - Final Blood - Venous - Lab Draw NO GROWTH AFTER 5 DAYS Anaerobic Blood Culture - Final NO GROWTH AFTER 5 DAYS 04/15/20 15:32 Aerobic Blood Culture - Final Blood - Venous NO GROWTH AFTER 5 DAYS Anaerobic Blood Culture - Final NO GROWTH AFTER 5 DAYS Med Orders - Current: Current Medications Discontinued Medications Acetaminophen (Tylenol) 650 mg PO Q4H PRN PRN Reason: Pain (Mild 1-3)/fever Last Admin: 04/18/20 11:43 Dose: 650 mg Documented by: Albuterol/Ipratropium (Duoneb 3.0-0.5 Mg/3 Ml) 3 ml NEB Q4HRRT PRN PRN Reason: Shortness Of Breath/wheezing Last Admin: 04/19/20 06:32 Dose: 3 ml Documented by: Albuterol/Ipratropium (Combivent Respimat) 0 gm INH Q4H PRN PRN Reason: Dyspnea/wheezing Ascorbic Acid (Vitamin C) 250 mg PO BIDMEALS [facility] Last Admin: 04/19/20 17:10 Dose: 250 mg Documented by: Aspirin (Halfprin) 81 mg PO DAILY [facility] Last Admin: 04/19/20 09:24 Dose: 81 mg Documented by: Atorvastatin Calcium (Lipitor) 80 mg PO BEDTIME [facility] Last Admin: 04/18/20 21:10 Dose: 80 mg Documented by: Carvedilol (Coreg) 6.25 mg PO BID [facility] Last Admin: 04/19/20 09:24 Dose: 6.25 mg Documented by: Clopidogrel Bisulfate (Plavix) 75 mg PO DAILY [facility] Last Admin: 04/19/20 09:24 Dose: 75 mg Documented by: Dextrose/Water (Dextrose 50% In Water) 50 ml IV ASDIRECTED PRN PRN Reason: Hypoglycemia Dextrose/Water (Dextrose 50% In Water) 50 ml IV ASDIRECTED PRN PRN Reason: Hypoglycemia Docusate Sodium (Colace) 100 mg PO BID PRN PRN Reason: Constipation Doxycycline Hyclate (Vibramycin) 100 mg PO BID [facility] Last Admin: 04/19/20 09:24 Dose: 100 mg Documented by: Enoxaparin Sodium (Lovenox) 40 mg SUBCUT BID [facility] Last Admin: 04/19/20 09:25 Dose: 40 mg Documented by: Ferrous Sulfate (Ferrous Sulfate) 325 mg PO BIDMEALS [facility] Ferrous Sulfate (Ferrous Sulfate) 325 mg PO BIDMEALS [facility] Last Admin: 04/19/20 17:10 Dose: 325 mg Documented by: Fluticasone Propionate (Flovent Hfa 110 Mcg) 0 gm INH BID [facility] Last Admin: 04/19/20 08:49 Dose: 2 puff Documented by: Furosemide (Lasix) 40 mg PO DAILY [facility] Last Admin: 04/19/20 09:25 Dose: 40 mg Documented by: Glucagon (Glucagen) 1 mg IM ASDIRECTED PRN PRN Reason: Hypoglycemia Glucagon (Glucagen) 1 mg IM ASDIRECTED PRN PRN Reason: Hypoglycemia Cefepime HCl 2 gm/ Premix 50 mls @ 100 mls/hr IV ONETIME ONE Stop: 04/15/20 15:40 Last Admin: 04/15/20 16:26 Dose: 100 mls/hr Documented by: Vancomycin HCl 2 gm/ Premix 400 mls @ 200 mls/hr IV ONETIME ONE Stop: 04/15/20 17:59 Last Admin: 04/15/20 16:25 Dose: 200 mls/hr Documented by: Cefepime HCl 2 gm/ Premix 50 mls @ 100 mls/hr IV Q8H [facility] Cefepime HCl 2 gm/ Premix 50 mls @ 100 mls/hr IV Q8H [facility] Last Admin: 04/19/20 06:45 Dose: 100 mls/hr Documented by: Vancomycin HCl 2 gm/ Premix 400 mls @ 200 mls/hr IV Q12H [facility] Last Admin: 04/16/20 07:15 Dose: 200 mls/hr Documented by: Vancomycin HCl 2 gm/ Premix 400 mls @ 200 mls/hr IV Q12H [facility] Last Admin: 04/17/20 10:32 Dose: Not Given Documented by: Vancomycin HCl 2 gm/ Premix 400 mls @ 200 mls/hr IV Q12H [facility] Last Admin: 04/19/20 12:00 Dose: Not Given Documented by: Magnesium Sulfate (Magnesium Sulfate In Water Premix) 2 gm in 50 mls @ 50 mls/hr IV ONETIME ONE Stop: 04/18/20 13:12 Last Admin: 04/18/20 12:40 Dose: 50 mls/hr Documented by: Vancomycin HCl 2 gm/ Premix 400 mls @ 200 mls/hr IV Q24H [facility] Cefepime HCl 2 gm/ Sodium (Chloride) 50 mls @ 100 mls/hr IV Q8H [facility] Last Admin: 04/19/20 14:55 Dose: 100 mls/hr Documented by: Influenza Virus Vaccine (Pharmacy To Dose - Influenza Vaccine) 1 each IM ONETIME ONE Stop: 04/15/20 22:33 Influenza Virus Vaccine (Afluria Quad 2020-21 (3yr Up)) 60 mcg IM .ONCE ONE Stop: 04/16/20 09:01 Insulin Aspart (Novolog) 0 unit SUBCUT TIDAC [facility]; Protocol Last Admin: 04/19/20 17:40 Dose: 1 unit Documented by: Insulin Aspart (Novolog) 20 unit SUBCUT TIDAC [facility] Last Admin: 04/19/20 17:41 Dose: 20 units Documented by: Insulin Glargine (Lantus Solostar) 50 units SUBCUT BEDTIME [facility] Last Admin: 04/18/20 21:21 Dose: 50 units Documented by: Iopamidol (Isovue Multipack-370 (76%)) 80 ml IVPUSH ONETIME STA Stop: 04/15/20 16:53 Last Admin: 04/15/20 16:52 Dose: 80 ml Documented by: Lisinopril (Prinivil) 5 mg PO DAILY [facility] Last Admin: 04/16/20 09:42 Dose: 5 mg Documented by: Nitroglycerin (Nitrostat) 0.4 mg SL .EVERY 5 MINUTES PRN PRN Reason: Chest Pain Ondansetron HCl (Zofran) 4 mg IVPUSH Q8H PRN PRN Reason: Nausea/Vomiting Last Admin: 04/19/20 09:17 Dose: 4 mg Documented by: Sertraline HCl (Zoloft) 200 mg PO DAILY [facility] Last Admin: 04/16/20 09:42 Dose: 200 mg Documented by: Sodium Chloride (Saline Flush) 10 ml FLUSH ASDIRECTED PRN PRN Reason: Keep Vein Open Sodium Chloride (Saline Flush) 2.5 ml FLUSH ASDIRECTED PRN PRN Reason: Keep Vein Open Vancomycin HCl (Vancomycin) 2,250 mg IV STAT STA Stop: 04/15/20 15:18 Last Admin: 04/15/20 16:26 Dose: Not Given Documented by: Vancomycin HCl (Pharmacy To Dose - Vancomycin) 1 dose .XX ASDIRECTED [facility] - Plan Plan:: I have seen and evaluated the patient. I have discussed findings and treatment plan with resident. I agree with the assessment and plan in the following note.
[2020-04-16] MEDS ORDERED: 50% Dextrose in Water 50 ML Syringe IV PRN (18:21)
[2020-04-16] MEDS ORDERED: Glucagon,Human Recombinant 1 MG Vial IM PRN (18:21)
[2020-04-16] MEDS: Ondansetron 4 MG/2 ML SDV IVPUSH PRN (19:02)
[2020-04-16] MEDS: Vancomycin/Water for INJ (PEG) 2 GM in Premix Bag 1 BAG IV SCH (19:33)
[2020-04-16] MEDS: Insulin Glargine,Human Rec. Analog 100 Units/ML 3 ML Pen SUBCUT SCH (20:40)
[2020-04-17 07:23] LABS: BLOOD UREA NITROGEN,BUN 12 mg/dL (7.0-18.0); CARBON DIOXIDE,CO2 27.5 mmol/L (21.0-32.0); CHLORIDE,CL 103 mmol/L (98-107); GLUCOSE RANDOM 115 mg/dL (74-106); SODIUM,NA 139 mmol/L (136-145)
[2020-04-17] MEDS: Insulin Aspart 100 Units/ML 3 ML Pen SUBCUT SCH ×6 (07:35→17:54)
[2020-04-17] MEDS: Clopidogrel 75 MG Tab PO SCH (08:08)
[2020-04-17] MEDS: Carvedilol 6.25 MG Tab PO SCH ×2 (08:08→20:27)
[2020-04-17] MEDS: Aspirin 81 MG Tab.EC PO SCH (08:08)
[2020-04-17] MEDS: Doxycycline 100 MG Cap PO SCH ×2 (08:09→20:27)
[2020-04-17] MEDS: Acetaminophen 325 MG Tab PO PRN ×2 (08:09→20:26)
[2020-04-17] MEDS: Enoxaparin 40 MG/0.4 ML Syringe SUBCUT SCH ×2 (08:11→20:35)
[2020-04-17] MEDS: Cefepime 2 GM in Premix Bag 1 BAG IV SCH ×3 (08:12→23:20)
[2020-04-17] MEDS ORDERED: Nitroglycerin 0.4 MG Tab.SL SL PRN (08:20)
[2020-04-17] MEDS: Vancomycin/Water for INJ (PEG) 2 GM in Premix Bag 1 BAG IV SCH ×3 (09:25→20:25)
[2020-04-17] MEDS: Furosemide 40 MG Tab PO SCH (09:25)
--- NOTE | 2020-04-17 12:03 | PCM.PN ---
- General Info Date of Service: 04/17/20 Subjective Update: Patient states shortness of breath, dizziness with ambulation. Denies fever, chills, nausea, vomiting, abdominal pain, chest pain. - Review of Systems General: Denies: Fever, Chills HEENT: Denies: Headaches, Visual Changes Pulmonary: Reports: Shortness of Breath. Denies: Cough Cardiovascular: Reports: Dyspnea on Exertion, Lightheadedness. Denies: Chest Pain Gastrointestinal: Denies: Abdominal Pain, Decreased Appetite, Nausea, Vomiting Neurological: Reports: Dizziness (with ambulation). Denies: Confusion, Headache - Patient Data Vitals - Most Recent: Last Vital Signs Temp 97.8 F 04/17/20 08:00 Pulse 68 04/17/20 08:08 Resp 19 04/17/20 08:00 BP 123/68 04/17/20 08:08 Pulse Ox 94 L 04/17/20 08:00 Orthostatic Blood Pressure [ 115/70 Standing] Orthostatic Blood Pressure [ 134/78 Sitting] Orthostatic Blood Pressure [ 99/71 Supine] Weight - Most Recent: 311 lb 9.6 oz I&O - Last 24 Hours: Intake & Output 04/16/20 04/17/20 04/17/20 22:59 06:59 14:59 Intake Total 350 825 Output Total 450 Balance 350 375 Lab Results Last 24 Hours: Laboratory Results - last 24 hr 04/15/20 04/15/20 04/15/20 Range/Units 13:20 13:48 15:32 WBC (4.0-11.0) K/uL RBC (4.30-5.90) M/uL Hgb (12.0-16.0) g/dL Hct (36.0-46.0) % MCV (80.0-98.0) fL MCH (27.0-32.0) pg MCHC (31.0-37.0) g/dL RDW Std Deviation (28.0-62.0) fl RDW Coeff of Speedy (11.0-15.0) % Plt Count (150-400) K/uL MPV (7.40-12.00) fL Neut % (Auto) (48.0-80.0) % Lymph % (Auto) (16.0-40.0) % Bowman % (Auto) (0.0-15.0) % Eos % (Auto) (0.0-7.0) % Baso % (Auto) (0.0-1.5) % Neut # (Auto) (1.4-5.7) K/uL Lymph # (Auto) (0.6-2.4) K/uL Bowman # (Auto) (0.0-0.8) K/uL Eos # (Auto) (0.0-0.7) K/uL Baso # (Auto) (0.0-0.1) K/uL Nucleated RBC % /100WBC Nucleated RBCs # K/uL ABG pH 7.435 (7.35-7.45) ABG pCO2 43 (35-45) mmHG ABG pO2 107 H (75-100) mmHG ABG HCO3 29 H (22-26) mEq/L ABG Total CO2 27.0 ABG Base Excess 4.1 H (-2.0-2.0) Sodium (136-145) mmol/L Potassium (3.5-5.1) mmol/L Chloride (98-107) mmol/L Carbon Dioxide (21.0-32.0) mmol/L BUN (7.0-18.0) mg/dL Creatinine (0.6-1.0) mg/dL Est Cr Clr Drug Dosing mL/min Estimated GFR (MDRD) ml/min Glucose (74-106) mg/dL POC Glucose (60-110) mg/dL Calcium (8.5-10.1) mg/dL Total Bilirubin (0.2-1.0) mg/dL AST (15-37) IU/L ALT (14-63) IU/L Alkaline Phosphatase (46-116) U/L Total Protein (6.4-8.2) g/dL Albumin (3.4-5.0) g/dL Globulin (2.6-4.0) g/dL Albumin/Globulin Ratio (0.9-1.6) Procalcitonin 0.18 H ng/mL Vancomycin Trough (5.0-10.0) ug/mL Blood Type O NEGATIVE Antibody Screen NEGATIVE Crossmatch See Detail 04/16/20 04/16/20 04/16/20 Range/Units 12:13 17:31 20:40 WBC (4.0-11.0) K/uL RBC (4.30-5.90) M/uL Hgb (12.0-16.0) g/dL Hct (36.0-46.0) % MCV (80.0-98.0) fL MCH (27.0-32.0) pg MCHC (31.0-37.0) g/dL RDW Std Deviation (28.0-62.0) fl RDW Coeff of Speedy (11.0-15.0) % Plt Count (150-400) K/uL MPV (7.40-12.00) fL Neut % (Auto) (48.0-80.0) % Lymph % (Auto) (16.0-40.0) % Bowman % (Auto) (0.0-15.0) % Eos % (Auto) (0.0-7.0) % Baso % (Auto) (0.0-1.5) % Neut # (Auto) (1.4-5.7) K/uL Lymph # (Auto) (0.6-2.4) K/uL Bowman # (Auto) (0.0-0.8) K/uL Eos # (Auto) (0.0-0.7) K/uL Baso # (Auto) (0.0-0.1) K/uL Nucleated RBC % /100WBC Nucleated RBCs # K/uL ABG pH (7.35-7.45) ABG pCO2 (35-45) mmHG ABG pO2 (75-100) mmHG ABG HCO3 (22-26) mEq/L ABG Total CO2 ABG Base Excess (-2.0-2.0) Sodium (136-145) mmol/L Potassium (3.5-5.1) mmol/L Chloride (98-107) mmol/L Carbon Dioxide (21.0-32.0) mmol/L BUN (7.0-18.0) mg/dL Creatinine (0.6-1.0) mg/dL Est Cr Clr Drug Dosing mL/min Estimated GFR (MDRD) ml/min Glucose (74-106) mg/dL POC Glucose 223 H 174 H 149 H (60-110) mg/dL Calcium (8.5-10.1) mg/dL Total Bilirubin (0.2-1.0) mg/dL AST (15-37) IU/L ALT (14-63) IU/L Alkaline Phosphatase (46-116) U/L Total Protein (6.4-8.2) g/dL Albumin (3.4-5.0) g/dL Globulin (2.6-4.0) g/dL Albumin/Globulin Ratio (0.9-1.6) Procalcitonin ng/mL Vancomycin Trough (5.0-10.0) ug/mL Blood Type Antibody Screen Crossmatch 04/16/20 04/17/20 04/17/20 Range/Units 21:08 06:19 06:52 WBC (4.0-11.0) K/uL RBC (4.30-5.90) M/uL Hgb 9.4 L (12.0-16.0) g/dL Hct 30.0 L (36.0-46.0) % MCV (80.0-98.0) fL MCH (27.0-32.0) pg MCHC (31.0-37.0) g/dL RDW Std Deviation (28.0-62.0) fl RDW Coeff of Speedy (11.0-15.0) % Plt Count (150-400) K/uL MPV (7.40-12.00) fL Neut % (Auto) (48.0-80.0) % Lymph % (Auto) (16.0-40.0) % Bowman % (Auto) (0.0-15.0) % Eos % (Auto) (0.0-7.0) % Baso % (Auto) (0.0-1.5) % Neut # (Auto) (1.4-5.7) K/uL Lymph # (Auto) (0.6-2.4) K/uL Bowman # (Auto) (0.0-0.8) K/uL Eos # (Auto) (0.0-0.7) K/uL Baso # (Auto) (0.0-0.1) K/uL Nucleated RBC % /100WBC Nucleated RBCs # K/uL ABG pH (7.35-7.45) ABG pCO2 (35-45) mmHG ABG pO2 (75-100) mmHG ABG HCO3 (22-26) mEq/L ABG Total CO2 ABG Base Excess (-2.0-2.0) Sodium (136-145) mmol/L Potassium (3.5-5.1) mmol/L Chloride (98-107) mmol/L Carbon Dioxide (21.0-32.0) mmol/L BUN (7.0-18.0) mg/dL Creatinine (0.6-1.0) mg/dL Est Cr Clr Drug Dosing mL/min Estimated GFR (MDRD) ml/min Glucose (74-106) mg/dL POC Glucose 100 (60-110) mg/dL Calcium (8.5-10.1) mg/dL Total Bilirubin (0.2-1.0) mg/dL AST (15-37) IU/L ALT (14-63) IU/L Alkaline Phosphatase (46-116) U/L Total Protein (6.4-8.2) g/dL Albumin (3.4-5.0) g/dL Globulin (2.6-4.0) g/dL Albumin/Globulin Ratio (0.9-1.6) Procalcitonin ng/mL Vancomycin Trough 17.9 H (5.0-10.0) ug/mL Blood Type Antibody Screen Crossmatch 04/17/20 04/17/20 04/17/20 Range/Units 06:52 06:52 11:29 WBC 3.37 L (4.0-11.0) K/uL RBC 3.61 L (4.30-5.90) M/uL Hgb 9.6 L (12.0-16.0) g/dL Hct 31.1 L (36.0-46.0) % MCV 86.1 (80.0-98.0) fL MCH 26.6 L (27.0-32.0) pg MCHC 30.9 L (31.0-37.0) g/dL RDW Std Deviation 46.0 (28.0-62.0) fl RDW Coeff of Speedy 15 (11.0-15.0) % Plt Count 149 L (150-400) K/uL MPV 9.90 (7.40-12.00) fL Neut % (Auto) 68.8 (48.0-80.0) % Lymph % (Auto) 16.3 (16.0-40.0) % Bowman % (Auto) 11.0 (0.0-15.0) % Eos % (Auto) 3.9 (0.0-7.0) % Baso % (Auto) 0.0 (0.0-1.5) % Neut # (Auto) 2.3 (1.4-5.7) K/uL Lymph # (Auto) 0.6 (0.6-2.4) K/uL Bowman # (Auto) 0.4 (0.0-0.8) K/uL Eos # (Auto) 0.1 (0.0-0.7) K/uL Baso # (Auto) 0.0 (0.0-0.1) K/uL Nucleated RBC % 0.0 /100WBC Nucleated RBCs # 0 K/uL ABG pH (7.35-7.45) ABG pCO2 (35-45) mmHG ABG pO2 (75-100) mmHG ABG HCO3 (22-26) mEq/L ABG Total CO2 ABG Base Excess (-2.0-2.0) Sodium 139 (136-145) mmol/L Potassium 4.0 (3.5-5.1) mmol/L Chloride 103 (98-107) mmol/L Carbon Dioxide 27.5 (21.0-32.0) mmol/L BUN 12 (7.0-18.0) mg/dL Creatinine 0.7 (0.6-1.0) mg/dL Est Cr Clr Drug Dosing 100.22 mL/min Estimated GFR (MDRD) > 60.0 ml/min Glucose 115 H (74-106) mg/dL POC Glucose 185 H (60-110) mg/dL Calcium 8.4 L (8.5-10.1) mg/dL Total Bilirubin 0.9 (0.2-1.0) mg/dL AST 16 (15-37) IU/L ALT 25 (14-63) IU/L Alkaline Phosphatase 82 (46-116) U/L Total Protein 6.7 (6.4-8.2) g/dL Albumin 2.2 L (3.4-5.0) g/dL Globulin 4.5 H (2.6-4.0) g/dL Albumin/Globulin Ratio 0.5 L (0.9-1.6) Procalcitonin ng/mL Vancomycin Trough (5.0-10.0) ug/mL Blood Type Antibody Screen Crossmatch [facility] Results Last 24 Hours: Microbiology 04/15/20 15:53 Aerobic Blood Culture - Preliminary Blood - Venous - Lab Draw NO GROWTH AFTER 1 DAY Anaerobic Blood Culture - Preliminary NO GROWTH AFTER 1 DAY 04/15/20 15:32 Aerobic Blood Culture - Preliminary Blood - Venous NO GROWTH AFTER 1 DAY Anaerobic Blood Culture - Preliminary NO GROWTH AFTER 1 DAY 04/16/20 12:35 Stool Occult Blood (RAMOS) - Final Stool / Feces Med Orders - Current: Current Medications Acetaminophen (Tylenol) 650 mg PO Q4H PRN PRN Reason: Pain (Mild 1-3)/fever Last Admin: 04/17/20 08:09 Dose: 650 mg Documented by: Albuterol/Ipratropium (Duoneb 3.0-0.5 Mg/3 Ml) 3 ml NEB Q4HRRT PRN PRN Reason: Shortness Of Breath/wheezing Aspirin (Halfprin) 81 mg PO DAILY [facility] Last Admin: 04/17/20 08:08 Dose: 81 mg Documented by: Atorvastatin Calcium (Lipitor) 80 mg PO BEDTIME [facility] Carvedilol (Coreg) 6.25 mg PO BID [facility] Last Admin: 04/17/20 08:08 Dose: 6.25 mg Documented by: Clopidogrel Bisulfate (Plavix) 75 mg PO DAILY [facility] Last Admin: 04/17/20 08:08 Dose: 75 mg Documented by: Dextrose/Water (Dextrose 50% In Water) 50 ml IV ASDIRECTED PRN PRN Reason: Hypoglycemia Docusate Sodium (Colace) 100 mg PO BID PRN PRN Reason: Constipation Doxycycline Hyclate (Vibramycin) 100 mg PO BID [facility] Last Admin: 04/17/20 08:09 Dose: 100 mg Documented by: Enoxaparin Sodium (Lovenox) 40 mg SUBCUT BID [facility] Last Admin: 04/17/20 08:11 Dose: 40 mg Documented by: Furosemide (Lasix) 40 mg PO DAILY [facility] Last Admin: 04/17/20 09:25 Dose: 40 mg Documented by: Glucagon (Glucagen) 1 mg IM ASDIRECTED PRN PRN Reason: Hypoglycemia Cefepime HCl 2 gm/ Premix 50 mls @ 100 mls/hr IV Q8H [facility] Last Admin: 04/17/20 08:12 Dose: 100 mls/hr Documented by: Vancomycin HCl 2 gm/ Premix 400 mls @ 200 mls/hr IV Q12H [facility] Last Admin: 04/17/20 09:25 Dose: 200 mls/hr Documented by: Insulin Aspart (Novolog) 0 unit SUBCUT TIDAC [facility]; Protocol Last Admin: 04/17/20 07:38 Dose: Not Given Documented by: Insulin Aspart (Novolog) 20 unit SUBCUT TIDAC [facility] Last Admin: 04/17/20 07:35 Dose: 20 units Documented by: Insulin Glargine (Lantus Solostar) 50 units SUBCUT BEDTIME [facility] Last Admin: 04/16/20 20:40 Dose: 50 units Documented by: Nitroglycerin (Nitrostat) 0.4 mg SL .EVERY 5 MINUTES PRN PRN Reason: Chest Pain Ondansetron HCl (Zofran) 4 mg IVPUSH Q8H PRN PRN Reason: Nausea/Vomiting Last Admin: 04/16/20 19:02 Dose: 4 mg Documented by: Sodium Chloride (Saline Flush) 10 ml FLUSH ASDIRECTED PRN PRN Reason: Keep Vein Open Sodium Chloride (Saline Flush) 2.5 ml FLUSH ASDIRECTED PRN PRN Reason: Keep Vein Open Vancomycin HCl (Pharmacy To Dose - Vancomycin) 1 dose .XX ASDIRECTED [facility] Discontinued Medications Dextrose/Water (Dextrose 50% In Water) 50 ml IV ASDIRECTED PRN PRN Reason: Hypoglycemia Glucagon (Glucagen) 1 mg IM ASDIRECTED PRN PRN Reason: Hypoglycemia Cefepime HCl 2 gm/ Premix 50 mls @ 100 mls/hr IV ONETIME ONE Stop: 04/15/20 15:40 Last Admin: 04/15/20 16:26 Dose: 100 mls/hr Documented by: Vancomycin HCl 2 gm/ Premix 400 mls @ 200 mls/hr IV ONETIME ONE Stop: 04/15/20 17:59 Last Admin: 04/15/20 16:25 Dose: 200 mls/hr Documented by: Cefepime HCl 2 gm/ Premix 50 mls @ 100 mls/hr IV Q8H [facility] Vancomycin HCl 2 gm/ Premix 400 mls @ 200 mls/hr IV Q12H [facility] Last Admin: 04/16/20 07:15 Dose: 200 mls/hr Documented by: Vancomycin HCl 2 gm/ Premix 400 mls @ 200 mls/hr IV Q12H [facility] Last Admin: 04/17/20 10:32 Dose: Not Given Documented by: Influenza Virus Vaccine (Pharmacy To Dose - Influenza Vaccine) 1 each IM ONETIME ONE Stop: 04/15/20 22:33 Influenza Virus Vaccine (Afluria Quad 2020-21 (3yr Up)) 60 mcg IM .ONCE ONE Stop: 04/16/20 09:01 Iopamidol (Isovue Multipack-370 (76%)) 80 ml IVPUSH ONETIME STA Stop: 04/15/20 16:53 Last Admin: 04/15/20 16:52 Dose: 80 ml Documented by: Lisinopril (Prinivil) 5 mg PO DAILY [facility] Last Admin: 04/16/20 09:42 Dose: 5 mg Documented by: Sertraline HCl (Zoloft) 200 mg PO DAILY [facility] Last Admin: 04/16/20 09:42 Dose: 200 mg Documented by: Vancomycin HCl (Vancomycin) 2,250 mg IV STAT STA Stop: 04/15/20 15:18 Last Admin: 04/15/20 16:26 Dose: Not Given Documented by: - Exam Quality Assessment: Supplemental Oxygen General: Alert, Oriented Lungs: Clear to Auscultation, Normal Respiratory Effort Cardiovascular: Regular Rate, Regular Rhythm GI/Abdominal Exam: Normal Bowel Sounds, Soft, Non-Tender Psy/Mental Status: Alert Sepsis Event Note - Evaluation Sepsis Screening Result: No Definite Risk - Focused Exam Vital Signs: Vital Signs Temp Pulse Pulse Resp BP BP Pulse Ox 04/17/20 08:08 68 123/68 04/17/20 08:00 97.8 F 68 19 123/88 94 L 04/17/20 06:34 04/17/20 04:18 97.7 F 80 19 107/65 92 L Pulse Ox 04/17/20 08:08 04/17/20 08:00 04/17/20 06:34 88 L 04/17/20 04:18 - Problem List & Annotations (1) Healthcare-associated pneumonia SNOMED Code(s): 841997159, 568947926 Code(s): J18.9 - PNEUMONIA, UNSPECIFIED ORGANISM Status: Acute Current Visit: Yes (2) Hypoxia SNOMED Code(s): 411577014 Code(s): R09.02 - HYPOXEMIA Status: Acute Current Visit: Yes (3) Syncope SNOMED Code(s): 285090022 Code(s): R55 - SYNCOPE AND COLLAPSE Status: Acute Current Visit: Yes Qualifiers: Syncope type: unspecified Qualified Code(s): R55 - Syncope and collapse (4) Acute coronary syndrome SNOMED Code(s): 088454848 Code(s): I24.9 - ACUTE ISCHEMIC HEART DISEASE, UNSPECIFIED Status: Acute Current Visit: No (5) Acute respiratory failure with hypoxia SNOMED Code(s): 62619097, 447713117 Code(s): J96.01 - ACUTE RESPIRATORY FAILURE WITH HYPOXIA Status: Acute Current Visit: Yes (6) COVID-19 SNOMED Code(s): 738442968 Code(s): U07.1 - COVID-19 Status: Acute Current Visit: No (7) History of CVA (cerebrovascular accident) SNOMED Code(s): 782366301 Code(s): Z86.73 - PRSNL HX OF TIA (TIA), AND CEREB INFRC W/O RESID DEFICITS Status: Acute Current Visit: No (8) Orthostatic hypotension SNOMED Code(s): 37203755 Code(s): I95.1 - ORTHOSTATIC HYPOTENSION Status: Acute Current Visit: No (9) DM type 2 (diabetes mellitus, type 2) SNOMED Code(s): 45668187 Code(s): E11.9 - TYPE 2 DIABETES MELLITUS WITHOUT COMPLICATIONS Status: Chronic Current Visit: Yes Qualifiers: Diabetes mellitus care home insulin use: with care home use Diabetes mellitus complication status: with hyperglycemia Qualified Code(s): E11.65 - Type 2 diabetes mellitus with hyperglycemia; 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 (10) HLD (hyperlipidemia) SNOMED Code(s): 41412950 Code(s): E78.5 - HYPERLIPIDEMIA, UNSPECIFIED Status: Chronic Current Visit: No (11) HTN (hypertension) SNOMED Code(s): 57334896 Code(s): I10 - ESSENTIAL (PRIMARY) HYPERTENSION Status: Chronic Current Visit: Yes (12) Obesity SNOMED Code(s): 349139783, 720018095 Code(s): E66.9 - OBESITY, UNSPECIFIED Status: Chronic Current Visit: Yes Qualifiers: Serious obesity comorbidity presence: with serious comorbidity (13) Sarcoidosis of lung SNOMED Code(s): 44027893 Code(s): D86.0 - SARCOIDOSIS OF LUNG Status: Chronic Current Visit: Yes - Problem List Review Problem List Initiated/Reviewed/Updated: Yes - My Orders Last 24 Hours: My Active Orders 04/16/20 17:31 Orthostatic Vital Signs [RC] Q4H 04/16/20 18:46 Ondansetron [Zofran] 4 mg IVPUSH Q8H PRN 04/16/20 21:00 Insulin Glarg,Human.Rec.Analog [LantUS Solostar] 50 units SUBCUT BEDTIME 04/17/20 08:20 Nitroglycerin [Nitrostat] 0.4 mg SL .EVERY 5 MINUTES PRN 04/17/20 09:00 Furosemide [Lasix] 40 mg PO DAILY 04/17/20 21:00 atorvaSTATin [Lipitor] 80 mg PO BEDTIME - Plan Plan:: Acute on chronic hypoxic respiratory failure secondary to pneumonia, possibly HAP- IV vancomycin, cefepime, doxycycline po, duo-nebs, incentive spirometry, Gram cultures pending, check and replete electrolytes as needed, oxygen support as needed, Lovenox 40 twice daily, SSI, orthostatic vitals AnemiaHgb 9.6, after 1 unit blood yesterday, Occult stool pending Diabetesinsulin sliding scale, NovoLog 3 times daily AC, diabetic diet CADPlavix, Coreg twice daily, Lasix 40mg qd Patient assessed by physical therapy, no signs of balance or vestibular disorder noted. Of note patient becomes significantly hypoxic with ambulation and physical therapy exercises. Physical therapy to continue for strengthening.
[2020-04-17] MEDS ORDERED: Albuterol/Ipratropium 4 GM Inhalation Spray INH PRN (13:54)
[2020-04-17] MEDS: atorvaSTATin 40 MG Tab PO SCH (20:26)
[2020-04-17] MEDS: Ondansetron 4 MG/2 ML SDV IVPUSH PRN (20:31)
[2020-04-17] MEDS: Insulin Glargine,Human Rec. Analog 100 Units/ML 3 ML Pen SUBCUT SCH (20:35)
[2020-04-17] MEDS: Fluticasone Propionate 110 MCG/Puff 12 GM Inhaler INH SCH (20:39)
[2020-04-18 06:03] LABS: BLOOD UREA NITROGEN,BUN 10 mg/dL (7.0-18.0); CARBON DIOXIDE,CO2 25.5 mmol/L (21.0-32.0); CHLORIDE,CL 107 mmol/L (98-107); GLUCOSE RANDOM 79 mg/dL (74-106); POTASSIUM,K 4.1 mmol/L (3.5-5.1); SODIUM,NA 141 mmol/L (136-145)
[2020-04-18] MEDS: Cefepime 2 GM in Premix Bag 1 BAG IV SCH ×2 (06:49→16:13)
[2020-04-18] MEDS: Insulin Aspart 100 Units/ML 3 ML Pen SUBCUT SCH ×6 (06:59→19:02)
[2020-04-18] MEDS: Enoxaparin 40 MG/0.4 ML Syringe SUBCUT SCH ×2 (08:05→21:13)
[2020-04-18] MEDS: Vancomycin/Water for INJ (PEG) 2 GM in Premix Bag 1 BAG IV SCH ×2 (08:06→20:58)
[2020-04-18] MEDS: Clopidogrel 75 MG Tab PO SCH (08:10)
[2020-04-18] MEDS: Doxycycline 100 MG Cap PO SCH ×2 (08:10→21:10)
[2020-04-18] MEDS: Furosemide 40 MG Tab PO SCH (08:10)
[2020-04-18] MEDS: Aspirin 81 MG Tab.EC PO SCH (08:10)
[2020-04-18] MEDS: Carvedilol 6.25 MG Tab PO SCH ×2 (08:11→21:10)
[2020-04-18] MEDS: Fluticasone Propionate 110 MCG/Puff 12 GM Inhaler INH SCH ×2 (09:50→22:09)
[2020-04-18] MEDS: Acetaminophen 325 MG Tab PO PRN (11:43)
[2020-04-18] MEDS: Ondansetron 4 MG/2 ML SDV IVPUSH PRN (11:49)
[2020-04-18] MEDS ORDERED: Magnesium Sulfate/Water 2 GM/50 ML BAG IV ONE (12:13)
--- NOTE | 2020-04-18 15:09 | PCM.PN ---
- General Info Date of Service: 04/18/20 Subjective Update: Patient states headache with sinus congestion this morning. Patient states that she still has shortness of breath with ambulation. Denies fever, chills, nausea, vomiting, abdominal pain. - Review of Systems General: Denies: Fever, Chills HEENT: Reports: Sinus Congestion Pulmonary: Reports: Shortness of Breath. Denies: Cough Cardiovascular: Reports: Dyspnea on Exertion. Denies: Chest Pain, Palpitations Gastrointestinal: Denies: Abdominal Pain, Nausea, Vomiting Neurological: Reports: Headache. Denies: Confusion, Dizziness - Patient Data Vitals - Most Recent: Last Vital Signs Temp 97.9 F 04/18/20 12:00 Pulse 89 04/18/20 12:00 Resp 22 H 04/18/20 12:00 BP 129/81 04/18/20 12:00 Pulse Ox 92 L 04/18/20 12:00 Orthostatic Blood Pressure [ 118/79 Standing] Orthostatic Blood Pressure [ 152/91 Sitting] Orthostatic Blood Pressure [ 129/81 Supine] Weight - Most Recent: 313 lb 12.8 oz I&O - Last 24 Hours: Intake & Output 04/18/20 04/18/20 04/18/20 06:59 14:59 22:59 Intake Total 200 Output Total 1000 Balance -800 Lab Results Last 24 Hours: Laboratory Results - last 24 hr 04/17/20 04/17/20 04/18/20 Range/Units 17:52 20:34 05:10 WBC 3.61 L (4.0-11.0) K/uL RBC 3.31 L (4.30-5.90) M/uL Hgb 8.9 L (12.0-16.0) g/dL Hct 28.7 L (36.0-46.0) % MCV 86.7 (80.0-98.0) fL MCH 26.9 L (27.0-32.0) pg MCHC 31.0 (31.0-37.0) g/dL RDW Std Deviation 46.2 (28.0-62.0) fl RDW Coeff of Speedy 15 (11.0-15.0) % Plt Count 155 (150-400) K/uL MPV 10.00 (7.40-12.00) fL Neut % (Auto) 64.5 (48.0-80.0) % Lymph % (Auto) 18.6 (16.0-40.0) % [place] % (Auto) 13.3 (0.0-15.0) % Eos % (Auto) 3.6 (0.0-7.0) % Baso % (Auto) 0.0 (0.0-1.5) % Neut # (Auto) 2.3 (1.4-5.7) K/uL Lymph # (Auto) 0.7 (0.6-2.4) K/uL [place] # (Auto) 0.5 (0.0-0.8) K/uL Eos # (Auto) 0.1 (0.0-0.7) K/uL Baso # (Auto) 0.0 (0.0-0.1) K/uL Nucleated RBC % 0.0 /100WBC Nucleated RBCs # 0 K/uL Smear Path Review Absolute Retic (20-80) K/uL Percent Retic (0.5-1.5) % Immature Retic Fraction % Sodium (136-145) mmol/L Potassium (3.5-5.1) mmol/L Chloride (98-107) mmol/L Carbon Dioxide (21.0-32.0) mmol/L BUN (7.0-18.0) mg/dL Creatinine (0.6-1.0) mg/dL Est Cr Clr Drug Dosing mL/min Estimated GFR (MDRD) ml/min Glucose (74-106) mg/dL POC Glucose 140 H 159 H (60-110) mg/dL Calcium (8.5-10.1) mg/dL Magnesium (1.8-2.4) mg/dL Iron (50-175) ug/dL TIBC (250-450) ug/dL % Saturation (20-55) % Transferrin Ferritin (8-252) ng/mL Total Bilirubin (0.2-1.0) mg/dL AST (15-37) IU/L ALT (14-63) IU/L Alkaline Phosphatase (46-116) U/L Total Protein (6.4-8.2) g/dL Albumin (3.4-5.0) g/dL Globulin (2.6-4.0) g/dL Albumin/Globulin Ratio (0.9-1.6) Vitamin B12 (193-986) pg/mL Folate (8.60-58.90) ng/mL 04/18/20 04/18/20 04/18/20 Range/Units 05:10 05:10 05:10 WBC (4.0-11.0) K/uL RBC 3.28 L (4.30-5.90) M/uL Hgb (12.0-16.0) g/dL Hct (36.0-46.0) % MCV (80.0-98.0) fL MCH (27.0-32.0) pg MCHC (31.0-37.0) g/dL RDW Std Deviation (28.0-62.0) fl RDW Coeff of Speedy (11.0-15.0) % Plt Count (150-400) K/uL MPV (7.40-12.00) fL Neut % (Auto) (48.0-80.0) % Lymph % (Auto) (16.0-40.0) % [place] % (Auto) (0.0-15.0) % Eos % (Auto) (0.0-7.0) % Baso % (Auto) (0.0-1.5) % Neut # (Auto) (1.4-5.7) K/uL Lymph # (Auto) (0.6-2.4) K/uL [place] # (Auto) (0.0-0.8) K/uL Eos # (Auto) (0.0-0.7) K/uL Baso # (Auto) (0.0-0.1) K/uL Nucleated RBC % /100WBC Nucleated RBCs # K/uL Smear Path Review SENT TO PATHOLOGY Absolute Retic 114.50 H (20-80) K/uL Percent Retic 3.5 H (0.5-1.5) % Immature Retic Fraction 28 % Sodium 141 (136-145) mmol/L Potassium 4.1 (3.5-5.1) mmol/L Chloride 107 (98-107) mmol/L Carbon Dioxide 25.5 (21.0-32.0) mmol/L BUN 10 (7.0-18.0) mg/dL Creatinine 0.7 (0.6-1.0) mg/dL Est Cr Clr Drug Dosing 100.22 mL/min Estimated GFR (MDRD) > 60.0 ml/min Glucose 79 (74-106) mg/dL POC Glucose (60-110) mg/dL Calcium 8.1 L (8.5-10.1) mg/dL Magnesium 1.7 L (1.8-2.4) mg/dL Iron (50-175) ug/dL TIBC (250-450) ug/dL % Saturation (20-55) % Transferrin Ferritin (8-252) ng/mL Total Bilirubin 0.4 (0.2-1.0) mg/dL AST 16 (15-37) IU/L ALT 22 (14-63) IU/L Alkaline Phosphatase 76 (46-116) U/L Total Protein 6.2 L (6.4-8.2) g/dL Albumin 2.0 L (3.4-5.0) g/dL Globulin 4.2 H (2.6-4.0) g/dL Albumin/Globulin Ratio 0.5 L (0.9-1.6) Vitamin B12 (193-986) pg/mL Folate (8.60-58.90) ng/mL 04/18/20 04/18/20 04/18/20 Range/Units 05:10 05:10 06:02 WBC (4.0-11.0) K/uL RBC (4.30-5.90) M/uL Hgb (12.0-16.0) g/dL Hct (36.0-46.0) % MCV (80.0-98.0) fL MCH (27.0-32.0) pg MCHC (31.0-37.0) g/dL RDW Std Deviation (28.0-62.0) fl RDW Coeff of Speedy (11.0-15.0) % Plt Count (150-400) K/uL MPV (7.40-12.00) fL Neut % (Auto) (48.0-80.0) % Lymph % (Auto) (16.0-40.0) % [place] % (Auto) (0.0-15.0) % Eos % (Auto) (0.0-7.0) % Baso % (Auto) (0.0-1.5) % Neut # (Auto) (1.4-5.7) K/uL Lymph # (Auto) (0.6-2.4) K/uL [place] # (Auto) (0.0-0.8) K/uL Eos # (Auto) (0.0-0.7) K/uL Baso # (Auto) (0.0-0.1) K/uL Nucleated RBC % /100WBC Nucleated RBCs # K/uL Smear Path Review Absolute Retic (20-80) K/uL Percent Retic (0.5-1.5) % Immature Retic Fraction % Sodium (136-145) mmol/L Potassium (3.5-5.1) mmol/L Chloride (98-107) mmol/L Carbon Dioxide (21.0-32.0) mmol/L BUN (7.0-18.0) mg/dL Creatinine (0.6-1.0) mg/dL Est Cr Clr Drug Dosing mL/min Estimated GFR (MDRD) ml/min Glucose (74-106) mg/dL POC Glucose 89 (60-110) mg/dL Calcium (8.5-10.1) mg/dL Magnesium (1.8-2.4) mg/dL Iron 24 L (50-175) ug/dL TIBC 185 L (250-450) ug/dL % Saturation 12.97 L (20-55) % Transferrin 129.5 Ferritin 263 H (8-252) ng/mL Total Bilirubin (0.2-1.0) mg/dL AST (15-37) IU/L ALT (14-63) IU/L Alkaline Phosphatase (46-116) U/L Total Protein (6.4-8.2) g/dL Albumin (3.4-5.0) g/dL Globulin (2.6-4.0) g/dL Albumin/Globulin Ratio (0.9-1.6) Vitamin B12 365 (193-986) pg/mL Folate 9.20 (8.60-58.90) ng/mL 04/18/20 Range/Units 11:50 WBC (4.0-11.0) K/uL RBC (4.30-5.90) M/uL Hgb (12.0-16.0) g/dL Hct (36.0-46.0) % MCV (80.0-98.0) fL MCH (27.0-32.0) pg MCHC (31.0-37.0) g/dL RDW Std Deviation (28.0-62.0) fl RDW Coeff of Speedy (11.0-15.0) % Plt Count (150-400) K/uL MPV (7.40-12.00) fL Neut % (Auto) (48.0-80.0) % Lymph % (Auto) (16.0-40.0) % [place] % (Auto) (0.0-15.0) % Eos % (Auto) (0.0-7.0) % Baso % (Auto) (0.0-1.5) % Neut # (Auto) (1.4-5.7) K/uL Lymph # (Auto) (0.6-2.4) K/uL [place] # (Auto) (0.0-0.8) K/uL Eos # (Auto) (0.0-0.7) K/uL Baso # (Auto) (0.0-0.1) K/uL Nucleated RBC % /100WBC Nucleated RBCs # K/uL Smear Path Review Absolute Retic (20-80) K/uL Percent Retic (0.5-1.5) % Immature Retic Fraction % Sodium (136-145) mmol/L Potassium (3.5-5.1) mmol/L Chloride (98-107) mmol/L Carbon Dioxide (21.0-32.0) mmol/L BUN (7.0-18.0) mg/dL Creatinine (0.6-1.0) mg/dL Est Cr Clr Drug Dosing mL/min Estimated GFR (MDRD) ml/min Glucose (74-106) mg/dL POC Glucose 108 (60-110) mg/dL Calcium (8.5-10.1) mg/dL Magnesium (1.8-2.4) mg/dL Iron (50-175) ug/dL TIBC (250-450) ug/dL % Saturation (20-55) % Transferrin Ferritin (8-252) ng/mL Total Bilirubin (0.2-1.0) mg/dL AST (15-37) IU/L ALT (14-63) IU/L Alkaline Phosphatase (46-116) U/L Total Protein (6.4-8.2) g/dL Albumin (3.4-5.0) g/dL Globulin (2.6-4.0) g/dL Albumin/Globulin Ratio (0.9-1.6) Vitamin B12 (193-986) pg/mL Folate (8.60-58.90) ng/mL Ramos Results Last 24 Hours: Microbiology 04/15/20 15:53 Aerobic Blood Culture - Preliminary Blood - Venous - Lab Draw NO GROWTH AFTER 2 DAYS Anaerobic Blood Culture - Preliminary NO GROWTH AFTER 2 DAYS 04/15/20 15:32 Aerobic Blood Culture - Preliminary Blood - Venous NO GROWTH AFTER 2 DAYS Anaerobic Blood Culture - Preliminary NO GROWTH AFTER 2 DAYS Med Orders - Current: Current Medications Acetaminophen (Tylenol) 650 mg PO Q4H PRN PRN Reason: Pain (Mild 1-3)/fever Last Admin: 04/18/20 11:43 Dose: 650 mg Documented by: Albuterol/Ipratropium (Duoneb 3.0-0.5 Mg/3 Ml) 3 ml NEB Q4HRRT PRN PRN Reason: Shortness Of Breath/wheezing Albuterol/Ipratropium (Combivent Respimat) 0 gm INH Q4H PRN PRN Reason: Dyspnea/wheezing Aspirin (Halfprin) 81 mg PO DAILY [facility] Last Admin: 04/18/20 08:10 Dose: 81 mg Documented by: Atorvastatin Calcium (Lipitor) 80 mg PO BEDTIME [facility] Last Admin: 04/17/20 20:26 Dose: 80 mg Documented by: Carvedilol (Coreg) 6.25 mg PO BID [facility] Last Admin: 04/18/20 08:11 Dose: 6.25 mg Documented by: Clopidogrel Bisulfate (Plavix) 75 mg PO DAILY [facility] Last Admin: 04/18/20 08:10 Dose: 75 mg Documented by: Dextrose/Water (Dextrose 50% In Water) 50 ml IV ASDIRECTED PRN PRN Reason: Hypoglycemia Docusate Sodium (Colace) 100 mg PO BID PRN PRN Reason: Constipation Doxycycline Hyclate (Vibramycin) 100 mg PO BID [facility] Last Admin: 04/18/20 08:10 Dose: 100 mg Documented by: Enoxaparin Sodium (Lovenox) 40 mg SUBCUT BID [facility] Last Admin: 04/18/20 08:05 Dose: 40 mg Documented by: Fluticasone Propionate (Flovent Hfa 110 Mcg) 0 gm INH BID [facility] Last Admin: 04/18/20 09:50 Dose: 2 puff Documented by: Furosemide (Lasix) 40 mg PO DAILY [facility] Last Admin: 04/18/20 08:10 Dose: 40 mg Documented by: Glucagon (Glucagen) 1 mg IM ASDIRECTED PRN PRN Reason: Hypoglycemia Cefepime HCl 2 gm/ Premix 50 mls @ 100 mls/hr IV Q8H [facility] Last Admin: 04/18/20 06:49 Dose: 100 mls/hr Documented by: Vancomycin HCl 2 gm/ Premix 400 mls @ 200 mls/hr IV Q12H [facility] Last Admin: 04/18/20 08:06 Dose: 200 mls/hr Documented by: Insulin Aspart (Novolog) 0 unit SUBCUT TIDAC [facility]; Protocol Last Admin: 04/18/20 12:38 Dose: Not Given Documented by: Insulin Aspart (Novolog) 20 unit SUBCUT TIDAC [facility] Last Admin: 04/18/20 12:38 Dose: 20 units Documented by: Insulin Glargine (Lantus Solostar) 50 units SUBCUT BEDTIME [facility] Last Admin: 04/17/20 20:35 Dose: 50 units Documented by: Nitroglycerin (Nitrostat) 0.4 mg SL .EVERY 5 MINUTES PRN PRN Reason: Chest Pain Ondansetron HCl (Zofran) 4 mg IVPUSH Q8H PRN PRN Reason: Nausea/Vomiting Last Admin: 04/18/20 11:49 Dose: 4 mg Documented by: Sodium Chloride (Saline Flush) 10 ml FLUSH ASDIRECTED PRN PRN Reason: Keep Vein Open Sodium Chloride (Saline Flush) 2.5 ml FLUSH ASDIRECTED PRN PRN Reason: Keep Vein Open Vancomycin HCl (Pharmacy To Dose - Vancomycin) 1 dose .XX ASDIRECTED [facility] Discontinued Medications Dextrose/Water (Dextrose 50% In Water) 50 ml IV ASDIRECTED PRN PRN Reason: Hypoglycemia Glucagon (Glucagen) 1 mg IM ASDIRECTED PRN PRN Reason: Hypoglycemia Cefepime HCl 2 gm/ Premix 50 mls @ 100 mls/hr IV ONETIME ONE Stop: 04/15/20 15:40 Last Admin: 04/15/20 16:26 Dose: 100 mls/hr Documented by: Vancomycin HCl 2 gm/ Premix 400 mls @ 200 mls/hr IV ONETIME ONE Stop: 04/15/20 17:59 Last Admin: 04/15/20 16:25 Dose: 200 mls/hr Documented by: Cefepime HCl 2 gm/ Premix 50 mls @ 100 mls/hr IV Q8H [facility] Vancomycin HCl 2 gm/ Premix 400 mls @ 200 mls/hr IV Q12H [facility] Last Admin: 04/16/20 07:15 Dose: 200 mls/hr Documented by: Vancomycin HCl 2 gm/ Premix 400 mls @ 200 mls/hr IV Q12H [facility] Last Admin: 04/17/20 10:32 Dose: Not Given Documented by: Magnesium Sulfate (Magnesium Sulfate In Water Premix) 2 gm in 50 mls @ 50 mls/hr IV ONETIME ONE Stop: 04/18/20 13:12 Last Admin: 04/18/20 12:40 Dose: 50 mls/hr Documented by: Influenza Virus Vaccine (Pharmacy To Dose - Influenza Vaccine) 1 each IM ONETIME ONE Stop: 04/15/20 22:33 Influenza Virus Vaccine (Afluria Quad 2020-21 (3yr Up)) 60 mcg IM .ONCE ONE Stop: 04/16/20 09:01 Iopamidol (Isovue Multipack-370 (76%)) 80 ml IVPUSH ONETIME STA Stop: 04/15/20 16:53 Last Admin: 04/15/20 16:52 Dose: 80 ml Documented by: Lisinopril (Prinivil) 5 mg PO DAILY [facility] Last Admin: 04/16/20 09:42 Dose: 5 mg Documented by: Sertraline HCl (Zoloft) 200 mg PO DAILY [facility] Last Admin: 04/16/20 09:42 Dose: 200 mg Documented by: Vancomycin HCl (Vancomycin) 2,250 mg IV STAT STA Stop: 04/15/20 15:18 Last Admin: 04/15/20 16:26 Dose: Not Given Documented by: - Exam Quality Assessment: Supplemental Oxygen General: Alert, Oriented Lungs: Clear to Auscultation, Normal Respiratory Effort Cardiovascular: Regular Rate, Regular Rhythm GI/Abdominal Exam: Normal Bowel Sounds, Soft, Non-Tender Sepsis Event Note - Evaluation Sepsis Screening Result: No Definite Risk - Focused Exam Vital Signs: Vital Signs Temp Pulse Pulse Resp BP BP Pulse Ox 04/18/20 12:00 97.9 F 89 22 H 129/81 92 L 04/18/20 08:11 82 132/72 04/18/20 08:00 98.2 F 82 19 133/68 94 L 04/18/20 03:18 98.4 F 81 18 104/55 L 93 L - Problem List & Annotations (1) Healthcare-associated pneumonia SNOMED Code(s): 130751520, 473788058 Code(s): J18.9 - PNEUMONIA, UNSPECIFIED ORGANISM Status: Acute Current Visit: Yes (2) Hypoxia SNOMED Code(s): 466309746 Code(s): R09.02 - HYPOXEMIA Status: Acute Current Visit: Yes (3) Syncope SNOMED Code(s): 378577369 Code(s): R55 - SYNCOPE AND COLLAPSE Status: Acute Current Visit: Yes Qualifiers: Syncope type: unspecified Qualified Code(s): R55 - Syncope and collapse (4) Acute coronary syndrome SNOMED Code(s): 854925234 Code(s): I24.9 - ACUTE ISCHEMIC HEART DISEASE, UNSPECIFIED Status: Acute Current Visit: No (5) Acute respiratory failure with hypoxia SNOMED Code(s): 51113331, 806376806 Code(s): J96.01 - ACUTE RESPIRATORY FAILURE WITH HYPOXIA Status: Acute Current Visit: Yes (6) COVID-19 SNOMED Code(s): 975028326 Code(s): U07.1 - COVID-19 Status: Acute Current Visit: No (7) History of CVA (cerebrovascular accident) SNOMED Code(s): 404589871 Code(s): Z86.73 - PRSNL HX OF TIA (TIA), AND CEREB INFRC W/O RESID DEFICITS Status: Acute Current Visit: No (8) Orthostatic hypotension SNOMED Code(s): 43995415 Code(s): I95.1 - ORTHOSTATIC HYPOTENSION Status: Acute Current Visit: Yes (9) DM type 2 (diabetes mellitus, type 2) SNOMED Code(s): 96597687 Code(s): E11.9 - TYPE 2 DIABETES MELLITUS WITHOUT COMPLICATIONS Status: Chronic Current Visit: Yes Qualifiers: Diabetes mellitus tank terminal gauger insulin use: with tank terminal gauger use Diabetes mellitus complication status: with hyperglycemia Qualified Code(s): E11.65 - Type 2 diabetes mellitus with hyperglycemia; Z79.4 - [employer] (current) use of insulin (10) HLD (hyperlipidemia) SNOMED Code(s): 04861449 Code(s): E78.5 - HYPERLIPIDEMIA, UNSPECIFIED Status: Chronic Current Visit: No (11) HTN (hypertension) SNOMED Code(s): 60227555 Code(s): I10 - ESSENTIAL (PRIMARY) HYPERTENSION Status: Chronic Current Visit: Yes (12) Obesity SNOMED Code(s): 197466978, 775691373 Code(s): E66.9 - OBESITY, UNSPECIFIED Status: Chronic Current Visit: Yes Qualifiers: Serious obesity comorbidity presence: with serious comorbidity (13) Sarcoidosis of lung SNOMED Code(s): 56859559 Code(s): D86.0 - SARCOIDOSIS OF LUNG Status: Chronic Current Visit: Yes - Problem List Review Problem List Initiated/Reviewed/Updated: Yes - My Orders Last 24 Hours: My Active Orders 04/17/20 21:00 atorvaSTATin [Lipitor] 80 mg PO BEDTIME - Plan Plan:: Acute on chronic hypoxic respiratory failure secondary to pneumonia, possibly HAP- IV vancomycin, cefepime, doxycycline po, duo-nebs, incentive spirometry, check and replete electrolytes as needed, oxygen support as needed, Lovenox 40 twice daily, SSI, orthostatic vitals. AnemiaHgb 8.9, after 1 unit blood yesterday, Occult blood stool NEGATIVE. Iron studies pending Diabetesinsulin sliding scale, NovoLog 20units 3 times daily AC, diabetic diet CADPlavix, Coreg twice daily, Lasix 40mg qd Of note patient becomes significantly hypoxic with ambulation and physical therapy exercises. Physical therapy to continue for strengthening. Will refer patient to pulmonology for follow up
[2020-04-18] MEDS: atorvaSTATin 40 MG Tab PO SCH (21:10)
[2020-04-18] MEDS: Ferrous Sulfate 325 MG Tab PO SCH (21:13)
[2020-04-18] MEDS: Ascorbic Acid 500 MG Tab PO SCH (21:13)
[2020-04-18] MEDS: Insulin Glargine,Human Rec. Analog 100 Units/ML 3 ML Pen SUBCUT SCH (21:21)
[2020-04-19] MEDS: Cefepime 2 GM in Premix Bag 1 BAG IV SCH ×2 (00:50→06:45)
[2020-04-19] MEDS ORDERED: Ferrous Sulfate 325 MG Tab PO SCH (08:00)
[2020-04-19 08:05] LABS: BLOOD UREA NITROGEN,BUN 11 mg/dL (7.0-18.0); CARBON DIOXIDE,CO2 25.4 mmol/L (21.0-32.0); CHLORIDE,CL 105 mmol/L (98-107); GLUCOSE RANDOM 133 mg/dL (74-106); POTASSIUM,K 4.4 mmol/L (3.5-5.1); SODIUM,NA 138 mmol/L (136-145)
[2020-04-19] MEDS: Fluticasone Propionate 110 MCG/Puff 12 GM Inhaler INH SCH (08:49)
[2020-04-19] MEDS: Ondansetron 4 MG/2 ML SDV IVPUSH PRN (09:17)
[2020-04-19] MEDS: Ferrous Sulfate 325 MG Tab PO SCH ×2 (09:18→17:10)
[2020-04-19] MEDS: Ascorbic Acid 500 MG Tab PO SCH ×2 (09:18→17:10)
[2020-04-19] MEDS: Insulin Aspart 100 Units/ML 3 ML Pen SUBCUT SCH ×6 (09:23→17:41)
[2020-04-19] MEDS: Doxycycline 100 MG Cap PO SCH (09:24)
[2020-04-19] MEDS: Carvedilol 6.25 MG Tab PO SCH (09:24)
[2020-04-19] MEDS: Aspirin 81 MG Tab.EC PO SCH (09:24)
[2020-04-19] MEDS: Clopidogrel 75 MG Tab PO SCH (09:24)
[2020-04-19] MEDS: Enoxaparin 40 MG/0.4 ML Syringe SUBCUT SCH (09:25)
[2020-04-19] MEDS: Furosemide 40 MG Tab PO SCH (09:25)
[2020-04-19] MEDS: Vancomycin/Water for INJ (PEG) 2 GM in Premix Bag 1 BAG IV SCH (12:00)
--- NOTE | 2020-04-19 13:34 | PCM.PN ---
- General Info Date of Service: 04/19/20 Subjective Update: Patient states that she feels about the same as previous days, and still has shortness of breath with ambulation. Denies fever, chills, nausea, vomiting. - Review of Systems General: Denies: Fever, Chills Pulmonary: Reports: Shortness of Breath. Denies: Cough Cardiovascular: Reports: Dyspnea on Exertion. Denies: Chest Pain Gastrointestinal: Denies: Abdominal Pain, Nausea, Vomiting Neurological: Denies: Confusion, Dizziness, Headache - Patient Data Vitals - Most Recent: Last Vital Signs Temp 97.7 F 04/19/20 12:00 Pulse 83 04/19/20 12:00 Resp 18 04/19/20 12:00 BP 131/75 04/19/20 12:00 Pulse Ox 92 L 04/19/20 12:00 Orthostatic Blood Pressure [ 113/71 Standing] Orthostatic Blood Pressure [ 108/61 Sitting] Orthostatic Blood Pressure [ 141/84 Supine] Weight - Most Recent: 315 lb 8 oz I&O - Last 24 Hours: Intake & Output 04/18/20 04/19/20 04/19/20 22:59 06:59 14:59 Intake Total 480 950 Output Total 1850 950 Balance -1370 0 Lab Results Last 24 Hours: Laboratory Results - last 24 hr 04/18/20 04/18/20 04/18/20 Range/Units 17:20 18:45 21:18 WBC (4.0-11.0) K/uL RBC (4.30-5.90) M/uL Hgb (12.0-16.0) g/dL Hct (36.0-46.0) % MCV (80.0-98.0) fL MCH (27.0-32.0) pg MCHC (31.0-37.0) g/dL RDW Std Deviation (28.0-62.0) fl RDW Coeff of Speedy (11.0-15.0) % Plt Count (150-400) K/uL MPV (7.40-12.00) fL Neut % (Auto) (48.0-80.0) % Lymph % (Auto) (16.0-40.0) % Whiteside % (Auto) (0.0-15.0) % Eos % (Auto) (0.0-7.0) % Baso % (Auto) (0.0-1.5) % Neut # (Auto) (1.4-5.7) K/uL Lymph # (Auto) (0.6-2.4) K/uL Whiteside # (Auto) (0.0-0.8) K/uL Eos # (Auto) (0.0-0.7) K/uL Baso # (Auto) (0.0-0.1) K/uL Nucleated RBC % /100WBC Nucleated RBCs # K/uL Sodium (136-145) mmol/L Potassium (3.5-5.1) mmol/L Chloride (98-107) mmol/L Carbon Dioxide (21.0-32.0) mmol/L BUN (7.0-18.0) mg/dL Creatinine (0.6-1.0) mg/dL Est Cr Clr Drug Dosing mL/min Estimated GFR (MDRD) ml/min Glucose (74-106) mg/dL POC Glucose 59 L 133 H 140 H (60-110) mg/dL Calcium (8.5-10.1) mg/dL Magnesium (1.8-2.4) mg/dL Total Bilirubin (0.2-1.0) mg/dL AST (15-37) IU/L ALT (14-63) IU/L Alkaline Phosphatase (46-116) U/L Total Protein (6.4-8.2) g/dL Albumin (3.4-5.0) g/dL Globulin (2.6-4.0) g/dL Albumin/Globulin Ratio (0.9-1.6) Vancomycin Trough (5.0-10.0) ug/mL 04/19/20 04/19/20 04/19/20 Range/Units 05:29 07:40 07:40 WBC 4.77 (4.0-11.0) K/uL RBC 3.47 L (4.30-5.90) M/uL Hgb 9.3 L (12.0-16.0) g/dL Hct 30.0 L (36.0-46.0) % MCV 86.5 (80.0-98.0) fL MCH 26.8 L (27.0-32.0) pg MCHC 31.0 (31.0-37.0) g/dL RDW Std Deviation 46.3 (28.0-62.0) fl RDW Coeff of Speedy 15 (11.0-15.0) % Plt Count 158 (150-400) K/uL MPV 10.00 (7.40-12.00) fL Neut % (Auto) 75.1 (48.0-80.0) % Lymph % (Auto) 10.5 L (16.0-40.0) % Whiteside % (Auto) 13.2 (0.0-15.0) % Eos % (Auto) 1.0 (0.0-7.0) % Baso % (Auto) 0.2 (0.0-1.5) % Neut # (Auto) 3.6 (1.4-5.7) K/uL Lymph # (Auto) 0.5 L (0.6-2.4) K/uL Whiteside # (Auto) 0.6 (0.0-0.8) K/uL Eos # (Auto) 0.1 (0.0-0.7) K/uL Baso # (Auto) 0.0 (0.0-0.1) K/uL Nucleated RBC % 0.0 /100WBC Nucleated RBCs # 0 K/uL Sodium (136-145) mmol/L Potassium (3.5-5.1) mmol/L Chloride (98-107) mmol/L Carbon Dioxide (21.0-32.0) mmol/L BUN (7.0-18.0) mg/dL Creatinine (0.6-1.0) mg/dL Est Cr Clr Drug Dosing mL/min Estimated GFR (MDRD) ml/min Glucose (74-106) mg/dL POC Glucose 126 H (60-110) mg/dL Calcium (8.5-10.1) mg/dL Magnesium (1.8-2.4) mg/dL Total Bilirubin (0.2-1.0) mg/dL AST (15-37) IU/L ALT (14-63) IU/L Alkaline Phosphatase (46-116) U/L Total Protein (6.4-8.2) g/dL Albumin (3.4-5.0) g/dL Globulin (2.6-4.0) g/dL Albumin/Globulin Ratio (0.9-1.6) Vancomycin Trough 28.2 H (5.0-10.0) ug/mL 04/19/20 04/19/20 Range/Units 07:40 12:53 WBC (4.0-11.0) K/uL RBC (4.30-5.90) M/uL Hgb (12.0-16.0) g/dL Hct (36.0-46.0) % MCV (80.0-98.0) fL MCH (27.0-32.0) pg MCHC (31.0-37.0) g/dL RDW Std Deviation (28.0-62.0) fl RDW Coeff of Speedy (11.0-15.0) % Plt Count (150-400) K/uL MPV (7.40-12.00) fL Neut % (Auto) (48.0-80.0) % Lymph % (Auto) (16.0-40.0) % Whiteside % (Auto) (0.0-15.0) % Eos % (Auto) (0.0-7.0) % Baso % (Auto) (0.0-1.5) % Neut # (Auto) (1.4-5.7) K/uL Lymph # (Auto) (0.6-2.4) K/uL Whiteside # (Auto) (0.0-0.8) K/uL Eos # (Auto) (0.0-0.7) K/uL Baso # (Auto) (0.0-0.1) K/uL Nucleated RBC % /100WBC Nucleated RBCs # K/uL Sodium 138 (136-145) mmol/L Potassium 4.4 (3.5-5.1) mmol/L Chloride 105 (98-107) mmol/L Carbon Dioxide 25.4 (21.0-32.0) mmol/L BUN 11 (7.0-18.0) mg/dL Creatinine 0.8 (0.6-1.0) mg/dL Est Cr Clr Drug Dosing 87.70 mL/min Estimated GFR (MDRD) > 60.0 ml/min Glucose 133 H (74-106) mg/dL POC Glucose 165 H (60-110) mg/dL Calcium 8.1 L (8.5-10.1) mg/dL Magnesium 1.9 (1.8-2.4) mg/dL Total Bilirubin 0.5 (0.2-1.0) mg/dL AST 15 (15-37) IU/L ALT 23 (14-63) IU/L Alkaline Phosphatase 84 (46-116) U/L Total Protein 6.7 (6.4-8.2) g/dL Albumin 2.2 L (3.4-5.0) g/dL Globulin 4.5 H (2.6-4.0) g/dL Albumin/Globulin Ratio 0.5 L (0.9-1.6) Vancomycin Trough (5.0-10.0) ug/mL Ramos Results Last 24 Hours: Microbiology 04/15/20 22:25 Urine Culture - Final Urine, Clean Catch MIXED NAHOMI <1000 CFU/ML 04/15/20 15:53 Aerobic Blood Culture - Preliminary Blood - Venous - Lab Draw NO GROWTH AFTER 3 DAYS Anaerobic Blood Culture - Preliminary NO GROWTH AFTER 3 DAYS 04/15/20 15:32 Aerobic Blood Culture - Preliminary Blood - Venous NO GROWTH AFTER 3 DAYS Anaerobic Blood Culture - Preliminary NO GROWTH AFTER 3 DAYS Med Orders - Current: Current Medications Acetaminophen (Tylenol) 650 mg PO Q4H PRN PRN Reason: Pain (Mild 1-3)/fever Last Admin: 04/18/20 11:43 Dose: 650 mg Documented by: Albuterol/Ipratropium (Duoneb 3.0-0.5 Mg/3 Ml) 3 ml NEB Q4HRRT PRN PRN Reason: Shortness Of Breath/wheezing Last Admin: 04/19/20 06:32 Dose: 3 ml Documented by: Albuterol/Ipratropium (Combivent Respimat) 0 gm INH Q4H PRN PRN Reason: Dyspnea/wheezing Ascorbic Acid (Vitamin C) 250 mg PO BIDMEALS [facility] Last Admin: 04/19/20 09:18 Dose: 250 mg Documented by: Aspirin (Halfprin) 81 mg PO DAILY [facility] Last Admin: 04/19/20 09:24 Dose: 81 mg Documented by: Atorvastatin Calcium (Lipitor) 80 mg PO BEDTIME [facility] Last Admin: 04/18/20 21:10 Dose: 80 mg Documented by: Carvedilol (Coreg) 6.25 mg PO BID [facility] Last Admin: 04/19/20 09:24 Dose: 6.25 mg Documented by: Clopidogrel Bisulfate (Plavix) 75 mg PO DAILY [facility] Last Admin: 04/19/20 09:24 Dose: 75 mg Documented by: Dextrose/Water (Dextrose 50% In Water) 50 ml IV ASDIRECTED PRN PRN Reason: Hypoglycemia Docusate Sodium (Colace) 100 mg PO BID PRN PRN Reason: Constipation Doxycycline Hyclate (Vibramycin) 100 mg PO BID [facility] Last Admin: 04/19/20 09:24 Dose: 100 mg Documented by: Enoxaparin Sodium (Lovenox) 40 mg SUBCUT BID [facility] Last Admin: 04/19/20 09:25 Dose: 40 mg Documented by: Ferrous Sulfate (Ferrous Sulfate) 325 mg PO BIDMEALS [facility] Last Admin: 04/19/20 09:18 Dose: 325 mg Documented by: Fluticasone Propionate (Flovent Hfa 110 Mcg) 0 gm INH BID [facility] Last Admin: 04/19/20 08:49 Dose: 2 puff Documented by: Furosemide (Lasix) 40 mg PO DAILY [facility] Last Admin: 04/19/20 09:25 Dose: 40 mg Documented by: Glucagon (Glucagen) 1 mg IM ASDIRECTED PRN PRN Reason: Hypoglycemia Vancomycin HCl 2 gm/ Premix 400 mls @ 200 mls/hr IV Q24H [facility] Cefepime HCl 2 gm/ Sodium (Chloride) 50 mls @ 100 mls/hr IV Q8H [facility] Insulin Aspart (Novolog) 0 unit SUBCUT TIDAC [facility]; Protocol Last Admin: 04/19/20 12:56 Dose: 1 unit Documented by: Insulin Aspart (Novolog) 20 unit SUBCUT TIDAC [facility] Last Admin: 04/19/20 12:56 Dose: 20 units Documented by: Insulin Glargine (Lantus Solostar) 50 units SUBCUT BEDTIME [facility] Last Admin: 04/18/20 21:21 Dose: 50 units Documented by: Nitroglycerin (Nitrostat) 0.4 mg SL .EVERY 5 MINUTES PRN PRN Reason: Chest Pain Ondansetron HCl (Zofran) 4 mg IVPUSH Q8H PRN PRN Reason: Nausea/Vomiting Last Admin: 04/19/20 09:17 Dose: 4 mg Documented by: Sodium Chloride (Saline Flush) 10 ml FLUSH ASDIRECTED PRN PRN Reason: Keep Vein Open Sodium Chloride (Saline Flush) 2.5 ml FLUSH ASDIRECTED PRN PRN Reason: Keep Vein Open Vancomycin HCl (Pharmacy To Dose - Vancomycin) 1 dose .XX ASDIRECTED DUNIA Discontinued Medications Dextrose/Water (Dextrose 50% In Water) 50 ml IV ASDIRECTED PRN PRN Reason: Hypoglycemia Ferrous Sulfate (Ferrous Sulfate) 325 mg PO BIDMEALS [facility] Glucagon (Glucagen) 1 mg IM ASDIRECTED PRN PRN Reason: Hypoglycemia Cefepime HCl 2 gm/ Premix 50 mls @ 100 mls/hr IV ONETIME ONE Stop: 04/15/20 15:40 Last Admin: 04/15/20 16:26 Dose: 100 mls/hr Documented by: Vancomycin HCl 2 gm/ Premix 400 mls @ 200 mls/hr IV ONETIME ONE Stop: 04/15/20 17:59 Last Admin: 04/15/20 16:25 Dose: 200 mls/hr Documented by: Cefepime HCl 2 gm/ Premix 50 mls @ 100 mls/hr IV Q8H [facility] Cefepime HCl 2 gm/ Premix 50 mls @ 100 mls/hr IV Q8H [facility] Last Admin: 04/19/20 06:45 Dose: 100 mls/hr Documented by: Vancomycin HCl 2 gm/ Premix 400 mls @ 200 mls/hr IV Q12H [facility] Last Admin: 04/16/20 07:15 Dose: 200 mls/hr Documented by: Vancomycin HCl 2 gm/ Premix 400 mls @ 200 mls/hr IV Q12H [facility] Last Admin: 04/17/20 10:32 Dose: Not Given Documented by: Vancomycin HCl 2 gm/ Premix 400 mls @ 200 mls/hr IV Q12H [facility] Last Admin: 04/19/20 12:00 Dose: Not Given Documented by: Magnesium Sulfate (Magnesium Sulfate In Water Premix) 2 gm in 50 mls @ 50 mls/hr IV ONETIME ONE Stop: 04/18/20 13:12 Last Admin: 04/18/20 12:40 Dose: 50 mls/hr Documented by: Influenza Virus Vaccine (Pharmacy To Dose - Influenza Vaccine) 1 each IM ONETIME ONE Stop: 04/15/20 22:33 Influenza Virus Vaccine (Afluria Quad 2020-21 (3yr Up)) 60 mcg IM .ONCE ONE Stop: 04/16/20 09:01 Iopamidol (Isovue Multipack-370 (76%)) 80 ml IVPUSH ONETIME STA Stop: 04/15/20 16:53 Last Admin: 04/15/20 16:52 Dose: 80 ml Documented by: Lisinopril (Prinivil) 5 mg PO DAILY [facility] Last Admin: 04/16/20 09:42 Dose: 5 mg Documented by: Sertraline HCl (Zoloft) 200 mg PO DAILY [facility] Last Admin: 04/16/20 09:42 Dose: 200 mg Documented by: Vancomycin HCl (Vancomycin) 2,250 mg IV STAT STA Stop: 04/15/20 15:18 Last Admin: 04/15/20 16:26 Dose: Not Given Documented by: - Exam General: Alert, Oriented Lungs: Clear to Auscultation Cardiovascular: Regular Rate, Regular Rhythm GI/Abdominal Exam: Normal Bowel Sounds, Soft, Non-Tender Psy/Mental Status: Alert Sepsis Event Note - Evaluation Sepsis Screening Result: No Definite Risk - Focused Exam Vital Signs: Vital Signs Temp Pulse Pulse Resp BP BP BP 04/19/20 12:00 97.7 F 83 18 131/75 04/19/20 09:24 92 152/85 H 04/19/20 08:00 98.2 F 84 18 152/85 H 04/19/20 04:00 04/19/20 03:53 97.3 F 84 18 128/70 Pulse Ox Pulse Ox 04/19/20 12:00 92 L 04/19/20 09:24 04/19/20 08:00 89 L 04/19/20 04:00 95 04/19/20 03:53 95 - Problem List & Annotations (1) Healthcare-associated pneumonia SNOMED Code(s): 818866832, 359282888 Code(s): J18.9 - PNEUMONIA, UNSPECIFIED ORGANISM Status: Acute Current Visit: Yes (2) Hypoxia SNOMED Code(s): 964375691 Code(s): R09.02 - HYPOXEMIA Status: Acute Current Visit: Yes (3) Syncope SNOMED Code(s): 714518365 Code(s): R55 - SYNCOPE AND COLLAPSE Status: Acute Current Visit: Yes Qualifiers: Syncope type: unspecified Qualified Code(s): R55 - Syncope and collapse (4) Acute coronary syndrome SNOMED Code(s): 237797327 Code(s): I24.9 - ACUTE ISCHEMIC HEART DISEASE, UNSPECIFIED Status: Acute Current Visit: No (5) Acute respiratory failure with hypoxia SNOMED Code(s): 06854508, 116862736 Code(s): J96.01 - ACUTE RESPIRATORY FAILURE WITH HYPOXIA Status: Acute Current Visit: Yes (6) COVID-19 SNOMED Code(s): 871223684 Code(s): U07.1 - COVID-19 Status: Acute Current Visit: No (7) History of CVA (cerebrovascular accident) SNOMED Code(s): 209392952 Code(s): Z86.73 - PRSNL HX OF TIA (TIA), AND CEREB INFRC W/O RESID DEFICITS Status: Acute Current Visit: No (8) Orthostatic hypotension SNOMED Code(s): 44433016 Code(s): I95.1 - ORTHOSTATIC HYPOTENSION Status: Acute Current Visit: Yes (9) DM type 2 (diabetes mellitus, type 2) SNOMED Code(s): 27330080 Code(s): E11.9 - TYPE 2 DIABETES MELLITUS WITHOUT COMPLICATIONS Status: Chronic Current Visit: Yes Qualifiers: Diabetes mellitus skilled nursing insulin use: with skilled nursing use Diabetes mellitus complication status: with hyperglycemia Qualified Code(s): E11.65 - Type 2 diabetes mellitus with hyperglycemia; 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 (10) HLD (hyperlipidemia) SNOMED Code(s): 13603970 Code(s): E78.5 - HYPERLIPIDEMIA, UNSPECIFIED Status: Chronic Current Visit: No (11) HTN (hypertension) SNOMED Code(s): 46870384 Code(s): I10 - ESSENTIAL (PRIMARY) HYPERTENSION Status: Chronic Current Visit: Yes (12) Obesity SNOMED Code(s): 594557539, 168898052 Code(s): E66.9 - OBESITY, UNSPECIFIED Status: Chronic Current Visit: Yes Qualifiers: Serious obesity comorbidity presence: with serious comorbidity (13) Sarcoidosis of lung SNOMED Code(s): 70063458 Code(s): D86.0 - SARCOIDOSIS OF LUNG Status: Chronic Current Visit: Yes (14) Anemia SNOMED Code(s): 889519048 Code(s): D64.9 - ANEMIA, UNSPECIFIED Status: Acute Current Visit: Yes - Problem List Review Problem List Initiated/Reviewed/Updated: Yes - My Orders Last 24 Hours: My Active Orders 04/18/20 21:00 Ascorbic Acid [Vitamin C] 250 mg PO BIDMEALS Ferrous Sulfate 325 mg PO BIDMEALS - Plan Plan:: Acute on chronic hypoxic respiratory failure secondary to pneumonia, possibly HAP- IV vancomycin, cefepime, doxycycline po, duo-nebs, incentive spirometry, check and replete electrolytes as needed, oxygen support as needed, Lovenox 40 twice daily, SSI, orthostatic vitals. AnemiaHgb 9.3, Occult blood stool NEGATIVE. Iron studies consistent with anemia of chronic disease, Started Ferrous 325mg BID with Vit C 250mg BID. Diabetesinsulin sliding scale, NovoLog 20units 3 times daily AC, diabetic diet CADPlavix, Coreg twice daily, Lasix 40mg qd Attempting to contact pulmonology group at [facility]. Patients records and images have been sent to pulmonology clinic. Will attempt to reach provider to obtain an urgent appointment.
[2020-04-19] MEDS ORDERED: Cefepime 2 GM in Sodium Chloride 0.9% 50 ML IV SCH (15:30)
--- NOTE | 2020-04-19 15:39 | PCM.DCSUM1 ---
<Trevor Crawford - Last Filed: 04/19/20 16:12> Discharge Summary - Hospital Course Free Text/Narrative:: 49 year-old female admitted for acute on chronic hypoxic respiratory failure, with a known history of COVID-19 infection requiring 2 L of oxygen at rest. This is patents 3rd hospital admission in the past 6 months due to acute on chronic hypoxic respiratory failure. Patient has a past medical history to include CAD with 2 stents on Plavix, heart failure, sleep apnea, fibromyalgia, sarcoidosis, diabetes type 2. On admission patient was noted to have anemia of chronic disease. Patient was positive for COVID-19 on March 23, 2020. Patient states that she was on the bathroom this afternoon when she passed out having a bowel movement. Patient states that she did hit her head and left shoulder. Patient noted to be hypoxic during ED admission, per documentation 88% O2 saturation on 4 L which was increased to 6 L. Patient had a previous admission and was discharged home from the medical floor on April 08 for acute hypoxic respiratory failure secondary to COVID-19 infection. Patient was treated with remdesivir, dexamethasone, IV fluids, IV antibiotics. Patient required roughly 10 L of oxygen N/C for a large period of her prior admission. Ambulation of any kind would cause significant decreases in oxygen saturation, low 80's with dizziness and lightheadedness. Since discharge patient was using roughly 2 L of oxygen at home at rest. Patient states that she has had a bout of orthostatic hypotension previously which she believes was due to very high dosages of blood pressure medications. On this most recent admission 04-15-2020, white blood cell count 3.63, ABG pH 7.4 , troponin negative X1, BNP 94. CTA negative for pulmonary embolism, chest CT impression multiple interstitial groundglass and airspace opacities, Extensive pathology pathologically enlarged mediastinal and hilar lymph nodes seen with improved characterization of a pathologic right ensure infraclavicular lymph node. These could represent reactive changes however a superimposed underlying lymphoproliferative malignancy is not entirely exclude. Shoulder x-ray impression, no displacement fractures or dislocations. Head CT negative, no acute intracranial abnormalities. Cervical spine CT shows no evidence of displaced fractures. Patient has required 3L O2 via nasal cannula and maintaining saturations between 88 to 92% at complete bedrest. With ambulation patient's oxygen saturations have dropped to as low as 70-72% on 3 L of oxygen repeatedly. This is the patient's third admission for acute on chronic hypoxic respiratory failure. Patient has not seen a whanau support worker to have her respiratory issues and sarcoidosis evaluated. Patient is being transferred to [facility] for full pulmonology work-up with possible bronchoscopy. - Discharge Data Discharge Date: 04/19/20 Discharge Disposition: DC/Tfer to [facility] Condition: Fair - Referral to Home Health Primary Care Physician: Rachel Koch MD - Discharge Diagnosis/Problem(s) (1) Healthcare-associated pneumonia SNOMED Code(s): 229316742, 282640702 ICD Code: J18.9 - PNEUMONIA, UNSPECIFIED ORGANISM Status: Acute (2) Hypoxia SNOMED Code(s): 296444072 ICD Code: R09.02 - HYPOXEMIA Status: Acute (3) Syncope SNOMED Code(s): 007146077 ICD Code: R55 - SYNCOPE AND COLLAPSE Status: Acute Qualifiers: Syncope type: unspecified Qualified Code(s): R55 - Syncope and collapse (4) Acute coronary syndrome SNOMED Code(s): 170308676 ICD Code: I24.9 - ACUTE ISCHEMIC HEART DISEASE, UNSPECIFIED Status: Acute (5) Acute respiratory failure with hypoxia SNOMED Code(s): 28061111, 036628014 ICD Code: J96.01 - ACUTE RESPIRATORY FAILURE WITH HYPOXIA Status: Acute (6) COVID-19 SNOMED Code(s): 807534605 ICD Code: U07.1 - COVID-19 Status: Acute (7) History of CVA (cerebrovascular accident) SNOMED Code(s): 800563727 ICD Code: Z86.73 - PRSNL HX OF TIA (TIA), AND CEREB INFRC W/O RESID DEFICITS Status: Acute (8) Orthostatic hypotension SNOMED Code(s): 23834053 ICD Code: I95.1 - ORTHOSTATIC HYPOTENSION Status: Acute (9) DM type 2 (diabetes mellitus, type 2) SNOMED Code(s): 74851310 ICD Code: E11.9 - TYPE 2 DIABETES MELLITUS WITHOUT COMPLICATIONS Status: Chronic Qualifiers: Diabetes mellitus terminal carman insulin use: with terminal carman use Diabetes mellitus complication status: with hyperglycemia Qualified Code(s): E11.65 - Type 2 diabetes mellitus with hyperglycemia; 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 (10) HLD (hyperlipidemia) SNOMED Code(s): 05091705 ICD Code: E78.5 - HYPERLIPIDEMIA, UNSPECIFIED Status: Chronic (11) HTN (hypertension) SNOMED Code(s): 48054779 ICD Code: I10 - ESSENTIAL (PRIMARY) HYPERTENSION Status: Chronic (12) Obesity SNOMED Code(s): 703558957, 940055605 ICD Code: E66.9 - OBESITY, UNSPECIFIED Status: Chronic Qualifiers: Serious obesity comorbidity presence: with serious comorbidity (13) Sarcoidosis of lung SNOMED Code(s): 18410777 ICD Code: D86.0 - SARCOIDOSIS OF LUNG Status: Chronic (14) Anemia SNOMED Code(s): 121238158 ICD Code: D64.9 - ANEMIA, UNSPECIFIED Status: Acute - Patient Summary/Data Consults: Consultations 04/17/20 10:58 PT Evaluation and Treatment [CONS] Routine - Discharge Plan *PRESCRIPTION DRUG MONITORING PROGRAM REVIEWED*: Not Applicable *COPY OF PRESCRIPTION DRUG MONITORING REPORT IN PATIENT YIN: Not Applicable Home Medications: Home Meds Aspirin 81 mg PO DAILY tab.chew 09/08/18 [Rx] Insulin Aspart [NovoLOG] See Protocol SUBCUT TIDAC #1 box 09/08/18 [Rx] Pen Needle, Diabetic [Pen Needle] 1 each MC QID #1 box 09/08/18 [Rx] atorvaSTATin [Lipitor] 80 mg PO BEDTIME #60 tablet 09/08/18 [Rx] Insulin Degludec [Tresiba] 56 unit SQ BEDTIME 03/12/20 [History] Clopidogrel [Plavix] 75 mg PO DAILY 03/13/20 [History] Fluticasone Propionate [Flovent HFA 110 MCG] 2 inh IH BID 03/13/20 [History] Nitroglycerin 0.4 mg SL .EVERY 5 MINUTES PRN 03/13/20 [History] Potassium Chloride [Klor-Con M20] 20 meq PO BID 03/13/20 [History] Albuterol/Ipratropium [Combivent Respimat] 1 puff INH Q4H PRN inhaler 03/17/20 [Rx] Benzonatate [Tessalon Perle] 200 mg PO TID PRN #30 capsule 03/17/20 [Rx] Pantoprazole Sodium [Protonix] 20 mg PO DAILY #30 tablet. 03/17/20 [Rx] Acetaminophen [Tylenol] 650 mg PO Q4H PRN tablet 04/08/20 [Rx] Aloe Vera/Sodium Chloride [Sellers Saline Nasal Gel] 1 applic EZE Q2H PRN #1 tube 04/08/20 [Rx] Furosemide 40 mg PO DAILY #0 04/08/20 [Rx] Furosemide [Lasix] 40 mg PO DAILY tablet 04/08/20 [Rx] carvediloL [Coreg] 6.25 mg PO BID #60 tablet 04/08/20 [Rx] Furosemide 40 mg PO DAILY PRN 04/16/20 [History] Ascorbic Acid [Vitamin C] 250 mg PO BIDMEALS tablet 04/19/20 [Rx] Ferrous Sulfate 325 mg PO BIDMEALS tablet 04/19/20 [Rx] Patient Handouts: Hypoxemia, Community-Acquired Pneumonia, Adult, [id number] Referrals: Jayleen Haddad MD [Physician] - 05/15/20 2:00 pm Zulema Martinez NP [Nurse Practitioner] - 04/21/20 2:00 pm - Discharge Summary/Plan Comment DC Time >30 min.: Yes - General Info Date of Service: 04/19/20 Subjective Update: Patient states increasing shortness of breath with any ambulation. Denies shortness of breath at bedrest. Denies chest pain, fever, chills, nausea, vomiting, abdominal pain. - Review of Systems General: Denies: Fever, Chills Pulmonary: Reports: Shortness of Breath. Denies: Cough Cardiovascular: Reports: Dyspnea on Exertion. Denies: Chest Pain, Palpitations Gastrointestinal: Denies: Abdominal Pain, Nausea, Vomiting Neurological: Denies: Confusion, Dizziness, Headache Psychiatric: Denies: Confusion - Patient Data Vitals - Most Recent: Last Vital Signs Temp 207.1 F H 04/19/20 15:02 Pulse 87 04/19/20 15:02 Resp 18 04/19/20 15:02 BP 140/79 04/19/20 15:02 Pulse Ox 96 04/19/20 15:02 Orthostatic Blood Pressure [ 130/79 Standing] Orthostatic Blood Pressure [ 111/63 Sitting] Orthostatic Blood Pressure [ 140/79 Supine] Weight - Most Recent: 143.108 kg I&O - Last 24 hours: Intake & Output 04/19/20 04/19/20 04/19/20 06:59 14:59 22:59 Intake Total 950 Output Total 950 Balance 0 Lab Results - Last 24 hrs: Laboratory Results - last 24 hr 04/18/20 04/18/20 04/18/20 Range/Units 17:20 18:45 21:18 WBC (4.0-11.0) K/uL RBC (4.30-5.90) M/uL Hgb (12.0-16.0) g/dL Hct (36.0-46.0) % MCV (80.0-98.0) fL MCH (27.0-32.0) pg MCHC (31.0-37.0) g/dL RDW Std Deviation (28.0-62.0) fl RDW Coeff of Speedy (11.0-15.0) % Plt Count (150-400) K/uL MPV (7.40-12.00) fL Neut % (Auto) (48.0-80.0) % Lymph % (Auto) (16.0-40.0) % Leslie % (Auto) (0.0-15.0) % Eos % (Auto) (0.0-7.0) % Baso % (Auto) (0.0-1.5) % Neut # (Auto) (1.4-5.7) K/uL Lymph # (Auto) (0.6-2.4) K/uL Leslie # (Auto) (0.0-0.8) K/uL Eos # (Auto) (0.0-0.7) K/uL Baso # (Auto) (0.0-0.1) K/uL Nucleated RBC % /100WBC Nucleated RBCs # K/uL Sodium (136-145) mmol/L Potassium (3.5-5.1) mmol/L Chloride (98-107) mmol/L Carbon Dioxide (21.0-32.0) mmol/L BUN (7.0-18.0) mg/dL Creatinine (0.6-1.0) mg/dL Est Cr Clr Drug Dosing mL/min Estimated GFR (MDRD) ml/min Glucose (74-106) mg/dL POC Glucose 59 L 133 H 140 H (60-110) mg/dL Calcium (8.5-10.1) mg/dL Magnesium (1.8-2.4) mg/dL Total Bilirubin (0.2-1.0) mg/dL AST (15-37) IU/L ALT (14-63) IU/L Alkaline Phosphatase (46-116) U/L Total Protein (6.4-8.2) g/dL Albumin (3.4-5.0) g/dL Globulin (2.6-4.0) g/dL Albumin/Globulin Ratio (0.9-1.6) Vancomycin Trough (5.0-10.0) ug/mL 04/19/20 04/19/20 04/19/20 Range/Units 05:29 07:40 07:40 WBC 4.77 (4.0-11.0) K/uL RBC 3.47 L (4.30-5.90) M/uL Hgb 9.3 L (12.0-16.0) g/dL Hct 30.0 L (36.0-46.0) % MCV 86.5 (80.0-98.0) fL MCH 26.8 L (27.0-32.0) pg MCHC 31.0 (31.0-37.0) g/dL RDW Std Deviation 46.3 (28.0-62.0) fl RDW Coeff of Speedy 15 (11.0-15.0) % Plt Count 158 (150-400) K/uL MPV 10.00 (7.40-12.00) fL Neut % (Auto) 75.1 (48.0-80.0) % Lymph % (Auto) 10.5 L (16.0-40.0) % Leslie % (Auto) 13.2 (0.0-15.0) % Eos % (Auto) 1.0 (0.0-7.0) % Baso % (Auto) 0.2 (0.0-1.5) % Neut # (Auto) 3.6 (1.4-5.7) K/uL Lymph # (Auto) 0.5 L (0.6-2.4) K/uL Leslie # (Auto) 0.6 (0.0-0.8) K/uL Eos # (Auto) 0.1 (0.0-0.7) K/uL Baso # (Auto) 0.0 (0.0-0.1) K/uL Nucleated RBC % 0.0 /100WBC Nucleated RBCs # 0 K/uL Sodium (136-145) mmol/L Potassium (3.5-5.1) mmol/L Chloride (98-107) mmol/L Carbon Dioxide (21.0-32.0) mmol/L BUN (7.0-18.0) mg/dL Creatinine (0.6-1.0) mg/dL Est Cr Clr Drug Dosing mL/min Estimated GFR (MDRD) ml/min Glucose (74-106) mg/dL POC Glucose 126 H (60-110) mg/dL Calcium (8.5-10.1) mg/dL Magnesium (1.8-2.4) mg/dL Total Bilirubin (0.2-1.0) mg/dL AST (15-37) IU/L ALT (14-63) IU/L Alkaline Phosphatase (46-116) U/L Total Protein (6.4-8.2) g/dL Albumin (3.4-5.0) g/dL Globulin (2.6-4.0) g/dL Albumin/Globulin Ratio (0.9-1.6) Vancomycin Trough 28.2 H (5.0-10.0) ug/mL 04/19/20 04/19/20 Range/Units 07:40 12:53 WBC (4.0-11.0) K/uL RBC (4.30-5.90) M/uL Hgb (12.0-16.0) g/dL Hct (36.0-46.0) % MCV (80.0-98.0) fL MCH (27.0-32.0) pg MCHC (31.0-37.0) g/dL RDW Std Deviation (28.0-62.0) fl RDW Coeff of Speedy (11.0-15.0) % Plt Count (150-400) K/uL MPV (7.40-12.00) fL Neut % (Auto) (48.0-80.0) % Lymph % (Auto) (16.0-40.0) % Leslie % (Auto) (0.0-15.0) % Eos % (Auto) (0.0-7.0) % Baso % (Auto) (0.0-1.5) % Neut # (Auto) (1.4-5.7) K/uL Lymph # (Auto) (0.6-2.4) K/uL Leslie # (Auto) (0.0-0.8) K/uL Eos # (Auto) (0.0-0.7) K/uL Baso # (Auto) (0.0-0.1) K/uL Nucleated RBC % /100WBC Nucleated RBCs # K/uL Sodium 138 (136-145) mmol/L Potassium 4.4 (3.5-5.1) mmol/L Chloride 105 (98-107) mmol/L Carbon Dioxide 25.4 (21.0-32.0) mmol/L BUN 11 (7.0-18.0) mg/dL Creatinine 0.8 (0.6-1.0) mg/dL Est Cr Clr Drug Dosing 87.70 mL/min Estimated GFR (MDRD) > 60.0 ml/min Glucose 133 H (74-106) mg/dL POC Glucose 165 H (60-110) mg/dL Calcium 8.1 L (8.5-10.1) mg/dL Magnesium 1.9 (1.8-2.4) mg/dL Total Bilirubin 0.5 (0.2-1.0) mg/dL AST 15 (15-37) IU/L ALT 23 (14-63) IU/L Alkaline Phosphatase 84 (46-116) U/L Total Protein 6.7 (6.4-8.2) g/dL Albumin 2.2 L (3.4-5.0) g/dL Globulin 4.5 H (2.6-4.0) g/dL Albumin/Globulin Ratio 0.5 L (0.9-1.6) Vancomycin Trough (5.0-10.0) ug/mL SCAR Results - Last 24 hrs: Microbiology 04/15/20 22:25 Urine Culture - Final Urine, Clean Catch MIXED NAHOMI <1000 CFU/ML 04/15/20 15:53 Aerobic Blood Culture - Preliminary Blood - Venous - Lab Draw NO GROWTH AFTER 3 DAYS Anaerobic Blood Culture - Preliminary NO GROWTH AFTER 3 DAYS 04/15/20 15:32 Aerobic Blood Culture - Preliminary Blood - Venous NO GROWTH AFTER 3 DAYS Anaerobic Blood Culture - Preliminary NO GROWTH AFTER 3 DAYS Med Orders - Current: Current Medications Acetaminophen (Tylenol) 650 mg PO Q4H PRN PRN Reason: Pain (Mild 1-3)/fever Last Admin: 04/18/20 11:43 Dose: 650 mg Documented by: Albuterol/Ipratropium (Duoneb 3.0-0.5 Mg/3 Ml) 3 ml NEB Q4HRRT PRN PRN Reason: Shortness Of Breath/wheezing Last Admin: 04/19/20 06:32 Dose: 3 ml Documented by: Albuterol/Ipratropium (Combivent Respimat) 0 gm INH Q4H PRN PRN Reason: Dyspnea/wheezing Ascorbic Acid (Vitamin C) 250 mg PO BIDMEALS [facility] Last Admin: 04/19/20 09:18 Dose: 250 mg Documented by: Aspirin (Halfprin) 81 mg PO DAILY [facility] Last Admin: 04/19/20 09:24 Dose: 81 mg Documented by: Atorvastatin Calcium (Lipitor) 80 mg PO BEDTIME [facility] Last Admin: 04/18/20 21:10 Dose: 80 mg Documented by: Carvedilol (Coreg) 6.25 mg PO BID [facility] Last Admin: 04/19/20 09:24 Dose: 6.25 mg Documented by: Clopidogrel Bisulfate (Plavix) 75 mg PO DAILY [facility] Last Admin: 04/19/20 09:24 Dose: 75 mg Documented by: Dextrose/Water (Dextrose 50% In Water) 50 ml IV ASDIRECTED PRN PRN Reason: Hypoglycemia Docusate Sodium (Colace) 100 mg PO BID PRN PRN Reason: Constipation Doxycycline Hyclate (Vibramycin) 100 mg PO BID [facility] Last Admin: 04/19/20 09:24 Dose: 100 mg Documented by: Enoxaparin Sodium (Lovenox) 40 mg SUBCUT BID [facility] Last Admin: 04/19/20 09:25 Dose: 40 mg Documented by: Ferrous Sulfate (Ferrous Sulfate) 325 mg PO BIDMEALS [facility] Last Admin: 04/19/20 09:18 Dose: 325 mg Documented by: Fluticasone Propionate (Flovent Hfa 110 Mcg) 0 gm INH BID [facility] Last Admin: 04/19/20 08:49 Dose: 2 puff Documented by: Furosemide (Lasix) 40 mg PO DAILY [facility] Last Admin: 04/19/20 09:25 Dose: 40 mg Documented by: Glucagon (Glucagen) 1 mg IM ASDIRECTED PRN PRN Reason: Hypoglycemia Vancomycin HCl 2 gm/ Premix 400 mls @ 200 mls/hr IV Q24H [facility] Cefepime HCl 2 gm/ Sodium (Chloride) 50 mls @ 100 mls/hr IV Q8H [facility] Last Admin: 04/19/20 14:55 Dose: 100 mls/hr Documented by: Insulin Aspart (Novolog) 0 unit SUBCUT TIDAC [facility]; Protocol Last Admin: 04/19/20 12:56 Dose: 1 unit Documented by: Insulin Aspart (Novolog) 20 unit SUBCUT TIDAC [facility] Last Admin: 04/19/20 12:56 Dose: 20 units Documented by: Insulin Glargine (Lantus Solostar) 50 units SUBCUT BEDTIME [facility] Last Admin: 04/18/20 21:21 Dose: 50 units Documented by: Nitroglycerin (Nitrostat) 0.4 mg SL .EVERY 5 MINUTES PRN PRN Reason: Chest Pain Ondansetron HCl (Zofran) 4 mg IVPUSH Q8H PRN PRN Reason: Nausea/Vomiting Last Admin: 04/19/20 09:17 Dose: 4 mg Documented by: Sodium Chloride (Saline Flush) 10 ml FLUSH ASDIRECTED PRN PRN Reason: Keep Vein Open Sodium Chloride (Saline Flush) 2.5 ml FLUSH ASDIRECTED PRN PRN Reason: Keep Vein Open Vancomycin HCl (Pharmacy To Dose - Vancomycin) 1 dose .XX ASDIRECTED [facility] Discontinued Medications Dextrose/Water (Dextrose 50% In Water) 50 ml IV ASDIRECTED PRN PRN Reason: Hypoglycemia Ferrous Sulfate (Ferrous Sulfate) 325 mg PO BIDMEALS [facility] Glucagon (Glucagen) 1 mg IM ASDIRECTED PRN PRN Reason: Hypoglycemia Cefepime HCl 2 gm/ Premix 50 mls @ 100 mls/hr IV ONETIME ONE Stop: 04/15/20 15:40 Last Admin: 04/15/20 16:26 Dose: 100 mls/hr Documented by: Vancomycin HCl 2 gm/ Premix 400 mls @ 200 mls/hr IV ONETIME ONE Stop: 04/15/20 17:59 Last Admin: 04/15/20 16:25 Dose: 200 mls/hr Documented by: Cefepime HCl 2 gm/ Premix 50 mls @ 100 mls/hr IV Q8H [facility] Cefepime HCl 2 gm/ Premix 50 mls @ 100 mls/hr IV Q8H [facility] Last Admin: 04/19/20 06:45 Dose: 100 mls/hr Documented by: Vancomycin HCl 2 gm/ Premix 400 mls @ 200 mls/hr IV Q12H [facility] Last Admin: 04/16/20 07:15 Dose: 200 mls/hr Documented by: Vancomycin HCl 2 gm/ Premix 400 mls @ 200 mls/hr IV Q12H [facility] Last Admin: 04/17/20 10:32 Dose: Not Given Documented by: Vancomycin HCl 2 gm/ Premix 400 mls @ 200 mls/hr IV Q12H [facility] Last Admin: 04/19/20 12:00 Dose: Not Given Documented by: Magnesium Sulfate (Magnesium Sulfate In Water Premix) 2 gm in 50 mls @ 50 mls/hr IV ONETIME ONE Stop: 04/18/20 13:12 Last Admin: 04/18/20 12:40 Dose: 50 mls/hr Documented by: Influenza Virus Vaccine (Pharmacy To Dose - Influenza Vaccine) 1 each IM ONETIME ONE Stop: 04/15/20 22:33 Influenza Virus Vaccine (Afluria Quad 2020-21 (3yr Up)) 60 mcg IM .ONCE ONE Stop: 04/16/20 09:01 Iopamidol (Isovue Multipack-370 (76%)) 80 ml IVPUSH ONETIME STA Stop: 04/15/20 16:53 Last Admin: 04/15/20 16:52 Dose: 80 ml Documented by: Lisinopril (Prinivil) 5 mg PO DAILY [facility] Last Admin: 04/16/20 09:42 Dose: 5 mg Documented by: Sertraline HCl (Zoloft) 200 mg PO DAILY [facility] Last Admin: 04/16/20 09:42 Dose: 200 mg Documented by: Vancomycin HCl (Vancomycin) 2,250 mg IV STAT STA Stop: 04/15/20 15:18 Last Admin: 04/15/20 16:26 Dose: Not Given Documented by: - Exam Quality Assessment: Reports: Supplemental Oxygen (3-5L O2, NC) General: Reports: Alert, Oriented Lungs: Reports: Clear to Auscultation. Denies: Crackles Cardiovascular: Reports: Regular Rate, Regular Rhythm GI/Abdominal Exam: Normal Bowel Sounds, Soft, Non-Tender <Erick Davila - Last Filed: 04/20/20 19:49> Discharge Summary - Referral to Home Health Primary Care Physician: Rachel Koch MD - Patient Summary/Data Consults: Consultations 04/17/20 10:58 PT Evaluation and Treatment [CONS] Routine - Patient Data Vitals - Most Recent: Last Vital Signs Temp 36.6 C 04/19/20 19:00 Pulse 85 04/19/20 19:00 Resp 18 04/19/20 19:00 BP 148/84 H 04/19/20 19:00 Pulse Ox 95 04/19/20 19:00 Orthostatic Blood Pressure [ 131/82 Standing] Orthostatic Blood Pressure [ 114/70 Sitting] Orthostatic Blood Pressure [ 148/84 Supine] SCAR Results - Last 24 hrs: Microbiology 04/15/20 15:53 Aerobic Blood Culture - Final Blood - Venous - Lab Draw NO GROWTH AFTER 5 DAYS Anaerobic Blood Culture - Final NO GROWTH AFTER 5 DAYS 04/15/20 15:32 Aerobic Blood Culture - Final Blood - Venous NO GROWTH AFTER 5 DAYS Anaerobic Blood Culture - Final NO GROWTH AFTER 5 DAYS Med Orders - Current: Current Medications Discontinued Medications Acetaminophen (Tylenol) 650 mg PO Q4H PRN PRN Reason: Pain (Mild 1-3)/fever Last Admin: 04/18/20 11:43 Dose: 650 mg Documented by: Albuterol/Ipratropium (Duoneb 3.0-0.5 Mg/3 Ml) 3 ml NEB Q4HRRT PRN PRN Reason: Shortness Of Breath/wheezing Last Admin: 04/19/20 06:32 Dose: 3 ml Documented by: Albuterol/Ipratropium (Combivent Respimat) 0 gm INH Q4H PRN PRN Reason: Dyspnea/wheezing Ascorbic Acid (Vitamin C) 250 mg PO BIDMEALS [facility] Last Admin: 04/19/20 17:10 Dose: 250 mg Documented by: Aspirin (Halfprin) 81 mg PO DAILY [facility] Last Admin: 04/19/20 09:24 Dose: 81 mg Documented by: Atorvastatin Calcium (Lipitor) 80 mg PO BEDTIME [facility] Last Admin: 04/18/20 21:10 Dose: 80 mg Documented by: Carvedilol (Coreg) 6.25 mg PO BID [facility] Last Admin: 04/19/20 09:24 Dose: 6.25 mg Documented by: Clopidogrel Bisulfate (Plavix) 75 mg PO DAILY [facility] Last Admin: 04/19/20 09:24 Dose: 75 mg Documented by: Dextrose/Water (Dextrose 50% In Water) 50 ml IV ASDIRECTED PRN PRN Reason: Hypoglycemia Dextrose/Water (Dextrose 50% In Water) 50 ml IV ASDIRECTED PRN PRN Reason: Hypoglycemia Docusate Sodium (Colace) 100 mg PO BID PRN PRN Reason: Constipation Doxycycline Hyclate (Vibramycin) 100 mg PO BID [facility] Last Admin: 04/19/20 09:24 Dose: 100 mg Documented by: Enoxaparin Sodium (Lovenox) 40 mg SUBCUT BID [facility] Last Admin: 04/19/20 09:25 Dose: 40 mg Documented by: Ferrous Sulfate (Ferrous Sulfate) 325 mg PO BIDMEALS [facility] Ferrous Sulfate (Ferrous Sulfate) 325 mg PO BIDMEALS [facility] Last Admin: 04/19/20 17:10 Dose: 325 mg Documented by: Fluticasone Propionate (Flovent Hfa 110 Mcg) 0 gm INH BID [facility] Last Admin: 04/19/20 08:49 Dose: 2 puff Documented by: Furosemide (Lasix) 40 mg PO DAILY [facility] Last Admin: 04/19/20 09:25 Dose: 40 mg Documented by: Glucagon (Glucagen) 1 mg IM ASDIRECTED PRN PRN Reason: Hypoglycemia Glucagon (Glucagen) 1 mg IM ASDIRECTED PRN PRN Reason: Hypoglycemia Cefepime HCl 2 gm/ Premix 50 mls @ 100 mls/hr IV ONETIME ONE Stop: 04/15/20 15:40 Last Admin: 04/15/20 16:26 Dose: 100 mls/hr Documented by: Vancomycin HCl 2 gm/ Premix 400 mls @ 200 mls/hr IV ONETIME ONE Stop: 04/15/20 17:59 Last Admin: 04/15/20 16:25 Dose: 200 mls/hr Documented by: Cefepime HCl 2 gm/ Premix 50 mls @ 100 mls/hr IV Q8H [facility] Cefepime HCl 2 gm/ Premix 50 mls @ 100 mls/hr IV Q8H [facility] Last Admin: 04/19/20 06:45 Dose: 100 mls/hr Documented by: Vancomycin HCl 2 gm/ Premix 400 mls @ 200 mls/hr IV Q12H [facility] Last Admin: 04/16/20 07:15 Dose: 200 mls/hr Documented by: Vancomycin HCl 2 gm/ Premix 400 mls @ 200 mls/hr IV Q12H [facility] Last Admin: 04/17/20 10:32 Dose: Not Given Documented by: Vancomycin HCl 2 gm/ Premix 400 mls @ 200 mls/hr IV Q12H [facility] Last Admin: 04/19/20 12:00 Dose: Not Given Documented by: Magnesium Sulfate (Magnesium Sulfate In Water Premix) 2 gm in 50 mls @ 50 mls/hr IV ONETIME ONE Stop: 04/18/20 13:12 Last Admin: 04/18/20 12:40 Dose: 50 mls/hr Documented by: Vancomycin HCl 2 gm/ Premix 400 mls @ 200 mls/hr IV Q24H [facility] Cefepime HCl 2 gm/ Sodium (Chloride) 50 mls @ 100 mls/hr IV Q8H [facility] Last Admin: 04/19/20 14:55 Dose: 100 mls/hr Documented by: Influenza Virus Vaccine (Pharmacy To Dose - Influenza Vaccine) 1 each IM ONETIME ONE Stop: 04/15/20 22:33 Influenza Virus Vaccine (Afluria Quad 2020-21 (3yr Up)) 60 mcg IM .ONCE ONE Stop: 04/16/20 09:01 Insulin Aspart (Novolog) 0 unit SUBCUT TIDAC [facility]; Protocol Last Admin: 04/19/20 17:40 Dose: 1 unit Documented by: Insulin Aspart (Novolog) 20 unit SUBCUT TIDAC [facility] Last Admin: 04/19/20 17:41 Dose: 20 units Documented by: Insulin Glargine (Lantus Solostar) 50 units SUBCUT BEDTIME [facility] Last Admin: 04/18/20 21:21 Dose: 50 units Documented by: Iopamidol (Isovue Multipack-370 (76%)) 80 ml IVPUSH ONETIME STA Stop: 04/15/20 16:53 Last Admin: 04/15/20 16:52 Dose: 80 ml Documented by: Lisinopril (Prinivil) 5 mg PO DAILY [facility] Last Admin: 04/16/20 09:42 Dose: 5 mg Documented by: Nitroglycerin (Nitrostat) 0.4 mg SL .EVERY 5 MINUTES PRN PRN Reason: Chest Pain Ondansetron HCl (Zofran) 4 mg IVPUSH Q8H PRN PRN Reason: Nausea/Vomiting Last Admin: 04/19/20 09:17 Dose: 4 mg Documented by: Sertraline HCl (Zoloft) 200 mg PO DAILY [facility] Last Admin: 04/16/20 09:42 Dose: 200 mg Documented by: Sodium Chloride (Saline Flush) 10 ml FLUSH ASDIRECTED PRN PRN Reason: Keep Vein Open Sodium Chloride (Saline Flush) 2.5 ml FLUSH ASDIRECTED PRN PRN Reason: Keep Vein Open Vancomycin HCl (Vancomycin) 2,250 mg IV STAT STA Stop: 04/15/20 15:18 Last Admin: 04/15/20 16:26 Dose: Not Given Documented by: Vancomycin HCl (Pharmacy To Dose - Vancomycin) 1 dose .XX ASDIRECTED [facility] - Free Text/Narrative Note: I have seen and evaluated the patient. I have discussed findings and treatment plan with resident. I agree with the assessment and plan in the following note.
[2020-04-19 19:52] VITALS: BP 148/84; PULSE 85
[2020-04-19] MEDS ORDERED: Vancomycin/Water for INJ (PEG) 2 GM in Premix Bag 1 BAG IV SCH (21:00)
== END 2020-04-19 19:30 | DRG 137 ==
LOC: MW.ED 13:03 → MW.MS 19:10 → OBSVTOIN 04-16 11:42 → MW.MS 04-16 13:30
PROVIDERS: ADMIT Student in an Organized Health Care Education/Training Program; ATTEND Student in an Organized Health Care Education/Training Program
PROC: 8E0ZXY6 Isolation (ICD-10-PCS; principal; 2020-04-16)
DX: U07.1 COVID-19 (principal); J18.9 Pneumonia, unspecified organism; I24.9 Acute ischemic heart disease, unspecified; I95.1 Orthostatic hypotension; E11.65 Type 2 diabetes mellitus with hyperglycemia; E78.5 Hyperlipidemia, unspecified; E66.9 Obesity, unspecified; D86.0 Sarcoidosis of lung; J96.21 Acute and chronic respiratory failure with hypoxia; I11.0 Hypertensive heart disease with heart failure; I50.9 Heart failure, unspecified; I25.10 Atherosclerotic heart disease of native coronary artery without angina pectoris; E78.00 Pure hypercholesterolemia, unspecified; Z95.5 Presence of coronary angioplasty implant and graft; G47.30 Sleep apnea, unspecified; J45.909 Unspecified asthma, uncomplicated; M79.7 Fibromyalgia; Z86.73 Personal history of transient ischemic attack (TIA), and cerebral infarction without residual deficits; Z79.4 Long term (current) use of insulin; Z90.710 Acquired absence of both cervix and uterus; Z79.82 Long term (current) use of aspirin; Z79.899 Other long term (current) drug therapy
CPT/HCPCS: 36415; 36430; 36600; 70450; 70450-26; 71250; 71250-26; 71275; 71275-26; 72125; 72125-26; 73030-26-LT; 73030-LT; 80053; 80202; 81001; 82272; 82607; 82728; 82746; 82803; 82962; 83550; 83605; 83615; 83735; 83880; 84100; 84145; 84484; 85014; 85018; 85025; 85045; 85379; 85610; 85730; 86140; 86850; 86900; 86901; 86920; 86921; 86922; 87040; 87086; 88104; 93005; 93010; 94640; 96365; 96367; 96372; 96375; 96376; 97110-GP; 97161-GP; 97530-GP; 99283; 99285-25; A9270-GY; G0378; J0692; J1650; J1815-GY; J2405; J3370; J3475; J7050; J7620-GY; P9016; Q9967

== ENCOUNTER 2020-06-04 18:50 | Emergency (ER) | payer BC ==
[2020-06-04] MEDS ORDERED: Sodium Chloride 0.9% 2.5 ML Syringe FLUSH PRN ×2 (19:02→19:03)
[2020-06-04] MEDS ORDERED: Sodium Chloride 0.9% 10 ML Syringe FLUSH PRN ×2 (19:02→19:03)
[2020-06-04] MEDS ORDERED: Sodium Chloride 0.9% 1,000 ML IV ONE (19:03)
[2020-06-04] MEDS ORDERED: Magnesium Sulfate (4.06 MEQ/ML) 1 GM/2 ML SDV IV ONE (19:03)
[2020-06-04] MEDS ORDERED: Amiodarone 360 MG In Dextrose 200 ML IV ONE (19:15)
[2020-06-04] MEDS ORDERED: Amiodarone In Dextrose,Iso-Osm 200 ML IV SCH (19:15)
[2020-06-04 19:50] LABS: BLOOD UREA NITROGEN,BUN 30 mg/dL (7.0-18.0); CARBON DIOXIDE,CO2 18.1 mmol/L (21.0-32.0); CHLORIDE,CL 92 mmol/L (98-107); GLUCOSE RANDOM 454 mg/dL (74-106); POTASSIUM,K 4.4 mmol/L (3.5-5.1); SODIUM,NA 128 mmol/L (136-145)
--- NOTE | 2020-06-04 20:31 | CR ---
INDICATION: Code blue. Endotracheal tube placement Technique : AP portable chest x-ray 03/30/2020 FINDINGS: Opaque density on patient`s skin surface in the right chest and shoulder and obscures detail in the right lung. Moderately prominent diffuse dense opacity and infiltrates in the right lung more prominent than on prior exam. Findings consistent diffuse fairly consolidative infiltrates with relative sparing of the right perihilar lung. Patchy less dense infiltrates in the left lung greatest in the left mid upper lung are slightly more prominent than March of 2020. These bilateral pulmonary infiltrates are of uncertain etiology. The patient is intubated with endotracheal tube distal tip 4-5 cm above the patti. Mild elevation right hemidiaphragm stable. Globular shape of the heart with cardiac silhouette being larger and mildly enlarged. Chest otherwise negative. Dictated by Trae Pisano MD @ Jun 04 2020 8:24PM Signed by Dr. Trae Pisano @ Jun 04 2020 8:29PM
--- NOTE | 2020-06-04 20:44 | PCM.SN.2 ---
- Free Text/Narrative Note: Called to assist code jeremi in the ER. The patient had an ET tube in place. Assisted in vent management. OG tube was placed with minimal gastric contents output less than 10cc. Decision was made to stop CPR by ER provider and family.
[2020-06-04] MEDS ORDERED: EPINEPHrine 1 MG/ML 30 ML MDV IVPUSH ONE ×3 (23:31→23:33)
[2020-06-04] MEDS ORDERED: Atropine 1 MG/ML SDV IVPUSH ONE (23:31)
--- NOTE | 2020-06-05 01:01 | EDM.PDOC ---
ED HPI GENERAL MEDICAL PROBLEM - General Chief Complaint: CPR in Progress Stated Complaint: EMS Time Seen by Provider: 06/04/20 18:50 - History of Present Illness INITIAL COMMENTS - FREE TEXT/NARRATIVE: CHIEF COMPLAINT(S): Cardiac arrest HISTORY OF PRESENT ILLNESS: This is a 49-year-old woman with a complex past medical history including chronic hypoxic respiratory failure on 2 L home oxygen, recent COVID-19 infection CAD status post stents, CHF, sleep apnea, sarcoidosis, diabetes mellitus type 2 and multiple recent admissions for acute on chronic hypoxic respiratory failure who presents to the emergency department as a medical resuscitation via EMS with a chief complaint of cardiac arrest. Per EMS: The patient had an unwitnessed cardiac arrest at home. They stated that when they arrived on scene the patient was agonal he breathing with asystole on the monitor and no pulses. They states that they did multiple rounds of CPR for which 2 rounds of epinephrine were given. After they achieved ROSC multiple times there was sinus bradycardia on the monitor and given 2 rounds of atropine. Blood glucose in route was elevated at 364. They started the patient on normal saline. Total CPR prior to arrival 35 minutes. The they did intubate the patient with equal breath sounds noted bilaterally. REVIEW OF SYSTEMS: Unable to obtain secondary patient clinical condition PAST MEDICAL HISTORY: As per history of present illness and as reviewed below otherwise noncontributory. SURGICAL HISTORY: As per history of present illness and as reviewed below otherwise noncontributory. SOCIAL HISTORY: As per history of present illness and as reviewed below otherwise noncontributory. FAMILY HISTORY: As per history of present illness and as reviewed below otherwise noncontributory. EXAMINATION OF ORGAN SYSTEMS/BODY AREAS: VITALS: Initial blood pressure unobtainable. Heart rate was 73, end-tidal CO2 of 55. Manual blood pressure obtained which was 100/50. GENERAL: Obese woman who is unresponsive. HEAD: Normocephalic, atraumatic. EYES: Pupils are fixed and dilated ENT. External ears WNL. Nares patent.. NECK: Supple, no masses. Trachea is midline. LUNGS: Bilateral rhonchorous breath sounds noted with [id number] ventilation via endotracheal tube. Breath sounds are equal. CARDIOVASCULAR: No pulses on arrival. No edema. No JVD. Ventricular fibrillation on the monitor ABDOMEN: Soft, nondistended. Bowel sounds decreased MUSCULOSKELETAL: No obvious deformity. Left tibial IO in place NEUROLOGICAL: GCS of 3. SKIN: No rashes, or pallor. No signs of injury. MEDICAL DECISION MAKING AND COURSE IN THE ED WITH INTERPRETATION/REVIEW OF DIAGNOSTIC STUDIES: This is a 49-year-old woman with a complex past medical history including chronic hypoxic respiratory failure on 2 L home oxygen, recent COVID-19 infection CAD status post stents, CHF, sleep apnea, sarcoidosis, diabetes mellitus type 2, CKD, and multiple recent admissions for acute on chronic hypoxic respiratory failure who presents to the emergency department as a medical resuscitation via EMS with a chief complaint of cardiac arrest. Immediately upon entering the resuscitation room the patient was disrobed, placed on continuous cardiac monitoring, and IV access was established by nursing. Patient has a GCS of 3 with an endotracheal tube in place. Breath sounds are rhonchorous bilaterally and equal with bag valve mask ventilation and the patient did not have any central pulses that were palpable. trust accounts supervisor revealed fine ventricular fibrillation therefore we did defibrillate the patient at 200 J and began CPR. After IV insertion we did provide the patient with epinephrine and started the patient with 2 g of magnesium IV push and amiodarone. Given history of CKD and history of sinus bradycardia by EMS we did provide with 1 amp of bicarbonate given the possibility of hyperkalemia. The patient then converted into PEA on the monitor and CPR was can continued. After approximately 9 minutes we did obtain ROSC. At this time the patient's blood pressure was normal however we did draw up push dose epinephrine, ordered norepinephrine, and I placed a central line. RN contacted [facility] in [place] and spoke with Dr. Blum who accepted the patient for transfer. [facility] flight crew was contacted with an estimated arrival of 15 minutes. Central Line Procedure Consent was emergent. The indication for central line placement was cardiac arrest, need for vasopressors. The patient was monitored during the entire procedure. Time out was performed. The patient's right groin was prepped and draped in a sterile fashion. Lidocaine was used to anesthetize the area. A needle was entered into the right femoral vein under landmark palpation with return of pulsatile flow. At this time I did provide compression without any active bleeding, a second attempt via landmark palpation did yield nonpulsatile flow guidewire was placed, however after attempted dilation the guidewire kinked and triple lumen catheter was unable to be placed. Therefore using a new central line kit, a needle was entered into the right femoral vein under ultrasound guidance with return of nonpulsatile flow, guidewire was placed, and central line was advanced. Guidewire was removed. All 3 lines easily withdrew blood and were flushed with sterile saline. A Biopatch was placed and the line was secured. Patient tolerated procedure well. During placement of the central line the patient did have an episode of bradycardia therefore we provided atropine IV. We started the patient on a norepinephrine drip. The patient lost pulses and was PEA on the monitor. ACLS was followed. After approximately 5 minutes the patient did achieve ROSC. At this time EKG was obtained which did reveal complete heart block. We did place the pacer pads on the patient's chest and initiated transcutaneous pacer as we do not have capabilities for transvenous pacemaker. X-ray was obtained which did reveal appropriate endotracheal tube position with essentially whiteout of the lungs concerning for either pulmonary hemorrhage secondary to CPR versus pulmonary edema. During the entire visit the patient's pulse oximetry was found to be low anywhere from 50 to 73%. The patient was being given 100% oxygen via [id number] and during moments of ROSC the patient was placed on the ventilator at 100% FiO2 and escalating PEEP. I did perform a bedside ultrasound at this time which did not reveal any cardiac effusion. EF was reduced. No signs of right heart strain. The patient had multiple rounds of CPR with intermittent ROSC. During one of the moments of ROSC the family was brought back to see their family member as I do believe this patient is critical and may not survive the flight. The patient continued to lose pulses despite norepinephrine administration, the patient's pupils were fixed and dilated, and at this point we had been doing CPR for approximately 80 minutes intermittently. I did have a discussion with [facility] and and family members regarding outcome. I do believe any further CPR or intervention given that we have been going for approximately 2 hours with CPR is futile. They did state that at this time if she were to code again that she is DNR. On arrival back into the patient room the patient was bradycardic and was on the ventilator. After approximately 10 to 15 minutes the patient went into asystole with no palpable pulse. The patient was pronounced at 2035. Chest Xray: Chest Xray obtained in the resuscitation bay was interpreted by myself and radiologist. Image showed opaque density on the patient's skin surface in the right chest and shoulder and which obscures the detail in the right lung. There is moderately prominent diffuse dense opacity and infiltrates in right lung more prominent than on prior exam. Findings are consistent with diffuse fairly consolidative infiltrates with relative sparing of the perihilar lung. Patchy less dense infiltrates in the left lung greatest in the left mid upper lung and slightly more prominent than March 2020. These bilaterally pulmonary infiltrates are uncertain etiology. The patient is intubated with endotracheal tube approximately 4 to 5 cm above the patti. There is mild elevation of the right hemidiaphragm which is stable. There is cardiomegaly. Laboratory: CBC reveals a leukocytosis of 16.07 with evidence of demargination. This is likely secondary to stress response secondary to cardiac arrest, the patient has a hemoglobin of 8.1 and hematocrit of 28.1 which is normocytic which is decreased from prior at 12.7 and 39.8, however looking back further it appears that the patient's baseline is around 8-9. Coags are within normal limits. CMP reveals hyponatremia 128, hypochloremia at 92, metabolic acidosis with bicarbonate of 18.1. Acute kidney injury with a BUN of 30 and creatinine of 2.2. Hyperglycemia at 454. Hypocalcemia at 8.4. Mild elevation AST of 52. Mild elevation in alkaline phosphatase at 131. Patient is hypoalbuminemic at 1.8. AB.018/75/95/19 EKG INTERPRETATION Twelve-lead EKG interpreted by me. Complete heart block at a rate of 79 beats per minute. Unknown axis. There are fusion beats. There is complete A-V dissociation. Occasional PVC. This is changed from prior dated 04/15/2020. Interpretation: Complete heart block DISPOSITION: CONDITION: Procedures: Cardiac monitoring interpretation, pulse oximetry interpretation, central line placement FINAL IMPRESSION(S)/DIAGNOSES: 1. Acute cardiac arrest likely secondary to hypoxic respiratory failure versus acute [place] 2. Acute cardiogenic shock 3. Acute leukocytosis likely secondary to acute stress response secondary to cardiac arrest 4. Acute metabolic acidosis likely secondary to lactic acidosis secondary to prolonged cardiac arrest 5. Acute complete heart block 6. Acute kidney injury 7. Hypoalbuminemia 8. Anemia Critical Care Procedure Note Authorized and performed by: Slade Bernard M.D. Critical Care Time: 74 minutes Due to a high probability of clinically significant, life threatening deterioration, the patient required my highest level of preparedness to intervene emergently and I personally spent this critical care time directly and personally managing the patient. This critical care time included obtaining a history, examining the patient, pulse oximetry; ordering and review of studies; arranging urgent treatment with development of a management plan; evaluation of a patients reponse to treatment; frequent assessment; and discussions with other providers. This critical care time was performed to assess and manage the high probability of imminent, life threatening deterioration that could result in multiorgan failure. It was exclusive of separate billable procedures and treating other patients. Please see MDM section and rest of the note for further information on patient assessment and treatment. - Related Data Allergies Allergy/AdvReac Type Severity Reaction Status Date / Time No Known Allergies Allergy Unverified 06/04/20 20:01 Home Meds: Home Meds Aspirin 81 mg PO DAILY tab.chew 09/08/18 [Rx] Insulin Aspart [NovoLOG] See Protocol SUBCUT TIDAC #1 box 09/08/18 [Rx] Pen Needle, Diabetic [Pen Needle] 1 each QID #1 box 09/08/18 [Rx] atorvaSTATin [Lipitor] 80 mg PO BEDTIME #60 tablet 09/08/18 [Rx] Insulin Degludec [Tresiba] 56 unit SQ BEDTIME 03/12/20 [History] Clopidogrel [Plavix] 75 mg PO DAILY 03/13/20 [History] Fluticasone Propionate [Flovent HFA 110 MCG] 2 inh IH BID 03/13/20 [History] Nitroglycerin 0.4 mg SL .EVERY 5 MINUTES PRN 03/13/20 [History] Potassium Chloride [Klor-Con M20] 20 meq PO BID 03/13/20 [History] Albuterol/Ipratropium [Combivent Respimat] 1 puff INH Q4H PRN inhaler 03/17/20 [Rx] Benzonatate [Tessalon Perle] 200 mg PO TID PRN #30 capsule 03/17/20 [Rx] Pantoprazole Sodium [Protonix] 20 mg PO DAILY #30 tablet. 03/17/20 [Rx] Acetaminophen [Tylenol] 650 mg PO Q4H PRN tablet 04/08/20 [Rx] Aloe Vera/Sodium Chloride [Sinclair Saline Nasal Gel] 1 applic EZE Q2H PRN #1 tube 04/08/20 [Rx] Furosemide 40 mg PO DAILY #0 04/08/20 [Rx] Furosemide [Lasix] 40 mg PO DAILY tablet 04/08/20 [Rx] carvediloL [Coreg] 6.25 mg PO BID #60 tablet 04/08/20 [Rx] Furosemide 40 mg PO DAILY PRN 04/16/20 [History] Ascorbic Acid [Vitamin C] 250 mg PO BIDMEALS tablet 04/19/20 [Rx] Ferrous Sulfate 325 mg PO BIDMEALS tablet 04/19/20 [Rx] Past Medical History HEENT History: Reports: None Cardiovascular History: Reports: CAD, Heart Failure, High Cholesterol, Hypertension, Stents Other Cardiovascular History: two stents placed to mid and proximal LAD on 02/29/2020 at [facility] Respiratory History: Reports: Asthma Gastrointestinal History: Reports: None Genitourinary History: Reports: None ORDER DETAILER History: Reports: Musculoskeletal History: Reports: Fibromyalgia Neurological History: Reports: CVA, Other (See Below) Psychiatric History: Reports: Depression Endocrine/Metabolic History: Reports: Diabetes, Type II, Obesity/BMI 30+ Hematologic History: Reports: None Immunologic History: Reports: None Oncologic (Cancer) History: Reports: None Dermatologic History: Reports: None - Infectious Disease History Infectious Disease History: Reports: None - Past Surgical History Head Surgeries/Procedures: Reports: None HEENT Surgical History: Reports: None Cardiovascular Surgical History: Reports: None Respiratory Surgical History: Reports: Lung Biopsies GI Surgical History: Reports: None Female Surgical History: Reports: Hysterectomy Endocrine Surgical History: Reports: None Neurological Surgical History: Reports: None Musculoskeletal Surgical History: Reports: None Oncologic Surgical History: Reports: None Dermatological Surgical History: Reports: None Social & Family History - Family History Family Medical History: No Pertinent Family History Cardiac: Reports: CAD, Heart Failure, Hypertension, [place] Endocrine/Metabolic: Reports: Diabetes, type II - Tobacco Use Tobacco Use Status *Q: Unknown Ever Used Tobacco - Caffeine Use Caffeine Use: Reports: Coffee, Soda, Tea Caffeine Use Comment: 1 cup coffee a day - Living Situation & Occupation Living situation: Reports: Occupation: Employed ED ROS GENERAL - Review of Systems Review Of Systems: See Below ED EXAM, GENERAL - Physical Exam Exam: See Below Course - Orders/Labs/Meds Orders: Active Orders 24 hr Category Date Time Status Baird Catheter Insertion [Insert Urinary Catheter] [OM. Care 06/04/20 23:45 Ordered PC] Q24H Saline Lock Insert [OM.PC] Stat Oth 06/04/20 19:02 Ordered Saline Lock Insert [OM.PC] Stat Oth 06/04/20 19:03 Ordered Labs: Laboratory Tests 06/04/20 06/04/20 06/04/20 Range/Units 18:55 18:55 18:55 WBC 16.07 H (4.0-11.0) K/uL RBC 3.31 L (4.30-5.90) M/uL Hgb 8.5 L (12.0-16.0) g/dL Hct 28.1 L (36.0-46.0) % MCV 84.9 (80.0-98.0) fL MCH 25.7 L (27.0-32.0) pg MCHC 30.2 L (31.0-37.0) g/dL RDW Std Deviation 46.9 (28.0-62.0) fl RDW Coeff of Speedy 15 (11.0-15.0) % Plt Count 196 (150-400) K/uL MPV 12.20 H (7.40-12.00) fL Add Manual Diff YES Neutrophils % (Manual) 50 (48.0-80.0) % Band Neutrophils % 20 % Lymphocytes % (Manual) 20 (16.0-40.0) % Monocytes % (Manual) 5 (0.0-15.0) % Metamyelocytes % 4 % Myelocytes % 1 % Nucleated RBC % 0.2 /100WBC Absolute Seg Neuts 8.0 H (1.4-5.7) Band Neutrophils # 3.2 Lymphocytes # (Manual) 3.2 H (0.6-2.4) Monocytes # (Manual) 0.8 (0.0-0.8) Absolute Metamyelocyte 0.6 Absolute Myelocytes 0.2 Nucleated RBCs # 0 K/uL Plt Morphology Comment INR 1.30 ABG pH (7.35-7.45) ABG pCO2 (35-45) mmHG ABG pO2 (75-100) mmHG ABG HCO3 (22-26) mEq/L ABG Total CO2 ABG Base Excess (-2.0-2.0) Sodium 128 L (136-145) mmol/L Potassium 4.4 (3.5-5.1) mmol/L Chloride 92 L (98-107) mmol/L Carbon Dioxide 18.1 L (21.0-32.0) mmol/L BUN 30 H (7.0-18.0) mg/dL Creatinine 2.2 H (0.6-1.0) mg/dL Est Cr Clr Drug Dosing TNP Estimated GFR (MDRD) 23.9 ml/min Glucose 454 H (74-106) mg/dL Calcium 8.4 L (8.5-10.1) mg/dL Total Bilirubin 0.4 (0.2-1.0) mg/dL AST 52 H (15-37) IU/L ALT 40 (14-63) IU/L Alkaline Phosphatase 131 H (46-116) U/L Troponin I < 0.050 (0.000-0.056) ng/mL Total Protein 5.9 L (6.4-8.2) g/dL Albumin 1.8 L (3.4-5.0) g/dL Globulin 4.1 H (2.6-4.0) g/dL Albumin/Globulin Ratio 0.4 L (0.9-1.6) Blood Type Antibody Screen 06/04/20 06/04/20 Range/Units 19:05 19:37 WBC (4.0-11.0) K/uL RBC (4.30-5.90) M/uL Hgb (12.0-16.0) g/dL Hct (36.0-46.0) % MCV (80.0-98.0) fL MCH (27.0-32.0) pg MCHC (31.0-37.0) g/dL RDW Std Deviation (28.0-62.0) fl RDW Coeff of Speedy (11.0-15.0) % Plt Count (150-400) K/uL MPV (7.40-12.00) fL Add Manual Diff Neutrophils % (Manual) (48.0-80.0) % Band Neutrophils % % Lymphocytes % (Manual) (16.0-40.0) % Monocytes % (Manual) (0.0-15.0) % Metamyelocytes % % Myelocytes % % Nucleated RBC % /100WBC Absolute Seg Neuts (1.4-5.7) Band Neutrophils # Lymphocytes # (Manual) (0.6-2.4) Monocytes # (Manual) (0.0-0.8) Absolute Metamyelocyte Absolute Myelocytes Nucleated RBCs # K/uL Plt Morphology Comment INR ABG pH 7.018 L* (7.35-7.45) ABG pCO2 75 H (35-45) mmHG ABG pO2 95 (75-100) mmHG ABG HCO3 19 L (22-26) mEq/L ABG Total CO2 21 ABG Base Excess -12 L (-2.0-2.0) Sodium (136-145) mmol/L Potassium (3.5-5.1) mmol/L Chloride (98-107) mmol/L Carbon Dioxide (21.0-32.0) mmol/L BUN (7.0-18.0) mg/dL Creatinine (0.6-1.0) mg/dL Est Cr Clr Drug Dosing Estimated GFR (MDRD) ml/min Glucose (74-106) mg/dL Calcium (8.5-10.1) mg/dL Total Bilirubin (0.2-1.0) mg/dL AST (15-37) IU/L ALT (14-63) IU/L Alkaline Phosphatase (46-116) U/L Troponin I (0.000-0.056) ng/mL Total Protein (6.4-8.2) g/dL Albumin (3.4-5.0) g/dL Globulin (2.6-4.0) g/dL Albumin/Globulin Ratio (0.9-1.6) Blood Type O NEGATIVE Antibody Screen NEGATIVE Meds: Medications Discontinued Medications Generic Name Dose Route Start Last Admin Trade Name Davidq PRN Reason Stop Dose Admin Atropine Sulfate 1 mg 06/04/20 23:31 06/04/20 23:38 Atropine 1 Mg/Ml IVPUSH 06/04/20 23:32 Not Given ONETIME ONE Epinephrine HCl 1 mg 06/04/20 23:31 06/04/20 23:38 Adrenalin IVPUSH 06/04/20 23:32 Not Given NOW ONE Epinephrine HCl 1 mg 06/04/20 23:33 06/04/20 23:38 Adrenalin IVPUSH 06/04/20 23:34 Not Given NOW ONE Epinephrine HCl 1 mg 06/04/20 23:33 06/04/20 23:38 Adrenalin IVPUSH 06/04/20 23:34 Not Given NOW ONE Sodium Chloride 1,000 mls @ 999 mls/hr 06/04/20 19:03 06/04/20 23:38 Normal Saline IV 06/04/20 20:03 999 mls/hr STAT ONE Administration Amiodarone HCl/Dextrose 200 mls @ 33.333 mls/hr 06/04/20 19:15 Nexterone In Dextrose 360 Mg/200 Ml IV STAT DUNIA 1 MG/MIN Norepinephrine Bitartrate Confirm 06/04/20 19:07 06/04/20 23:37 Norepinephr-0.9% Nacl 4 Mg/250 Administered 06/04/20 19:08 Not Given Dose 4 mg in 250 mls @ as directed IV .STK-MED ONE Norepinephrine Bitartrate 4 mg in 250 mls @ 7.5 mls/hr 06/04/20 19:15 Norepinephr-0.9% Nacl 4 Mg/250 IV TITRATE DUNIA Protocol 2 MCG/MIN Amiodarone HCl/Dextrose 360 mg in 200 mls @ 33.333 mls/hr 06/04/20 19:15 06/04/20 19:03 Nexterone In Dextrose 360 Mg/200 Ml IV 06/05/20 01:14 1 mg/min ONETIME ONE 33.333 mls/hr Administration 1 MG/MIN Magnesium Sulfate 2 gm 06/04/20 19:03 06/04/20 18:56 Magnesium Sulfate 50% IV 06/04/20 19:04 2 gm ONETIME ONE Administration Sodium Chloride 10 ml 06/04/20 19:02 Saline Flush FLUSH ASDIRECTED PRN Keep Vein Open Sodium Chloride 2.5 ml 06/04/20 19:02 Saline Flush FLUSH ASDIRECTED PRN Keep Vein Open Sodium Chloride 10 ml 06/04/20 19:03 Saline Flush FLUSH ASDIRECTED PRN Keep Vein Open Sodium Chloride 2.5 ml 06/04/20 19:03 Saline Flush FLUSH ASDIRECTED PRN Keep Vein Open Departure - Departure Time of Disposition: 20:35 Disposition: 20 Clinical Impression: Cardiac arrest - Discharge Information Referrals: Rachel Koch MD [Primary Care Provider] - Forms: ED Department Discharge Sepsis Event Note (ED) - Evaluation Sepsis Screening Result: No Definite Risk - My Orders Last 24 Hours: My Active Orders 06/04/20 23:45 Baird Catheter Insertion [Insert Urinary Catheter] [OM.PC] Q24H - Assessment/Plan Last 24 Hours: My Active Orders 06/04/20 23:45 Baird Catheter Insertion [Insert Urinary Catheter] [OM.PC] Q24H
== END 2020-06-04 20:35 | disposition expired ==
LOC: MW.ED 18:57
DX: I46.9 Cardiac arrest, cause unspecified (principal); R57.0 Cardiogenic shock; I11.0 Hypertensive heart disease with heart failure; I50.9 Heart failure, unspecified; D72.829 Elevated white blood cell count, unspecified; E87.2 Acidosis; I44.2 Atrioventricular block, complete; N17.9 Acute kidney failure, unspecified; E88.09 Other disorders of plasma-protein metabolism, not elsewhere classified; D64.9 Anemia, unspecified; J45.909 Unspecified asthma, uncomplicated; E66.9 Obesity, unspecified; Z68.22 Body mass index [BMI] 22.0-22.9, adult; I25.10 Atherosclerotic heart disease of native coronary artery without angina pectoris; E11.9 Type 2 diabetes mellitus without complications; Z99.81 Dependence on supplemental oxygen; Z95.5 Presence of coronary angioplasty implant and graft; Z79.82 Long term (current) use of aspirin; Z79.4 Long term (current) use of insulin; Z79.02 Long term (current) use of antithrombotics/antiplatelets; Z79.899 Other long term (current) drug therapy; Z86.73 Personal history of transient ischemic attack (TIA), and cerebral infarction without residual deficits
CPT/HCPCS: 36415; 36556; 36600; 43752; 51702; 71045; 80053; 82803; 84484; 85025; 85610; 86850; 86900; 86901; 92950; 92960; 93005; 96365; 96366; 99285; J0282; J3475; J7030; 93010; 99291